=== PATIENT | female | born 1945 | race Caucasian/White ===

== ENCOUNTER 2016-11-29 08:26 | Inpatient (IN) ==
[2016-11-29] MEDS ORDERED: Famotidine 20 MG/2 ML VIAL IVP ONE (09:06)
[2016-11-29] MEDS ORDERED: cloNIDine HCl 0.1 MG TABLET PO ONE (09:07)
--- NOTE | 2016-11-29 09:11 | Anesthesia Evaluation PreOp ---
Date of Encounter: 11/29/16 Time of Encounter: 09:10 - Past History Planned Operation: Endoscopy Cardiac History: HTN Pulmonary History: Denies Any Significant HX MEDICAL RESEARCH TECH History: Denies Any Significant HX Other Medical History: Diabetes Type II, GERD, Other (Morbid Obesity) Anesthesia History: No Prior Anesthetic Complications : No Alcohol Use: none Drug use: none Medications and Allergies Alendronate Sodium [Fosamax] 70 mg PO QWEEK 11/15/15 [History] Aspirin [Adult Low Dose Aspirin EC] 81 mg PO DAILY 11/15/15 [History] Cholecalciferol (Vitamin D3) [Vitamin D3] 1,000 unit PO DAILY 11/15/15 [History] CloNIDine HCl [Clonidine HCl] 0.3 mg PO BID 11/15/15 [History] Furosemide [Lasix] 40 mg PO DAILY 11/15/15 [History] HydrALAZINE 25 mg PO TID 11/15/15 [History] Insulin ASPART [Novolog Flexpen] 15 unit SQ TIDWM 11/15/15 [History] Insulin Glargine,Hum.rec.anlog [Lantus Solostar] 65 unit SQ HS 11/15/15 [History ] Losartan Potassium [Cozaar] 100 mg PO DAILY 11/15/15 [History] Metformin [Glucophage] 1,000 mg PO BIDWM 11/15/15 [History] Metoprolol Tartrate [Lopressor] 50 mg PO BID 11/15/15 [History] Nystatin POWDER [Nystop] 1 appl TP BID PRN 11/15/15 [History] Oxybutynin Chloride [Ditropan Xl] 10 mg PO QPM 11/15/15 [History] Pravastatin Sodium [Pravachol] 80 mg PO DAILY 11/15/15 [History] Solifenacin Succinate [Vesicare] 10 mg PO QPM 11/15/15 [History] Alprazolam [Xanax 0.5 MG Tablet] 0.5 mg PO Q8HR PRN #30 tablet 11/19/15 [Rx] Albuterol Sulfate [Albuterol Inhaler] 2 puff IH Q4HR PRN 11/27/15 [History] Fluticasone/Salmeterol [Advair 100-50 Diskus] 1 puff IH BID PRN 11/27/15 [ History] Oxycodone HCl/Acetaminophen [Percocet 5-325 mg Tablet] 1 each PO Q6HR #30 tablet 12/03/15 [Rx] Ondansetron HCl [Zofran] 4 mg PO 2-3XD PRN #14 tablet 12/26/15 [Rx] Ibuprofen [Motrin] 800 mg PO Q8HR PRN 03/28/16 [History] Oxycodone HCl/Acetaminophen [Percocet 5-325 mg Tablet] 1 each PO Q6HR PRN [History] HYDROcodone/Acet 5/325 mg [Roby 5-325 mg] 1 tab PO Q6HR PRN #10 tablet [Rx] Ondansetron [Zofran] 8 mg PO Q8HR PRN #10 tablet 06/05/16 [Rx] Ferrous Sulfate 325 mg PO DAILY #90 tablet 10/05/16 [Rx] Allergies Sulfa (Sulfonamide Antibiotics) Allergy (Verified 03/30/16 14:46) Swelling of Lip/Tongue/Throat - Meds/Allergy Pre-op Review Medications Reviewed: Yes Allergies Reviewed: Yes Beta Blockers on Current Med List: Yes Anesthesia Results - Labs Laboratory Tests 02/08/16 11/17/16 11/17/16 14:01 14:10 14:10 Hgb 11.3 L Hct 37.6 Plt Count 334 Sodium 138 Potassium 4.0 BUN 24 H POC Creatinine 0.90 Anesthesia Exam O2 Sat Height 1.5 m Height 1.5 m Weight 91.626 kg Weight 91.626 kg O2 Sat by Pulse Oximetry 93 Vital Signs Temp Pulse Resp BP Pulse Ox 98.8 F 58 18 223/87 93 11/29/16 09:01 11/29/16 09:01 11/29/16 09:01 11/29/16 09:01 11/29/16 09:01 Height: 4'11 Weight: 202 lbs NPO (# of Hours): MN Pain Scale: 0 - HEENT Pupil (Motor): Pupils equal, EOMI Mallampati: III Oral Opening: Less than or equal to 3 - MEDICAL RESEARCH TECH LOC: Oriented MEDICAL RESEARCH TECH Motor: Normal RUE, Normal LUE, Normal RLE, Normal LLE, Normal Face MEDICAL RESEARCH TECH Sensory: Normal: RUE, LUE, RLE, LLE, Face - Cardiac Rhythm: Regular Murmur: None JVD: No Carotid Bruit: No - Pulmonary Breath Sounds: bilateral Clear Respiratory Effort: Symmetrical Anesthesia Assess/Plan ASA Score: 3 (MO HTN) Modified [place] Scale for Level of Consciousness: Cooperative, oriented, and tranquil Anesthetic Plan: MAC Monitoring Plan: Standard Monitors Recovery Plan: Other (Discussed MAC, agrees to proceed)
[2016-11-29] MEDS ORDERED: 0.9 % Sodium Chloride 1,000 ML IVC SCH (09:15)
[2016-11-29] MEDS ORDERED: CeFAZolin Pre 2,000 MG/100 ML 2,000 MG/100 ML BAG IVPB ONE (09:19)
[2016-11-29] MEDS ORDERED: Lidocaine -MPF 1% 2 ML VIAL ID ONE (09:19)
--- NOTE | 2016-11-29 09:19 | History & Physical Report ---
Date of Encounter: 11/29/16 Time of Encounter: 09:17 24 Hour HP Update - Instructions Instructions: If the History and Physical is less than 30 days old and was completed prior to A.M. admission and or procedure and has NOT been updated on calendar day of procedure please complete this update prior to performing procedure. - Update Patient reports changes in Medical Condition: No Changes in examination, assessment, or condition: No Changes in Medication: No Preop tests/diagnostics Reviewed: Yes Surgery Remains Indicated: Yes Consent for Planned Operative Procedure(s) Verified: Yes Additions to current History and Physical: all questions answered. films reviewed today - Pre-Operative Checklist Preoperative Checklist Indicated: Yes Prophylactic Antibiotic Ordered: Yes Home Medications Include Beta Laura: Yes Beta Laura Taken Today (Day of Surgery): Yes Beta Laura Taken Yesterday (Day Prior to Surgery): Yes Is VTE Prophylaxis Indicated?: Yes
[2016-11-29] MEDS ORDERED: Albuterol 2.5 MG/3 ML NEBULIZER IH ONE (09:21)
[2016-11-29] MEDS ORDERED: Ringers Solution, Lactated 1,000 ML IVC SCH (09:30)
--- NOTE | 2016-11-29 09:37 | Anesthesia Evaluation PreOp ---
Date of Encounter: 11/29/16 Time of Encounter: 09:35 - Past History Planned Operation: Left Partial Nephrectomy Cardiac History: AK, HTN, Hyperlipidemia, Cardiac Surgery (2003), Cardiac Stent (2003) Pulmonary History: KATINA Dx BUSHWALKING GUIDE History: Denies Any Significant HX Other Medical History: Diabetes Type II, Other (Morbid Obesity) Anesthesia History: No Prior Anesthetic Complications : No Alcohol Use: none Drug use: none Medications and Allergies Alendronate Sodium [Fosamax] 70 mg PO QWEEK 11/15/15 [History] Aspirin [Adult Low Dose Aspirin EC] 81 mg PO DAILY 11/15/15 [History] Cholecalciferol (Vitamin D3) [Vitamin D3] 1,000 unit PO DAILY 11/15/15 [History] CloNIDine HCl [Clonidine HCl] 0.3 mg PO BID 11/15/15 [History] Furosemide [Lasix] 40 mg PO Q48H 11/15/15 [History] Insulin ASPART [Novolog Flexpen] 15 unit SQ TIDWM 11/15/15 [History] Insulin Glargine,Hum.rec.anlog [Lantus Solostar] 65 unit SQ HS 11/15/15 [History ] Losartan Potassium [Cozaar] 100 mg PO DAILY 11/15/15 [History] Metformin [Glucophage] 1,000 mg PO BIDWM 11/15/15 [History] Metoprolol Tartrate [Lopressor] 50 mg PO BID 11/15/15 [History] Pravastatin Sodium [Pravachol] 80 mg PO HS 11/15/15 [History] Solifenacin Succinate [Vesicare] 10 mg PO 1500 11/15/15 [History] Albuterol Sulfate [Albuterol Inhaler] 2 puff IH Q4HR PRN 11/27/15 [History] Ferrous Sulfate 325 mg PO 1500 11/29/16 [History] Hydralazine HCl 100 mg PO TID 11/29/16 [History] [place]-3/Dha/Epa/Fish Oil [Fish Oil 1,000 mg Softgel] 1 each PO 1500 11/29/16 [ History] Allergies Sulfa (Sulfonamide Antibiotics) Allergy (Verified 11/29/16 09:22) Swelling of Lip/Tongue/Throat - Meds/Allergy Pre-op Review Medications Reviewed: Yes Allergies Reviewed: Yes Beta Blockers on Current Med List: Yes (Took Metoprolol today 0830) Anesthesia Results - Labs Laboratory Tests 02/08/16 11/17/16 11/17/16 14:01 14:10 14:10 Hgb 11.3 L Hct 37.6 Plt Count 334 Sodium 138 Potassium 4.0 BUN 24 H POC Creatinine 0.90 - Imaging EKG: pending Anesthesia Exam O2 Sat Height 1.5 m Height 1.5 m Weight 91.626 kg Weight 91.626 kg O2 Sat by Pulse Oximetry 93 Vital Signs Temp Pulse Resp BP Pulse Ox 98.8 F 58 18 223/87 93 11/29/16 09:01 11/29/16 09:01 11/29/16 09:01 11/29/16 09:01 11/29/16 09:01 Height: 4'11 Weight: 202 lbs NPO (# of Hours): MN Pain Scale: 0 - HEENT Pupil (Motor): Pupils equal, EOMI Mallampati: III Teeth: Normal Oral Opening: Less than or equal to 3 - BUSHWALKING GUIDE LOC: Oriented BUSHWALKING GUIDE Motor: Normal RUE, Normal LUE, Normal RLE, Normal LLE, Normal Face BUSHWALKING GUIDE Sensory: Normal: RUE, LUE, RLE, LLE, Face - Cardiac Rhythm: Irregular Murmur: None JVD: No Carotid Bruit: No - Pulmonary Breath Sounds: bilateral Clear Respiratory Effort: Symmetrical Anesthesia Assess/Plan ASA Score: 3 (CAD HTN DM) Modified Emmett Scale for Level of Consciousness: Cooperative, oriented, and tranquil Anesthetic Plan: General Monitoring Plan: Standard Monitors Recovery Plan: PACU (Discussed GA, agrees to proceed)
[2016-11-29] MEDS ORDERED: Heparin 1,000 UNITS/500 mL NS 500 ML ONE (09:46)
[2016-11-29] MEDS ORDERED: *HR* FentaNYL (PF) 100 MCG/2 ML VIAL ONE (09:49)
[2016-11-29] MEDS ORDERED: *HR* Propofol 200 MG/20 ML VIAL IVP ONE (09:50)
[2016-11-29] MEDS ORDERED: Lidocaine -MPF 2% 2 ML VIAL ONE ×2 (09:54→10:02)
[2016-11-29] MEDS ORDERED: Tetracaine/PF 20 MG/2 ML AMPUL SPINA ONE (10:25)
[2016-11-29] MEDS ORDERED: Bupivacaine/EPI 1:200k 0.25%PF 10 ML VIAL INFILT ONE (10:30)
[2016-11-29] MEDS ORDERED: *HR* Midazolam HCl 2 MG/2 ML VIAL ONE (10:33)
[2016-11-29] MEDS ORDERED: Ketamine *HR* 500 MG/10 ML MDV ONE (11:24)
[2016-11-29] MEDS ORDERED: *HR* Magnesium Sulfate 1 GM/2 ML VIAL ONE (11:29)
[2016-11-29] MEDS ORDERED: NiCARdipine 2.5 MG/10 ML Syringe IVPB ONE (11:41)
[2016-11-29] MEDS ORDERED: Dexamethasone 4 MG/ML VIAL ONE (11:54)
[2016-11-29] MEDS ORDERED: *HR* Rocuronium Bromide 50 MG/5 ML VIAL ONE (12:04)
[2016-11-29] MEDS ORDERED: *HR* HYDROmorphone (PF) 1 MG/ML SYRINGE IVP PRN ×2 (12:22→16:15)
[2016-11-29] MEDS ORDERED: *HR* Promethazine 25 MG/ML VIAL IVP PRN (12:22)
--- NOTE | 2016-11-29 12:26 | Anesthesia Procedures ---
Date of Encounter: 11/29/16 Time of Encounter: 10:50 Procedures: Anesthesia - Arterial Line Consent obtained: written consent Time out performed: Yes Sedation: Versed (mg): 2 Sedation: Fentanyl (mcg): 100 Supplemental Oxygen via Nasal Cannula (L/min): 10 (facemask) Local Anesthetic: Lidocaine 1% Amount of Anesthetic used (mls): 1 Size (Gauge): 20 Length (inches): 1 3/4 Technique Used: sterile prep, guide wire technique, direct puncture technique Post-Procedure: line taped into place, dry sterile dressing placed Patient tolerated procedure: well, no complications Complications: none Site: Radial L Vitals: see anesthetic record
[2016-11-29] MEDS ORDERED: Ondansetron 4 MG/2 ML VIAL ONE (13:22)
[2016-11-29] MEDS ORDERED: Acetaminophen IV 1,000 MG/100 ML INFUS..BTL ONE (13:22)
[2016-11-29] MEDS ORDERED: Neostigmine Methylsulfate 3 MG/3 ML SYRINGE ONE (13:24)
[2016-11-29] MEDS ORDERED: *HR* HYDROmorphone 2 MG/ML SYRINGE ONE (13:31)
--- NOTE | 2016-11-29 13:54 | Operative Note ---
Date of procedure: 11/29/16 Pre-op diagnosis: left renal mass Post-op diagnosis: same Procedure: left hand assist laparoscopic nephrectomy Anesthesia: GETA Surgeon: Ori Posada Estimated blood loss (cc): 100 Specimen: left kidney Condition: stable Disposition: PACU Procedure in Detail: Patient was taken back to the operating room and position supine on the operating table. Anesthesia was applied without complication. Membreno catheter was placed with return of clear urine. IVs and arterial line placed. Patient was moved into a modified 45 left flank position. Patient was secured with tape and the safety belt. She was prepped and draped sterile fashion. Timeout was performed to confirm the proper patient and procedure. Films were available for review which confirmed a 4+ centimeter left renal mass. It was also noted that she had 2 renal arteries. I began the procedure by making a 7 cm incision to the left lateral aspect of her umbilicus in a vertical orientation. There was an umbilical hernia in this location and I carefully dissected down until I entered the peritoneum. I used a Godwin retractor to examine the abdomen prior to placing my hand port. There were a moderate amount of adhesions from previous surgery. These were fairly easy to reflect off of the abdominal wall using blunt dissection and Metzenbaum scissors. At that point I placed the GelPort and provided pneumoperitoneum with a 12 mm port through the GelPort. I eventually placed 2 additional 12 mm ports one along the midline superior to the GelPort and the other in the left lower quadrant. These were placed down on to the surgeon's hand which protecting the intra-abdominal contents. I began the laparoscopic portion of procedure by using the harmonic scalpel to reflect the left colon along the white line of Toldt from the splenic flexure down to the sigmoid colon. There were no obvious complications during the reflection of the colon. This exposed the retroperitoneum and I did identify the left kidney. Using the Harmonic I was able to free up some of the attachments beneath the spleen to further allow the colon to fall medially. I had airplaned the table to create a more lateral position to help with this reflection and exposure of the kidney. Working near the tail of Gerota's fascia I identified a sizable gonadal vein. This was seen preoperatively on the MRI. I was able to dissect the gonadal vein allowing room for the endovascular stapler to transect the vessel. I then carried my dissection superiorly along the gonadal vein and I encountered the renal vein. Inferior and posterior to the renal vein identified the lower pole renal artery. Using a combination of blunt dissection, suction, the Harmonic I was able to free up enough space to staple the renal artery using the endovascular stapler. I then began to dissect around the renal vein and identified the second renal artery posterior to the vein. During this maneuver I had some bleeding from the gonadal vein which required a large staple to control. The staple was placed at the junction of the gonadal vein and renal vein. I was eventually able to place the endovascular stapler around both the renal vein and artery on the renal side of the gonadal vein. The hilum was transected at this point. I used 3 additional staple loads to aid in dissection along the adrenal gland and superior aspects of the kidney. Remaining attachments of the kidney were dissected using the harmonic until the kidney was completely free. The ureter was transected with the Harmonic scalpel . I removed the hand port and placed the large Endo Catch bag through the abdominal incision. I was able to maneuver the specimen into the bag without difficulty. I was able to extract the bag and kidney without increasing the incision. I replaced the GelPort and pneumoperitoneum. I examined the hilum carefully and there was no significant bleeding and all bowel appeared intact. The lap pad that was placed within the abdomen was removed. I closed the hand port incision using #1 loop PDS. I simultaneously closed the defect in the umbilical hernia. Safia's tissue was closed with 0 Vicryl and the skin with 4- 0 Monocryl. Steri-Strips and an island dressing were placed. The 12 mm ports were closed with 2-0 Vicryl and Steri-Strips.
--- NOTE | 2016-11-29 14:04 | Anesthesia Procedures ---
Date of Encounter: 11/29/16 Time of Encounter: 14:01 Procedures: Anesthesia - Nerve Block Procedure Date: 11/29/16 Time: 14:02 Allergies/Adv Reactions: sulfa antibiotics Pre-op Diagnosis: L renal mass Surgical Procedure: Laparoscopic hand assisted L radical nephrectomy Checklist: Correct Patient Identifier, Correct procedure, History checked Correct side: Left Blood Thinner: No Monitor Applied: EKG, BP, Pulse Oximetry Supplemental Oxygen via Nasal Cannula (L/min): 2 (via ETT) Indication: Post Op Analgesia Pre-op Neuro Deficits: No Block Type: Other (quadratus lumborum block) Catheter placed: No Sterile Technique: Yes Ultrasound used: Yes Anatomy identified: Yes Visual spread of Local: Yes Neuro Stimulation: No Blood on Needle Aspiration: No Smooth Injection of Local: Yes Prep: Chlorhexadine Needle: 21 x 100 mm Stimuplex (echogenic) Local: Tetracaine (2mL of 1%), Other (30mL of 0.25% bupivicaine) Number of Attempts: 1 Complications: None/effective block Vitals: see anesthesia record
[2016-11-29] MEDS ORDERED: Bupivacaine/Clonidine Syringe 1 EACH SYRINGE ONE (14:28)
--- NOTE | 2016-11-29 15:15 | Internal Medicine Consult Note ---
<Lulu Quinteroaju T - Last Filed: 11/29/16 18:22> Date of Encounter: 11/29/16 Internal Medicine - CN: HPI - Data of Consult Requesting Physician: Ori Posada - Consult Narrative History of present illness: Ms. Hitchcock is a 71 year old female Internal Medicine - CN: Meds Alendronate Sodium [Fosamax] 70 mg PO QWEEK 11/15/15 [History] Aspirin [Adult Low Dose Aspirin EC] 81 mg PO DAILY 11/15/15 [History] Cholecalciferol (Vitamin D3) [Vitamin D3] 1,000 unit PO DAILY 11/15/15 [History] CloNIDine HCl [Clonidine HCl] 0.3 mg PO BID 11/15/15 [History] Furosemide [Lasix] 40 mg PO Q48H 11/15/15 [History] Insulin ASPART [Novolog Flexpen] 15 unit SQ TIDWM 11/15/15 [History] Insulin Glargine,Hum.rec.anlog [Lantus Solostar] 65 unit SQ HS 11/15/15 [History ] Losartan Potassium [Cozaar] 100 mg PO DAILY 11/15/15 [History] Metformin [Glucophage] 1,000 mg PO BIDWM 11/15/15 [History] Metoprolol Tartrate [Lopressor] 50 mg PO BID 11/15/15 [History] Pravastatin Sodium [Pravachol] 80 mg PO HS 11/15/15 [History] Solifenacin Succinate [Vesicare] 10 mg PO 1500 11/15/15 [History] Albuterol Sulfate [Albuterol Inhaler] 2 puff IH Q4HR PRN 11/27/15 [History] Ferrous Sulfate 325 mg PO 1500 11/29/16 [History] Hydralazine HCl 100 mg PO TID 11/29/16 [History] [place]-3/Dha/Epa/Fish Oil [Fish Oil 1,000 mg Softgel] 1 each PO 1500 11/29/16 [ History] Allergies Sulfa (Sulfonamide Antibiotics) Allergy (Verified 11/29/16 09:22) Swelling of Lip/Tongue/Throat Internal Medicine - CN: Exam - Constitutional Vitals: Temp Pulse Resp BP Pulse Ox 97.2 F L 65 16 163/80 97 11/29/16 17:46 11/29/16 17:46 11/29/16 17:46 11/29/16 17:46 11/29/16 17:46 Internal Medicine - CN: Reslt - Labs CBC & Chem 7: 11/29/16 16:20 Labs: BMP 11/29/16 16:20 Sodium 135 L Potassium 4.8 H Chloride 102 Carbon Dioxide 20 BUN 23 H Creatinine 1.30 H Glucose 309 H Calcium 9.1 Consult Discharge Plan - Plan Referrals: Ping Rich DO [Primary Care Provider] - - Attending Attestation I have independently interviewed and examined this patient. I agree with the resident/practitioner with extensions as stated below. The plan of care has been discussed with the patient, resident and rest of the team 71 Y/O F, medicine is consulted by ANJALI for management of her multiple medical conditions. She has an extensive PMH including HTN, chronically uncontrolled ( as per family members at the bedside), KATINA, Uncontrolled DM, CAD s/p CABG, CHFpEF, Stage I Colon CA s/p bowel resection 1 year ago, Renal cell CA s/p nephrectomy today 11/29/16 Seen at bedside post-op with family, easily arousable , not in distress, BP is better now. Physical exam VSS, chest wall scar, Hs S1, S2, Systolic murmurs, metallic click, CTAB, no added sounds. Abdomen is soft, wound dressings clean, no pedal edema No current labs to review. A1C >9 10/2016 Assessment/Plan: HTN Urgency post-op, controlled now, after nerve block, resume home meds, Hold Cozar till chemistry is back, FS ACHS, Resume basal insulin at half dose and continue low dose sliding scale insulin, resume other home meds, rest of details as in INORGANIC CHEMISTRY PROFESSOR Isaac documentation <Itzel Gray - Last Filed: 11/29/16 18:49> Date of Encounter: 11/29/16 Time of Encounter: 15:14 - Assessment and Plan (1) Hypertensive urgency Current Visit: Yes Status: Acute Assessment and plan: 1 has past history of noncompliant hypertension. Patient is on multiple medications for blood pressure including Lopressor Cozaar hydralazine and clonidine. Patient underwent left nephrectomy today. Prior to procedure patient's blood pressure was systolic over 200. She was given by mouth clonidine. However postoperatively patient's blood pressure continued to be elevated 200 systolic. She was given hydralazine with little response. Patient was also given nerve block which did improve patient's blood pressure. Once patient is taking oral medications we will resume home medications. we will hold losartan dt elevation in creatinine and potassium We will give patient hydralazine as needed for systolic greater than 180 goal is to maintain systolic around 160 2 we will check lab work 3 low sodium diet once patient is eating 4 monitor weight (2) Status post nephrectomy Current Visit: Yes Status: Acute Assessment and plan: 1 patient has history of renal cell carcinoma underwent left nephrectomy today- managed per Dr. Posada (3) KATINA (obstructive sleep apnea) Current Visit: Yes Status: Acute Assessment and plan: 1 she has history obstructive sleep apnea she does not use CPAP at home patient on oxygen at night will continue (4) Coronary artery disease Current Visit: No Status: Chronic Assessment and plan: 1 recent has history of coronary disease she did have a CABG 04/10. We will continue with beta amos ARB statin Qualifiers: Coronary Disease-Associated Artery/Lesion type: bypass graft Elim Ira vs. transplanted heart: quileute heart Associated angina: without angina Qualified Code(s): I25.810 - Atherosclerosis of coronary artery bypass graft(s) without angina pectoris (5) Diabetes mellitus Current Visit: No Status: Chronic Assessment and plan: 1 uncontrolled diabetes patient's last A1c is 9.2. We will continue with Accu- Cheks before meals and at bedtime as well as sliding scale and basal insulin. We will hold metformin for now. Goal is to maintain postprandial less than 180 2 diabetic diet Qualifiers: Diabetes mellitus type: type 2 Diabetes mellitus complication status: with hyperglycemia Diabetes mellitus exterminator helper insulin use: with exterminator helper use Qualified Code(s): E11.65 - Type 2 diabetes mellitus with hyperglycemia; Z79.4 - intermediate accountant (current) use of insulin (6) Malignant tumor of ascending colon Current Visit: No Status: Chronic Assessment and plan: 1 patient diagnosed stage I colon cancer. She is being followed by oncology with outpatient follow-up as outpatient and consult as needed (7) Renal mass, left Current Visit: No Status: Chronic Assessment and plan: 1 patient underwent right nephrectomy today she is being managed by Dr. Posada. We will have patient follow-up with oncology and consult as needed (8) CKD (chronic kidney disease) stage 2, GFR 60-89 ml/min Current Visit: Yes Status: Chronic Assessment and plan: 1 patient's creatinine presently 1.11 GFR is 48. We will continue to monitor 2 monitor intake and output daily weights 3 avoid nephrotoxins (9) DVT prophylaxis Current Visit: Yes Status: Acute Assessment and plan: 1 [facility] [place] [place] [facility] - CN: HPI - Data of Consult Patient: new to practice Consult date: 11/29/16 Requesting Physician: Ori Posada - Consult Narrative Reason for consult: managment of hypertension History of present illness: Ms. Hitchcock is a 71 year old female past medical history of CHF CAD history of CABG 04/10 hypertension ID KATINA renal cell carcinoma stage I colon cancer. Formation obtained from medical records as well as stap since patient postoperative continues to be sedated. She was diagnosed in October with renal cell carcinoma left upper pole mass 3.5 x 3.95x5. She presented today to undergo left nephrectomy due to carcinoma. Upon presentation patient's blood pressure was 200 systolic. She was given clonidine by mouth. She underwent surgical procedure without any complications however postoperatively patient continued to have elevated blood pressure was systolic 200s. She was given hydralazine IV patient with little results. She was given a nerve block which did lower her systolic down to 180s. Patient does have a history of uncontrolled hypertension. Her baseline is around 170-180. Hospitalist services have been consulted for management of hypertension. Presently patient is is in PACU she is groggy however arouses to verbal stimuli. She denies any pain or discomfort at this time. Her blood pressure is 200 systolic. She is maintaining her airway at this time. I reviewed this case with Dr. Quintero who agrees with plan. Past Med Surg Social Fam HX - Past Medical History Medical history: arthritis, asthma, cancer, CHF, coronary artery disease, diabetes, hyperlipidemia, hypertension, myocardial infarction Psychiatric history: anxiety, depression - Past Surgical History Surgical History: angioplasty/stent, cholecystectomy, coronary bypass (CABG) - Social History Smoking Status: Never smoker Smokeless Tobacco Status: No Alcohol use: none Drug use: none - Family History Mother Family Member Ethnicity: Non- Living Status: Hx Family Cardiac Disorders: No Hx Family Respiratory Disorders: No Hx Family Cancer: Yes (rectal Ca) Hx Family GI Disorders: No Hx Family Endocrine Disorder: No Hx Family Neuromuscular Disorders: No Hx Family Neurologic Disorders: No Hx Family HEENT Disorders: No Hx Family Autoimmune Disorders: No ROS unobtainable: other (Sedation) Internal Medicine - CN: Exam - Constitutional Vitals: Temp Pulse Resp BP Pulse Ox 97.9 F 61 10 204/80 97 11/29/16 14:52 11/29/16 15:12 11/29/16 15:12 11/29/16 15:12 11/29/16 15:12 General appearance IM: Present: A&O X 1 Exam: Patient is groggy - Head Head exam: Present: atraumatic - Eye Eye exam: Present: PERRL - Respiratory Respiratory exam: Present: CTAB - Cardiovascular Cardiovascular exam IM: Present: systolic murmur - Expanded Cardiovascular Exam Type of murmur: Present: systolic Intensity: 2/6 - Additional comments: Has mid abdominal incision with dressing intact no redness swelling or drainage noted - Extremities Exam Extremities exam IM: Present: warm, radial pulses palpable and symetrical - Neurological Exam Additional comments: Patient is sedated but arouses to name and follows some commands - Skin Skin exam IM: Present: dry Internal Medicine - CN: Reslt - Labs CBC & Chem 7: 11/29/16 16:20
--- NOTE | 2016-11-29 15:48 | Anesthesia Evaluation Post Op ---
Date of Encounter: 11/29/16 Time of Encounter: 15:45 - Vital Signs Vital Signs: Vital Signs/O2 Sat/Glucose, Most Current Temp Pulse Resp BP Pulse Ox 11/29/16 15:32 65 12 198/73 94 11/29/16 15:22 97.4 F L 58 13 197/86 95 11/29/16 15:12 61 10 204/80 97 11/29/16 15:02 52 12 224/97 96 11/29/16 14:52 97.9 F 56 11 188/80 98 11/29/16 14:42 57 12 184/84 97 11/29/16 14:32 57 12 181/76 95 11/29/16 14:22 98.5 F 55 10 174/75 93 - Lungs Lungs: Clear Ascult./Percussion - Airway Airway: Non-obstructed - Cardiovascular Regular Rate - Mental Status Mental Status: Alert & Oriented, Answers Appropriately - Pain Pain Scale: 0 - Nausea Vomiting Nausea Vomiting: Not Present - Hydration Hydration: Ice chips - Discharge PostOp Status: Transfer Patient to floor
[2016-11-29] MEDS ORDERED: *HR* Dextrose 50 % in Water (Syg) 50 ML SYRINGE IVP PRN (16:15)
[2016-11-29] MEDS ORDERED: *HR* Morphine 2 MG/ML SYRINGE IVP PRN (16:15)
[2016-11-29] MEDS ORDERED: Naloxone 0.4 MG/ML INJ IVP PRN (16:15)
[2016-11-29] MEDS ORDERED: D5% in Water 1,000 ML IVC PRN (16:15)
[2016-11-29] MEDS ORDERED: *HR* Promethazine 25 MG/ML VIAL IV PRN (16:15)
[2016-11-29] MEDS ORDERED: Dextrose Gel 15 GM PO PRN ×2 (16:15)
[2016-11-29] MEDS ORDERED: Ondansetron 4 MG/2 ML VIAL IVP PRN (16:15)
[2016-11-29 16:58] LABS: Calcium 9.1 mg/dL (8.6-10.8); Potassium 4.8 mEq/L (3.5-4.5)
[2016-11-29] MEDS: 0.9 % Sodium Chloride 1,000 ML IVC SCH (17:32)
[2016-11-29] MEDS: Insulin LISPRO 300 UNITS/3 ML VIAL SQ SCH ×2 (17:33→23:46)
[2016-11-29] MEDS: hydrALAZINE 25 MG TABLET PO SCH ×2 (17:33→21:05)
[2016-11-29] MEDS: ceFAZolin 2,000 MG in D5% in Water 100 ML IVPB SCH ×2 (18:49→23:39)
[2016-11-29] MEDS: cloNIDine HCl 0.1 MG TABLET PO SCH (20:59)
[2016-11-29] MEDS: Insulin DETEMIR 100 UNIT/ML X5UNITS SQ SCH (21:00)
[2016-11-30] MEDS: 0.9 % Sodium Chloride 1,000 ML IVC SCH ×3 (04:13→20:43)
[2016-11-30 04:20] LABS: Basophils % 0.2 %; Hematocrit 34.2 % (35.3-44.9); Hemoglobin 10.8 g/dL (11.5-15.4); Immature Granulocytes % 0.7 % (0-4); Lymphocytes # 0.8 K/mcL (0.6-4.6); Lymphocytes % 3.9 %; Mean Corpuscular HGB Conc 31.6 g/dL (31.6-35.5); Mean Corpuscular Volume 79.2 fL (83.0-100.0); Mean Platelet Volume 11.3 fL (9.4-12.4); Monocytes # 2.4 K/mcL (0.0-1.3); Monocytes % 11.4 %; Neutrophils # 17.6 K/mcL (1.6-8.9); Platelet Count 289 K/mcL (140-400); Red Blood Count 4.32 M/mcL (3.82-4.97); Red Cell Distribution Width 15.9 % (11.5-14.5); Segmented Neutrophils % 83.8 %
[2016-11-30 04:38] LABS: Calcium 8.5 mg/dL (8.6-10.8); Potassium 4.8 mEq/L (3.5-4.5)
[2016-11-30] MEDS: Insulin LISPRO 300 UNITS/3 ML VIAL SQ SCH ×3 (05:30→18:07)
--- NOTE | 2016-11-30 07:12 | Urology Progress Note ---
Date of Encounter: 11/30/16 Time of Encounter: 07:03 - Assessment and Plan (1) Acute renal insufficiency due to procedure Current Visit: Yes Status: Acute Assessment and plan: expected rise in Cr. she had some chronic renal insufficiency preoperatively ( GFR 58). will watch closely. increase IVF bc HTN is controlled. (2) Status post nephrectomy Current Visit: Yes Status: Acute Assessment and plan: post op she looks great. smiling and states she feels good. need to continue to get out of bed. Progress Note Subjective: feels better Narrative: minimal pain. no nausea. has been up out of bed to chair Objective Initial Vital Signs Temp Pulse Resp BP Pulse Ox 98.8 F 58 18 223/87 93 11/29/16 09:01 11/29/16 09:01 11/29/16 09:01 11/29/16 09:01 11/29/16 09:01 - General physical appearance Present: no distress, no pain - Abdomen Present: soft. Absent: distended - Genitourinary Urine Appearance: Present: Clear - Additional Exam dressings removed. incisions intact. - Labs 11/30/16 04:00 11/30/16 04:00 Diabetes panel 11/29/16 11/30/16 Range/Units 16:20 04:00 Sodium 135 L 132 L (136-145) mEq/L Potassium 4.8 H 4.8 H (3.5-4.5) mEq/L Chloride 102 101 (98-109) mEq/L Carbon Dioxide 20 23 (19-29) mEq/L BUN 23 H 27 H (7-20) mg/dL Creatinine 1.30 H 1.78 H (0.57-1.11) mg/dL Glucose 309 H 262 H (70-99) mg/dL Calcium 9.1 8.5 L (8.6-10.8) mg/dL Calcium panel 11/29/16 11/30/16 Range/Units 16:20 04:00 Calcium 9.1 8.5 L (8.6-10.8) mg/dL Pituitary panel 11/29/16 11/30/16 Range/Units 16:20 04:00 Sodium 135 L 132 L (136-145) mEq/L Potassium 4.8 H 4.8 H (3.5-4.5) mEq/L Chloride 102 101 (98-109) mEq/L Carbon Dioxide 20 23 (19-29) mEq/L BUN 23 H 27 H (7-20) mg/dL Creatinine 1.30 H 1.78 H (0.57-1.11) mg/dL Glucose 309 H 262 H (70-99) mg/dL Calcium 9.1 8.5 L (8.6-10.8) mg/dL Adrenal panel 11/29/16 11/30/16 Range/Units 16:20 04:00 Sodium 135 L 132 L (136-145) mEq/L Potassium 4.8 H 4.8 H (3.5-4.5) mEq/L Chloride 102 101 (98-109) mEq/L Carbon Dioxide 20 23 (19-29) mEq/L BUN 23 H 27 H (7-20) mg/dL Creatinine 1.30 H 1.78 H (0.57-1.11) mg/dL Glucose 309 H 262 H (70-99) mg/dL Calcium 9.1 8.5 L (8.6-10.8) mg/dL - VTE Documentation of Mechanical Device: Intermittent pneumatic compression device Consult Discharge Plan - Plan Referrals: Ping Rich DO [Primary Care Provider] -
[2016-11-30] MEDS: cloNIDine HCl 0.1 MG TABLET PO SCH ×2 (09:07→20:44)
[2016-11-30] MEDS: hydrALAZINE 25 MG TABLET PO SCH ×3 (09:08→20:44)
[2016-11-30] MEDS: ceFAZolin 2,000 MG in D5% in Water 100 ML IVPB SCH (09:39)
[2016-11-30] MEDS ORDERED: Ondansetron 4 MG/2 ML VIAL IVP PRN (15:22)
--- NOTE | 2016-11-30 17:59 | Electrocardiograph Report ---
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
[2016-11-30] MEDS: *HR* Heparin 5,000 UNIT/ML VIAL SQ SCH (18:07)
--- NOTE | 2016-11-30 18:44 | Internal Med Progress Note ---
Date of Encounter: 11/30/16 Time of Encounter: 11:00 - Assessment and plan (1) Uncontrolled type 2 diabetes mellitus with insulin therapy Current Visit: Yes Status: Acute Assessment and plan: We will manage her diabetes with insulin Levemir and Humalog pre-meal and sliding scale. (2) Coronary artery disease Current Visit: No Status: Chronic Assessment and plan: Continue with aspirin and metoprolol. Qualifiers: Coronary Disease-Associated Artery/Lesion type: bypass graft [place] vs. transplanted heart: [place] heart Associated angina: without angina Qualified Code(s): I25.810 - Atherosclerosis of coronary artery bypass graft(s) without angina pectoris (3) KATINA (obstructive sleep apnea) Current Visit: Yes Status: Acute Assessment and plan: noncompliant w/ CPAP (4) Hypertensive urgency Current Visit: Yes Status: Acute Assessment and plan: Continue oral hydralazine , losartan, metoprolol and clonidine. (5) CKD (chronic kidney disease) stage 2, GFR 60-89 ml/min Current Visit: Yes Status: Chronic (6) DVT prophylaxis Current Visit: Yes Status: Acute - Subjective Interval history: Patient status post left nephrectomy. Currently complains of moderate dull abdominal pain, improved with IV pain medication. - Constitutional Vitals: Temp Pulse Resp BP Pulse Ox 98.2 F 55 18 153/56 98 11/30/16 15:44 11/30/16 15:44 11/30/16 15:44 11/30/16 15:44 11/30/16 15:44 General appearance: Present: A&O X 1 - Respiratory Respiratory exam: Present: CTAB. Absent: accessory muscle use, rales, rhonchi, wheezes - Cardiovascular Cardiovascular exam: Present: RRR, +S1, +S2. Absent: diastolic murmur, gallop, rubs, systolic murmur - GI/Abdominal GI/Abdominal exam: Present: normal bowel sounds, soft, no peritoneal signs. Absent: distended, tenderness - Skin Skin exam: Present: dry, intact Internal Medicine: Result - Labs CBC & Chem 7: 11/30/16 04:00 11/30/16 04:00 Labs: Short CBC 11/30/16 Range/Units 04:00 WBC 21.0 H (4.3-11.1) K/mcL Hgb 10.8 L (11.5-15.4) g/dL Hct 34.2 L (35.3-44.9) % Plt Count 289 (140-400) K/mcL Neutrophils # 17.6 H (1.6-8.9) K/mcL BMP 11/30/16 04:00 Sodium 132 L Potassium 4.8 H Chloride 101 Carbon Dioxide 23 BUN 27 H Creatinine 1.78 H Glucose 262 H Calcium 8.5 L - VTE Documentation of Mechanical Device: Intermittent pneumatic compression device Consult Discharge Plan - Plan Referrals: Ping Rich DO [Primary Care Provider] -
[2016-11-30] MEDS: Insulin DETEMIR 100 UNIT/ML X5UNITS SQ SCH (20:45)
[2016-12-01] MEDS: 0.9 % Sodium Chloride 1,000 ML IVC SCH (03:50)
[2016-12-01] MEDS: *HR* Heparin 5,000 UNIT/ML VIAL SQ SCH ×2 (06:01→17:11)
[2016-12-01] MEDS ORDERED: *HR* HYDROcodone/Acet 5/325 mg TABLET PO PRN (07:06)
[2016-12-01] MEDS ORDERED: *HR* Morphine 2 MG/ML SYRINGE IVP PRN (07:08)
--- NOTE | 2016-12-01 07:11 | Urology Progress Note ---
Date of Encounter: 12/01/16 Time of Encounter: 07:08 - Assessment and Plan (1) Acute renal insufficiency due to procedure Current Visit: Yes Status: Acute Assessment and plan: check labs (2) Status post nephrectomy Current Visit: Yes Status: Acute Assessment and plan: advance diet. pt needs to spend significant time out of bed today. change to PO pain meds. decrease IVF. getting closer to discharge. probably tomorrow depending on labs. Progress Note Subjective: feels better Narrative: states she is urinating well. able to transfer self. no nausea. Objective Initial Vital Signs Temp Pulse Resp BP Pulse Ox 98.8 F 58 18 223/87 93 11/29/16 09:01 11/29/16 09:01 11/29/16 09:01 11/29/16 09:01 11/29/16 09:01 - General physical appearance Present: well developed, no distress - Psychiatric Present: oriented to time, oriented to person, oriented to place - Additional Exam abd benign. not distended. incisions closed and dry - Labs 11/30/16 04:00 11/30/16 04:00 - VTE Documentation of Mechanical Device: Intermittent pneumatic compression device Consult Discharge Plan - Plan Referrals: Ping Rich DO [Primary Care Provider] -
[2016-12-01] MEDS ORDERED: 0.9 % Sodium Chloride 1,000 ML IVC SCH (07:15)
[2016-12-01] MEDS: Insulin LISPRO 300 UNITS/3 ML VIAL SQ SCH ×4 (07:50→20:56)
[2016-12-01] MEDS: hydrALAZINE 25 MG TABLET PO SCH ×3 (07:58→19:42)
[2016-12-01] MEDS: cloNIDine HCl 0.1 MG TABLET PO SCH ×3 (07:58→19:43)
[2016-12-01 08:40] LABS: Hematocrit 36.4 % (35.3-44.9); Hemoglobin 10.8 g/dL (11.5-15.4); Mean Corpuscular HGB Conc 29.7 g/dL (31.6-35.5); Mean Corpuscular Hemoglobin 23.8 pg (28.0-33.3); Mean Corpuscular Volume 80.4 fL (83.0-100.0); Mean Platelet Volume 11.2 fL (9.4-12.4); Platelet Count 286 K/mcL (140-400); Red Blood Count 4.53 M/mcL (3.82-4.97); Red Cell Distribution Width 16.2 % (11.5-14.5)
[2016-12-01] MEDS ORDERED: Furosemide 20 MG TABLET PO SCH (10:00)
[2016-12-01 10:45] LABS: Calcium 8.6 mg/dL (8.6-10.8); Potassium 4.1 mEq/L (3.5-4.5)
[2016-12-01] MEDS ORDERED: cloNIDine HCl 0.1 MG TABLET PO ONE (16:52)
--- NOTE | 2016-12-01 17:42 | Internal Med Progress Note ---
Date of Encounter: 12/01/16 Time of Encounter: 17:38 - Assessment and plan (1) Uncontrolled type 2 diabetes mellitus with insulin therapy Current Visit: Yes Status: Acute Assessment and plan: We will manage her diabetes with insulin Levemir and Humalog pre-meal and sliding scale. Blood glucose 4 times daily but a controlled today. (2) Coronary artery disease Current Visit: No Status: Chronic Assessment and plan: Continue with aspirin and metoprolol. Qualifiers: Coronary Disease-Associated Artery/Lesion type: bypass graft [place] vs. transplanted heart: [place] heart Associated angina: without angina Qualified Code(s): I25.810 - Atherosclerosis of coronary artery bypass graft(s) without angina pectoris (3) KATINA (obstructive sleep apnea) Current Visit: Yes Status: Acute Assessment and plan: noncompliant w/ CPAP (4) Hypertensive urgency Current Visit: Yes Status: Acute Assessment and plan: Continue oral hydralazine , losartan, metoprolol. Increase clonidine to 0.2 mg oral 3 times a day. Consult nephrology for CKD and uncontrolled hypertension. (5) CKD (chronic kidney disease) stage 2, GFR 60-89 ml/min Current Visit: Yes Status: Chronic Assessment and plan: Now status post nephrectomy. Will consult nephrology. Avoid nephrotoxins. Monitor GFR daily. (6) DVT prophylaxis Current Visit: Yes Status: Acute - Subjective Interval history: Patient status post left nephrectomy. Currently complains of mild dull abdominal pain, improved with IV pain medication. - Constitutional Vitals: Temp Pulse Resp BP Pulse Ox 98.2 F 76 16 214/72 96 12/01/16 15:48 12/01/16 15:48 12/01/16 15:48 12/01/16 16:39 12/01/16 15:48 General appearance: Present: A&O X 1 - Eye Eye exam: Present: PERRL, conjuntiva pink, sclera anicteric Pupils: Present: PERRL - Respiratory Respiratory exam: Present: CTAB. Absent: accessory muscle use, rales, rhonchi, wheezes - Cardiovascular Cardiovascular exam: Present: RRR, +S1, +S2. Absent: diastolic murmur, gallop, rubs, systolic murmur - GI/Abdominal GI/Abdominal exam: Present: normal bowel sounds, soft, no peritoneal signs. Absent: distended, tenderness - Neurological Exam Neurological exam: Present: CN II-XII intact, oriented X3, no focal deficits. Absent: pronater drift, facial droop, speech deficit Internal Medicine: Result - Labs CBC & Chem 7: 12/01/16 08:02 12/01/16 08:02 Labs: Short CBC 12/01/16 Range/Units 08:02 WBC 18.2 H (4.3-11.1) K/mcL Hgb 10.8 L (11.5-15.4) g/dL Hct 36.4 (35.3-44.9) % Plt Count 286 (140-400) K/mcL BMP 12/01/16 08:02 Sodium 137 Potassium 4.1 Chloride 107 Carbon Dioxide 19 BUN 21 H Creatinine 1.38 H Glucose 75 Calcium 8.6 - VTE Documentation of Mechanical Device: Intermittent pneumatic compression device Consult Discharge Plan - Plan Referrals: Ping Rich DO [Primary Care Provider] -
[2016-12-01] MEDS: Insulin DETEMIR 100 UNIT/ML X5UNITS SQ SCH (20:55)
[2016-12-02 04:46] LABS: Hematocrit 34.8 % (35.3-44.9); Hemoglobin 10.4 g/dL (11.5-15.4); Mean Corpuscular HGB Conc 29.9 g/dL (31.6-35.5); Mean Corpuscular Volume 80.2 fL (83.0-100.0); Mean Platelet Volume 11.2 fL (9.4-12.4); Platelet Count 237 K/mcL (140-400); Red Blood Count 4.34 M/mcL (3.82-4.97); Red Cell Distribution Width 16.1 % (11.5-14.5); Segmented Neutrophils % 77.9 %
[2016-12-02 04:47] LABS: Basophils % 0.3 %; Eosinophils # 0.3 K/mcL (0.0-0.6); Eosinophils % 2.1 %; Immature Granulocytes % 0.5 % (0-4); Lymphocytes # 0.8 K/mcL (0.6-4.6); Lymphocytes % 6.6 %; Monocytes # 1.5 K/mcL (0.0-1.3); Monocytes % 12.6 %; Neutrophils # 9.1 K/mcL (1.6-8.9)
[2016-12-02 05:01] LABS: Calcium 8.6 mg/dL (8.6-10.8); Magnesium 1.6 mg/dL (1.6-2.6)
[2016-12-02] MEDS: *HR* Heparin 5,000 UNIT/ML VIAL SQ SCH (06:07)
[2016-12-02 07:01] VITALS: BP 189/71
--- NOTE | 2016-12-02 07:26 | Discharge Summary ---
Date of Encounter: 12/02/16 Time of Encounter: 07:24 - Discharge Diagnosis (1) Acute renal insufficiency due to procedure Priority: Primary Status: Resolved (2) Status post nephrectomy Priority: Primary Status: Acute Comments: resolved. - Discharge Medications Prescriptions: HYDROcodone/Acet 5/325 mg [[place] 5-325 mg] 1 tab PO Q4HR PRN #30 tablet PRN Reason: Moderate Pain Home Medications: Alendronate Sodium [Fosamax] 70 mg PO QWEEK 11/15/15 [History] Aspirin [Adult Low Dose Aspirin EC] 81 mg PO DAILY 11/15/15 [History] Cholecalciferol (Vitamin D3) [Vitamin D3] 1,000 unit PO DAILY 11/15/15 [History] CloNIDine HCl [Clonidine HCl] 0.3 mg PO BID 11/15/15 [History] Furosemide [Lasix] 40 mg PO Q48H 11/15/15 [History] Insulin ASPART [Novolog Flexpen] 15 unit SQ TIDWM 11/15/15 [History] Insulin Glargine,Hum.rec.anlog [Lantus Solostar] 65 unit SQ HS 11/15/15 [History ] Losartan Potassium [Cozaar] 100 mg PO DAILY 11/15/15 [History] Metformin [Glucophage] 1,000 mg PO BIDWM 11/15/15 [History] Metoprolol Tartrate [Lopressor] 50 mg PO BID 11/15/15 [History] Pravastatin Sodium [Pravachol] 80 mg PO HS 11/15/15 [History] Albuterol Sulfate [Albuterol Inhaler] 2 puff IH Q4HR PRN 11/27/15 [History] Ferrous Sulfate 325 mg PO 1500 11/29/16 [History] Hydralazine HCl 100 mg PO TID 11/29/16 [History] [place]-3/Dha/Epa/Fish Oil [Fish Oil 1,000 mg Softgel] 1 each PO 1500 11/29/16 [ History] HYDROcodone/Acet 5/325 mg [[place] 5-325 mg] 1 tab PO Q4HR PRN #30 tablet [Rx] Allergies/Adverse Reactions: Allergies Sulfa (Sulfonamide Antibiotics) Allergy (Verified 11/29/16 09:22) Swelling of Lip/Tongue/Throat Labs on day of discharge: Labs from last 24 hours 12/02/16 12/02/16 12/02/16 07:13 04:07 04:07 WBC 11.7 H RBC 4.34 Hgb 10.4 L Hct 34.8 L MCV 80.2 L MCH 24.0 L MCHC 29.9 L RDW 16.1 H Plt Count 237 MPV 11.2 Immature Gran % 0.5 Seg Neutrophils % 77.9 Lymphocytes % 6.6 Monocytes % 12.6 Eosinophils % 2.1 Basophils % 0.3 Neutrophils # 9.1 H Lymphocytes # 0.8 Monocytes # 1.5 H Eosinophils # 0.3 Basophils # 0.0 Sodium 138 Potassium 4.0 Chloride 108 Carbon Dioxide 20 BUN 24 H Creatinine 1.37 H Est GFR ( Amer) 46 L Est GFR (Non-Af Amer) 38 L BUN/Creatinine Ratio 18 Glucose 167 H POC Glucose 140 H Calculated Osmolality 294 Calcium 8.6 Magnesium 1.6 12/01/16 12/01/16 12/01/16 20:33 16:35 11:42 WBC RBC Hgb Hct MCV MCH MCHC RDW Plt Count MPV Immature Gran % Seg Neutrophils % Lymphocytes % Monocytes % Eosinophils % Basophils % Neutrophils # Lymphocytes # Monocytes # Eosinophils # Basophils # Sodium Potassium Chloride Carbon Dioxide BUN Creatinine Est GFR ( Amer) Est GFR (Non-Af Amer) BUN/Creatinine Ratio Glucose POC Glucose 170 H 140 H 107 H Calculated Osmolality Calcium Magnesium 12/01/16 12/01/16 12/01/16 08:02 08:02 07:38 WBC 18.2 H RBC 4.53 Hgb 10.8 L Hct 36.4 MCV 80.4 L MCH 23.8 L MCHC 29.7 L RDW 16.2 H Plt Count 286 MPV 11.2 Immature Gran % Seg Neutrophils % Lymphocytes % Monocytes % Eosinophils % Basophils % Neutrophils # Lymphocytes # Monocytes # Eosinophils # Basophils # Sodium 137 Potassium 4.1 Chloride 107 Carbon Dioxide 19 BUN 21 H Creatinine 1.38 H Est GFR ( Amer) 45 L Est GFR (Non-Af Amer) 37 L BUN/Creatinine Ratio 15 Glucose 75 POC Glucose 91 H Calculated Osmolality 286 Calcium 8.6 Magnesium Date of admission: 11/29/16 15:59 Primary care physician: Yumiko Villalobos Consults: 11/29/16 16:15 Consult to Hospitalist [CONS] Routine Consulting Provider: Hospitalist [place] Reason for Consult: assist with HTN Call Completed: Yes Discharging clinician: Ori Posada Anticipated date of discharge: 12/02/16 - Patient Status Disposition: Home, Self-Care Condition: Good Functional capacity at discharge: independent ambulation Overall status at discharge: patient is progressing back to baseline - Discharge Instructions Follow Up With: Ping Rich DO [Primary Care Provider] - Ori Posada MD [Partnered Physician] - (2 weeks.) Additional Instructions: OK to shower. no baths. STAY HYDRATED! no heavy lifting or activity 4 weeks. - Diet and Activity Activity: increase activity as tolerated Diet: diabetic diet - Hospital Course Hospital course: Ms. Hitchcock is a 71 year old female POD#3 lap nephrectomy. Cr settled at 1.3. good UO. pain controlled. able to get out of bed unassisted. +flatus. states feeling good - Time Spent with Patient Total time spent providing and/or coordinating discharge services: Exam Initial Vital Signs Temp Pulse Resp BP Pulse Ox 98.8 F 58 18 223/87 93 11/29/16 09:01 11/29/16 09:01 11/29/16 09:01 11/29/16 09:01 11/29/16 09:01 - General physical appearance Present: well developed, no distress - Abdomen Abdomen: Present: soft - VTE Documentation of Mechanical Device: Intermittent pneumatic compression device
[2016-12-02] MEDS: Insulin LISPRO 300 UNITS/3 ML VIAL SQ SCH (07:43)
[2016-12-02] MEDS: cloNIDine HCl 0.1 MG TABLET PO SCH (08:55)
[2016-12-02] MEDS: hydrALAZINE 25 MG TABLET PO SCH (08:55)
== END 2016-12-02 10:10 | disposition home or self-care (01) | DRG 657 ==
LOC: SAMDAY 08:26 → 3ANU 15:59
PROVIDERS: ADMIT Urology; ATTEND Urology

== ENCOUNTER 2017-03-04 06:07 | Inpatient (IN) ==
[2017-03-04] MEDS ORDERED: *HR* Morphine 2 MG/ML SYRINGE IVP PRN (08:34)
[2017-03-04] MEDS ORDERED: Ondansetron 4 MG/2 ML VIAL IVP PRN (08:34)
[2017-03-04] MEDS ORDERED: Naloxone 0.4 MG/ML INJ IVP PRN (08:34)
[2017-03-04] MEDS ORDERED: D5% in Water 1,000 ML IVC PRN (08:45)
[2017-03-04] MEDS ORDERED: Furosemide 40 MG TABLET PO SCH (08:45)
[2017-03-04] MEDS ORDERED: *HR* Dextrose 50 % in Water (Syg) 50 ML SYRINGE IVP PRN (08:45)
[2017-03-04] MEDS ORDERED: Dextrose Gel 15 GM PO PRN ×2 (08:45)
[2017-03-04 09:06] LABS: Basophils # 0.1 K/mcL (0.0-0.2); Basophils % 0.5 %; Eosinophils # 0.1 K/mcL (0.0-0.6); Eosinophils % 1.1 %; Hematocrit 38.6 % (35.3-44.9); Hemoglobin 12.4 g/dL (11.5-15.4); Immature Granulocytes % 0.4 % (0-4); Lymphocytes # 1.1 K/mcL (0.6-4.6); Lymphocytes % 10.2 %; Mean Corpuscular HGB Conc 32.1 g/dL (31.6-35.5); Mean Corpuscular Hemoglobin 26.7 pg (28.0-33.3); Mean Corpuscular Volume 83.2 fL (83.0-100.0); Mean Platelet Volume 11.1 fL (9.4-12.4); Monocytes # 0.8 K/mcL (0.0-1.3); Monocytes % 7.9 %; Neutrophils # 8.4 K/mcL (1.6-8.9); Platelet Count 249 K/mcL (140-400); Red Blood Count 4.64 M/mcL (3.82-4.97); Red Cell Distribution Width 15.4 % (11.5-14.5); Segmented Neutrophils % 79.9 %
[2017-03-04] MEDS: Aspirin Enteric Coated 81 MG Tablet PO SCH (09:16)
[2017-03-04] MEDS: hydrALAZINE 25 MG TABLET PO SCH ×3 (09:16→20:44)
[2017-03-04] MEDS: cloNIDine HCl 0.1 MG TABLET PO SCH ×3 (09:17→20:44)
[2017-03-04] MEDS: Cholecalciferol (D-3) 1,000 UNIT TABLET PO SCH (09:17)
[2017-03-04 09:18] LABS: INR 1.1; Prothrombin Time 11.9 Seconds (9.4-12.1)
[2017-03-04 09:23] LABS: Chol/HDL Ratio 2.9 (0-4.9)
[2017-03-04] MEDS ORDERED: Magnesium Sulfate 2 GM in D5% in Water 100 ML IVPB ONE (09:23)
--- NOTE | 2017-03-04 09:23 | Internal Med History&Physical ---
Date of Encounter: 03/04/17 Time of Encounter: 08:30 Assessment and Plan (1) Hypertensive urgency Current visit: No Status: Acute Hypertensive urgency - slowly improving - currently asymptomatic Wean off nitroglycerin Continue all home medications EKG pending Troponin - 0.06, trend Echocardiogram pending Chest x-ray pending Cardiac telemetry Labs in a.m. (2) CHF (congestive heart failure) Current visit: Yes Status: Chronic Mild exacerbation of chronic CHF, unspecified Continue Lasix Strict I's and O's, fluid restriction, daily weight Continue Losartan and Metoprolol EKG pending Chest x-ray pending BN peptide - 1114 Echocardiogram pending Qualifiers: Congestive heart failure type: unspecified congestive heart failure type Qualified Code(s): I50.9 - Heart failure, unspecified (3) Acute kidney injury superimposed on chronic kidney disease Current visit: Yes Status: Acute Acute kidney injury on CKD stage II - likely due to uncontrolled hypertension and mild CHF Stop Lasix if creatinine worsens Labs in a.m. monitor BUN/creatinine closely (4) Diabetes mellitus Current visit: No Status: Chronic Diabetes mellitus type 2, insulin-dependent, hyperglycemia Glucose checks, continue Levemir and insulin sliding scale Qualifiers: Diabetes mellitus type: type 2 Diabetes mellitus complication status: with hyperglycemia Diabetes mellitus extermination inspector insulin use: with extermination inspector use Qualified Code(s): E11.65 - Type 2 diabetes mellitus with hyperglycemia; Z79.4 - director long term care (current) use of insulin (5) Coronary artery disease Current visit: No Status: Chronic Coronary artery disease status post CABG and stents, stable Continue aspirin and statin Qualifiers: Coronary Disease-Associated Artery/Lesion type: bypass graft [place] vs. transplanted heart: [place] heart Associated angina: without angina Qualified Code(s): I25.810 - Atherosclerosis of coronary artery bypass graft(s) without angina pectoris (6) Hyperlipidemia Current visit: No Status: Chronic Continue statin Qualifiers: Hyperlipidemia type: unspecified Qualified Code(s): E78.5 - Hyperlipidemia , unspecified (7) Asthma Current visit: Yes Status: Acute Stable, not in exacerbation, chronic hypoxia - oxygen use 2 L nasal cannula at night and as needed Continue O2 via nasal cannula, DuoNeb's breathing treatment Qualifiers: Asthma severity: mild intermittent Asthma complication type: uncomplicated Qualified Code(s): J45.20 - Mild intermittent asthma, uncomplicated (8) KATINA (obstructive sleep apnea) Current visit: No Status: Acute Chronic hypoxia, Continue CPAP (9) Obesity (BMI 30-39.9) Current visit: No Status: Chronic Encourage weight loss (10) Multiple malignancies Current visit: Yes Status: Chronic Recent history of right knee soft tissue sarcoma - further evaluation scheduled at [facility] in 1 week (2017) History of colon cancer - status post colectomy with anastomosis (2016) History of renal cell carcinoma - status post left nephrectomy (2016) History of benign left thyroid nodule (11) DVT prophylaxis Current visit: No Status: Acute Continue heparin subcutaneous Internal Medicine - H&P: HPI Chief complaint: Dizziness, uncontrolled hypertension Admitted From: Hospital to Hospital Transfer History of present illness: Ms. Hitchcock is a 71 year old female with past medical history of arthritis, asthma, h/o colon cancer, h/o renal cell carcinoma status post left nephrectomy , CHF, coronary artery disease status post CABG, diabetes, hyperlipidemia, hypertension and anxiety and depression. She presents as a transfer from [facility]. Patient has been transferred in view of hypertensive urgency. On examination patient is awake and alert. Not in any distress. She is able to provide HISTORY. Daughter is at bedside and also provides history. Patient states she woke up early this morning to use bathroom and she felt dizzy and lightheaded. She checked her blood pressure and it was elevated. She decided to go to the ED. Symptoms resolved soon afterward. Initial evaluation at [facility] revealed accelerated hypertension and patient was started on IV nitroglycerin. Troponin was SLIGHTLY elevated. Patient was then transferred here. At present patient states she feels better. Denies chest pain, denies shortness of breath, denies palpitations. Denies headache or dizziness. No abdominal pain or vomiting or diarrhea. No aggravating or alleviating factors. Patient states her blood pressure usually runs high and she follows up regularly with her field cashier. Patient had a recent excision of a soft tissue sarcoma and the daughter mentions that patient is scheduled to follow-up at [facility] for further evaluation. Patient has no other acute complaints. No other associated symptoms. Patient is being admitted for hypertensive urgency. We will continue all her by mouth medications and wean her off the IV medications at this time. Patient and daughter have been explained about her condition and plan of care. Understood and agreed. No unanswered questions. CODE STATUS full code. Past Med Surg Social Fam HX - Past Medical History Medical history: diabetes, myocardial infarction, hyperlipidemia, arthritis, hypertension, asthma, coronary artery disease, cancer, CHF Psychiatric history: anxiety, depression - Past Surgical History Surgical History: angioplasty/stent, cholecystectomy, colectomy (For colon cancer), coronary bypass (CABG), other (Left nephrectomy for renal cell carcinoma, soft tissue sarcoma excision recently) - Social History Smoking Status: Never smoker Smokeless Tobacco Status: No Alcohol use: none Drug use: none - Family History Mother Name: trudi Family Member Ethnicity: Non- Living Status: Age at : 86 Cause of : cancer Hx Family Cardiac Disorders: No Hx Family Respiratory Disorders: No Hx Family Cancer: Yes (rectal Ca) Hx Family GI Disorders: No Hx Family Endocrine Disorder: No Hx Family Neuromuscular Disorders: No Hx Family Neurologic Disorders: No Hx Family HEENT Disorders: No Hx Family Autoimmune Disorders: No Internal Medicine - H&P: Meds Aspirin [Adult Low Dose Aspirin EC] 81 mg PO DAILY 11/15/15 [History] Cholecalciferol (Vitamin D3) [Vitamin D3] 1,000 unit PO DAILY 11/15/15 [History] Furosemide [Lasix] 40 mg PO Q48H 11/15/15 [History] Insulin ASPART [Novolog Flexpen] 15 unit SQ TIDWM 11/15/15 [History] Insulin Glargine,Hum.rec.anlog [Lantus Solostar] 65 unit SQ HS 11/15/15 [History ] Losartan Potassium [Cozaar] 100 mg PO DAILY 11/15/15 [History] Metoprolol Tartrate [Lopressor] 50 mg PO BID 11/15/15 [History] Pravastatin Sodium [Pravachol] 80 mg PO HS 11/15/15 [History] Ferrous Sulfate 325 mg PO 1500 11/29/16 [History] Hydralazine HCl 100 mg PO TID 11/29/16 [History] [place]-3/Dha/Epa/Fish Oil [Fish Oil 1,000 mg Softgel] 1 each PO 1500 11/29/16 [ History] HYDROcodone/Acet 5/325 mg [[place] 5-325 mg] 1 tab PO Q4H PRN #20 tablet 01/18/17 [Rx] cloNIDine HCl [Clonidine HCl] 0.2 mg PO TID 02/03/17 [History] Allergies Sulfa (Sulfonamide Antibiotics) Allergy (Verified 02/03/17 17:25) Swelling of Lip/Tongue/Throat All Systems PM: A 10-system review of systems was performed and is negative for pertinent findings except as documented above in the HPI. - Constitutional Constitutional: fatigue, weakness, no fever(s) - EENT Eyes: no blurry vision - Cardiovascular Cardiovascular ROS IM: no chest pain, no diaphoresis, no dyspnea, no dyspnea on exertion, no lightheadedness, no orthopnea, no syncope - Respiratory Respiratory: no cough, no dyspnea, no hemoptysis, no dyspnea on exertion, no chest congestion - Gastrointestinal Gastrointestinal: no abdominal pain, no bloating, no cramping, no diarrhea, no loose stools, no melena, no vomiting - Genitourinary Genitourinary: no dysuria - Neurological Neurological ROS: no abnormal gait, no abnormal speech, no dizziness, no numbness, no tingling - Constitutional Vitals: Temp Pulse Resp BP Pulse Ox 98.5 F 64 18 176/67 92 03/04/17 07:45 03/04/17 07:45 03/04/17 07:45 03/04/17 07:45 03/04/17 07:45 General appearance: Present: A&O X 3, pleasant, no acute distress, obese, answers questions appropriately - Head Head exam: Present: atraumatic - Eye Eye exam: Present: EOMI - Neck Neck exam general surgery: Present: supple - Respiratory Respiratory exam: Present: CTAB. Absent: rales, rhonchi, wheezes - Cardiovascular Cardiovascular exam: Present: RRR, +S1, +S2 - GI/Abdominal GI/Abdominal exam: Present: soft, no peritoneal signs. Absent: distended, firm , guarding, rebound, rigid, tenderness - Extremities Exam Extremities exam: Present: pedal edema (Bilateral pitting 3+ ). Absent: cyanotic, tenderness - Neurological Exam Neurological exam: Present: alert, oriented X3, no focal deficits Internal Med - H&P Results - Labs CBC & Chem 7: 03/04/17 08:52 03/04/17 08:52 Labs: Short CBC 03/04/17 Range/Units 08:52 WBC 10.5 (4.3-11.1) K/mcL Hgb 12.4 (11.5-15.4) g/dL Hct 38.6 (35.3-44.9) % Plt Count 249 (140-400) K/mcL Neutrophils # 8.4 (1.6-8.9) K/mcL
[2017-03-04 09:24] LABS: Albumin 3.1 g/dL (3.5-5.0); Albumin/Globulin Ratio 0.8 (1.1-2.2); Bilirubin,Total 0.6 mg/dL (0.2-1.2); Calcium 9.4 mg/dL (8.6-10.8); Globulin 3.7 g/dL (2.4-3.5); Potassium 3.8 mEq/L (3.5-4.5); Total Protein 6.8 g/dL (6.0-8.3)
[2017-03-04] MEDS ORDERED: Furosemide 40 MG/4 ML VIAL IVP SCH (10:15)
[2017-03-04] MEDS: Insulin LISPRO 300 UNITS/3 ML VIAL SQ SCH ×2 (12:31→17:00)
[2017-03-04] MEDS: Ipratropium/Albuterol Neb 3 ML IH SCH ×2 (15:27→21:55)
[2017-03-04] MEDS: *HR* Heparin 5,000 UNIT/ML VIAL SQ SCH (17:01)
[2017-03-04] MEDS: Famotidine 20 MG/2 ML VIAL IVP SCH (17:03)
[2017-03-04] MEDS ORDERED: Insulin DETEMIR 100 UNIT/ML X5UNITS SQ SCH (21:00)
[2017-03-05 03:09] LABS: Basophils % 0.4 %; Eosinophils # 0.2 K/mcL (0.0-0.6); Eosinophils % 1.4 %; Hematocrit 35.5 % (35.3-44.9); Hemoglobin 11.2 g/dL (11.5-15.4); Immature Granulocytes % 0.7 % (0-4); Immature Platelets 5.3 % (1.1-6.1); Lymphocytes # 1.4 K/mcL (0.6-4.6); Lymphocytes % 13.6 %; Mean Corpuscular HGB Conc 31.5 g/dL (31.6-35.5); Mean Corpuscular Volume 85.5 fL (83.0-100.0); Mean Platelet Volume 11.7 fL (9.4-12.4); Monocytes # 1.1 K/mcL (0.0-1.3); Monocytes % 10.6 %; Neutrophils # 7.6 K/mcL (1.6-8.9); Platelet Count 226 K/mcL (140-400); Red Blood Count 4.15 M/mcL (3.82-4.97); Red Cell Distribution Width 15.4 % (11.5-14.5); Segmented Neutrophils % 73.3 %
[2017-03-05 03:31] LABS: Albumin 2.7 g/dL (3.5-5.0); Albumin/Globulin Ratio 0.8 (1.1-2.2); Bilirubin,Total 0.3 mg/dL (0.2-1.2); Globulin 3.4 g/dL (2.4-3.5); Potassium 3.8 mEq/L (3.5-4.5); Total Protein 6.1 g/dL (6.0-8.3)
[2017-03-05] MEDS: Ipratropium/Albuterol Neb 3 ML IH SCH ×2 (04:01→09:49)
[2017-03-05] MEDS: *HR* Heparin 5,000 UNIT/ML VIAL SQ SCH (05:25)
[2017-03-05] MEDS: Famotidine 20 MG/2 ML VIAL IVP SCH (05:26)
[2017-03-05] MEDS: cloNIDine HCl 0.1 MG TABLET PO SCH (09:02)
[2017-03-05] MEDS: Insulin LISPRO 300 UNITS/3 ML VIAL SQ SCH ×2 (09:02→12:35)
[2017-03-05] MEDS: Aspirin Enteric Coated 81 MG Tablet PO SCH (09:02)
[2017-03-05] MEDS: hydrALAZINE 25 MG TABLET PO SCH ×2 (09:03→14:57)
[2017-03-05] MEDS: Cholecalciferol (D-3) 1,000 UNIT TABLET PO SCH (09:03)
[2017-03-05 11:34] VITALS: BP 155/54
--- NOTE | 2017-03-05 12:29 | Discharge Summary ---
Date of Encounter: 03/05/17 Time of Encounter: 12:00 - Discharge Diagnosis (1) Hypertensive urgency Priority: Primary Status: Acute (2) CKD (chronic kidney disease) stage 3, GFR 30-59 ml/min Priority: Secondary Status: Chronic (3) CHF (congestive heart failure) Priority: Secondary Status: Chronic Qualifiers: Congestive heart failure type: diastolic Congestive heart failure chronicity: acute on chronic Qualified Code(s): I50.33 - Acute on chronic diastolic (congestive) heart failure (4) Asthma Priority: Secondary Status: Acute Qualifiers: Asthma severity: mild intermittent Asthma complication type: uncomplicated Qualified Code(s): J45.20 - Mild intermittent asthma, uncomplicated (5) Diabetes mellitus Priority: Secondary Status: Chronic Qualifiers: Diabetes mellitus type: type 2 Diabetes mellitus complication status: with hyperglycemia Diabetes mellitus superintendent container terminal insulin use: with superintendent container terminal use Qualified Code(s): E11.65 - Type 2 diabetes mellitus with hyperglycemia; Z79.4 - halfway (current) use of insulin (6) Hyperlipidemia Priority: Secondary Status: Chronic Qualifiers: Hyperlipidemia type: mixed hyperlipidemia Qualified Code(s): E78.2 - Mixed hyperlipidemia (7) Multiple malignancies Priority: Secondary Status: Chronic (8) Obesity (BMI 30-39.9) Priority: Secondary Status: Chronic (9) KATINA (obstructive sleep apnea) Priority: Secondary Status: Acute - Discharge Medications Prescriptions: cloNIDine HCl [Clonidine HCl] 0.3 mg PO TID #90 tab Furosemide [Lasix] 20 mg PO DAILY #30 tablet Home Medications: Aspirin [Adult Low Dose Aspirin EC] 81 mg PO DAILY 11/15/15 [History] Cholecalciferol (Vitamin D3) [Vitamin D3] 1,000 unit PO DAILY 11/15/15 [History] Insulin ASPART [Novolog Flexpen] 15 unit SQ TIDWM 11/15/15 [History] Insulin Glargine,Hum.rec.anlog [Lantus Solostar] 65 unit SQ HS 11/15/15 [History ] Losartan Potassium [Cozaar] 100 mg PO DAILY 11/15/15 [History] Metoprolol Tartrate [Lopressor] 50 mg PO BID 11/15/15 [History] Pravastatin Sodium [Pravachol] 80 mg PO HS 11/15/15 [History] Ferrous Sulfate 325 mg PO DAILY 11/29/16 [History] Hydralazine HCl 100 mg PO TID 11/29/16 [History] [place]-3/Dha/Epa/Fish Oil [Fish Oil 1,000 mg Softgel] 1 cap PO DAILY 11/29/16 [ History] HYDROcodone/Acet 5/325 mg [[place] 5-325 mg] 1 tab PO Q4H PRN #20 tablet 01/18/17 [Rx] Furosemide [Lasix] 20 mg PO DAILY #30 tablet 03/05/17 [Rx] cloNIDine HCl [Clonidine HCl] 0.3 mg PO TID #90 tab 03/05/17 [Rx] Allergies/Adverse Reactions: Allergies Sulfa (Sulfonamide Antibiotics) Allergy (Verified 02/03/17 17:25) Swelling of Lip/Tongue/Throat Procedures/tests Complete & Pending: Procedures Performed prior 72 hours Category Date Time Status ECG 12 lead ECG [ECG] Stat Y 03/04/17 08:34 Ordered EV echocardiogram Routine Y 03/04/17 08:39 Completed Date of admission: 03/04/17 08:34 Primary care physician: Geremias Ryan DO Consults: 03/04/17 08:37 Consult to Physical Therapy [CONS] Routine Comment: Evaluate, develop and implement POC Reason for Consult: pt eval Consult to Director Of User Experience [CONS] Routine Reason for SW Consult: d/c planning 03/05/17 09:47 Consult to Nephrology [CONS] Routine Consulting Provider: Kidney Es/JADA/JUVENCIO/SKYE Reason for Consult: ROBERT on CKD Call Completed: Yes Discharging clinician: Domingo Altman Anticipated date of discharge: 03/05/17 - Patient Status Disposition: Home, Self-Care Condition: Good Functional capacity at discharge: independent ambulation Overall status at discharge: patient is progressing back to baseline - Discharge Instructions Instructions: Clonidine (By mouth), Furosemide (By mouth), Heart Failure (DC), Acute Kidney Injury (DC), Acute Kidney Injury (GEN), Diabetes Mellitus Type 2 in Adults (DC), Chronic Hypertension (DC), Anemia (GEN) Follow Up With: Geremias Ryan DO [Primary Care Provider] - (in 1-2 weeks) Additional Instructions: With Dr. Brown in 1-2 weeks - Diet and Activity Activity: resume usual activities as tolerated Diet: diabetic diet, low fat, low cholesterol, low salt diet, other (fluid restriction to 1.5 L /24 hrs) Hospital course: Ms. Hitchcock is a 71 year old female patient with a history of essential hypertension, coronary artery disease, chronic kidney disease, renal cancer status post left nephrectomy, colectomy for colon cancer who presented to the ER with complaints of dizziness and lightheadedness and was found to be having severely elevated blood pressure. Patient is on metoprolol and clonidine at home for her hypertension in addition to losartan. Patient was hospitalized and her blood pressure was monitored closely. She was also having some pedal edema and was diagnosed with possible congestive heart failure. She was treated with Lasix. A 2-D echocardiogram showed some diastolic dysfunction. Her blood pressure has improved since then and she is feeling much better. Her renal function did worsen today and nephrology was consulted. Patient appears to be having chronic kidney disease stage III and with her history of left nephrectomy, her rising creatinine is expected with the use of Lasix. However nephrology does recommend to continue using Lasix at a lower dose of 20 mg per daily. Patient was on 40 mg every 48 hours at home. Currently her blood pressure is much better controlled and patient is stable to be discharged. Nephrology also recommends increasing her Cardizem dosage to 0.3 mg 3 times daily. Patient will be discharged on this new antihypertensive regimen. 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 - Time Spent with Patient Total time spent providing and/or coordinating discharge services: Less than 30 minutes (25 min) - Constitutional Vitals: Temp Pulse Resp BP Pulse Ox 98.1 F 58 18 155/54 97 03/05/17 11:29 03/05/17 11:29 03/05/17 11:29 03/05/17 11:29 03/05/17 11:29 General appearance: Present: A&O X 3, pleasant, no acute distress, obese, answers questions appropriately - Respiratory Respiratory exam: Present: CTAB. Absent: accessory muscle use, rales, rhonchi, wheezes - Cardiovascular Cardiovascular exam: Present: RRR, +S1, +S2. Absent: diastolic murmur, gallop, rubs, systolic murmur - GI/Abdominal GI/Abdominal exam: Present: normal bowel sounds, soft, no peritoneal signs. Absent: distended, tenderness - Extremities Exam Extremities exam: Present: pedal edema, warm, radial pulses palpable and symetrical. Absent: calf tenderness, cyanotic
--- NOTE | 2017-03-05 12:33 | Nephrology Consult Note ---
Date of Encounter: 03/05/17 Time of Encounter: 10:35 Assessment and Plan (1) Acute kidney injury superimposed on chronic kidney disease Status: Acute Non-oliguric ROBERT on CKD stage III likely from the diuretics (this this was to be expected since she was so edematous). The BPs improving so nicely may have played hemodynamic roll in the ROBERT as well. HTN/Volume status: definitely these to issues are intertwined. She should remain on a low dose lasix to help improve her volume status, which will better control her BPs. It will be expected to see an increase in the azotemia (i.e. an slightly higher SCr and lower eGFR), but if her BPs are better controlled the benefits should out weight the risks. I recommend she have a BMP checked in about 1 week after discharge to ensure that her SCr does not worsen too much and to monitor the serum K+ and serum CO2 levels. I spent >50% of my time with her (about 35 min) counseling her about swelling, BP control, reduced sodium diet, fluid restriction of about 2L per day or less and how to focus on a renal protective strategy. I've asked my clinic team to help contact her to arrange a sooner follow up appt in my nephrology clinic. Thank you for consulting the [facility] group. Discussed with the hospitalist. (2) Hypertensive urgency Status: Acute Increased Clonidine to 0.3mg po tid. Monitor HR. Added lasix 20mg po daily. Will need new scripts at discharge. Discussed with the hospitalist. (3) Edema Status: Acute See above Qualifiers: Edema type: generalized Qualified Code(s): R60.1 - Generalized edema (4) Acute blood loss anemia Status: Acute Hx of anemia. Goal Hgb is 10-11 in the setting of CKD. Will monitor. (5) Status post nephrectomy Status: Chronic Contributing to her CKD plus hx of DM, HTN, obesity, edema. (6) CKD (chronic kidney disease) stage 3, GFR 30-59 ml/min Status: Chronic She may drop to stage IV CKD on diuretics: see above. History of Present Illness - Reason for Consult Consult date: 03/05/17 Acute Kidney Injury, accelerated hypertension Requesting physician: Domingo Altman - Chief Complaint HTN, ROBERT on CKD - History of Present Illness Katie Escudero is a very pleasant 71 y/o obese WF with a pmh of T2DM, HTN, RCC s/p left nephrectomy a few months ago and development of CKD (she was just recently referred to me last month for establishment) who presented with shortness of breath, elevated BPs. Nephrology was consulted because she was also found to have an ROBERT s/p IV lasix overnight. She reported that over the last 1-2 weeks, she has noticed more and more swelling of her feet/ankles. Her BPs have been rising as well. She denied use of OTC NSAIDs, but affirmed that she has occasionally been eating fast food. She received lasix last night and her BPs actually responded and easily lowered. She reported that she never misses any dosing ov Clonidine. She did not affirm N/V/D or dysuria. The hospitalist and the patient were hoping/expecting to discharge today, and asked that I help schedule a close follow up appt with the pt. Past Med Surg Social Fam HX - Past Medical History Medical history: diabetes, myocardial infarction, hyperlipidemia, arthritis, hypertension, asthma, coronary artery disease, cancer, CHF Psychiatric history: anxiety, depression - Past Surgical History Surgical History: angioplasty/stent, cholecystectomy, colectomy (For colon cancer), coronary bypass (CABG), other (Left nephrectomy for renal cell carcinoma, soft tissue sarcoma excision recently) - Social History Smoking Status: Never smoker Smokeless Tobacco Status: No Alcohol use: none Drug use: none - Family History Mother Name: trudi Family Member Ethnicity: Non- Living Status: Age at : 86 Cause of : cancer Hx Family Cardiac Disorders: No Hx Family Respiratory Disorders: No Hx Family Cancer: Yes (rectal Ca) Hx Family GI Disorders: No Hx Family Endocrine Disorder: No Hx Family Neuromuscular Disorders: No Hx Family Neurologic Disorders: No Hx Family HEENT Disorders: No Hx Family Autoimmune Disorders: No Medications and Allergies Aspirin [Adult Low Dose Aspirin EC] 81 mg PO DAILY 11/15/15 [History] Cholecalciferol (Vitamin D3) [Vitamin D3] 1,000 unit PO DAILY 11/15/15 [History] Insulin ASPART [Novolog Flexpen] 15 unit SQ TIDWM 11/15/15 [History] Insulin Glargine,Hum.rec.anlog [Lantus Solostar] 65 unit SQ HS 11/15/15 [History ] Losartan Potassium [Cozaar] 100 mg PO DAILY 11/15/15 [History] Metoprolol Tartrate [Lopressor] 50 mg PO BID 11/15/15 [History] Pravastatin Sodium [Pravachol] 80 mg PO HS 11/15/15 [History] Ferrous Sulfate 325 mg PO DAILY 11/29/16 [History] Hydralazine HCl 100 mg PO TID 11/29/16 [History] [place]-3/Dha/Epa/Fish Oil [Fish Oil 1,000 mg Softgel] 1 cap PO DAILY 11/29/16 [ History] HYDROcodone/Acet 5/325 mg [[place] 5-325 mg] 1 tab PO Q4H PRN #20 tablet 01/18/17 [Rx] Furosemide [Lasix] 20 mg PO DAILY #30 tablet 03/05/17 [Rx] cloNIDine HCl [Clonidine HCl] 0.3 mg PO TID #90 tab 03/05/17 [Rx] Allergies Sulfa (Sulfonamide Antibiotics) Allergy (Verified 02/03/17 17:25) Swelling of Lip/Tongue/Throat Review of Systems All Systems: reviewed and no additional remarkable complaints except as stated Exam - Vital Signs Vital signs: Initial Vital Signs Temp Pulse Resp BP Pulse Ox 98.5 F 64 18 176/67 92 03/04/17 07:45 03/04/17 07:45 03/04/17 07:45 03/04/17 07:45 03/04/17 07:45 Vital Signs - Last 8 Hours Temp Pulse Resp BP Pulse Ox 03/05/17 11:29 98.1 F 58 18 155/54 97 03/05/17 09:49 18 98 03/05/17 07:23 98.3 F 110 18 149/68 97 Intake and Output 03/04/17 03/05/17 03/05/17 23:59 07:59 15:59 Intake Total 0 / 0 480 / 480 Output Total 700 / 700 Balance -700 / -700 480 / 480 Intake: Oral 0 / 0 480 / 480 Output: Urine 700 / 700 Other: Meal Breakfast Percent of Meal Consumed 100% # Voids 1 # Bowel Movements 1 Blood Glucose* 290 130 307 - General Appearance General appearance: well-developed, well-nourished, appears started age, obese EENT: ATNC, PERRL, mucous membranes moist Neck: supple Respiratory: clear Cardiology: edema (1-2+ pretibial pitting edema bilaterally ), regular rate, regular rhythm, normal S1, normal S2 Gastrointestinal: normoactive bowel sounds, no tenderness Integumentary: no rash, warm and dry Neurologic: no focal deficit, no asterixis, alert and oriented x3 Musculoskeletal: no deformities, no erythema, no cyanosis Psychiatric: mood/affect appropriate, cooperative Results - Lab Results 03/05/17 02:50 03/05/17 02:50 Most recent lab results Calcium 9.0 mg/dL (8.6-10.8) 03/05/17 02:50 Magnesium 1.5 mg/dL (1.6-2.6) L 03/04/17 08:52 I reviewed the above auto-generated data cast including outside/clinic progress notes, hospital notes, labs, meds, vitals and imaging. Consult Discharge Plan - Plan Instructions: Clonidine (By mouth), Furosemide (By mouth), Heart Failure (DC), Asthma (DC), Acute Kidney Injury (DC), Acute Kidney Injury (GEN), Cellulitis (DC ), Diabetes Mellitus Type 2 in Adults (DC), Chronic Hypertension (DC), Anemia ( GEN) Additional Instructions: With Dr. Brown in 1-2 weeks Referrals: Geremias Ryan DO [Primary Care Provider] - (in 1-2 weeks) Prescriptions: cloNIDine HCl [Clonidine HCl] 0.3 mg PO TID #90 tab Furosemide [Lasix] 20 mg PO DAILY #30 tablet
[2017-03-05] MEDS ORDERED: cloNIDine HCl 0.1 MG TABLET PO SCH (13:12)
[2017-03-05] MEDS ORDERED: Furosemide 20 MG TABLET PO PRN (13:12)
--- NOTE | 2017-03-06 10:43 | Electrocardiograph Report ---
[place] [id number] Test Date: 2017-03-04 Pat Name: Katie Hitchcock Department: 111 Room: 2NE31 Gender: F Anesthesia Technician: SUN : 1945 Requested By: Juan Jose Wilhelm Order Number: [id number] Reading MD: Josh Malik MD Measurements Intervals [place] Rate: 49 P: 64 [place]: 214 QRS: 1 QRSD: 120 T: 224 QT: 499 QTc: 470 Interpretive Statements SINUS BRADYCARDIA WITH FIRST DEGREE AV BLOCK RIGHT BUNDLE BRANCH BLOCK LEFT VENTRICULAR HYPERTROPHY AND ST-T CHANGE Electronically Signed On 03-06-2017 10:42:22 EDT by Josh Malik MD
== END 2017-03-05 15:58 | disposition home or self-care (01) | DRG 304 ==
LOC: 2NENU
PROVIDERS: ADMIT Internal Medicine Endocrinology, Diabetes & Metabolism; ATTEND Internal Medicine

== ENCOUNTER 2017-08-08 14:44 | Inpatient (IN) ==
--- NOTE | 2017-08-08 15:03 | Emergency Department Note ---
Disposition Clinical Impression: Pleural effusion on left, Elevated troponin I level, Acute exacerbation of chronic obstructive pulmonary disease (COPD) CAP (community acquired pneumonia) Qualifiers: Laterality: left Lung location: unspecified part of lung Qualified Code(s): J18.9 - Pneumonia, unspecified organism Disposition: Admitted As Inpatient Condition: Fair SOB HPI - General Chief Complaint: ED Shortness of Breath/Dyspnea Stated Complaint: simone/sob Time Seen by Provider: 08/08/17 14:51 Source: patient Mode of arrival: EMS Limitations: no limitations Nursing Notes Reviewed: Yes Vital Signs Reviewed: Yes - History of Present Illness 71-year-old female presents by EMS for shortness of breath, history of colorectal cancer, nephrectomy, renal cancer, shortness of breath normally on oxygen 2 L, requiring more in route, has had cough and wheezes as well. Patient states that she has had worsening productive cough for the last few days. She is previously been seen by oncology yesterday outpatient and has not been admitted for a few months. Eyes hemoptysis, she has intermittent chest pain with deep inspiration 4 out of 10 for several days Pt Subjective Complaint: shortness of breath Onset (ago): day(s) Severity: moderate Consistency/Duration: intermittent Improves with: oxygen Worsens with: nothing Known history of: COPD, congestive heart failure Associated symptoms: Reports: chest pain, fever, cough, wheezing, sputum production. Denies: pain with inspiration - Related Data Home Medications Medication Instructions Recorded Confirmed Aspirin [Adult Low Dose Aspirin EC] 81 mg PO DAILY 11/15/15 08/08/17 Insulin ASPART [Novolog Flexpen] 15 unit SQ TIDWM 11/15/15 08/08/17 Insulin Glargine,Hum.rec.anlog 50 unit SQ HS 11/15/15 08/08/17 [Lantus Solostar] Metoprolol Tartrate [Lopressor] 50 mg PO BID 11/15/15 08/08/17 Ferrous Sulfate 325 mg PO DAILY 11/29/16 08/08/17 Hydralazine HCl 100 mg PO TID 11/29/16 08/08/17 Otto-3/Dha/Epa/Fish Oil [Fish Oil 1 cap PO DAILY 11/29/16 08/08/17 1,000 mg Softgel] ALPRAZolam [Xanax 0.5 MG Tablet] 0.5 mg PO BID PRN 08/08/17 08/08/17 Apixaban [Eliquis] 2.5 mg PO BID 08/08/17 08/08/17 Carvedilol 12.5 mg PO BID 08/08/17 08/08/17 Pravastatin Sodium [Pravachol] 80 mg PO QPM 08/08/17 08/08/17 Previous Rx's Medication Instructions Recorded cloNIDine HCl [Clonidine HCl] 0.3 mg PO TID #90 tab 03/05/17 Albuterol Sulfate [Proair Hfa] 1 puff IH Q4H PRN #1 inh 05/11/17 Furosemide [Lasix] 40 mg PO DAILY #7 tablet 08/07/17 Potassium Bicarbonate/Cit AC 25 meq PO DAILY #7 tablet.eff 08/07/17 [Potassium 25 Meq Tablet Eff] Allergies Allergy/AdvReac Type Severity Reaction Status Date / Time Sulfa (Sulfonamide Allergy Swelling Verified 08/08/17 14:45 Antibiotics) of Lip/Tongue/Throat All systems ED: reviewed and negative except as stated. Review of Systems: As Per HPI Constitutional: Reports: fever, chills Eyes: Denies: eye pain ENT ED: Denies: ear pain Cardiovascular: Reports: chest pain, palpitations Respiratory: Reports: as per HPI, dyspnea, wheezes. Denies: cough Gastrointestinal: Denies: abdominal pain, nausea, vomiting Genitourinary: Denies: urgency Musculoskeletal: Denies: back pain Integumentary: Denies: rash Past Medical History - Past Medical History Attestation: Yes The following information was validated with the patient. 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 - Social History Smoking Status: Never smoker Smokeless Tobacco Status: No Alcohol use: Reports: none Drug use: Reports: none Physical Exam Constitutional: tachycardic irregular rhythm hypoxic on 3 L sob mild resp distress Eyes: PERRLA, sclera anicteric ENT & Mouth: MMM Neck: normal inspection, neck is supple Resp:coarse inspiratory and expiratory wheezes rhonchi at the bases CV: irRegularly irregular, no m/g/r GI: normal inspection, soft, no guarding or rigidity Neuro: A&O3, CNII-XII grossly intact, VELAZQUEZ Skin: on limited exam, skin intact with no rashes or lesions - General Limitations: no limitations General appearance: alert Course Course Narrative: 71yo female with shortness of breath, bilateral wheezes, appears in moderate distress placed on 3 L, chest pain workup ordered and addition, she is a high risk given active cancer and shortness of breath for pulmonary embolus, and IUs per Citra's criteria and therefore we will get a VQ scan as she has post nephrectomy - Reevaluation(s) Reevaluation #1: Chest pain workup remarkable for troponin of 0.07, atrial fibrillation 110, I did discuss that the VQ scan results are not back but would like to admit the patient, she is already anticoagulated on Eliquis, the hospitalist Dr. Altman will follow up on the VQ scan results patient is given aspirin, improved somewhat after DuoNeb some breathing treatments, plan is for admission for pneumonia, COPD exacerbation elevated troponin Vital Signs Temperature 98 F 08/08/17 14:45 Pulse Rate 88 08/08/17 14:45 Respiratory Rate 26 08/08/17 14:45 Blood Pressure 183/91 08/08/17 14:45 O2 Sat by Pulse Oximetry 80 08/08/17 14:45 Temperature 98 F 08/08/17 14:45 Pulse Rate 88 08/08/17 14:45 Respiratory Rate 20 08/08/17 15:31 Blood Pressure 183/91 08/08/17 14:45 O2 Sat by Pulse Oximetry 100 08/08/17 15:31 Oxygen Delivery Oxygen Delivery Nasal Cannula Shortness of Breath/Dyspnea - Differential Diagnosis Likely: acute exacerbation of chronic obstructive airways disease, congestive heart failure, pneumonia - Medical Records Medical records reviewed: Yes I reviewed the patient's medical records. - Lab Data Lab results reviewed: Yes I reviewed the patient's lab results. Result diagrams: 08/08/17 15:45 08/08/17 15:45 Lab Results 08/08/17 08/08/17 08/08/17 Range/Units 15:45 15:45 15:45 WBC 13.5 H (4.3-11.1) K/mcL RBC 4.18 (3.82-4.97) M/mcL Hgb 10.8 L (11.5-15.4) g/dL Hct 34.8 L (35.3-44.9) % MCV 83.3 (83.0-100.0) fL MCH 25.8 L (28.0-33.3) pg MCHC 31.0 L (31.6-35.5) g/dL RDW 17.2 H (11.5-14.5) % Plt Count 279 (140-400) K/mcL MPV 11.0 (9.4-12.4) fL Immature Gran % 0.7 (0-4) % Seg Neutrophils % 82.0 % Lymphocytes % 5.2 % Monocytes % 11.4 % Eosinophils % 0.3 % Basophils % 0.4 % Neutrophils # 11.0 H (1.6-8.9) K/mcL Lymphocytes # 0.7 (0.6-4.6) K/mcL Monocytes # 1.5 H (0.0-1.3) K/mcL Eosinophils # 0.0 (0.0-0.6) K/mcL Basophils # 0.1 (0.0-0.2) K/mcL Sodium 129 L (136-145) mEq/L Potassium 4.9 H (3.5-4.5) mEq/L Chloride 99 (98-109) mEq/L Carbon Dioxide 19 (19-29) mEq/L BUN 33 H (7-20) mg/dL Creatinine 1.53 H (0.57-1.11) mg/dL Est GFR ( Amer) 40 L (> 60) Est GFR (Non-Af Amer) 33 L (> 60) BUN/Creatinine Ratio 22 (6-26) Glucose 292 H (70-99) mg/dL Calculated Osmolality 286 (280-300) Lactic Acid 1.2 (0.5-2.2) mmol/L Calcium 8.6 (8.6-10.8) mg/dL Troponin I (0-0.03) ng/mL B-Natriuretic Peptide (0-100) pg/mL 08/08/17 08/08/17 Range/Units 15:45 15:45 WBC (4.3-11.1) K/mcL RBC (3.82-4.97) M/mcL Hgb (11.5-15.4) g/dL Hct (35.3-44.9) % MCV (83.0-100.0) fL MCH (28.0-33.3) pg MCHC (31.6-35.5) g/dL RDW (11.5-14.5) % Plt Count (140-400) K/mcL MPV (9.4-12.4) fL Immature Gran % (0-4) % Seg Neutrophils % % Lymphocytes % % Monocytes % % Eosinophils % % Basophils % % Neutrophils # (1.6-8.9) K/mcL Lymphocytes # (0.6-4.6) K/mcL Monocytes # (0.0-1.3) K/mcL Eosinophils # (0.0-0.6) K/mcL Basophils # (0.0-0.2) K/mcL Sodium (136-145) mEq/L Potassium (3.5-4.5) mEq/L Chloride (98-109) mEq/L Carbon Dioxide (19-29) mEq/L BUN (7-20) mg/dL Creatinine (0.57-1.11) mg/dL Est GFR ( Amer) (> 60) Est GFR (Non-Af Amer) (> 60) BUN/Creatinine Ratio (6-26) Glucose (70-99) mg/dL Calculated Osmolality (280-300) Lactic Acid (0.5-2.2) mmol/L Calcium (8.6-10.8) mg/dL Troponin I 0.07 H* (0-0.03) ng/mL B-Natriuretic Peptide 853 H (0-100) pg/mL - Radiology Data Radiology results reviewed: Yes I reviewed the patient's radiology results. Chest X-Ray 08/08/17 14:54 IMPRESSION: 1. Small right pleural effusion with hazy opacity within the right lung base, with differential considerations including atelectasis, pneumonia, asymmetric edema, or aspiration. 2. Stable cardiomegaly. D/ / 08/08/2017 16:09:15 Silvestre Lara MD / lizz Interpreting Provider: Silvestre T. Danneman, MD - EKG Data EKG attestation: Yes I reviewed and interpreted this EKG. Rhythm: Reports: A.Luis Alberto (1 12 bpm QRS [address] segment changes with depressions in V5 V6 lateral precordial leads and lead 2. Not much change from previous EKG February 2017) Interpretation: Reports: nonspecific ST-T wave changes - Core Measures AMI Core Measures Followed: Yes Attestation Statement - Attestation Attestation: I, Milton Victor, examined this patient and my medical decision-making was reviewed with the VEST MAKER/PA/Advanced Practice Nurse/Resident Physician. I agree with the documented findings, disposition and treatment plan as described except to the extent set forth below. 71-year-old female presents emergency Department with increasing shortness of breath. Patient states her symptoms have been worsening over the past few days. Patient denies chest pain although she has significant dyspnea with exertion. Patient denies diaphoresis, palpitations. Patient denies a history of COPD or asthma however she does have multiple episodes of acute bronchitis in the past. Patient recently diagnosed with atrial fibrillation and is currently taking Eliquis. Denies missing any doses of her medications. Patient has a history of renal cell carcinoma and has history of nephrectomy. We will obtain a VQ scan for evaluation of possible PE. Patient will otherwise be treated for community acquired pneumonia as patient has leukocytosis and possible pneumonia on chest x-ray. Patient comfortable with the plan for admission to the hospital. Patient does have elevated troponin at 0.07. Patient given aspirin but will not be started on heparin as this is likely secondary to ischemic demand.
[2017-08-08] MEDS ORDERED: Ipratropium/Albuterol Neb 3 ML IH ONE (15:06)
[2017-08-08] MEDS ORDERED: Albuterol 2.5 MG/3 ML NEBULIZER IH ONE (15:06)
[2017-08-08] MEDS ORDERED: methylPREDNISolone 125 MG/2 ML VIAL IVP ONE (15:07)
[2017-08-08 15:59] LABS: Basophils # 0.1 K/mcL (0.0-0.2); Basophils % 0.4 %; Eosinophils % 0.3 %; Hematocrit 34.8 % (35.3-44.9); Hemoglobin 10.8 g/dL (11.5-15.4); Immature Granulocytes % 0.7 % (0-4); Lymphocytes # 0.7 K/mcL (0.6-4.6); Lymphocytes % 5.2 %; Mean Corpuscular Hemoglobin 25.8 pg (28.0-33.3); Mean Corpuscular Volume 83.3 fL (83.0-100.0); Monocytes # 1.5 K/mcL (0.0-1.3); Monocytes % 11.4 %; Platelet Count 279 K/mcL (140-400); Red Blood Count 4.18 M/mcL (3.82-4.97); Red Cell Distribution Width 17.2 % (11.5-14.5)
[2017-08-08 16:14] LABS: Calcium 8.6 mg/dL (8.6-10.8); Potassium 4.9 mEq/L (3.5-4.5)
[2017-08-08] MEDS ORDERED: Aspirin 81 MG TAB.CHEW PO ONE (16:30)
[2017-08-08] MEDS ORDERED: Levofloxacin 750 MG/150 ML 750 MG/150 ML BAG IVPB ONE (17:19)
[2017-08-08] MEDS ORDERED: Naloxone 0.4 MG/ML INJ IVP PRN (20:02)
[2017-08-08] MEDS ORDERED: Ondansetron 4 MG/2 ML VIAL IVP PRN (20:02)
[2017-08-08] MEDS ORDERED: Acetaminophen 325 MG TABLET PO PRN (20:02)
[2017-08-08] MEDS ORDERED: Dextrose Gel 15 GM PO PRN ×2 (20:27)
[2017-08-08] MEDS ORDERED: D5% in Water 1,000 ML IVC PRN (20:27)
[2017-08-08] MEDS ORDERED: *HR* Dextrose 50 % in Water (Syg) 50 ML SYRINGE IVP PRN (20:27)
--- NOTE | 2017-08-08 20:35 | Internal Med History&Physical ---
<ZanaakashdoloresShar aleman - Last Filed: 08/08/17 21:48> Date of Encounter: 08/08/17 Time of Encounter: 19:30 Assessment and Plan (1) Acute exacerbation of CHF (congestive heart failure) Current visit: Yes Status: Acute Acute exacerbation of CHF. Current BNP is 853 on admission. Pt. reports SOB/ dyspnea for the past three days as well as increased abdominal girth and lower extremity edema. 1.5L daily fluid restriction. Lasix 40 mg IVP BID. Continuous cardiac telemetry. Supplemental O2 w/titration and SpO2 monitoring. DuoNebs Q6 scheduled. Tessalon 100 mg TID for cough. Solumedrol 40 mg IVP Q6 PRN. Monitor I &O and daily weight. Echocardiogram ordered. Pt. discussed w/Dr. Springer who agrees w/plan of care. Pt. is high risk for respiratory failure and cardiac event based on current sx, current infection, hx of CHF and COPD, and risk factors. Inpatient. Qualifiers: Congestive heart failure type: diastolic Qualified Code(s): I50.33 - Acute on chronic diastolic (congestive) heart failure (2) Acute and chronic respiratory failure with hypoxia Current visit: Yes Status: Acute Due to diastolic heart dysfunction. Pt. has hx of chronic COPD and CHF. Current acute exacerbation of CHF w/SOB and dyspnea. Pt. uses home O2 @ 2L daily and CPAP HS for sleep apnea. ABG ordered. Supplemental O2w/titration and SpO2 monitoring. DuoNebs Q6 scheduled. Tessalon 100 mg TID for cough. Continue pts. inhalers. Reports weakness d/t SOB/dyspnea. Falls/safety precautions. Monitor pt. and f/u labs. (3) Sepsis Current visit: Yes Status: Acute Pt. meets sepsis criteria based on current WBC of 13.5, HR of 93, and current infection from pneumonia. Pt. has acute on chronic hypoxia r/t current acute exacerbation of CHF complicated further by pneumonia. Lactic acid ordered stat. Blood cultures x2. Sputum culture. D/t pt. currently in CHF exacerbation, will hold IV fluids d/t current fluid overload requiring IVP lasix. IVPB levaquin 500 mg daily dt current renal function and IVPB cefepime 1,000 mg Q12 for infection coverage. Will repeat lactic acid if warranted. Monitor f/u labs. Will adjust abx coverage based on culture results. Qualifiers: Sepsis type: sepsis due to unspecified organism Qualified Code(s): A41.9 - Sepsis, unspecified organism (4) CAP (community acquired pneumonia) Current visit: Yes Status: Acute Acute SOB/dyspnea due to pneumonia complicated by acute exacerbation of CHF. 1- View CXR today shows small right pleural effusion with hazy opacities in the right lung base with differential considerations including atelectasis, pneumonia, asymmetric edema, or aspiration. Blood cultures x2. Sputum culture. Supplemental O2 and SpO2 monitoring. IVPB levaquin 500 mg daily and cefepime 1, 000 mg Q12 for infection coverage. Will adjust abx based on culture results. DuoNebs Q6 scheduled. Tessalon 100 mg TID for cough. Qualifiers: Laterality: left Lung location: unspecified part of lung Qualified Code(s ): J18.9 - Pneumonia, unspecified organism (5) Elevated troponin I level Current visit: Yes Status: Acute Acutely elevated troponin of 0.07 on admission most likely d/t demand ischemia from CHF exacerbation and atrial fibrillation. Will trend x2. Continuous cardiac telemetry. Aspirin. Continue pts. HTN and HLD medications and Eliquis. (6) Weakness Current visit: Yes Status: Acute Acute weakness d/t current CHF exacerbation, fluid overload, and pneumonia. Falls/safety precautions. PT/OT consults ordered to assess pt. for ambulation strength and stability. (7) HLD (hyperlipidemia) Current visit: Yes Status: Chronic Hx of chronic HLD. Lipid panel in a.m. labs. Continue pts. Pravastatin. Qualifiers: Hyperlipidemia type: pure hypercholesterolemia Qualified Code(s): E78.00 - Pure hypercholesterolemia, unspecified; E78.0 - Pure hypercholesterolemia (8) HTN (hypertension) Current visit: Yes Status: Chronic Hx of chronic HTN. Monitor pt. and VS. Continue patient's carvedilol, clonidine , hydralazine, and Lopressor. Add hydralazine 10 mg IVP PRN. Qualifiers: Hypertension type: essential hypertension Qualified Code(s): I10 - Essential (primary) hypertension (9) Anxiety and depression Current visit: Yes Status: Chronic Hx of chronic anxiety and depression. Continue pts. Xanax. (10) Anemia Current visit: Yes Status: Chronic Hx of chronic anemia. Current Hgb is 10.8 and Hct is 34.8 on admission which at or near pts. baseline. Monitor H/H in f/u labs and fecal hemoccult ordered. Qualifiers: Anemia type: iron deficiency Iron deficiency anemia type: chronic blood loss Qualified Code(s): D50.0 - Iron deficiency anemia secondary to blood loss (chronic) (11) KATINA (obstructive sleep apnea) Current visit: Yes Status: Chronic Hx of chronic sleep apnea on CPAP. CPAP ordered HS. Supplemental O2 w/titration and SpO2 monitoring. (12) Uncontrolled type 2 diabetes mellitus with insulin therapy Current visit: Yes Status: Chronic Hx of uncontrolled diabetes on insulin. Will continue pts HS and TIDWM insulin. BG checks ACHS. A1c in a.m. labs. ADA diet. (13) CKD (chronic kidney disease) stage 3, GFR 30-59 ml/min Current visit: Yes Status: Chronic Hx of chronic CKD w/current GFR of 33 and creatinine of 1.53. Will use IV fluids judiciously if warranted and avoid nephrotoxins. Monitor I&O and daily weight. (14) Coronary artery disease Current visit: Yes Status: Chronic Hx of chronic CAD w/previous MT in February 2017, angioplasty/stent placement x2, and triple bypass. Pt. also has hx of chronic atrial fibrillation. Continuous cardiac telemetry. Continue patient's aspirin therapy, carvedilol, Eliquis, clonidine, hydralazine, Lopressor, and pravastatin. Qualifiers: Coronary Disease-Associated Artery/Lesion type: bypass graft [place] vs. transplanted heart: [place] heart Associated angina: without angina Qualified Code(s): I25.810 - Atherosclerosis of coronary artery bypass graft(s) without angina pectoris (15) DVT prophylaxis Current visit: Yes Status: Acute Continue pts. Eliquis for DVT prophylaxis. Monitor pt. for signs of bleeding. Internal Medicine - H&P: HPI Chief complaint: SOB/Dyspnea Admitted From: Emergency Dept Plans for Post Hospital Care: Home History of present illness: Ms. Hitchcock is a 71 year old female with medical hx of arthritis, asthma, atrial fibrillation diagnosed 3 weeks ago; cancer of multiple sites including knee, colon, and renal; CHF, COPD, CAD, diabetes controlled with insulin, HLD, HTN, and previous myocardial infarction in February 2017 presents from the ED with chief complaint of shortness of breath and dyspnea for the past 3 days which is worsened over the past 24 hours. Patient reports severe shortness of breath, increased abdominal girth, increasing edema of the lower extremities, weakness, headache, and worsening productive cough. Patient also reports intermittent chest pain with deep inspiration. Patient denies fever, chills, nausea, vomiting, changes in vision, unusual bleeding, numbness, tingling, pre-syncope, or syncope. Past Med Surg Social Fam HX - Past Medical History Source: patient, old records reviewed, obtained from family Medical history: arthritis, asthma, atrial fibrillation (Dx three weeks ago. Pt. followed by Dr. Ramirez), cancer, CHF, COPD, coronary artery disease, diabetes (Insulin controlled), hyperlipidemia, hypertension, myocardial infarction Psychiatric history: anxiety, depression - Past Surgical History Surgical History: angioplasty/stent (x2), cholecystectomy, colectomy (For colon cancer), coronary bypass (CABG) (Triple), other (Left nephrectomy for renal cell carcinoma, soft tissue sarcoma excision recently) - Social History Smoking Status: Never smoker Smokeless Tobacco Status: No Alcohol use: none Drug use: none Current living situation: Home Activity Level: Uses cane/walker Recent Out of Country Travel Within the Last 8 Weeks: No Exposure or Possible Exposure to Illness During Travel: No - Family History Mother Race: Family Member Ethnicity: Non- Living Status: Age at : 86 Cause of : Colon cancer Hx Family Cancer: Yes (Colon) Father Race: Family Member Ethnicity: Non- Living Status: Age at : 65 Cause of : CHF Hx Family Cardiac Disorders: Yes (CHF, CAD, [place]) Brother Race: Family Member Ethnicity: Non- Living Status: Age at : 69 Cause of : Throat cancer Hx Family Cancer: Yes (Throat) Sister Race: Family Member Ethnicity: Non- Living Status: Age at : 62 Cause of : Emphysema Hx Family Respiratory Disorders: Yes (Emphysema) Hx Family Cancer: Yes (Breast) Internal Medicine - H&P: Meds Aspirin [Adult Low Dose Aspirin EC] 81 mg PO DAILY 11/15/15 [History] Insulin ASPART [Novolog Flexpen] 15 unit SQ TIDWM 11/15/15 [History] Insulin Glargine,Hum.rec.anlog [Lantus Solostar] 50 unit SQ HS 11/15/15 [History ] Metoprolol Tartrate [Lopressor] 50 mg PO BID 11/15/15 [History] Ferrous Sulfate 325 mg PO DAILY 11/29/16 [History] Hydralazine HCl 100 mg PO TID 11/29/16 [History] [place]-3/Dha/Epa/Fish Oil [Fish Oil 1,000 mg Softgel] 1 cap PO DAILY 11/29/16 [ History] cloNIDine HCl [Clonidine HCl] 0.3 mg PO TID #90 tab 03/05/17 [Rx] Albuterol Sulfate [Proair Hfa] 1 puff IH Q4H PRN #1 inh 05/11/17 [Rx] Furosemide [Lasix] 40 mg PO DAILY #7 tablet 08/07/17 [Rx] Potassium Bicarbonate/Cit AC [Potassium 25 Meq Tablet Eff] 25 meq PO DAILY #7 tablet.eff 08/07/17 [Rx] ALPRAZolam [Xanax 0.5 MG Tablet] 0.5 mg PO BID PRN 08/08/17 [History] Apixaban [Eliquis] 2.5 mg PO BID 08/08/17 [History] Carvedilol 12.5 mg PO BID 08/08/17 [History] Pravastatin Sodium [Pravachol] 80 mg PO QPM 08/08/17 [History] 3 Allergy/AdvReac Type Severity Reaction Status Date / Time Sulfa (Sulfonamide Allergy Swelling Verified 08/08/17 14:45 Antibiotics) of Lip/Tongue/Throat All Systems PM: A 10-system review of systems was performed and is negative for pertinent findings except as documented above in the HPI. - Constitutional Constitutional: no chills, no fever(s), no night sweats - EENT Eyes: no change in vision, no discharge, no pain, no photophobia Ears: no ear discharge, no ear pain, no tinnitus Nose, mouth and throat: no dysphagia, no nasal discharge, no neck pain, no sore throat - Breasts Breasts: as per HPI - Cardiovascular Cardiovascular ROS IM: as per HPI, chest pain (with inspiration), dyspnea, dyspnea on exertion, edema (Bilateral 1+ pitting in LEs), irregular heart rhythm (Atrial fibrillation), orthopnea - Respiratory Respiratory: as per HPI, cough, dyspnea, dyspnea on exertion, wheezing, pain on inspiration, chest congestion, pain with cough - Gastrointestinal Gastrointestinal: no abdominal pain, no diarrhea, no hematemesis, no hematochezia, no melena, no nausea, no vomiting - Genitourinary Genitourinary: no change in urinary stream, no dysuria, no flank pain, no hematuria Menstruation: as per HPI - Musculoskeletal Musculoskeletal ROS IM: no numbness, no tingling - Integumentary Integumentary IM: as per HPI, erythema (Right knee r/t recent fall) - Neurological Neurological ROS: no confusion, no convulsions, no focal weakness, no numbness, no tingling, no tremor(s) - Psychiatric Psychiatric: as per HPI, anxiety, depression - Endocrine Endocrine IM: as per HPI - Hematologic/Lymphatic Hematologic/Lymphatic: no easy bruising - Allergic/Immunologic Allergic/Immunologic: as per HPI - Constitutional Vitals: Temp Pulse Resp BP Pulse Ox 97.8 F 93 16 196/96 95 08/08/17 20:24 08/08/17 20:24 08/08/17 20:24 08/08/17 20:24 08/08/17 20:24 General appearance: Present: cooperative, A&O X 3, morbidly obese, pleasant, severe distress (Respiratory w/audible wheezes), answers questions appropriately - Head Head exam: Present: atraumatic, normal inspection, normocephalic - Eye Eye exam: Present: PERRL, conjuntiva pink, sclera anicteric Pupils: Present: PERRL - ENT ENT exam: Present: normal exam, normal external ear exam - Neck Neck exam general surgery: Present: normal inspection, supple, trachea midline. Absent: lymphadenopathy - Respiratory Respiratory exam: Present: accessory muscle use, respiratory distress, wheezes. Absent: rales, rhonchi - Cardiovascular Cardiovascular exam: Present: irregular rhythm (Atrial fibrillation) - GI/Abdominal GI/Abdominal exam: Present: normal bowel sounds, soft, no peritoneal signs. Absent: distended, tenderness - Rectal Rectal exam: Present: deferred - Additional comments: exam deferred. - Extremities Exam Extremities exam: Present: pedal edema (1+ pitting bilaterally), warm, radial pulses palpable and symmetrical. Absent: calf tenderness, cyanotic - Back Exam Back exam: Present: normal inspection - Neurological Exam Neurological exam: Present: CN II-XII intact, oriented X3, no focal deficits. Absent: pronater drift, facial droop, speech deficit - Psychiatric Psychiatric exam: Present: normal affect, normal mood - Skin Skin exam: Present: erythema (Right knee and lower pak/calf) Internal Med - H&P Results - Labs CBC & Chem 7: 08/08/17 15:45 08/08/17 15:45 - EKG Data Prior EKG available for review: yes EKG comments: 08/08/17 20:51 EKG dated 03/24/17 shows sinus bradycardia with first-degree AV block, possible right ventricular conduction delay, left ventricular hypertrophy and STT changes , and possible anterior myocardial infarction of indeterminate age. EKG dated 08/08/17 shows atrial fibrillation with rapid ventricular response, possible right ventricular conduction delay, nonspecific ST and T-wave abnormality. - Diagnostic Studies Chest x-ray Additional comments: Impressions Chest X-Ray 08/08/17 14:54 IMPRESSION: 1. Small right pleural effusion with hazy opacity within the right lung base, with differential considerations including atelectasis, pneumonia, asymmetric edema, or aspiration. 2. Stable cardiomegaly. D/ / 08/08/2017 16:09:15 Silvestre Lara MD / lizz Interpreting Provider: Silvestre Lara MD Other Images Additional comments: Impressions Pulmonary Perfusion Imaging 08/08/17 15:27 IMPRESSION: Indeterminate probability of pulmonary emboli, with multiple moderate-size subsegmental perfusion defects but even greater and extensive abnormal ventilation defects with retention. Suspect predominance of airway disease. Recommend chest CT PA if feasible. D/ / Reggie Green MD / Reggie Green MD Interpreting Provider: Reggie Green MD <Wil Springer - Last Filed: 08/09/17 04:35> Date of Encounter: 08/09/17 Internal Medicine - H&P: HPI History of present illness: Ms. Hitchcock is a 71 year old female All Systems PM: A 10-system review of systems was performed and is negative for pertinent findings except as documented above in the HPI. - Constitutional Vitals: Temp Pulse Resp BP Pulse Ox 97.6 F 83 20 176/81 92 08/09/17 04:02 08/09/17 04:02 08/09/17 04:06 08/09/17 04:02 08/09/17 04:06 Internal Med - H&P Results - Labs CBC & Chem 7: 08/08/17 15:45 08/08/17 15:45 Labs: Cardiac Enzymes 08/08/17 Range/Units 21:20 Troponin I 0.12 H* (0-0.03) ng/mL - Attending Attestation I have personally performed a face to face evaluation on this patient. I have reviewed and agree with the care plan by TALENT AGENT Shar Vasques. History and Exam by me shows: Ms. Hitchcock is a 71 year old female with medical hx of Chronic atrial fibrillation on eliquis for anticoag, diastolic CHF, COPD, CAD, diabetes controlled with insulin, HLD, HTN, and previous myocardial infarction in February 2017 presents from the ED with chief complaint of shortness of breath and dyspnea for the past 3 days which is worsened over the past 24 hours. Patient reports severe shortness of breath, increased abdominal girth, increasing edema of the lower extremities. Pt was give IV lasix and breathing treatments, now she feels little better. Denied any CP. Gen: A, A, O x 3 Chest: Diminished BS, crackles / rales b/l basal regions. Mild wheezing Heart : S1 S2+ irregular rate and rhythm Ext: 1-2+ pitting edema a/p 1. Acute diastolic CHF exacerbation IV Lasix + 2 D Echo in AM resumed home med Metoprolol 2. Acute A fib with RVR - due to resp distress No need of Cardizem gtt now will adjust Metoprolol dose 3. Acute hypoxic resp distress 4. Pneumonia 5. Acute COPD exacerbation empirical abx, Duoneb + Steroids
[2017-08-08] MEDS ORDERED: GuaiFENesin/Dextromethorphan TABLET PO SCH (21:15)
[2017-08-08] MEDS ORDERED: Benzonatate 100 MG CAPSULE PO PRN (21:25)
[2017-08-08] MEDS ORDERED: Azithromycin 500 MG in D5% in Water 250 ML IVPB SCH (22:00)
[2017-08-08] MEDS: Ipratropium/Albuterol Neb 3 ML IH SCH (22:20)
[2017-08-08] MEDS: Furosemide 40 MG/4 ML VIAL IVP SCH (23:07)
[2017-08-08] MEDS: hydrALAZINE 25 MG TABLET PO SCH (23:07)
[2017-08-08] MEDS: cloNIDine HCl 0.1 MG TABLET PO SCH (23:07)
[2017-08-08] MEDS: MethylPREDNISolone 40 MG/ML VIAL IVP SCH (23:07)
[2017-08-08] MEDS: *HR* HYDROcodone/Acet 5/325 mg TABLET PO PRN (23:08)
[2017-08-08] MEDS: Insulin DETEMIR 100 UNIT/ML X5UNITS SQ SCH (23:08)
[2017-08-08] MEDS: APIXABAN 2.5 MG TABLET PO SCH (23:10)
[2017-08-09] MEDS: MethylPREDNISolone 40 MG/ML VIAL IVP SCH ×4 (00:01→20:14)
[2017-08-09] MEDS: Ipratropium/Albuterol Neb 3 ML IH SCH ×4 (04:05→21:49)
[2017-08-09 05:18] LABS: Basophils % 0.3 %; Hematocrit 34.5 % (35.3-44.9); Hemoglobin 10.8 g/dL (11.5-15.4); Immature Granulocytes % 0.5 % (0-4); Lymphocytes # 0.4 K/mcL (0.6-4.6); Lymphocytes % 5.4 %; Mean Corpuscular HGB Conc 31.3 g/dL (31.6-35.5); Mean Corpuscular Hemoglobin 26.4 pg (28.0-33.3); Mean Corpuscular Volume 84.4 fL (83.0-100.0); Mean Platelet Volume 11.9 fL (9.4-12.4); Monocytes # 0.2 K/mcL (0.0-1.3); Monocytes % 1.9 %; Neutrophils # 7.2 K/mcL (1.6-8.9); Platelet Count 252 K/mcL (140-400); Red Blood Count 4.09 M/mcL (3.82-4.97); Red Cell Distribution Width 17.5 % (11.5-14.5); Segmented Neutrophils % 91.9 %
[2017-08-09 05:22] LABS: INR 1.8; Prothrombin Time 19.5 Seconds (9.4-12.1)
[2017-08-09 05:25] LABS: Activated Partial Thrombo Time 29.6 Seconds (26.0-36.0)
[2017-08-09 05:32] LABS: Hemoglobin A1C 8.2 %
[2017-08-09 05:39] LABS: Albumin 2.6 g/dL (3.5-5.0); Albumin/Globulin Ratio 0.6 (1.1-2.2); Bilirubin,Total 0.5 mg/dL (0.2-1.2); Calcium 8.6 mg/dL (8.6-10.8); Chol/HDL Ratio 3.8 (0-4.9); Globulin 4.7 g/dL (2.4-3.5); Magnesium 1.9 mg/dL (1.6-2.6); Total Protein 7.3 g/dL (6.0-8.3)
[2017-08-09] MEDS ORDERED: Cefepime HCl 1,000 MG in Water for inj. (sterile) 10 ML IVP SCH (06:00)
[2017-08-09 07:00] LABS: ABG Base Excess -1 mEq/L (-2 to 3); ABG HCO3 25 mEq/L (21-27); ABG Oxygen Saturation 96 % (95-98); ABG PCO2 43 mmHg (35-45); ABG PH 7.37 pH Units (7.32-7.45); ABG PO2 83 mmHg (85-104); ABG TCO2 26 mEq/L (20-26)
[2017-08-09] MEDS ORDERED: D5% in Water 1,000 ML IVC PRN (07:48)
[2017-08-09] MEDS ORDERED: *HR* Dextrose 50 % in Water (Syg) 50 ML SYRINGE IVP PRN (07:48)
[2017-08-09] MEDS ORDERED: Dextrose Gel 15 GM PO PRN ×2 (07:48)
[2017-08-09] MEDS: Furosemide 40 MG/4 ML VIAL IVP SCH ×2 (08:45→17:09)
[2017-08-09] MEDS: cloNIDine HCl 0.1 MG TABLET PO SCH ×3 (08:45→20:15)
[2017-08-09] MEDS: hydrALAZINE 25 MG TABLET PO SCH ×3 (08:46→20:14)
[2017-08-09] MEDS: Aspirin Enteric Coated 81 MG Tablet PO SCH (08:46)
[2017-08-09] MEDS: Insulin LISPRO 300 UNITS/3 ML VIAL SQ SCH ×7 (08:47→20:15)
[2017-08-09] MEDS ORDERED: Levofloxacin 500 MG/100 ML 500 MG/100 ML BAG IVPB SCH (09:00)
[2017-08-09] MEDS ORDERED: (Omega-3/Dha/Epa/Fish Oil [Fish Oil 1,000 Mg Softgel] PO SCH (09:00)
[2017-08-09] MEDS ORDERED: Levofloxacin 750 MG/150 ML 750 MG/150 ML BAG IVPB SCH (09:00)
[2017-08-09] MEDS: APIXABAN 2.5 MG TABLET PO SCH ×2 (09:02→20:14)
--- NOTE | 2017-08-09 11:06 | Cardiology Consult Note ---
Date of Encounter: 08/09/17 Time of Encounter: 11:30 Assessment and Plan (1) Atrial fibrillation Current Visit: Yes Status: Acute Recent Afib with RVR in setting of hypoxic respiratory failure + CHF Patient becomes symptomatic in periods of RVR, however she feels fine otherwise Periods of worsened RVR are likely secondary to pulmonary status On current medications, the patient is well rate controlled on current regimen Echo shows severe Pulmonary HTN with mod-severe TR Recommendations: Continue rate control, continue eliquis Treat pulmonary status, consider Pulm consult Qualifiers: Atrial fibrillation type: paroxysmal Qualified Code(s): I48.0 - Paroxysmal atrial fibrillation (2) CHF (congestive heart failure) Current Visit: No Status: Chronic CHFpEF, currently fluid overloaded TTE shows LVEF 50-55%, Mild LVH with LV Diastolic dysfunction, severe pulmonary HTN with RSVP 83 CXR shows Small right pleural effusion with hazy opacity within the right lung base, with differential considerations including atelectasis, pneumonia, asymmetric edema, or aspiration. Patient has Trop 0.07->0.12->0.08 likely secondary to demand ischemia, BNP 853 Recommendations Fluid restrict to 1500ml qd, cardiac diet Strict I/Os, daily weights Continue gentle/cautious diuresis as tolerated by kidney function Qualifiers: Congestive heart failure type: diastolic Congestive heart failure chronicity: acute on chronic Qualified Code(s): I50.33 - Acute on chronic diastolic (congestive) heart failure Discussion w patient/family: The assessment and plan as outlined above was discussed with the patient and/or family members who expressed understanding and agreement. All questions were answered. Thank you for involving us in the care of your patient. Please call with any questions. History of Present Illness Consult date: 08/09/17 Requesting physician: Laura English Consult reason: Recent AFib Chief complaint: SOB with Rapid Heart Rate History of present illness: Ms. Hitchcock is a 71 year old female with complicated medical history including chf, copd, multiple MIs s/p CABG + Stents, asthma, IDDM2, cancer, and relatively new atrial fibrillation. She presented to the ED with SOB with rapid heart rate of 3 days duration that seems to be worsening over the past 1 day. She says that in addition to this shortness of breath she has had worsening edema in her lower extremeties and increased abdominal girth. Further, she has experienced a productive cough that is also worsened. She was diagnosed with Atrial fibrillation about one month ago, at which time she had similar feelings. Since that time, she has been anticoagulated with Eliquus and rate controlled with coreg and lopressor. She states that these feelings are intermittent and seem to worsen at times when her heart rate becomes elevated. Additionally, she gets palpitations at that time and feels a palpable thrill on her chest. When her heart rate returns to normal, she no longer feels ill. In the ED, patient was found to have Afib with RVR, trops 0.07 -> 0.12 -> 0.08, BNP 853. CXR showed small pleural effusion with hazy opacity possibly representing edema or pneumonia. VQ was indeterminate. New TTE showed 50-55% LVEF with severe pulmonary htn. Past Med Surg Social Fam HX - Past Medical History Medical history: arthritis, asthma, atrial fibrillation (Dx three weeks ago. Pt. followed by Dr. Ramirez), cancer, CHF, COPD, coronary artery disease, diabetes (Insulin controlled), hyperlipidemia, hypertension, myocardial infarction Psychiatric history: anxiety, depression - Past Surgical History Surgical History: angioplasty/stent (x2), cholecystectomy, colectomy (For colon cancer), coronary bypass (CABG) (Triple), other (Left nephrectomy for renal cell carcinoma, soft tissue sarcoma excision recently) - Social History Smoking Status: Never smoker Smokeless Tobacco Status: No Alcohol use: none Drug use: none - Family History Father Race: Family Member Ethnicity: Non- Living Status: Age at : 65 Cause of : CHF Hx Family Cardiac Disorders: Yes (CHF, CAD, [place]) Brother Race: Family Member Ethnicity: Non- Living Status: Age at : 69 Cause of : Throat cancer Hx Family Cancer: Yes (Throat) Sister Race: Family Member Ethnicity: Non- Living Status: Age at : 62 Cause of : Emphysema Hx Family Respiratory Disorders: Yes (Emphysema) Hx Family Cancer: Yes (Breast) Mother Race: Family Member Ethnicity: Non- Living Status: Age at : 86 Cause of : Colon cancer Hx Family Cardiac Disorders: No Hx Family Respiratory Disorders: No Hx Family Cancer: Yes (Colon) Hx Family GI Disorders: No Hx Family Endocrine Disorder: No Hx Family Neuromuscular Disorders: No Hx Family Neurologic Disorders: No Hx Family HEENT Disorders: No Hx Family Autoimmune Disorders: No Medications and Allergies Aspirin [Adult Low Dose Aspirin EC] 81 mg PO DAILY 11/15/15 [History] Insulin ASPART [Novolog Flexpen] 15 unit SQ TIDWM 11/15/15 [History] Insulin Glargine,Hum.rec.anlog [Lantus Solostar] 50 unit SQ HS 11/15/15 [History ] Metoprolol Tartrate [Lopressor] 50 mg PO BID 11/15/15 [History] Ferrous Sulfate 325 mg PO DAILY 11/29/16 [History] Hydralazine HCl 100 mg PO TID 11/29/16 [History] [place]-3/Dha/Epa/Fish Oil [Fish Oil 1,000 mg Softgel] 1 cap PO DAILY 11/29/16 [ History] cloNIDine HCl [Clonidine HCl] 0.3 mg PO TID #90 tab 03/05/17 [Rx] Albuterol Sulfate [Proair Hfa] 1 puff IH Q4H PRN #1 inh 05/11/17 [Rx] Furosemide [Lasix] 40 mg PO DAILY #7 tablet 08/07/17 [Rx] Potassium Bicarbonate/Cit AC [Potassium 25 Meq Tablet Eff] 25 meq PO DAILY #7 tablet.eff 08/07/17 [Rx] ALPRAZolam [Xanax 0.5 MG Tablet] 0.5 mg PO BID PRN 08/08/17 [History] Apixaban [Eliquis] 2.5 mg PO BID 08/08/17 [History] Carvedilol 12.5 mg PO BID 08/08/17 [History] Pravastatin Sodium [Pravachol] 80 mg PO QPM 08/08/17 [History] 3 Allergy/AdvReac Type Severity Reaction Status Date / Time Sulfa (Sulfonamide Allergy Swelling Verified 08/08/17 14:45 Antibiotics) of Lip/Tongue/Throat All Systems Review: A 10-system review of systems was performed and is negative for pertinent findings except as documented above in the HPI. Physical Examination Vital Signs, Last 4 Hours Temp Pulse Resp BP Pulse Ox 08/09/17 08:00 97.6 F 73 18 154/76 97 General: Conversant, No Apparent Distress HEENT: Atraumatic, Normocephaly, Mucus Membranes Moist Neck: No JVD, Normal carotid pulses Cardiac: Normal S1 and S2, No Murmur, Other (Irregularly irregular) Lungs: Normal Breath Sounds, Other (Wheezes and gurgling heard audibly in room without stethoscope) Neuro: Alert and responsive, No focal deficits noted Abdomen: Soft, Non-Tender Skin: No rashes noted on visualized skin Musculoskeletal: No Chest Wall Tenderness Extremities: No Clubbing, No Cyanosis, Normal Pulses, Other (2+ LE Edema b/l. Post surgical scaring present pretibial r. leg) Results 08/09/17 03:55 08/09/17 03:55 Lab Results 08/08/17 08/09/17 08/09/17 21:20 03:55 03:55 WBC 7.8 Hgb 10.8 L Hct 34.5 L Plt Count 252 INR 1.8 APTT 29.6 Sodium Potassium Chloride Carbon Dioxide BUN Creatinine Glucose Calcium Magnesium Total Bilirubin AST ALT Alkaline Phosphatase Troponin I 0.12 H* 08/09/17 08/09/17 03:55 03:55 WBC Hgb Hct Plt Count INR APTT Sodium 132 L Potassium 5.0 H Chloride 100 Carbon Dioxide 21 BUN 35 H Creatinine 1.72 H Glucose 321 H Calcium 8.6 Magnesium 1.9 Total Bilirubin 0.5 AST 15 ALT 15 Alkaline Phosphatase 113 Troponin I 0.08 H* - Imaging and Cardiology Chest Xray: report reviewed Echo: report reviewed - EKG Interpretation EKG results cardiology: personally reviewed (AFib RVR) Consult Discharge Plan - Plan Referrals: Geremias Ryan DO [Primary Care Provider] -
[2017-08-09] MEDS: ALPRAZolam 0.5 MG TABLET PO PRN (14:56)
[2017-08-09] MEDS: *HR* HYDROcodone/Acet 5/325 mg TABLET PO PRN (14:56)
[2017-08-09] MEDS ORDERED: Ipratropium/Albuterol Neb 3 ML IH PRN (15:22)
--- NOTE | 2017-08-09 15:27 | Internal Med Progress Note ---
Date of Encounter: 08/09/17 Time of Encounter: 13:15 - Assessment and plan (1) Acute and chronic respiratory failure with hypoxia Current Visit: Yes Status: Acute Assessment and plan: Multifactorial in the setting of acute exacerbation of COPD with PNA and mild CHF decompensation continue systemic steroids, bronchodilator support IV abx f/u blood cultures continue IV diuresis monitor I/Os, fluid restriction diet, daily weights cardiology on board and consultation appreciated closely monitor O2 sat, goal O2 sat: 88-92% will continue to closely monitor bipap support as needed (2) Acute exacerbation of CHF (congestive heart failure) Current Visit: Yes Status: Acute Assessment and plan: as listed above Qualifiers: Congestive heart failure type: diastolic Qualified Code(s): I50.33 - Acute on chronic diastolic (congestive) heart failure (3) Acute exacerbation of chronic obstructive pulmonary disease (COPD) Current Visit: Yes Status: Acute Assessment and plan: as listed above (4) CAP (community acquired pneumonia) Current Visit: Yes Status: Acute Assessment and plan: IV abx f/u blood culture reports Qualifiers: Laterality: left Lung location: unspecified part of lung Qualified Code(s ): J18.9 - Pneumonia, unspecified organism (5) Anemia Current Visit: Yes Status: Chronic Assessment and plan: history of iron deficiency anemia H&H low but acceptable continue home dose of ferrous sulfate will continue to closely monitor Qualifiers: Anemia type: iron deficiency Iron deficiency anemia type: chronic blood loss Qualified Code(s): D50.0 - Iron deficiency anemia secondary to blood loss (chronic) (6) Anxiety and depression Current Visit: Yes Status: Chronic Assessment and plan: continue home meds (7) CKD (chronic kidney disease) stage 3, GFR 30-59 ml/min Current Visit: Yes Status: Chronic Assessment and plan: Creatinine mildly worsened from previous day however still at baseline will continue IV diuresis and closely monitor renal function (8) DVT prophylaxis Current Visit: No Status: Acute Assessment and plan: anticoagulated with Eliquis (9) HTN (hypertension) Current Visit: Yes Status: Chronic Assessment and plan: Uncontrolled BP continue home dose of Clonidine, Hydralazine, Metoprolol added Hydralazine 10mg IV q6h Prn SBP>160 continue to closely monitor Qualifiers: Hypertension type: essential hypertension Qualified Code(s): I10 - Essential (primary) hypertension (10) Sepsis Current Visit: Yes Status: Resolved Assessment and plan: likely secondary to underlying PNA Qualifiers: Sepsis type: sepsis due to unspecified organism Qualified Code(s): A41.9 - Sepsis, unspecified organism (11) Uncontrolled type 2 diabetes mellitus with insulin therapy Current Visit: Yes Status: Chronic Assessment and plan: continue basal and premeal insulin coverage added high dose sliding scale insulin algorithm monitor fingerstick and blood glucose will adjust insulin therapy as per her insulin requirements ADA diet (12) Morbid obesity with BMI of 40.0-44.9, adult Current Visit: Yes Status: Chronic (13) Atrial fibrillation Current Visit: Yes Status: Chronic Assessment and plan: Rate controlled with Metoprolol Anticoagulated with Eliquis Qualifiers: Atrial fibrillation type: paroxysmal Qualified Code(s): I48.0 - Paroxysmal atrial fibrillation - Subjective Interval history: Patient seen and examined with daughter present at bedside. Pt reported of having underlying anxiety and requesting her home dose of Xanax. She reports of improvement in her respiratory status. Currently saturating well on 4L NC however her baseline is 2L NC at home. Noted to have b/l expiratory wheezing, therefore will continue systemic steroids and bronchodilator support. bipap as needed - Constitutional Vitals: Temp Pulse Resp BP Pulse Ox 97.6 F 73 18 154/76 99 08/09/17 08:00 08/09/17 08:00 08/09/17 10:39 08/09/17 08:00 08/09/17 10:39 General appearance: Present: cooperative, A&O X 3, morbidly obese, pleasant, no acute distress, answers questions appropriately - Head Head exam: Present: atraumatic, normocephalic - Eye Eye exam: Present: conjuntiva pink, sclera anicteric - Respiratory Respiratory exam: Present: wheezes (b/l expiratory wheezing, coarse breath sounds). Absent: respiratory distress - Cardiovascular Cardiovascular exam: Present: irregular rhythm, +S1, +S2. Absent: diastolic murmur, systolic murmur - GI/Abdominal GI/Abdominal exam: Present: normal bowel sounds, soft, no peritoneal signs. Absent: distended, tenderness - Extremities Exam Extremities exam: Present: pedal edema (b/l LE pitting edema), warm, radial pulses palpable and symmetrical. Absent: calf tenderness - Neurological Exam Neurological exam: Present: alert, oriented X3 - Psychiatric Psychiatric exam: Present: normal affect, normal mood Internal Medicine: Result - Labs CBC & Chem 7: 08/09/17 03:55 08/09/17 03:55 Labs: Short CBC 08/09/17 Range/Units 03:55 WBC 7.8 (4.3-11.1) K/mcL Hgb 10.8 L (11.5-15.4) g/dL Hct 34.5 L (35.3-44.9) % Plt Count 252 (140-400) K/mcL Neutrophils # 7.2 (1.6-8.9) K/mcL BMP 08/09/17 03:55 Sodium 132 L Potassium 5.0 H Chloride 100 Carbon Dioxide 21 BUN 35 H Creatinine 1.72 H Glucose 321 H Calcium 8.6 Cardiac Enzymes 08/08/17 08/09/17 Range/Units 21:20 03:55 Troponin I 0.12 H* 0.08 H* (0-0.03) ng/mL Liver Function 08/09/17 Range/Units 03:55 Total Bilirubin 0.5 (0.2-1.2) mg/dL AST 15 (5-34) Units/L ALT 15 (0-55) Units/L Alkaline Phosphatase 113 (38-126) Units/L Albumin 2.6 L (3.5-5.0) g/dL - ABG Interpretation ABG results: ABG ABG pH 7.37 pH Units (7.32-7.45) 08/09/17 06:57 ABG pCO2 43 mmHg (35-45) 08/09/17 06:57 ABG pO2 83 mmHg (85-104) L 08/09/17 06:57 ABG O2 Saturation 96 % (95-98) 08/09/17 06:57 PT/INR, D-dimer PT 19.5 Seconds (9.4-12.1) H 08/09/17 03:55 - Impressions Impressions Echocardiogram 08/09/17 21:26 Impressions: LVEF 50-55%. Mild to moderate concentric left ventricular hypertrophy. Moderate left ventricular diastolic dysfunction with elevated filling pressures. Severely dilated left atrium. Mildly dilated RV with moderate reduction in function. Mild-moderate mitral regurgitation. Moderate-severe tricuspid regurgitation. Mild pulmonic regurgitation. Severe pulmonary hypertension. Left Ventricular Wall Motion: Rest Echo Findings All wall segments showed normal motion. Findings: Study Quality * Technically adequate exam. ECG Findings * Atrial flutter. Left Ventricle * Mild to moderate concentric left ventricular hypertrophy. * Normal LV size. * Moderate left ventricular diastolic dysfunction with elevated filling pressures by E/e'. * LVEF 50-55%. Left Atrium * Severely dilated left atrium. Right Atrium * Normal right atrial size. Aortic Valve * No aortic regurgitation. * Trileaflet aortic valve. * No aortic stenosis. Mitral Valve * Normal mitral valve structure. * No mitral stenosis. * Mild-moderate mitral regurgitation. Tricuspid Valve * Normal tricuspid valve structure. * Moderate-severe tricuspid regurgitation. * Estimated RA pressure is 8 mmHg. * Estimated RVSP is 83 mmHg. * Severe pulmonary hypertension. Pulmonic Valve * Pulmonic valve is not well visualized. * No pulmonic stenosis. * Mild pulmonic regurgitation. Pulmonary Artery * Pulmonary artery not well visualized. Aorta * Normally sized aortic root. * Ascending aorta is not well visualized. Pericardium * There is no pericardial effusion present. Right Ventricle * Mildly dilated RV with moderate reduction in function. Interatrial Septum * No evidence of PFO by color Doppler. IVC * The IVC is not dilated. * < 50% respiratory change. Consult Discharge Plan - Plan Referrals: Geremias Ryan DO [Primary Care Provider] -
[2017-08-09] MEDS ORDERED: MethylPREDNISolone 40 MG/ML VIAL IVP SCH (16:00)
--- NOTE | 2017-08-09 16:01 | Electrocardiograph Report ---
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
[2017-08-09] MEDS: Cefepime HCl 2,000 MG in Water for inj. (sterile) 20 ML IVP SCH (17:08)
[2017-08-09] MEDS: Insulin DETEMIR 100 UNIT/ML X5UNITS SQ SCH (20:15)
[2017-08-09] MEDS ORDERED: Insulin LISPRO 300 UNITS/3 ML VIAL SQ SCH (21:00)
[2017-08-10] MEDS: Ipratropium/Albuterol Neb 3 ML IH SCH ×4 (04:38→22:12)
[2017-08-10] MEDS: MethylPREDNISolone 40 MG/ML VIAL IVP SCH ×3 (04:59→21:20)
[2017-08-10 06:06] LABS: Albumin 2.8 g/dL (3.5-5.0); Albumin/Globulin Ratio 0.6 (1.1-2.2); Bilirubin,Total 0.5 mg/dL (0.2-1.2); Calcium 8.9 mg/dL (8.6-10.8); Globulin 4.7 g/dL (2.4-3.5); Magnesium 2.1 mg/dL (1.6-2.6); Phosphorous 4.7 mg/dL (2.3-4.7); Total Protein 7.5 g/dL (6.0-8.3)
[2017-08-10 06:07] LABS: Potassium 4.1 mEq/L (3.5-4.5)
[2017-08-10 06:10] LABS: Basophils % 0.2 %; Hematocrit 34.9 % (35.3-44.9); Hemoglobin 10.9 g/dL (11.5-15.4); Immature Granulocytes % 0.5 % (0-4); Lymphocytes # 0.8 K/mcL (0.6-4.6); Lymphocytes % 4.5 %; Mean Corpuscular HGB Conc 31.2 g/dL (31.6-35.5); Mean Corpuscular Hemoglobin 26.5 pg (28.0-33.3); Mean Corpuscular Volume 84.9 fL (83.0-100.0); Mean Platelet Volume 11.5 fL (9.4-12.4); Monocytes # 1.4 K/mcL (0.0-1.3); Monocytes % 8.2 %; Neutrophils # 14.7 K/mcL (1.6-8.9); Platelet Count 301 K/mcL (140-400); Red Blood Count 4.11 M/mcL (3.82-4.97); Red Cell Distribution Width 17.6 % (11.5-14.5); Segmented Neutrophils % 86.6 %
[2017-08-10] MEDS: Insulin LISPRO 300 UNITS/3 ML VIAL SQ SCH ×7 (08:01→21:23)
[2017-08-10] MEDS: APIXABAN 2.5 MG TABLET PO SCH ×2 (08:10→21:20)
[2017-08-10] MEDS: Aspirin Enteric Coated 81 MG Tablet PO SCH (08:11)
[2017-08-10] MEDS: hydrALAZINE 25 MG TABLET PO SCH ×3 (08:11→21:20)
[2017-08-10] MEDS: cloNIDine HCl 0.1 MG TABLET PO SCH ×3 (08:11→21:20)
[2017-08-10] MEDS: Furosemide 40 MG/4 ML VIAL IVP SCH ×2 (08:12→16:36)
[2017-08-10] MEDS: *HR* HYDROcodone/Acet 5/325 mg TABLET PO PRN (08:15)
--- NOTE | 2017-08-10 08:21 | Cardiology Progress Note ---
Date of Encounter: 08/10/17 Time of Encounter: 11:00 Assessment and Plan (1) Atrial fibrillation Current Visit: Yes Status: Chronic Recent Afib with RVR in setting of hypoxic respiratory failure + CHF Patient becomes symptomatic in periods of RVR, however she feels fine otherwise Periods of worsened RVR are likely secondary to pulmonary status On current medications, the patient is well rate controlled on current regimen Echo shows severe Pulmonary HTN with mod-severe TR HR has remained under 80bpm for most part, BP elevated Recommendations: Continue rate control, continue eliquis BP may require further treatment, however we are not prepared to make a change immediately Treat pulmonary status Qualifiers: Atrial fibrillation type: paroxysmal Qualified Code(s): I48.0 - Paroxysmal atrial fibrillation (2) CHF (congestive heart failure) Current Visit: No Status: Chronic CHFpEF, currently fluid overloaded but mildly improved TTE shows LVEF 50-55%, Mild LVH with LV Diastolic dysfunction, severe pulmonary HTN with RSVP 83 CXR shows Small right pleural effusion with hazy opacity within the right lung base, with differential considerations including atelectasis, pneumonia, asymmetric edema, or aspiration. Patient has Trop 0.07->0.12->0.08 likely secondary to demand ischemia, BNP 853 Recommendations Fluid restrict to 1500ml qd, cardiac diet Strict I/Os, daily weights Continue gentle/cautious diuresis as tolerated by kidney function Qualifiers: Congestive heart failure type: diastolic Congestive heart failure chronicity: acute on chronic Qualified Code(s): I50.33 - Acute on chronic diastolic (congestive) heart failure Discussion w patient/family: The assessment and plan as outlined above was discussed with the patient and/or family members who expressed understanding and agreement. All questions were answered. Thank you for involving us in the care of your patient. Please call with any questions. Subjective Principal diagnosis: Afib RVR Interval history: HR Improved overnight, some hypertension. Mild improvement in volume status. Lung sounds remain coarse Objective Vital Signs, Last 4 Hours Temp Pulse Resp BP Pulse Ox 08/10/17 07:00 97.7 F 78 18 187/103 97 08/10/17 04:42 97.3 F L 73 20 200/86 99 08/10/17 04:39 20 97 Other: General: Conversant, No Apparent Distress HEENT: Atraumatic, Normocephaly, Mucus Membranes Moist Neck: No JVD, Normal carotid pulses Cardiac: Normal S1 and S2, No Murmur, Other (Irregularly irregular) Lungs: Normal Breath Sounds, Other (Wheezes and gurgling heard audibly in room without stethoscope, coarse but improved from previous) Neuro: Alert and responsive, No focal deficits noted Abdomen: Soft, Non-Tender Skin: No rashes noted on visualized skin Musculoskeletal: No Chest Wall Tenderness Extremities: No Clubbing, No Cyanosis, Normal Pulses, Other (2+ LE Edema b/l. Post surgical scaring present pretibial r. leg) Results 08/10/17 05:42 08/10/17 05:42 Lab Results 08/10/17 08/10/17 05:42 05:42 WBC 17.0 H D Hgb 10.9 L Hct 34.9 L Plt Count 301 Sodium 138 Potassium 4.1 Chloride 99 Carbon Dioxide 29 BUN 49 H D Creatinine 1.69 H Glucose 90 Calcium 8.9 Magnesium 2.1 Total Bilirubin 0.5 AST 19 ALT 17 Alkaline Phosphatase 106 Consult Discharge Plan - Plan Additional Instructions: pcp requested Referrals: Geremias Ryan DO [Primary Care Provider] - 08/17/17 1:00 pm
[2017-08-10] MEDS: Insulin DETEMIR 100 UNIT/ML X5UNITS SQ SCH ×2 (12:05→21:20)
--- NOTE | 2017-08-10 12:49 | Internal Med Progress Note ---
Date of Encounter: 08/10/17 Time of Encounter: 12:38 - Assessment and plan (1) Acute and chronic respiratory failure with hypoxia Current Visit: Yes Status: Acute Assessment and plan: Multifactorial in the setting of acute exacerbation of COPD with PNA and mild CHF decompensation continue systemic steroids(decreased to Solumedrol 40mg IV q12h), bronchodilator support IV abx f/u blood cultures continue IV diuresis monitor I/Os, fluid restriction diet, daily weights cardiology on board and consultation appreciated closely monitor O2 sat, goal O2 sat: 88-92% will continue to closely monitor bipap support as needed (2) Acute exacerbation of CHF (congestive heart failure) Current Visit: Yes Status: Acute Assessment and plan: as listed above Qualifiers: Congestive heart failure type: diastolic Qualified Code(s): I50.33 - Acute on chronic diastolic (congestive) heart failure (3) Acute exacerbation of chronic obstructive pulmonary disease (COPD) Current Visit: Yes Status: Acute Assessment and plan: as listed above (4) CAP (community acquired pneumonia) Current Visit: Yes Status: Acute Assessment and plan: IV abx Prelim blood and sputum culture reports No growth Qualifiers: Laterality: left Lung location: unspecified part of lung Qualified Code(s ): J18.9 - Pneumonia, unspecified organism (5) Anemia Current Visit: Yes Status: Chronic Assessment and plan: history of iron deficiency anemia H&H low but acceptable continue home dose of ferrous sulfate will continue to closely monitor Qualifiers: Anemia type: iron deficiency Iron deficiency anemia type: chronic blood loss Qualified Code(s): D50.0 - Iron deficiency anemia secondary to blood loss (chronic) (6) Anxiety and depression Current Visit: Yes Status: Chronic Assessment and plan: continue home meds (7) CKD (chronic kidney disease) stage 3, GFR 30-59 ml/min Current Visit: Yes Status: Chronic Assessment and plan: Creatinine improved from previous day and is at baseline will continue IV diuresis and closely monitor renal function (8) DVT prophylaxis Current Visit: No Status: Acute Assessment and plan: anticoagulated with Eliquis (9) HTN (hypertension) Current Visit: Yes Status: Chronic Assessment and plan: BP better controlled continue home dose of Clonidine, Hydralazine, Metoprolol continue Hydralazine 10mg IV q6h Prn SBP>160 continue to closely monitor Qualifiers: Hypertension type: essential hypertension Qualified Code(s): I10 - Essential (primary) hypertension (10) Sepsis Current Visit: Yes Status: Resolved Assessment and plan: likely secondary to underlying PNA Qualifiers: Sepsis type: sepsis due to unspecified organism Qualified Code(s): A41.9 - Sepsis, unspecified organism (11) Uncontrolled type 2 diabetes mellitus with insulin therapy Current Visit: Yes Status: Chronic Assessment and plan: continue basal and premeal insulin coverage high dose sliding scale insulin algorithm increased Levemir dose to 18units sQ qm and continue 50units SQ qhs based on her 24 hour insulin requirements monitor fingerstick and blood glucose will adjust insulin therapy as per her insulin requirements ADA diet (12) Morbid obesity with BMI of 40.0-44.9, adult Current Visit: Yes Status: Chronic (13) Atrial fibrillation Current Visit: Yes Status: Chronic Assessment and plan: Rate controlled with Metoprolol Anticoagulated with Eliquis Qualifiers: Atrial fibrillation type: paroxysmal Qualified Code(s): I48.0 - Paroxysmal atrial fibrillation - Subjective Interval history: Patient seen and examined at bedside. Sitting in chair eating lunch and saturating well on 2L NC. Reports of feeling better compared to previous day. Wound care consulted for knee wound - Constitutional Vitals: Temp Pulse Resp BP Pulse Ox 98.6 F 95 18 148/51 95 08/10/17 11:55 08/10/17 11:55 08/10/17 11:55 08/10/17 11:55 08/10/17 11:55 General appearance: Present: cooperative, A&O X 3, morbidly obese, pleasant, no acute distress, answers questions appropriately - Head Head exam: Present: atraumatic, normocephalic - Eye Eye exam: Present: conjuntiva pink, sclera anicteric - Respiratory Respiratory exam: Present: decreased breath sounds (equal air entry bilaterally , decreased inspiratory effort, no wheezing). Absent: respiratory distress - Cardiovascular Cardiovascular exam: Present: RRR, +S1, +S2. Absent: diastolic murmur, gallop, rubs, systolic murmur - GI/Abdominal GI/Abdominal exam: Present: normal bowel sounds, soft, no peritoneal signs. Absent: distended, tenderness - Extremities Exam Extremities exam: Present: pedal edema, warm, radial pulses palpable and symmetrical. Absent: calf tenderness - Neurological Exam Neurological exam: Present: alert, oriented X3 - Psychiatric Psychiatric exam: Present: normal affect, normal mood Internal Medicine: Result - Labs CBC & Chem 7: 08/10/17 05:42 08/10/17 05:42 Labs: Short CBC 08/10/17 Range/Units 05:42 WBC 17.0 H D (4.3-11.1) K/mcL Hgb 10.9 L (11.5-15.4) g/dL Hct 34.9 L (35.3-44.9) % Plt Count 301 (140-400) K/mcL Neutrophils # 14.7 H (1.6-8.9) K/mcL BMP 08/10/17 05:42 Sodium 138 Potassium 4.1 Chloride 99 Carbon Dioxide 29 BUN 49 H D Creatinine 1.69 H Glucose 90 Calcium 8.9 Liver Function 08/10/17 Range/Units 05:42 Total Bilirubin 0.5 (0.2-1.2) mg/dL AST 19 (5-34) Units/L ALT 17 (0-55) Units/L Alkaline Phosphatase 106 (38-126) Units/L Albumin 2.8 L (3.5-5.0) g/dL - ABG Interpretation ABG results: ABG ABG pH 7.37 pH Units (7.32-7.45) 08/09/17 06:57 ABG pCO2 43 mmHg (35-45) 08/09/17 06:57 ABG pO2 83 mmHg (85-104) L 08/09/17 06:57 ABG O2 Saturation 96 % (95-98) 08/09/17 06:57 PT/INR, D-dimer PT 19.5 Seconds (9.4-12.1) H 08/09/17 03:55 Consult Discharge Plan - Plan Additional Instructions: pcp requested Referrals: Geremias Ryan DO [Primary Care Provider] - 08/17/17 1:00 pm
[2017-08-10] MEDS: Cefepime HCl 2,000 MG in Water for inj. (sterile) 20 ML IVP SCH (17:50)
[2017-08-10] MEDS: ALPRAZolam 0.5 MG TABLET PO PRN (18:50)
[2017-08-11] MEDS: Ipratropium/Albuterol Neb 3 ML IH SCH ×4 (03:54→21:31)
[2017-08-11 06:58] LABS: Basophils % 0.1 %; Hematocrit 34.5 % (35.3-44.9); Hemoglobin 10.7 g/dL (11.5-15.4); Immature Granulocytes % 0.3 % (0-4); Lymphocytes # 0.5 K/mcL (0.6-4.6); Mean Corpuscular Hemoglobin 26.2 pg (28.0-33.3); Mean Corpuscular Volume 84.6 fL (83.0-100.0); Mean Platelet Volume 11.3 fL (9.4-12.4); Monocytes # 0.7 K/mcL (0.0-1.3); Monocytes % 5.7 %; Neutrophils # 10.7 K/mcL (1.6-8.9); Platelet Count 322 K/mcL (140-400); Red Blood Count 4.08 M/mcL (3.82-4.97); Red Cell Distribution Width 17.5 % (11.5-14.5); Segmented Neutrophils % 89.9 %
[2017-08-11 07:21] LABS: Magnesium 1.8 mg/dL (1.6-2.6); Phosphorous 4.6 mg/dL (2.3-4.7)
[2017-08-11 07:24] LABS: Albumin 2.7 g/dL (3.5-5.0); Albumin/Globulin Ratio 0.6 (1.1-2.2); Bilirubin,Total 0.6 mg/dL (0.2-1.2); Calcium 8.7 mg/dL (8.6-10.8); Globulin 4.6 g/dL (2.4-3.5); Potassium 3.7 mEq/L (3.5-4.5); Total Protein 7.3 g/dL (6.0-8.3)
[2017-08-11] MEDS: Insulin LISPRO 300 UNITS/3 ML VIAL SQ SCH ×7 (08:16→21:14)
[2017-08-11] MEDS: Insulin DETEMIR 100 UNIT/ML X5UNITS SQ SCH ×2 (08:48→21:13)
[2017-08-11] MEDS: ALPRAZolam 0.5 MG TABLET PO PRN ×2 (08:48→21:13)
[2017-08-11] MEDS: Aspirin Enteric Coated 81 MG Tablet PO SCH (08:48)
[2017-08-11] MEDS: MethylPREDNISolone 40 MG/ML VIAL IVP SCH (08:48)
[2017-08-11] MEDS: Sennosides/Docusate Sodium TABLET PO PRN ×2 (08:49→21:29)
[2017-08-11] MEDS: *HR* HYDROcodone/Acet 5/325 mg TABLET PO PRN ×2 (08:49→16:39)
[2017-08-11] MEDS: hydrALAZINE 25 MG TABLET PO SCH ×3 (08:49→21:13)
[2017-08-11] MEDS: APIXABAN 2.5 MG TABLET PO SCH ×2 (08:49→21:13)
[2017-08-11] MEDS: cloNIDine HCl 0.1 MG TABLET PO SCH ×3 (08:49→21:13)
[2017-08-11] MEDS ORDERED: Levofloxacin 750 MG/150 ML 750 MG/150 ML BAG IVPB SCH (09:00)
--- NOTE | 2017-08-11 13:07 | Podiatry Consult Note ---
Date of Encounter: 08/11/17 Time of Encounter: 12:30 Assessment and Plan (1) [place] Current visit: Yes Status: Acute Fluid filled lesion of right tibial region- hematoma vs abscess Palpable fluctuant mass to right tibial region Patient complains of severe pain however there is minimal warmth or erythema suggesting infectious process Spoke with patient about options, would like to have drained if possible to try to relieve some of the pain Sessions will plan for formal I&D of lesion tonight or in the morning depending on last time patient consumed food or drink today Patient verbalizes understanding and is agreeable to plan History of Present Illness HPI: Ms. Hitchcock is a 71 year old female who was admitted to [facility] for shortness of breath. Podiatry has been consulted regarding a suspected hematoma of the right tibial region. Patient reports she fell 1-2 weeks ago however there is a report for US on the computer on 07/28 reporting fall was 3 weeks prior to testing- patient states she hit her pak on the side of the bed. States the skin remained intact but swelling and pain occurred to the leg. Patient denies any drainage. Rates pain as her only pain to her whole body and reports it as 8/10. There is noted redness surrounding area of concern however patient states this has been red since a blister formed after her knee surgery (patient reports was a couple years ago) and it never returned to normal. Patient states that it is not related to the area of pain. Patient had an us completed on 07/28 which reported FINDINGS: Limited ultrasound evaluation of the area of clinical concern in the right lower extremity was performed. There is a complex fluid collection measuring 4.0 x 3.3 x 1.4 cm at the area of clinical concern. No significant internal flow on Doppler evaluation. The findings are consistent with the clinical history of fall and hematoma. Past Med Surg Social Fam HX - Past Medical History Medical history: arthritis, asthma, atrial fibrillation (Dx three weeks ago. Pt. followed by Dr. Ramirez), cancer, CHF, COPD, coronary artery disease, diabetes (Insulin controlled), hyperlipidemia, hypertension, myocardial infarction Psychiatric history: anxiety, depression - Past Surgical History Surgical History: angioplasty/stent (x2), cholecystectomy, colectomy (For colon cancer), coronary bypass (CABG) (Triple), other (Left nephrectomy for renal cell carcinoma, soft tissue sarcoma excision recently) - Social History Smoking Status: Never smoker Smokeless Tobacco Status: No Alcohol use: none Drug use: none - Family History Father Race: Family Member Ethnicity: Non- Living Status: Age at : 65 Cause of : CHF Hx Family Cardiac Disorders: Yes (CHF, CAD, DC) Brother Race: Family Member Ethnicity: Non- Living Status: Age at : 69 Cause of : Throat cancer Hx Family Cancer: Yes (Throat) Sister Race: Family Member Ethnicity: Non- Living Status: Age at : 62 Cause of : Emphysema Hx Family Respiratory Disorders: Yes (Emphysema) Hx Family Cancer: Yes (Breast) Mother Race: Family Member Ethnicity: Non- Living Status: Age at : 86 Cause of : Colon cancer Hx Family Cardiac Disorders: No Hx Family Respiratory Disorders: No Hx Family Cancer: Yes (Colon) Hx Family GI Disorders: No Hx Family Endocrine Disorder: No Hx Family Neuromuscular Disorders: No Hx Family Neurologic Disorders: No Hx Family HEENT Disorders: No Hx Family Autoimmune Disorders: No Medications and Allergies Aspirin [Adult Low Dose Aspirin EC] 81 mg PO DAILY 11/15/15 [History] Insulin ASPART [Novolog Flexpen] 15 unit SQ TIDWM 11/15/15 [History] Insulin Glargine,Hum.rec.anlog [Lantus Solostar] 50 unit SQ HS 11/15/15 [History ] Metoprolol Tartrate [Lopressor] 50 mg PO BID 11/15/15 [History] Ferrous Sulfate 325 mg PO DAILY 11/29/16 [History] Hydralazine HCl 100 mg PO TID 11/29/16 [History] [place]-3/Dha/Epa/Fish Oil [Fish Oil 1,000 mg Softgel] 1 cap PO DAILY 11/29/16 [ History] cloNIDine HCl [Clonidine HCl] 0.3 mg PO TID #90 tab 03/05/17 [Rx] Albuterol Sulfate [Proair Hfa] 1 puff IH Q4H PRN #1 inh 05/11/17 [Rx] Furosemide [Lasix] 40 mg PO DAILY #7 tablet 08/07/17 [Rx] Potassium Bicarbonate/Cit AC [Potassium 25 Meq Tablet Eff] 25 meq PO DAILY #7 tablet.eff 08/07/17 [Rx] ALPRAZolam [Xanax 0.5 MG Tablet] 0.5 mg PO BID PRN 08/08/17 [History] Apixaban [Eliquis] 2.5 mg PO BID 08/08/17 [History] Carvedilol 12.5 mg PO BID 08/08/17 [History] Pravastatin Sodium [Pravachol] 80 mg PO QPM 08/08/17 [History] 3 Allergy/AdvReac Type Severity Reaction Status Date / Time Sulfa (Sulfonamide Allergy Swelling Verified 08/08/17 14:45 Antibiotics) of Lip/Tongue/Throat All Systems Reviewed: A 10-system review of systems was performed and is negative for pertinent findings except as documented above in the HPI. Physical Exam - Constitutional Vitals: Temp Pulse Resp BP Pulse Ox 97.9 F 72 16 157/74 98 08/11/17 11:23 08/11/17 11:23 08/11/17 11:23 08/11/17 11:23 08/11/17 11:23 Exam: General Examination: CONSTITUTIONAL: Alert, oriented, in no acute distress, non-toxic. EXTREMITIES: CFT 3 seconds all toes. Edema +2 and pedal pulses palpable DP/PT SKIN: Dry, shiny skin, intact, thin, see below for further exam findings NEUROLOGIC: Intact sensation to light touch Area of concern is located mid right tibial region- There is a bullae type lesion noted, fluctuance noted with palpation. Area measuring [id number]. There is no warmth to area. Tenderness noted Fluid under skin appears to be dark in color. There is erythema surrounding wound however patient states this has been constant since her knee surgery. There is pitting edema to area however patient has pitting edema to BLE. Lesion is most consistent with a hematoma given clinical picture and history however abscess cannot be ruled out. Results - Labs Result Diagrams: 08/11/17 02:47 08/11/17 06:55 Labs: Abnormal lab results WBC 11.9 K/mcL (4.3-11.1) H 08/11/17 02:47 Hgb 10.7 g/dL (11.5-15.4) L 08/11/17 02:47 Hct 34.5 % (35.3-44.9) L 08/11/17 02:47 MCH 26.2 pg (28.0-33.3) L 08/11/17 02:47 MCHC 31.0 g/dL (31.6-35.5) L 08/11/17 02:47 RDW 17.5 % (11.5-14.5) H 08/11/17 02:47 Neutrophils # 10.7 K/mcL (1.6-8.9) H 08/11/17 02:47 Lymphocytes # 0.5 K/mcL (0.6-4.6) L 08/11/17 02:47 PT 19.5 Seconds (9.4-12.1) H 08/09/17 03:55 ABG pO2 83 mmHg (85-104) L 08/09/17 06:57 Chloride 97 mEq/L (98-109) L 08/11/17 06:55 Carbon Dioxide 31 mEq/L (19-29) H 08/11/17 06:55 BUN 57 mg/dL (7-20) H 08/11/17 06:55 Creatinine 1.67 mg/dL (0.57-1.11) H 08/11/17 06:55 Est GFR ( Amer) 36 (> 60) L 08/11/17 06:55 Est GFR (Non-Af Amer) 30 (> 60) L 08/11/17 06:55 BUN/Creatinine Ratio 34 (6-26) H 08/11/17 06:55 Glucose 123 mg/dL (70-99) H 08/11/17 06:55 POC Glucose 242 (58-89) H 08/10/17 18:55 Hemoglobin A1c 8.2 % (-5.6) H 08/09/17 03:55 Calculated Osmolality 307 (280-300) H 08/11/17 06:55 Troponin I 0.08 ng/mL (0-0.03) H* 08/09/17 03:55 B-Natriuretic Peptide 853 pg/mL (0-100) H 08/08/17 15:45 Albumin 2.7 g/dL (3.5-5.0) L 08/11/17 06:55 Globulin 4.6 g/dL (2.4-3.5) H 08/11/17 06:55 Albumin/Globulin Ratio 0.6 (1.1-2.2) L 08/11/17 06:55 HDL Cholesterol 29 mg/dL (40-59) L 08/09/17 03:55 H & H 08/11/17 Range/Units 02:47 Hgb 10.7 L (11.5-15.4) g/dL Hct 34.5 L (35.3-44.9) % All other labs normal. Consult Discharge Plan - Plan Additional Instructions: pcp requested Referrals: Geremias Ryan DO [Primary Care Provider] - 08/17/17 1:00 pm Milton Ashton MD [Partnered Physician] - 09/01/17 1:15 pm
--- NOTE | 2017-08-11 16:34 | Internal Med Progress Note ---
Date of Encounter: 08/11/17 Time of Encounter: 10:35 - Assessment and plan (1) Pneumonia Current Visit: Yes Status: Acute Assessment and plan: Blood cultures have been negative. We will de-escalate antibiotics. Continue Levaquin. Qualifiers: Pneumonia type: due to unspecified organism Laterality: right Lung location: lower lobe of lung Qualified Code(s): J18.1 - Lobar pneumonia, unspecified organism (2) Acute and chronic respiratory failure with hypoxia Current Visit: Yes Status: Acute Assessment and plan: On O2 supplementation with 3 L nasal cannula. Patient is on home oxygen at 2 L/ m. Will wean FiO2 as tolerated (3) Acute exacerbation of CHF (congestive heart failure) Current Visit: Yes Status: Acute Assessment and plan: We will transition to oral Lasix as patient is becoming uremic. Her creatinine remains stable. Qualifiers: Congestive heart failure type: diastolic Qualified Code(s): I50.33 - Acute on chronic diastolic (congestive) heart failure (4) Acute exacerbation of chronic obstructive pulmonary disease (COPD) Current Visit: Yes Status: Acute Assessment and plan: Taper steroids. Continue bronchodilators. Clinically getting better. (5) [place] Current Visit: Yes Status: Acute Assessment and plan: Right lower extremity. We will consult podiatry and follow their recommendations. (6) CAP (community acquired pneumonia) Current Visit: Yes Status: Acute Qualifiers: Laterality: left Lung location: unspecified part of lung Qualified Code(s ): J18.9 - Pneumonia, unspecified organism (7) CKD (chronic kidney disease) stage 3, GFR 30-59 ml/min Current Visit: Yes Status: Chronic Assessment and plan: Creatinine is at baseline. Transition to oral Lasix. (8) Coronary artery disease Current Visit: Yes Status: Chronic Assessment and plan: continue aspirin, Lipitor and beta amos Qualifiers: Coronary Disease-Associated Artery/Lesion type: bypass graft [place] vs. transplanted heart: [place] heart Associated angina: without angina Qualified Code(s): I25.810 - Atherosclerosis of coronary artery bypass graft(s) without angina pectoris (9) Diabetes mellitus Current Visit: Yes Status: Chronic Assessment and plan: Blood sugars remain elevated but patient having lower blood sugars in the morning. We will decrease evening dose of Levemir. Also we will be decreasing steroid dose so we will continue current nutritional plus sliding scale for today. We will make adjustments tomorrow depending on her blood sugars. 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 Qualifiers: Sepsis type: sepsis due to unspecified organism Qualified Code(s): A41.9 - Sepsis, unspecified organism (11) HTN (hypertension) Current Visit: Yes Status: Chronic Assessment and plan: Remains uncontrolled. Continue clonidine, metoprolol and hydralazine. We will increase metoprolol dosage if patient able to tolerate Qualifiers: Hypertension type: essential hypertension Qualified Code(s): I10 - Essential (primary) hypertension (12) Anxiety and depression Current Visit: Yes Status: Chronic Assessment and plan: Continue Xanax (13) Atrial fibrillation Current Visit: Yes Status: Chronic Assessment and plan: Rate controlled. On anticoagulation with Eliquis. Qualifiers: Atrial fibrillation type: paroxysmal Qualified Code(s): I48.0 - Paroxysmal atrial fibrillation - Subjective Interval history: Patient feels better today. She does complain of pain in her right lower extremity just above her ankle where she has a small mass that she developed after her fall. Her shortness of breath is improving. Denies any chest pain. No palpitations. - Constitutional Vitals: Temp Pulse Resp BP Pulse Ox 98.1 F 77 16 175/70 98 08/11/17 16:11 08/11/17 16:11 08/11/17 16:11 08/11/17 16:11 08/11/17 16:11 General appearance: Present: cooperative, A&O X 3, morbidly obese, pleasant, no acute distress, answers questions appropriately - Neck Neck exam general surgery: Present: supple, trachea midline. Absent: lymphadenopathy - Respiratory Respiratory exam: Present: prolonged expiratory phase, wheezes. Absent: accessory muscle use, rales, rhonchi - Cardiovascular Cardiovascular exam: Present: irregular rhythm, +S1, +S2. Absent: diastolic murmur, gallop, rubs, systolic murmur - GI/Abdominal GI/Abdominal exam: Present: normal bowel sounds, soft, no peritoneal signs. Absent: distended, tenderness - Extremities Exam Extremities exam: Present: pedal edema, warm, radial pulses palpable and symmetrical. Absent: calf tenderness, cyanotic Additional comments: Fluctuant mass noted on the right anterior tibial surface between the mid and lower thirds of the leg. Measures about 5 cm in diameter. Tender to palpation there is surrounding erythema. Patient does have pitting pedal edema bilaterally - Neurological Exam Neurological exam: Present: CN II-XII intact, oriented X3, no focal deficits. Absent: facial droop, speech deficit - Skin Skin exam: Present: dry, intact Internal Medicine: Result - Labs CBC & Chem 7: 08/11/17 02:47 08/11/17 06:55 Labs: Short CBC 08/11/17 Range/Units 02:47 WBC 11.9 H (4.3-11.1) K/mcL Hgb 10.7 L (11.5-15.4) g/dL Hct 34.5 L (35.3-44.9) % Plt Count 322 (140-400) K/mcL Neutrophils # 10.7 H (1.6-8.9) K/mcL BMP 08/11/17 06:55 Sodium 140 Potassium 3.7 Chloride 97 L Carbon Dioxide 31 H BUN 57 H Creatinine 1.67 H Glucose 123 H Calcium 8.7 Liver Function 08/11/17 Range/Units 06:55 Total Bilirubin 0.6 (0.2-1.2) mg/dL AST 20 (5-34) Units/L ALT 16 (0-55) Units/L Alkaline Phosphatase 103 (38-126) Units/L Albumin 2.7 L (3.5-5.0) g/dL - ABG Interpretation ABG results: ABG ABG pH 7.37 pH Units (7.32-7.45) 08/09/17 06:57 ABG pCO2 43 mmHg (35-45) 08/09/17 06:57 ABG pO2 83 mmHg (85-104) L 08/09/17 06:57 ABG O2 Saturation 96 % (95-98) 08/09/17 06:57 PT/INR, D-dimer PT 19.5 Seconds (9.4-12.1) H 08/09/17 03:55 Consult Discharge Plan - Plan Additional Instructions: pcp requested Referrals: Geremias Ryan DO [Primary Care Provider] - 08/17/17 1:00 pm Milton Ashton MD [Partnered Physician] - 09/01/17 1:15 pm
[2017-08-12] MEDS: Ipratropium/Albuterol Neb 3 ML IH SCH ×4 (03:48→21:25)
[2017-08-12] MEDS: Insulin LISPRO 300 UNITS/3 ML VIAL SQ SCH ×7 (07:54→22:01)
[2017-08-12] MEDS: predniSONE 20 MG TABLET PO SCH (07:55)
[2017-08-12] MEDS: cloNIDine HCl 0.1 MG TABLET PO SCH ×3 (07:55→21:57)
[2017-08-12] MEDS: *HR* HYDROcodone/Acet 5/325 mg TABLET PO PRN ×2 (07:56→21:57)
[2017-08-12] MEDS: hydrALAZINE 25 MG TABLET PO SCH ×3 (07:58→21:56)
[2017-08-12 07:59] LABS: Calcium 8.9 mg/dL (8.6-10.8); Potassium 3.7 mEq/L (3.5-4.5)
[2017-08-12] MEDS: Insulin DETEMIR 100 UNIT/ML X5UNITS SQ SCH ×2 (07:59→21:57)
[2017-08-12 08:02] LABS: Basophils % 0.1 %; Eosinophils % 0.1 %; Hematocrit 36.8 % (35.3-44.9); Immature Granulocytes % 0.5 % (0-4); Lymphocytes # 1.2 K/mcL (0.6-4.6); Lymphocytes % 8.5 %; Mean Corpuscular HGB Conc 29.9 g/dL (31.6-35.5); Mean Corpuscular Hemoglobin 25.6 pg (28.0-33.3); Mean Corpuscular Volume 85.8 fL (83.0-100.0); Monocytes # 1.9 K/mcL (0.0-1.3); Monocytes % 13.2 %; Neutrophils # 11.2 K/mcL (1.6-8.9); Platelet Count 281 K/mcL (140-400); Red Blood Count 4.29 M/mcL (3.82-4.97); Red Cell Distribution Width 17.2 % (11.5-14.5); Segmented Neutrophils % 77.6 %
[2017-08-12] MEDS ORDERED: Furosemide 40 MG TABLET PO SCH (09:00)
[2017-08-12] MEDS: ALPRAZolam 0.5 MG TABLET PO PRN (15:11)
[2017-08-12] MEDS ORDERED: Ringers Solution, Lactated 1,000 ML ONE (15:46)
[2017-08-12] MEDS ORDERED: Albuterol 2.5 MG/3 ML NEBULIZER ONE (15:46)
--- NOTE | 2017-08-12 16:27 | Internal Med Progress Note ---
Date of Encounter: 08/12/17 Time of Encounter: 12:10 - Assessment and plan (1) Pneumonia Current Visit: Yes Status: Acute Assessment and plan: Sputum culture positive for staph aureus sensitive concerning for MRSA. Placed patient on Zyvox. Clinically, she is doing better overall. On 2 L nasal cannula O2 supplementation. Qualifiers: Pneumonia type: due to methicillin-resistant Staphylococcus aureus (MRSA) Laterality: right Lung location: lower lobe of lung Qualified Code(s): J15.212 - Pneumonia due to Methicillin resistant Staphylococcus aureus (2) Acute and chronic respiratory failure with hypoxia Current Visit: Yes Status: Acute Assessment and plan: Improving. Back on 2 L O2 supplementation (3) Acute exacerbation of CHF (congestive heart failure) Current Visit: Yes Status: Acute Assessment and plan: Improving. On Lasix 40 mg by mouth daily. Renal function appears to be stabilizing. We will continue to monitor renal function closely. Qualifiers: Congestive heart failure type: diastolic Qualified Code(s): I50.33 - Acute on chronic diastolic (congestive) heart failure (4) Acute exacerbation of chronic obstructive pulmonary disease (COPD) Current Visit: Yes Status: Acute Assessment and plan: On bronchodilators and steroids. Improving overall. (5) [place] Current Visit: Yes Status: Acute Assessment and plan: Podiatry has evaluated patient. Recommend incision and drainage. This will be done later today. (6) CAP (community acquired pneumonia) Current Visit: Yes Status: Acute Qualifiers: Laterality: left Lung location: unspecified part of lung Qualified Code(s ): J18.9 - Pneumonia, unspecified organism (7) CKD (chronic kidney disease) stage 3, GFR 30-59 ml/min Current Visit: Yes Status: Chronic Assessment and plan: Creatinine 1.7 to today. Due to Lasix use. Will monitor kidney function closely. (8) Coronary artery disease Current Visit: Yes Status: Chronic Assessment and plan: Continue aspirin, statin, beta amos Qualifiers: Coronary Disease-Associated Artery/Lesion type: bypass graft [place] vs. transplanted heart: [place] heart Associated angina: without angina Qualified Code(s): I25.810 - Atherosclerosis of coronary artery bypass graft(s) without angina pectoris (9) Diabetes mellitus Current Visit: Yes Status: Chronic Assessment and plan: Blood sugars were elevated yesterday evening but has since improved. Will continue current sliding scale. We will make adjustments accordingly. 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 Continue current management with clonidine, hydralazine and metoprolol. Qualifiers: Hypertension type: essential hypertension Qualified Code(s): I10 - Essential (primary) hypertension (12) Anxiety and depression Current Visit: Yes Status: Chronic Assessment and plan: Continue Xanax (13) Atrial fibrillation Current Visit: Yes Status: Chronic Assessment and plan: Sinus rhythm at this time. On anticoagulation with Eliquis Qualifiers: Atrial fibrillation type: paroxysmal Qualified Code(s): I48.0 - Paroxysmal atrial fibrillation - Subjective Interval history: Patient is sitting up in chair. Feeling better overall but continues to have pain and tenderness at site of swelling in the right leg. Did not undergo surgery yesterday evening. Is scheduled for surgery later today. - Constitutional Vitals: Temp Pulse Resp BP Pulse Ox 98.0 F 79 18 163/75 98 08/12/17 11:43 08/12/17 11:43 08/12/17 11:43 08/12/17 11:43 08/12/17 11:43 General appearance: Present: cooperative, A&O X 3, morbidly obese, pleasant, no acute distress, answers questions appropriately - Respiratory Respiratory exam: Present: prolonged expiratory phase, wheezes (Minimal end expiratory wheezing bilaterally). Absent: accessory muscle use, rales, rhonchi - Cardiovascular Cardiovascular exam: Present: RRR, +S1, +S2. Absent: diastolic murmur, gallop, rubs, systolic murmur - GI/Abdominal GI/Abdominal exam: Present: normal bowel sounds, soft, no peritoneal signs. Absent: distended, tenderness - Extremities Exam Extremities exam: Present: warm, radial pulses palpable and symmetrical. Absent : calf tenderness, cyanotic, pedal edema Additional comments: Swelling over the right anterior tibial surface in the lower third of the leg just above the ankle. Tender to palpation. Does appear to have decreased in size compared to yesterday. - Neurological Exam Neurological exam: Present: alert, oriented X3, no focal deficits. Absent: facial droop, speech deficit - Skin Skin exam: Present: dry, intact Internal Medicine: Result - Labs CBC & Chem 7: 08/12/17 07:27 08/12/17 07:27 Labs: Short CBC 08/12/17 Range/Units 07:27 WBC 14.4 H (4.3-11.1) K/mcL Hgb 11.0 L (11.5-15.4) g/dL Hct 36.8 (35.3-44.9) % Plt Count 281 (140-400) K/mcL Neutrophils # 11.2 H (1.6-8.9) K/mcL BMP 08/12/17 07:27 Sodium 140 Potassium 3.7 Chloride 99 Carbon Dioxide 31 H BUN 60 H Creatinine 1.72 H Glucose 146 H Calcium 8.9 - ABG Interpretation ABG results: ABG ABG pH 7.37 pH Units (7.32-7.45) 08/09/17 06:57 ABG pCO2 43 mmHg (35-45) 08/09/17 06:57 ABG pO2 83 mmHg (85-104) L 08/09/17 06:57 ABG O2 Saturation 96 % (95-98) 08/09/17 06:57 PT/INR, D-dimer PT 19.5 Seconds (9.4-12.1) H 08/09/17 03:55 Consult Discharge Plan - Plan Additional Instructions: pcp requested Referrals: Geremias Ryan DO [Primary Care Provider] - 08/17/17 1:00 pm Milton Ashton MD [Partnered Physician] - 09/01/17 1:15 pm
[2017-08-12] MEDS: APIXABAN 2.5 MG TABLET PO SCH ×2 (18:01→21:57)
[2017-08-12] MEDS: Linezolid 600 MG TABLET PO SCH ×2 (18:01→21:56)
[2017-08-12] MEDS: Aspirin Enteric Coated 81 MG Tablet PO SCH (18:01)
--- NOTE | 2017-08-12 18:40 | Anesthesia Evaluation PreOp ---
Date of Encounter: 08/12/17 Time of Encounter: 18:38 - Past History Planned Operation: I and D R leg Cardiac History: NE, CHF (acute exacerbation, EV/EV echocardiogram Impressions: LVEF 50-55%. Mild to moderate concentric left ventricular hypertrophy. Moderate left ventricular diastolic dysfunction with elevated filling pressures. Severely dilated left atrium. Mildly dilated RV with moderate reduction in function. Mild-moderate mitral regurgitation. Moderate-severe tricuspid regurgitation. Mild pulmonic regurgitation. 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 (anxiety, depression) Other Medical History: Renal (CKD stage III), Diabetes Type II, Other (sepsis) Anesthesia History: No Prior Anesthetic Complications, Past Anesthesia Alcohol Use: none Drug use: none Medications and Allergies Aspirin [Adult Low Dose Aspirin EC] 81 mg PO DAILY 11/15/15 [History] Insulin ASPART [Novolog Flexpen] 15 unit SQ TIDWM 11/15/15 [History] Insulin Glargine,Hum.rec.anlog [Lantus Solostar] 50 unit SQ HS 11/15/15 [History ] Metoprolol Tartrate [Lopressor] 50 mg PO BID 11/15/15 [History] Ferrous Sulfate 325 mg PO DAILY 11/29/16 [History] Hydralazine HCl 100 mg PO TID 11/29/16 [History] [place]-3/Dha/Epa/Fish Oil [Fish Oil 1,000 mg Softgel] 1 cap PO DAILY 11/29/16 [ History] cloNIDine HCl [Clonidine HCl] 0.3 mg PO TID #90 tab 03/05/17 [Rx] Albuterol Sulfate [Proair Hfa] 1 puff IH Q4H PRN #1 inh 05/11/17 [Rx] Furosemide [Lasix] 40 mg PO DAILY #7 tablet 08/07/17 [Rx] Potassium Bicarbonate/Cit AC [Potassium 25 Meq Tablet Eff] 25 meq PO DAILY #7 tablet.eff 08/07/17 [Rx] ALPRAZolam [Xanax 0.5 MG Tablet] 0.5 mg PO BID PRN 08/08/17 [History] Apixaban [Eliquis] 2.5 mg PO BID 08/08/17 [History] Carvedilol 12.5 mg PO BID 08/08/17 [History] Pravastatin Sodium [Pravachol] 80 mg PO QPM 08/08/17 [History] 3 Allergy/AdvReac Type Severity Reaction Status Date / Time Sulfa (Sulfonamide Allergy Swelling Verified 08/08/17 14:45 Antibiotics) of Lip/Tongue/Throat - Meds/Allergy Pre-op Review Medications Reviewed: Yes Allergies Reviewed: Yes Beta Blockers on Current Med List: Yes If Beta Blockers taken, Date/Time (Last Dose taken): 716am today Anesthesia Results - Labs 08/12/17 07:27 08/12/17 07:27 - Imaging EKG: image reviewed (Afib) Anesthesia Exam Vital Signs/O2 Sat, Most Current Temp Pulse Resp BP Pulse Ox 98.0 F 79 18 163/75 98 08/12/17 11:43 08/12/17 11:43 08/12/17 11:43 08/12/17 11:43 08/12/17 11:43 Height: 1.52m Weight: 91kg - HEENT Pupil (Motor): Pupils equal, EOMI - CABLE SPLICER ASSISTANT LOC: Oriented CABLE SPLICER ASSISTANT Motor: Normal RUE, Normal LUE, Normal RLE, Normal LLE, Normal Face CABLE SPLICER ASSISTANT Sensory: Normal: RUE, LUE, RLE, LLE, Face - Cardiac Rhythm: Irregular - Pulmonary Breath Sounds: bilateral Rhonchi Respiratory Effort: Symmetrical Anesthesia Assess/Plan ASA Score: 4 Modified [place] Scale for Level of Consciousness: Cooperative, oriented, and tranquil Anesthetic Plan: General (r/b/a discussed, including post op respiratory failure , intubation and ICU stay) Monitoring Plan: Standard Monitors Recovery Plan: PACU
[2017-08-12] MEDS ORDERED: Lidocaine TOPICAL Soln 50 ML BOTTLE ONE (19:21)
[2017-08-12] MEDS ORDERED: Lidocaine Jelly 6ml 1 APPL/6 ML JEL.PF.APP ONE (19:21)
[2017-08-12] MEDS ORDERED: Bupivacaine/Clonidine Syringe 1 EACH SYRINGE ONE (19:22)
[2017-08-12] MEDS ORDERED: *HR* Propofol 200 MG/20 ML VIAL IVP ONE (19:26)
[2017-08-12] MEDS ORDERED: *HR* FentaNYL (PF) 100 MCG/2 ML VIAL ONE (19:26)
[2017-08-12] MEDS ORDERED: Lidocaine -MPF 2% 2 ML VIAL ONE (19:26)
--- NOTE | 2017-08-12 19:32 | Podiatry Progress Note ---
Date of Encounter: 08/12/17 Time of Encounter: 12:30 - Assessment and Plan (1) Hematoma Current Visit: Yes Status: Acute Patient was instructed that due to her pain the site may be getting infected. Patient relates that she would like it removed and we instructed her that this is possible and would be beneficial in the event that the site has purulence. The procedure was discussed at length with the patient and her family. The risks were reviewed in depth. Subjective Principal diagnosis: infection vs hematoma Interval history: Right leg pain and hematoma. Patient relates that it has been getting worse over the last few days. Objective - Vital Signs Vital Signs: Vital Signs Temp Pulse Resp BP Pulse Ox 08/12/17 11:43 98.0 F 79 18 163/75 98 08/12/17 10:46 16 95 08/12/17 08:10 100 08/12/17 07:37 98.0 F 63 17 142/75 100 08/12/17 05:00 98 F 59 18 139/70 99 08/11/17 21:32 18 96 Intake and Output 08/12/17 08/12/17 08/12/17 07:59 15:59 23:59 Intake Total 0 / 0 0 / 0 Output Total 0 / 0 100 / 100 Balance 0 / 0 -100 / -100 Intake: Oral 0 / 0 0 / 0 Output: Urine 0 / 0 100 / 100 Other: # Voids 1 # Urine Diapers 1 Weight 91.3 kg 91.7 kg Blood Glucose* 137 Patient Weight 08/12/17 23:59 Weight 91.7 kg - Exam Exam: Right leg hematoma vs abscess noted, pain with palpation, neurovascular status intact. Pain with palpation to the site, no open lesions on the leg. - Lab Result Diagrams: 08/12/17 07:27 08/12/17 07:27 Labs: Abnormal lab results WBC 14.4 K/mcL (4.3-11.1) H 08/12/17 07:27 Hgb 11.0 g/dL (11.5-15.4) L 08/12/17 07:27 MCH 25.6 pg (28.0-33.3) L 08/12/17 07:27 MCHC 29.9 g/dL (31.6-35.5) L 08/12/17 07:27 RDW 17.2 % (11.5-14.5) H 08/12/17 07:27 Neutrophils # 11.2 K/mcL (1.6-8.9) H 08/12/17 07:27 Monocytes # 1.9 K/mcL (0.0-1.3) H 08/12/17 07:27 PT 19.5 Seconds (9.4-12.1) H 08/09/17 03:55 ABG pO2 83 mmHg (85-104) L 08/09/17 06:57 Carbon Dioxide 31 mEq/L (19-29) H 08/12/17 07:27 BUN 60 mg/dL (7-20) H 08/12/17 07:27 Creatinine 1.72 mg/dL (0.57-1.11) H 08/12/17 07:27 Est GFR ( Amer) 35 (> 60) L 08/12/17 07:27 Est GFR (Non-Af Amer) 29 (> 60) L 08/12/17 07:27 BUN/Creatinine Ratio 35 (6-26) H 08/12/17 07:27 Glucose 146 mg/dL (70-99) H 08/12/17 07:27 POC Glucose 106 (58-89) H 08/12/17 11:48 Hemoglobin A1c 8.2 % (-5.6) H 08/09/17 03:55 Calculated Osmolality 310 (280-300) H 08/12/17 07:27 Troponin I 0.08 ng/mL (0-0.03) H* 08/09/17 03:55 B-Natriuretic Peptide 853 pg/mL (0-100) H 08/08/17 15:45 Albumin 2.7 g/dL (3.5-5.0) L 08/11/17 06:55 Globulin 4.6 g/dL (2.4-3.5) H 08/11/17 06:55 Albumin/Globulin Ratio 0.6 (1.1-2.2) L 08/11/17 06:55 HDL Cholesterol 29 mg/dL (40-59) L 08/09/17 03:55 Microbiology, Last 48 Hours 08/10/17 08:15 Sputum Culture - Preliminary Sputum Staphylococcus aureus Consult Discharge Plan - Plan Additional Instructions: pcp requested Referrals: Geremias Ryan DO [Primary Care Provider] - 08/17/17 1:00 pm Milton Ashton MD [Partnered Physician] - 09/01/17 1:15 pm
--- NOTE | 2017-08-12 20:20 | Anesthesia Evaluation Post Op ---
Date of Encounter: 08/12/17 Time of Encounter: 20:25 - Vital Signs Vital Signs: Vital Signs/O2 Sat/Glucose, Most Current Temp Pulse Resp BP Pulse Ox 08/12/17 20:07 97.7 F 77 16 164/83 94 - Lungs Lungs: Clear Ascult./Percussion - Airway Airway: Non-obstructed - Cardiovascular Regular Rate - Mental Status Mental Status: Alert & Oriented, Answers Appropriately - Pain Pain Scale: 0 - Nausea Vomiting Nausea Vomiting: Not Present - Hydration Hydration: Ice chips - Discharge PostOp Status: Transfer Patient to floor
--- NOTE | 2017-08-12 22:28 | Operative Note ---
Date of procedure: 08/12/17 Pre-op diagnosis: Right leg hematoma Post-op diagnosis: same Procedure: Evacuation of right leg hematoma Complications: None Anesthesia: TL Surgeon: Danyel Mccarty Estimated blood loss (cc): 10 Specimen: Cultures obtained Condition: stable Disposition: PACU Procedure in Detail: The patient was administered IV antibiotics preoperatively. The patient was transported to the operative room and kept on the hospital bed. Following very minimal anesthesia the extremity was scrubbed prepped and draped in the usual aseptic fashion. A timeout was performed. The site was localized with 1% plain lidocaine. An incision was made on the anterior distal right leg and deepened through subcutaneous tissue with care taken to identify and retract all vital neurovascular structures. A 2 cm long incision was made over the hematoma site. Approximately 30 mL of hematoma was expressed. The site was cultured but appeared to be significantly clean. The incision site was irrigated with copious amounts of normal saline and closed in a layered fashion. A dry sterile dressing was applied. The patient tolerated the procedure and anesthesia well and was transported to the recovery room with vital signs stable and vascular status intact to both feet. The patient will be readmitted to the floor per anesthesia. The patient will keep the dressings intact until I see her tomorrow. The patient will minimize weightbearing.
[2017-08-13] MEDS: *HR* HYDROcodone/Acet 5/325 mg TABLET PO PRN ×3 (02:12→15:25)
[2017-08-13] MEDS: Ipratropium/Albuterol Neb 3 ML IH SCH ×4 (03:53→21:27)
[2017-08-13 04:58] LABS: Hematocrit 35.1 % (35.3-44.9); Hemoglobin 10.7 g/dL (11.5-15.4); Mean Corpuscular HGB Conc 30.5 g/dL (31.6-35.5); Mean Corpuscular Hemoglobin 26.2 pg (28.0-33.3); Mean Platelet Volume 11.4 fL (9.4-12.4); Platelet Count 273 K/mcL (140-400); Red Blood Count 4.08 M/mcL (3.82-4.97); Segmented Neutrophils % 73.6 %
[2017-08-13 04:59] LABS: Basophils % 0.1 %; Eosinophils % 0.1 %; Immature Granulocytes % 0.5 % (0-4); Lymphocytes # 1.3 K/mcL (0.6-4.6); Lymphocytes % 11.2 %; Monocytes # 1.7 K/mcL (0.0-1.3); Monocytes % 14.5 %; Neutrophils # 8.7 K/mcL (1.6-8.9)
[2017-08-13 05:04] LABS: Calcium 8.8 mg/dL (8.6-10.8)
[2017-08-13] MEDS ORDERED: levoFLOXacin 750 MG TABLET PO SCH (09:00)
[2017-08-13] MEDS: hydrALAZINE 25 MG TABLET PO SCH ×3 (09:02→22:09)
[2017-08-13] MEDS: Sennosides/Docusate Sodium TABLET PO PRN (09:02)
[2017-08-13] MEDS: cloNIDine HCl 0.1 MG TABLET PO SCH ×3 (09:02→22:10)
[2017-08-13] MEDS: Aspirin Enteric Coated 81 MG Tablet PO SCH (09:03)
[2017-08-13] MEDS: APIXABAN 2.5 MG TABLET PO SCH ×2 (09:03→22:09)
[2017-08-13] MEDS: predniSONE 20 MG TABLET PO SCH (09:03)
[2017-08-13] MEDS: Linezolid 600 MG TABLET PO SCH ×2 (09:03→22:10)
[2017-08-13] MEDS: Insulin LISPRO 300 UNITS/3 ML VIAL SQ SCH ×7 (09:04→21:00)
[2017-08-13] MEDS: Insulin DETEMIR 100 UNIT/ML X5UNITS SQ SCH ×2 (09:04→22:10)
--- NOTE | 2017-08-13 12:01 | Internal Med Progress Note ---
Date of Encounter: 08/13/17 Time of Encounter: 11:10 - Assessment and plan (1) Pneumonia Current Visit: Yes Status: Acute Assessment and plan: Continue Zyvox. WBC count is improving. Sputum culture positive for MRSA. Qualifiers: Pneumonia type: due to methicillin-resistant Staphylococcus aureus (MRSA) Laterality: right Lung location: lower lobe of lung Qualified Code(s): J15.212 - Pneumonia due to Methicillin resistant Staphylococcus aureus (2) Acute and chronic respiratory failure with hypoxia Current Visit: Yes Status: Acute Assessment and plan: Patient currently on 3 L nasal cannula. Due to underlying pneumonia, COPD and CHF. (3) Acute exacerbation of CHF (congestive heart failure) Current Visit: Yes Status: Acute Assessment and plan: Pedal edema is improving bilaterally. Renal function worsened today. We will hold Lasix at this time Qualifiers: Congestive heart failure type: diastolic Qualified Code(s): I50.33 - Acute on chronic diastolic (congestive) heart failure (4) Acute exacerbation of chronic obstructive pulmonary disease (COPD) Current Visit: Yes Status: Acute Assessment and plan: Improving. Wheezing much improved today. Continue prednisone. Continue bronchodilators. (5) CAP (community acquired pneumonia) Current Visit: Yes Status: Acute Qualifiers: Laterality: left Lung location: unspecified part of lung Qualified Code(s ): J18.9 - Pneumonia, unspecified organism (6) CKD (chronic kidney disease) stage 3, GFR 30-59 ml/min Current Visit: Yes Status: Chronic Assessment and plan: With acute worsening of renal function. Creatinine 1.77. BUN 61. Likely due to Lasix use. Will hold Lasix for now. (7) Coronary artery disease Current Visit: Yes Status: Chronic Qualifiers: Coronary Disease-Associated Artery/Lesion type: bypass graft [place] vs. transplanted heart: [place] heart Associated angina: without angina Qualified Code(s): I25.810 - Atherosclerosis of coronary artery bypass graft(s) without angina pectoris (8) Diabetes mellitus Current Visit: Yes Status: Chronic Assessment and plan: Currently well controlled. Will continue to monitor blood sugars and adjust insulin regimen accordingly Qualifiers: Diabetes mellitus type: type 2 Diabetes mellitus complication status: with hyperglycemia Diabetes mellitus continuous churn buttermaker insulin use: with detention use Qualified Code(s): E11.65 - Type 2 diabetes mellitus with hyperglycemia; Z79.4 - continuous churn buttermaker (current) use of insulin (9) Sepsis Current Visit: Yes Status: Resolved Qualifiers: Sepsis type: sepsis due to unspecified organism Qualified Code(s): A41.9 - Sepsis, unspecified organism (10) HTN (hypertension) Current Visit: Yes Status: Chronic Assessment and plan: Blood pressure elevated this morning. Will increase metoprolol dosage. Monitor blood pressure closely Qualifiers: Hypertension type: essential hypertension Qualified Code(s): I10 - Essential (primary) hypertension (11) Anxiety and depression Current Visit: Yes Status: Chronic Assessment and plan: Continue Xanax as needed (12) Atrial fibrillation Current Visit: Yes Status: Chronic Assessment and plan: Rate controlled. On anticoagulation with Eliquis Qualifiers: Atrial fibrillation type: paroxysmal Qualified Code(s): I48.0 - Paroxysmal atrial fibrillation - Subjective Interval history: Patient is sitting up in bed. Reports pain and anxiety related to her right leg wound. She underwent surgery yesterday with evacuation of right leg hematoma yesterday evening. Tolerated procedure well. - Constitutional Vitals: Temp Pulse Resp BP Pulse Ox 98.1 F 76 15 175/83 98 08/13/17 11:37 08/13/17 11:37 08/13/17 11:37 08/13/17 11:37 08/13/17 11:37 General appearance: Present: cooperative, A&O X 3, morbidly obese, pleasant, no acute distress, answers questions appropriately - Neck Neck exam general surgery: Present: supple, trachea midline. Absent: lymphadenopathy - Respiratory Respiratory exam: Present: prolonged expiratory phase, wheezes (Mild end- expiratory). Absent: accessory muscle use, rales, rhonchi - Cardiovascular Cardiovascular exam: Present: RRR, +S1, +S2. Absent: diastolic murmur, gallop, rubs, systolic murmur - GI/Abdominal GI/Abdominal exam: Present: normal bowel sounds, soft, no peritoneal signs. Absent: distended, tenderness - Extremities Exam Extremities exam: Present: pedal edema, warm, radial pulses palpable and symmetrical. Absent: calf tenderness, cyanotic Additional comments: Right lower extremity bandaged. - Neurological Exam Neurological exam: Present: CN II-XII intact, oriented X3, no focal deficits. Absent: facial droop, speech deficit - Skin Skin exam: Present: dry Internal Medicine: Result - Labs CBC & Chem 7: 08/13/17 04:17 08/13/17 04:17 Labs: Short CBC 08/13/17 Range/Units 04:17 WBC 11.8 H (4.3-11.1) K/mcL Hgb 10.7 L (11.5-15.4) g/dL Hct 35.1 L (35.3-44.9) % Plt Count 273 (140-400) K/mcL Neutrophils # 8.7 (1.6-8.9) K/mcL BMP 08/13/17 04:17 Sodium 140 Potassium 4.0 Chloride 100 Carbon Dioxide 31 H BUN 61 H Creatinine 1.77 H Glucose 227 H Calcium 8.8 - ABG Interpretation ABG results: ABG ABG pH 7.37 pH Units (7.32-7.45) 08/09/17 06:57 ABG pCO2 43 mmHg (35-45) 08/09/17 06:57 ABG pO2 83 mmHg (85-104) L 08/09/17 06:57 ABG O2 Saturation 96 % (95-98) 08/09/17 06:57 PT/INR, D-dimer PT 19.5 Seconds (9.4-12.1) H 08/09/17 03:55 Consult Discharge Plan - Plan Additional Instructions: pcp requested Referrals: Geremias Ryan DO [Primary Care Provider] - 08/17/17 1:00 pm Milton Ashton MD [Partnered Physician] - 09/01/17 1:15 pm
[2017-08-13] MEDS ORDERED: Insulin DETEMIR 100 UNIT/ML X5UNITS SQ SCH (12:15)
[2017-08-13] MEDS: ALPRAZolam 0.5 MG TABLET PO PRN (12:43)
[2017-08-13] MEDS ORDERED: ALPRAZolam 1 MG TABLET PO ONE (18:38)
[2017-08-13] MEDS ORDERED: *HR* Morphine 2 MG/ML SYRINGE IVP PRN (18:39)
[2017-08-14] MEDS: Ipratropium/Albuterol Neb 3 ML IH SCH ×4 (03:37→22:57)
[2017-08-14 05:49] LABS: Basophils % 0.1 %; Eosinophils % 0.1 %; Hematocrit 35.3 % (35.3-44.9); Hemoglobin 10.6 g/dL (11.5-15.4); Immature Granulocytes % 0.5 % (0-4); Lymphocytes # 1.2 K/mcL (0.6-4.6); Mean Corpuscular Hemoglobin 26.1 pg (28.0-33.3); Mean Corpuscular Volume 86.9 fL (83.0-100.0); Mean Platelet Volume 11.5 fL (9.4-12.4); Monocytes # 1.2 K/mcL (0.0-1.3); Monocytes % 13.2 %; Neutrophils # 6.4 K/mcL (1.6-8.9); Platelet Count 224 K/mcL (140-400); Red Blood Count 4.06 M/mcL (3.82-4.97); Red Cell Distribution Width 16.6 % (11.5-14.5); Segmented Neutrophils % 72.1 %
[2017-08-14 06:06] LABS: Calcium 9.1 mg/dL (8.6-10.8); Potassium 4.4 mEq/L (3.5-4.5)
[2017-08-14] MEDS: hydrALAZINE 25 MG TABLET PO SCH ×3 (06:27→22:16)
[2017-08-14] MEDS: cloNIDine HCl 0.1 MG TABLET PO SCH ×3 (06:28→22:16)
[2017-08-14] MEDS ORDERED: *HR* Morphine 2 MG/ML SYRINGE IVP PRN (07:31)
[2017-08-14] MEDS: Aspirin Enteric Coated 81 MG Tablet PO SCH (08:07)
[2017-08-14] MEDS: APIXABAN 2.5 MG TABLET PO SCH ×2 (08:07→22:16)
[2017-08-14] MEDS: Linezolid 600 MG TABLET PO SCH ×2 (08:07→22:16)
[2017-08-14] MEDS: Insulin LISPRO 300 UNITS/3 ML VIAL SQ SCH ×7 (08:08→22:18)
[2017-08-14] MEDS: predniSONE 20 MG TABLET PO SCH (08:08)
--- NOTE | 2017-08-14 08:39 | Podiatry Progress Note ---
Date of Encounter: 08/13/17 Time of Encounter: 08:35 - Assessment and Plan (1) Hematoma Current Visit: Yes Status: Acute Patient would benefit from continued pressure on the site with Clifford wraps, just not as tight as before. Patient will benefit from a dry dressing over the site. Patient will need follow-up 1 week after discharge. Subjective Principal diagnosis: infection vs hematoma Interval history: Patient relates that her foot was painful earlier today but states that after loosening up the Clifford wrap the pain decreased significantly. Objective - Vital Signs Vital Signs: Vital Signs Temp Pulse Resp BP Pulse Ox 08/14/17 07:05 97.9 F 76 16 177/90 100 08/14/17 06:00 97.6 F 64 18 178/82 100 08/14/17 03:37 19 100 08/13/17 21:27 18 100 08/13/17 19:00 98.2 F 71 18 168/85 98 08/13/17 16:41 66 20 169/65 99 08/13/17 16:09 98.1 F 65 20 171/76 99 08/13/17 15:28 66 20 192/87 93 08/13/17 15:00 77 93 192/87 93 08/13/17 11:37 98.1 F 76 15 175/83 98 08/13/17 10:10 20 99 08/13/17 09:36 93 08/13/17 09:13 134 20 160/104 93 Intake and Output 08/13/17 08/14/17 08/14/17 23:59 07:59 15:59 Intake Total 120 / 120 Balance 120 / 120 Intake: Oral 120 / 120 Other: # Urine Diapers 1 2 Weight 88.4 kg Blood Glucose* 198 197 Patient Weight 08/14/17 23:59 Weight 88.4 kg - Exam Exam: Tendon mild pain with palpation to the surgical incision side with no apparent recurrence of the hematoma. No erythema or other signs of infection. Pedal pulses palpable. Cap refill time intact to the digits. - Lab Result Diagrams: 08/14/17 04:53 08/14/17 04:53 Labs: Abnormal lab results Hgb 10.6 g/dL (11.5-15.4) L 08/14/17 04:53 MCH 26.1 pg (28.0-33.3) L 08/14/17 04:53 MCHC 30.0 g/dL (31.6-35.5) L 08/14/17 04:53 RDW 16.6 % (11.5-14.5) H 08/14/17 04:53 PT 19.5 Seconds (9.4-12.1) H 08/09/17 03:55 ABG pO2 83 mmHg (85-104) L 08/09/17 06:57 BUN 53 mg/dL (7-20) H 08/14/17 04:53 Creatinine 1.58 mg/dL (0.57-1.11) H 08/14/17 04:53 Est GFR ( Amer) 39 (> 60) L 08/14/17 04:53 Est GFR (Non-Af Amer) 32 (> 60) L 08/14/17 04:53 BUN/Creatinine Ratio 34 (6-26) H 08/14/17 04:53 Glucose 214 mg/dL (70-99) H 08/14/17 04:53 POC Glucose 216 (58-89) H 08/13/17 16:07 Hemoglobin A1c 8.2 % (-5.6) H 08/09/17 03:55 Calculated Osmolality 309 (280-300) H 08/14/17 04:53 Troponin I 0.08 ng/mL (0-0.03) H* 08/09/17 03:55 B-Natriuretic Peptide 853 pg/mL (0-100) H 08/08/17 15:45 Albumin 2.7 g/dL (3.5-5.0) L 08/11/17 06:55 Globulin 4.6 g/dL (2.4-3.5) H 08/11/17 06:55 Albumin/Globulin Ratio 0.6 (1.1-2.2) L 08/11/17 06:55 HDL Cholesterol 29 mg/dL (40-59) L 08/09/17 03:55 Microbiology, Last 48 Hours 08/08/17 21:20 Blood Culture - Final Peripheral Venipuncture No growth. 08/08/17 21:20 Blood Culture - Final Peripheral Venipuncture No growth. 08/12/17 19:53 Wound Culture - Preliminary Right Leg No growth. 08/10/17 08:15 Sputum Culture - Final Sputum Methicillin Resistant S.aureus Consult Discharge Plan - Plan Additional Instructions: pcp requested Dry dressing over the hematoma site on the left leg. Follow-up one week after discharge with Danyel sessions in clinic for the left leg hematoma. Referrals: Geremias Ryan DO [Primary Care Provider] - 08/17/17 1:00 pm Milton Ashton MD [Partnered Physician] - 09/01/17 1:15 pm
--- NOTE | 2017-08-14 11:39 | Internal Med Progress Note ---
Date of Encounter: 08/14/17 Time of Encounter: 10:20 - Assessment and plan (1) Pneumonia Current Visit: Yes Status: Acute Assessment and plan: Continue Zyvox. Day 3 of therapy. We will need 7 more days of antibiotic therapy to complete 10 day treatment course. Moderate risk for complications. Will repeat chest x-ray in a.m. Stop Levaquin Qualifiers: Pneumonia type: due to methicillin-resistant Staphylococcus aureus (MRSA) Laterality: right Lung location: lower lobe of lung Qualified Code(s): J15.212 - Pneumonia due to Methicillin resistant Staphylococcus aureus (2) Acute and chronic respiratory failure with hypoxia Current Visit: Yes Status: Acute Assessment and plan: Presently on 2 L nasal cannula which is her baseline. (3) HTN (hypertension) Current Visit: Yes Status: Chronic Assessment and plan: Patient continues to have accelerated hypertension. Did not respond well to increase of Lopressor yesterday with some episodes of bradycardia. Lopressor has been decreased back to her home dosage. CLONIDINE 0.3 MG 3 TIMES A DAY, HYDRALAZINE 100 MG 3 TIMES A DAY AND LOPRESSOR 50 MG BY MOUTH TWICE A DAY. Limited in medications that can be added to this regimen. We will consider adding amlodipine or changing beta amos to carvedilol. Continue IV hydralazine as needed intravenously to keep systolic blood pressure less than 160. Unable to add ADONAY inhibitor or ARB due to acute kidney injury that the patient developed. However her renal function continues to improve to her baseline and she may be started on these medications. Qualifiers: Hypertension type: essential hypertension Qualified Code(s): I10 - Essential (primary) hypertension (4) Acute exacerbation of CHF (congestive heart failure) Current Visit: Yes Status: Acute Assessment and plan: Heart failure improving overall with decreasing pedal edema. Lasix has been on hold since yesterday due to worsening renal function. Renal function improving today with creatinine of 1.58. May resume Lasix tomorrow if renal function continues to improve. Continue fluid restriction. Qualifiers: Congestive heart failure type: diastolic Qualified Code(s): I50.33 - Acute on chronic diastolic (congestive) heart failure (5) Acute exacerbation of chronic obstructive pulmonary disease (COPD) Current Visit: Yes Status: Acute Assessment and plan: Improving. Continue bronchodilators and continue to taper steroids. (6) CAP (community acquired pneumonia) Current Visit: Yes Status: Acute Qualifiers: Laterality: left Lung location: unspecified part of lung Qualified Code(s ): J18.9 - Pneumonia, unspecified organism (7) CKD (chronic kidney disease) stage 3, GFR 30-59 ml/min Current Visit: Yes Status: Chronic Assessment and plan: Renal function returning to baseline. Continue to follow. (8) Coronary artery disease Current Visit: Yes Status: Chronic Assessment and plan: No chest pain. Continue aspirin, statin and beta amos. Qualifiers: Coronary Disease-Associated Artery/Lesion type: bypass graft [place] vs. transplanted heart: [place] heart Associated angina: without angina Qualified Code(s): I25.810 - Atherosclerosis of coronary artery bypass graft(s) without angina pectoris (9) Diabetes mellitus Current Visit: Yes Status: Chronic Assessment and plan: Blood sugars are elevated again today. We will increase evening dose of Levemir. Continue to monitor blood sugars closely. Qualifiers: Diabetes mellitus type: type 2 Diabetes mellitus complication status: with hyperglycemia Diabetes mellitus fci insulin use: with director long term care use Qualified Code(s): E11.65 - Type 2 diabetes mellitus with hyperglycemia; Z79.4 - termite control technician (current) use of insulin (10) Sepsis Current Visit: Yes Status: Resolved Assessment and plan: Due to MRSA pneumonia. Sepsis is resolved. Qualifiers: Sepsis type: sepsis due to unspecified organism Qualified Code(s): A41.9 - Sepsis, unspecified organism (11) Anxiety and depression Current Visit: Yes Status: Chronic Assessment and plan: On Xanax as needed. (12) Atrial fibrillation Current Visit: Yes Status: Chronic Assessment and plan: Irregular rhythm but rate controlled. On anticoagulation with Eliquis. Qualifiers: Atrial fibrillation type: paroxysmal Qualified Code(s): I48.0 - Paroxysmal atrial fibrillation (13) Traumatic hematoma of right lower leg Current Visit: Yes Status: Acute Assessment and plan: Status post evacuation done on 08/12/17. Patient is doing well. Qualifiers: Encounter type: subsequent encounter Qualified Code(s): S80.11XD - Contusion of right lower leg, subsequent encounter - Subjective Interval history: 71-year-old female patient admitted here with acute on chronic respiratory failure with hypoxia due to CHF exacerbation and MRSA pneumonia also diagnosed with hematoma involving the right lower extremity after traumatic injury that has now been evacuated. Continues to have Uncontrolled hypertension. This morning she is feeling much better overall. Pain in her right lower extremity is much improved. Her breathing is also improved. She denies any dizziness and is not anxious today. Denies any dizziness or headache or chest pain. - Constitutional Vitals: Temp Pulse Resp BP Pulse Ox 98.5 F 73 16 192/82 98 08/14/17 11:32 08/14/17 11:32 08/14/17 11:32 08/14/17 11:32 08/14/17 11:32 General appearance: Present: cooperative, A&O X 3, morbidly obese, pleasant, no acute distress, answers questions appropriately - Neck Neck exam general surgery: Present: supple, trachea midline. Absent: lymphadenopathy - Respiratory Respiratory exam: Present: decreased breath sounds (At both bases). Absent: accessory muscle use, rales, rhonchi, wheezes - Cardiovascular Cardiovascular exam: Present: +S1, +S2. Absent: diastolic murmur, gallop, rubs , systolic murmur - GI/Abdominal GI/Abdominal exam: Present: normal bowel sounds, soft, no peritoneal signs. Absent: distended, tenderness - Extremities Exam Extremities exam: Present: pedal edema (Significantly improved especially on the right), warm, radial pulses palpable and symmetrical. Absent: calf tenderness, cyanotic Additional comments: Right lower extremity bandaged. Nontender to palpation - Neurological Exam Neurological exam: Present: CN II-XII intact, oriented X3, no focal deficits. Absent: facial droop, speech deficit Internal Medicine: Result - Labs CBC & Chem 7: 08/14/17 04:53 08/14/17 04:53 Labs: Short CBC 08/14/17 Range/Units 04:53 WBC 8.9 (4.3-11.1) K/mcL Hgb 10.6 L (11.5-15.4) g/dL Hct 35.3 (35.3-44.9) % Plt Count 224 (140-400) K/mcL Neutrophils # 6.4 (1.6-8.9) K/mcL BMP 08/14/17 04:53 Sodium 139 Potassium 4.4 Chloride 103 Carbon Dioxide 26 BUN 53 H Creatinine 1.58 H Glucose 214 H Calcium 9.1 - ABG Interpretation ABG results: ABG ABG pH 7.37 pH Units (7.32-7.45) 08/09/17 06:57 ABG pCO2 43 mmHg (35-45) 08/09/17 06:57 ABG pO2 83 mmHg (85-104) L 08/09/17 06:57 ABG O2 Saturation 96 % (95-98) 08/09/17 06:57 PT/INR, D-dimer PT 19.5 Seconds (9.4-12.1) H 08/09/17 03:55 Consult Discharge Plan - Plan Additional Instructions: pcp requested Dry dressing over the hematoma site on the left leg. Follow-up one week after discharge with Danyel sessions in clinic for the left leg hematoma. Referrals: Geremias Ryan DO [Primary Care Provider] - 08/17/17 1:00 pm Milton Ashton MD [Partnered Physician] - 09/01/17 1:15 pm
[2017-08-14] MEDS: Insulin DETEMIR 100 UNIT/ML X5UNITS SQ SCH ×2 (12:06→23:45)
--- NOTE | 2017-08-14 12:42 | Podiatry Progress Note ---
Date of Encounter: 08/14/17 Time of Encounter: 11:00 - Assessment and Plan (1) Traumatic hematoma of right lower leg Current Visit: Yes Status: Acute S/p evacuation of right hematoma by Dr. Mccarty on 08/12/17. Incision line healing uneventfully, no fluctuance, no active drainage. WBC: 8.9 Plan: Continue dressing changes as ordered. Patient will need to f/u with Dr. Mccarty in Podiatry clinic 1 week after discharge from the hospital. Qualifiers: Encounter type: subsequent encounter Qualified Code(s): S80.11XD - Contusion of right lower leg, subsequent encounter (2) Uncontrolled type 2 diabetes mellitus with insulin therapy Current Visit: Yes Status: Chronic Subjective Principal diagnosis: infection vs hematoma Interval history: Patient is s/p evacuation of right leg hematoma by Dr. Mccarty on 08/12/17. Patient is sitting up in bed with roberto wrap dressing dry and intact. Patient denies any pain, fever, chills. Objective - Vital Signs Vital Signs: Vital Signs Temp Pulse Resp BP Pulse Ox 08/14/17 11:32 98.5 F 73 16 192/82 98 08/14/17 10:15 18 99 08/14/17 07:05 97.9 F 76 16 177/90 100 08/14/17 06:00 97.6 F 64 18 178/82 100 08/14/17 03:37 19 100 08/13/17 21:27 18 100 08/13/17 19:00 98.2 F 71 18 168/85 98 08/13/17 16:41 66 20 169/65 99 08/13/17 16:09 98.1 F 65 20 171/76 99 08/13/17 15:28 66 20 192/87 93 08/13/17 15:00 77 93 192/87 93 Intake and Output 08/13/17 08/14/17 08/14/17 23:59 07:59 15:59 Intake Total 120 / 120 360 / 360 Balance 120 / 120 360 / 360 Intake: Oral 120 / 120 360 / 360 Other: Meal Breakfast Percent of Meal Consumed 100% # Urine Diapers 1 2 Weight 88.4 kg Blood Glucose* 198 197 167 Patient Weight 08/14/17 23:59 Weight 88.4 kg - Exam Exam: General appearance: alert awake oriented X 3. Calm and pleasant, no acute distress.. Vascular: Right: Pedal pulses +2/4 DP/PT , No evidence of cyanosis, pallor or rubor, Edema graded at 1+/4, Skin Tempature warm, No calf pain with manual compression. capillary refill time is immediate to digits. Neurologic: Sensation intact with light touch to foot. . Postop Exam: S/P Sutures intact to incision line, no signs of dehiscence. Light periwound erythema, no fluctuance, no open area, no drainage, no odor, no streaking. Minimal edema. - Lab Result Diagrams: 08/14/17 04:53 08/14/17 04:53 Labs: Abnormal lab results Hgb 10.6 g/dL (11.5-15.4) L 08/14/17 04:53 MCH 26.1 pg (28.0-33.3) L 08/14/17 04:53 MCHC 30.0 g/dL (31.6-35.5) L 08/14/17 04:53 RDW 16.6 % (11.5-14.5) H 08/14/17 04:53 PT 19.5 Seconds (9.4-12.1) H 08/09/17 03:55 ABG pO2 83 mmHg (85-104) L 08/09/17 06:57 BUN 53 mg/dL (7-20) H 08/14/17 04:53 Creatinine 1.58 mg/dL (0.57-1.11) H 08/14/17 04:53 Est GFR ( Amer) 39 (> 60) L 08/14/17 04:53 Est GFR (Non-Af Amer) 32 (> 60) L 08/14/17 04:53 BUN/Creatinine Ratio 34 (6-26) H 08/14/17 04:53 Glucose 214 mg/dL (70-99) H 08/14/17 04:53 POC Glucose 198 (58-89) H 08/13/17 20:51 Hemoglobin A1c 8.2 % (-5.6) H 08/09/17 03:55 Calculated Osmolality 309 (280-300) H 08/14/17 04:53 Troponin I 0.08 ng/mL (0-0.03) H* 08/09/17 03:55 B-Natriuretic Peptide 853 pg/mL (0-100) H 08/08/17 15:45 Albumin 2.7 g/dL (3.5-5.0) L 08/11/17 06:55 Globulin 4.6 g/dL (2.4-3.5) H 08/11/17 06:55 Albumin/Globulin Ratio 0.6 (1.1-2.2) L 08/11/17 06:55 HDL Cholesterol 29 mg/dL (40-59) L 08/09/17 03:55 Microbiology, Last 48 Hours 08/08/17 21:20 Blood Culture - Final Peripheral Venipuncture No growth. 08/08/17 21:20 Blood Culture - Final Peripheral Venipuncture No growth. 08/12/17 19:53 Wound Culture - Preliminary Right Leg No growth. 08/10/17 08:15 Sputum Culture - Final Sputum Methicillin Resistant S.aureus Consult Discharge Plan - Plan Additional Instructions: pcp requested Dry dressing over the hematoma site on the left leg. Follow-up one week after discharge with [facility] sessions in clinic for the left leg hematoma. Referrals: Geremias Ryan DO [Primary Care Provider] - 08/17/17 1:00 pm Milton Ashton MD [Partnered Physician] - 09/01/17 1:15 pm
[2017-08-15] MEDS: Ipratropium/Albuterol Neb 3 ML IH SCH ×4 (03:46→22:15)
[2017-08-15 04:19] LABS: Eosinophils % 0.2 %; Hematocrit 36.2 % (35.3-44.9); Hemoglobin 10.7 g/dL (11.5-15.4); Immature Granulocytes % 0.4 % (0-4); Lymphocytes # 1.4 K/mcL (0.6-4.6); Lymphocytes % 13.2 %; Mean Corpuscular HGB Conc 29.6 g/dL (31.6-35.5); Mean Corpuscular Hemoglobin 25.5 pg (28.0-33.3); Mean Corpuscular Volume 86.2 fL (83.0-100.0); Mean Platelet Volume 11.4 fL (9.4-12.4); Monocytes # 1.1 K/mcL (0.0-1.3); Monocytes % 10.9 %; Neutrophils # 7.7 K/mcL (1.6-8.9); Platelet Count 238 K/mcL (140-400); Red Cell Distribution Width 16.2 % (11.5-14.5); Segmented Neutrophils % 75.3 %
[2017-08-15 04:28] LABS: Calcium 9.3 mg/dL (8.6-10.8); Potassium 3.9 mEq/L (3.5-4.5)
[2017-08-15] MEDS: Insulin LISPRO 300 UNITS/3 ML VIAL SQ SCH ×7 (07:43→20:57)
[2017-08-15] MEDS: predniSONE 20 MG TABLET PO SCH (07:50)
[2017-08-15] MEDS: Aspirin Enteric Coated 81 MG Tablet PO SCH (07:51)
[2017-08-15] MEDS: hydrALAZINE 25 MG TABLET PO SCH ×3 (07:51→20:55)
[2017-08-15] MEDS: Linezolid 600 MG TABLET PO SCH ×2 (07:51→20:56)
[2017-08-15] MEDS: cloNIDine HCl 0.1 MG TABLET PO SCH ×3 (07:51→20:56)
[2017-08-15] MEDS: APIXABAN 2.5 MG TABLET PO SCH ×2 (07:51→20:56)
[2017-08-15] MEDS: Insulin DETEMIR 100 UNIT/ML X5UNITS SQ SCH ×2 (11:31→20:56)
[2017-08-15] MEDS: Furosemide 40 MG TABLET PO SCH (16:38)
[2017-08-15] MEDS: ALPRAZolam 0.5 MG TABLET PO PRN (17:09)
--- NOTE | 2017-08-15 18:32 | Internal Med Progress Note ---
Date of Encounter: 08/15/17 Time of Encounter: 10:00 - Assessment and plan (1) Acute exacerbation of chronic obstructive pulmonary disease (COPD) Current Visit: Yes Status: Acute Assessment and plan: Improving. Continue bronchodilators and continue to taper steroids. (2) CAP (community acquired pneumonia) Current Visit: Yes Status: Acute Assessment and plan: IV abx Prelim blood and sputum culture reports No growth Qualifiers: Laterality: left Lung location: unspecified part of lung Qualified Code(s ): J18.9 - Pneumonia, unspecified organism (3) Acute exacerbation of CHF (congestive heart failure) Current Visit: Yes Status: Acute Assessment and plan: Heart failure improving overall with decreasing pedal edema. Continue to hold Lasix due to worsening renal function. Continue fluid restriction. Qualifiers: Congestive heart failure type: diastolic Qualified Code(s): I50.33 - Acute on chronic diastolic (congestive) heart failure (4) CKD (chronic kidney disease) stage 3, GFR 30-59 ml/min Current Visit: Yes Status: Chronic Assessment and plan: Renal function returning to baseline. Continue to follow. (5) HTN (hypertension) Current Visit: Yes Status: Chronic Qualifiers: Hypertension type: essential hypertension Qualified Code(s): I10 - Essential (primary) hypertension (6) Acute and chronic respiratory failure with hypoxia Current Visit: Yes Status: Acute Assessment and plan: Presently on 2 L nasal cannula which is her baseline. (7) DVT prophylaxis Current Visit: No Status: Acute Assessment and plan: anticoagulated with Eliquis - Subjective Interval history: Patient continues to have expiratory wheezes on exam due to COPD exacerbation and MRSA pneumonia. - Constitutional Vitals: Temp Pulse Resp BP Pulse Ox 98.2 F 69 16 204/87 96 08/15/17 15:08 08/15/17 15:08 08/15/17 15:10 08/15/17 15:08 08/15/17 15:10 General appearance: Present: cooperative, A&O X 3, morbidly obese, pleasant, no acute distress, answers questions appropriately - Respiratory Respiratory exam: Present: wheezes (Expiratory wheezes bilaterally. ) Internal Medicine: Result - Labs CBC & Chem 7: 08/15/17 03:44 08/15/17 03:44 Labs: Short CBC 08/15/17 Range/Units 03:44 WBC 10.2 (4.3-11.1) K/mcL Hgb 10.7 L (11.5-15.4) g/dL Hct 36.2 (35.3-44.9) % Plt Count 238 (140-400) K/mcL Neutrophils # 7.7 (1.6-8.9) K/mcL BMP 08/15/17 03:44 Sodium 139 Potassium 3.9 Chloride 101 Carbon Dioxide 30 H BUN 54 H Creatinine 1.54 H Glucose 138 H Calcium 9.3 - ABG Interpretation ABG results: ABG ABG pH 7.37 pH Units (7.32-7.45) 08/09/17 06:57 ABG pCO2 43 mmHg (35-45) 08/09/17 06:57 ABG pO2 83 mmHg (85-104) L 08/09/17 06:57 ABG O2 Saturation 96 % (95-98) 08/09/17 06:57 PT/INR, D-dimer PT 19.5 Seconds (9.4-12.1) H 08/09/17 03:55 - Impressions Impressions Chest X-Ray 08/15/17 07:00 IMPRESSION: 1. Mild interstitial edema. 2. Cardiomegaly. D/ / 08/15/2017 07:35:07 Kathi Guerrero MD / john Interpreting Provider: Kathi Guerrero MD Consult Discharge Plan - Plan Additional Instructions: pcp requested Dry dressing over the hematoma site on the left leg. Follow-up one week after discharge with [facility] sessions in clinic for the left leg hematoma. Referrals: Geremias Ryan DO [Primary Care Provider] - 08/17/17 1:00 pm Milton Ashton MD [Partnered Physician] - 09/01/17 1:15 pm
[2017-08-16] MEDS: Ipratropium/Albuterol Neb 3 ML IH SCH ×4 (04:36→22:58)
[2017-08-16] MEDS: Insulin LISPRO 300 UNITS/3 ML VIAL SQ SCH ×7 (07:39→20:36)
[2017-08-16] MEDS: cloNIDine HCl 0.1 MG TABLET PO SCH ×3 (07:55→20:19)
[2017-08-16] MEDS: Furosemide 40 MG TABLET PO SCH (07:56)
[2017-08-16] MEDS: APIXABAN 2.5 MG TABLET PO SCH ×2 (07:56→20:20)
[2017-08-16] MEDS: hydrALAZINE 25 MG TABLET PO SCH ×3 (07:56→20:19)
[2017-08-16] MEDS: predniSONE 20 MG TABLET PO SCH (07:56)
[2017-08-16] MEDS: Linezolid 600 MG TABLET PO SCH ×2 (07:56→20:19)
[2017-08-16] MEDS: Aspirin Enteric Coated 81 MG Tablet PO SCH (07:56)
[2017-08-16] MEDS: Insulin DETEMIR 100 UNIT/ML X5UNITS SQ SCH ×2 (09:21→20:19)
[2017-08-16 09:28] LABS: Basophils % 0.1 %; Eosinophils # 0.1 K/mcL (0.0-0.6); Hematocrit 34.8 % (35.3-44.9); Hemoglobin 10.6 g/dL (11.5-15.4); Immature Granulocytes % 0.4 % (0-4); Immature Platelets 7.1 % (1.1-6.1); Mean Corpuscular HGB Conc 30.5 g/dL (31.6-35.5); Mean Corpuscular Volume 85.3 fL (83.0-100.0); Mean Platelet Volume 10.9 fL (9.4-12.4); Monocytes # 1.2 K/mcL (0.0-1.3); Monocytes % 9.3 %; Neutrophils # 10.2 K/mcL (1.6-8.9); Platelet Count 207 K/mcL (140-400); Red Blood Count 4.08 M/mcL (3.82-4.97); Red Cell Distribution Width 16.2 % (11.5-14.5); Segmented Neutrophils % 81.2 %
[2017-08-16 09:40] LABS: Calcium 8.5 mg/dL (8.6-10.3); Potassium 3.3 mEq/L (3.5-5.1)
--- NOTE | 2017-08-16 12:38 | Podiatry Progress Note ---
Date of Encounter: 08/16/17 Time of Encounter: 12:00 - Assessment and Plan (1) Saeeda Current Visit: Yes Status: Acute s/p evacuation of hematoma of right tibial region Plan: Dressing removed and incision line inspected at bedside. appears is to be healing without issue or competitions. There is no evidence of return of abscess. Edema is markedly improved since previous exam Patient instructed to keep area clean and dry. We will leave sutures and at this time. Patient states it is easier for her to follow with her primary care provider due to location. We will allow her to see primary care provider Dr. Pelletier to remove sutures to right tibial region. Patient instructed the sutures will need to be removed in 2 weeks. Verbalized understanding. She is to keep surgical incision covered with dry dressing. Patient has benefited from application of compression from Clifford wrap. She may continue the use of the Clifford bandage after discharge She to call with any signs or symptoms of infection, shortness of breath, chest pain, calf pain, return of symptoms, or questions or concerns Wound cultures of surgical area returned and finalized. No growth. reported to patient Subjective Principal diagnosis: infection vs hematoma Interval history: s/p evacuation of hematoma of right pak per on 08/12. Patient resting comfortably on arrival with dressing intact. States there is slight stinging pain occasionally but otherwise has no complaints or pain. Patient denies any fevers or chills. Denies any sob or chest pain. States she may go home today or tomorrow Objective - Vital Signs Vital Signs: Vital Signs Temp Pulse Resp BP Pulse Ox 08/16/17 09:59 16 176/84 98 08/16/17 06:57 97.9 F 90 15 176/84 97 08/16/17 04:42 97.9 F 77 20 184/92 100 08/16/17 04:36 16 99 08/15/17 22:15 16 99 08/15/17 19:09 98.6 F 93 19 155/65 98 08/15/17 15:10 16 96 08/15/17 15:08 98.2 F 69 16 204/87 98 Intake and Output 08/15/17 08/16/17 08/16/17 23:59 07:59 15:59 Intake Total 200 / 200 480 / 480 Output Total 0 / 0 Balance 200 / 200 480 / 480 Intake: Oral 200 / 200 480 / 480 Output: Urine 0 / 0 Other: Meal Breakfast Percent of Meal Consumed 100% # Voids 1 # Urine Diapers 1 Blood Glucose* 285 103 254 - Exam Exam: Podiatry General Exam: General appearance: alert awake oriented X 3. Calm and pleasant, no acute distress.. Vascular: Pedal pulses +2/4 DP/PT , No evidence of cyanosis, pallor or rubor, Edema graded at 1+/4 much improved from previous assessment, Skin Temperature warm, No calf pain with manual compression. capillary refill time is immediate to digits. Neurologic: Sensation intact with moderate touch Postop Exam: S/P Sutures intact to incision line, 2 total, no signs of dehiscence. No open area, no drainage, no odor, no erythema, no streaking. Minimal edema. No appearance of return of abscess formation. No fluctuance. - Lab Result Diagrams: 08/16/17 09:19 08/16/17 09:19 Labs: Abnormal lab results WBC 12.5 K/mcL (4.3-11.1) H 08/16/17 09:19 Hgb 10.6 g/dL (11.5-15.4) L 08/16/17 09:19 Hct 34.8 % (35.3-44.9) L 08/16/17 09:19 MCH 26.0 pg (28.0-33.3) L 08/16/17 09:19 MCHC 30.5 g/dL (31.6-35.5) L 08/16/17 09:19 RDW 16.2 % (11.5-14.5) H 08/16/17 09:19 Neutrophils # 10.2 K/mcL (1.6-8.9) H 08/16/17 09:19 Immature Plt Fraction 7.1 % (1.1-6.1) H 08/16/17 09:19 PT 19.5 Seconds (9.4-12.1) H 08/09/17 03:55 ABG pO2 83 mmHg (85-104) L 08/09/17 06:57 Potassium 3.3 mEq/L (3.5-5.1) L 08/16/17 09:19 Carbon Dioxide 31 mEq/L (23-29) H 08/16/17 09:19 BUN 48 mg/dL (8-23) H 08/16/17 09:19 Creatinine 1.37 mg/dL (0.60-1.20) H 08/16/17 09:19 Est GFR ( Amer) 46 (> 60) L 08/16/17 09:19 Est GFR (Non-Af Amer) 38 (> 60) L 08/16/17 09:19 BUN/Creatinine Ratio 35 (6-26) H 08/16/17 09:19 Glucose 216 mg/dL (70-105) H 08/16/17 09:19 POC Glucose 285 (58-89) H 08/15/17 20:23 Hemoglobin A1c 8.2 % (-5.6) H 08/09/17 03:55 Calculated Osmolality 301 (280-300) H 08/16/17 09:19 Calcium 8.5 mg/dL (8.6-10.3) L 08/16/17 09:19 Troponin I 0.08 ng/mL (0-0.03) H* 08/09/17 03:55 B-Natriuretic Peptide 853 pg/mL (0-100) H 08/08/17 15:45 Albumin 2.7 g/dL (3.5-5.0) L 08/11/17 06:55 Globulin 4.6 g/dL (2.4-3.5) H 08/11/17 06:55 Albumin/Globulin Ratio 0.6 (1.1-2.2) L 08/11/17 06:55 HDL Cholesterol 29 mg/dL (40-59) L 08/09/17 03:55 Microbiology, Last 48 Hours 08/12/17 19:53 Anaerobic Culture - Preliminary Right Leg At this time, no anaerobic growth is present. The culture will be finalized after 5 days of incubation. 08/12/17 19:53 Wound Culture - Final Right Leg No growth. 08/08/17 21:20 Blood Culture - Final Peripheral Venipuncture No growth. 08/08/17 21:20 Blood Culture - Final Peripheral Venipuncture No growth. Consult Discharge Plan - Plan Additional Instructions: pcp requested Dry dressing over the hematoma site on the left leg. Follow-up one week after discharge with [facility] sessions in clinic for the left leg hematoma. Referrals: Geremias Ryan DO [Primary Care Provider] - 08/17/17 1:00 pm Milton Ashton MD [Partnered Physician] - 09/01/17 1:15 pm
[2017-08-16] MEDS ORDERED: Furosemide 20 MG/2 ML VIAL IVP ONE (15:47)
--- NOTE | 2017-08-16 17:54 | Internal Med Progress Note ---
Date of Encounter: 08/16/17 Time of Encounter: 11:00 - Assessment and plan (1) Acute exacerbation of chronic obstructive pulmonary disease (COPD) Current Visit: Yes Status: Acute Assessment and plan: -Improving but patient still with bilateral expiratory wheezes. -Continue bronchodilators and continue to taper steroids. (2) CAP (community acquired pneumonia) Current Visit: Yes Status: Acute Assessment and plan: -Will continue a 10 day course of Zyvox for MRSA and pneumonia per pulmonology recommendations. Qualifiers: Laterality: left Lung location: unspecified part of lung Qualified Code(s ): J18.9 - Pneumonia, unspecified organism (3) Acute exacerbation of CHF (congestive heart failure) Current Visit: Yes Status: Acute Assessment and plan: -Heart failure improving overall with decreasing pedal edema. -Will continue patient's oral Lasix with fluid restriction. Qualifiers: Congestive heart failure type: diastolic Qualified Code(s): I50.33 - Acute on chronic diastolic (congestive) heart failure (4) CKD (chronic kidney disease) stage 3, GFR 30-59 ml/min Current Visit: Yes Status: Chronic Assessment and plan: -Stable; continue to monitor (5) HTN (hypertension) Current Visit: Yes Status: Chronic Assessment and plan: Patient continues to have accelerated hypertension. Will continue CLONIDINE 0.3 MG 3 TIMES A DAY, HYDRALAZINE 100 MG 3 TIMES A DAY AND CARVEDILOL 25 mg BID Unable to add ADONAY inhibitor or ARB due to acute kidney injury that the patient developed; if renal function continues to improve to her baseline and she may be started on these medications. Continue IV hydralazine as needed intravenously to keep systolic blood pressure less than 160. Qualifiers: Hypertension type: essential hypertension Qualified Code(s): I10 - Essential (primary) hypertension (6) Acute and chronic respiratory failure with hypoxia Current Visit: Yes Status: Acute Assessment and plan: Presently on 2 L nasal cannula which is her baseline. (7) DVT prophylaxis Current Visit: No Status: Acute Assessment and plan: anticoagulated with Eliquis - Subjective Interval history: Patient continues to have expiratory wheezes on exam due to COPD exacerbation and MRSA pneumonia. In addition, since blood pressures continues to be elevated and this afternoon patient developed atrial fibrillation with RVR She was given a bolus of Cardizem resulting in rate control and patient is now normotensive. - Constitutional Vitals: Temp Pulse Resp BP Pulse Ox 97.9 F 90 16 176/84 98 08/16/17 06:57 08/16/17 06:57 08/16/17 09:59 08/16/17 09:59 08/16/17 09:59 General appearance: Present: cooperative, A&O X 3, morbidly obese, pleasant, no acute distress, answers questions appropriately - Respiratory Respiratory exam: Present: wheezes (Bilateral expiratory wheezes) - Cardiovascular Cardiovascular exam: Present: tachycardia Internal Medicine: Result - Labs CBC & Chem 7: 08/16/17 09:19 08/16/17 09:19 Labs: Short CBC 08/16/17 Range/Units 09:19 WBC 12.5 H (4.3-11.1) K/mcL Hgb 10.6 L (11.5-15.4) g/dL Hct 34.8 L (35.3-44.9) % Plt Count 207 (140-400) K/mcL Neutrophils # 10.2 H (1.6-8.9) K/mcL BMP 08/16/17 09:19 Sodium 136 Potassium 3.3 L Chloride 99 Carbon Dioxide 31 H BUN 48 H Creatinine 1.37 H Glucose 216 H Calcium 8.5 L - ABG Interpretation ABG results: ABG ABG pH 7.37 pH Units (7.32-7.45) 08/09/17 06:57 ABG pCO2 43 mmHg (35-45) 08/09/17 06:57 ABG pO2 83 mmHg (85-104) L 08/09/17 06:57 ABG O2 Saturation 96 % (95-98) 08/09/17 06:57 PT/INR, D-dimer PT 19.5 Seconds (9.4-12.1) H 08/09/17 03:55 Consult Discharge Plan - Plan Additional Instructions: pcp requested Dry dressing over the hematoma site on the left leg. Follow-up one week after discharge with [facility] sessions in clinic for the left leg hematoma. Referrals: Geremias Ryan DO [Primary Care Provider] - 08/17/17 1:00 pm Milton Ashton MD [Partnered Physician] - 09/01/17 1:15 pm
[2017-08-17] MEDS: Ipratropium/Albuterol Neb 3 ML IH SCH ×4 (04:23→22:56)
[2017-08-17] MEDS: Insulin LISPRO 300 UNITS/3 ML VIAL SQ SCH ×6 (08:50→17:40)
[2017-08-17 08:52] LABS: Basophils % 0.1 %; Eosinophils # 0.2 K/mcL (0.0-0.6); Eosinophils % 1.1 %; Hematocrit 38.8 % (35.3-44.9); Immature Granulocytes % 0.7 % (0-4); Lymphocytes % 10.1 %; Mean Corpuscular HGB Conc 30.9 g/dL (31.6-35.5); Mean Platelet Volume 11.4 fL (9.4-12.4); Monocytes # 2.1 K/mcL (0.0-1.3); Neutrophils # 14.9 K/mcL (1.6-8.9); Platelet Count 329 K/mcL (140-400); Red Blood Count 4.62 M/mcL (3.82-4.97)
[2017-08-17] MEDS: cloNIDine HCl 0.1 MG TABLET PO SCH ×3 (09:08→21:41)
[2017-08-17] MEDS: APIXABAN 2.5 MG TABLET PO SCH ×2 (09:08→21:41)
[2017-08-17] MEDS: Aspirin Enteric Coated 81 MG Tablet PO SCH (09:08)
[2017-08-17] MEDS: hydrALAZINE 25 MG TABLET PO SCH ×3 (09:09→21:40)
[2017-08-17] MEDS: Furosemide 40 MG TABLET PO SCH (09:09)
[2017-08-17] MEDS: predniSONE 20 MG TABLET PO SCH (09:09)
[2017-08-17] MEDS: Linezolid 600 MG TABLET PO SCH ×2 (09:10→21:41)
[2017-08-17 09:15] LABS: Calcium 9.1 mg/dL (8.6-10.3); Potassium 3.6 mEq/L (3.5-5.1)
[2017-08-17] MEDS: Insulin DETEMIR 100 UNIT/ML X5UNITS SQ SCH (09:50)
--- NOTE | 2017-08-17 12:11 | Cardiology Progress Note ---
Date of Encounter: 08/17/17 Time of Encounter: 12:09 Assessment and Plan (1) Atrial fibrillation and flutter Current Visit: Yes Status: Acute Previously in A-Fib, now appears to be in A-Flutter. In setting of COPD exacerbation and MRSA PNA, improved diastolic CHF. IV cardizem bolus given the last 2 days with rate control achieved after. Will start Cardizem CD 120mg daily. Continue Coreg 25mg BID. Echo 08/09/17 LVEF 50-55%. Mild to moderate concentric left ventricular hypertrophy. Moderate left ventricular diastolic dysfunction with elevated filling pressures. Severely dilated left atrium. Mildly dilated RV with moderate reduction in function. Mild-moderate mitral regurgitation. Moderate-severe tricuspid regurgitation. Mild pulmonic regurgitation. Severe pulmonary hypertension. Anticoagulated on Eliquis--reduced dose for renal adjustment. Continue rate control strategy and anticoagulation. (2) CHF (congestive heart failure) Current Visit: No Status: Chronic CHFpEF with improvement in volume status--near euvolemic. TTE shows LVEF 50-55%, Mild LVH with LV Diastolic dysfunction, severe pulmonary HTN with RSVP 83 Continue PO maintenance diuresis. Recommend strict I/Os, Na and fluid restriction, daily weights. Qualifiers: Congestive heart failure type: diastolic Congestive heart failure chronicity: acute on chronic Qualified Code(s): I50.33 - Acute on chronic diastolic (congestive) heart failure Discussion w patient/family: The assessment and plan as outlined above was discussed with the patient and/or family members who expressed understanding and agreement. All questions were answered. Thank you for involving us in the care of your patient. Please call with any questions. I will discuss all the above with Dr. Cee and make changes as necessary. Subjective Principal diagnosis: infection vs hematoma Interval history: Cardiology reconsulted due to episodes of PAF with RVR. Pt reports palpitations when in RVR. She denies chest pain, reports dyspnea is improving. Objective Vital Signs, Last 4 Hours Pulse Resp BP Pulse Ox 08/17/17 11:48 70 136/59 08/17/17 11:25 18 96 08/17/17 11:00 71 16 107/46 100 Vital Signs Temp Pulse Resp BP Pulse Ox 08/17/17 11:48 70 136/59 08/17/17 11:25 18 96 08/17/17 11:00 71 16 107/46 100 08/17/17 07:13 65 18 97 08/17/17 06:26 160/94 08/17/17 05:30 74 18 98 08/17/17 04:23 18 97 08/16/17 23:53 98 15 146/54 97 08/16/17 22:58 16 96 08/16/17 21:00 98.8 F 88 16 145/62 98 08/16/17 20:16 70 145/62 95 08/16/17 16:30 76 123/58 Intake and Output 08/16/17 08/17/17 08/17/17 23:59 07:59 15:59 Intake Total 360 / 360 Balance 360 / 360 Intake: Oral 360 / 360 Other: Meal Breakfast Percent of Meal Consumed 100% Stool Size Large Stool Consistency soft Stool Color Brown # Voids 1 # Urine Diapers 1 1 Blood Glucose* [phone] General: Conversant, No Apparent Distress HEENT: Atraumatic, Normocephaly, Mucus Membranes Moist Neck: No JVD, Normal carotid pulses Cardiac: Other (irregular) Lungs: Other (rhonchi) Neuro: Alert and responsive, No focal deficits noted Abdomen: Soft, Non-Tender Skin: No rashes noted on visualized skin Musculoskeletal: No Chest Wall Tenderness Extremities: Other (trace BLE) Results 08/17/17 08:41 08/17/17 08:41 Lab Results 08/17/17 08/17/17 08:41 08:41 WBC 19.3 H D Hgb 12.0 Hct 38.8 Plt Count 329 D Sodium 137 Potassium 3.6 Chloride 99 Carbon Dioxide 31 H BUN 53 H Creatinine 1.47 H Glucose 66 L Calcium 9.1 Short CBC 08/17/17 Range/Units 08:41 WBC 19.3 H D (4.3-11.1) K/mcL Hgb 12.0 (11.5-15.4) g/dL Hct 38.8 (35.3-44.9) % Plt Count 329 D (140-400) K/mcL Neutrophils # 14.9 H (1.6-8.9) K/mcL BMP 08/17/17 Range/Units 08:41 Sodium 137 (136-145) mEq/L Potassium 3.6 (3.5-5.1) mEq/L Chloride 99 (98-107) mEq/L Carbon Dioxide 31 H (23-29) mEq/L BUN 53 H (8-23) mg/dL Creatinine 1.47 H (0.60-1.20) mg/dL Glucose 66 L (70-105) mg/dL Calcium 9.1 (8.6-10.3) mg/dL Active Medications Acetaminophen (Tylenol) 650 mg PO Q6HR PRN PRN Reason: Mild Pain (1-3) Stop: 02/07/18 20:03 Hydrocodone Bitart/Acetaminophen ([place] 5-325 Mg) 1 tab PO Q4HR PRN PRN Reason: Moderate Pain (4-6) Stop: 02/07/18 20:03 Last Admin: 08/13/17 15:25 Dose: 1 tab Albuterol/Ipratropium (Duoneb) 3 ml IH [id number] MELO Stop: 02/07/18 22:01 Last Admin: 08/17/17 11:23 Dose: 3 ml Albuterol/Ipratropium (Duoneb) 3 ml IH [id number] PRN PRN Reason: Shortness Of Breath/Wheezing Stop: 02/08/18 15:23 Alprazolam (Xanax) 0.5 mg PO BID PRN; Protocol PRN Reason: Anxiety Stop: 02/07/18 20:15 Last Admin: 08/15/17 17:09 Dose: 0.5 mg Apixaban (Eliquis) 2.5 mg PO BID [facility] Stop: 02/07/18 21:01 Last Admin: 08/17/17 09:08 Dose: 2.5 mg Aspirin (Aspirin Ec) 81 mg PO DAILY [facility] Stop: 02/08/18 09:01 Last Admin: 08/17/17 09:08 Dose: 81 mg Atorvastatin Calcium (Lipitor) 20 mg PO QPM [facility] Stop: 02/08/18 18:01 Last Admin: 08/16/17 17:14 Dose: 20 mg Benzonatate (Tessalon) 100 mg PO TID PRN PRN Reason: Cough Stop: 02/07/18 21:26 Last Admin: 08/13/17 12:43 Dose: 100 mg Carvedilol (Coreg) 25 mg PO BIDWM MELO PRN Reason: Protocol Stop: 02/15/18 17:01 Last Admin: 08/17/17 09:08 Dose: 25 mg Clonidine HCl (Clonidine Hcl) 0.3 mg PO TID [facility] Stop: 02/07/18 21:01 Last Admin: 08/17/17 09:08 Dose: 0.3 mg Dextrose/Water (Dextrose 50% (Syg)) 25 ml IVP AD PRN PRN Reason: Hypoglycemia Stop: 02/07/18 20:28 Diltiazem HCl (Cardizem Cd) 120 mg PO DAILY [facility] Stop: 02/16/18 12:16 Ferrous Sulfate (Ferrous Sulfate) 325 mg PO DAILY [facility] Stop: 02/08/18 09:01 Last Admin: 08/17/17 09:08 Dose: 325 mg Furosemide (Lasix) 40 mg PO DAILY [facility] Stop: 02/14/18 15:01 Last Admin: 08/17/17 09:09 Dose: 40 mg Glucagon (Glucagen) 1 mg IM ONCE PRN PRN Reason: Hypoglycemia Stop: 02/07/18 20:28 Glucose (Gluctose) 15 gm PO ONCE PRN PRN Reason: Hypoglycemia Stop: 02/07/18 20:28 Glucose (Gluctose) 30 gm PO ONCE PRN PRN Reason: Hypoglycemia Stop: 02/07/18 20:28 Hydralazine HCl (Hydralazine) 100 mg PO TID [facility] Stop: 02/07/18 21:01 Last Admin: 08/17/17 09:09 Dose: 100 mg Hydralazine HCl (Hydralazine) 20 mg IVP Q6HR PRN PRN Reason: SBP>160 Stop: 02/07/18 21:24 Last Admin: 08/16/17 05:41 Dose: 20 mg Dextrose (Dextrose 5%) 1,000 mls @ 100 mls/hr IVC .Q10H PRN PRN Reason: HYPOGLYCEMIA Stop: 02/08/18 07:49 Insulin Detemir (Levemir) 15 unit SQ DAILY [facility] Stop: 02/13/18 09:01 Last Admin: 08/17/17 09:50 Dose: 15 unit Insulin Detemir (Levemir) 45 unit SQ HS [facility] Stop: 02/13/18 21:01 Last Admin: 08/16/17 20:19 Dose: 45 unit Insulin Human Lispro (Humalog) 0 units SQ HS [facility] PRN Reason: Protocol Stop: 02/08/18 21:01 Last Admin: 08/16/17 20:36 Dose: 7 units Insulin Human Lispro (Humalog) 0 units SQ TIDAC MELO PRN Reason: Protocol Stop: 02/08/18 08:01 Last Admin: 08/17/17 11:57 Dose: 12 units Insulin Human Lispro (Humalog) 10 units SQ TIDWM [facility] Stop: 02/12/18 12:16 Last Admin: 08/17/17 11:58 Dose: Not Given Linezolid (Zyvox) 600 mg PO BID [facility] Stop: 02/11/18 09:01 Last Admin: 08/17/17 09:10 Dose: 600 mg Morphine Sulfate (Morphine Sulfate) 2 mg IVP Q4HR PRN PRN Reason: Severe Pain Stop: 02/12/18 18:40 Naloxone HCl (Narcan) 0.4 mg IVP Q2MIN PRN PRN Reason: Opioid Reversal Stop: 02/07/18 20:03 Ondansetron HCl (Zofran) 4 mg IVP Q8HR PRN PRN Reason: Nausea And Vomiting Stop: 02/07/18 20:03 Prednisone (Prednisone) 30 mg PO DAILY [facility] Stop: 02/13/18 18:06 Last Admin: 08/17/17 09:09 Dose: 30 mg Senna/Docusate Sodium (Senna Plus) 2 each PO BID PRN; Protocol PRN Reason: Constipation Stop: 02/09/18 12:45 Last Admin: 08/13/17 09:02 Dose: 2 each - Imaging and Cardiology Echo: report reviewed - EKG Interpretation EKG results cardiology: other (12 hr tele AVG HR 81 A-Fib/Flutter) Consult Discharge Plan - Plan Additional Instructions: pcp requested Dry dressing over the hematoma site on the left leg. Follow-up one week after discharge with Danyel sessions in clinic for the left leg hematoma. Referrals: Geremias Ryan DO [Primary Care Provider] - 08/24/17 1:00 pm Milton Ashton MD [Partnered Physician] - 09/01/17 1:15 pm
[2017-08-17] MEDS ORDERED: Insulin LISPRO 300 UNITS/3 ML VIAL SQ SCH (14:46)
[2017-08-17] MEDS: Diltiazem CD (24hr) 120 MG CAPSULE PO SCH (15:40)
--- NOTE | 2017-08-17 16:37 | Electrocardiograph Report ---
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
--- NOTE | 2017-08-17 17:55 | Internal Med Progress Note ---
Date of Encounter: 08/17/17 Time of Encounter: 11:00 - Assessment and plan (1) Atrial fibrillation and flutter Current Visit: Yes Status: Acute Assessment and plan: -Patient has been in atrial fibrillation with RVR on 2 separate occasions and both times was controlled with Cardizem bolus. -Cardiology consulted with recommendations to start daily oral Cardizem. -Will continue to monitor on telemetry (2) Acute exacerbation of chronic obstructive pulmonary disease (COPD) Current Visit: Yes Status: Acute Assessment and plan: -Patient without auscultated wheezes this morning -Continue bronchodilators and continue to taper steroids. (3) CAP (community acquired pneumonia) Current Visit: Yes Status: Acute Assessment and plan: -Will continue a 10 day course of Zyvox for MRSA and pneumonia per pulmonology recommendations. Qualifiers: Laterality: left Lung location: unspecified part of lung Qualified Code(s ): J18.9 - Pneumonia, unspecified organism (4) Acute exacerbation of CHF (congestive heart failure) Current Visit: Yes Status: Acute Assessment and plan: -Heart failure improving overall with decreasing pedal edema. -Will continue patient's oral Lasix with fluid restriction. Qualifiers: Congestive heart failure type: diastolic Qualified Code(s): I50.33 - Acute on chronic diastolic (congestive) heart failure (5) CKD (chronic kidney disease) stage 3, GFR 30-59 ml/min Current Visit: Yes Status: Chronic Assessment and plan: -Stable; continue to monitor (6) HTN (hypertension) Current Visit: Yes Status: Chronic Assessment and plan: Patient continues to have accelerated hypertension. Will continue CLONIDINE 0.3 MG 3 TIMES A DAY, HYDRALAZINE 100 MG 3 TIMES A DAY AND CARVEDILOL 25 mg BID Unable to add ADONAY inhibitor or ARB due to acute kidney injury that the patient developed; if renal function continues to improve to her baseline and she may be started on these medications. Continue IV hydralazine as needed intravenously to keep systolic blood pressure less than 160. Qualifiers: Hypertension type: essential hypertension Qualified Code(s): I10 - Essential (primary) hypertension (7) Acute and chronic respiratory failure with hypoxia Current Visit: Yes Status: Acute Assessment and plan: Presently on 2 L nasal cannula which is her baseline. (8) DVT prophylaxis Current Visit: No Status: Acute Assessment and plan: anticoagulated with Eliquis - Subjective Interval history: Patient again developed atrial fibrillation with RVR's morning and was given a bolus of Cardizem resulting in rate control and patient is now normotensive. - Constitutional Vitals: Temp Pulse Resp BP Pulse Ox 97.6 F 80 16 163/71 96 08/17/17 15:51 08/17/17 15:43 08/17/17 15:43 08/17/17 15:43 08/17/17 15:43 General appearance: Present: cooperative, A&O X 3, morbidly obese, pleasant, no acute distress, answers questions appropriately - Respiratory Respiratory exam: Present: CTAB. Absent: accessory muscle use, rales, rhonchi, wheezes - Cardiovascular Cardiovascular exam: Present: RRR, +S1, +S2. Absent: diastolic murmur, gallop, rubs, systolic murmur Internal Medicine: Result - Labs CBC & Chem 7: 08/17/17 08:41 08/17/17 08:41 Labs: Short CBC 08/17/17 Range/Units 08:41 WBC 19.3 H D (4.3-11.1) K/mcL Hgb 12.0 (11.5-15.4) g/dL Hct 38.8 (35.3-44.9) % Plt Count 329 D (140-400) K/mcL Neutrophils # 14.9 H (1.6-8.9) K/mcL BMP 08/17/17 08:41 Sodium 137 Potassium 3.6 Chloride 99 Carbon Dioxide 31 H BUN 53 H Creatinine 1.47 H Glucose 66 L Calcium 9.1 - ABG Interpretation ABG results: ABG ABG pH 7.37 pH Units (7.32-7.45) 08/09/17 06:57 ABG pCO2 43 mmHg (35-45) 08/09/17 06:57 ABG pO2 83 mmHg (85-104) L 08/09/17 06:57 ABG O2 Saturation 96 % (95-98) 08/09/17 06:57 PT/INR, D-dimer PT 19.5 Seconds (9.4-12.1) H 08/09/17 03:55 Consult Discharge Plan - Plan Additional Instructions: pcp requested Dry dressing over the hematoma site on the left leg. Follow-up one week after discharge with Danyel sessions in clinic for the left leg hematoma. Referrals: Geremias Ryan DO [Primary Care Provider] - 08/24/17 1:00 pm Milton Ashton MD [Partnered Physician] - 09/01/17 1:15 pm
--- NOTE | 2017-08-17 18:37 | Electrocardiograph Report ---
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
[2017-08-17] MEDS: ALPRAZolam 0.5 MG TABLET PO PRN (18:43)
[2017-08-17] MEDS ORDERED: Insulin DETEMIR 100 UNIT/ML X5UNITS SQ SCH (21:00)
[2017-08-18] MEDS: Ipratropium/Albuterol Neb 3 ML IH SCH ×3 (03:42→15:47)
[2017-08-18] MEDS: Insulin LISPRO 300 UNITS/3 ML VIAL SQ SCH ×6 (08:25→17:36)
[2017-08-18] MEDS: Aspirin Enteric Coated 81 MG Tablet PO SCH (08:30)
[2017-08-18] MEDS: APIXABAN 2.5 MG TABLET PO SCH (08:30)
[2017-08-18] MEDS: Furosemide 40 MG TABLET PO SCH (08:31)
[2017-08-18] MEDS: Linezolid 600 MG TABLET PO SCH (08:31)
[2017-08-18] MEDS: cloNIDine HCl 0.1 MG TABLET PO SCH ×2 (08:32→15:53)
[2017-08-18] MEDS: predniSONE 20 MG TABLET PO SCH (08:33)
[2017-08-18] MEDS: Diltiazem CD (24hr) 120 MG CAPSULE PO SCH (08:39)
[2017-08-18] MEDS: hydrALAZINE 25 MG TABLET PO SCH ×2 (08:39→15:52)
[2017-08-18 08:57] LABS: Basophils % 0.1 %; Eosinophils % 0.8 %; Hematocrit 36.7 % (35.3-44.9); Hemoglobin 11.6 g/dL (11.5-15.4); Immature Granulocytes % 0.6 % (0-4); Mean Corpuscular HGB Conc 31.6 g/dL (31.6-35.5); Mean Corpuscular Hemoglobin 26.4 pg (28.0-33.3); Mean Corpuscular Volume 83.4 fL (83.0-100.0); Mean Platelet Volume 11.3 fL (9.4-12.4); Monocytes % 10.8 %; Platelet Count 232 K/mcL (140-400); Segmented Neutrophils % 72.7 %
[2017-08-18 08:58] LABS: Eosinophils # 0.1 K/mcL (0.0-0.6); Monocytes # 1.4 K/mcL (0.0-1.3); Neutrophils # 9.5 K/mcL (1.6-8.9)
[2017-08-18 09:15] LABS: Calcium 9.1 mg/dL (8.6-10.3); Potassium 3.5 mEq/L (3.5-5.1)
--- NOTE | 2017-08-18 11:20 | Event Note ---
Date of Encounter: 08/18/17 Time of Encounter: 11:19 - Cardiology Event Note Pt is in rate controlled A-Flutter, better controlled with addition of PO Cardizem. Continue Cardizem CD 120mg daily and Coreg 25mg BID. 24 hr tele AVG HR 74. Cardiology signing off. Reconsult PRN. Will coordinate outpt follow-up.
--- NOTE | 2017-08-18 15:25 | Discharge Summary ---
Date of Encounter: 08/18/17 Time of Encounter: 11:00 - Discharge Diagnosis (1) Atrial fibrillation and flutter Priority: Primary Status: Acute (2) Acute exacerbation of chronic obstructive pulmonary disease (COPD) Priority: Primary Status: Acute (3) CAP (community acquired pneumonia) Priority: Primary Status: Acute Qualifiers: Laterality: left Lung location: unspecified part of lung Qualified Code(s ): J18.9 - Pneumonia, unspecified organism (4) Acute exacerbation of CHF (congestive heart failure) Priority: Primary Status: Acute Qualifiers: Congestive heart failure type: diastolic Qualified Code(s): I50.33 - Acute on chronic diastolic (congestive) heart failure (5) CKD (chronic kidney disease) stage 3, GFR 30-59 ml/min Priority: Secondary Status: Chronic (6) HTN (hypertension) Priority: Secondary Status: Chronic Qualifiers: Hypertension type: essential hypertension Qualified Code(s): I10 - Essential (primary) hypertension (7) Acute and chronic respiratory failure with hypoxia Priority: Primary Status: Acute - Discharge Medications Prescriptions: Carvedilol [Coreg] 25 mg PO BIDWM #60 tablet Diltiazem CD (24hr) [Cardizem CD] 120 mg PO DAILY #30 cap.er.24h Linezolid [Zyvox] 600 mg PO BID 14 Days #28 tablet predniSONE [PredniSONE] 20 mg PO DAILY 5 Days #5 tablet Home Medications: Aspirin [Adult Low Dose Aspirin EC] 81 mg PO DAILY 11/15/15 [History] Insulin ASPART [Novolog Flexpen] 15 unit SQ TIDWM 11/15/15 [History] Insulin Glargine,Hum.rec.anlog [Lantus Solostar] 50 unit SQ HS 11/15/15 [History ] Metoprolol Tartrate [Lopressor] 50 mg PO BID 11/15/15 [History] Ferrous Sulfate 325 mg PO DAILY 11/29/16 [History] Hydralazine HCl 100 mg PO TID 11/29/16 [History] [place]-3/Dha/Epa/Fish Oil [Fish Oil 1,000 mg Softgel] 1 cap PO DAILY 11/29/16 [ History] cloNIDine HCl [Clonidine HCl] 0.3 mg PO TID #90 tab 03/05/17 [Rx] Albuterol Sulfate [Proair Hfa] 1 puff IH Q4H PRN #1 inh 05/11/17 [Rx] Furosemide [Lasix] 40 mg PO DAILY #7 tablet 08/07/17 [Rx] Potassium Bicarbonate/Cit AC [Potassium 25 Meq Tablet Eff] 25 meq PO DAILY #7 tablet.eff 08/07/17 [Rx] ALPRAZolam [Xanax 0.5 MG Tablet] 0.5 mg PO BID PRN 08/08/17 [History] Apixaban [Eliquis] 2.5 mg PO BID 08/08/17 [History] Carvedilol 12.5 mg PO BID 08/08/17 [History] Pravastatin Sodium [Pravachol] 80 mg PO QPM 08/08/17 [History] Carvedilol [Coreg] 25 mg PO BIDWM #60 tablet 08/18/17 [Rx] Diltiazem CD (24hr) [Cardizem CD] 120 mg PO DAILY #30 cap.er.24h 08/18/17 [Rx] Linezolid [Zyvox] 600 mg PO BID 14 Days #28 tablet 08/18/17 [Rx] predniSONE [PredniSONE] 20 mg PO DAILY 5 Days #5 tablet 08/18/17 [Rx] Allergies/Adverse Reactions: 3 Allergy/AdvReac Type Severity Reaction Status Date / Time Sulfa (Sulfonamide Allergy Swelling Verified 08/08/17 14:45 Antibiotics) of Lip/Tongue/Throat Procedures/tests Complete & Pending: Procedures Performed prior 72 hours Category Date Time Status ECG 12 lead ECG [ECG] Routine Y 08/17/17 09:32 Completed EKG [ECG 12 lead ECG] [ECG] Stat Y 08/16/17 15:44 Completed Date of admission: 08/08/17 20:02 Primary care physician: Geremias Ryan DO Consults: 08/08/17 20:23 Consult to Wound Care [CONS] Routine Reason for Consult: Patient has wound to right knee and just had wound vac performed in [place]. Also has two places on RLE which need addressed with recommnendations for daily wound care regimen. Call Completed: No 08/09/17 10:34 Consult to Cardiology [CONS] Routine Comment: Consulting Provider: Cardiology Es Reason for Consult: Recent AFIB diagnois in the last 30 days. Time Notified: 10:35 Call Completed: Yes 08/09/17 14:26 Consult to Pulmonology [CONS] Routine Consulting Provider: [facility] Reason for Consult: acute respiratory distress Call Completed: Yes 08/11/17 10:04 Consult to Podiatry [CONS] Routine Consulting Provider: [facility] Reason for Consult: Right lower leg cyst/ hematoma Time Notified: 10:05 Call Completed: Yes 08/14/17 13:18 Consult to Physical Therapy [CONS] Routine Comment: Evaluate, develop and implement POC Reason for Consult: need to re evaluate after right lower extremity hematoma evacuation, poss rehab 08/14/17 13:19 Consult to Occupational Therapy [CONS] Routine Comment: Evaluate, develop and implement POC Reason for Consult: re-evaluate after right lower extremity hematoma evacuation, possible rehab - Patient Status Disposition: Home Health Service Condition: Fair - Discharge Instructions Follow Up With: Benji Diana MD [Non-Partnered Physician] - 08/29/17 9:00 am Geremias Ryan DO [Primary Care Provider] - 08/24/17 1:00 pm Milton Ashton MD [Partnered Physician] - 09/01/17 1:15 pm Additional Instructions: pcp requested Dry dressing over the hematoma site on the left leg. Follow-up one week after discharge with Danyel sessions in clinic for the left leg hematoma. Hospital course: Patient is a 71-year-old female with past medical history significant for arthritis, asthma, atrial fibrillation (diagnosed 3 weeks ago) cancer of multiple sites (knee, colon, and renal), CHF, COPD, CAD, diabetes controlled with insulin, HLD, HTN, and previous myocardial infarction in February 2017 who presented to the ER on 08/08/17 with shortness of breath. Patient reported a 3 day history of shortness of breath prior to admission in addition to increased abdominal girth and bilateral lower extremity edema so decided to come to the ER for evaluation. In the ER, patient was found to be septic secondary to pneumonia identified on imaging. Patient was admitted to the medical surgical floor for further management and evaluation. During patients hospital stay, blood cultures were positive for MRSA and patient was treated with Zyvox for sepsis secondary to pneumonia due to MRSA. In addition, patient was also treated for acute on chronic diastolic heart failure with IV diuresis. Patient also developed paroxysmal atrial fibrillation with RVR and was treated with IV Cardizem. Cardiology was consulted with recommendations to continue oral Cardizem as outpatient. Patient will be discharged with home health to continue a 14 day course of Zyvox for MRSA pneumonia. She will also start oral Cardizem for rate control of atrial fibrillation. She will follow-up with primary care provider as an outpatient. - Time Spent with Patient Total time spent providing and/or coordinating discharge services: Less than 30 minutes - Constitutional Vitals: Temp Pulse Resp BP Pulse Ox 98.2 F 71 17 145/74 96 08/18/17 11:00 08/18/17 11:00 08/18/17 11:00 08/18/17 11:00 08/18/17 11:00 General appearance: Present: cooperative, A&O X 3, morbidly obese, pleasant, no acute distress, answers questions appropriately - Respiratory Respiratory exam: Present: wheezes - Cardiovascular Cardiovascular exam: Present: RRR, +S1, +S2. Absent: diastolic murmur, gallop, rubs, systolic murmur
--- NOTE | 2017-08-18 15:27 | Physician Discharge Referral ---
Home Health/Hosp Referral Info Transfer to: Home Health - Diagnosis (1) Atrial fibrillation and flutter Priority: Primary Status: Acute (2) Acute exacerbation of chronic obstructive pulmonary disease (COPD) Priority: Primary Status: Acute (3) CAP (community acquired pneumonia) Priority: Primary Status: Acute (4) Acute exacerbation of CHF (congestive heart failure) Priority: Primary Status: Acute (5) CKD (chronic kidney disease) stage 3, GFR 30-59 ml/min Priority: Secondary Status: Chronic (6) HTN (hypertension) Priority: Secondary Status: Chronic (7) Acute and chronic respiratory failure with hypoxia Priority: Secondary Status: Acute - Respiratory Orders Oxygen / L per min Smoking Cessation: Smoking cessation has been advised. For more information, call the [place] Tobacco Quit Line at 9-169-IDLG-NOW. - Services Needed Following services are medically necessary services: Nursing - Transfer Medications Prescriptions: Carvedilol [Coreg] 25 mg PO BIDWM #60 tablet Diltiazem CD (24hr) [Cardizem CD] 120 mg PO DAILY #30 cap.er.24h Linezolid [Zyvox] 600 mg PO BID 14 Days #28 tablet predniSONE [PredniSONE] 20 mg PO DAILY 5 Days #5 tablet Home Medications: Aspirin [Adult Low Dose Aspirin EC] 81 mg PO DAILY 11/15/15 [History] Insulin ASPART [Novolog Flexpen] 15 unit SQ TIDWM 11/15/15 [History] Insulin Glargine,Hum.rec.anlog [Lantus Solostar] 50 unit SQ HS 11/15/15 [History ] Metoprolol Tartrate [Lopressor] 50 mg PO BID 11/15/15 [History] Ferrous Sulfate 325 mg PO DAILY 11/29/16 [History] Hydralazine HCl 100 mg PO TID 11/29/16 [History] [place]-3/Dha/Epa/Fish Oil [Fish Oil 1,000 mg Softgel] 1 cap PO DAILY 11/29/16 [ History] cloNIDine HCl [Clonidine HCl] 0.3 mg PO TID #90 tab 03/05/17 [Rx] Albuterol Sulfate [Proair Hfa] 1 puff IH Q4H PRN #1 inh 05/11/17 [Rx] Furosemide [Lasix] 40 mg PO DAILY #7 tablet 08/07/17 [Rx] Potassium Bicarbonate/Cit AC [Potassium 25 Meq Tablet Eff] 25 meq PO DAILY #7 tablet.eff 08/07/17 [Rx] ALPRAZolam [Xanax 0.5 MG Tablet] 0.5 mg PO BID PRN 08/08/17 [History] Apixaban [Eliquis] 2.5 mg PO BID 08/08/17 [History] Carvedilol 12.5 mg PO BID 08/08/17 [History] Pravastatin Sodium [Pravachol] 80 mg PO QPM 08/08/17 [History] Carvedilol [Coreg] 25 mg PO BIDWM #60 tablet 08/18/17 [Rx] Diltiazem CD (24hr) [Cardizem CD] 120 mg PO DAILY #30 cap.er.24h 08/18/17 [Rx] Linezolid [Zyvox] 600 mg PO BID 14 Days #28 tablet 08/18/17 [Rx] predniSONE [PredniSONE] 20 mg PO DAILY 5 Days #5 tablet 08/18/17 [Rx] Allergies/Adverse Reactions: 3 Allergy/AdvReac Type Severity Reaction Status Date / Time Sulfa (Sulfonamide Allergy Swelling Verified 08/08/17 14:45 Antibiotics) of Lip/Tongue/Throat Certification: Further, I certify that my clinical findings support that this patient is homebound (i.e. absences from home require considerable and taxing effort and are for medical reasons or caodaism services or infrequently or short duration when for other reasons) because: Homebound Reason: Leaving home requires considerable and taxing effort due to condition Attestation: My signature below is to certify that this patient is under my care and that I, or nurse practitioner, or a physician's elementary assistant principal working with me, has a face-to -face encounter with this patient.
[2017-08-18 15:51] VITALS: BP 161/80
[2017-08-18] MEDS ORDERED: Insulin DETEMIR 100 UNIT/ML X5UNITS SQ SCH (21:00)
== END 2017-08-18 17:52 | disposition home health service (06) | DRG 871 ==
LOC: 2NENU 14:44 → EMEROO 14:44 → 2NENU 17:42 → SUATTDRO 20:02
PROVIDERS: ADMIT Nurse Practitioner Family; ATTEND Hospitalist

== ENCOUNTER 2017-09-22 19:52 | Inpatient (IN) ==
[2017-09-22] MEDS ORDERED: Clindamycin 600 MG/50 ML 600 MG/50 ML IV.SOLN IVPB ONE (21:23)
--- NOTE | 2017-09-22 21:24 | Emergency Department Note ---
Disposition Clinical Impression: Cellulitis of left hand, Pain in left hand Dog bite Qualifiers: Encounter type: subsequent encounter Qualified Code(s): W54.0XXD - Bitten by dog, subsequent encounter Disposition: Admitted As Inpatient Condition: Good Referrals: Geremias Ryan DO [Primary Care Provider] - Forms: ED Satisfaction Letter Time of Disposition: 23:54 Animal Bite HPI - General Chief Complaint: ED Animal Bite Stated Complaint: Dog bite L hand Time Seen by Provider: 09/22/17 21:00 Source: patient Mode of arrival: wheelchair Limitations: no limitations Nursing Notes Reviewed: Yes Vital Signs Reviewed: Yes - History of Present Illness HPI Narrative: Patient is a 71-year-old female who recently suffered a dog bite injury to the left hand approximately 7-8 days ago. She was seen at that time, was placed on Augmentin and had her tetanus updated. She presents today due to worsening left hand pain, swelling, redness despite being on antibiotics. She also has pain with flexion and extension of all digits of the left hand. She states that the dog that bit her was a family member's yoni, the dog is being quarantined and per patient had up to date rabies vaccines. She denies any other injuries, chest pain, shortness breath, nausea, vomiting, fevers, diarrhea , abdominal pain. She is on Eliquis for a fib. - Related Data Home Medications Medication Instructions Recorded Confirmed Aspirin [Adult Low Dose Aspirin EC] 81 mg PO DAILY 11/15/15 09/22/17 Insulin ASPART [Novolog Flexpen] 15 unit SQ TIDWM MDD + SS 11/15/15 09/22/17 Insulin Glargine,Hum.rec.anlog 50 unit SQ HS 11/15/15 09/22/17 [Lantus Solostar] Ferrous Sulfate 325 mg PO DAILY 11/29/16 09/22/17 Hydralazine HCl 100 mg PO TID 11/29/16 09/22/17 [place]-3/Dha/Epa/Fish Oil [Fish Oil 1 cap PO DAILY 11/29/16 09/22/17 1,000 mg Softgel] ALPRAZolam [Xanax 0.5 MG Tablet] 0.5 mg PO BID PRN 08/08/17 09/22/17 Apixaban [Eliquis] 2.5 mg PO BID 08/08/17 09/22/17 Pravastatin Sodium [Pravachol] 80 mg PO QPM 08/08/17 09/22/17 Amoxicillin/Clavulanate [Augmentin] 875 mg PO BID 09/22/17 09/22/17 HYDROcodone/Acet 5/325 mg [[place] 1 tab PO Q8H PRN 09/22/17 09/22/17 5-325 mg] Oxygen 2 l NS AD 09/22/17 09/22/17 Previous Rx's Medication Instructions Recorded cloNIDine HCl [Clonidine HCl] 0.3 mg PO TID #90 tab 03/05/17 Albuterol Sulfate [Proair Hfa] 1 puff IH Q4H PRN #1 inh 05/11/17 Furosemide [Lasix] 40 mg PO DAILY #7 tablet 08/07/17 Potassium Bicarbonate/Cit AC 25 meq PO DAILY #7 tablet.eff 08/07/17 [Potassium 25 Meq Tablet Eff] Carvedilol [Coreg] 25 mg PO BIDWM #60 tablet 08/18/17 Diltiazem CD (24hr) [Cardizem CD] 120 mg PO DAILY #30 cap.er.24h 08/18/17 Spironolactone [Aldactone] 50 mg PO DAILY #10 tablet 09/13/17 Allergies Allergy/AdvReac Type Severity Reaction Status Date / Time Sulfa (Sulfonamide Allergy Swelling Verified 09/13/17 14:09 Antibiotics) of Lip/Tongue/Throat All systems ED: reviewed and negative except as stated. Constitutional: Denies: fever Cardiovascular: Denies: chest pain, palpitations Respiratory: Denies: cough, dyspnea, wheezes, hemoptysis Gastrointestinal: Denies: abdominal pain, nausea, vomiting, diarrhea Musculoskeletal: Reports: arthralgia Neurological: Denies: headache, weakness, numbness, paresthesias Past Medical History - Past Medical History Attestation: Yes The following information was validated with the patient. Source: patient Medical history: Reports: arthritis, asthma, atrial fibrillation, cancer, CHF, COPD, coronary artery disease, diabetes, hyperlipidemia, hypertension, myocardial infarction Surgical history: Reports: angioplasty/stent (x2), cholecystectomy, colectomy ( For colon cancer), coronary bypass (CABG) (Triple), other (Left nephrectomy for renal cell carcinoma, soft tissue sarcoma excision recently) Psychiatric history: Reports: anxiety, depression FOUNDER AND PRESIDENT history: Reports: no FOUNDER AND PRESIDENT history - Social History Smoking Status: Never smoker Smokeless Tobacco Status: No Alcohol use: Reports: none Drug use: Reports: none Physical Exam - General Limitations: no limitations General appearance: alert, in no apparent distress - Head Head exam: atraumatic, normocephalic, normal inspection - Eye Eye exam: Present: normal appearance, PERRL, EOMI - ENT ENT exam: normal exam, normal oropharynx, mucous membranes moist - Neck Neck exam: Present: normal inspection, full ROM, trachea midline - Chest Chest inspection: Present: normal inspection, symmetric chest wall rise - Respiratory Respiratory exam: Present: normal lung sounds bilaterally - Cardiovascular Cardiovascular exam: Present: regular rate, normal rhythm, normal heart sounds - Abdominal Exam Abdominal exam: Present: soft, Non-Tender. Absent: tenderness, distention, guarding, rebound, rigidity - Extremities Exam Extremities exam: Present: other (Edema of the dorsal aspect of the hand with puncture wound, associated surrounding erythema and bruising, possible subcutaneous hematoma. Bruising of Palm and distal tips of all fingers. Cap refill less than 3 seconds on all digits of the left hand. She is able to flex and extend all digits of the left hand but has pain with extension of all digits. Sensation to light touch intact of the entire left hand.) - Neurological Exam Neurological exam: Present: alert, oriented X3 - Psychiatric Psychiatric exam: Present: normal affect, normal mood - Skin Skin exam: Present: warm, dry, intact, normal color Course Course Narrative: Patient was hypetensive, otherwise, the rest of vitals are within normal limits on my exam. Physical exam shows: Edema of the dorsal aspect of the hand with puncture wound, associated surrounding erythema and bruising, possible subcutaneous hematoma. Bruising of Palm and distal tips of all fingers. Cap refill less than 3 seconds on all digits of the left hand. She is able to flex and extend all digits of the left hand but has pain with extension of all digits. Sensation to light touch intact of the entire left hand. X-ray the hand was obtained which showed: Large amount of medial and dorsal soft tissue swelling. There is ill definition/periosteal reaction involving the medial cortex of the base of the 5th metacarpal. Correlation for healing fracture or osteoma is recommended. MRI would be helpful to further evaluate. Patient was started on IV clindamycin and given pain medication. We will admit the patient for failed outpatient treatment of dog bite of left hand. Patient will need consultation and assessment by hand surgery once she is admitted. Vital Signs Temperature 98.3 F 09/22/17 20:09 Pulse Rate 66 09/22/17 20:09 Respiratory Rate 22 09/22/17 20:09 Blood Pressure 205/95 09/22/17 20:09 O2 Sat by Pulse Oximetry 94 09/22/17 20:09 Temperature 98.3 F 09/22/17 20:09 Pulse Rate 61 09/22/17 23:37 Respiratory Rate 20 09/22/17 23:37 Blood Pressure 164/76 09/22/17 23:37 O2 Sat by Pulse Oximetry 96 09/22/17 23:37 Oxygen Delivery Oxygen Delivery Room Air Animal Bite - MDM Narrative Medical decision making narrative: Patient was hypetensive, otherwise, the rest of vitals are within normal limits on my exam. Physical exam shows: Edema of the dorsal aspect of the hand with puncture wound, associated surrounding erythema and bruising, possible subcutaneous hematoma. Bruising of Palm and distal tips of all fingers. Cap refill less than 3 seconds on all digits of the left hand. She is able to flex and extend all digits of the left hand but has pain with extension of all digits. Sensation to light touch intact of the entire left hand. X-ray the hand was obtained which showed: Large amount of medial and dorsal soft tissue swelling. There is ill definition/periosteal reaction involving the medial cortex of the base of the 5th metacarpal. Correlation for healing fracture or osteoma is recommended. MRI would be helpful to further evaluate. Patient was started on IV clindamycin and given pain medication. We will admit the patient for failed outpatient treatment of dog bite of left hand. Patient will need consultation and assessment by hand surgery once she is admitted. - Lab Data Lab results reviewed: Yes I reviewed the patient's lab results. Result diagrams: 09/22/17 21:45 09/22/17 22:38 Lab Results 09/22/17 09/22/17 09/22/17 Range/Units 21:45 21:45 22:38 WBC 10.4 (4.3-11.1) K/mcL RBC 3.60 L (3.82-4.97) M/mcL Hgb 9.9 L (11.5-15.4) g/dL Hct 31.6 L (35.3-44.9) % MCV 87.8 (83.0-100.0) fL MCH 27.5 L (28.0-33.3) pg MCHC 31.3 L (31.6-35.5) g/dL RDW 19.7 H (11.5-14.5) % Plt Count 299 (140-400) K/mcL MPV 11.6 (9.4-12.4) fL Immature Gran % 1.0 (0-4) % Seg Neutrophils % 79.1 % Lymphocytes % 7.9 % Monocytes % 11.0 % Eosinophils % 0.5 % Basophils % 0.5 % Neutrophils # 8.3 (1.6-8.9) K/mcL Lymphocytes # 0.8 (0.6-4.6) K/mcL Monocytes # 1.2 (0.0-1.3) K/mcL Eosinophils # 0.1 (0.0-0.6) K/mcL Basophils # 0.1 (0.0-0.2) K/mcL PT 16.3 H (9.4-12.1) Seconds INR 1.5 APTT 31.6 (26.0-36.0) Seconds Sodium TNP Potassium TNP Chloride TNP Carbon Dioxide TNP BUN TNP Creatinine TNP Est GFR ( Amer) NUT BLANKER OPERATOR Est GFR (Non-Af Amer) TNP BUN/Creatinine Ratio NUT BLANKER OPERATOR Glucose TNP Calculated Osmolality NUT BLANKER OPERATOR Calcium TNP 09/22/17 Range/Units 22:38 WBC (4.3-11.1) K/mcL RBC (3.82-4.97) M/mcL Hgb (11.5-15.4) g/dL Hct (35.3-44.9) % MCV (83.0-100.0) fL MCH (28.0-33.3) pg MCHC (31.6-35.5) g/dL RDW (11.5-14.5) % Plt Count (140-400) K/mcL MPV (9.4-12.4) fL Immature Gran % (0-4) % Seg Neutrophils % % Lymphocytes % % Monocytes % % Eosinophils % % Basophils % % Neutrophils # (1.6-8.9) K/mcL Lymphocytes # (0.6-4.6) K/mcL Monocytes # (0.0-1.3) K/mcL Eosinophils # (0.0-0.6) K/mcL Basophils # (0.0-0.2) K/mcL PT (9.4-12.1) Seconds INR APTT (26.0-36.0) Seconds Sodium 131 L Potassium 5.0 Chloride 95 L Carbon Dioxide 30 H BUN 21 Creatinine 1.61 H Est GFR ( Amer) 38 L Est GFR (Non-Af Amer) 31 L BUN/Creatinine Ratio 13 Glucose 327 H Calculated Osmolality 288 Calcium 8.9 - Radiology Data Radiology results reviewed: Yes I reviewed the patient's radiology results. S.B.A.R. - S.B.A.R. Situation: Demographics, MOA Background: Presenting Complaint, Relevant PMH, Meds, & Allergies Assessment: Vital Signs, Course and respsone to treatment, Exam Concerns, Patient/Family Expectation, Pertinant Lab Results, Outstanding Labs Recommendation: Barrier(s) to disposition, Recommendation based on pending studies, treatments, or consults S.B.A.R. Report Given to: Dr. Altman
--- NOTE | 2017-09-22 21:24 | Emergency Department Note ---
START Narrative - START START: I examined this patient and my medical decision-making was reviewed with the Resident Physician, Clyde Ardon. I agree with the documented findings, disposition and treatment plan as described except to the extent set forth below. I have personally performed a face to face evaluation on this patient. I have reviewed and agree with the care plan. Briefly: 71-year-old exgem-seoa-yflmqsky female presents wheelchair, by family members for dog bite dorsum of left hand. Patient is right-hand- dominant tetanus is up-to-date was bitten by her daughters February on Monday was seen in outside facility started on Augmentin. Despite the antibiotics that she has been taking as directed she has increased pain swelling warmth and redness on the dorsum of her left hand. Denies fevers chills weakness or numbness. She has no signs of acute neurovascular compromise shows some swelling and erythema and warmth to the area and including some ecchymosis and what looks that hematoma. Patient had screening labs. Get IV clindamycin plain film of the hand checked for gas and/or osteal. Patient will be admitted for infected dog bite failed outpatient therapy. Admission disposition pending
[2017-09-22 22:00] LABS: Basophils # 0.1 K/mcL (0.0-0.2); Basophils % 0.5 %; Eosinophils # 0.1 K/mcL (0.0-0.6); Eosinophils % 0.5 %; Hematocrit 31.6 % (35.3-44.9); Hemoglobin 9.9 g/dL (11.5-15.4); Lymphocytes # 0.8 K/mcL (0.6-4.6); Lymphocytes % 7.9 %; Mean Corpuscular HGB Conc 31.3 g/dL (31.6-35.5); Mean Corpuscular Hemoglobin 27.5 pg (28.0-33.3); Mean Corpuscular Volume 87.8 fL (83.0-100.0); Mean Platelet Volume 11.6 fL (9.4-12.4); Monocytes # 1.2 K/mcL (0.0-1.3); Neutrophils # 8.3 K/mcL (1.6-8.9); Platelet Count 299 K/mcL (140-400); Red Cell Distribution Width 19.7 % (11.5-14.5); Segmented Neutrophils % 79.1 %
[2017-09-22 22:08] LABS: INR 1.5; Prothrombin Time 16.3 Seconds (9.4-12.1)
[2017-09-22 22:11] LABS: Activated Partial Thrombo Time 31.6 Seconds (26.0-36.0)
[2017-09-22 23:11] LABS: Calcium 8.9 mg/dL (8.6-10.3)
[2017-09-22] MEDS ORDERED: ALPRAZolam 0.5 MG TABLET PO PRN (23:19)
[2017-09-22] MEDS ORDERED: *HR* OxyCODONE Immed Rel 5 MG TABLET PO PRN (23:22)
[2017-09-22] MEDS ORDERED: Naloxone 0.4 MG/ML INJ IVP PRN (23:22)
--- NOTE | 2017-09-22 23:32 | Internal Med History&Physical ---
Date of Encounter: 09/22/17 Time of Encounter: 23:28 Assessment and Plan (1) Dog bite of extremity Current visit: Yes Status: Acute with overlying cellulitis, need to r/o developing abscess consult surgery to eval in the morning hold eliquis for aFib IV zosyn (2) Diabetes 1.5, managed as type 1 Current visit: Yes Status: Acute Insulin long acting, FD and ISS (3) Atrial fibrillation and flutter Current visit: No Status: Acute continue rate control agents hold eliquis pending surgical eval check EKG in a.m (4) CHF (congestive heart failure) Current visit: No Status: Chronic compensation. continue lasix hold IVF for now Qualifiers: Congestive heart failure type: diastolic Congestive heart failure chronicity: acute on chronic Qualified Code(s): I50.33 - Acute on chronic diastolic (congestive) heart failure (5) CKD (chronic kidney disease) stage 3, GFR 30-59 ml/min Current visit: No Status: Chronic trend for now (6) HTN (hypertension) Current visit: No Status: Chronic continue med Qualifiers: Hypertension type: essential hypertension Qualified Code(s): I10 - Essential (primary) hypertension (7) Coronary artery disease Current visit: No Status: Chronic CAD s/p cabg. Recent LA last year s/p [facility] but w/o need for stenting per report Qualifiers: Coronary Disease-Associated Artery/Lesion type: bypass graft [place] vs. transplanted heart: [place] heart Associated angina: without angina Qualified Code(s): I25.810 - Atherosclerosis of coronary artery bypass graft(s) without angina pectoris Internal Medicine - H&P: HPI Chief complaint: swelling of left hand from dog bite History of present illness: Ms. Hitchcock is a 71 year old female who presents with worsening swelling of left hand from dog bite. She was bitten by a [place] dog on monday and went to [facility] and was sent home on augmentin which she has been taking since with no improvement. Symptoms worsen with increasing pain and swelling. Failed home augmentin regimen. Associated with increasing swelling but sensation remains intact. She has co-morbid CAD s/p LA and CABG 2013, AFib on eliquis, cardizem, IDDM, HTN , HLD. She uses 2 L at baseline. 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 There is ill definition/periosteal reaction involving the medial cortex of the base of the 5th metacarpal. Correlation for healing fracture or osteoma is recommended. MRI would be helpful to further evaluate. Past Med Surg Social Fam HX - Past Medical History Medical history: arthritis, asthma, atrial fibrillation, cancer, CHF, COPD, coronary artery disease, diabetes, hyperlipidemia, hypertension, myocardial infarction Psychiatric history: anxiety, depression - Past Surgical History Surgical History: angioplasty/stent (x2), cholecystectomy, colectomy (For colon cancer), coronary bypass (CABG) (Triple), other (Left nephrectomy for renal cell carcinoma, soft tissue sarcoma excision recently) - Social History Smoking Status: Never smoker Smokeless Tobacco Status: No Alcohol use: none Drug use: none - Family History Father Family Member Ethnicity: Non- Living Status: Hx Family Cardiac Disorders: Yes (CHF, CAD, LA) Brother Family Member Ethnicity: Non- Living Status: Hx Family Cancer: Yes (Throat) Sister Family Member Ethnicity: Non- Living Status: Hx Family Respiratory Disorders: Yes (Emphysema) Hx Family Cancer: Yes (Breast) Mother Family Member Ethnicity: Non- Living Status: Hx Family Cardiac Disorders: No Hx Family Respiratory Disorders: No Hx Family Cancer: Yes (Colon) Hx Family GI Disorders: No Hx Family Endocrine Disorder: No Hx Family Neuromuscular Disorders: No Hx Family Neurologic Disorders: No Hx Family HEENT Disorders: No Hx Family Autoimmune Disorders: No Internal Medicine - H&P: Meds Aspirin [Adult Low Dose Aspirin EC] 81 mg PO DAILY 11/15/15 [History] Insulin ASPART [Novolog Flexpen] 15 unit SQ TIDWM MDD + SS 11/15/15 [History] Insulin Glargine,Hum.rec.anlog [Lantus Solostar] 50 unit SQ HS 11/15/15 [History ] Ferrous Sulfate 325 mg PO DAILY 11/29/16 [History] Hydralazine HCl 100 mg PO TID 11/29/16 [History] [place]-3/Dha/Epa/Fish Oil [Fish Oil 1,000 mg Softgel] 1 cap PO DAILY 11/29/16 [ History] cloNIDine HCl [Clonidine HCl] 0.3 mg PO TID #90 tab 03/05/17 [Rx] Albuterol Sulfate [Proair Hfa] 1 puff IH Q4H PRN #1 inh 05/11/17 [Rx] Furosemide [Lasix] 40 mg PO DAILY #7 tablet 08/07/17 [Rx] Potassium Bicarbonate/Cit AC [Potassium 25 Meq Tablet Eff] 25 meq PO DAILY #7 tablet.eff 08/07/17 [Rx] ALPRAZolam [Xanax 0.5 MG Tablet] 0.5 mg PO BID PRN 08/08/17 [History] Apixaban [Eliquis] 2.5 mg PO BID 08/08/17 [History] Pravastatin Sodium [Pravachol] 80 mg PO QPM 08/08/17 [History] Carvedilol [Coreg] 25 mg PO BIDWM #60 tablet 08/18/17 [Rx] Diltiazem CD (24hr) [Cardizem CD] 120 mg PO DAILY #30 cap.er.24h 08/18/17 [Rx] Spironolactone [Aldactone] 50 mg PO DAILY #10 tablet 09/13/17 [Rx] Amoxicillin/Clavulanate [Augmentin] 875 mg PO BID 09/22/17 [History] HYDROcodone/Acet 5/325 mg [[place] 5-325 mg] 1 tab PO Q8H PRN 09/22/17 [History] Oxygen 2 l NS AD 09/22/17 [History] 3 Allergy/AdvReac Type Severity Reaction Status Date / Time Sulfa (Sulfonamide Allergy Swelling Verified 09/13/17 14:09 Antibiotics) of Lip/Tongue/Throat All Systems PM: A 10-system review of systems was performed and is negative for pertinent findings except as documented above in the HPI. Review of systems: ROS 14 point review of systems reviewed as best as possible given presentation. Pertinent positive or negative as per HPI or otherwise reviewed as negative - Constitutional Vitals: Temp Pulse Resp BP Pulse Ox 98.3 F 66 22 205/95 94 09/22/17 20:09 09/22/17 20:09 09/22/17 20:09 09/22/17 20:09 09/22/17 20:09 Exam: General - AAO x 3 Psych - Appropriate affect/speech. No agitation Eyes - DEMETRIUS. Eye lids intact. No scleral icterus Neuro - No gross peripheral or central neuro deficits on inspection Heart - Sinus. RRR. S1 and S2 present. No added HS/murmurs appreciated. No elevated JVD appreciated. Lung - Adequate air entry b/l, No crackles/wheezes appreciated GI - Soft, non-tender. No hepatosplenomegaly/ascites. BS+ - No CVA/suprapubic tenderness or palpable bladder distension Skin - swelling of left hand with ecchymosis, warmth and TTP. Area of flutuance noted Internal Med - H&P Results - Labs CBC & Chem 7: 09/22/17 21:45 09/22/17 22:38 Labs: Short CBC 09/22/17 Range/Units 21:45 WBC 10.4 (4.3-11.1) K/mcL Hgb 9.9 L (11.5-15.4) g/dL Hct 31.6 L (35.3-44.9) % Plt Count 299 (140-400) K/mcL Neutrophils # 8.3 (1.6-8.9) K/mcL BMP 09/22/17 09/22/17 22:38 22:38 Sodium TNP 131 L Potassium TNP 5.0 Chloride TNP 95 L Carbon Dioxide TNP 30 H BUN TNP 21 Creatinine TNP 1.61 H Glucose TNP 327 H Calcium TNP 8.9
[2017-09-22] MEDS ORDERED: *HR* FentaNYL (PF) 100 MCG/2 ML VIAL IVP ONE (23:40)
[2017-09-22] MEDS ORDERED: Piperacillin/Tazobactam 2.25 GM in D5% in Water (Mini-Bag+) 100 ML IVPB SCH (23:45)
[2017-09-23] MEDS: Piperacillin/Tazobactam 3.375 GM/200 ML BAG IVPB SCH ×3 (01:47→17:48)
[2017-09-23 04:02] LABS: Basophils # 0.1 K/mcL (0.0-0.2); Basophils % 0.7 %; Eosinophils # 0.1 K/mcL (0.0-0.6); Hematocrit 29.5 % (35.3-44.9); Hemoglobin 8.9 g/dL (11.5-15.4); Immature Granulocytes % 0.6 % (0-4); Mean Corpuscular HGB Conc 30.2 g/dL (31.6-35.5); Mean Corpuscular Hemoglobin 26.8 pg (28.0-33.3); Mean Corpuscular Volume 88.9 fL (83.0-100.0); Mean Platelet Volume 11.5 fL (9.4-12.4); Monocytes # 1.3 K/mcL (0.0-1.3); Monocytes % 14.7 %; Neutrophils # 6.4 K/mcL (1.6-8.9); Platelet Count 275 K/mcL (140-400); Red Blood Count 3.32 M/mcL (3.82-4.97); Red Cell Distribution Width 19.8 % (11.5-14.5)
[2017-09-23 04:07] LABS: INR 1.6; Prothrombin Time 17.1 Seconds (9.4-12.1)
[2017-09-23 04:10] LABS: Activated Partial Thrombo Time 31.9 Seconds (26.0-36.0)
[2017-09-23 05:00] LABS: Calcium 7.7 mg/dL (8.6-10.3); Magnesium 1.5 mg/dL (1.6-2.6); Potassium 4.3 mEq/L (3.5-5.1)
[2017-09-23] MEDS: hydrALAZINE 25 MG TABLET PO SCH ×3 (08:53→21:23)
[2017-09-23] MEDS: cloNIDine HCl 0.1 MG TABLET PO SCH ×3 (08:54→21:23)
[2017-09-23] MEDS: Insulin LISPRO 300 UNITS/3 ML VIAL SQ SCH ×3 (08:54→17:50)
[2017-09-23] MEDS: Diltiazem CD (24hr) 120 MG CAPSULE PO SCH (08:54)
[2017-09-23] MEDS: Aspirin Enteric Coated 81 MG Tablet PO SCH (08:54)
[2017-09-23] MEDS ORDERED: Furosemide 40 MG TABLET PO SCH (09:00)
--- NOTE | 2017-09-23 09:20 | Internal Med Progress Note ---
Date of Encounter: 09/23/17 Time of Encounter: 09:00 - Assessment and plan (1) Cellulitis of left hand Current Visit: Yes Status: Acute Assessment and plan: Dog bite cellulitis. Due to IV Zosyn. Awaiting surgical evaluation and potential I&D. (2) Diabetes 1.5, managed as type 1 Current Visit: Yes Status: Acute Assessment and plan: Into new basal bolus insulin, monitor (3) Dog bite Current Visit: Yes Status: Acute Assessment and plan: See above Qualifiers: Encounter type: subsequent encounter Qualified Code(s): W54.0XXD - Bitten by dog, subsequent encounter (4) Atrial fibrillation and flutter Current Visit: No Status: Acute Assessment and plan: Rate controlled, Eliquis held pending possible surgical intervention (5) CHF (congestive heart failure) Current Visit: No Status: Chronic Assessment and plan: Most recent EF of 50-55%. I am sure the date of this echo. We will need to review. She has diastolic dysfunction, chronic. No evidence of acute exacerbation. Qualifiers: Congestive heart failure type: diastolic Congestive heart failure chronicity: acute on chronic Qualified Code(s): I50.33 - Acute on chronic diastolic (congestive) heart failure (6) CKD (chronic kidney disease) stage 2, GFR 60-89 ml/min Current Visit: No Status: Chronic Assessment and plan: Stable, monitor, avoid nephrotoxins as best able. (7) HTN (hypertension) Current Visit: No Status: Chronic Assessment and plan: Elevated today. She is on multiple medications. If remains elevated will need uptight her blood pressure medications. Suspect pain is contributing to her blood pressure elevation Qualifiers: Hypertension type: essential hypertension Qualified Code(s): I10 - Essential (primary) hypertension (8) Hyperlipidemia Current Visit: No Status: Chronic Qualifiers: Hyperlipidemia type: mixed hyperlipidemia Qualified Code(s): E78.2 - Mixed hyperlipidemia (9) KATINA (obstructive sleep apnea) Current Visit: No Status: Chronic - Time Spent With Patient 25 - 35 minutes - Subjective Interval history: Chief complaint: swelling of left hand from dog bite History of present illness: Ms. Hitchcock is a 71 year old female who presents with worsening swelling of left hand from dog bite. She was bitten by a [place] dog on monday and went to [facility] and was sent home on augmentin which she has been taking since 21-Michael with no improvement. Symptoms worsen with increasing pain and swelling. Failed home augmentin regimen. Associated with increasing swelling but sensation remains intact. She has co-morbid CAD s/p NC and CABG 2013, AFib on eliquis, cardizem, IDDM, HTN , HLD. She uses 2 L at baseline. 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 There is ill definition/periosteal reaction involving the medial cortex of the base of the 5th metacarpal. Correlation 09/23: She would no new complaints. She does have pain and swelling in her left hand but is not worse from admission. She denies any fevers or chills. No chest pain or shortness of breath. No nausea, vomiting, diarrhea. She is awaiting surgical evaluation. - Constitutional Vitals: Temp Pulse Resp BP Pulse Ox 97.7 F 58 16 205/75 97 09/23/17 08:12 09/23/17 08:12 09/23/17 08:12 09/23/17 08:12 09/23/17 08:12 General appearance: Present: A&O X 3, no acute distress - Head Head exam: Present: atraumatic, normocephalic - Neck Neck exam general surgery: Present: supple, trachea midline. Absent: lymphadenopathy - Respiratory Respiratory exam: Present: CTAB. Absent: accessory muscle use, rales, rhonchi, wheezes - Cardiovascular Cardiovascular exam: Present: RRR, +S1, +S2. Absent: diastolic murmur, gallop, rubs, systolic murmur - Extremities Exam Extremities exam: Present: warm, radial pulses palpable and symmetrical. Absent : calf tenderness (Left hand is diffusely edematous. She has a raised fluctuant area in the dorsum of her hand encompassing almost the entire dorsum of her hand with a dime-sized scab overlying without any obvious drainage. She also has swelling of her entire hand with reduced range of motion due to pain, also she has ecchymoses on the palmar aspect of her hand), cyanotic, pedal edema Additional comments: Patient has a swollen left hand with raised fluctuant area on the dorsum of her hand encompassing almost the entire dorsum of the hand with a dime-sized scab overlying without any obvious drainage. She also has ecchymoses on the palmar aspect of her hand. Range of motion of her hand is restricted due to pain and swelling. She also has a silver dollar size scab over her right patella with minimal surrounding erythema which she states is residual from her cancer of her knee which was excised one year ago. No evidence of acute infection - Neurological Exam Neurological exam: Present: CN II-XII intact, oriented X3, no focal deficits. Absent: pronater drift, facial droop, speech deficit - Skin Skin exam: Present: dry, intact Additional comments: See extremity exam Internal Medicine: Result - Labs CBC & Chem 7: 09/23/17 03:37 09/23/17 03:37 Labs: Short CBC 09/23/17 Range/Units 03:37 WBC 8.9 (4.3-11.1) K/mcL Hgb 8.9 L (11.5-15.4) g/dL Hct 29.5 L (35.3-44.9) % Plt Count 275 (140-400) K/mcL Neutrophils # 6.4 (1.6-8.9) K/mcL BMP 09/23/17 03:37 Sodium 135 L Potassium 4.3 Chloride 100 Carbon Dioxide 29 BUN 18 Creatinine 1.41 H Glucose 326 H Calcium 7.7 L - ABG Interpretation ABG results: PT/INR, D-dimer PT 17.1 Seconds (9.4-12.1) H 09/23/17 03:37 Consult Discharge Plan - Plan Referrals: Geremias Ryan DO [Primary Care Provider] -
--- NOTE | 2017-09-23 09:58 | Electrocardiograph Report ---
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
[2017-09-23] MEDS ORDERED: Lidocaine/EPI 1:100k 1% 50 ML VIAL INFILT ONE (11:49)
--- NOTE | 2017-09-23 14:46 | Orthopedic Consult Note ---
Date of Encounter: 09/23/17 Time of Encounter: 14:44 Assessment and Plan (1) Dog bite Current Visit: Yes Status: Acute The patient does have a dog bite to the left hand was concern for overlying cellulitis and dorsal hand abscess. My recommendation was for incision, drainage, irrigation, debridement which can be done at the bedside. The risks discussed included but were not limited to stiffness, bleeding, infection, blood clots, damage to neurovascular structures, tendons, ligaments, and bone. Also discussed was the risk of continued symptoms and possible need for further procedures. We will do this under a local anesthetic. After informed consent was obtained and a timeout to identify the correct patient, correct procedure, the correct side I did anesthetize the left dorsal hand with 10 mL of 1% lidocaine with epinephrine after setting up the sterile field. I made a 2 cm longitudinal incision over the hand dorsum and spread the dorsal tissue in the hand and did decompress moderate amount of hematoma. I did culture the area. There was no gross purulence. After copious irrigation I did pack the wound open with quarter-inch iodoform packing. I did place a dressing over the wound. Continue antibiotics per the hospitalist. I will be by in the morning to change the dressing and for further evaluation. Qualifiers: Qualified Code(s): W54.0XXA - Bitten by dog, initial encounter History of Present Illness HPI: Ms. Hitchcock is a 71 year old female who is admitted for a dog bite to the left hand. She was bitten by a chihuahua that has shots up-to-date. She was initially seen at an outside facility and placed on an oral antibiotic though was referred here by her primary care doc due to concern for cellulitis. She is currently admitted to the hospitalist and orthopedics was consulted due to concern for dorsal hand infection. On my evaluation the patient complains of isolated pain to the left hand dorsum. No new injuries otherwise. Pain is sharp and achy. No associated numbness, tingling, or other signs or symptoms. It is worse with use and movement and better with rest and elevation. She denies any feelings of illness. She denies other injuries. Past Med Surg Social Fam HX - Past Medical History Medical history: arthritis, asthma, atrial fibrillation, cancer, CHF, COPD, coronary artery disease, diabetes, hyperlipidemia, hypertension, myocardial infarction Psychiatric history: anxiety, depression - Past Surgical History Surgical History: angioplasty/stent, cholecystectomy, colectomy, coronary bypass (CABG), other - Social History Smoking Status: Never smoker Smokeless Tobacco Status: No Alcohol use: none Drug use: none - Family History Father Family Member Ethnicity: Non- Living Status: Hx Family Cardiac Disorders: Yes (CHF, CAD, [place]) Brother Family Member Ethnicity: Non- Living Status: Hx Family Cancer: Yes (Throat) Sister Family Member Ethnicity: Non- Living Status: Hx Family Respiratory Disorders: Yes (Emphysema) Hx Family Cancer: Yes (Breast) Mother Family Member Ethnicity: Non- Living Status: Hx Family Cardiac Disorders: No Hx Family Respiratory Disorders: No Hx Family Cancer: Yes (Colon) Hx Family GI Disorders: No Hx Family Endocrine Disorder: No Hx Family Neuromuscular Disorders: No Hx Family Neurologic Disorders: No Hx Family HEENT Disorders: No Hx Family Autoimmune Disorders: No Medications and Allergies Aspirin [Adult Low Dose Aspirin EC] 81 mg PO DAILY 11/15/15 [History] Insulin ASPART [Novolog Flexpen] 15 unit SQ TIDWM MDD + SS 11/15/15 [History] Insulin Glargine,Hum.rec.anlog [Lantus Solostar] 50 unit SQ HS 11/15/15 [History ] Ferrous Sulfate 325 mg PO DAILY 11/29/16 [History] Hydralazine HCl 100 mg PO TID 11/29/16 [History] [place]-3/Dha/Epa/Fish Oil [Fish Oil 1,000 mg Softgel] 1 cap PO DAILY 11/29/16 [ History] cloNIDine HCl [Clonidine HCl] 0.3 mg PO TID #90 tab 03/05/17 [Rx] Albuterol Sulfate [Proair Hfa] 1 puff IH Q4H PRN #1 inh 05/11/17 [Rx] Furosemide [Lasix] 40 mg PO DAILY #7 tablet 08/07/17 [Rx] Potassium Bicarbonate/Cit AC [Potassium 25 Meq Tablet Eff] 25 meq PO DAILY #7 tablet.eff 08/07/17 [Rx] ALPRAZolam [Xanax 0.5 MG Tablet] 0.5 mg PO BID PRN 08/08/17 [History] Apixaban [Eliquis] 2.5 mg PO BID 08/08/17 [History] Pravastatin Sodium [Pravachol] 80 mg PO QPM 08/08/17 [History] Carvedilol [Coreg] 25 mg PO BIDWM #60 tablet 08/18/17 [Rx] Diltiazem CD (24hr) [Cardizem CD] 120 mg PO DAILY #30 cap.er.24h 08/18/17 [Rx] Spironolactone [Aldactone] 50 mg PO DAILY #10 tablet 09/13/17 [Rx] Amoxicillin/Clavulanate [Augmentin] 875 mg PO BID 09/22/17 [History] HYDROcodone/Acet 5/325 mg [Kirkman 5-325 mg] 1 tab PO Q8H PRN 09/22/17 [History] Oxygen 2 l NS AD 09/22/17 [History] 3 Allergy/AdvReac Type Severity Reaction Status Date / Time Sulfa (Sulfonamide Allergy Swelling Verified 09/13/17 14:09 Antibiotics) of Lip/Tongue/Throat All Systems Reviewed: A 10-system review of systems was performed and is negative for pertinent findings except as documented above in the HPI. Physical Exam - Constitutional Vitals: Temp Pulse Resp BP Pulse Ox 98.1 F 86 16 150/76 97 09/23/17 10:20 09/23/17 14:23 09/23/17 10:20 09/23/17 14:23 09/23/17 10:20 CONSTITUTIONAL -Vitals reviewed -The patient is well developed, well nourished, well groomed PSYCHIATRIC -Fully alert and oriented -Pleasant mood LEFT UPPER EXTREMITY The skin and soft tissue envelope are intact with the exception of 2 puncture bites on the hand dorsum, one along the proximal ulnar aspect and one about the distal radial aspect. There are scabbed over without any drainage. Her is moderate swelling with significant dorsal ecchymosis about the hand with mild overlying cellulitis and some slight fluctuance. She can grossly flex and extend the digits with limitation due to pain and swelling. Ecchymosis volarly without significant tenderness. Full motion of the wrist.The fingertips are all grossly sensate and well-perfused, and the radial artery pulse is 2+. Diagnostic Imaging: I did personally review and interpret x-rays of the left hand which show no fractures or dislocations or retained foreign bodies or bony resorption. Results - Labs Result Diagrams: 09/23/17 03:37 09/23/17 03:37 Labs: Abnormal lab results RBC 3.32 M/mcL (3.82-4.97) L 09/23/17 03:37 Hgb 8.9 g/dL (11.5-15.4) L 09/23/17 03:37 Hct 29.5 % (35.3-44.9) L 09/23/17 03:37 MCH 26.8 pg (28.0-33.3) L 09/23/17 03:37 MCHC 30.2 g/dL (31.6-35.5) L 09/23/17 03:37 RDW 19.8 % (11.5-14.5) H 09/23/17 03:37 PT 17.1 Seconds (9.4-12.1) H 09/23/17 03:37 Sodium 135 mEq/L (136-145) L 09/23/17 03:37 Creatinine 1.41 mg/dL (0.60-1.20) H 09/23/17 03:37 Est GFR ( Amer) 44 (> 60) L 09/23/17 03:37 Est GFR (Non-Af Amer) 37 (> 60) L 09/23/17 03:37 Glucose 326 mg/dL (70-105) H 09/23/17 03:37 POC Glucose 313 (58-89) H 09/23/17 08:06 Calcium 7.7 mg/dL (8.6-10.3) L 09/23/17 03:37 Magnesium 1.5 mg/dL (1.6-2.6) L 09/23/17 03:37 H & H 09/23/17 Range/Units 03:37 Hgb 8.9 L (11.5-15.4) g/dL Hct 29.5 L (35.3-44.9) % All other labs normal. Consult Discharge Plan - Plan Referrals: Geremias Ryan DO [Primary Care Provider] -
[2017-09-23] MEDS ORDERED: Insulin DETEMIR 100 UNIT/ML X5UNITS SQ SCH (21:00)
[2017-09-23] MEDS: *HR* HYDROcodone/Acet 5/325 mg TABLET PO PRN (21:24)
[2017-09-24] MEDS: Piperacillin/Tazobactam 3.375 GM/200 ML BAG IVPB SCH ×2 (00:36→09:16)
[2017-09-24 07:45] LABS: Magnesium 1.8 mg/dL (1.6-2.6); Potassium 4.3 mEq/L (3.5-5.1)
[2017-09-24 07:52] LABS: Basophils # 0.1 K/mcL (0.0-0.2); Basophils % 0.8 %; Eosinophils # 0.1 K/mcL (0.0-0.6); Eosinophils % 1.4 %; Hemoglobin 10.1 g/dL (11.5-15.4); Lymphocytes # 0.9 K/mcL (0.6-4.6); Lymphocytes % 8.3 %; Mean Corpuscular HGB Conc 30.6 g/dL (31.6-35.5); Mean Corpuscular Hemoglobin 27.4 pg (28.0-33.3); Mean Corpuscular Volume 89.4 fL (83.0-100.0); Mean Platelet Volume 11.7 fL (9.4-12.4); Monocytes # 1.5 K/mcL (0.0-1.3); Monocytes % 14.1 %; Neutrophils # 7.7 K/mcL (1.6-8.9); Platelet Count 289 K/mcL (140-400); Red Blood Count 3.69 M/mcL (3.82-4.97); Red Cell Distribution Width 19.5 % (11.5-14.5); Segmented Neutrophils % 74.4 %
[2017-09-24] MEDS: Aspirin Enteric Coated 81 MG Tablet PO SCH (09:17)
[2017-09-24] MEDS: hydrALAZINE 25 MG TABLET PO SCH ×2 (09:17→15:29)
[2017-09-24] MEDS: cloNIDine HCl 0.1 MG TABLET PO SCH ×2 (09:17→15:29)
[2017-09-24] MEDS: Diltiazem CD (24hr) 120 MG CAPSULE PO SCH (09:17)
[2017-09-24] MEDS: Insulin LISPRO 300 UNITS/3 ML VIAL SQ SCH ×2 (09:17→12:05)
--- NOTE | 2017-09-24 12:21 | Internal Med Progress Note ---
Date of Encounter: 09/24/17 Time of Encounter: 09:00 - Assessment and plan (1) Cellulitis of left hand Current Visit: Yes Status: Acute (2) Diabetes 1.5, managed as type 1 Current Visit: Yes Status: Acute (3) Dog bite Current Visit: Yes Status: Acute Qualifiers: Encounter type: subsequent encounter Qualified Code(s): W54.0XXD - Bitten by dog, subsequent encounter (4) Atrial fibrillation and flutter Current Visit: No Status: Acute (5) CHF (congestive heart failure) Current Visit: No Status: Chronic Qualifiers: Congestive heart failure type: diastolic Congestive heart failure chronicity: acute on chronic Qualified Code(s): I50.33 - Acute on chronic diastolic (congestive) heart failure (6) CKD (chronic kidney disease) stage 2, GFR 60-89 ml/min Current Visit: No Status: Chronic (7) HTN (hypertension) Current Visit: No Status: Chronic Qualifiers: Hypertension type: essential hypertension Qualified Code(s): I10 - Essential (primary) hypertension (8) Hyperlipidemia Current Visit: No Status: Chronic Qualifiers: Hyperlipidemia type: mixed hyperlipidemia Qualified Code(s): E78.2 - Mixed hyperlipidemia (9) KATINA (obstructive sleep apnea) Current Visit: No Status: Chronic - Subjective Interval history: Chief complaint: swelling of left hand from dog bite History of present illness: Ms. Hitchcock is a 71 year old female who presents with worsening swelling of left hand from dog bite. She was bitten by a Surendra dog on monday and went to [facility] and was sent home on augmentin which she has been taking since with no improvement. Symptoms worsen with increasing pain and swelling. Failed home augmentin regimen. Associated with increasing swelling but sensation remains intact. She has co-morbid CAD s/p [place] and CABG 2013, AFib on eliquis, cardizem, IDDM, HTN , HLD. She uses 2 L at baseline. 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 There is ill definition/periosteal reaction involving the medial cortex of the base of the 5th metacarpal. Correlation 09/23: She would no new complaints. She does have pain and swelling in her left hand but is not worse from admission. She denies any fevers or chills. No chest pain or shortness of breath. No nausea, vomiting, diarrhea. She is awaiting surgical evaluation. 09/24: CC: Left hand pain. HPI: Patient underwent bedside I&D by orthopedic surgery yesterday. Results still pending. - Constitutional Vitals: Temp Pulse Resp BP Pulse Ox 98.2 F 60 18 131/69 95 09/24/17 10:50 09/24/17 10:50 09/24/17 10:50 09/24/17 10:50 09/24/17 10:50 General appearance: Present: A&O X 3, no acute distress Internal Medicine: Result - Labs CBC & Chem 7: 09/24/17 06:55 09/24/17 06:55 Labs: Short CBC 09/24/17 Range/Units 06:55 WBC 10.3 (4.3-11.1) K/mcL Hgb 10.1 L (11.5-15.4) g/dL Hct 33.0 L (35.3-44.9) % Plt Count 289 (140-400) K/mcL Neutrophils # 7.7 (1.6-8.9) K/mcL BMP 09/24/17 06:55 Sodium 137 Potassium 4.3 Chloride 99 Carbon Dioxide 32 H BUN 20 Creatinine 1.92 H Glucose 106 H Calcium 9.0 - ABG Interpretation ABG results: PT/INR, D-dimer PT 17.1 Seconds (9.4-12.1) H 09/23/17 03:37 Consult Discharge Plan - Plan Referrals: Geremias Ryan DO [Primary Care Provider] -
[2017-09-24] MEDS: *HR* HYDROcodone/Acet 5/325 mg TABLET PO PRN (12:34)
--- NOTE | 2017-09-24 14:25 | Orthopedics Progress Note ---
Date of Encounter: 09/24/17 Time of Encounter: 14:23 - Assessment and Plan (1) Dog bite Current Visit: Yes Status: Acute Qualifiers: Qualified Code(s): W54.0XXA - Bitten by dog, initial encounter Subjective Interval history: S: Improved pain to the left hand dorsum O: Afebrile and vital signs are stable Improvement in the left hand redness. Packing pulled. Mild bloody drainage. She can dorsiflex and extend the digits with less limitation in yesterday. The fingertips are all grossly sensate and well-perfused, and the radial artery pulse is 2+. A: Dog bite to left hand with cellulitis and hematoma to the left hand dorsum P: Doing well clinically. Anticipate switched to oral antibiotics. Motion exercises to reduce the risk of stiffness. Orthopedically stable for discharge. Daily dressing changes with warm soapy soaks. Follow up in the office in 1 week for clinical reevaluation or sooner if needed. She will call the office sooner for any new or worsening concerns before then. Objective Vital signs: Vital Signs Temp Pulse Resp BP Pulse Ox 09/24/17 10:50 98.2 F 60 18 131/69 95 09/24/17 07:50 98.0 F 63 14 165/80 97 09/24/17 03:25 97.9 F 56 17 148/63 99 09/23/17 21:20 94 09/23/17 19:30 98.1 F 62 18 186/71 94 09/23/17 15:16 97.9 F 67 14 168/73 98 Intake and Output 09/23/17 09/24/17 09/24/17 23:59 07:59 15:59 Intake Total 320 / 320 200 / 200 510 / 510 Output Total 0 / 0 Balance 320 / 320 200 / 200 509 / 509 Intake: IV Fluids 200 / 200 200 / 200 Zosyn Premix 3.375 GM/200 ML 3. 200 / 200 200 / 200 375 gm In 200 ml @ 50 mls/hr IVPB Q8H [facility] Rx#:[id number] Oral 120 / 120 0 / 0 510 / 510 Output: Urine 0 / 0 0 / 0 Urine/Stool Mix Other: Meal Dinner Lunch Percent of Meal Consumed 100% 100% Stool Size Copious Stool Consistency loose soft Stool Color Brown # Urine Diapers 1 1 1 Blood Glucose* 243 111 339 - Labs CBC & BMP: 09/24/17 06:55 09/24/17 06:55 Labs: Abnormal lab results RBC 3.69 M/mcL (3.82-4.97) L 09/24/17 06:55 Hgb 10.1 g/dL (11.5-15.4) L 09/24/17 06:55 Hct 33.0 % (35.3-44.9) L 09/24/17 06:55 MCH 27.4 pg (28.0-33.3) L 09/24/17 06:55 MCHC 30.6 g/dL (31.6-35.5) L 09/24/17 06:55 RDW 19.5 % (11.5-14.5) H 09/24/17 06:55 Monocytes # 1.5 K/mcL (0.0-1.3) H 09/24/17 06:55 PT 17.1 Seconds (9.4-12.1) H 09/23/17 03:37 Carbon Dioxide 32 mEq/L (23-29) H 09/24/17 06:55 Creatinine 1.92 mg/dL (0.60-1.20) H 09/24/17 06:55 Est GFR ( Amer) 31 (> 60) L 09/24/17 06:55 Est GFR (Non-Af Amer) 26 (> 60) L 09/24/17 06:55 Glucose 106 mg/dL (70-105) H 09/24/17 06:55 POC Glucose 310 (58-89) H 09/23/17 17:32 Consult Discharge Plan - Plan Referrals: Geremias Ryan DO [Primary Care Provider] -
[2017-09-24 15:05] VITALS: BP 146/61
--- NOTE | 2017-09-24 15:18 | Discharge Summary ---
Date of Encounter: 09/24/17 Time of Encounter: 15:00 - Discharge Diagnosis (1) Cellulitis of left hand Priority: Primary Status: Acute (2) Diabetes 1.5, managed as type 1 Priority: Secondary Status: Acute (3) Dog bite Priority: Primary Status: Acute Qualifiers: Encounter type: subsequent encounter Qualified Code(s): W54.0XXD - Bitten by dog, subsequent encounter (4) Atrial fibrillation and flutter Priority: Secondary Status: Acute (5) CHF (congestive heart failure) Priority: Secondary Status: Chronic Qualifiers: Congestive heart failure type: diastolic Congestive heart failure chronicity: acute on chronic Qualified Code(s): I50.33 - Acute on chronic diastolic (congestive) heart failure (6) CKD (chronic kidney disease) stage 2, GFR 60-89 ml/min Priority: Secondary Status: Chronic (7) HTN (hypertension) Priority: Secondary Status: Chronic Qualifiers: Hypertension type: essential hypertension Qualified Code(s): I10 - Essential (primary) hypertension (8) Hyperlipidemia Priority: Secondary Status: Chronic Qualifiers: Hyperlipidemia type: mixed hyperlipidemia Qualified Code(s): E78.2 - Mixed hyperlipidemia (9) KATINA (obstructive sleep apnea) Priority: Secondary Status: Chronic - Discharge Medications Prescriptions: Amoxicillin/Clavulanate [Augmentin] 875 mg PO BID #14 tablet HYDROcodone/Acet 5/325 mg [[place] 5-325 mg] 1 tab PO Q6H PRN 4 Days #16 tab PRN Reason: Pain Home Medications: Aspirin [Adult Low Dose Aspirin EC] 81 mg PO DAILY 11/15/15 [History] Insulin ASPART [Novolog Flexpen] 15 unit SQ TIDWM MDD + SS 11/15/15 [History] Insulin Glargine,Hum.rec.anlog [Lantus Solostar] 50 unit SQ HS 11/15/15 [History ] Ferrous Sulfate 325 mg PO DAILY 11/29/16 [History] Hydralazine HCl 100 mg PO TID 11/29/16 [History] [place]-3/Dha/Epa/Fish Oil [Fish Oil 1,000 mg Softgel] 1 cap PO DAILY 11/29/16 [ History] cloNIDine HCl [Clonidine HCl] 0.3 mg PO TID #90 tab 03/05/17 [Rx] Albuterol Sulfate [Proair Hfa] 1 puff IH Q4H PRN #1 inh 05/11/17 [Rx] Furosemide [Lasix] 40 mg PO DAILY #7 tablet 08/07/17 [Rx] Potassium Bicarbonate/Cit AC [Potassium 25 Meq Tablet Eff] 25 meq PO DAILY #7 tablet.eff 08/07/17 [Rx] ALPRAZolam [Xanax 0.5 MG Tablet] 0.5 mg PO BID PRN 08/08/17 [History] Apixaban [Eliquis] 2.5 mg PO BID 08/08/17 [History] Pravastatin Sodium [Pravachol] 80 mg PO QPM 08/08/17 [History] Carvedilol [Coreg] 25 mg PO BIDWM #60 tablet 08/18/17 [Rx] Diltiazem CD (24hr) [Cardizem CD] 120 mg PO DAILY #30 cap.er.24h 08/18/17 [Rx] Spironolactone [Aldactone] 50 mg PO DAILY #10 tablet 09/13/17 [Rx] HYDROcodone/Acet 5/325 mg [[place] 5-325 mg] 1 tab PO Q8H PRN 09/22/17 [History] Oxygen 2 l NS AD 09/22/17 [History] Amoxicillin/Clavulanate [Augmentin] 875 mg PO BID #14 tablet 09/24/17 [Rx] HYDROcodone/Acet 5/325 mg [[place] 5-325 mg] 1 tab PO Q6H PRN 4 Days #16 tab 09/24 [Rx] Allergies/Adverse Reactions: 3 Allergy/AdvReac Type Severity Reaction Status Date / Time Sulfa (Sulfonamide Allergy Swelling Verified 09/13/17 14:09 Antibiotics) of Lip/Tongue/Throat Date of admission: 09/22/17 23:58 Primary care physician: Geremias Ryan DO Consults: 09/23/17 06:25 Consult to Pastoral Services [CONS] Routine Comment: 09/23/17 07:26 Consult to Orthopedic Surgery [CONS] Routine Consulting Provider: [facility] Reason for Consult: eval for abscess Call Completed: No Discharging clinician: Deniz Ashby Anticipated date of discharge: 09/24/17 - Patient Status Disposition: Home, Self-Care Condition: Good Functional capacity at discharge: independent ambulation Overall status at discharge: patient is back to baseline - Discharge Instructions Follow Up With: Geremias Ryan DO [Primary Care Provider] - Additional Instructions: Follow-up with orthopedic surgery in one week as planned Resume in Apixaban in 3 days. Hold if bleeding on hand. - Diet and Activity Activity: increase activity as tolerated Interval History: Ms. Hitchcock is a 71 year old female who presents with worsening swelling of left hand from dog bite. She was bitten by a Chihuahua dog on monday and went to [facility] and was sent home on augmentin which she has been taking since with no improvement. Symptoms worsen with increasing pain and swelling. Failed home augmentin regimen. Associated with increasing swelling but sensation remains intact. She has co-morbid CAD s/p MT and CABG 2013, AFib on eliquis, cardizem, IDDM, HTN , HLD. She uses 2 L at baseline. 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 There is ill definition/periosteal reaction involving the medial cortex of the base of the 5th metacarpal. Correlation 09/23: She would no new complaints. She does have pain and swelling in her left hand but is not worse from admission. She denies any fevers or chills. No chest pain or shortness of breath. No nausea, vomiting, diarrhea. She is awaiting surgical evaluation. 09/24: Patient doing bedside I&D by arthritic surgery on September 23. Gross purulence noted. Culture data available. She otherwise did well and was seen by arthritic surgery today and was recommended to go home on oral antibiotics with follow-up in their office in one week. Patient otherwise did well with no other significant issues. Her pain had improved. Patient was otherwise deemed stable for discharge. Her creatinine did increase slightly on day of discharge to 1.91 and it was recommended that she continue to have good oral intake. We did hold her Lasix and Aldactone today. She does have a history of chronic kidney disease. With regards to her atrial fibrillation and anticoagulation, she will resume her blood thinner in 3 days. Patient otherwise was doing well and deemed stable for discharge. His requested that she have a repeat BMP in the next 2-3 days and follow-up with her primary care provider. She will return immediately should she have fevers or chills or any other problem. Hospital course: Ms. Hitchcock is a 71 year old female - Time Spent with Patient Total time spent providing and/or coordinating discharge services: Less than 30 minutes - Constitutional Vitals: Temp Pulse Resp BP Pulse Ox 97.9 F 65 14 146/61 95 09/24/17 15:00 09/24/17 15:00 09/24/17 15:00 09/24/17 15:00 09/24/17 15:00 General appearance: Present: A&O X 3, no acute distress - Head Head exam: Present: atraumatic, normocephalic - Eye Eye exam: Present: conjuntiva pink, sclera anicteric - Respiratory Respiratory exam: Present: decreased breath sounds. Absent: accessory muscle use, rales, rhonchi, wheezes - Cardiovascular Cardiovascular exam: Present: irregular rhythm, +S1, +S2. Absent: diastolic murmur, gallop, rubs, systolic murmur - Extremities Exam Extremities exam: Present: pedal edema (2+ edema bilat (chronic per pt)), warm, radial pulses palpable and symmetrical. Absent: calf tenderness, cyanotic Additional comments: Left hand is wrapped, dressing is dry
== END 2017-09-24 15:49 | disposition home or self-care (01) | DRG 602 ==
LOC: 3ANU 19:52 → EMEROO 19:52 → 3ANU 09-23 00:19
PROVIDERS: ADMIT Internal Medicine; ATTEND Internal Medicine

== ENCOUNTER 2018-04-13 07:39 | Observation (INO) ==
[2018-04-13] MEDS ORDERED: Isovue-370 500 ML INFUS..BTL IV ONE (08:05)
--- NOTE | 2018-04-13 08:13 | Emergency Department Note ---
Disposition Clinical Impression: Left arm numbness, Hyperkalemia CHF (congestive heart failure) Qualifiers: Heart failure type: unspecified Heart failure chronicity: unspecified Qualified Code(s): I50.9 - Heart failure, unspecified Chronic kidney disease Qualifiers: Chronic kidney disease stage: unspecified stage Qualified Code(s): N18.9 - Chronic kidney disease, unspecified Anemia Qualifiers: Anemia type: unspecified type Qualified Code(s): D64.9 - Anemia, unspecified UTI (urinary tract infection) Qualifiers: Urinary tract infection type: site unspecified Hematuria presence: without hematuria Qualified Code(s): N39.0 - Urinary tract infection, site not specified Disposition: Admitted As Inpatient Condition: Fair Time of Disposition: 10:14 Neuro HPI - General Chief Complaint: ED Neuro Symptoms/Deficit Stated Complaint: L arm numbness Time Seen by Provider: 04/13/18 07:44 Source: patient Mode of arrival: ambulatory Limitations: no limitations Nursing Notes Reviewed: Yes Vital Signs Reviewed: Yes - History of Present Illness HPI Narrative: 72-year-old female with history of A. fib, CAD, hypertension diabetes presents for evaluation of left arm numbness. Patient states she woke up with this numbness this morning. Patient denies any focal neurologic weakness but does note she has been increasingly weak over the past few days. Also noted some dyspnea that started this morning. Denies chest pain or fevers. No cough. Patient denies any slurred speech or facial droop. No focal weaknesses noted. Denies any abdominal pain. No nausea or vomiting. Patient does state she has had a history of 3 cancers. States that she has had a skin cancer as well as a colon cancer and a kidney cancer. Patient was not able to provide any additional information to her cancer history. Patient is anticoagulated on Eliquis for her A. fib. - Related Data Home Medications: Home Medications Medication Instructions Recorded Confirmed Aspirin [Adult Low Dose Aspirin EC] 81 mg PO DAILY 11/15/15 04/13/18 Insulin ASPART [Novolog Flexpen] 15 unit SQ TIDWM MDD + SLIDING 11/15/15 SCALE Ferrous Sulfate 325 mg PO DAILY 11/29/16 04/13/18 Hydralazine HCl 100 mg PO TID 11/29/16 04/13/18 [place]-3/Dha/Epa/Fish Oil [Fish Oil 1 cap PO DAILY 11/29/16 04/13/18 1,000 mg Softgel] ALPRAZolam [Xanax 0.5 MG Tablet] 0.5 mg PO BID PRN 08/08/17 04/13/18 Apixaban [Eliquis] 2.5 mg PO BID 08/08/17 04/13/18 Pravastatin Sodium [Pravachol] 80 mg PO QPM 08/08/17 04/13/18 Oxygen 2 l NS AD 09/22/17 04/13/18 Furosemide [Lasix] 40 mg PO DAILY PRN 10/19/17 04/13/18 Dulaglutide [Trulicity] 0.75 mg SQ TH 04/13/18 04/13/18 Gabapentin [Neurontin] 100 mg PO BID 04/13/18 04/13/18 Insulin Degludec [Tresiba 62 unit SQ HS 04/13/18 04/13/18 Flextouch U-200] dilTIAZem HCl [Diltiazem 24Hr ER] 120 mg PO DAILY 04/13/18 04/13/18 Previous Rx's Medication Instructions Recorded cloNIDine HCl [Clonidine HCl] 0.3 mg PO TID #90 tab 03/05/17 Albuterol Sulfate [Proair Hfa] 1 puff IH Q4H PRN #1 inh 05/11/17 Carvedilol [Coreg] 25 mg PO BIDWM #60 tablet 08/18/17 Spironolactone [Aldactone] 50 mg PO DAILY #10 tablet 09/13/17 Allergies/Adverse Reactions: Allergies Allergy/AdvReac Type Severity Reaction Status Date / Time Sulfa (Sulfonamide Allergy Severe Swelling Verified 04/10/18 15:11 Antibiotics) of Lip/Tongue/Throat All systems ED: reviewed and negative except as stated. Constitutional: Denies: fever Cardiovascular: Denies: chest pain Respiratory: Reports: dyspnea. Denies: cough, sputum production Gastrointestinal: Denies: abdominal pain, nausea, vomiting Past Medical History - Past Medical History Source: patient Medical history: Reports: arthritis, asthma, atrial fibrillation, cancer, CHF, COPD, coronary artery disease, diabetes, hyperlipidemia, hypertension, myocardial infarction Surgical history: Reports: angioplasty/stent, cholecystectomy, colectomy, coronary bypass (CABG), other Psychiatric history: Reports: anxiety, depression COMPLIANCE ENGINEER history: Reports: no COMPLIANCE ENGINEER history - Social History Smoking Status: Never smoker Smokeless Tobacco Status: No Alcohol use: Reports: none Drug use: Reports: none Physical Exam - General Limitations: no limitations General appearance: alert, in no apparent distress - Head Head exam: atraumatic, normocephalic, normal inspection - Eye Eye exam: Present: normal appearance, PERRL, EOMI, nystagmus (R sided horizontal nystagmus.) - ENT ENT exam: normal exam, mucous membranes moist - Neck Neck exam: Present: normal inspection, trachea midline - Chest Chest inspection: Present: normal inspection, symmetric chest wall rise - Respiratory Respiratory exam: Present: normal lung sounds bilaterally. Absent: respiratory distress - Cardiovascular Cardiovascular exam: Present: regular rate, irregular rhythm - Abdominal Exam Abdominal exam: Present: soft, Non-Tender - Extremities Exam Extremities exam: Present: normal inspection. Absent: pedal edema - Expanded Lower Extremity Exam Neurovascular/Tendon exam: Present: normal capillary refill - Back Exam Back exam: Present: normal inspection - Neurological Exam Neurological exam: Present: alert, oriented X3, CN II-XII intact - Expanded Neurological Exam Patient oriented to: Present: person Speech: Present: fluid speech Cranial nerves: EOM function (II, III, IV, ): Normal, facial sensation (V): Normal, facial palsy (VII): Normal, spinal accessory function (XI): Normal, tongue deviation (XII): Normal Cerebellar function: finger to nose: Normal Motor strength - LUE: 5/5 Motor strength - RUE: 5/5 Motor strength - LLE: 5/5 Motor strength - RLE: 5/5 Sensory exam upper extremity: light touch: Abnormal Left Sensory exam lower extremity: light touch: Normal Coma Scale Eye Opening: Spontaneous Coma Scale Motor Response: Obeys Commands Coma Scale Verbal Response: Oriented Coma Scale Total: 15 - Skin Skin exam: Present: warm, dry, intact, normal color Course Course Narrative: Patient seen and examined. Patient woke up with the symptoms. Patient is not a stroke alert. Patient will get worked up for CVA. Patient also get screening cardiopulmonary evaluation with EKG, chest x-ray troponin. Disposition pending. - Reevaluation(s) Reevaluation #1: Patient seen and examined. Patient neuro exam is unchanged. Daughter is at bedside. It provides additional history stating that the patient does only have one solitary kidney. Patient did receive one unit of blood a couple days ago at the cancer center. Patient is hemodynamically stable and hemoglobin did improve from prior evaluation. Patient will be admitted for CVA workup. Time: 10:13 Vital Signs Temperature 99.0 F 04/13/18 07:44 Pulse Rate 86 04/13/18 07:44 Respiratory Rate 12 04/13/18 07:44 Blood Pressure 167/82 04/13/18 07:44 O2 Sat by Pulse Oximetry 95 04/13/18 07:44 Temperature 99.0 F 04/13/18 07:49 Pulse Rate 95 04/13/18 10:02 Respiratory Rate 18 04/13/18 10:02 Blood Pressure 158/69 04/13/18 10:02 O2 Sat by Pulse Oximetry 99 04/13/18 10:02 Oxygen Delivery Oxygen Delivery Room Air Neuro Symptoms/Deficit - MDM Narrative Medical decision making narrative: Patient presents for neurologic symptoms with left arm numbness. Patient also states she is feeling short of breath over the past couple days. On exam the patient is in nature want strictly related the patient's subjective numbness of the left arm. Patient was not a stroke alert. Patient CT scan shows no acute disease but chronic microvascular ischemic disease. Patient's chest x-ray does show signs of heart failure. Patient is not requiring any oxygen supplementation increased work of breathing. Patient's kidneys appear to be chronic in nature. Patient does have an elevated potassium but does not have any changes on EKG. At this point the patient's appropriate for further evaluation with admission correction of electrolytes and insurance it kidney function does not worsen. Patient also benefit from advanced imaging of the brain. Patient did receive an aspirin for concerns for CVA. Patient's family provided additional history stating that she did get a transfusion yesterday. Hemodynamically stable. At this point the patient does have a leukocytosis of the patient's had leukocytosis in the past. Possibly reactive. Patient does not have any cough or respiratory symptoms that would suggest any pneumonia. Chest x-ray showed findings consistent with congestive heart failure. Patient was not diuresed in the ED due to your kidney function. Patient was fluid restricted. Patient would benefit from admission to ensure a normalization of electrolytes such as the hyperkalemia, and insure stable hemoglobin. Patient urine was also shown to have signs of infection was started on antibiotics. - Lab Data Lab results reviewed: Yes I reviewed the patient's lab results. Result diagrams: 04/13/18 08:10 04/13/18 08:10 Lab Results 04/13/18 04/13/18 04/13/18 Range/Units 08:10 08:10 08:10 WBC 15.1 H (4.3-11.1) K/mcL RBC 2.85 L (3.82-4.97) M/mcL Hgb 8.1 L D (11.5-15.4) g/dL Hct 26.4 L (35.3-44.9) % MCV 92.6 (83.0-100.0) fL MCH 28.4 (28.0-33.3) pg MCHC 30.7 L (31.6-35.5) g/dL RDW 15.3 H (11.5-14.5) % Plt Count 293 (140-400) K/mcL MPV 10.2 (9.4-12.4) fL Immature Gran % 0.6 (0-4) % Seg Neutrophils % 80.8 % Lymphocytes % 4.8 % Monocytes % 11.3 % Eosinophils % 2.3 % Basophils % 0.2 % Neutrophils # 12.2 H (1.6-8.9) K/mcL Lymphocytes # 0.7 (0.6-4.6) K/mcL Monocytes # 1.7 H (0.0-1.3) K/mcL Eosinophils # 0.3 (0.0-0.6) K/mcL Basophils # 0.0 (0.0-0.2) K/mcL PT 14.2 H (9.4-12.1) Seconds INR 1.3 APTT 30.0 (26.0-36.0) Seconds Sodium 131 L (136-145) mEq/L Potassium 5.9 H (3.5-5.1) mEq/L Chloride 104 (98-107) mEq/L Carbon Dioxide 23 (23-29) mEq/L BUN 57 H (8-23) mg/dL Creatinine 2.17 H (0.60-1.20) mg/dL Est GFR ( Amer) 27 L (> 60) Est GFR (Non-Af Amer) 22 L (> 60) BUN/Creatinine Ratio 26 (6-26) Glucose 147 H (70-105) mg/dL Calculated Osmolality 291 (280-300) Calcium 8.8 (8.6-10.3) mg/dL Total Bilirubin 0.4 (0.3-1.0) mg/dL Direct Bilirubin 0.1 (0.0-0.2) mg/dL Indirect Bilirubin 0.3 (0.0-1.2) mg/dL AST 12 L (13-39) Units/L ALT 10 (7-52) Units/L Alkaline Phosphatase 125 H (34-104) Units/L Troponin I 0.03 (< 0.04) ng/mL Serum Total Protein 7.0 (6.4-8.9) g/dL Albumin 3.6 (3.5-5.7) g/dL Globulin 3.4 (2.4-3.5) g/dL Albumin/Globulin Ratio 1.1 (1.1-2.2) TSH 1.859 (0.340-5.600) mcIU/mL Urine Color (Yellow) Urine Clarity (Clear) Urine pH (5.0-8.0) pH Units Ur Specific [place] (1.010-1.025) Urine Protein (Neg-Trace) mg/dL Urine Glucose (UA) (Normal) mg/dL Urine Ketones (Negative) mg/dL Urine Blood (Negative) Urine Nitrite (Negative) Urine Bilirubin (Negative) Urine Urobilinogen (Normal) mg/dL Ur Leukocyte Esterase (Negative) Urine Microscopic RBC (0-3) per hpf Urine Microscopic WBC (0-3) per hpf Ur Squamous Epith Cells (None-Few) per lpf Urine Bacteria (None-Few) per hpf Ur Culture Indicated? (NO) 04/13/18 Range/Units 10:47 WBC (4.3-11.1) K/mcL RBC (3.82-4.97) M/mcL Hgb (11.5-15.4) g/dL Hct (35.3-44.9) % MCV (83.0-100.0) fL MCH (28.0-33.3) pg MCHC (31.6-35.5) g/dL RDW (11.5-14.5) % Plt Count (140-400) K/mcL MPV (9.4-12.4) fL Immature Gran % (0-4) % Seg Neutrophils % % Lymphocytes % % Monocytes % % Eosinophils % % Basophils % % Neutrophils # (1.6-8.9) K/mcL Lymphocytes # (0.6-4.6) K/mcL Monocytes # (0.0-1.3) K/mcL Eosinophils # (0.0-0.6) K/mcL Basophils # (0.0-0.2) K/mcL PT (9.4-12.1) Seconds INR APTT (26.0-36.0) Seconds Sodium (136-145) mEq/L Potassium (3.5-5.1) mEq/L Chloride (98-107) mEq/L Carbon Dioxide (23-29) mEq/L BUN (8-23) mg/dL Creatinine (0.60-1.20) mg/dL Est GFR ( Amer) (> 60) Est GFR (Non-Af Amer) (> 60) BUN/Creatinine Ratio (6-26) Glucose (70-105) mg/dL Calculated Osmolality (280-300) Calcium (8.6-10.3) mg/dL Total Bilirubin (0.3-1.0) mg/dL Direct Bilirubin (0.0-0.2) mg/dL Indirect Bilirubin (0.0-1.2) mg/dL AST (13-39) Units/L ALT (7-52) Units/L Alkaline Phosphatase (34-104) Units/L Troponin I (< 0.04) ng/mL Serum Total Protein (6.4-8.9) g/dL Albumin (3.5-5.7) g/dL Globulin (2.4-3.5) g/dL Albumin/Globulin Ratio (1.1-2.2) TSH (0.340-5.600) mcIU/mL Urine Color Yellow (Yellow) Urine Clarity Clear (Clear) Urine pH 6.5 (5.0-8.0) pH Units Ur Specific [place] 1.015 (1.010-1.025) Urine Protein 100 H (Neg-Trace) mg/dL Urine Glucose (UA) Normal (Normal) mg/dL Urine Ketones Negative (Negative) mg/dL Urine Blood Negative (Negative) Urine Nitrite Negative (Negative) Urine Bilirubin Negative (Negative) Urine Urobilinogen Normal (Normal) mg/dL Ur Leukocyte Esterase Large H (Negative) Urine Microscopic RBC 0-3 (0-3) per hpf Urine Microscopic WBC TNTC H (0-3) per hpf Ur Squamous Epith Cells Few (None-Few) per lpf Urine Bacteria Many H (None-Few) per hpf Ur Culture Indicated? YES A (NO) - Radiology Data Radiology results reviewed: Yes I reviewed the patient's radiology results. Chest X-Ray 04/13/18 08:03 IMPRESSION: Cardiomegaly with pulmonary vascular prominence, but no interstitial or alveolar edema. D/ / 04/13/2018 09:05:48 Kirk Tyler MD / [facility] Interpreting Provider: Kirk Tyler MD Head CT 04/13/18 08:05 IMPRESSION: Sequela of chronic small vessel ischemic change. No acute intracranial abnormality is seen. D/ / 04/13/2018 09:34:33 Kirk Tyler MD / [facility] Interpreting Provider: Kirk Tyler MD - EKG Data EKG attestation: Yes I reviewed and interpreted this EKG. Rate: normal Rhythm: A.Fib [place]/QRS: normal Q waves: v1, v2, v3 Interpretation: no acute changes, unchanged when compared to prior tracing (date ), nonspecific ST-T wave changes NIH Stroke Scale - Level of Consciousness LOC: Alert - LOC Questions LOC Questions: Answers both correctly - LOC Commands LOC Commands: Performs both correctly - Best Gaze Best Gaze: Normal - Visual Visual: No visual loss - Facial Palsy Facial Palsy: Normal - Motor Arms Motor Arm-Left: No drift for 10 seconds Motor Arm-Right: No drift for 10 seconds - Motor Legs Motor Leg-Left: No drift for 5 seconds Motor Leg-Right: No drift for 5 seconds - Limb Ataxia Limb Ataxia: Absent of affected limb too weak to perform exam - Sensory Sensory: Mild to moderate loss, "not as sharp" - Best Language Best Language: No aphasia - Dysarthria Dysarthria: Normal - Extinction and Inattention Extinction and Inattention: Normal - NIHSS Total Score NIHSS Total Score: 1 TPA Checklist - LKW: 3-4.5 hrs Add. Warnings/Precautions Patient/family understanding: The patient/family members have been counseled and understood the risk, benefit , and alternatives of treatment. Nandini - Nandini Situation: Demographics Background: Presenting Complaint Assessment: Vital Signs, Course and respsone to treatment, Patient/Family Expectation Recommendation: Barrier(s) to disposition, Recommendation based on pending studies, treatments, or consults Nandini Report Given to: Dr. Adriel Delatorre Repor Time: 10:53 Attestation Statement - Attestation Attestation: I, Heath Pritchard DO, examined this patient [id number] and my medical decision-making was reviewed with Dr. Salvadro Horne, Resident Physician. I agree with the documented findings, disposition and treatment plan as described except to the extent set forth below. Please see my progress notes for details.
[2018-04-13 08:16] LABS: Basophils % 0.2 %; Eosinophils # 0.3 K/mcL (0.0-0.6); Eosinophils % 2.3 %; Hematocrit 26.4 % (35.3-44.9); Hemoglobin 8.1 g/dL (11.5-15.4); Immature Granulocytes % 0.6 % (0-4); Lymphocytes # 0.7 K/mcL (0.6-4.6); Lymphocytes % 4.8 %; Mean Corpuscular HGB Conc 30.7 g/dL (31.6-35.5); Mean Corpuscular Hemoglobin 28.4 pg (28.0-33.3); Mean Corpuscular Volume 92.6 fL (83.0-100.0); Mean Platelet Volume 10.2 fL (9.4-12.4); Monocytes # 1.7 K/mcL (0.0-1.3); Monocytes % 11.3 %; Neutrophils # 12.2 K/mcL (1.6-8.9); Platelet Count 293 K/mcL (140-400); Red Blood Count 2.85 M/mcL (3.82-4.97); Red Cell Distribution Width 15.3 % (11.5-14.5); Segmented Neutrophils % 80.8 %
[2018-04-13 08:22] LABS: INR 1.3; Prothrombin Time 14.2 Seconds (9.4-12.1)
[2018-04-13 08:47] LABS: Troponin I 0.03 ng/mL (< 0.04)
[2018-04-13 08:48] LABS: Albumin 3.6 g/dL (3.5-5.7); Albumin/Globulin Ratio 1.1 (1.1-2.2); Bilirubin,Direct 0.1 mg/dL (0.0-0.2); Bilirubin,Indirect 0.3 mg/dL (0.0-1.2); Bilirubin,Total 0.4 mg/dL (0.3-1.0); Calcium 8.8 mg/dL (8.6-10.3); Globulin 3.4 g/dL (2.4-3.5); Potassium 5.9 mEq/L (3.5-5.1)
[2018-04-13 09:00] LABS: Thyroid Stimulating Hormone 1.859 mcIU/mL (0.340-5.600)
[2018-04-13] MEDS ORDERED: Aspirin 325 MG TABLET PO ONE ×2 (09:10→09:39)
--- NOTE | 2018-04-13 10:24 | Emergency Department Note ---
Disposition Clinical Impression: Left arm numbness, Hyperkalemia CHF (congestive heart failure) Qualifiers: Heart failure type: unspecified Heart failure chronicity: unspecified Qualified Code(s): I50.9 - Heart failure, unspecified Chronic kidney disease Qualifiers: Chronic kidney disease stage: unspecified stage Qualified Code(s): N18.9 - Chronic kidney disease, unspecified Anemia Qualifiers: Anemia type: unspecified type Qualified Code(s): D64.9 - Anemia, unspecified Disposition: Admitted As Inpatient Condition: Fair Referrals: Geremias Ryan DO [Partnered Physician] - Forms: ED Satisfaction Letter Time of Disposition: 10:54 General Adult HPI - General Chief complaint: ED Neuro Symptoms/Deficit Stated complaint: L arm numbness Time Seen by Provider: 04/13/18 07:44 Source: patient Mode of arrival: ambulatory Limitations: no limitations - History of Present Illness Pain Scale: 4 - Related Data Home Medications Medication Instructions Recorded Confirmed Aspirin [Adult Low Dose Aspirin EC] 81 mg PO DAILY 11/15/15 04/13/18 Insulin ASPART [Novolog Flexpen] 15 unit SQ TIDWM MDD + SLIDING 11/15/15 SCALE Ferrous Sulfate 325 mg PO DAILY 11/29/16 04/13/18 Hydralazine HCl 100 mg PO TID 11/29/16 04/13/18 [place]-3/Dha/Epa/Fish Oil [Fish Oil 1 cap PO DAILY 11/29/16 04/13/18 1,000 mg Softgel] ALPRAZolam [Xanax 0.5 MG Tablet] 0.5 mg PO BID PRN 08/08/17 04/13/18 Apixaban [Eliquis] 2.5 mg PO BID 08/08/17 04/13/18 Pravastatin Sodium [Pravachol] 80 mg PO QPM 08/08/17 04/13/18 Oxygen 2 l NS AD 09/22/17 04/13/18 Furosemide [Lasix] 40 mg PO DAILY PRN 10/19/17 04/13/18 Dulaglutide [Trulicity] 0.75 mg SQ TH 04/13/18 04/13/18 Gabapentin [Neurontin] 100 mg PO BID 04/13/18 04/13/18 Insulin Degludec [Tresiba 62 unit SQ HS 04/13/18 04/13/18 Flextouch U-200] dilTIAZem HCl [Diltiazem 24Hr ER] 120 mg PO DAILY 04/13/18 04/13/18 Previous Rx's Medication Instructions Recorded cloNIDine HCl [Clonidine HCl] 0.3 mg PO TID #90 tab 03/05/17 Albuterol Sulfate [Proair Hfa] 1 puff IH Q4H PRN #1 inh 05/11/17 Carvedilol [Coreg] 25 mg PO BIDWM #60 tablet 08/18/17 Spironolactone [Aldactone] 50 mg PO DAILY #10 tablet 09/13/17 Allergies Allergy/AdvReac Type Severity Reaction Status Date / Time Sulfa (Sulfonamide Allergy Severe Swelling Verified 04/10/18 15:11 Antibiotics) of Lip/Tongue/Throat Constitutional: Denies: fever Cardiovascular: Denies: chest pain Respiratory: Reports: dyspnea. Denies: cough, sputum production Gastrointestinal: Denies: abdominal pain, nausea, vomiting Past Medical History - Past Medical History Medical history: Reports: arthritis, asthma, atrial fibrillation, cancer, CHF, COPD, coronary artery disease, diabetes, hyperlipidemia, hypertension, myocardial infarction Surgical history: Reports: angioplasty/stent, cholecystectomy, colectomy, coronary bypass (CABG), other Psychiatric history: Reports: anxiety, depression COMPENSATION SPECIALIST history: Reports: no COMPENSATION SPECIALIST history - Social History Smoking Status: Never smoker Smokeless Tobacco Status: No Alcohol use: Reports: none Drug use: Reports: none Physical Exam - General Limitations: no limitations General appearance: alert, in no apparent distress Course Vital Signs Temperature 99.0 F 04/13/18 07:44 Pulse Rate 86 04/13/18 07:44 Respiratory Rate 12 04/13/18 07:44 Blood Pressure 167/82 04/13/18 07:44 O2 Sat by Pulse Oximetry 95 04/13/18 07:44 Temperature 99.0 F 04/13/18 07:49 Pulse Rate 95 04/13/18 10:02 Respiratory Rate 18 04/13/18 10:02 Blood Pressure 158/69 04/13/18 10:02 O2 Sat by Pulse Oximetry 99 04/13/18 10:02 Oxygen Delivery Oxygen Delivery Room Air Medical Decision Making - Lab Data Result diagrams: 04/13/18 08:10 04/13/18 08:10 Lab Results 04/13/18 04/13/18 04/13/18 Range/Units 08:10 08:10 08:10 WBC 15.1 H (4.3-11.1) K/mcL RBC 2.85 L (3.82-4.97) M/mcL Hgb 8.1 L D (11.5-15.4) g/dL Hct 26.4 L (35.3-44.9) % MCV 92.6 (83.0-100.0) fL MCH 28.4 (28.0-33.3) pg MCHC 30.7 L (31.6-35.5) g/dL RDW 15.3 H (11.5-14.5) % Plt Count 293 (140-400) K/mcL MPV 10.2 (9.4-12.4) fL Immature Gran % 0.6 (0-4) % Seg Neutrophils % 80.8 % Lymphocytes % 4.8 % Monocytes % 11.3 % Eosinophils % 2.3 % Basophils % 0.2 % Neutrophils # 12.2 H (1.6-8.9) K/mcL Lymphocytes # 0.7 (0.6-4.6) K/mcL Monocytes # 1.7 H (0.0-1.3) K/mcL Eosinophils # 0.3 (0.0-0.6) K/mcL Basophils # 0.0 (0.0-0.2) K/mcL PT 14.2 H (9.4-12.1) Seconds INR 1.3 APTT 30.0 (26.0-36.0) Seconds Sodium 131 L (136-145) mEq/L Potassium 5.9 H (3.5-5.1) mEq/L Chloride 104 (98-107) mEq/L Carbon Dioxide 23 (23-29) mEq/L BUN 57 H (8-23) mg/dL Creatinine 2.17 H (0.60-1.20) mg/dL Est GFR ( Amer) 27 L (> 60) Est GFR (Non-Af Amer) 22 L (> 60) BUN/Creatinine Ratio 26 (6-26) Glucose 147 H (70-105) mg/dL Calculated Osmolality 291 (280-300) Calcium 8.8 (8.6-10.3) mg/dL Total Bilirubin 0.4 (0.3-1.0) mg/dL Direct Bilirubin 0.1 (0.0-0.2) mg/dL Indirect Bilirubin 0.3 (0.0-1.2) mg/dL AST 12 L (13-39) Units/L ALT 10 (7-52) Units/L Alkaline Phosphatase 125 H (34-104) Units/L Troponin I 0.03 (< 0.04) ng/mL Serum Total Protein 7.0 (6.4-8.9) g/dL Albumin 3.6 (3.5-5.7) g/dL Globulin 3.4 (2.4-3.5) g/dL Albumin/Globulin Ratio 1.1 (1.1-2.2) TSH 1.859 (0.340-5.600) mcIU/mL Attestation Statement - Attestation Attestation: I, Heath Pritchard DO, examined this patient [id number] and my medical decision-making was reviewed with Dr. Salvador Horne, Resident Physician. I agree with the documented findings, disposition and treatment plan as described except to the extent set forth below. Please see my progress notes for details. 72-year-old female presents emergency room from home for evaluation of what she described as some numbness and tingling left side of her face to left upper extremity and left side of her chest wall along with some slight slurred speech. On arrival, the patient had left-sided facial droop at the margin of the mouth but otherwise is alert oriented and following commands. Patient has no acute neurologic deficits initially on exam outside of a slight left-sided limp leg as well as what she describes paresthesias to the face and left upper extremity. Patient has no trauma or injuries otherwise. She is alert she is oriented she speaks in full sentences. Matter pupils are equal round reactive extraocular muscles are intact there is no nice diagnosis noted on exam oropharynx. Trachea is midline she has no stridor no trismus. Lungs are clear heart is regular abdomen is soft. Patient has full range of motion of the upper and lower extremities with no cerebellar function deficits noted. Her NIH stroke scale is 1 based on the facial asymmetry. Patient is outside the window for emergent TPA or medication intervention at this time considering she woke up with the symptoms here today. Patient will have evaluation completed a CT of the head and CT angiography of the head and neck will be ordered. Vital signs reviewed and are stable. Patient has clear lungs heart is regular abdomen soft. CBC chemistry troponin EKG chest x-ray CT the head along with urinalysis will be collected and disposition will most likely be admission the hospital. Patient is otherwise clinically stable showing no acute neurologic deficits at this time onset of a slight left-sided facial droop. See detailed documentation of physical exam, medical intervention, medical decision-making and disposition the resident physician's note. 0845 Patient was unable to have CT angiography of the head neck considering her renal insufficiency. The remainder the labs appear to be at baseline hemoglobin is 8.1. She does have known cancer of the kidneys, colon, skin. Patient is concerning secondary to strokelike symptoms as well as a confounding medical issues and will be admitted for further evaluation most likely MRI and symptomatically control. Patient is otherwise clinically stable at this time disposition will be admission at this point. 1045 Hospitalist was contacted at this time. Detailed review the presentation symptoms recommendations for medical intervention were discussed with Dr. Morel. No other acute concerns or issues noted at this point. MRI was requested so that will be ordered at this time and urine is still pending. Admission processes has been established. We will continue to monitor the patient here in the emergency room until admission processes has been completed
[2018-04-13 11:07] LABS: Bilirubin,Urine Negative (Negative); Blood,Urine Negative (Negative); Clarity,Urine Clear (Clear); Color,Urine Yellow (Yellow); Glucose,Urine (UA) Normal (Normal); Ketones,Urine Negative (Negative); Leukocyte Esterase,Urine Large (Negative); Nitrite,Urine Negative (Negative); PH,Urine 6.5 pH Units (5.0-8.0); Protein,Urine 100 mg/dL (Neg-Trace); Specific Gravity,Urine 1.015 (1.010-1.025); Urobilinogen,Urine Normal (Normal)
[2018-04-13 11:17] LABS: Bacteria,Urine Many per hpf (None-Few); RBC,Urine 0-3 per hpf (0-3); Squamous Epithelial Cell,Urine Few per lpf (None-Few); WBC,Urine TNTC per hpf (0-3)
[2018-04-13] MEDS ORDERED: Acetaminophen 325 MG TABLET PO PRN (11:29)
[2018-04-13] MEDS ORDERED: Naloxone 0.4 MG/ML INJ IVP PRN (11:29)
[2018-04-13] MEDS ORDERED: cefTRIAXone 1,000 MG in Water for inj. (sterile) 20 ML 10 ML IVP ONE (11:29)
[2018-04-13] MEDS ORDERED: Furosemide 40 MG TABLET PO PRN (11:33)
[2018-04-13] MEDS ORDERED: ALPRAZolam 0.5 MG TABLET PO PRN (11:33)
[2018-04-13] MEDS ORDERED: NON-FORMULARY MEDICATION 1 EACH EACH (Oxygen [Oxygen] 2 L) NS SCH (11:45)
--- NOTE | 2018-04-13 11:51 | Internal Med History&Physical ---
Date of Encounter: 04/13/18 Time of Encounter: 10:30 Internal Medicine - H&P: HPI Chief complaint: Left arm numbness Admitted From: Home Plans for Post Hospital Care: Home History of present illness: Ms. Hitchcock is a 72 year old female present to ER for left arm numbness. Past medical history is significant for CAD S/P CABG and stent, A. fib on Eliquis, Iron deficiency anemia, CKD, S/P colectomy for colon cancer, S/P nephrectomy for renal cancer, sarcoma. Patient went to sleep yesterday evening around 10 PM without numbness. When she wake-up this morning around 6 AM, she has left arm numbness and tingling. Patient denies weakness, facial drop, vision change, slurred speech. She denies vertigo. She denies chest pain or shortness of breath. Patient can walk by herself. In the emergency room, CT head has been done, which is negative for acute change. The numbness persists. Patient was admitted to rule out CVA. Past Med Surg Social Fam HX - Past Medical History Medical history: arthritis, asthma, atrial fibrillation, cancer, CHF, COPD, coronary artery disease, diabetes, hyperlipidemia, hypertension, myocardial infarction Additional medical history: colon cancer. knee cancer. kidney cancer Psychiatric history: anxiety, depression - Past Surgical History Surgical History: angioplasty/stent, cholecystectomy, colectomy, coronary bypass (CABG), other Additional surgical history: Colon resection d/t cancer; nephrectomy - Social History Smoking Status: Never smoker Smokeless Tobacco Status: No Alcohol use: none Drug use: none - Family History Father Family Member Ethnicity: Non- Living Status: Hx Family Cardiac Disorders: Yes (CHF, CAD, [place]) Hx Family Respiratory Disorders: No Hx Family Cancer: No Hx Family GI Disorders: No Hx Family Endocrine Disorder: No Hx Family Neuromuscular Disorders: No Hx Family Neurologic Disorders: No Hx Family HEENT Disorders: No Hx Family Autoimmune Disorders: No Brother Family Member Ethnicity: Non- Living Status: Hx Family Cancer: Yes (Throat) Sister Family Member Ethnicity: Non- Living Status: Hx Family Respiratory Disorders: Yes (Emphysema) Hx Family Cancer: Yes (Breast) Mother Family Member Ethnicity: Non- Living Status: Hx Family Cardiac Disorders: No Hx Family Respiratory Disorders: Yes (asthma) Hx Family Cancer: Yes (Colon) Hx Family GI Disorders: No Hx Family Endocrine Disorder: No Hx Family Neuromuscular Disorders: No Hx Family Neurologic Disorders: No Hx Family HEENT Disorders: No Hx Family Autoimmune Disorders: No Internal Medicine - H&P: Meds Aspirin [Adult Low Dose Aspirin EC] 81 mg PO DAILY 11/15/15 [History] Insulin ASPART [Novolog Flexpen] 15 unit SQ TIDWM MDD + SLIDING SCALE 11/15/15 [ History] Ferrous Sulfate 325 mg PO DAILY 11/29/16 [History] Hydralazine HCl 100 mg PO TID 11/29/16 [History] [place]-3/Dha/Epa/Fish Oil [Fish Oil 1,000 mg Softgel] 1 cap PO DAILY 11/29/16 [ History] cloNIDine HCl [Clonidine HCl] 0.3 mg PO TID #90 tab 03/05/17 [Rx] Albuterol Sulfate [Proair Hfa] 1 puff IH Q4H PRN #1 inh 05/11/17 [Rx] ALPRAZolam [Xanax 0.5 MG Tablet] 0.5 mg PO BID PRN 08/08/17 [History] Apixaban [Eliquis] 2.5 mg PO BID 08/08/17 [History] Pravastatin Sodium [Pravachol] 80 mg PO QPM 08/08/17 [History] Carvedilol [Coreg] 25 mg PO BIDWM #60 tablet 08/18/17 [Rx] Spironolactone [Aldactone] 50 mg PO DAILY #10 tablet 09/13/17 [Rx] Oxygen 2 l NS AD 09/22/17 [History] Furosemide [Lasix] 40 mg PO DAILY PRN 10/19/17 [History] Dulaglutide [Trulicity] 0.75 mg SQ TH 04/13/18 [History] Gabapentin [Neurontin] 100 mg PO BID 04/13/18 [History] Insulin Degludec [Tresiba Flextouch U-200] 62 unit SQ HS 04/13/18 [History] dilTIAZem HCl [Diltiazem 24Hr ER] 120 mg PO DAILY 04/13/18 [History] 3 Allergy/AdvReac Type Severity Reaction Status Date / Time Sulfa (Sulfonamide Allergy Severe Swelling Verified 04/10/18 15:11 Antibiotics) of Lip/Tongue/Throat All Systems PM: A 10-system review of systems was performed and is negative for pertinent findings except as documented above in the HPI. - Constitutional Vitals: Temp Pulse Resp BP Pulse Ox 99.0 F 95 18 145/88 99 04/13/18 07:49 04/13/18 10:02 04/13/18 11:39 04/13/18 11:39 04/13/18 10:02 General appearance: Present: A&O X 3, no acute distress, answers questions appropriately - Head Head exam: Present: atraumatic, normocephalic - Eye Eye exam: Present: PERRL, conjuntiva pink, sclera anicteric Pupils: Present: PERRL - Neck Neck exam general surgery: Present: supple, trachea midline. Absent: lymphadenopathy - Respiratory Respiratory exam: Present: CTAB. Absent: accessory muscle use, rales, rhonchi, wheezes - Cardiovascular Cardiovascular exam: Present: irregular rhythm, +S1, +S2, tachycardia. Absent: diastolic murmur, gallop, rubs, systolic murmur - GI/Abdominal GI/Abdominal exam: Present: normal bowel sounds, soft, no peritoneal signs. Absent: distended, tenderness - Extremities Exam Extremities exam: Present: pedal edema (Mild to moderate pedal edema bilaterally ), warm, radial pulses palpable and symmetrical. Absent: calf tenderness, cyanotic - Neurological Exam Neurological exam: Present: CN II-XII intact, motor sensory deficit (Decreased sensation on left arm), oriented X3, no focal deficits. Absent: pronater drift , facial droop, speech deficit - Skin Skin exam: Present: dry, intact Internal Med - H&P Results - Labs CBC & Chem 7: 04/13/18 08:10 04/13/18 08:10 - Assessment and plan (1) Chronic kidney disease Current Visit: Yes Status: Acute Assessment and plan: Patient has nephrectomy. Has only one kidney. Avoid nephrotoxic medications. Closely monitor renal function. Qualifiers: Chronic kidney disease stage: stage 3 (moderate) Qualified Code(s): N18.3 - Chronic kidney disease, stage 3 (moderate) (2) Hyperkalemia Current Visit: Yes Status: Acute Assessment and plan: Mild hyperkalemia, K 5.9. Will temporarily hold home medication spironolactone. Closely monitor potassium level. (3) Left arm numbness Current Visit: Yes Status: Acute Assessment and plan: Need to rule out CVA. CT head shows no bleeding. - Order MRI - Continue cardiac monitoring - Echo and duplex carotid b/l - NIHSS protocol - Consult neurology - Patient is on aspirin and Eliquis and statin. (4) Anemia Current Visit: Yes Status: Chronic Assessment and plan: Patient has Iron deficiency anemia. She had blood transfusion yesterday in oncology office. Hemoglobin 8.1 today. Continue iron pills. Qualifiers: Anemia type: iron deficiency Qualified Code(s): D50.0 - Iron deficiency anemia secondary to blood loss (chronic) (5) Atrial fibrillation and flutter Current Visit: No Status: Acute Assessment and plan: Continue home medication carvedilol and Cardizem for rate control. Continue Eliquis for anticoagulation. (6) DVT prophylaxis Current Visit: No Status: Acute Assessment and plan: Patient is on Eliquis. (7) Diabetes mellitus Current Visit: No Status: Chronic Assessment and plan: Continue basal and sliding scale insulin coverage. Closely monitor glucose level. 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
[2018-04-13] MEDS ORDERED: Dextrose Gel 15 GM/37.5 ML TUBE PO PRN ×2 (13:56)
[2018-04-13] MEDS ORDERED: *HR* Dextrose 50 % in Water (Syg) 50 ML SYRINGE IVP PRN (13:56)
[2018-04-13] MEDS ORDERED: D5% in Water 1,000 ML IVC PRN (13:56)
[2018-04-13] MEDS ORDERED: cefTRIAXone 1,000 MG in 0.9 % Sodium Chloride Mini Bag 100 ML IVPB SCH (15:00)
[2018-04-13] MEDS: cloNIDine HCl 0.1 MG TABLET PO SCH ×2 (15:12→21:00)
[2018-04-13] MEDS: hydrALAZINE 25 MG TABLET PO SCH ×2 (15:12→21:00)
[2018-04-13] MEDS: Diltiazem CD (24hr) 120 MG CAPSULE PO SCH (15:12)
--- NOTE | 2018-04-13 15:13 | Neurology - Consult Note ---
Date of Encounter: 04/13/18 Time of Encounter: 15:11 Assessment and Plan (1) Left arm numbness Current Visit: Yes Status: Acute At this juncture I do not have a definitive etiology to explain the left arm numbness. Essentially she has is numbness localized to the left upper extremity not within regard for any particular dermatome. She also has weakness of the left upper extremity which seems to be give way. She has no evidence of dysarthric speech and left facial droop or weakness of the left lower extremity. It is possible that she could maybe have had an infarcted Deana showed up on the diffusion imaging study however this would be unlikely. I wonder if perhaps we may be dealing with a mononeuropathy, however I do not find any specific pattern of weakness that fits within the confines of the peripheral nerve. At this point I would simply recommend following up on the results of the echocardiogram and the carotid Doppler studies. If the carotid Doppler study shows evidence of stenosis involving the right internal carotid artery circulation then I would recommend vascular eval. Otherwise I would recommend perhaps physical therapy is necessary for the left upper extremity and I would like to follow up with her after discharge to perhaps conduct an EMG study of the left upper extremity. Otherwise I will reevaluate her at your request. History of Present Illness HPI: The chart was reviewed, the patient was seen and examined. Ms. Hitchcock is a 72 year old female who is being seen for neurologic consultation secondary to numbness of the left upper extremity. Apparently she went to bed last night without any difficulty at around 10:00 PM. She states that she woke up this morning at about 6:00 AM and felt numbness of the left upper extremity. She is really not a good historian and I try to identify whether or not there are specific fingers involved when I was the whole arm. She denied any numbness of the face denied any speech difficulties denied any paresthesias or weakness of the left leg. She states that she still has some residual numbness in the dorsum of the left hand. Upon admission CT scan of the brain did not reveal evidence of any acute process. Blood pressure was 167/82. She does have a history of atrial fibrillation, hypertension and diabetes. MRI scan of the brain has been completed however the interpretation is yet pending. I did review the study and there is no evidence of an acute ischemic infarct. She does however have scattered deep white matter hyperintensities. Currently echocardiogram and carotid Doppler studies are pending. She is currently sitting up in bed awake and alert without difficulty. Past Med Surg Social Fam HX - Past Medical History Medical history: arthritis, asthma, atrial fibrillation, cancer, CHF, COPD, coronary artery disease, diabetes, hyperlipidemia, hypertension, myocardial infarction Additional medical history: colon cancer. knee cancer. kidney cancer Psychiatric history: anxiety, depression - Past Surgical History Surgical History: angioplasty/stent, cholecystectomy, colectomy, coronary bypass (CABG), other Additional surgical history: Colon resection d/t cancer; nephrectomy - Social History Smoking Status: Never smoker Smokeless Tobacco Status: No Alcohol use: none Drug use: none - Family History Father Family Member Ethnicity: Non- Living Status: Age at : 72 Cause of : "Coronary Occlusion" Hx Family Cardiac Disorders: Yes (CHF, CAD, MD) Hx Family Respiratory Disorders: No Hx Family Cancer: No Hx Family GI Disorders: No Hx Family Endocrine Disorder: No Hx Family Neuromuscular Disorders: No Hx Family Neurologic Disorders: No Hx Family HEENT Disorders: No Hx Family Autoimmune Disorders: No Hx Family Medical Disorders: Yes Brother Family Member Ethnicity: Non- Living Status: Hx Family Cancer: Yes (Throat) Sister Family Member Ethnicity: Non- Living Status: Hx Family Respiratory Disorders: Yes (Emphysema) Hx Family Cancer: Yes (Breast) Mother Family Member Ethnicity: Non- Living Status: Hx Family Cardiac Disorders: No Hx Family Respiratory Disorders: Yes (asthma) Hx Family Cancer: Yes (Colon) Hx Family GI Disorders: No Hx Family Endocrine Disorder: No Hx Family Neuromuscular Disorders: No Hx Family Neurologic Disorders: No Hx Family HEENT Disorders: No Hx Family Autoimmune Disorders: No Medications and Allergies Aspirin [Adult Low Dose Aspirin EC] 81 mg PO DAILY 11/15/15 [History] Insulin ASPART [Novolog Flexpen] 15 unit SQ TIDWM MDD + SLIDING SCALE 11/15/15 [ History] Ferrous Sulfate 325 mg PO DAILY 11/29/16 [History] Hydralazine HCl 100 mg PO TID 11/29/16 [History] [place]-3/Dha/Epa/Fish Oil [Fish Oil 1,000 mg Softgel] 1 cap PO DAILY 11/29/16 [ History] cloNIDine HCl [Clonidine HCl] 0.3 mg PO TID #90 tab 03/05/17 [Rx] Albuterol Sulfate [Proair Hfa] 1 puff IH Q4H PRN #1 inh 05/11/17 [Rx] ALPRAZolam [Xanax 0.5 MG Tablet] 0.5 mg PO BID PRN 08/08/17 [History] Apixaban [Eliquis] 2.5 mg PO BID 08/08/17 [History] Pravastatin Sodium [Pravachol] 80 mg PO QPM 08/08/17 [History] Carvedilol [Coreg] 25 mg PO BIDWM #60 tablet 08/18/17 [Rx] Spironolactone [Aldactone] 50 mg PO DAILY #10 tablet 09/13/17 [Rx] Oxygen 2 l NS AD 09/22/17 [History] Furosemide [Lasix] 40 mg PO DAILY PRN 10/19/17 [History] Dulaglutide [Trulicity] 0.75 mg SQ TH 04/13/18 [History] Gabapentin [Neurontin] 100 mg PO BID 04/13/18 [History] Insulin Degludec [Tresiba Flextouch U-200] 62 unit SQ HS 04/13/18 [History] dilTIAZem HCl [Diltiazem 24Hr ER] 120 mg PO DAILY 04/13/18 [History] 3 Allergy/AdvReac Type Severity Reaction Status Date / Time Sulfa (Sulfonamide Allergy Severe Swelling Verified 04/10/18 15:11 Antibiotics) of Lip/Tongue/Throat All Systems: The remainder of the systems were reviewed and are negative Review of Systems: The balance of the systems review is negative. Physical Examination - Vital Signs Vital Signs: Initial Vital Signs Temp Pulse Resp BP Pulse Ox 99.0 F 86 12 167/82 95 04/13/18 07:44 04/13/18 07:44 04/13/18 07:44 04/13/18 07:44 04/13/18 07:44 - Neurologic Motor examination - right side: 5/5: deltoids, biceps, triceps, general internist, hip flexors, tibialis Anterior, quadriceps, toe extension (EHL), plantarflexion Motor examination - left side: 4/5: biceps, triceps, general internist, 5/5: deltoids, quadriceps, tibialis Anterior, toe extension (EHL), plantarflexion Detailed sensory examination: intact Reflexes: Biceps: 2+, Triceps: 1+, Brachioradialis: 3+, Patella: 0, Achilles: 0 Mental Status Examination: awake, alert, oriented to person, oriented to place, follows commands appropriately, no agnosia, no aphasia, no aproxia Cranial nerve examination: PERRL, EOMI, visual cast intact, corneal reflexes brisk symmetrically, sensory to face intact, mastication intact, no facial asymmetry is present, no dysarthria, hearing is intact symmetrically, soft palate elevates bilaterally upon phonation, gag reflex intact, flexes SCM and trapezius muscles symmetrically with full power, tongue protrudes midline, no atrophy or facial fasiculations present Cerebellar examination: no dysmetria, performs finger to nose and heel to pak symmetrically without ataxia Results - Laboratory Findings CBC and BMP: 04/13/18 08:10 04/13/18 08:10 Abnormal lab findings: Abnormal lab results WBC 15.1 K/mcL (4.3-11.1) H 04/13/18 08:10 RBC 2.85 M/mcL (3.82-4.97) L 04/13/18 08:10 Hgb 8.1 g/dL (11.5-15.4) L D 04/13/18 08:10 Hct 26.4 % (35.3-44.9) L 04/13/18 08:10 MCHC 30.7 g/dL (31.6-35.5) L 04/13/18 08:10 RDW 15.3 % (11.5-14.5) H 04/13/18 08:10 Neutrophils # 12.2 K/mcL (1.6-8.9) H 04/13/18 08:10 Monocytes # 1.7 K/mcL (0.0-1.3) H 04/13/18 08:10 PT 14.2 Seconds (9.4-12.1) H 04/13/18 08:10 Sodium 131 mEq/L (136-145) L 04/13/18 08:10 Potassium 5.9 mEq/L (3.5-5.1) H 04/13/18 08:10 BUN 57 mg/dL (8-23) H 04/13/18 08:10 Creatinine 2.17 mg/dL (0.60-1.20) H 04/13/18 08:10 Est GFR ( Amer) 27 (> 60) L 04/13/18 08:10 Est GFR (Non-Af Amer) 22 (> 60) L 04/13/18 08:10 Glucose 147 mg/dL (70-105) H 04/13/18 08:10 AST 12 Units/L (13-39) L 04/13/18 08:10 Alkaline Phosphatase 125 Units/L (34-104) H 04/13/18 08:10 Urine Protein 100 mg/dL (Neg-Trace) H 04/13/18 10:47 Ur Leukocyte Esterase Large (Negative) H 04/13/18 10:47 Urine Microscopic WBC TNTC per hpf (0-3) H 04/13/18 10:47 Urine Bacteria Many per hpf (None-Few) H 04/13/18 10:47 Ur Culture Indicated? YES (NO) A 04/13/18 10:47 Consult Discharge Plan - Plan Referrals: Geremias Ryan DO [Primary Care Provider] -
[2018-04-13] MEDS: Insulin LISPRO 300 UNITS/3 ML VIAL SQ SCH ×2 (17:07→21:00)
[2018-04-13] MEDS: Gabapentin 100 MG CAPSULE PO SCH (20:59)
[2018-04-13] MEDS: Apixaban 2.5 MG TABLET PO SCH (21:00)
[2018-04-13] MEDS: Insulin DETEMIR 100 UNIT/ML X5UNITS SQ SCH (21:00)
[2018-04-14 05:16] LABS: Basophils % 0.2 %; Eosinophils # 0.3 K/mcL (0.0-0.6); Eosinophils % 2.1 %; Immature Granulocytes % 0.4 % (0-4); Lymphocytes % 6.6 %; Mean Corpuscular HGB Conc 30.4 g/dL (31.6-35.5); Mean Platelet Volume 10.5 fL (9.4-12.4); Monocytes # 1.9 K/mcL (0.0-1.3); Monocytes % 12.9 %; Neutrophils # 11.3 K/mcL (1.6-8.9); Platelet Count 269 K/mcL (140-400); Red Cell Distribution Width 15.2 % (11.5-14.5); Segmented Neutrophils % 77.8 %
[2018-04-14 05:33] LABS: Calcium 8.8 mg/dL (8.6-10.3); Chol/HDL Ratio 3.1 (0-4.9); Potassium 5.2 mEq/L (3.5-5.1)
[2018-04-14] MEDS: Insulin LISPRO 300 UNITS/3 ML VIAL SQ SCH ×4 (07:36→21:15)
[2018-04-14] MEDS: Gabapentin 100 MG CAPSULE PO SCH ×2 (08:19→21:15)
[2018-04-14] MEDS: cloNIDine HCl 0.1 MG TABLET PO SCH ×3 (08:19→21:14)
[2018-04-14] MEDS: Apixaban 2.5 MG TABLET PO SCH ×2 (08:19→21:15)
[2018-04-14] MEDS: hydrALAZINE 25 MG TABLET PO SCH ×3 (08:19→21:15)
[2018-04-14] MEDS: Diltiazem CD (24hr) 120 MG CAPSULE PO SCH (08:19)
[2018-04-14] MEDS: (Omega-3/Dha/Epa/Fish Oil [Fish Oil 1,000 Mg Softgel] PO SCH (08:19)
[2018-04-14] MEDS: Aspirin Enteric Coated 81 MG Tablet PO SCH (08:19)
[2018-04-14] MEDS ORDERED: cefTRIAXone 1,000 MG in 0.9 % Sodium Chloride Mini Bag 100 ML IVPB SCH (11:00)
[2018-04-14] MEDS: cefTRIAXone 1,000 MG in Water for inj. (sterile) 20 ML 10 ML IVP SCH (12:01)
[2018-04-14] MEDS ORDERED: Ondansetron 4 MG/2 ML VIAL IVP PRN (12:16)
--- NOTE | 2018-04-14 12:55 | Discharge Summary ---
<Bc Johns - Last Filed: 04/14/18 13:51> - NOTES TO OUTPATIENT PROVIDER Notes to Outpatient Provider: Patient will need a nerve conduction study in the outpatient setting. Orders not resulted at time of discharge: Pending orders 04/14/18 11:09 PRBC [Red Blood Cells] [BBK] Stat 04/14/18 14:30 Hemoglobin and Hematocrit [HEME] Timed Date of Encounter: 04/14/18 Time of Encounter: 12:52 - Discharge Diagnosis (1) Left arm numbness Priority: Primary Status: Acute Assessment and Plan: Patient was seen by neurology. MRI did not show any acute infarct. Carotid ultrasound was unremarkable. Neurology recommends a nerve conduction study. (2) Diabetes mellitus Priority: Secondary Status: Chronic Qualifiers: Diabetes mellitus type: type 2 Diabetes mellitus tool design draftsperson insulin use: with tool design draftsperson use Diabetes mellitus complication status: with hyperglycemia Qualified Code(s): E11.65 - Type 2 diabetes mellitus with hyperglycemia; Z79.4 - senior living (current) use of insulin (3) DVT prophylaxis Priority: Secondary Status: Acute (4) Anemia Priority: Secondary Status: Chronic Qualifiers: Anemia type: iron deficiency Qualified Code(s): D50.0 - Iron deficiency anemia secondary to blood loss (chronic) (5) Atrial fibrillation and flutter Priority: Secondary Status: Acute (6) Chronic kidney disease Priority: Secondary Status: Acute Qualifiers: Chronic kidney disease stage: stage 3 (moderate) Qualified Code(s): N18.3 - Chronic kidney disease, stage 3 (moderate) (7) Hyperkalemia Priority: Secondary Status: Acute Hospital course: Patient is a 72-year-old female with a PMH of CAD status post CABG with stent, atrial fibrillation Eliquis, iron deficiency anemia, chronic kidney disease, status post colectomy for colon cancer, status post nephrectomy for renal cancer , and sarcoma. She presented to [facility] with the chief complaint of numbness in the left upper extremity. She reported that the night before admission, she went to bed without difficulty at around 10 PM. She reported that on the morning of admission, she woke up at about 6 AM and felt numbness in the left upper extremity. Denied having any weakness, facial droop, visual change, slurred speech, or vertigo. She was able to walk by herself. In the emergency department, CT of the head was performed, which did not demonstrate any acute changes. She was admitted to rule out CVA. Brain MRI was performed, which demonstrated no acute intracranial abnormality with moderate cerebral white matter disease, most likely chronic small vessel ischemic changes. Neurology was consulted for further recommendations. Per review of neurology consult note , there is no definitive etiology to explain the left arm numbness. Carotid Doppler studies were performed, which were negative. Neurology recommended an EMG study of the left upper extremity. During her stay in the hospital, patient was found to have a low hemoglobin. Initial hemoglobin level was 8.1. On the second day of her admission, hemoglobin dropped to 7.0. One unit of packed red blood cells was ordered. Repeat H&H was subsequently ordered. - Time Spent with Patient Total time spent providing and/or coordinating discharge services: - Discharge Medications Prescriptions: Cephalexin [Keflex] 500 mg PO BID #6 capsule Home Medications: Aspirin [Adult Low Dose Aspirin EC] 81 mg PO DAILY 11/15/15 [History] Insulin ASPART [Novolog Flexpen] 15 unit SQ TIDWM MDD + SLIDING SCALE 11/15/15 [ History] Ferrous Sulfate 325 mg PO DAILY 11/29/16 [History] Hydralazine HCl 100 mg PO TID 11/29/16 [History] [place]-3/Dha/Epa/Fish Oil [Fish Oil 1,000 mg Softgel] 1 cap PO DAILY 11/29/16 [ History] cloNIDine HCl [Clonidine HCl] 0.3 mg PO TID #90 tab 03/05/17 [Rx] Albuterol Sulfate [Proair Hfa] 1 puff IH Q4H PRN #1 inh 05/11/17 [Rx] ALPRAZolam [Xanax 0.5 MG Tablet] 0.5 mg PO BID PRN 08/08/17 [History] Apixaban [Eliquis] 2.5 mg PO BID 08/08/17 [History] Pravastatin Sodium [Pravachol] 80 mg PO QPM 08/08/17 [History] Carvedilol [Coreg] 25 mg PO BIDWM #60 tablet 08/18/17 [Rx] Oxygen 2 l NS AD 09/22/17 [History] Furosemide [Lasix] 40 mg PO DAILY PRN 10/19/17 [History] Dulaglutide [Trulicity] 0.75 mg SQ TH 04/13/18 [History] Gabapentin [Neurontin] 100 mg PO BID 04/13/18 [History] Insulin Degludec [Tresiba Flextouch U-200] 62 unit SQ HS 04/13/18 [History] dilTIAZem HCl [Diltiazem 24Hr ER] 120 mg PO DAILY 04/13/18 [History] Cephalexin [Keflex] 500 mg PO BID #6 capsule 04/14/18 [Rx] Allergies/Adverse Reactions: 3 Allergy/AdvReac Type Severity Reaction Status Date / Time Sulfa (Sulfonamide Allergy Severe Swelling Verified 04/10/18 15:11 Antibiotics) of Lip/Tongue/Throat Date of admission: 04/13/18 11:04 Primary care physician: Geremias Ryan DO Consults: 04/13/18 11:37 Consult to Neurology [CONS] Routine Consulting Provider: [facility] Reason for Consult: Left arm numbness Call Completed: Yes 04/13/18 13:08 Consult to Information Specialist [CONS] Routine Reason for SW Consult: Home O2 @ HS @ 2L throught [facility] Discharging clinician: Bc Johns Anticipated date of discharge: 04/14/18 - Constitutional Vitals: Temp Pulse Resp BP Pulse Ox 97.5 F L 59 18 128/49 94 04/14/18 11:36 04/14/18 11:36 04/14/18 11:36 04/14/18 11:36 04/14/18 11:36 General appearance: Present: A&O X 3, no acute distress, answers questions appropriately - Head Head exam: Present: atraumatic, normocephalic - Respiratory Respiratory exam: Present: CTAB. Absent: accessory muscle use, rales, rhonchi, wheezes - Cardiovascular Cardiovascular exam: Present: RRR, +S1, +S2. Absent: diastolic murmur, gallop, rubs, systolic murmur - Neurological Exam Additional comments: Left arm numbness - Patient Status Disposition: Home, Self-Care Condition: Fair Overall status at discharge: patient is progressing back to baseline - Discharge Instructions Follow Up With: Geremias Ryan DO [Primary Care Provider] - - Diet and Activity Activity: increase activity as tolerated Diet: advance to your usual diet <Tong Damon - Last Filed: 04/14/18 17:10> - NOTES TO OUTPATIENT PROVIDER Notes to Outpatient Provider: Admitted with LUE numbness. Found to have UTI. Anemia - transfusion given. Needs outpatient neuro follow up. Date of Encounter: 04/14/18 - Discharge Diagnosis (1) UTI (urinary tract infection) Priority: Primary Status: Acute Qualifiers: Urinary tract infection type: acute cystitis Hematuria presence: without hematuria Qualified Code(s): N30.00 - Acute cystitis without hematuria (2) Diabetes mellitus Status: Chronic Qualifiers: Diabetes mellitus type: type 2 Diabetes mellitus tool design draftsperson insulin use: with tool design draftsperson use Diabetes mellitus complication status: with hyperglycemia Qualified Code(s): E11.65 - Type 2 diabetes mellitus with hyperglycemia; Z79.4 - snow blower (current) use of insulin (3) Anemia Status: Chronic Qualifiers: Anemia type: other cause Other causes of anemia: chronic disease, other Qualified Code(s): D63.8 - Anemia in other chronic diseases classified elsewhere (4) Left arm numbness Priority: Secondary Status: Resolved (5) Chronic kidney disease Status: Chronic Qualifiers: Chronic kidney disease stage: stage 3 (moderate) Qualified Code(s): N18.3 - Chronic kidney disease, stage 3 (moderate) (6) Hyperkalemia Status: Acute (7) Essential hypertension Priority: Secondary Status: Chronic Hospital course: Ms. Hitchcock is a 72 year old female - Time Spent with Patient Total time spent providing and/or coordinating discharge services: Date of admission: 04/13/18 11:04 Primary care physician: Geremias Ryan DO Consults: 04/13/18 11:37 Consult to Neurology [CONS] Routine Consulting Provider: [facility] Reason for Consult: Left arm numbness Call Completed: Yes 04/13/18 13:08 Consult to Information Specialist [CONS] Routine Reason for SW Consult: Home O2 @ HS @ 2L throught [facility] - Constitutional Vitals: Temp Pulse Resp BP Pulse Ox 98.3 F 55 18 125/55 94 04/14/18 15:53 04/14/18 15:53 04/14/18 15:53 04/14/18 15:53 04/14/18 15:53
[2018-04-14 14:57] LABS: Hemoglobin 7.4 g/dL (11.5-15.4)
[2018-04-14] MEDS ORDERED: 0.9 % Sodium Chloride 250 ML ONE (15:33)
[2018-04-14 19:48] LABS: Hemoglobin 8.3 g/dL (11.5-15.4)
[2018-04-14 20:08] LABS: Calcium 8.6 mg/dL (8.6-10.3); Potassium 5.4 mEq/L (3.5-5.1)
[2018-04-14] MEDS: Insulin DETEMIR 100 UNIT/ML X5UNITS SQ SCH (21:15)
[2018-04-15 06:53] LABS: Basophils % 0.2 %; Eosinophils # 0.3 K/mcL (0.0-0.6); Eosinophils % 2.1 %; Hematocrit 24.8 % (35.3-44.9); Hemoglobin 7.8 g/dL (11.5-15.4); Immature Granulocytes % 1.1 % (0-4); Immature Platelets 3.6 % (1.1-6.1); Lymphocytes # 1.1 K/mcL (0.6-4.6); Lymphocytes % 7.4 %; Mean Corpuscular HGB Conc 31.5 g/dL (31.6-35.5); Mean Corpuscular Hemoglobin 29.1 pg (28.0-33.3); Mean Corpuscular Volume 92.5 fL (83.0-100.0); Mean Platelet Volume 10.8 fL (9.4-12.4); Monocytes # 2.1 K/mcL (0.0-1.3); Monocytes % 14.5 %; Neutrophils # 10.5 K/mcL (1.6-8.9); Platelet Count 246 K/mcL (140-400); Red Blood Count 2.68 M/mcL (3.82-4.97); Red Cell Distribution Width 14.5 % (11.5-14.5); Segmented Neutrophils % 74.7 %
[2018-04-15 07:13] LABS: Bilirubin,Total 0.4 mg/dL (0.3-1.0); Calcium 8.6 mg/dL (8.6-10.3); Globulin 3.1 g/dL (2.4-3.5); Potassium 5.3 mEq/L (3.5-5.1); Total Protein 6.1 g/dL (6.4-8.9)
[2018-04-15] MEDS: Insulin LISPRO 300 UNITS/3 ML VIAL SQ SCH ×7 (07:51→20:42)
[2018-04-15] MEDS: hydrALAZINE 25 MG TABLET PO SCH ×3 (07:55→20:41)
[2018-04-15] MEDS: Apixaban 2.5 MG TABLET PO SCH ×2 (07:55→20:41)
[2018-04-15] MEDS: Aspirin Enteric Coated 81 MG Tablet PO SCH (07:55)
[2018-04-15] MEDS: cloNIDine HCl 0.1 MG TABLET PO SCH ×3 (07:55→20:41)
[2018-04-15] MEDS: Diltiazem CD (24hr) 120 MG CAPSULE PO SCH (07:55)
[2018-04-15] MEDS: Gabapentin 100 MG CAPSULE PO SCH ×2 (07:55→20:41)
[2018-04-15] MEDS: (Omega-3/Dha/Epa/Fish Oil [Fish Oil 1,000 Mg Softgel] PO SCH (07:56)
[2018-04-15] MEDS ORDERED: 0.9 % Sodium Chloride 1,000 ML IVC SCH ×2 (10:00→18:45)
[2018-04-15] MEDS: cefTRIAXone 1,000 MG in Water for inj. (sterile) 20 ML 10 ML IVP SCH (10:22)
[2018-04-15] MEDS: Iron Sucrose Complex 250 MG in 0.9 % Sodium Chloride 250 ML IVPB SCH (10:41)
[2018-04-15 15:39] LABS: Hematocrit 24.9 % (35.3-44.9); Hemoglobin 7.6 g/dL (11.5-15.4)
[2018-04-15 16:02] LABS: Calcium 8.1 mg/dL (8.6-10.3); Potassium 5.1 mEq/L (3.5-5.1)
--- NOTE | 2018-04-15 18:30 | Internal Med Progress Note ---
Hospitalist Progress Note - Encounter Date of Encounter: 04/15/18 Time of Encounter: 17:00 - Subjective Interval History: Ms Hitchcock is currently in observation for L arm numbness. She remains moderate to high risk. Ms Hitchcock was to go home yesterday and her K was high. This AM she still had elevated K and her H/H was starting to drift down. Recheck was lower and her creatinine is higher. She has not has upper GI work up for anemia. WBC elevated as well. No fever or chills. No CP or SOB. No GI issues. - Exam Vitals: Temp Pulse Resp BP Pulse Ox 99.2 F 67 19 124/54 96 04/15/18 15:06 04/15/18 15:06 04/15/18 15:06 04/15/18 15:06 04/15/18 15:06 Exam: General: Alert and oriented. Resting comfortably. Skin: Normal color, no rash, no lesions. H: EOM, pupils equal, round and reactive. EENT: Mucus membranes moist. No lesion. Cardiovascular: Normal S1 & S2, no rubs, murmurs or gallops. No JVD. Pulse regular. Lungs: Normal breath sounds, no wheezes or crackles. Abdomen: Soft, non-tender, no rigidity. Extremities: No deformity, no edema or tenderness, no joint swelling or clubbing. Neurological: Normal cognition and motor skills. No focal deficit. Pulses: Carotid and radial pulses normal +2. Rest of the physical exam is non contributory - Assessment and Plan (1) UTI (urinary tract infection) Current Visit: Yes Status: Acute Assessment and Plan: Currently on abx. Will complete 5 day course total. (2) Diabetes mellitus Current Visit: No Status: Chronic Assessment and Plan: Controlled now. Continue accuchecks and coverage. (3) Anemia Current Visit: Yes Status: Chronic Assessment and Plan: She continues to have issues with decreasing H/H. She has not had EGD. Will make NPO and discuss possible EGD tomorrow. (4) Chronic kidney disease Current Visit: Yes Status: Chronic Assessment and Plan: Creatinine has been fluctuating. Will give IV fluids overnight and recheck in AM. (5) Hyperkalemia Current Visit: Yes Status: Acute Assessment and Plan: K remains elevated. Will continue IV fluids overnight and hold aldactone. Recheck in AM. (6) Essential hypertension Current Visit: No Status: Chronic Assessment and Plan: Currently controlled. - Time Spent with Patient Total time spent is greater than 50% in coordination of care (as documented) at patient's floor/unit and/or counseling patient: Internal Medicine: Result - Labs CBC & Chem 7: 04/15/18 15:25 04/15/18 15:25 Labs: Short CBC 04/14/18 04/15/18 04/15/18 Range/Units 19:07 05:58 15:25 WBC 14.1 H (4.3-11.1) K/mcL Hgb 8.3 L 7.8 L 7.6 L (11.5-15.4) g/dL Hct 27.0 L 24.8 L 24.9 L (35.3-44.9) % Plt Count 246 (140-400) K/mcL Neutrophils # 10.5 H (1.6-8.9) K/mcL BMP 04/14/18 04/15/18 04/15/18 19:07 05:58 15:25 Sodium 130 L 133 L 132 L Potassium 5.4 H 5.3 H 5.1 Chloride 102 105 104 Carbon Dioxide 22 L 23 22 L BUN 48 H 49 H 50 H Creatinine 2.18 H 2.20 H 2.34 H Glucose 262 H 105 188 H Calcium 8.6 8.6 8.1 L Liver Function 04/15/18 Range/Units 05:58 Total Bilirubin 0.4 (0.3-1.0) mg/dL AST 18 (13-39) Units/L ALT 9 (7-52) Units/L Alkaline Phosphatase 96 (34-104) Units/L Albumin 3.0 L (3.5-5.7) g/dL - ABG Interpretation ABG results: PT/INR, D-dimer PT 14.2 Seconds (9.4-12.1) H 04/13/18 08:10 - Stroke Contraindication Rehab Services Not Assessed: Symptoms Resolved Consult Discharge Plan - Plan Instructions: Urinary Tract Infection in Women (DC) Referrals: Geremias Ryan DO [Primary Care Provider] - Prescriptions: Cephalexin [Keflex] 500 mg PO BID #6 capsule (1) UTI (urinary tract infection) Qualifiers: Urinary tract infection type: acute cystitis Hematuria presence: without hematuria Qualified Code(s): N30.00 - Acute cystitis without hematuria (2) Diabetes mellitus Qualifiers: Diabetes mellitus type: type 2 Diabetes mellitus retirement insulin use: with retirement use Diabetes mellitus complication status: with hyperglycemia Qualified Code(s): E11.65 - Type 2 diabetes mellitus with hyperglycemia; Z79.4 - exterminator (current) use of insulin (3) Anemia Qualifiers: Anemia type: other cause Other causes of anemia: chronic disease, other Qualified Code(s): D63.8 - Anemia in other chronic diseases classified elsewhere (4) Chronic kidney disease Qualifiers: Chronic kidney disease stage: stage 3 (moderate) Qualified Code(s): N18.3 - Chronic kidney disease, stage 3 (moderate)
[2018-04-15] MEDS: Insulin DETEMIR 100 UNIT/ML X5UNITS SQ SCH (20:41)
[2018-04-16 04:14] LABS: Hematocrit 24.1 % (35.3-44.9); Hemoglobin 7.3 g/dL (11.5-15.4); Mean Corpuscular HGB Conc 30.3 g/dL (31.6-35.5); Mean Corpuscular Hemoglobin 27.9 pg (28.0-33.3); Mean Platelet Volume 10.8 fL (9.4-12.4); Platelet Count 261 K/mcL (140-400); Red Blood Count 2.62 M/mcL (3.82-4.97); Red Cell Distribution Width 14.4 % (11.5-14.5)
[2018-04-16 04:32] LABS: Calcium 8.4 mg/dL (8.6-10.3); Potassium 4.7 mEq/L (3.5-5.1)
[2018-04-16] MEDS: Insulin LISPRO 300 UNITS/3 ML VIAL SQ SCH ×6 (07:33→15:48)
[2018-04-16] MEDS: Aspirin Enteric Coated 81 MG Tablet PO SCH (07:41)
[2018-04-16] MEDS: hydrALAZINE 25 MG TABLET PO SCH ×2 (07:41→16:12)
[2018-04-16] MEDS: cloNIDine HCl 0.1 MG TABLET PO SCH ×2 (07:41→16:11)
[2018-04-16] MEDS: Gabapentin 100 MG CAPSULE PO SCH (07:41)
[2018-04-16] MEDS: Diltiazem CD (24hr) 120 MG CAPSULE PO SCH (07:41)
[2018-04-16] MEDS: Apixaban 2.5 MG TABLET PO SCH (07:41)
[2018-04-16] MEDS: Iron Sucrose Complex 250 MG in 0.9 % Sodium Chloride 250 ML IVPB SCH (08:21)
[2018-04-16] MEDS ORDERED: *HR* Dextrose 50 % in Water (Syg) 50 ML SYRINGE IVP ONE (09:53)
--- NOTE | 2018-04-16 10:57 | Internal Med Progress Note ---
<OnurameyaritikaamySabina Jacquie - Last Filed: 04/16/18 17:53> Hospitalist Progress Note - Encounter Date of Encounter: 04/16/18 Time of Encounter: 08:00 - Subjective Interval History: Today, Miss Hitchcock is feeling shaky and nauseous due to hypoglycemia secondary to being NPO for EGD scope later today. During the course of interview and exam she stated that she was starting to feel better. She denies any vomiting. She states that her left arm weakness has resolved, and left arm numbness and tingling are decreased in severity. She admits to intermittent lightheadedness, intermittent epigastric pain but no reflux, and suprapubic pain. She states that she has had a previous umbilical hernia repair and one year ago while she had pneumonia and coughing, the hernia returned. She states that she hasn't told anyone about this before and is concerned about it. She states that she has a history of black stools and one episode of streaked blood on toilet paper one week ago. She states that she has chronic leg cramps that are present today. She denies shortness of breath, chest pain, fever, chills, diarrhea, constipation, dysuria or frequency. She admits to generalized leg pain but not calf pain. We discussed EGD today to evaluate anemia and questions were answered. - Exam Vitals: Temp Pulse Resp BP Pulse Ox 98.2 F 69 17 134/64 94 04/16/18 06:43 04/16/18 06:43 04/16/18 06:43 04/16/18 06:43 04/16/18 06:43 Exam: General: Resting comfortably, in no acute distress, AAOx3, pleasant HEENT: Normocephalic, atraumatic, EOMI, PERRL, mucus membranes moist. Neck soft , supple, trachea midline, no cervical lymphadenopathy. Cardio: Irregular rate and rhythm, no murmurs, rubs or gallops. Normal S1, S2. No carotid bruits. Pulmonary: No wheezes, rales or rhonchi. No accessory respiratory muscle use. Abdomen: Tenderness to palpation in epigastric and suprapubic areas. Reducible umbilical hernia. Soft, non distended, normal bowel sounds, no guarding, rebound or rigidity. Extremities: Radial and dorsal pedis pulses 2+ and symmetrical, normal capillary refill, no clubbing. No peripheral edema or calf tenderness. Neuro: CN 2-12 intact, no focal deficits. Sensation, motor and strength intact and symmetrical bilaterally Psych: Normal mood and affect, answers questions appropriately - Assessment and Plan (1) Anemia Status: Acute Assessment and Plan: History of iron deficiency anemia, on supplementation Previous transfusion at oncology office 04/10/18 before admission Hemoglobin on admission 8.1 Transfused 1 unit PRBCs inpatient on 04/14/18, hemoglobin increased to 8.3, has since decreased to 7.3 today Concern for GI bleed Surgery consulted and EGD performed: normal esophagus, duodenal bulb and entire examined stomach was normal. Biopsies were taken for H. pylori testing. Recommendation is to call Dr. Hester in one week for biopsy results. Continue PO iron supplementation, discontinue IV iron supplementation Discharge to home today (2) UTI (urinary tract infection) Status: Acute Assessment and Plan: Positive urinalysis on admission Urine culture positive for E. coli Currently day 4 of rocephin. Will need 5 total days antibiotic therapy, if discharged today will need one dose keflex outpatient. (3) Chronic kidney disease Status: Chronic Assessment and Plan: History of renal carcinoma, status post nephrectomy Avoid nephrotoxic medications Creatinine trending down today, 2.09 currently Continue to monitor renal function (4) Hyperkalemia Status: Acute Assessment and Plan: Improved Potassium of 5.9 on admission Held home medication spironolactone Potassium is 4.7 today Continue IV fluids (5) Atrial fibrillation and flutter Status: Chronic Assessment and Plan: History of atrial fibrillation and flutter Home medications of cardizem, carvedilol and eliquis Continue to monitor (6) Diabetes mellitus Status: Chronic Assessment and Plan: Controlled History of Diabetes Mellitus Currently on levemir 30 units Low dose sliding scale Symptoms of hypoglycemia most likely secondary to NPO while awaiting EGD (7) CHF (congestive heart failure) Status: Chronic Assessment and Plan: History of CHF ECHO shows LVEF 55%, atypical septal motion and no evidence of patent foramen ovale Continue home dose lasix Continue to monitor volume status (8) Left arm numbness Status: Resolved Assessment and Plan: States that symptoms have resolved Will need neurology appointment outpatient for EMG study as well as physical therapy MRI showed chronic small vessel ischemic change but no acute intracranial abnormality, carotid ultrasound unremarkable Continue home meds aspirin, eliquis and statin DVT Prophylaxis: Eliquis - Time Spent with Patient Total time spent is greater than 50% in coordination of care (as documented) at patient's floor/unit and/or counseling patient: Internal Medicine: Result - Labs CBC & Chem 7: 04/16/18 03:10 04/16/18 03:10 Labs: Short CBC 04/15/18 04/16/18 Range/Units 15:25 03:10 WBC 15.0 H (4.3-11.1) K/mcL Hgb 7.6 L 7.3 L (11.5-15.4) g/dL Hct 24.9 L 24.1 L (35.3-44.9) % Plt Count 261 (140-400) K/mcL BMP 04/15/18 04/16/18 15:25 03:10 Sodium 132 L 135 L Potassium 5.1 4.7 Chloride 104 109 H Carbon Dioxide 22 L 21 L BUN 50 H 45 H Creatinine 2.34 H 2.09 H Glucose 188 H 85 Calcium 8.1 L 8.4 L - ABG Interpretation ABG results: PT/INR, D-dimer PT 14.2 Seconds (9.4-12.1) H 04/13/18 08:10 - Stroke Contraindication Rehab Services Not Assessed: Symptoms Resolved Consult Discharge Plan - Plan Instructions: Urinary Tract Infection in Women (DC) Referrals: Geremias Ryan DO [Primary Care Provider] - (office will call patient at home with appointment date and time ) Prescriptions: Cephalexin [Keflex] 500 mg PO BID #6 capsule Mupirocin Calcium [Bactroban Nasal] 1 gm NS BID 5 Days #1 oint...g. <Tong Damon - Last Filed: 04/16/18 18:49> Hospitalist Progress Note - Encounter Date of Encounter: 04/16/18 - Exam Vitals: Temp Pulse Resp BP Pulse Ox 98.3 F 72 18 144/68 91 04/16/18 15:53 04/16/18 15:53 04/16/18 15:53 04/16/18 15:53 04/16/18 15:53 - Assessment and Plan (1) UTI (urinary tract infection) Status: Acute (2) Diabetes mellitus Status: Chronic (3) Anemia Status: Acute (4) Chronic kidney disease Status: Chronic (5) Hyperkalemia Status: Acute (6) Essential hypertension Status: Chronic - Time Spent with Patient Total time spent is greater than 50% in coordination of care (as documented) at patient's floor/unit and/or counseling patient: Internal Medicine: Result - Labs CBC & Chem 7: 04/16/18 03:10 04/16/18 03:10 Labs: Short CBC 04/16/18 Range/Units 03:10 WBC 15.0 H (4.3-11.1) K/mcL Hgb 7.3 L (11.5-15.4) g/dL Hct 24.1 L (35.3-44.9) % Plt Count 261 (140-400) K/mcL BMP 04/16/18 03:10 Sodium 135 L Potassium 4.7 Chloride 109 H Carbon Dioxide 21 L BUN 45 H Creatinine 2.09 H Glucose 85 Calcium 8.4 L - ABG Interpretation ABG results: PT/INR, D-dimer PT 14.2 Seconds (9.4-12.1) H 04/13/18 08:10 - Attending Attestation I examined this patient and my medical decision-making was reviewed with the Resident Physician on 04/16/18. I agree with the documented findings, disposition and treatment plan as described except to the extent set forth below. Ms Hitchcock is currently in observation for arm numbness and anemia. She had EGD today and no active bleeding. She is now afebrile and ready for discharge home. Exam Alert Comfortable Mucus membranes dry Heart reg No wheeze Abd soft No edema I/P 1. L arm numbness resolved 2. Anemia - follow up with hematology Further diagnoses and plan as above D/C home today. <Sabina Gutierrez - Last Filed: 04/16/18 17:53> (1) Anemia Qualifiers: Anemia type: other cause Other causes of anemia: chronic disease, other Qualified Code(s): D63.8 - Anemia in other chronic diseases classified elsewhere (2) UTI (urinary tract infection) Qualifiers: Urinary tract infection type: acute cystitis Hematuria presence: without hematuria Qualified Code(s): N30.00 - Acute cystitis without hematuria (3) Chronic kidney disease Qualifiers: Chronic kidney disease stage: stage 3 (moderate) Qualified Code(s): N18.3 - Chronic kidney disease, stage 3 (moderate) (6) Diabetes mellitus Qualifiers: Diabetes mellitus type: type 2 Diabetes mellitus mcc insulin use: with crisis worker use Diabetes mellitus complication status: with hyperglycemia Qualified Code(s): E11.65 - Type 2 diabetes mellitus with hyperglycemia; Z79.4 - dog handler (current) use of insulin Tong Chappell - Last Filed: 04/16/18 18:49> (1) UTI (urinary tract infection) Qualifiers: Urinary tract infection type: acute cystitis Hematuria presence: without hematuria Qualified Code(s): N30.00 - Acute cystitis without hematuria (2) Diabetes mellitus Qualifiers: Diabetes mellitus type: type 2 Diabetes mellitus mcc insulin use: with crisis worker use Diabetes mellitus complication status: with hyperglycemia Qualified Code(s): E11.65 - Type 2 diabetes mellitus with hyperglycemia; Z79.4 - prison (current) use of insulin (3) Anemia Qualifiers: Anemia type: other cause Other causes of anemia: chronic disease, other Qualified Code(s): D63.8 - Anemia in other chronic diseases classified elsewhere (4) Chronic kidney disease Qualifiers: Chronic kidney disease stage: stage 3 (moderate) Qualified Code(s): N18.3 - Chronic kidney disease, stage 3 (moderate)
[2018-04-16] MEDS ORDERED: D5% in 0.45% NACL 1,000 ML IVC SCH (11:00)
[2018-04-16] MEDS: cefTRIAXone 1,000 MG in Water for inj. (sterile) 20 ML 10 ML IVP SCH (12:05)
[2018-04-16] MEDS ORDERED: *HR* Midazolam HCl 5 MG/5 ML VIAL IVP ONE ×2 (14:35→15:23)
[2018-04-16] MEDS ORDERED: *HR* FentaNYL (PF) 100 MCG/2 ML VIAL ONE (14:35)
--- NOTE | 2018-04-16 15:08 | General Surgery Consult Note ---
Date of Encounter: 04/16/18 Time of Encounter: 11:00 Assessment and Plan (1) Anemia Current Visit: Yes Status: Acute NPO Plan for EGD today with Dr. Hester- risks, benefits, alternatives and expected outcomes reviewed with the patient and she agrees to proceed. PPI therapy daily Supportive care Qualifiers: Anemia type: other cause Other causes of anemia: chronic disease, other Qualified Code(s): D63.8 - Anemia in other chronic diseases classified elsewhere History of Present Illness Consult date: 04/16/18 Reason for consult: other (anemia) Requesting physician: Tong Damon History of present illness: Ms. Hitchcock is a 72 year old female who presented to the ED with complaints of left arm numbness/tingling. She had a Hgb of 6.1 when checked on 04/10/18. She denies hematochezia or melena. She does admit to generalized weakness. Denies any shortness of breath or chest pains. Denies any abdominal pain. Denies any unintentional weight loss. She does have a hx of colon, kidney and skin cancer. We have been asked to see and evaluate the patient for upper endoscopy. The patient does take eliquis for a hx of atrial fibrillation. Past Med Surg Social Fam HX - Past Medical History Source: old records reviewed Medical history: arthritis, asthma, atrial fibrillation, cancer, CHF, COPD, coronary artery disease, diabetes, hyperlipidemia, hypertension, myocardial infarction Additional medical history: colon cancer. knee cancer. kidney cancer Psychiatric history: anxiety, depression - Past Surgical History Surgical History: angioplasty/stent, cancer surgery (Left nephrectomy, colon resection, skin cancer removal), cholecystectomy, colectomy (2016), coronary bypass (CABG), other Additional surgical history: Colon resection d/t cancer 2015; Left nephrectomy 2016; excision of LE mass 2016 - Social History Smoking Status: Never smoker Smokeless Tobacco Status: No Alcohol use: none Drug use: none - Family History Father Family Member Ethnicity: Non- Living Status: Age at : 72 Cause of : "Coronary Occlusion" Hx Family Cardiac Disorders: Yes (CHF, CAD, MD) Hx Family Respiratory Disorders: No Hx Family Cancer: No Hx Family GI Disorders: No Hx Family Endocrine Disorder: No Hx Family Neuromuscular Disorders: No Hx Family Neurologic Disorders: No Hx Family HEENT Disorders: No Hx Family Autoimmune Disorders: No Hx Family Medical Disorders: Yes Brother Family Member Ethnicity: Non- Living Status: Hx Family Cancer: Yes (Throat) Sister Family Member Ethnicity: Non- Living Status: Hx Family Respiratory Disorders: Yes (Emphysema) Hx Family Cancer: Yes (Breast) Mother Family Member Ethnicity: Non- Living Status: Hx Family Cardiac Disorders: No Hx Family Respiratory Disorders: Yes (asthma) Hx Family Cancer: Yes (Colon) Hx Family GI Disorders: No Hx Family Endocrine Disorder: No Hx Family Neuromuscular Disorders: No Hx Family Neurologic Disorders: No Hx Family HEENT Disorders: No Hx Family Autoimmune Disorders: No Medications and Allergies Aspirin [Adult Low Dose Aspirin EC] 81 mg PO DAILY 11/15/15 [History] Insulin ASPART [Novolog Flexpen] 15 unit SQ TIDWM MDD + SLIDING SCALE 11/15/15 [ History] Ferrous Sulfate 325 mg PO DAILY 11/29/16 [History] Hydralazine HCl 100 mg PO TID 11/29/16 [History] Delta-3/Dha/Epa/Fish Oil [Fish Oil 1,000 mg Softgel] 1 cap PO DAILY 11/29/16 [ History] cloNIDine HCl [Clonidine HCl] 0.3 mg PO TID #90 tab 03/05/17 [Rx] Albuterol Sulfate [Proair Hfa] 1 puff IH Q4H PRN #1 inh 05/11/17 [Rx] ALPRAZolam [Xanax 0.5 MG Tablet] 0.5 mg PO BID PRN 08/08/17 [History] Apixaban [Eliquis] 2.5 mg PO BID 08/08/17 [History] Pravastatin Sodium [Pravachol] 80 mg PO QPM 08/08/17 [History] Carvedilol [Coreg] 25 mg PO BIDWM #60 tablet 08/18/17 [Rx] Oxygen 2 l NS AD 09/22/17 [History] Furosemide [Lasix] 40 mg PO DAILY PRN 10/19/17 [History] Dulaglutide [Trulicity] 0.75 mg SQ TH 04/13/18 [History] Gabapentin [Neurontin] 100 mg PO BID 04/13/18 [History] Insulin Degludec [Tresiba Flextouch U-200] 62 unit SQ HS 04/13/18 [History] dilTIAZem HCl [Diltiazem 24Hr ER] 120 mg PO DAILY 04/13/18 [History] Cephalexin [Keflex] 500 mg PO BID #6 capsule 04/14/18 [Rx] 3 Allergy/AdvReac Type Severity Reaction Status Date / Time Sulfa (Sulfonamide Allergy Severe Swelling Verified 04/10/18 15:11 Antibiotics) of Lip/Tongue/Throat Review of Systems All systems PM: reviewed and no additional remarkable complaints except as stated (in the HPI) All systems PM: The remainder of the systems were reviewed and are negative General Surgery Exam Initial Vital Signs Temp Pulse Resp BP Pulse Ox 99.0 F 86 12 167/82 95 04/13/18 07:44 04/13/18 07:44 04/13/18 07:44 04/13/18 07:44 04/13/18 07:44 - General physical appearance well developed, well nourished, chronically ill, obese - Eyes PERRL, normal ocular movement - ENT normal mucosa, atraumatic, normocephalic - Neck trachea midline - Respiratory normal respiratory effort, clear to auscultation, other (diminished bibasilar bases) - Cardiovascular Cardiovascular exam: Present: irregular rhythm - Abdomen Abdomen general surgery: Present: bowel sounds present, soft, non tender - Integumentary Integumentary general surgery: Present: warm and dry - Neurologic Present: CN 2-12 grossly intact - Psychiatric Psychiatric general surgery: Present: A&Ox3 Exam Initial Vital Signs Temp Pulse Resp BP Pulse Ox 99.0 F 86 12 167/82 95 04/13/18 07:44 04/13/18 07:44 04/13/18 07:44 04/13/18 07:44 04/13/18 07:44 Results - Labs 04/16/18 03:10 04/16/18 03:10 Abnormal lab results WBC 15.0 K/mcL (4.3-11.1) H 04/16/18 03:10 RBC 2.62 M/mcL (3.82-4.97) L 04/16/18 03:10 Hgb 7.3 g/dL (11.5-15.4) L 04/16/18 03:10 Hct 24.1 % (35.3-44.9) L 04/16/18 03:10 MCH 27.9 pg (28.0-33.3) L 04/16/18 03:10 MCHC 30.3 g/dL (31.6-35.5) L 04/16/18 03:10 Neutrophils # 10.5 K/mcL (1.6-8.9) H 04/15/18 05:58 Monocytes # 2.1 K/mcL (0.0-1.3) H 04/15/18 05:58 PT 14.2 Seconds (9.4-12.1) H 04/13/18 08:10 Sodium 135 mEq/L (136-145) L 04/16/18 03:10 Chloride 109 mEq/L (98-107) H 04/16/18 03:10 Carbon Dioxide 21 mEq/L (23-29) L 04/16/18 03:10 BUN 45 mg/dL (8-23) H 04/16/18 03:10 Creatinine 2.09 mg/dL (0.60-1.20) H 04/16/18 03:10 Est GFR ( Amer) 28 (> 60) L 04/16/18 03:10 Est GFR (Non-Af Amer) 23 (> 60) L 04/16/18 03:10 POC Glucose 165 mg/dL (70-99) H 04/16/18 10:19 Calcium 8.4 mg/dL (8.6-10.3) L 04/16/18 03:10 Serum Total Protein 6.1 g/dL (6.4-8.9) L 04/15/18 05:58 Albumin 3.0 g/dL (3.5-5.7) L 04/15/18 05:58 Albumin/Globulin Ratio 1.0 (1.1-2.2) L 04/15/18 05:58 HDL Cholesterol 31 mg/dL (40-59) L 04/14/18 04:43 Urine Protein 100 mg/dL (Neg-Trace) H 04/13/18 10:47 Ur Leukocyte Esterase Large (Negative) H 04/13/18 10:47 Urine Microscopic WBC TNTC per hpf (0-3) H 04/13/18 10:47 Urine Bacteria Many per hpf (None-Few) H 04/13/18 10:47 Ur Culture Indicated? YES (NO) A 04/13/18 10:47 Nasal Screen MRSA (PCR) Positive (Negative) A 04/16/18 11:05 Diabetes panel 04/15/18 04/16/18 Range/Units 15:25 03:10 Sodium 132 L 135 L (136-145) mEq/L Potassium 5.1 4.7 (3.5-5.1) mEq/L Chloride 104 109 H (98-107) mEq/L Carbon Dioxide 22 L 21 L (23-29) mEq/L BUN 50 H 45 H (8-23) mg/dL Creatinine 2.34 H 2.09 H (0.60-1.20) mg/dL Glucose 188 H 85 (70-105) mg/dL Calcium 8.1 L 8.4 L (8.6-10.3) mg/dL Calcium panel 04/15/18 04/16/18 Range/Units 15:25 03:10 Calcium 8.1 L 8.4 L (8.6-10.3) mg/dL Pituitary panel 04/15/18 04/16/18 Range/Units 15:25 03:10 Sodium 132 L 135 L (136-145) mEq/L Potassium 5.1 4.7 (3.5-5.1) mEq/L Chloride 104 109 H (98-107) mEq/L Carbon Dioxide 22 L 21 L (23-29) mEq/L BUN 50 H 45 H (8-23) mg/dL Creatinine 2.34 H 2.09 H (0.60-1.20) mg/dL Glucose 188 H 85 (70-105) mg/dL Calcium 8.1 L 8.4 L (8.6-10.3) mg/dL Adrenal panel 04/15/18 04/16/18 Range/Units 15:25 03:10 Sodium 132 L 135 L (136-145) mEq/L Potassium 5.1 4.7 (3.5-5.1) mEq/L Chloride 104 109 H (98-107) mEq/L Carbon Dioxide 22 L 21 L (23-29) mEq/L BUN 50 H 45 H (8-23) mg/dL Creatinine 2.34 H 2.09 H (0.60-1.20) mg/dL Glucose 188 H 85 (70-105) mg/dL Calcium 8.1 L 8.4 L (8.6-10.3) mg/dL All other labs normal. - Imaging Additional studies: Chest X-Ray 04/13/18 08:03 IMPRESSION: Cardiomegaly with pulmonary vascular prominence, but no interstitial or alveolar edema. D/ / 04/13/2018 09:05:48 Kirk Tyler MD / [facility] Interpreting Provider: Kirk Tyler MD Head CT 04/13/18 08:05 IMPRESSION: Sequela of chronic small vessel ischemic change. No acute intracranial abnormality is seen. D/ / 04/13/2018 09:34:33 Kirk Tyler MD / [facility] Interpreting Provider: Kirk Tyler MD Brain MRI 04/13/18 11:28 IMPRESSION: No acute intracranial abnormality. Moderate cerebral white matter disease, most likely chronic small vessel ischemic change. D/ / 04/13/2018 15:55:44 [email or web address] Inter[facility] Provider: Jeison Landon MD Echocardiogram Limited Views 04/13/18 11:32 Impressions: LVEF 55%. Normal LV chamber size, wall thickness and function. Atypical septal motion noted. No evidence of a PFO with agitated saline contrast. Left Ventricular Wall Motion: Rest Echo Findings All wall segments showed normal motion. Findings: Study Quality * Technically adequate exam. ECG Findings * Atrial fibrillation, bundle branch block. Left Ventricle * LVEF 55%. * Normal LV chamber size, wall thickness and function. * Atypical septal motion noted. Interatrial Septum * No evidence of PFO with agitated saline contrast. Aorta * Normally sized aortic root. Pericardium * The pericardium appears normal. Consult Discharge Plan - Plan Instructions: Urinary Tract Infection in Women (DC) Referrals: Geremias Ryan DO [Primary Care Provider] - (office will call patient at home with appointment date and time ) Prescriptions: Cephalexin [Keflex] 500 mg PO BID #6 capsule - Attending Attestation For this encounter, I have reviewed the REAL ESTATE PROFESSOR or PA documentation, treatment plan, and medical decision making; and I have had face to face time with this patient.
--- NOTE | 2018-04-16 15:22 | Pre-Sedation Evaluation ---
Pre-sedation evaluation - Pre-sedation checklist Date of procedure: 04/16/18 Procedure: colonoscopy Recent Vitals: Last Vital Signs Temp 97.7 F 04/16/18 15:14 Pulse 101 04/16/18 15:20 Resp 17 04/16/18 15:20 BP 180/77 04/16/18 15:20 Pulse Ox 95 04/16/18 15:20 H&P (including ROS) documented in medical record: No Previous reaction to sedatives/anesthetics: No Dietary Status: NPO after Midnight Airway Assessment: Patient can open mouth completely, TMJ function normal Dentition: No loose teeth or bridges Possible difficult airway: No ASA Classification *see protocol: CLASS II-Mild systemic disease Cardiac Registry (Cardio Only) - Functional Capacity - Clincal Frailty Scale
[2018-04-16] MEDS ORDERED: Tetracaine/Benzocaine/Butamben 200MG/SPRAY (100SPY/BOT) MM ONE (15:23)
[2018-04-16] MEDS ORDERED: *HR* FentaNYL (PF) 100 MCG/2 ML VIAL IVP ONE (15:23)
[2018-04-16] MEDS ORDERED: Pantoprazole 40 MG VIAL IVP SCH (15:30)
[2018-04-16 15:55] VITALS: BP 144/68
== END 2018-04-16 17:53 | disposition home or self-care (01) ==
LOC: 2NENU 07:39 → EMEROOARM 07:39 → SUATTDRO 11:04 → 2NENU 11:53
PROVIDERS: ADMIT Internal Medicine; ATTEND Internal Medicine

== ENCOUNTER 2018-04-26 15:47 | Inpatient (IN) ==
[2018-04-26] MEDS ORDERED: 0.9 % Sodium Chloride 1,000 ML IVC ONE (15:58)
--- NOTE | 2018-04-26 16:14 | Emergency Department Note ---
Disposition Clinical Impression: Altered mental status Qualifiers: Altered mental status type: unspecified Qualified Code(s): R41.82 - Altered mental status, unspecified Sepsis Qualifiers: Sepsis type: sepsis due to unspecified organism Qualified Code(s): A41.9 - Sepsis, unspecified organism Pneumonia Qualifiers: Pneumonia type: due to unspecified organism Laterality: unspecified laterality Lung location: unspecified part of lung Qualified Code(s): J18.9 - Pneumonia, unspecified organism Disposition: Admitted As Inpatient Condition: Fair General Adult HPI - General Chief complaint: ED Fever Stated complaint: R/O Sepsis, fever Time Seen by Provider: 04/26/18 15:58 Source: patient Mode of arrival: private vehicle Limitations: altered mental status Nursing Notes Reviewed: Yes Vital Signs Reviewed: Yes - History of Present Illness HPI Narrative: 72-year-old female history of atrial fibrillation on anticoagulation, CAD status post CABG who presents to the ER due to concern for infection. The patient is alert to self. She reports she started getting sick within the last 24 hours. She is a poor historian but does answer appropriately intermittently. She denies any recent illnesses. No fevers, chest pain, shortness of breath, cough, nausea, vomiting or abdominal pain. She reports pain in her legs been going on. She was noted to be febrile, tachycardic and tachypneic upon arrival. She was 89% on room air. She states that she wears oxygen at night. No other complaints. Pt Subjective Complaint: Concern for infection Onset (ago): day(s) Pain Scale: 0 Improves with: nothing Worsens with: nothing Associated symptoms: Reports: denies other symptoms Treatments Prior to Arrival: none - Related Data Home Medications Medication Instructions Recorded Confirmed Aspirin [Adult Low Dose Aspirin EC] 81 mg PO DAILY 11/15/15 04/26/18 Insulin ASPART [Novolog Flexpen] 15 unit SQ TIDWM MDD + SLIDING 11/15/15 SCALE Ferrous Sulfate 325 mg PO DAILY 11/29/16 04/26/18 Hydralazine HCl 100 mg PO TID 11/29/16 04/26/18 [place]-3/Dha/Epa/Fish Oil [Fish Oil 1 cap PO DAILY 11/29/16 04/26/18 1,000 mg Softgel] ALPRAZolam [Xanax 0.5 MG Tablet] 0.5 mg PO BID PRN 08/08/17 04/26/18 Apixaban [Eliquis] 2.5 mg PO BID 08/08/17 04/26/18 Pravastatin Sodium [Pravachol] 80 mg PO QPM 08/08/17 04/26/18 Oxygen 2 l NS AD 09/22/17 04/26/18 Furosemide [Lasix] 40 mg PO DAILY PRN 10/19/17 04/26/18 Dulaglutide [Trulicity] 0.75 mg SQ TH 04/13/18 04/26/18 Gabapentin [Neurontin] 100 mg PO BID 04/13/18 04/26/18 Insulin Degludec [Tresiba 62 unit SQ HS 04/13/18 04/26/18 Flextouch U-200] dilTIAZem HCl [Diltiazem 24Hr ER] 120 mg PO DAILY 04/13/18 04/26/18 Previous Rx's Medication Instructions Recorded cloNIDine HCl [Clonidine HCl] 0.3 mg PO TID #90 tab 03/05/17 Albuterol Sulfate [Proair Hfa] 1 puff IH Q4H PRN #1 inh 05/11/17 Carvedilol [Coreg] 25 mg PO BIDWM #60 tablet 08/18/17 Mupirocin Calcium [Bactroban Nasal] 1 gm NS BID 5 Days #1 oint...g. 04/16/18 Allergies Allergy/AdvReac Type Severity Reaction Status Date / Time Sulfa (Sulfonamide Allergy Severe Swelling Verified 04/10/18 15:11 Antibiotics) of Lip/Tongue/Throat All systems ED: reviewed and negative except as stated. Constitutional: Denies: fever Cardiovascular: Denies: chest pain Respiratory: Denies: cough, dyspnea Gastrointestinal: Denies: abdominal pain, nausea, vomiting Past Medical History - Past Medical History Attestation: Yes The following information was validated with the patient. Source: patient, old records reviewed Medical history: Reports: arthritis, asthma, atrial fibrillation, cancer, CHF, COPD, coronary artery disease, diabetes, hyperlipidemia, hypertension, myocardial infarction Surgical history: Reports: angioplasty/stent, cholecystectomy, colectomy, coronary bypass (CABG), other Psychiatric history: Reports: anxiety, depression MULTILITH OPERATOR history: Reports: no MULTILITH OPERATOR history - Social History Smoking Status: Never smoker Smokeless Tobacco Status: No Alcohol use: Reports: none Drug use: Reports: none Physical Exam - General Limitations: altered mental status General appearance: lethargic - Head Head exam: atraumatic, normocephalic, normal inspection - Eye Eye exam: Present: normal appearance - ENT ENT exam: normal exam - Neck Neck exam: Present: normal inspection - Chest Chest inspection: Present: normal inspection, symmetric chest wall rise - Respiratory Respiratory exam: Present: other (Diminished breath sounds bilaterally) - Cardiovascular Cardiovascular exam: Present: normal rhythm, tachycardia, normal heart sounds - Abdominal Exam Abdominal exam: Present: soft, Non-Tender. Absent: tenderness, distention, guarding, rigidity - Extremities Exam Extremities exam: Present: normal inspection, full ROM - Expanded Upper Extremity Exam Shoulder exam: Present: normal inspection, full ROM Arm exam: Present: normal inspection, full ROM Elbow exam: Present: normal inspection, full ROM Forearm/Wrist exam: Present: normal inspection, full ROM Hand exam: Present: normal inspection, full ROM - Expanded Lower Extremity Exam Hip/Pelvis exam: Present: normal inspection, full ROM Upper leg exam: Present: normal inspection, full ROM Knee exam: Present: normal inspection, full ROM Lower leg exam: Present: normal inspection, full ROM Ankle exam: Present: normal inspection, full ROM Foot/toe exam: Present: normal inspection, full ROM - Neurological Exam Neurological exam: Present: alert, other - Expanded Neurological Exam Patient oriented to: Present: person, place. Absent: time Coma Scale Eye Opening: Spontaneous Coma Scale Motor Response: Obeys Commands Coma Scale Verbal Response: Confused Coma Scale Total: 14 - Skin Skin exam: Present: warm, dry Course Course Narrative: Patient seen and examined. Vital signs reviewed. She is noted to be febrile, tachycardic and tachypnea. AMI percent on room air. Nasal cannula applied. Plan for sepsis evaluation with labs, EKG, chest x-ray, urinalysis. IV fluids for her tachycardia. Tylenol for fever. Vital Signs Temperature 101.3 F H 04/26/18 15:52 Pulse Rate 121 04/26/18 15:52 Respiratory Rate 24 04/26/18 15:52 Blood Pressure 175/95 04/26/18 15:52 O2 Sat by Pulse Oximetry 92 04/26/18 15:52 Temperature 100.8 F H 04/26/18 18:23 Pulse Rate 70 04/26/18 18:23 Respiratory Rate 15 04/26/18 18:23 Blood Pressure 142/55 04/26/18 18:23 O2 Sat by Pulse Oximetry 100 04/26/18 18:23 Oxygen Delivery Oxygen Delivery Nasal Cannula Medical Decision Making - MDM Narrative Medical decision making narrative: 72-year-old female presenting with 1 day of illness. Tachycardic, tachypneic and febrile on arrival. She is alert and oriented 1. Blood pressure is stable here. EKG demonstrates atrial flutter for which she is anticoagulated. Chest x-ray read as edema however given her clinical picture concern for multifocal pneumonia. Leukocytosis of 20. Lactate normal. Patient was recently admitted last month. Patient given vancomycin, cefepime and Levaquin. Tylenol for fever as well as IV fluids. Admitted to the hospitalist service. - Lab Data Lab results reviewed: Yes I reviewed the patient's lab results. Result diagrams: 04/26/18 16:50 04/26/18 16:12 Lab Results 04/26/18 04/26/18 04/26/18 Range/Units 16:12 16:12 16:12 WBC (4.3-11.1) K/mcL RBC (3.82-4.97) M/mcL Hgb (11.5-15.4) g/dL Hct (35.3-44.9) % MCV (83.0-100.0) fL MCH (28.0-33.3) pg MCHC (31.6-35.5) g/dL RDW (11.5-14.5) % Plt Count (140-400) K/mcL MPV (9.4-12.4) fL Immature Gran % (0-4) % Seg Neutrophils % % Lymphocytes % % Monocytes % % Eosinophils % % Basophils % % Neutrophils # (1.6-8.9) K/mcL Lymphocytes # (0.6-4.6) K/mcL Monocytes # (0.0-1.3) K/mcL Eosinophils # (0.0-0.6) K/mcL Basophils # (0.0-0.2) K/mcL PT 15.1 H (9.4-12.1) Seconds INR 1.3 APTT 24.3 L (26.0-36.0) Seconds Sodium 131 L (136-145) mEq/L Potassium 4.2 (3.5-5.1) mEq/L Chloride 96 L (98-107) mEq/L Carbon Dioxide 26 (23-29) mEq/L BUN 56 H (8-23) mg/dL Creatinine 2.03 H (0.60-1.20) mg/dL Est GFR ( Amer) 29 L (> 60) Est GFR (Non-Af Amer) 24 L (> 60) BUN/Creatinine Ratio 28 H (6-26) Glucose 248 H (70-105) mg/dL POC Glucose (70-99) mg/dL Calculated Osmolality 296 (280-300) Lactic Acid 1.3 (0.5-2.2) mmol/L Calcium 9.2 (8.6-10.3) mg/dL Phosphorus 3.3 (2.7-4.5) mg/dL Magnesium 1.7 (1.6-2.6) mg/dL Total Bilirubin 0.4 (0.3-1.0) mg/dL Direct Bilirubin 0.1 (0.0-0.2) mg/dL Indirect Bilirubin 0.3 (0.0-1.2) mg/dL AST 14 (13-39) Units/L ALT 18 (7-52) Units/L Alkaline Phosphatase 155 H (34-104) Units/L Troponin I 0.03 (< 0.04) ng/mL B-Natriuretic Peptide (Less than 100) pg/mL Serum Total Protein 7.3 (6.4-8.9) g/dL Albumin 3.5 (3.5-5.7) g/dL Globulin 3.8 H (2.4-3.5) g/dL Albumin/Globulin Ratio 0.9 L (1.1-2.2) Lipase 36 (11-82) Units/L Urine Color (Yellow) Urine Clarity (Clear) Urine pH (5.0-8.0) pH Units Ur Specific [place] (1.010-1.025) Urine Protein (Neg-Trace) mg/dL Urine Glucose (UA) (Normal) mg/dL Urine Ketones (Negative) mg/dL Urine Blood (Negative) Urine Nitrite (Negative) Urine Bilirubin (Negative) Urine Urobilinogen (Normal) mg/dL Ur Leukocyte Esterase (Negative) Ur Culture Indicated? (NO) Specimen Rejected 0804/26/18 04/26/18 Range/Units 16:12 16:12 16:50 WBC 20.3 H (4.3-11.1) K/mcL RBC 2.71 L (3.82-4.97) M/mcL Hgb 7.5 L (11.5-15.4) g/dL Hct 23.7 L (35.3-44.9) % MCV 87.5 D (83.0-100.0) fL MCH 27.7 L (28.0-33.3) pg MCHC 31.6 (31.6-35.5) g/dL RDW 14.6 H (11.5-14.5) % Plt Count 372 (140-400) K/mcL MPV 10.7 (9.4-12.4) fL Immature Gran % 1.1 (0-4) % Seg Neutrophils % 85.4 % Lymphocytes % 3.0 % Monocytes % 9.3 % Eosinophils % 0.9 % Basophils % 0.3 % Neutrophils # 17.3 H (1.6-8.9) K/mcL Lymphocytes # 0.6 (0.6-4.6) K/mcL Monocytes # 1.9 H (0.0-1.3) K/mcL Eosinophils # 0.2 (0.0-0.6) K/mcL Basophils # 0.1 (0.0-0.2) K/mcL PT (9.4-12.1) Seconds INR APTT (26.0-36.0) Seconds Sodium (136-145) mEq/L Potassium (3.5-5.1) mEq/L Chloride (98-107) mEq/L Carbon Dioxide (23-29) mEq/L BUN (8-23) mg/dL Creatinine (0.60-1.20) mg/dL Est GFR ( Amer) (> 60) Est GFR (Non-Af Amer) (> 60) BUN/Creatinine Ratio (6-26) Glucose (70-105) mg/dL POC Glucose (70-99) mg/dL Calculated Osmolality (280-300) Lactic Acid (0.5-2.2) mmol/L Calcium (8.6-10.3) mg/dL Phosphorus (2.7-4.5) mg/dL Magnesium (1.6-2.6) mg/dL Total Bilirubin (0.3-1.0) mg/dL Direct Bilirubin (0.0-0.2) mg/dL Indirect Bilirubin (0.0-1.2) mg/dL AST (13-39) Units/L ALT (7-52) Units/L Alkaline Phosphatase (34-104) Units/L Troponin I (< 0.04) ng/mL B-Natriuretic Peptide 468 H (Less than 100) pg/mL Serum Total Protein (6.4-8.9) g/dL Albumin (3.5-5.7) g/dL Globulin (2.4-3.5) g/dL Albumin/Globulin Ratio (1.1-2.2) Lipase (11-82) Units/L Urine Color (Yellow) Urine Clarity (Clear) Urine pH (5.0-8.0) pH Units Ur Specific [place] (1.010-1.025) Urine Protein (Neg-Trace) mg/dL Urine Glucose (UA) (Normal) mg/dL Urine Ketones (Negative) mg/dL Urine Blood (Negative) Urine Nitrite (Negative) Urine Bilirubin (Negative) Urine Urobilinogen (Normal) mg/dL Ur Leukocyte Esterase (Negative) Ur Culture Indicated? (NO) Specimen Rejected MCV Delta 18 04/26/18 Range/Units 16:58 19:54 WBC (4.3-11.1) K/mcL RBC (3.82-4.97) M/mcL Hgb (11.5-15.4) g/dL Hct (35.3-44.9) % MCV (83.0-100.0) fL MCH (28.0-33.3) pg MCHC (31.6-35.5) g/dL RDW (11.5-14.5) % Plt Count (140-400) K/mcL MPV (9.4-12.4) fL Immature Gran % (0-4) % Seg Neutrophils % % Lymphocytes % % Monocytes % % Eosinophils % % Basophils % % Neutrophils # (1.6-8.9) K/mcL Lymphocytes # (0.6-4.6) K/mcL Monocytes # (0.0-1.3) K/mcL Eosinophils # (0.0-0.6) K/mcL Basophils # (0.0-0.2) K/mcL PT (9.4-12.1) Seconds INR APTT (26.0-36.0) Seconds Sodium (136-145) mEq/L Potassium (3.5-5.1) mEq/L Chloride (98-107) mEq/L Carbon Dioxide (23-29) mEq/L BUN (8-23) mg/dL Creatinine (0.60-1.20) mg/dL Est GFR ( Amer) (> 60) Est GFR (Non-Af Amer) (> 60) BUN/Creatinine Ratio (6-26) Glucose (70-105) mg/dL POC Glucose 197 H (70-99) mg/dL Calculated Osmolality (280-300) Lactic Acid (0.5-2.2) mmol/L Calcium (8.6-10.3) mg/dL Phosphorus (2.7-4.5) mg/dL Magnesium (1.6-2.6) mg/dL Total Bilirubin (0.3-1.0) mg/dL Direct Bilirubin (0.0-0.2) mg/dL Indirect Bilirubin (0.0-1.2) mg/dL AST (13-39) Units/L ALT (7-52) Units/L Alkaline Phosphatase (34-104) Units/L Troponin I (< 0.04) ng/mL B-Natriuretic Peptide (Less than 100) pg/mL Serum Total Protein (6.4-8.9) g/dL Albumin (3.5-5.7) g/dL Globulin (2.4-3.5) g/dL Albumin/Globulin Ratio (1.1-2.2) Lipase (11-82) Units/L Urine Color Yellow (Yellow) Urine Clarity Clear (Clear) Urine pH 5.0 (5.0-8.0) pH Units Ur Specific [place] 1.017 (1.010-1.025) Urine Protein Negative (Neg-Trace) mg/dL Urine Glucose (UA) Normal (Normal) mg/dL Urine Ketones Negative (Negative) mg/dL Urine Blood Negative (Negative) Urine Nitrite Negative (Negative) Urine Bilirubin Negative (Negative) Urine Urobilinogen Normal (Normal) mg/dL Ur Leukocyte Esterase Negative (Negative) Ur Culture Indicated? NO (NO) Specimen Rejected - Radiology Data Radiology results reviewed: Yes I reviewed the patient's radiology results. Chest X-Ray 04/26/18 15:58 IMPRESSION: Stable cardiomegaly with ill-defined perihilar and bibasilar opacities, favored to represent edema. D/ / Chan Mccrary MD / Chan Mccrary MD Interpreting Provider: Chan Mccrary MD Head CT 04/26/18 16:04 IMPRESSION: Stable CT brain with no acute intracranial abnormality and redemonstration of chronic ischemic/senescent changes as described. D/ / Stan Guerra MD / Stan Guerra MD Interpreting Provider: Stan Guerra MD - EKG Data EKG #1 EKG attestation: Yes I reviewed and interpreted this EKG. EKG results narrative: EKG demonstrates atrial flutter with a rate of 90 bpm. Normal axis. Normal intervals. Normal R-wave progression. No gross ST elevations or depressions. No acute ischemic findings. S.B.A.R. - S.B.A.RManfred Situation: Demographics, MOA Background: Presenting Complaint, Relevant PMH, Meds, & Allergies Assessment: Vital Signs, Course and respsone to treatment, Exam Concerns, Patient/Family Expectation, Pertinant Lab Results Recommendation: Barrier(s) to disposition, Recommendation based on pending studies, treatments, or consults S.B.A.RManfred Report Given to: Dr. Tianna Delatorre Repor Time: 17:58 Attestation Statement - Attestation Attestation: I, Milton Victor, examined this patient and my medical decision-making was reviewed with the THERMOSPRAY OPERATOR/PA/Advanced Practice Nurse/Resident Physician. I agree with the documented findings, disposition and treatment plan as described except to the extent set forth below. 72-year-old female presents emergency Department with concerns of fever, dizziness and weakness. Family states symptoms have been progressively worse over the past 24-48 hours. Patient appears fatigued on the initial exam. She answers questions appropriately however she states that she "just does not feel well". She denies headache or neck pain during my evaluation. She is moving her head side to side without difficulty. She denies chest pain or shortness of breath. Patient denied abdominal pain, diarrhea, melena, hematochezia, vaginal bleeding, vaginal discharge. Urinalysis was negative for urinary tract infection. Chest x-ray showed possible edema versus infiltrate. Given the patient's fever and leukocytosis we will treat the patient as possible pneumonia. Patient started on antibiotics in the emergency department. Patient will be admitted to the hospital for further care and evaluation.
[2018-04-26 16:36] LABS: INR 1.3; Prothrombin Time 15.1 Seconds (9.4-12.1)
[2018-04-26 16:38] LABS: Activated Partial Thrombo Time 24.3 Seconds (26.0-36.0)
[2018-04-26 16:51] LABS: Albumin 3.5 g/dL (3.5-5.7); Albumin/Globulin Ratio 0.9 (1.1-2.2); Bilirubin,Direct 0.1 mg/dL (0.0-0.2); Bilirubin,Indirect 0.3 mg/dL (0.0-1.2); Bilirubin,Total 0.4 mg/dL (0.3-1.0); Calcium 9.2 mg/dL (8.6-10.3); Globulin 3.8 g/dL (2.4-3.5); Magnesium 1.7 mg/dL (1.6-2.6); Phosphorous 3.3 mg/dL (2.7-4.5); Potassium 4.2 mEq/L (3.5-5.1); Total Protein 7.3 g/dL (6.4-8.9); Troponin I 0.03 ng/mL (< 0.04)
[2018-04-26 17:04] LABS: Basophils # 0.1 K/mcL (0.0-0.2); Basophils % 0.3 %; Eosinophils # 0.2 K/mcL (0.0-0.6); Eosinophils % 0.9 %; Hematocrit 23.7 % (35.3-44.9); Hemoglobin 7.5 g/dL (11.5-15.4); Immature Granulocytes % 1.1 % (0-4); Lymphocytes # 0.6 K/mcL (0.6-4.6); Mean Corpuscular HGB Conc 31.6 g/dL (31.6-35.5); Mean Corpuscular Hemoglobin 27.7 pg (28.0-33.3); Mean Corpuscular Volume 87.5 fL (83.0-100.0); Mean Platelet Volume 10.7 fL (9.4-12.4); Monocytes # 1.9 K/mcL (0.0-1.3); Monocytes % 9.3 %; Neutrophils # 17.3 K/mcL (1.6-8.9); Platelet Count 372 K/mcL (140-400); Red Blood Count 2.71 M/mcL (3.82-4.97); Red Cell Distribution Width 14.6 % (11.5-14.5); Segmented Neutrophils % 85.4 %
[2018-04-26 17:09] LABS: Bilirubin,Urine Negative (Negative); Blood,Urine Negative (Negative); Clarity,Urine Clear (Clear); Color,Urine Yellow (Yellow); Glucose,Urine (UA) Normal (Normal); Ketones,Urine Negative (Negative); Leukocyte Esterase,Urine Negative (Negative); Nitrite,Urine Negative (Negative); Protein,Urine Negative (Neg-Trace); Specific Gravity,Urine 1.017 (1.010-1.025); Urobilinogen,Urine Normal (Normal)
[2018-04-26] MEDS ORDERED: Levofloxacin 750 MG/150 ML 750 MG/150 ML BAG IVPB ONE (17:09)
[2018-04-26] MEDS ORDERED: Naloxone 0.4 MG/ML INJ IVP PRN (17:53)
[2018-04-26] MEDS ORDERED: VANCOMYCIN IVPB SCH (18:00)
[2018-04-26] MEDS ORDERED: SODIUM CHLORIDE 0.9% IVPB SCH (18:00)
[2018-04-26] MEDS ORDERED: *HR* Dextrose 50 % in Water (Syg) 50 ML SYRINGE IVP PRN (18:02)
[2018-04-26] MEDS ORDERED: D5% in Water 1,000 ML IVC PRN (18:02)
[2018-04-26] MEDS ORDERED: Dextrose Gel 15 GM/37.5 ML TUBE PO PRN ×2 (18:02)
--- NOTE | 2018-04-26 18:44 | Internal Med History&Physical ---
Date of Encounter: 04/26/18 Time of Encounter: 06:30 Internal Medicine - H&P: HPI Chief complaint: Progressive weakness, lethargy and abdominal pain History of present illness: Ms. Hitchcock is a 72 year old female with pmh of CHF, COPD, diabetes, hypertension, colon and kidney cancer presenting to the hospital today with complaints of progressive weakness, lethargy and abdominal pain. Patient is not able to provide a lot of history and just moans a lot for the most part when asked questions. History was mostly provided by daughter. She notes that patient was recently in the hospital for anemia to rule out GI bleed and had an endoscopy done which did not show an active bleed or a source for a GI bleed. She also completed a course of ceftriaxone for UTI on her last admission Daughter notes that since being discharged, she has been having progressive weakness, and hasn't "just been herself." In the last 24hrs , she has been having worsening weakness and complains of freezing. She also complains of abdominal pain that feels like a dull diffuse ache on the left side of her belly. Unable to provide further information. Denies any nausea or vomiting. In the Er, she was hypoxic at 89%, she was noted to be febrile and tachycardic with a leukocytosis of 20. She was started on vanc , cefepime and levaquin and is being admitted for further management Past Med Surg Social Fam HX - Past Medical History Medical history: arthritis, asthma, atrial fibrillation, cancer, CHF, COPD, coronary artery disease, diabetes, hyperlipidemia, hypertension, myocardial infarction Additional medical history: colon cancer. knee cancer. kidney cancer Psychiatric history: anxiety, depression - Past Surgical History Surgical History: angioplasty/stent, cholecystectomy, colectomy, coronary bypass (CABG), other Additional surgical history: Colon resection d/t cancer; nephrectomy - Social History Smoking Status: Never smoker Smokeless Tobacco Status: No Alcohol use: none Drug use: none - Family History Father Family Member Ethnicity: Non- Living Status: Hx Family Cardiac Disorders: Yes (CHF, CAD, LA) Hx Family Respiratory Disorders: No Hx Family Cancer: No Hx Family GI Disorders: No Hx Family Endocrine Disorder: No Hx Family Neuromuscular Disorders: No Hx Family Neurologic Disorders: No Hx Family HEENT Disorders: No Hx Family Autoimmune Disorders: No Brother Family Member Ethnicity: Non- Living Status: Hx Family Cancer: Yes (Throat) Sister Family Member Ethnicity: Non- Living Status: Hx Family Respiratory Disorders: Yes (Emphysema) Hx Family Cancer: Yes (Breast) Mother Family Member Ethnicity: Non- Living Status: Hx Family Cardiac Disorders: No Hx Family Respiratory Disorders: Yes (asthma) Hx Family Cancer: Yes (Colon) Hx Family GI Disorders: No Hx Family Endocrine Disorder: No Hx Family Neuromuscular Disorders: No Hx Family Neurologic Disorders: No Hx Family HEENT Disorders: No Hx Family Autoimmune Disorders: No Internal Medicine - H&P: Meds Aspirin [Adult Low Dose Aspirin EC] 81 mg PO DAILY 11/15/15 [History] Insulin ASPART [Novolog Flexpen] 15 unit SQ TIDWM MDD + SLIDING SCALE 11/15/15 [ History] Ferrous Sulfate 325 mg PO DAILY 11/29/16 [History] Hydralazine HCl 100 mg PO TID 11/29/16 [History] [place]-3/Dha/Epa/Fish Oil [Fish Oil 1,000 mg Softgel] 1 cap PO DAILY 11/29/16 [ History] cloNIDine HCl [Clonidine HCl] 0.3 mg PO TID #90 tab 03/05/17 [Rx] Albuterol Sulfate [Proair Hfa] 1 puff IH Q4H PRN #1 inh 05/11/17 [Rx] ALPRAZolam [Xanax 0.5 MG Tablet] 0.5 mg PO BID PRN 08/08/17 [History] Apixaban [Eliquis] 2.5 mg PO BID 08/08/17 [History] Pravastatin Sodium [Pravachol] 80 mg PO QPM 08/08/17 [History] Carvedilol [Coreg] 25 mg PO BIDWM #60 tablet 08/18/17 [Rx] Oxygen 2 l NS AD 09/22/17 [History] Furosemide [Lasix] 40 mg PO DAILY PRN 10/19/17 [History] Dulaglutide [Trulicity] 0.75 mg SQ TH 04/13/18 [History] Gabapentin [Neurontin] 100 mg PO BID 04/13/18 [History] Insulin Degludec [Tresiba Flextouch U-200] 62 unit SQ HS 04/13/18 [History] dilTIAZem HCl [Diltiazem 24Hr ER] 120 mg PO DAILY 04/13/18 [History] Mupirocin Calcium [Bactroban Nasal] 1 gm NS BID 5 Days #1 oint...g. 04/16/18 [Rx ] 3 Allergy/AdvReac Type Severity Reaction Status Date / Time Sulfa (Sulfonamide Allergy Severe Swelling Verified 04/10/18 15:11 Antibiotics) of Lip/Tongue/Throat All Systems PM: A 10-system review of systems was performed and is negative for pertinent findings except as documented above in the HPI. - Constitutional Constitutional: as per HPI, chills, fever(s) - EENT Eyes: no change in vision, no discharge, no pain, no photophobia Ears: no ear discharge, no ear pain, no tinnitus Nose, mouth and throat: no dysphagia, no nasal discharge, no neck pain, no sore throat - Cardiovascular Cardiovascular ROS IM: no chest pain, no diaphoresis, no dyspnea, no lightheadedness, no palpitations, no syncope - Respiratory Respiratory: no cough, no dyspnea, no wheezing, no excessive phlegm production - Gastrointestinal Gastrointestinal: abdominal pain, no diarrhea, no hematemesis, no hematochezia, no melena, no nausea, no vomiting - Genitourinary Genitourinary: no change in urinary stream, no dysuria, no flank pain, no hematuria - Musculoskeletal Musculoskeletal ROS IM: no numbness, no tingling - Integumentary Integumentary IM: no rash, no unusual bruising - Neurological Neurological ROS: weakness, no confusion, no convulsions, no focal weakness, no numbness, no tingling, no tremor(s) - Hematologic/Lymphatic Hematologic/Lymphatic: no easy bruising - Constitutional Vitals: Temp Pulse Resp BP Pulse Ox 100.8 F H 70 15 142/55 100 04/26/18 18:23 04/26/18 18:23 04/26/18 18:23 04/26/18 18:23 04/26/18 18:23 General appearance: Present: morbidly obese, obese Exam: lethargic - Head Head exam: Present: atraumatic, normocephalic - Eye Eye exam: Present: PERRL, conjuntiva pink, sclera anicteric Pupils: Present: PERRL - Neck Neck exam general surgery: Present: supple, trachea midline. Absent: lymphadenopathy - Respiratory Respiratory exam: Present: CTAB. Absent: accessory muscle use, rales, rhonchi, wheezes - Cardiovascular Cardiovascular exam: Present: RRR, +S1, +S2. Absent: diastolic murmur, gallop, rubs, systolic murmur - GI/Abdominal GI/Abdominal exam: Present: normal bowel sounds, soft, tenderness, no peritoneal signs. Absent: distended - Extremities Exam Extremities exam: Present: pedal edema, warm, radial pulses palpable and symmetrical. Absent: calf tenderness, cyanotic - Neurological Exam Neurological exam: Present: CN II-XII intact, oriented X3, no focal deficits. Absent: pronater drift, facial droop, speech deficit - Skin Skin exam: Present: dry, intact Internal Med - H&P Results - Labs CBC & Chem 7: 04/26/18 16:50 04/26/18 16:12 - Assessment and plan (1) Sepsis Current Visit: No Status: Acute Assessment and plan: Pt came in with lethargy and weakness, and was noted to be tachycardic and febrile up to 101.3 with a leukocytosis of 20 on arrival. Obtain blood cultures, urinalysis was WNL. Was recently in the hospital and possible etiology is health care associated pneumonia which may be bacterial. Started on vanc, zosyn and levaquin Qualifiers: Sepsis type: Escherichia coli Qualified Code(s): A41.51 - Sepsis due to Escherichia coli [E. coli] (2) Acute kidney injury superimposed on chronic kidney disease Current Visit: No Status: Acute Assessment and plan: Monitor creatinine. Got hydrated in the ER. will hold off on fluids for now due to peripheral edema (3) Atrial fibrillation Current Visit: No Status: Chronic Assessment and plan: Stable. Continue apixaban, coreg and diltiazem Qualifiers: Atrial fibrillation type: paroxysmal Qualified Code(s): I48.0 - Paroxysmal atrial fibrillation (4) Pneumonia Current Visit: Yes Status: Acute Assessment and plan: Likely HCAP from possible bacterial causes. Follow up blood cultures. Continue on vanc, zosyn and levaquin Qualifiers: Pneumonia type: due to unspecified organism Laterality: unspecified laterality Lung location: unspecified part of lung Qualified Code(s): J18.9 - Pneumonia, unspecified organism (5) Uncontrolled type 2 diabetes mellitus with insulin therapy Current Visit: No Status: Chronic Assessment and plan: Resume insulin therapy (6) Anemia Current Visit: No Status: Acute Assessment and plan: Likely multifactorial from possible GI bleed, kidney disease, and history of malignancies. Had a negative endoscopy. Scheduled for an outpatient capsule endoscopy. Monitor CBC Qualifiers: Anemia type: other cause Other causes of anemia: chronic disease, other Qualified Code(s): D63.8 - Anemia in other chronic diseases classified elsewhere (7) Abdominal pain Current Visit: Yes Status: Acute Assessment and plan: Unclear etiology. patient complains of diffuse dull left sided ache. Denies diarrhea and nausea and vomiting. Obtain CT abdomen . Will follow Qualifiers: Abdominal location: left lower quadrant Qualified Code(s): R10.32 - Left lower quadrant pain (8) Diastolic CHF Current Visit: Yes Status: Acute Assessment and plan: Has diastolic CHF. Last EF was 55%. No acute exacerbation. Continue home meds, hold lasix Qualifiers: Qualified Code(s): I50.30 - Unspecified diastolic (congestive) heart failure (9) DVT prophylaxis Current Visit: No Status: Acute Assessment and plan: Continue on apixaban - Time Spent With Patient Total time spent is greater than 50% in coordination of care (as documented) at patient's floor/unit and/or counseling patient:
[2018-04-26] MEDS ORDERED: INSULIN DEGLUDEC 62 UNIT SQ SCH (21:00)
[2018-04-26] MEDS: Gabapentin 100 MG CAPSULE PO SCH (21:54)
[2018-04-26] MEDS: hydrALAZINE 25 MG TABLET PO SCH (21:54)
[2018-04-26] MEDS: Apixaban 2.5 MG TABLET PO SCH (21:55)
[2018-04-26] MEDS: cloNIDine HCl 0.1 MG TABLET PO SCH (21:55)
[2018-04-26] MEDS: Levofloxacin 750 MG/150 ML 750 MG/150 ML BAG IVPB SCH (21:55)
[2018-04-27] MEDS: Piperacillin/Tazobactam 3.375 GM in 0.9 % Sodium Chloride Mini Bag 100 ML IVPB SCH ×3 (00:59→15:30)
[2018-04-27 04:31] LABS: Basophils % 0.1 %; Eosinophils # 0.2 K/mcL (0.0-0.6); Eosinophils % 1.2 %; Hematocrit 21.7 % (35.3-44.9); Hemoglobin 6.8 g/dL (11.5-15.4); Immature Granulocytes % 0.7 % (0-4); Lymphocytes % 6.2 %; Mean Corpuscular HGB Conc 31.3 g/dL (31.6-35.5); Mean Corpuscular Hemoglobin 27.6 pg (28.0-33.3); Mean Corpuscular Volume 88.2 fL (83.0-100.0); Monocytes # 1.4 K/mcL (0.0-1.3); Monocytes % 9.1 %; Platelet Count 319 K/mcL (140-400); Red Blood Count 2.46 M/mcL (3.82-4.97); Red Cell Distribution Width 14.6 % (11.5-14.5); Segmented Neutrophils % 82.7 %
[2018-04-27 04:51] LABS: Calcium 8.7 mg/dL (8.6-10.3); Magnesium 1.8 mg/dL (1.6-2.6); Phosphorous 3.8 mg/dL (2.7-4.5)
[2018-04-27] MEDS ORDERED: NON-FORMULARY MEDICATION 1 EACH EACH (Insulin Aspart [Novolog Flexpen] 15 UNIT) SQ SCH (08:00)
[2018-04-27] MEDS: Aspirin Enteric Coated 81 MG Tablet PO SCH (09:21)
[2018-04-27] MEDS: Apixaban 2.5 MG TABLET PO SCH (09:21)
[2018-04-27] MEDS: cloNIDine HCl 0.1 MG TABLET PO SCH ×3 (09:21→21:14)
[2018-04-27] MEDS: Diltiazem CD (24hr) 120 MG CAPSULE PO SCH (09:21)
[2018-04-27] MEDS: Gabapentin 100 MG CAPSULE PO SCH ×2 (09:22→21:13)
[2018-04-27] MEDS: hydrALAZINE 25 MG TABLET PO SCH ×3 (09:22→21:13)
--- NOTE | 2018-04-27 09:35 | Internal Med Progress Note ---
Hospitalist Progress Note - Encounter Date of Encounter: 04/27/18 Time of Encounter: 09:30 - Exam Vitals: Temp Pulse Resp BP Pulse Ox 98.1 F 62 16 119/58 100 04/27/18 06:56 04/27/18 06:56 04/27/18 05:04 04/27/18 06:56 04/27/18 06:56 Exam: lethargic Gen - Awake, alert, oriented x 3, no acute distress HEENT - NCAT, PERRLA, EOMI, hearing grossly intact, oropharynx benign CV - RRR, normal S1 and S2, no M/R/G, no BLE edema Resp - Normal WOB, CTAB, no W/R/R GI - Soft, NT/ND, no masses, normal bowel sounds, Skin - Warm, dry, no rashes/lesions/ulcers Psych - Normal mood and affect, no depression or anxiety - Assessment and Plan (1) Sepsis Current Visit: No Status: Acute Assessment and Plan: Pt came in with lethargy and weakness, and was noted to be tachycardic and febrile up to 101.3 with a leukocytosis of 20 on arrival. Obtain blood cultures, urinalysis was WNL. Was recently in the hospital and possible etiology is health care associated pneumonia which may be bacterial. Started on vanc, zosyn and levaquin WBC has started to trend down and patient has improved this am (2) Acute kidney injury superimposed on chronic kidney disease Current Visit: No Status: Acute Assessment and Plan: Monitor creatinine. Got hydrated in the ER. will hold off on fluids for now due to peripheral edema. Creatinine improved this am (3) Atrial fibrillation Current Visit: No Status: Chronic Assessment and Plan: Stable. Continue apixaban, coreg and diltiazem (4) Pneumonia Current Visit: Yes Status: Acute Assessment and Plan: Likely HCAP from possible bacterial causes. Follow up blood cultures. Continue on vanc, zosyn and levaquin (5) Uncontrolled type 2 diabetes mellitus with insulin therapy Current Visit: No Status: Chronic Assessment and Plan: Resume insulin therapy (6) Anemia Current Visit: No Status: Acute Assessment and Plan: Likely multifactorial from possible GI bleed, kidney disease, and history of malignancies. Had a negative endoscopy. Scheduled for an outpatient capsule endoscopy. Monitor CBC (7) Abdominal pain Current Visit: Yes Status: Acute Assessment and Plan: Unclear etiology. patient complains of diffuse dull left sided ache. Denies diarrhea and nausea and vomiting. Obtain CT abdomen . Will follow Ct abdomen came back with hepatic lesions likely representing metastases, but otherwise no acute findings (8) Diastolic CHF Current Visit: Yes Status: Acute Assessment and Plan: Has diastolic CHF. Last EF was 55%. No acute exacerbation. Continue home meds, hold lasix (9) DVT prophylaxis Current Visit: No Status: Acute Assessment and Plan: Continue on apixaban - Time Spent with Patient Total time spent is greater than 50% in coordination of care (as documented) at patient's floor/unit and/or counseling patient: Internal Medicine: Result - Labs CBC & Chem 7: 04/27/18 03:54 04/27/18 03:54 Labs: Short CBC 04/27/18 Range/Units 03:54 WBC 15.7 H (4.3-11.1) K/mcL Hgb 6.8 L (11.5-15.4) g/dL Hct 21.7 L (35.3-44.9) % Plt Count 319 (140-400) K/mcL Neutrophils # 13.0 H (1.6-8.9) K/mcL BMP 04/27/18 03:54 Sodium 135 L Potassium 4.0 Chloride 102 Carbon Dioxide 24 BUN 53 H Creatinine 1.91 H Glucose 174 H Calcium 8.7 - ABG Interpretation ABG results: PT/INR, D-dimer PT 15.1 Seconds (9.4-12.1) H 04/26/18 16:12 - Impressions Impressions Abdomen/Pelvis CT 04/26/18 18:30 IMPRESSION: Slight interval enlargement of ileal colic mass with local inflammatory change. Hepatic lesions as noted above. Recommend follow-up hepatic MRI to exclude neoplasm or metastatic disease. D/ / Jorge Neely MD / Jorge Neely MD Interpreting Provider: Jorge Neely MD Consult Discharge Plan - Plan Referrals: Geremias Ryan DO [Primary Care Provider] - (1) Sepsis Qualifiers: Sepsis type: Escherichia coli Qualified Code(s): A41.51 - Sepsis due to Escherichia coli [E. coli] (3) Atrial fibrillation Qualifiers: Atrial fibrillation type: paroxysmal Qualified Code(s): I48.0 - Paroxysmal atrial fibrillation (4) Pneumonia Qualifiers: Pneumonia type: due to unspecified organism Laterality: unspecified laterality Lung location: unspecified part of lung Qualified Code(s): J18.9 - Pneumonia, unspecified organism (6) Anemia Qualifiers: Anemia type: other cause Other causes of anemia: chronic disease, other Qualified Code(s): D63.8 - Anemia in other chronic diseases classified elsewhere (7) Abdominal pain Qualifiers: Abdominal location: left lower quadrant Qualified Code(s): R10.32 - Left lower quadrant pain
[2018-04-27] MEDS: Insulin LISPRO 300 UNITS/3 ML VIAL SQ SCH ×3 (09:49→18:13)
[2018-04-27] MEDS: Furosemide 20 MG/2 ML VIAL IVP SCH ×2 (11:34→11:39)
[2018-04-27] MEDS ORDERED: *HR* Dextrose 50 % in Water (Syg) 50 ML SYRINGE IVP PRN (12:22)
[2018-04-27] MEDS ORDERED: D5% in Water 1,000 ML IVC PRN (12:22)
[2018-04-27] MEDS ORDERED: Dextrose Gel 15 GM/37.5 ML TUBE PO PRN ×2 (12:22)
[2018-04-27] MEDS: Insulin DETEMIR 100 UNIT/ML X5UNITS SQ SCH (15:54)
[2018-04-27] MEDS ORDERED: Cefepime HCl 2,000 MG in 0.9 % Sodium Chloride Mini Bag 100 ML IVPB ONE (17:09)
[2018-04-27] MEDS: Pantoprazole 40 MG VIAL IVP SCH (18:01)
[2018-04-27 18:13] LABS: INR 1.7; Prothrombin Time 19.4 Seconds (9.4-12.1)
[2018-04-27 18:22] LABS: Basophils # 0.1 K/mcL (0.0-0.2); Basophils % 0.3 %; Eosinophils # 0.2 K/mcL (0.0-0.6); Eosinophils % 1.4 %; Hematocrit 21.3 % (35.3-44.9); Hemoglobin 6.4 g/dL (11.5-15.4); Immature Granulocytes % 0.9 % (0-4); Lymphocytes # 0.8 K/mcL (0.6-4.6); Lymphocytes % 5.5 %; Mean Corpuscular Hemoglobin 26.6 pg (28.0-33.3); Mean Corpuscular Volume 88.4 fL (83.0-100.0); Mean Platelet Volume 10.7 fL (9.4-12.4); Monocytes # 1.6 K/mcL (0.0-1.3); Monocytes % 11.1 %; Neutrophils # 11.7 K/mcL (1.6-8.9); Platelet Count 314 K/mcL (140-400); Red Blood Count 2.41 M/mcL (3.82-4.97); Red Cell Distribution Width 14.7 % (11.5-14.5); Segmented Neutrophils % 80.8 %
[2018-04-27] MEDS ORDERED: 0.9 % Sodium Chloride 250 ML ONE (18:56)
[2018-04-27] MEDS ORDERED: Insulin LISPRO 300 UNITS/3 ML VIAL SQ ONE (18:56)
[2018-04-28] MEDS: Insulin DETEMIR 100 UNIT/ML X5UNITS SQ SCH ×3 (00:10→20:45)
[2018-04-28] MEDS: Furosemide 20 MG/2 ML VIAL IVP SCH (00:10)
[2018-04-28] MEDS: Piperacillin/Tazobactam 3.375 GM in 0.9 % Sodium Chloride Mini Bag 100 ML IVPB SCH ×3 (00:10→15:33)
[2018-04-28] MEDS ORDERED: 0.9 % Sodium Chloride 250 ML ONE (01:54)
[2018-04-28 03:13] LABS: Basophils % 0.3 %; Eosinophils # 0.2 K/mcL (0.0-0.6); Eosinophils % 1.5 %; Hemoglobin 6.9 g/dL (11.5-15.4); Immature Granulocytes % 0.7 % (0-4); Lymphocytes # 1.1 K/mcL (0.6-4.6); Lymphocytes % 6.7 %; Mean Corpuscular HGB Conc 31.4 g/dL (31.6-35.5); Mean Corpuscular Hemoglobin 27.8 pg (28.0-33.3); Mean Corpuscular Volume 88.7 fL (83.0-100.0); Mean Platelet Volume 11.2 fL (9.4-12.4); Monocytes # 1.8 K/mcL (0.0-1.3); Monocytes % 11.7 %; Neutrophils # 12.3 K/mcL (1.6-8.9); Platelet Count 323 K/mcL (140-400); Red Blood Count 2.48 M/mcL (3.82-4.97); Red Cell Distribution Width 14.6 % (11.5-14.5); Segmented Neutrophils % 79.1 %
[2018-04-28 03:19] LABS: INR 1.6; Prothrombin Time 17.6 Seconds (9.4-12.1)
[2018-04-28 03:27] LABS: Calcium 8.5 mg/dL (8.6-10.3); Magnesium 1.8 mg/dL (1.6-2.6); Phosphorous 4.1 mg/dL (2.7-4.5); Potassium 3.5 mEq/L (3.5-5.1)
[2018-04-28] MEDS: Pantoprazole 40 MG VIAL IVP SCH ×2 (05:11→18:43)
[2018-04-28] MEDS: Insulin LISPRO 300 UNITS/3 ML VIAL SQ SCH ×3 (08:14→17:31)
[2018-04-28 08:16] LABS: Basophils # 0.1 K/mcL (0.0-0.2); Basophils % 0.4 %; Eosinophils # 0.3 K/mcL (0.0-0.6); Eosinophils % 2.1 %; Hemoglobin 8.2 g/dL (11.5-15.4); Immature Granulocytes % 0.7 % (0-4); Lymphocytes # 1.1 K/mcL (0.6-4.6); Lymphocytes % 6.5 %; Mean Corpuscular HGB Conc 31.5 g/dL (31.6-35.5); Mean Corpuscular Volume 88.7 fL (83.0-100.0); Mean Platelet Volume 10.5 fL (9.4-12.4); Monocytes # 1.8 K/mcL (0.0-1.3); Monocytes % 10.7 %; Neutrophils # 13.2 K/mcL (1.6-8.9); Platelet Count 321 K/mcL (140-400); Red Blood Count 2.93 M/mcL (3.82-4.97); Red Cell Distribution Width 14.4 % (11.5-14.5); Segmented Neutrophils % 79.6 %
[2018-04-28] MEDS: cloNIDine HCl 0.1 MG TABLET PO SCH ×3 (08:16→20:45)
[2018-04-28] MEDS: Aspirin Enteric Coated 81 MG Tablet PO SCH (08:16)
[2018-04-28] MEDS: hydrALAZINE 25 MG TABLET PO SCH ×3 (08:16→20:45)
[2018-04-28] MEDS: Diltiazem CD (24hr) 120 MG CAPSULE PO SCH (08:17)
[2018-04-28] MEDS: Gabapentin 100 MG CAPSULE PO SCH ×2 (08:17→20:45)
--- NOTE | 2018-04-28 09:36 | Internal Med Progress Note ---
Hospitalist Progress Note - Encounter Date of Encounter: 04/28/18 Time of Encounter: 09:30 - Subjective Interval History: No acute events overnight - Exam Vitals: Temp Pulse Resp BP Pulse Ox 98.3 F 72 16 146/61 100 04/28/18 07:42 04/28/18 07:42 04/28/18 07:42 04/28/18 07:42 04/28/18 07:42 Exam: lethargic Gen - Awake, alert, oriented x 3, no acute distress HEENT - NCAT, PERRLA, EOMI, hearing grossly intact, oropharynx benign CV - RRR, normal S1 and S2, no M/R/G, no BLE edema Resp - Normal WOB, CTAB, no W/R/R GI - Soft, NT/ND, no masses, normal bowel sounds, Skin - Warm, dry, no rashes/lesions/ulcers Psych - Normal mood and affect, no depression or anxiety - Assessment and Plan (1) Sepsis Current Visit: No Status: Acute Assessment and Plan: Pt came in with lethargy and weakness, and was noted to be tachycardic and febrile up to 101.3 with a leukocytosis of 20 on arrival. Obtain blood cultures, urinalysis was WNL. Was recently in the hospital and possible etiology is health care associated pneumonia which may be bacterial. Started on vanc, zosyn and levaquin WBC has started to trend down and patient has improved this am (2) Acute kidney injury superimposed on chronic kidney disease Current Visit: No Status: Acute Assessment and Plan: Monitor creatinine. Got hydrated in the ER. will hold off on fluids for now due to peripheral edema. Started on lasix and creatinine slightly worsened. Hold lasix (3) Atrial fibrillation Current Visit: No Status: Chronic Assessment and Plan: Stable. Continue apixaban, coreg and diltiazem (4) Pneumonia Current Visit: Yes Status: Acute Assessment and Plan: Likely HCAP from possible bacterial causes. Follow up blood cultures. Continue on vanc, zosyn and levaquin (5) Uncontrolled type 2 diabetes mellitus with insulin therapy Current Visit: No Status: Chronic Assessment and Plan: Resume insulin therapy (6) Anemia Current Visit: No Status: Chronic Assessment and Plan: Likely multifactorial from possible GI bleed, kidney disease, and history of malignancies. Had a negative endoscopy. Scheduled for an outpatient capsule endoscopy. Monitor CBC 04/28. r/o GI bleed. Pt reported had dark stools and hemglobin dropped to 6.4. Transfused 2 units PRBC. Started on protonix and GI consulted. repeat hgb 8.2 today. GI plan for push enteroscopy (7) Abdominal pain Current Visit: Yes Status: Acute Assessment and Plan: Unclear etiology. patient complains of diffuse dull left sided ache. Denies diarrhea and nausea and vomiting. Obtain CT abdomen . Will follow Ct abdomen came back with hepatic lesions likely representing metastases, but otherwise no acute findings (8) Diastolic CHF Current Visit: Yes Status: Acute Assessment and Plan: Has diastolic CHF. Last EF was 55%. No acute exacerbation. Continue home meds, hold lasix (9) DVT prophylaxis Current Visit: No Status: Acute Assessment and Plan: Continue on apixaban (10) Liver metastases Current Visit: Yes Status: Acute Assessment and Plan: likely from colon cancer.CT showed enlarging lesions. Oncology consulted and appreciate recs - Time Spent with Patient Total time spent is greater than 50% in coordination of care (as documented) at patient's floor/unit and/or counseling patient: Internal Medicine: Result - Labs CBC & Chem 7: 04/28/18 08:03 04/28/18 01:50 Labs: Short CBC 04/27/18 04/28/18 04/28/18 Range/Units 17:56 01:50 08:03 WBC 14.5 H 15.6 H 16.5 H (4.3-11.1) K/mcL Hgb 6.4 L 6.9 L 8.2 L (11.5-15.4) g/dL Hct 21.3 L 22.0 L 26.0 L (35.3-44.9) % Plt Count 314 323 321 (140-400) K/mcL Neutrophils # 11.7 H 12.3 H 13.2 H (1.6-8.9) K/mcL BMP 04/28/18 01:50 Sodium 135 L Potassium 3.5 Chloride 102 Carbon Dioxide 24 BUN 58 H Creatinine 2.40 H Glucose 173 H Calcium 8.5 L - ABG Interpretation ABG results: PT/INR, D-dimer PT 17.6 Seconds (9.4-12.1) H 04/28/18 01:50 - Impressions Impressions Chest X-Ray 04/27/18 10:00 IMPRESSION: Perihilar and bibasilar opacities, mildly improved from previous examination. D/ / Chan Mccrary MD / Chan Mccrary MD Interpreting Provider: Chan Mccrary MD Consult Discharge Plan - Plan Referrals: Geremias Ryan DO [Primary Care Provider] - (1) Sepsis Qualifiers: Sepsis type: Escherichia coli Qualified Code(s): A41.51 - Sepsis due to Escherichia coli [E. coli] (3) Atrial fibrillation Qualifiers: Atrial fibrillation type: paroxysmal Qualified Code(s): I48.0 - Paroxysmal atrial fibrillation (4) Pneumonia Qualifiers: Pneumonia type: due to unspecified organism Laterality: unspecified laterality Lung location: unspecified part of lung Qualified Code(s): J18.9 - Pneumonia, unspecified organism (6) Anemia Qualifiers: Anemia type: other cause Other causes of anemia: chronic disease, other Qualified Code(s): D63.8 - Anemia in other chronic diseases classified elsewhere (7) Abdominal pain Qualifiers: Abdominal location: left lower quadrant Qualified Code(s): R10.32 - Left lower quadrant pain
--- NOTE | 2018-04-28 12:20 | Gastroenterology Consult Note ---
Date of Encounter: 04/28/18 Time of Encounter: 11:30 - Assessment and plan (1) Anemia Current Visit: No Status: Chronic Assessment and plan: Patient with the chronic blood loss anemia. Does has black stools was on iron by mouth. Had The drop in hemoglobin from 7.5 to 6.4 has been transfused recent EGD [address] Hester was unremarkable and a colonoscopy in September was also unremarkable. Patient is on Eliquis. Patient will be scheduled for a push enteroscopy after being off [employer] for at least 3 days as her creatinine is the elevated. Meanwhile follow H&H and transfuse as needed Qualifiers: Anemia type: other cause Other causes of anemia: chronic disease, other Qualified Code(s): D63.8 - Anemia in other chronic diseases classified elsewhere (2) CKD (chronic kidney disease) stage 3, GFR 30-59 ml/min Current Visit: No Status: Chronic Assessment and plan: Management as per primary team (3) Abnormal findings on diagnostic imaging of liver Current Visit: Yes Status: Acute Assessment and plan: Patient with multiple liver lesions that are very suspicious for metastases in this patient with underlying history of colon and renal cancer in the past. Patient also has a masslike lesion near anastomosis but that is suspicious for an internal intussusception of small bowel. We will check CEA and also ask for a oncology input patient will need biopsy done of her liver lesion. Also get CT with oral contrast to better define the lesion near the anastomosis. - Time Spent With Patient Total time spent is greater than 50% in coordination of care (as documented) at patient's floor/unit and/or counseling patient: GI History of Present Illness - Data of Consult Consult date: 04/28/18 Requesting Physician: Carmela Fatima - Consult Narrative Reason for consult: Anemia and black stool with drop in his hemoglobin History of present illness: Ms. Hitchcock is a 72 year old female with multiple medical problem including history of renal and colon cancer status post resection in 2016. We will asked to see her because of her worsening anemia. Per patient she is been having black stool for the last many months she was in the hospital just 3 weeks ago and had scopes done by Dr. Hester that were unremarkable. Denies any diarrhea denies any abdominal pain. Per patient she was admitted to the hospital because she was just not feeling well. During hospitalization hemoglobin dropped from 7.5 admission to 6.4 and has been transfused 2 unit of blood. Patient had EGD done by Dr. Hester on 04/16/2018 and it was unremarkable and she had a colonoscopy done in September by Dr. Hester also that was unremarkable. Past Med Surg Social Fam HX - Past Medical History Medical history: arthritis, asthma, atrial fibrillation, cancer, CHF, COPD, coronary artery disease, diabetes, hyperlipidemia, hypertension, myocardial infarction Additional medical history: colon cancer. knee cancer. kidney cancer Psychiatric history: anxiety, depression - Past Surgical History Surgical History: angioplasty/stent, cholecystectomy, colectomy, coronary bypass (CABG), other Additional surgical history: Colon resection d/t cancer; nephrectomy - Social History Smoking Status: Never smoker Smokeless Tobacco Status: No Alcohol use: none Drug use: none - Family History Father Family Member Ethnicity: Non- Living Status: Hx Family Cardiac Disorders: Yes (CHF, CAD, RI) Hx Family Respiratory Disorders: No Hx Family Cancer: No Hx Family GI Disorders: No Hx Family Endocrine Disorder: No Hx Family Neuromuscular Disorders: No Hx Family Neurologic Disorders: No Hx Family HEENT Disorders: No Hx Family Autoimmune Disorders: No Brother Family Member Ethnicity: Non- Living Status: Hx Family Cancer: Yes (Throat) Sister Family Member Ethnicity: Non- Living Status: Hx Family Respiratory Disorders: Yes (Emphysema) Hx Family Cancer: Yes (Breast) Mother History Unknown: Yes Family Member Ethnicity: Non- Living Status: Hx Family Cardiac Disorders: No Hx Family Respiratory Disorders: Yes (asthma) Hx Family Cancer: Yes (Colon) Hx Family GI Disorders: No Hx Family Endocrine Disorder: No Hx Family Neuromuscular Disorders: No Hx Family Neurologic Disorders: No Hx Family HEENT Disorders: No Hx Family Autoimmune Disorders: No Review of Systems: GI: as per [place] [facility]: denies fever, EYES: denies yellow discoloration ENT: denies pain with swallowing or difficulty swallowing CARDIO: denies chest pain, palpitations RESP: Had some shortness of breath when was admitted : Does has some urinary symptoms such as burning NEURO: Has generalized weakness HEME: Denies any bruising MS: denies joint pain, DERM: denies rash or itching, had a skin lesion removed from her lower leg PSYCH: Denies history of anxiety or depression - Constitutional Vitals: Temp Pulse Resp BP Pulse Ox 98.3 F 72 16 146/61 100 09/01/18 07:42 04/28/18 07:42 04/28/18 07:42 04/28/18 07:42 04/28/18 07:42 Exam: CONSTITUTIONAL:~alert, no acute distress. Is very emotional and Tearful while talking to her ~HEAD:~normocephalic.~EYES:~no jaundice.~NECK:~no obvious swelling.~HEART:~regular rate,~LUNGS:~Not tachypneic, chest: Old scar of CABG.~ ABDOMEN:~non distended, a small Jesu hernia has old surgical scar from her previous robotic surgery.~RECTAL EXAM:~Deferred.~EXTREMITIES:~2+ edema.~SKIN:~ Right lower leg scar of previous skin tumor removal.~NEUROLOGIC:~AAO. : Foleys catheter in place.~~~~ Results - Labs CBC & Chem 7: 04/28/18 08:03 04/28/18 01:50 Labs: Last Result Calcium 8.5 mg/dL (8.6-10.3) L 04/28/18 01:50 Troponin I 0.03 ng/mL (< 0.04) 04/26/18 16:12 Entire Visit Hgb 8.2 g/dL (11.5-15.4) L 04/28/18 08:03 Hct 26.0 % (35.3-44.9) L 04/28/18 08:03 PT 17.6 Seconds (9.4-12.1) H 04/28/18 01:50 Total Bilirubin 0.4 mg/dL (0.3-1.0) 04/26/18 16:12 AST 14 Units/L (13-39) 04/26/18 16:12 ALT 18 Units/L (7-52) 04/26/18 16:12 Lipase 36 Units/L (11-82) 04/26/18 16:12 - ABG ABG results: PT/INR, D-dimer PT 17.6 Seconds (9.4-12.1) H 04/28/18 01:50 - Impressions Impressions Chest X-Ray 04/27/18 10:00 IMPRESSION: Perihilar and bibasilar opacities, mildly improved from previous examination. D/ / Chan Mccrary MD / Chan Mccrary MD Interpreting Provider: Chan Mccrary MD Consult Discharge Plan - Plan Referrals: Geremias Ryan DO [Primary Care Provider] -
[2018-04-28 17:30] LABS: Hemoglobin 7.5 g/dL (11.5-15.4)
[2018-04-28] MEDS: Levofloxacin 750 MG/150 ML 750 MG/150 ML BAG IVPB SCH (22:13)
[2018-04-29 00:56] LABS: Basophils # 0.1 K/mcL (0.0-0.2); Basophils % 0.4 %; Eosinophils # 0.4 K/mcL (0.0-0.6); Eosinophils % 2.7 %; Hemoglobin 7.4 g/dL (11.5-15.4); Immature Granulocytes % 0.8 % (0-4); Lymphocytes # 0.8 K/mcL (0.6-4.6); Lymphocytes % 5.9 %; Mean Corpuscular HGB Conc 32.2 g/dL (31.6-35.5); Mean Corpuscular Hemoglobin 28.5 pg (28.0-33.3); Mean Corpuscular Volume 88.5 fL (83.0-100.0); Mean Platelet Volume 10.8 fL (9.4-12.4); Monocytes # 1.6 K/mcL (0.0-1.3); Monocytes % 11.2 %; Neutrophils # 11.2 K/mcL (1.6-8.9); Platelet Count 307 K/mcL (140-400); Red Cell Distribution Width 14.7 % (11.5-14.5)
[2018-04-29 01:24] LABS: Calcium 8.3 mg/dL (8.6-10.3); Magnesium 1.8 mg/dL (1.6-2.6); Phosphorous 3.2 mg/dL (2.7-4.5); Potassium 3.7 mEq/L (3.5-5.1)
[2018-04-29] MEDS: Piperacillin/Tazobactam 3.375 GM in 0.9 % Sodium Chloride Mini Bag 100 ML IVPB SCH ×2 (04:29→15:34)
[2018-04-29] MEDS: Pantoprazole 40 MG VIAL IVP SCH ×2 (06:32→16:43)
[2018-04-29] MEDS: Insulin LISPRO 300 UNITS/3 ML VIAL SQ SCH ×3 (07:29→16:43)
[2018-04-29] MEDS: Gabapentin 100 MG CAPSULE PO SCH ×2 (08:15→20:25)
[2018-04-29] MEDS: Aspirin Enteric Coated 81 MG Tablet PO SCH (08:15)
[2018-04-29] MEDS: hydrALAZINE 25 MG TABLET PO SCH ×3 (08:15→20:25)
[2018-04-29] MEDS: Furosemide 20 MG TABLET PO SCH (08:15)
[2018-04-29] MEDS: cloNIDine HCl 0.1 MG TABLET PO SCH ×3 (08:15→20:24)
[2018-04-29] MEDS: Diltiazem CD (24hr) 120 MG CAPSULE PO SCH (08:16)
[2018-04-29] MEDS: Insulin DETEMIR 100 UNIT/ML X5UNITS SQ SCH ×2 (08:20→20:25)
[2018-04-29 08:44] LABS: Hematocrit 22.7 % (35.3-44.9); Hemoglobin 7.3 g/dL (11.5-15.4)
--- NOTE | 2018-04-29 08:47 | Internal Med Progress Note ---
Hospitalist Progress Note - Encounter Date of Encounter: 04/29/18 Time of Encounter: 08:45 - Subjective Interval History: No acute events overnight - Exam Vitals: Temp Pulse Resp BP Pulse Ox 98.7 F 62 16 142/52 100 04/29/18 06:44 04/29/18 06:44 04/29/18 06:44 04/29/18 06:44 04/29/18 06:44 Exam: lethargic Gen - Awake, alert, oriented x 3, no acute distress HEENT - NCAT, PERRLA, EOMI, hearing grossly intact, oropharynx benign CV - RRR, normal S1 and S2, no M/R/G, no BLE edema Resp - Normal WOB, CTAB, no W/R/R GI - Soft, NT/ND, no masses, normal bowel sounds, Skin - Warm, dry, no rashes/lesions/ulcers Psych - Normal mood and affect, no depression or anxiety - Assessment and Plan (1) Sepsis Current Visit: No Status: Acute Assessment and Plan: Pt came in with lethargy and weakness, and was noted to be tachycardic and febrile up to 101.3 with a leukocytosis of 20 on arrival. Obtain blood cultures, urinalysis was WNL. Was recently in the hospital and possible etiology is health care associated pneumonia which may be bacterial. Started on vanc, zosyn and levaquin WBC has started to trend down and patient has improved (2) Anemia Current Visit: No Status: Chronic Assessment and Plan: Likely multifactorial from possible GI bleed, kidney disease, and history of malignancies. Had a negative endoscopy. 04/29. Anemia with acute blood loss r/o GI bleed. Pt reported had dark stools and hemglobin dropped to 6.4. Transfused 2 units PRBC. Started on protonix and GI consulted. repeat hgb 7.4 today. GI plan for push enteroscopy on ce patient has been off eliquis for 3 days (3) Acute kidney injury superimposed on chronic kidney disease Current Visit: No Status: Acute Assessment and Plan: Monitor creatinine. Got hydrated in the ER. will hold off on fluids for now due to peripheral edema. Started on lasix and creatinine slightly worsened. Hold lasix (4) Liver metastases Current Visit: Yes Status: Acute Assessment and Plan: likely from colon cancer.CT showed enlarging lesions. Oncology consulted and appreciate recs (5) Pneumonia Current Visit: Yes Status: Acute Assessment and Plan: Likely HCAP from possible bacterial causes. Follow up blood cultures. Continue on vanc, zosyn and levaquin (6) Atrial fibrillation Current Visit: No Status: Chronic Assessment and Plan: Stable. Continue apixaban, coreg and diltiazem (7) Uncontrolled type 2 diabetes mellitus with insulin therapy Current Visit: No Status: Chronic Assessment and Plan: Resume insulin therapy (8) Abdominal pain Current Visit: Yes Status: Acute Assessment and Plan: Unclear etiology. patient complains of diffuse dull left sided ache. Denies diarrhea and nausea and vomiting. Obtain CT abdomen . Will follow Ct abdomen came back with hepatic lesions likely representing metastases, but otherwise no acute findings (9) Diastolic CHF Current Visit: Yes Status: Acute Assessment and Plan: Has diastolic CHF. Last EF was 55%. No acute exacerbation. Continue home meds, hold lasix (10) DVT prophylaxis Current Visit: No Status: Acute Assessment and Plan: Continue on apixaban - Time Spent with Patient Total time spent is greater than 50% in coordination of care (as documented) at patient's floor/unit and/or counseling patient: Internal Medicine: Result - Labs CBC & Chem 7: 04/29/18 08:34 04/29/18 00:30 Labs: Short CBC 04/28/18 04/29/18 Range/Units 16:00 00:30 WBC 14.1 H (4.3-11.1) K/mcL Hgb 7.5 L 7.4 L (11.5-15.4) g/dL Hct 24.0 L 23.0 L (35.3-44.9) % Plt Count 307 (140-400) K/mcL Neutrophils # 11.2 H (1.6-8.9) K/mcL BMP 04/29/18 00:30 Sodium 134 L Potassium 3.7 Chloride 103 Carbon Dioxide 25 BUN 52 H Creatinine 2.18 H Glucose 202 H Calcium 8.3 L - ABG Interpretation ABG results: PT/INR, D-dimer PT 17.6 Seconds (9.4-12.1) H 04/28/18 01:50 - Impressions Impressions Abdomen/Pelvis CT 04/28/18 14:30 IMPRESSION: No significant interval change. Left mid abdominal mass which may be causing partial intussusception however no small bowel obstruction is seen. Hepatic metastatic disease. D/ / 04/28/2018 16:45:30 Silvestre Alston MD / sandro Interpreting Provider: Silvestre Alston MD Consult Discharge Plan - Plan Referrals: Geremias Ryan DO [Primary Care Provider] - (1) Sepsis Qualifiers: Sepsis type: Escherichia coli Qualified Code(s): A41.51 - Sepsis due to Escherichia coli [E. coli] (2) Anemia Qualifiers: Anemia type: other cause Other causes of anemia: chronic disease, other Qualified Code(s): D63.8 - Anemia in other chronic diseases classified elsewhere (5) Pneumonia Qualifiers: Pneumonia type: due to unspecified organism Laterality: unspecified laterality Lung location: unspecified part of lung Qualified Code(s): J18.9 - Pneumonia, unspecified organism (6) Atrial fibrillation Qualifiers: Atrial fibrillation type: paroxysmal Qualified Code(s): I48.0 - Paroxysmal atrial fibrillation (8) Abdominal pain Qualifiers: Abdominal location: left lower quadrant Qualified Code(s): R10.32 - Left lower quadrant pain
--- NOTE | 2018-04-29 08:51 | Oncology Inp Consult Note ---
Date of Encounter: 04/29/18 Time of Encounter: 08:00 Assessment and Plan (1) Abdominal pain Status: Acute Assessment and plan: Uncertain as to cause of abdominal pain. ? early intussusception. GI has been consulted. Pain is resolved today. She is moving her bowels. Qualifiers: Abdominal location: left lower quadrant Qualified Code(s): R10.32 - Left lower quadrant pain (2) History of colon cancer Status: Acute Assessment and plan: History of two synchronous colon cancers s/p resection. Now with multiple subtle liver lesions concerning for metastases. The left liver lesion appears stable from imaging in November. The right liver lesion does appear new. But again, it is very subtle appearance by my review. CEA ordered. I recommend outpatient PET/CT imaging to further delineate the liver lesions as well as the mass at the ileocolonic anastomosis. (3) MARANDA (iron deficiency anemia) Status: Acute Assessment and plan: She has iron deficiency by labs 04/10/18. This is likely secondary to occult GI bleed. CKD is contributing to anemia. GI consulted for push enteroscopy. May be worthwhile evaluating anastomosis again as well given CT findings. I am concerned she may have a localized recurrence. As stated above, I think PET/CT imaging may help delineate this. She received transfusion, eliquis stopped. I have ordered venofer 400 mg x 1. Qualifiers: Iron deficiency anemia type: other iron deficiency Qualified Code(s): D50.8 - Other iron deficiency anemias (4) Renal cell carcinoma of left kidney Status: Acute Assessment and plan: As above. (5) CKD (chronic kidney disease) stage 3, GFR 30-59 ml/min Status: Chronic Assessment and plan: She stage III CKD. This is likely contributing to her anemia as well. Will replete iron for iron deficiency and consider EPO as outpatient depending on response. Goal ferritin greater than 200 and transferrin saturation greater than 20%. - Data of Consult Requesting Physician: Carmela Fatima Primary Care Provider: Geremias Ryan DO - Consult Narrative Reason for consult: New liver lesions History of present illness: Ms. 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 She originally underwent endoscopy by Dr. Schaefer on 11/17/2015. Her endoscopy showed 3 lesions within the colon: Two malignant appearing lesions, one within the ascending colon, and one within the transverse colon. She also had a polypoid lesion in her descending colon. The polypoid lesion in the descending colon was approximately 20 mm and resected and retrieved. The other 2 lesions were biopsied and tattooed. She underwent colectomy on 11/27/2015. Pathology demonstrated two T2N0M0 adenocarcinomas. MSI normal on 10/28/2016. CT of the abdomen and pelvis demonstrated a Left upper pole renal mass measuring 3.5 x 3.9 x 5 cm in size highly suspicious for renal cell carcinoma. She had left nephrectomy with Dr. Posada on 11/29/2016. Pathology revealed a 4 cm Scar grade 4 stage I clear cell renal carcinoma. She was most recently seen in our office March of this year. She was admitted 04/26/18 with left sided abdominal pain, fever and chills. CT at time of admission revealed persistent mass at the ileocolonic anastomosis with modest lymphadenopathy. There is a subtle lesion in the anterior right hepatic lobe measuring 5 cm and another involving lateral left hepatic lobe by my review. The left lesion was present in November as well. Dr. Hester completed colonoscopy which was unrevealing in September. In addition, CT imaging showed liver lesions concerning for metastases. Today, she is feeling much better. Her fever and chills have resolved. Her abdominal pain has also improved. No other new aches or pains. Appetite and weight remain stable. No right upper quadrant discomfort currently. Past Med Surg Social Fam HX - Past Medical History Medical history: arthritis, asthma, atrial fibrillation, cancer, CHF, COPD, coronary artery disease, diabetes, hyperlipidemia, hypertension, myocardial infarction Additional medical history: colon cancer. knee cancer. kidney cancer Psychiatric history: anxiety, depression - Past Surgical History Surgical History: angioplasty/stent, cholecystectomy, colectomy, coronary bypass (CABG), other Additional surgical history: Colon resection d/t cancer; nephrectomy - Social History Smoking Status: Never smoker Smokeless Tobacco Status: No Alcohol use: none Drug use: none - Family History Father Family Member Ethnicity: Non- Living Status: Hx Family Cardiac Disorders: Yes (CHF, CAD, NE) Hx Family Respiratory Disorders: No Hx Family Cancer: No Hx Family GI Disorders: No Hx Family Endocrine Disorder: No Hx Family Neuromuscular Disorders: No Hx Family Neurologic Disorders: No Hx Family HEENT Disorders: No Hx Family Autoimmune Disorders: No Brother Family Member Ethnicity: Non- Living Status: Hx Family Cancer: Yes (Throat) Sister Family Member Ethnicity: Non- Living Status: Hx Family Respiratory Disorders: Yes (Emphysema) Hx Family Cancer: Yes (Breast) Mother History Unknown: Yes Family Member Ethnicity: Non- Living Status: Hx Family Cardiac Disorders: No Hx Family Respiratory Disorders: Yes (asthma) Hx Family Cancer: Yes (Colon) Hx Family GI Disorders: No Hx Family Endocrine Disorder: No Hx Family Neuromuscular Disorders: No Hx Family Neurologic Disorders: No Hx Family HEENT Disorders: No Hx Family Autoimmune Disorders: No Medications and Allergies Aspirin [Adult Low Dose Aspirin EC] 81 mg PO DAILY 11/15/15 [History] Insulin ASPART [Novolog Flexpen] 15 unit SQ TIDWM MDD + SLIDING SCALE 11/15/15 [ History] Ferrous Sulfate 325 mg PO DAILY 11/29/16 [History] Hydralazine HCl 100 mg PO TID 11/29/16 [History] [place]-3/Dha/Epa/Fish Oil [Fish Oil 1,000 mg Softgel] 1 cap PO DAILY 11/29/16 [ History] cloNIDine HCl [Clonidine HCl] 0.3 mg PO TID #90 tab 03/05/17 [Rx] Albuterol Sulfate [Proair Hfa] 1 puff IH Q4H PRN #1 inh 05/11/17 [Rx] ALPRAZolam [Xanax 0.5 MG Tablet] 0.5 mg PO BID PRN 08/08/17 [History] Apixaban [Eliquis] 2.5 mg PO BID 08/08/17 [History] Pravastatin Sodium [Pravachol] 80 mg PO QPM 08/08/17 [History] Carvedilol [Coreg] 25 mg PO BIDWM #60 tablet 08/18/17 [Rx] Oxygen 2 l NS AD 09/22/17 [History] Furosemide [Lasix] 40 mg PO DAILY PRN 10/19/17 [History] Dulaglutide [Trulicity] 0.75 mg SQ TH 04/13/18 [History] Gabapentin [Neurontin] 100 mg PO BID 04/13/18 [History] Insulin Degludec [Tresiba Flextouch U-200] 62 unit SQ HS 04/13/18 [History] dilTIAZem HCl [Diltiazem 24Hr ER] 120 mg PO DAILY 04/13/18 [History] Mupirocin Calcium [Bactroban Nasal] 1 gm NS BID 5 Days #1 oint...g. 04/16/18 [Rx ] 3 Allergy/AdvReac Type Severity Reaction Status Date / Time Sulfa (Sulfonamide Allergy Severe Swelling Verified 04/10/18 15:11 Antibiotics) of Lip/Tongue/Throat All systems: reviewed and no additional remarkable complaints except as stated Constitutional: Present: fatigue Eyes: Present: as per HPI Ears: Present: as per HPI Nose, mouth and throat: Present: as per HPI Cardiovascular: Present: as per HPI Respiratory: Present: as per HPI Gastrointestinal: Present: as per HPI Genitourinary: Present: as per HPI Menstruation: as per HPI Musculoskeletal: Present: as per HPI Integumentary: Present: as per HPI Oncology - Exam - Constitutional Vitals: Temp Pulse Resp BP Pulse Ox 98.7 F 62 16 142/52 100 04/29/18 06:44 04/29/18 06:44 04/29/18 06:44 04/29/18 06:44 04/29/18 06:44 General appearance: cooperative, no acute distress, obese - Head Head exam: Present: atraumatic, normal inspection, normocephalic - Eye Eye exam: Present: normal appearance, conjuntiva pink, sclera anicteric - ENT ENT exam: Present: mucous membranes moist, normal oropharynx - Neck Neck exam: Present: full ROM, normal inspection - Respiratory Respiratory exam: Present: CTAB - Cardiovascular Cardiovascular exam: Present: RRR - GI/Abdominal GI/Abdominal exam: Present: normal bowel sounds, soft - Extremities Exam Extremities exam: Present: normal inspection, pedal edema Additional comments: Right leg incision clean dry and intact - Back Exam Back exam: Present: normal inspection - Neurological Exam Neurological exam: Present: alert, CN II-XII intact, oriented X3, no focal deficits Oncology - Results Labs: 3 04/29/18 04/29/18 04/29/18 08:34 00:30 00:30 WBC 14.1 H RBC 2.60 L Hgb 7.3 L 7.4 L Hct 22.7 L 23.0 L MCV 88.5 MCH 28.5 MCHC 32.2 RDW 14.7 H Plt Count 307 MPV 10.8 Immature Gran % 0.8 Seg Neutrophils % 79.0 Lymphocytes % 5.9 Monocytes % 11.2 Eosinophils % 2.7 Basophils % 0.4 Neutrophils # 11.2 H Lymphocytes # 0.8 Monocytes # 1.6 H Eosinophils # 0.4 Basophils # 0.1 PT INR Sodium 134 L Potassium 3.7 Chloride 103 Carbon Dioxide 25 BUN 52 H Creatinine 2.18 H Est GFR ( Amer) 27 L Est GFR (Non-Af Amer) 22 L BUN/Creatinine Ratio 24 Glucose 202 H POC Glucose Calculated Osmolality 298 Calcium 8.3 L Phosphorus 3.2 Magnesium 1.8 Vancomycin Trough Blood Type Antibody Screen Crossmatch 3 04/28/18 04/28/18 04/28/18 20:39 17:00 16:19 WBC RBC Hgb Hct MCV MCH MCHC RDW Plt Count MPV Immature Gran % Seg Neutrophils % Lymphocytes % Monocytes % Eosinophils % Basophils % Neutrophils # Lymphocytes # Monocytes # Eosinophils # Basophils # PT INR Sodium Potassium Chloride Carbon Dioxide BUN Creatinine Est GFR ( Amer) Est GFR (Non-Af Amer) BUN/Creatinine Ratio Glucose POC Glucose 260 H 120 H Calculated Osmolality Calcium Phosphorus Magnesium Vancomycin Trough 12 H Blood Type Antibody Screen Crossmatch 3 04/28/18 04/28/18 04/28/18 16:00 12:18 08:03 WBC 16.5 H RBC 2.93 L Hgb 7.5 L 8.2 L Hct 24.0 L 26.0 L MCV 88.7 MCH 28.0 MCHC 31.5 L RDW 14.4 Plt Count 321 MPV 10.5 Immature Gran % 0.7 Seg Neutrophils % 79.6 Lymphocytes % 6.5 Monocytes % 10.7 Eosinophils % 2.1 Basophils % 0.4 Neutrophils # 13.2 H Lymphocytes # 1.1 Monocytes # 1.8 H Eosinophils # 0.3 Basophils # 0.1 PT INR Sodium Potassium Chloride Carbon Dioxide BUN Creatinine Est GFR ( Amer) Est GFR (Non-Af Amer) BUN/Creatinine Ratio Glucose POC Glucose 133 H Calculated Osmolality Calcium Phosphorus Magnesium Vancomycin Trough Blood Type Antibody Screen Crossmatch 3 04/28/18 04/28/18 04/28/18 07:45 01:50 01:50 WBC 15.6 H RBC 2.48 L Hgb 6.9 L Hct 22.0 L MCV 88.7 MCH 27.8 L MCHC 31.4 L RDW 14.6 H Plt Count 323 MPV 11.2 Immature Gran % 0.7 Seg Neutrophils % 79.1 Lymphocytes % 6.7 Monocytes % 11.7 Eosinophils % 1.5 Basophils % 0.3 Neutrophils # 12.3 H Lymphocytes # 1.1 Monocytes # 1.8 H Eosinophils # 0.2 Basophils # 0.0 PT 17.6 H INR 1.6 Sodium Potassium Chloride Carbon Dioxide BUN Creatinine Est GFR ( Amer) Est GFR (Non-Af Amer) BUN/Creatinine Ratio Glucose POC Glucose 136 H Calculated Osmolality Calcium Phosphorus Magnesium Vancomycin Trough Blood Type Antibody Screen Crossmatch 3 04/28/18 04/27/18 04/27/18 01:50 21:40 17:56 WBC 14.5 H RBC 2.41 L Hgb 6.4 L Hct 21.3 L MCV 88.4 MCH 26.6 L MCHC 30.0 L RDW 14.7 H Plt Count 314 MPV 10.7 Immature Gran % 0.9 Seg Neutrophils % 80.8 Lymphocytes % 5.5 Monocytes % 11.1 Eosinophils % 1.4 Basophils % 0.3 Neutrophils # 11.7 H Lymphocytes # 0.8 Monocytes # 1.6 H Eosinophils # 0.2 Basophils # 0.1 PT INR Sodium 135 L Potassium 3.5 Chloride 102 Carbon Dioxide 24 BUN 58 H Creatinine 2.40 H Est GFR ( Amer) 24 L Est GFR (Non-Af Amer) 20 L BUN/Creatinine Ratio 24 Glucose 173 H POC Glucose 292 H Calculated Osmolality 300 Calcium 8.5 L Phosphorus 4.1 Magnesium 1.8 Vancomycin Trough Blood Type Antibody Screen Crossmatch 3 04/27/18 04/27/18 04/27/18 17:56 17:56 16:31 WBC RBC Hgb Hct MCV MCH MCHC RDW Plt Count MPV Immature Gran % Seg Neutrophils % Lymphocytes % Monocytes % Eosinophils % Basophils % Neutrophils # Lymphocytes # Monocytes # Eosinophils # Basophils # PT 19.4 H INR 1.7 Sodium Potassium Chloride Carbon Dioxide BUN Creatinine Est GFR ( Amer) Est GFR (Non-Af Amer) BUN/Creatinine Ratio Glucose POC Glucose 285 H Calculated Osmolality Calcium Phosphorus Magnesium Vancomycin Trough Blood Type O POSITIVE Antibody Screen NEGATIVE Crossmatch See Detail 3 04/27/18 04/27/1804/27/18 12:08 12:00 11:02 WBC RBC Hgb Hct MCV MCH MCHC RDW Plt Count MPV Immature Gran % Seg Neutrophils % Lymphocytes % Monocytes % Eosinophils % Basophils % Neutrophils # Lymphocytes # Monocytes # Eosinophils # Basophils # PT INR Sodium Potassium Chloride Carbon Dioxide BUN Creatinine Est GFR ( Amer) Est GFR (Non-Af Amer) BUN/Creatinine Ratio Glucose POC Glucose 338 H 351 H 351 H Calculated Osmolality Calcium Phosphorus Magnesium Vancomycin Trough Blood Type Antibody Screen Crossmatch 3 04/27/18 04/27/18 04/27/18 07:00 03:54 03:54 WBC 15.7 H RBC 2.46 L Hgb 6.8 L Hct 21.7 L MCV 88.2 MCH 27.6 L MCHC 31.3 L RDW 14.6 H Plt Count 319 MPV 11.0 Immature Gran % 0.7 Seg Neutrophils % 82.7 Lymphocytes % 6.2 Monocytes % 9.1 Eosinophils % 1.2 Basophils % 0.1 Neutrophils # 13.0 H Lymphocytes # 1.0 Monocytes # 1.4 H Eosinophils # 0.2 Basophils # 0.0 PT INR Sodium 135 L Potassium 4.0 Chloride 102 Carbon Dioxide 24 BUN 53 H Creatinine 1.91 H Est GFR ( Amer) 31 L Est GFR (Non-Af Amer) 26 L BUN/Creatinine Ratio 28 H Glucose 174 H POC Glucose 171 H Calculated Osmolality 299 Calcium 8.7 Phosphorus 3.8 Magnesium 1.8 Vancomycin Trough Blood Type Antibody Screen Crossmatch 3 04/26/18 19:54 WBC RBC Hgb Hct MCV MCH MCHC RDW Plt Count MPV Immature Gran % Seg Neutrophils % Lymphocytes % Monocytes % Eosinophils % Basophils % Neutrophils # Lymphocytes # Monocytes # Eosinophils # Basophils # PT INR Sodium Potassium Chloride Carbon Dioxide BUN Creatinine Est GFR ( Amer) Est GFR (Non-Af Amer) BUN/Creatinine Ratio Glucose POC Glucose 197 H Calculated Osmolality Calcium Phosphorus Magnesium Vancomycin Trough Blood Type Antibody Screen Crossmatch CT OF THE ABDOMEN AND PELVIS WITHOUT CONTRAST, 04/28/2018 4:11 pm FINDINGS: Lower Chest: Cardiomegaly. No pericardial effusion. No pleural effusions. Organs: Evaluation of the solid organs is limited without intravenous contrast. Ill-defined hepatic hypodensities most likely represent hepatic metastatic disease. Within the right hepatic lobe there is a subtle hypodensity measuring up to 5 cm. Prior cholecystectomy. No pancreatic lesion. No splenomegaly. Bilateral adrenal gland thickening is seen. Prior left nephrectomy. No right-sided hydronephrosis. No right renal calculus. GI/Bowel: No bowel obstruction. Again seen within the left upper abdomen is a mass-like area with surrounding inflammatory changes. There is fat density within this and small bowel courses around or adjacent to this suggesting possible partial intussusception however the appearance is similar to prior studies. Pelvis: Membreno catheter is seen within the urinary bladder. No bladder calculus. No free fluid. Peritoneum/Retroperitoneum: Atherosclerotic calcification of the abdominal aorta. Prominent lymph nodes are seen adjacent to the left abdominal mass. No retroperitoneal adenopathy. No pelvic adenopathy. Bones/Soft Tissues: No acute soft tissue abnormality. Degenerative changes are seen within the lumbar spine. CT/CT abd pelvis wo iv oral only IMPRESSION: No significant interval change. Left mid abdominal mass which may be causing partial intussusception however no small bowel obstruction is seen. Hepatic metastatic disease. Consult Discharge Plan - Plan Referrals: Geremias Ryan DO [Primary Care Provider] - Inpatient Charges Provider: Dr. Debi Cevallos Consult Charges: 92910
[2018-04-29] MEDS ORDERED: Iron Sucrose Complex 400 MG in 0.9 % Sodium Chloride 250 ML IVPB ONE (08:59)
[2018-04-29 13:45] LABS: Carcinoembryonic Antigen 9.3 ng/mL (Less than 5.0)
[2018-04-29 17:59] LABS: Hematocrit 23.1 % (35.3-44.9); Hemoglobin 7.3 g/dL (11.5-15.4)
[2018-04-30] MEDS: Piperacillin/Tazobactam 3.375 GM in 0.9 % Sodium Chloride Mini Bag 100 ML IVPB SCH (04:28)
[2018-04-30] MEDS: Pantoprazole 40 MG VIAL IVP SCH ×2 (06:26→17:04)
[2018-04-30 08:11] LABS: Basophils % 0.2 %; Eosinophils # 0.3 K/mcL (0.0-0.6); Eosinophils % 2.4 %; Hematocrit 23.1 % (35.3-44.9); Hemoglobin 7.2 g/dL (11.5-15.4); Immature Granulocytes % 0.9 % (0-4); Lymphocytes # 0.9 K/mcL (0.6-4.6); Lymphocytes % 6.6 %; Mean Corpuscular HGB Conc 31.2 g/dL (31.6-35.5); Mean Corpuscular Hemoglobin 27.7 pg (28.0-33.3); Mean Corpuscular Volume 88.8 fL (83.0-100.0); Mean Platelet Volume 11.3 fL (9.4-12.4); Monocytes # 1.4 K/mcL (0.0-1.3); Monocytes % 11.1 %; Neutrophils # 10.1 K/mcL (1.6-8.9); Platelet Count 315 K/mcL (140-400); Red Cell Distribution Width 14.7 % (11.5-14.5); Segmented Neutrophils % 78.8 %
[2018-04-30 08:22] LABS: Calcium 8.6 mg/dL (8.6-10.3); Magnesium 1.9 mg/dL (1.6-2.6); Phosphorous 3.2 mg/dL (2.7-4.5); Potassium 3.9 mEq/L (3.5-5.1)
[2018-04-30] MEDS: hydrALAZINE 25 MG TABLET PO SCH ×3 (08:45→21:04)
[2018-04-30] MEDS: Diltiazem CD (24hr) 120 MG CAPSULE PO SCH (08:45)
[2018-04-30] MEDS: cloNIDine HCl 0.1 MG TABLET PO SCH ×3 (08:46→21:05)
[2018-04-30] MEDS: Gabapentin 100 MG CAPSULE PO SCH ×2 (08:46→21:05)
[2018-04-30] MEDS: Furosemide 20 MG TABLET PO SCH (08:46)
[2018-04-30] MEDS: Aspirin Enteric Coated 81 MG Tablet PO SCH (08:46)
[2018-04-30] MEDS: Insulin LISPRO 300 UNITS/3 ML VIAL SQ SCH ×3 (08:46→17:04)
[2018-04-30] MEDS: Insulin DETEMIR 100 UNIT/ML X5UNITS SQ SCH (08:49)
[2018-04-30] MEDS ORDERED: Aminoglycoside Consult 1 EACH MC ONE (09:15)
--- NOTE | 2018-04-30 10:41 | Internal Med Progress Note ---
Hospitalist Progress Note - Encounter Date of Encounter: 04/30/18 Time of Encounter: 10:00 - Subjective Interval History: No acute events overnight - Exam Vitals: Temp Pulse Resp BP Pulse Ox 98.3 F 68 15 139/57 95 04/30/18 08:00 04/30/18 08:00 04/30/18 08:00 04/30/18 08:00 04/30/18 08:00 Exam: lethargic Gen - Awake, alert, oriented x 3, no acute distress HEENT - NCAT, PERRLA, EOMI, hearing grossly intact, oropharynx benign CV - RRR, normal S1 and S2, no M/R/G, no BLE edema Resp - Normal WOB, CTAB, no W/R/R GI - Soft, NT/ND, no masses, normal bowel sounds, Skin - Warm, dry, no rashes/lesions/ulcers Psych - Normal mood and affect, no depression or anxiety - Assessment and Plan (1) Sepsis Current Visit: No Status: Acute Assessment and Plan: Pt came in with lethargy and weakness, and was noted to be tachycardic and febrile up to 101.3 with a leukocytosis of 20 on arrival. Obtain blood cultures, urinalysis was WNL. Was recently in the hospital and possible etiology is health care associated pneumonia which may be bacterial. Started on vanc, zosyn and levaquin WBC has trended down and patient has improved considerably. pt has had 4 days of vanc, zosyn and levaquin. Blood cultures results still pending. Will d/c vanc and zosyn and keep on levaquin (2) Anemia Current Visit: No Status: Chronic Assessment and Plan: Likely multifactorial from possible GI bleed, kidney disease, and history of malignancies. Had a negative endoscopy. 04/30. Anemia with acute blood loss r/o GI bleed. Pt reported had dark stools and hemglobin dropped to 6.4 on 04/27. Transfused 2 units PRBC. Started on protonix and GI consulted. repeat hgb 7.4 today. GI plan for push enteroscopy once patient has been off eliquis for 3 days. Today is day 3. Follow GI recs Oncology ordered venofer and recommend GI evaluate colon anastomosis as a source of GI bleed (3) Acute kidney injury superimposed on chronic kidney disease Current Visit: No Status: Acute Assessment and Plan: Monitor creatinine. Got hydrated in the ER. will hold off on fluids for now due to peripheral edema. Started on lasix and creatinine slightly worsened. Hold lasix (4) Liver metastases Current Visit: Yes Status: Acute Assessment and Plan: likely from colon cancer.CT showed enlarging lesions. Oncology consulted and appreciate recs CEA ordered by oncology and outpatient PET/CT imaging recommended to further evaluate liver lesions as well as mass at the ileocolonic anastomosis (5) Pneumonia Current Visit: Yes Status: Acute Assessment and Plan: Likely HCAP from possible bacterial causes. Follow up blood cultures. Continue on levaquin. Vanc and zosyn discontinued today as patient is improving (6) Atrial fibrillation Current Visit: No Status: Chronic Assessment and Plan: Stable. Continue coreg and diltiazem. Apixaban on hold for GI bleed (7) Uncontrolled type 2 diabetes mellitus with insulin therapy Current Visit: No Status: Chronic Assessment and Plan: Resume insulin therapy (8) Abdominal pain Current Visit: Yes Status: Acute Assessment and Plan: Unclear etiology. patient complains of diffuse dull left sided ache. Denies diarrhea and nausea and vomiting. Obtain CT abdomen . Will follow Ct abdomen came back with hepatic lesions likely representing metastases, but otherwise no acute findings (9) Diastolic CHF Current Visit: Yes Status: Acute Assessment and Plan: Has diastolic CHF. Last EF was 55%. No acute exacerbation. Continue home meds, hold lasix (10) DVT prophylaxis Current Visit: No Status: Acute Assessment and Plan: Continue on apixaban - Time Spent with Patient Total time spent is greater than 50% in coordination of care (as documented) at patient's floor/unit and/or counseling patient: Internal Medicine: Result - Labs CBC & Chem 7: 04/30/18 06:20 04/30/18 06:20 Labs: Short CBC 04/29/18 04/30/18 Range/Units 17:33 06:20 WBC 12.9 H (4.3-11.1) K/mcL Hgb 7.3 L 7.2 L (11.5-15.4) g/dL Hct 23.1 L 23.1 L (35.3-44.9) % Plt Count 315 (140-400) K/mcL Neutrophils # 10.1 H (1.6-8.9) K/mcL BMP 04/29/18 04/30/18 00:30 06:20 Sodium 134 L 136 Potassium 3.7 3.9 Chloride 103 104 Carbon Dioxide 25 25 BUN 52 H 48 H Creatinine 2.18 H 2.32 H Glucose 202 H 92 Calcium 8.3 L 8.6 - ABG Interpretation ABG results: PT/INR, D-dimer PT 17.6 Seconds (9.4-12.1) H 04/28/18 01:50 Consult Discharge Plan - Plan Referrals: Geremias Ryan DO [Primary Care Provider] - (1) Sepsis Qualifiers: Sepsis type: Escherichia coli Qualified Code(s): A41.51 - Sepsis due to Escherichia coli [E. coli] (2) Anemia Qualifiers: Anemia type: other cause Other causes of anemia: chronic disease, other Qualified Code(s): D63.8 - Anemia in other chronic diseases classified elsewhere (5) Pneumonia Qualifiers: Pneumonia type: due to unspecified organism Laterality: unspecified laterality Lung location: unspecified part of lung Qualified Code(s): J18.9 - Pneumonia, unspecified organism (6) Atrial fibrillation Qualifiers: Atrial fibrillation type: paroxysmal Qualified Code(s): I48.0 - Paroxysmal atrial fibrillation (8) Abdominal pain Qualifiers: Abdominal location: left lower quadrant Qualified Code(s): R10.32 - Left lower quadrant pain
--- NOTE | 2018-04-30 12:10 | Electrocardiograph Report ---
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
--- NOTE | 2018-04-30 12:11 | Electrocardiograph Report ---
[place] [id number] Test Date: 2018-04-26 Pat Name: Katie Hitchcock Department: [id number] Room: 2NE28 Gender: F Slab Miller Operator: : 1945 Requested By: Carmela Fatima Order Number: [id number] Reading MD: Aleksandar Ramirez Measurements Intervals [place] Rate: 90 P: VT: QRS: 16 QRSD: 111 T: -80 QT: 373 QTc: 457 Interpretive Statements Atrial fibrillation/flutter Incomplete RBBB Nonspecific ST-T changes Electronically Signed On 04-30-2018 12:09:52 EDT by Aleksandar Ramirez
[2018-04-30] MEDS: ALPRAZolam 0.5 MG TABLET PO PRN (17:03)
[2018-04-30 17:18] LABS: Hematocrit 22.5 % (35.3-44.9); Hemoglobin 7.2 g/dL (11.5-15.4)
[2018-04-30] MEDS: Levofloxacin 750 MG/150 ML 750 MG/150 ML BAG IVPB SCH (21:05)
[2018-05-01] MEDS: Insulin DETEMIR 100 UNIT/ML X5UNITS SQ SCH ×3 (00:16→20:52)
[2018-05-01] MEDS: Pantoprazole 40 MG VIAL IVP SCH ×2 (06:27→16:58)
[2018-05-01 06:42] LABS: Basophils # 0.1 K/mcL (0.0-0.2); Basophils % 0.5 %; Eosinophils # 0.4 K/mcL (0.0-0.6); Eosinophils % 2.6 %; Hematocrit 21.5 % (35.3-44.9); Hemoglobin 6.6 g/dL (11.5-15.4); Immature Granulocytes % 1.7 % (0-4); Lymphocytes # 0.8 K/mcL (0.6-4.6); Lymphocytes % 5.4 %; Mean Corpuscular HGB Conc 30.7 g/dL (31.6-35.5); Mean Corpuscular Hemoglobin 27.3 pg (28.0-33.3); Mean Corpuscular Volume 88.8 fL (83.0-100.0); Mean Platelet Volume 10.8 fL (9.4-12.4); Monocytes # 1.6 K/mcL (0.0-1.3); Monocytes % 11.1 %; Neutrophils # 11.3 K/mcL (1.6-8.9); Nucleated Red Blood Cells 0.1 /100 WBC (0); Platelet Count 304 K/mcL (140-400); Red Blood Count 2.42 M/mcL (3.82-4.97); Segmented Neutrophils % 78.7 %
[2018-05-01 07:08] LABS: Calcium 8.5 mg/dL (8.6-10.3); Magnesium 1.9 mg/dL (1.6-2.6); Phosphorous 3.6 mg/dL (2.7-4.5); Potassium 4.1 mEq/L (3.5-5.1)
[2018-05-01] MEDS: Insulin LISPRO 300 UNITS/3 ML VIAL SQ SCH ×3 (08:05→17:08)
[2018-05-01] MEDS: hydrALAZINE 25 MG TABLET PO SCH ×3 (08:06→20:52)
[2018-05-01] MEDS: Aspirin Enteric Coated 81 MG Tablet PO SCH (08:06)
[2018-05-01] MEDS: Furosemide 20 MG TABLET PO SCH (08:07)
[2018-05-01] MEDS: Gabapentin 100 MG CAPSULE PO SCH ×2 (08:07→20:52)
[2018-05-01] MEDS: cloNIDine HCl 0.1 MG TABLET PO SCH ×2 (08:07→17:07)
[2018-05-01] MEDS: Diltiazem CD (24hr) 120 MG CAPSULE PO SCH (08:07)
[2018-05-01] MEDS ORDERED: 0.9 % Sodium Chloride 250 ML ONE ×2 (11:37→18:05)
--- NOTE | 2018-05-01 12:11 | Anesthesia Evaluation PreOp ---
Date of Encounter: 05/01/18 Time of Encounter: 13:47 - Past History Planned Operation: EGD Cardiac History: DE, HTN, Hyperlipidemia, Arrhythmia (paroxysmal A-Fib), Cardiac Surgery (CABG x 3 in 2013), Cardiac Stent (stent x 1 in 2003) Pulmonary History: Denies Any Significant HX WATERSHED TENDER History: Denies Any Significant HX Other Medical History: Renal (H/O renal CA S/P left nephrectomy), Diabetes Type II, Other (H/O colon CA) Anesthesia History: No Prior Anesthetic Complications, Past Anesthesia Alcohol Use: none Drug use: none Medications and Allergies Aspirin [Adult Low Dose Aspirin EC] 81 mg PO DAILY 11/15/15 [History] Insulin ASPART [Novolog Flexpen] 15 unit SQ TIDWM MDD + SLIDING SCALE 11/15/15 [ History] Ferrous Sulfate 325 mg PO DAILY 11/29/16 [History] Hydralazine HCl 100 mg PO TID 11/29/16 [History] [place]-3/Dha/Epa/Fish Oil [Fish Oil 1,000 mg Softgel] 1 cap PO DAILY 11/29/16 [ History] cloNIDine HCl [Clonidine HCl] 0.3 mg PO TID #90 tab 03/05/17 [Rx] Albuterol Sulfate [Proair Hfa] 1 puff IH Q4H PRN #1 inh 05/11/17 [Rx] ALPRAZolam [Xanax 0.5 MG Tablet] 0.5 mg PO BID PRN 08/08/17 [History] Apixaban [Eliquis] 2.5 mg PO BID 08/08/17 [History] Pravastatin Sodium [Pravachol] 80 mg PO QPM 08/08/17 [History] Carvedilol [Coreg] 25 mg PO BIDWM #60 tablet 08/18/17 [Rx] Oxygen 2 l NS AD 09/22/17 [History] Furosemide [Lasix] 40 mg PO DAILY PRN 10/19/17 [History] Dulaglutide [Trulicity] 0.75 mg SQ TH 04/13/18 [History] Gabapentin [Neurontin] 100 mg PO BID 04/13/18 [History] Insulin Degludec [Tresiba Flextouch U-200] 62 unit SQ HS 04/13/18 [History] dilTIAZem HCl [Diltiazem 24Hr ER] 120 mg PO DAILY 04/13/18 [History] Mupirocin Calcium [Bactroban Nasal] 1 gm NS BID 5 Days #1 oint...g. 04/16/18 [Rx ] 3 Allergy/AdvReac Type Severity Reaction Status Date / Time Sulfa (Sulfonamide Allergy Severe Swelling Verified 04/10/18 15:11 Antibiotics) of Lip/Tongue/Throat - Meds/Allergy Pre-op Review Medications Reviewed: Yes Allergies Reviewed: Yes Beta Blockers on Current Med List: Yes If Beta Blockers taken, Date/Time (Last Dose taken): 05/01/2018 at 0807 Anesthesia Results - Labs 05/01/18 06:19 05/01/18 06:19 - Imaging EKG: report reviewed (04/26/2018 Atrial fibrillation/flutter Incomplete RBBB Nonspecific ST-T changes) Additional studies: 04/13/2018 Limited Echo Impressions: LVEF 55%. Normal LV chamber size, wall thickness and function. Atypical septal motion noted. No evidence of a PFO with agitated saline contrast. 12/03/2017 Echo Impressions: LVEF 55%. Normal LV chamber size, wall thickness and function. Atypical septal motion consistent with post-operative status. Indeterminate diastolic function. Mildly dilated and hypokinetic right ventricle. Mild mitral regurgitation. Mild tricuspid regurgitation. Moderate-severe pulmonary hypertension. Estimated RVSP is 53-63 mmHg, including an estimated RA pressure of 10-20 mmHg. Anesthesia Exam Vital Signs/O2 Sat/Glucose, Most Recent Temp Pulse Resp BP Pulse Ox 99.2 F 63 20 137/63 96 05/01/18 11:46 05/01/18 11:46 05/01/18 11:46 05/01/18 11:46 05/01/18 11:46 Blood Glucose* 110 Height: 5'/1.52m Weight: 201 lbs/91.6 kg NPO (# of Hours): 8 Pain Scale: 0 Pain Scale Used: Numeric (1 - 10) - HEENT Pupil (Motor): EOMI Mallampati: III Teeth: Normal, Missing Oral Opening: Greater than 3 - WATERSHED TENDER LOC: Oriented WATERSHED TENDER Motor: Normal RUE, Normal LUE, Normal RLE, Normal LLE, Normal Face WATERSHED TENDER Sensory: Normal: RUE, LUE, RLE, LLE, Face - Cardiac Rhythm: Irregular Murmur: None - Pulmonary Breath Sounds: bilateral Clear Respiratory Effort: Symmetrical Anesthesia Assess/Plan ASA Score: 4 Modified [place] Scale for Level of Consciousness: Cooperative, oriented, and tranquil Anesthetic Plan: MAC Monitoring Plan: Standard Monitors
[2018-05-01] MEDS ORDERED: *HR* Propofol 200 MG/20 ML VIAL IVP ONE (13:23)
--- NOTE | 2018-05-01 14:46 | Internal Med Progress Note ---
Hospitalist Progress Note - Encounter Date of Encounter: 05/01/18 Time of Encounter: 09:45 - Subjective Interval History: Patient reports feeling well. Denies chest or abdominal pain. No nausea, vomiting, diarrhea. Reports melena, she is also on iron supplements. Awaiting EGD today. - Exam Vitals: Temp Pulse Resp BP Pulse Ox 98.3 F 64 20 198/80 96 05/01/18 14:20 05/01/18 14:20 05/01/18 14:20 05/01/18 14:20 05/01/18 14:20 Exam: General: Well-developed female lying comfortably in bed in no acute distress Skin: Warm and supple Chest: Normal thoracic expansion. Normal breath sounds. Clear to auscultation. Heart: Normal S1 & S2; irregular rate; Abdomen: Non-distended, soft; mild LLQ tenderness to deep palpation; Extremities: B/L 2+ pedal edema. Neurological: Awake, alert and oriented to person, place. No focal deficits. - Assessment and Plan (1) Pneumonia Current Visit: Yes Status: Suspected Assessment and Plan: Chest x-ray showed bibasilar opacities, could be infiltrates versus edema. Patient also presented with fever, tachycardia, weakness and leukocytosis, empirically being treated for sepsis. Blood cultures remain negative. She was treated with broad-spectrum IV antibiotics-vancomycin, Zosyn and Levaquin initially, currently De-escalated to Levaquin. Continues to have stable mild leukocytosis, around 14. Continue supplemental oxygen and supportive care. PT/OT evaluation; (2) Sepsis Current Visit: Yes Status: Suspected Assessment and Plan: Plan as above. (3) Anemia Current Visit: Yes Status: Chronic Assessment and Plan: Acute on chronic anemia. Multifactorial-iron deficiency, chronic kidney disease , possible GI bleed, sepsis. Received 2 units blood transfusion during this admission. Hemoglobin noted to drop to 6.6 today. Will transfuse 2 units PRBC , continue to monitor closely. Plan for push enteroscopy by GI today. (4) DVT prophylaxis Current Visit: No Status: Acute Assessment and Plan: on EPCDs; avoid medical anticoagulation due to anemia; (5) Uncontrolled type 2 diabetes mellitus with insulin therapy Current Visit: Yes Status: Chronic Assessment and Plan: Blood sugars noted to be better controlled. Continue basal bolus insulin regimen, Accu-Chek blood glucose monitoring, diabetic diet. (6) Acute kidney injury superimposed on chronic kidney disease Current Visit: Yes Status: Acute Assessment and Plan: Serum creatinine stable, 2.24 today. avoid nephrotoxic agents; (7) Atrial fibrillation Current Visit: Yes Status: Chronic Assessment and Plan: Currently rate controlled. Continue telemetry monitoring, beta amos; not on anticoagulation, not a candidate due to ongoing anemia. (8) Diastolic CHF Current Visit: Yes Status: Chronic (9) Colon cancer metastasized to liver Current Visit: Yes Status: Chronic Assessment and Plan: Oncology consult appreciated; recommend outpatient PET-CT to further evaluate new liver mass and possible mass at ileocolonic anastomosis; - Time Spent with Patient Total time spent is greater than 50% in coordination of care (as documented) at patient's floor/unit and/or counseling patient: Plan of Care Discussed with: patient Internal Medicine: Result - Labs CBC & Chem 7: 05/01/18 06:19 05/01/18 06:19 Labs: Short CBC 04/30/18 05/01/18 Range/Units 17:04 06:19 WBC 14.4 H (4.3-11.1) K/mcL Hgb 7.2 L 6.6 L (11.5-15.4) g/dL Hct 22.5 L 21.5 L (35.3-44.9) % Plt Count 304 (140-400) K/mcL Neutrophils # 11.3 H (1.6-8.9) K/mcL BMP 05/01/18 06:19 Sodium 134 L Potassium 4.1 Chloride 104 Carbon Dioxide 21 L BUN 49 H Creatinine 2.24 H Glucose 202 H Calcium 8.5 L - ABG Interpretation ABG results: PT/INR, D-dimer PT 17.6 Seconds (9.4-12.1) H 04/28/18 01:50 Consult Discharge Plan - Plan Referrals: Geremias Ryan DO [Primary Care Provider] - (1) Pneumonia Qualifiers: Pneumonia type: due to unspecified organism Laterality: unspecified laterality Lung location: unspecified part of lung Qualified Code(s): J18.9 - Pneumonia, unspecified organism (2) Sepsis Qualifiers: Sepsis type: sepsis due to unspecified organism Qualified Code(s): A41.9 - Sepsis, unspecified organism (3) Anemia Qualifiers: Anemia type: other cause Other causes of anemia: chronic disease, other Qualified Code(s): D63.8 - Anemia in other chronic diseases classified elsewhere (7) Atrial fibrillation Qualifiers: Atrial fibrillation type: paroxysmal Qualified Code(s): I48.0 - Paroxysmal atrial fibrillation (8) Diastolic CHF Qualifiers: Heart failure chronicity: chronic Qualified Code(s): I50.32 - Chronic diastolic (congestive) heart failure
--- NOTE | 2018-05-01 15:31 | Oncology Inp Progress Note ---
Addendum entered and electronically signed by Key Watson CNP 05/01/18 18:38 : HGB 6.6- would recommend stopping Eliquis and ASA secondary to probable GI bleeding. Would consider colonoscopy. To rule out colon lesion. Original Note: <Key Watson - Last Filed: 05/01/18 15:24> Date of Encounter: 05/01/18 Time of Encounter: 15:24 (1) History of colon cancer Current Visit: No Status: Acute Assessment and plan: CEA 9.3, CT indicates multiple liver lesions. Discussed with patient and daughter plan to have further workup as outpatient with PET scan. Then f/u with Dr Alvarado. (2) MARANDA (iron deficiency anemia) Current Visit: No Status: Acute Assessment and plan: Recieved IV iron. today hgb 6.6. Receiving blood transfusion. Upper endoscopy today- mild localized inflammation and friability of prepyloric area of stomach. Biopsy taken. Denies further bleeding pr rectum. Qualifiers: Iron deficiency anemia type: other iron deficiency Qualified Code(s): D50.8 - Other iron deficiency anemias (3) Anemia Current Visit: Yes Status: Chronic Qualifiers: Anemia type: other cause Other causes of anemia: chronic disease, other Qualified Code(s): D63.8 - Anemia in other chronic diseases classified elsewhere Oncology: Subj Interval history: Patient is very drowsy. Just returned for having endoscopy. She continues to feel weak. Denies further bleeding per rectum. Had 1 unit packed cells today, will receive 1 additional. HGB 6.6. Daughter at bedside, understands CEA is rising, most recently 9.[address] scans indicate multiple liver lesions. We discussed further investigation as outpatient per PET scan. - Constitutional Vitals: Vital Signs Temp Pulse Resp BP Pulse Ox 05/01/18 14:47 98.3 F 64 20 198/80 96 05/01/18 14:20 98.3 F 64 20 198/80 96 05/01/18 11:46 99.2 F 63 20 137/63 96 05/01/18 11:42 98.0 F 62 18 140/66 98 05/01/18 11:39 98 F 62 16 140/66 98 05/01/18 07:46 98.4 F 66 16 151/69 100 05/01/18 04:50 98.1 F 66 16 124/51 100 05/01/18 00:22 98.0 F 62 16 139/49 99 04/30/18 21:50 98.6 F 62 16 144/58 100 04/30/18 16:29 98.2 F 63 18 146/58 Intake and Output 04/30/18 05/01/18 05/01/18 23:59 07:59 15:59 Intake Total 0 / 0 0 / 0 350 / 350 Output Total 0 / 0 0 / 0 Balance 0 / 0 0 / 0 350 / 350 Intake: Oral 0 / 0 0 / 0 Blood Product 350 / 350 Rbcs Leuko Poor As-3 2nd Unit 350 / 350 [id number] Output: Urine 0 / 0 0 / 0 Other: Stool Size Moderate Stool Consistency liquid Stool Color Black # Urine Diapers 1 1 # Bowel Movement Diapers 1 Weight 91.6 kg Blood Glucose* 301 189 110 Patient Weight 05/01/18 23:59 Weight 91.6 kg General appearance: no acute distress - Neck Neck exam: Present: normal inspection - Respiratory Respiratory exam: Present: CTAB (O2 per 2LPM) - Cardiovascular Cardiovascular exam: Present: RRR - GI/Abdominal GI/Abdominal exam: Present: distended, soft - Extremities Exam Extremities exam: Present: pedal edema (bilateral) - Psychiatric Psychiatric exam: Present: normal affect Oncology: Obj Data - Labs CBC & Chem 7: 05/01/18 06:19 05/01/18 06:19 Labs: Laboratory Results - last 24 hr 04/30/18 04/30/18 04/30/18 11:45 16:30 17:04 WBC RBC Hgb 7.2 L Hct 22.5 L MCV MCH MCHC RDW Plt Count MPV Immature Gran % Seg Neutrophils % Lymphocytes % Monocytes % Eosinophils % Basophils % Neutrophils # Lymphocytes # Monocytes # Eosinophils # Basophils # Nucleated RBCs/100 WBC Sodium Potassium Chloride Carbon Dioxide BUN Creatinine Est GFR ( Amer) Est GFR (Non-Af Amer) BUN/Creatinine Ratio Glucose POC Glucose 273 H 315 H Calculated Osmolality Calcium Phosphorus Magnesium Vancomycin Trough Blood Type Antibody Screen Crossmatch 04/30/18 04/30/18 05/01/18 17:04 21:55 06:19 WBC 14.4 H RBC 2.42 L Hgb 6.6 L Hct 21.5 L MCV 88.8 MCH 27.3 L MCHC 30.7 L RDW 15.0 H Plt Count 304 MPV 10.8 Immature Gran % 1.7 Seg Neutrophils % 78.7 Lymphocytes % 5.4 Monocytes % 11.1 Eosinophils % 2.6 Basophils % 0.5 Neutrophils # 11.3 H Lymphocytes # 0.8 Monocytes # 1.6 H Eosinophils # 0.4 Basophils # 0.1 Nucleated RBCs/100 WBC 0.1 H Sodium Potassium Chloride Carbon Dioxide BUN Creatinine Est GFR ( Amer) Est GFR (Non-Af Amer) BUN/Creatinine Ratio Glucose POC Glucose 301 H Calculated Osmolality Calcium Phosphorus Magnesium Vancomycin Trough 22 H Blood Type Antibody Screen Crossmatch 05/01/18 05/01/18 06:19 09:51 WBC RBC Hgb Hct MCV MCH MCHC RDW Plt Count MPV Immature Gran % Seg Neutrophils % Lymphocytes % Monocytes % Eosinophils % Basophils % Neutrophils # Lymphocytes # Monocytes # Eosinophils # Basophils # Nucleated RBCs/100 WBC Sodium 134 L Potassium 4.1 Chloride 104 Carbon Dioxide 21 L BUN 49 H Creatinine 2.24 H Est GFR ( Amer) 26 L Est GFR (Non-Af Amer) 21 L BUN/Creatinine Ratio 22 Glucose 202 H POC Glucose Calculated Osmolality 297 Calcium 8.5 L Phosphorus 3.6 Magnesium 1.9 Vancomycin Trough Blood Type O POSITIVE Antibody Screen NEGATIVE Crossmatch See Detail - ABG Interpretation ABG results: PT/INR, D-dimer PT 17.6 Seconds (9.4-12.1) H 04/28/18 01:50 Consult Discharge Plan - Plan Referrals: Geremias Ryan DO [Primary Care Provider] - <Harvey Cevallos - Last Filed: 05/01/18 22:23> Date of Encounter: 05/01/18 (1) Abdominal pain Current Visit: Yes Status: Acute Qualifiers: Abdominal location: left lower quadrant Qualified Code(s): R10.32 - Left lower quadrant pain (2) History of colon cancer Current Visit: No Status: Acute (3) MARANDA (iron deficiency anemia) Current Visit: No Status: Acute Qualifiers: Iron deficiency anemia type: other iron deficiency Qualified Code(s): D50.8 - Other iron deficiency anemias (4) Renal cell carcinoma of left kidney Current Visit: No Status: Acute (5) CKD (chronic kidney disease) stage 3, GFR 30-59 ml/min Current Visit: No Status: Chronic - Constitutional Vitals: Vital Signs Temp Pulse Resp BP Pulse Ox 05/01/18 22:02 98.9 F 67 16 95 05/01/18 19:59 98.0 F 64 18 150/48 94 05/01/18 18:16 97.8 F 64 20 135/47 95 05/01/18 18:10 97.9 F 61 20 141/65 96 05/01/18 16:30 97.9 F 72 18 174/79 100 05/01/18 14:47 98.3 F 64 20 198/80 96 05/01/18 14:20 98.3 F 64 20 198/80 96 05/01/18 11:46 99.2 F 63 20 137/63 96 05/01/18 11:42 98.0 F 62 18 140/66 98 05/01/18 11:39 98 F 62 16 140/66 98 05/01/18 07:46 98.4 F 66 16 151/69 100 05/01/18 04:50 98.1 F 66 16 124/51 100 05/01/18 00:22 98.0 F 62 16 139/49 99 Intake and Output 05/01/18 05/01/18 05/02/18 08:59 16:59 00:59 Intake Total 0 / 0 350 / 350 350 / 350 Balance 0 / 0 350 / 350 350 / 350 Intake: Oral 0 / 0 0 / 0 Blood Product 350 / 350 350 / 350 Rbcs Leuko Poor As-1 Unit 350 / 350 [id number] Rbcs Leuko Poor As-3 2nd Unit 350 / 350 [id number] Other: # Voids 0 # Urine Diapers 1 1 2 Blood Glucose* 189 98 191 Oncology: Obj Data - Labs CBC & Chem 7: 05/01/18 06:19 05/01/18 06:19 Labs: Laboratory Results - last 24 hr 04/30/18 04/30/18 04/30/18 11:45 16:30 21:55 WBC RBC Hgb Hct MCV MCH MCHC RDW Plt Count MPV Immature Gran % Seg Neutrophils % Lymphocytes % Monocytes % Eosinophils % Basophils % Neutrophils # Lymphocytes # Monocytes # Eosinophils # Basophils # Nucleated RBCs/100 WBC Sodium Potassium Chloride Carbon Dioxide BUN Creatinine Est GFR ( Amer) Est GFR (Non-Af Amer) BUN/Creatinine Ratio Glucose POC Glucose 273 H 315 H 301 H Calculated Osmolality Calcium Phosphorus Magnesium Blood Type Antibody Screen Crossmatch 05/01/18 05/01/18 05/01/18 06:19 06:19 07:50 WBC 14.4 H RBC 2.42 L Hgb 6.6 L Hct 21.5 L MCV 88.8 MCH 27.3 L MCHC 30.7 L RDW 15.0 H Plt Count 304 MPV 10.8 Immature Gran % 1.7 Seg Neutrophils % 78.7 Lymphocytes % 5.4 Monocytes % 11.1 Eosinophils % 2.6 Basophils % 0.5 Neutrophils # 11.3 H Lymphocytes # 0.8 Monocytes # 1.6 H Eosinophils # 0.4 Basophils # 0.1 Nucleated RBCs/100 WBC 0.1 H Sodium 134 L Potassium 4.1 Chloride 104 Carbon Dioxide 21 L BUN 49 H Creatinine 2.24 H Est GFR ( Amer) 26 L Est GFR (Non-Af Amer) 21 L BUN/Creatinine Ratio 22 Glucose 202 H POC Glucose 189 H Calculated Osmolality 297 Calcium 8.5 L Phosphorus 3.6 Magnesium 1.9 Blood Type Antibody Screen Crossmatch 05/01/18 05/01/18 05/01/18 09:51 11:38 16:30 WBC RBC Hgb Hct MCV MCH MCHC RDW Plt Count MPV Immature Gran % Seg Neutrophils % Lymphocytes % Monocytes % Eosinophils % Basophils % Neutrophils # Lymphocytes # Monocytes # Eosinophils # Basophils # Nucleated RBCs/100 WBC Sodium Potassium Chloride Carbon Dioxide BUN Creatinine Est GFR ( Amer) Est GFR (Non-Af Amer) BUN/Creatinine Ratio Glucose POC Glucose 110 H 98 Calculated Osmolality Calcium Phosphorus Magnesium Blood Type O POSITIVE Antibody Screen NEGATIVE Crossmatch See Detail - ABG Interpretation ABG results: PT/INR, D-dimer PT 17.6 Seconds (9.4-12.1) H 04/28/18 01:50 Inpatient Charges Provider: Dr. Debi Cevallos Follow Up: [id number] - Attending Attestation I examined this patient and my medical decision-making was reviewed with the Advanced Practice Nurse. I agree with the documented findings, disposition and treatment plan as described except to the extent set forth below. CEA is elevated and is concerning for recurrent cancer. PET/CT will better delineate extent of disease, and this will be arranged after d/c. She is actively bleeding, however. Discontinue Eliquis/ASA indefinitely. Would consider colonoscopy to evaluate anastomosis as possible site of hemorrhage. Have transfused 2 U PRBC today. S/P donavan.
[2018-05-01 23:32] LABS: Hemoglobin 8.6 g/dL (11.5-15.4)
[2018-05-02 06:11] LABS: Hematocrit 25.8 % (35.3-44.9); Hemoglobin 8.3 g/dL (11.5-15.4)
[2018-05-02] MEDS: Pantoprazole 40 MG VIAL IVP SCH (06:11)
[2018-05-02 06:12] LABS: Basophils # 0.1 K/mcL (0.0-0.2); Basophils % 0.4 %; Eosinophils # 0.5 K/mcL (0.0-0.6); Eosinophils % 3.1 %; Hematocrit 26.1 % (35.3-44.9); Hemoglobin 8.3 g/dL (11.5-15.4); Immature Granulocytes % 1.5 % (0-4); Lymphocytes # 0.8 K/mcL (0.6-4.6); Lymphocytes % 5.7 %; Mean Corpuscular HGB Conc 31.8 g/dL (31.6-35.5); Mean Corpuscular Volume 88.2 fL (83.0-100.0); Mean Platelet Volume 10.7 fL (9.4-12.4); Monocytes # 1.5 K/mcL (0.0-1.3); Neutrophils # 11.6 K/mcL (1.6-8.9); Platelet Count 278 K/mcL (140-400); Red Blood Count 2.96 M/mcL (3.82-4.97); Red Cell Distribution Width 15.6 % (11.5-14.5); Segmented Neutrophils % 79.3 %
[2018-05-02 06:30] LABS: Calcium 8.6 mg/dL (8.6-10.3); Magnesium 1.7 mg/dL (1.6-2.6); Phosphorous 3.6 mg/dL (2.7-4.5); Potassium 3.8 mEq/L (3.5-5.1)
--- NOTE | 2018-05-02 08:53 | Oncology Inp Progress Note ---
<Jesu Dhillon - Last Filed: 05/02/18 17:57> Date of Encounter: 05/02/18 Time of Encounter: 08:50 (1) Malignant tumor of ascending colon Current Visit: No Status: Chronic Assessment and plan: Status post surgery with anastomosis. Given CT findings and elevated CEA, concern for recurrence. Plan for PET/CT as an outpatient to further characterize possible recurrence. We will discuss with GI, would recommend colonoscopy to evaluate anastomotic area. (2) Anemia Current Visit: Yes Status: Chronic Assessment and plan: Hemoglobin stable at 8.3 this morning. Patient did have a dark bowel movement overnight however no evidence of active bleeding. This is likely old blood. Continue to monitor for signs of active bleeding and CBC daily. s/p venfer. Hold anticoagulation. Recommend colonoscopy as discussed above. Qualifiers: Anemia type: other cause Other causes of anemia: chronic disease, other Qualified Code(s): D63.8 - Anemia in other chronic diseases classified elsewhere Oncology: Subj Interval history: Patient seen and examined at bedside. Patient reports an episode of dark stools overnight but otherwise denies any source of bleeding. Otherwise has no complaints, denies pain, reports good appetite. - Constitutional Vitals: Vital Signs Temp Pulse Resp BP Pulse Ox 05/02/18 08:25 98.1 F 85 19 98 05/02/18 04:51 97.5 F L 62 18 143/80 98 05/02/18 00:31 98.2 F 67 18 148/56 99 05/01/18 22:02 98.9 F 67 16 95 05/01/18 19:59 98.0 F 64 18 150/48 94 05/01/18 18:16 97.8 F 64 20 135/47 95 05/01/18 18:10 97.9 F 61 20 141/65 96 05/01/18 16:30 97.9 F 72 18 174/79 100 05/01/18 14:47 98.3 F 64 20 198/80 96 05/01/18 14:20 98.3 F 64 20 198/80 96 05/01/18 11:46 99.2 F 63 20 137/63 96 05/01/18 11:42 98.0 F 62 18 140/66 98 05/01/18 11:39 98 F 62 16 140/66 98 Intake and Output 05/01/18 05/02/1805/02/18 23:59 07:59 15:59 Intake Total 350 / 350 0 / 0 Balance 350 / 350 0 / 0 Intake: Oral 0 / 0 0 / 0 Blood Product 350 / 350 Rbcs Leuko Poor As-1 Unit 350 / 350 [id number] Other: Stool Size Copious Stool Consistency loose Stool Color Black Bright Red Blood # Voids 0 0 # Urine Diapers 2 1 # Bowel Movements 1 # Bowel Movement Diapers 1 Weight 95.4 kg Blood Glucose* 191 147 Patient Weight 05/02/18 23:59 Weight 95.4 kg General appearance: no acute distress - Respiratory Respiratory exam: Present: CTAB. Absent: rales, rhonchi - Cardiovascular Cardiovascular exam: Present: RRR. Absent: diastolic murmur, systolic murmur - GI/Abdominal GI/Abdominal exam: Present: normal bowel sounds, soft. Absent: tenderness - Extremities Exam Extremities exam: Present: normal inspection. Absent: pedal edema, tenderness - Neurological Exam Neurological exam: Present: alert, oriented X3 Oncology: Obj Data - Labs CBC & Chem 7: 05/02/18 05:43 05/02/18 05:43 Labs: Laboratory Results - last 24 hr 05/01/18 05/01/18 05/01/18 07:50 09:51 11:38 WBC RBC Hgb Hct MCV MCH MCHC RDW Plt Count MPV Immature Gran % Seg Neutrophils % Lymphocytes % Monocytes % Eosinophils % Basophils % Neutrophils # Lymphocytes # Monocytes # Eosinophils # Basophils # Sodium Potassium Chloride Carbon Dioxide BUN Creatinine Est GFR ( Amer) Est GFR (Non-Af Amer) BUN/Creatinine Ratio Glucose POC Glucose 189 H 110 H Calculated Osmolality Calcium Phosphorus Magnesium Blood Type O POSITIVE Antibody Screen NEGATIVE Crossmatch See Detail 05/01/18 05/01/18 05/01/18 16:30 20:02 22:49 WBC RBC Hgb 8.6 L D Hct 27.0 L MCV MCH MCHC RDW Plt Count MPV Immature Gran % Seg Neutrophils % Lymphocytes % Monocytes % Eosinophils % Basophils % Neutrophils # Lymphocytes # Monocytes # Eosinophils # Basophils # Sodium Potassium Chloride Carbon Dioxide BUN Creatinine Est GFR ( Amer) Est GFR (Non-Af Amer) BUN/Creatinine Ratio Glucose POC Glucose 98 191 H Calculated Osmolality Calcium Phosphorus Magnesium Blood Type Antibody Screen Crossmatch 05/02/18 05/02/18 05/02/18 05:43 05:43 05:43 WBC 14.7 H RBC 2.96 L Hgb 8.3 L 8.3 L Hct 26.1 L 25.8 L MCV 88.2 MCH 28.0 MCHC 31.8 RDW 15.6 H Plt Count 278 MPV 10.7 Immature Gran % 1.5 Seg Neutrophils % 79.3 Lymphocytes % 5.7 Monocytes % 10.0 Eosinophils % 3.1 Basophils % 0.4 Neutrophils # 11.6 H Lymphocytes # 0.8 Monocytes # 1.5 H Eosinophils # 0.5 Basophils # 0.1 Sodium 136 Potassium 3.8 Chloride 105 Carbon Dioxide 24 BUN 45 H Creatinine 1.92 H Est GFR ( Amer) 31 L Est GFR (Non-Af Amer) 26 L BUN/Creatinine Ratio 23 Glucose 116 H POC Glucose Calculated Osmolality 295 Calcium 8.6 Phosphorus 3.6 Magnesium 1.7 Blood Type Antibody Screen Crossmatch - ABG Interpretation ABG results: PT/INR, D-dimer PT 17.6 Seconds (9.4-12.1) H 04/28/18 01:50 Consult Discharge Plan - Plan Referrals: Geremias Ryan DO [Primary Care Provider] - <Harvey Cevallos S - Last Filed: 05/02/18 22:27> Date of Encounter: 05/02/18 (1) Abdominal pain Current Visit: Yes Status: Acute Qualifiers: Abdominal location: left lower quadrant Qualified Code(s): R10.32 - Left lower quadrant pain (2) History of colon cancer Current Visit: No Status: Acute (3) MARANDA (iron deficiency anemia) Current Visit: No Status: Acute Qualifiers: Iron deficiency anemia type: other iron deficiency Qualified Code(s): D50.8 - Other iron deficiency anemias (4) Renal cell carcinoma of left kidney Current Visit: No Status: Acute (5) CKD (chronic kidney disease) stage 3, GFR 30-59 ml/min Current Visit: No Status: Chronic - Constitutional Vitals: Vital Signs Temp Pulse Resp BP Pulse Ox 05/02/18 19:28 98.0 F 63 20 144/72 97 05/02/18 15:53 98.5 F 64 18 139/57 95 05/02/18 12:45 98.6 F 63 17 136/52 90 05/02/18 08:25 98.1 F 85 19 98 05/02/18 04:51 97.5 F L 62 18 143/80 98 05/02/18 00:31 98.2 F 67 18 148/56 99 Intake and Output 05/02/18 05/02/18 05/03/18 08:59 16:59 00:59 Intake Total 0 / 0 780 / 780 540 / 540 Balance 0 / 0 780 / 780 540 / 540 Intake: Oral 0 / 0 780 / 780 540 / 540 Other: Meal Lunch Dinner Percent of Meal Consumed 100% 95% Stool Size Copious Large Stool Consistency loose Stool Color Black Blood Tinged Bright Red Blood # Voids 0 # Urine Diapers 1 # Bowel Movements 1 # Bowel Movement Diapers 1 1 Blood Glucose* 147 267 320 Oncology: Obj Data - Labs CBC & Chem 7: 05/02/18 05:43 05/02/18 05:43 Labs: Laboratory Results - last 24 hr 05/01/18 05/01/18 05/02/18 20:02 22:49 05:43 WBC 14.7 H RBC 2.96 L Hgb 8.6 L D 8.3 L Hct 27.0 L 26.1 L MCV 88.2 MCH 28.0 MCHC 31.8 RDW 15.6 H Plt Count 278 MPV 10.7 Immature Gran % 1.5 Seg Neutrophils % 79.3 Lymphocytes % 5.7 Monocytes % 10.0 Eosinophils % 3.1 Basophils % 0.4 Neutrophils # 11.6 H Lymphocytes # 0.8 Monocytes # 1.5 H Eosinophils # 0.5 Basophils # 0.1 Sodium Potassium Chloride Carbon Dioxide BUN Creatinine Est GFR ( Amer) Est GFR (Non-Af Amer) BUN/Creatinine Ratio Glucose POC Glucose 191 H Calculated Osmolality Calcium Phosphorus Magnesium 05/02/18 05/02/18 05:43 05:43 WBC RBC Hgb 8.3 L Hct 25.8 L MCV MCH MCHC RDW Plt Count MPV Immature Gran % Seg Neutrophils % Lymphocytes % Monocytes % Eosinophils % Basophils % Neutrophils # Lymphocytes # Monocytes # Eosinophils # Basophils # Sodium 136 Potassium 3.8 Chloride 105 Carbon Dioxide 24 BUN 45 H Creatinine 1.92 H Est GFR ( Amer) 31 L Est GFR (Non-Af Amer) 26 L BUN/Creatinine Ratio 23 Glucose 116 H POC Glucose Calculated Osmolality 295 Calcium 8.6 Phosphorus 3.6 Magnesium 1.7 - ABG Interpretation ABG results: PT/INR, D-dimer PT 17.6 Seconds (9.4-12.1) H 04/28/18 01:50 Inpatient Charges Provider: Dr. Debi Cevallos Follow Up: [id number] - Attending Attestation I examined this patient and my medical decision-making was reviewed with the resident. I agree with the documented findings, disposition and treatment plan as described except to the extent set forth below. She received 2 U PRBC yesterday and h/h with appropriate response. Will follow H/H tomorrow AM. If stable, I think it is reasonable to d/c home. Will arrange for outpatient PET/ CT and f/u with Dr. Alvarado for next week. This will better evaluate liver lesions and ileocolonic anastamotic findings. Concern for recurrent cancer given elevated CEA. We will otherwise sign off. Please call with concerns or questions.
[2018-05-02] MEDS: hydrALAZINE 25 MG TABLET PO SCH ×3 (08:57→21:35)
[2018-05-02] MEDS: Aspirin Enteric Coated 81 MG Tablet PO SCH (08:57)
[2018-05-02] MEDS: Gabapentin 100 MG CAPSULE PO SCH ×2 (08:57→21:31)
[2018-05-02] MEDS: Furosemide 20 MG TABLET PO SCH (08:58)
[2018-05-02] MEDS: cloNIDine HCl 0.1 MG TABLET PO SCH ×3 (08:58→21:30)
[2018-05-02] MEDS: Diltiazem CD (24hr) 120 MG CAPSULE PO SCH (08:59)
[2018-05-02] MEDS: Insulin LISPRO 300 UNITS/3 ML VIAL SQ SCH ×3 (09:00→17:29)
[2018-05-02] MEDS: ALPRAZolam 0.5 MG TABLET PO PRN (10:13)
--- NOTE | 2018-05-02 17:10 | Internal Med Progress Note ---
Hospitalist Progress Note - Encounter Date of Encounter: 05/03/18 Time of Encounter: 10:30 - Subjective Interval History: Patient reports feeling well. Denies chest or abdominal pain, nausea, vomiting, melena/hematochezia; - Exam Vitals: Temp Pulse Resp BP Pulse Ox 98.5 F 64 18 139/57 95 05/02/18 15:53 05/02/18 15:53 05/02/18 15:53 05/02/18 15:53 05/02/18 15:53 Exam: General: Well-developed female lying sitting up in chair, in no acute distress Skin: Warm and supple Chest: Normal thoracic expansion. Normal breath sounds. Clear to auscultation. Heart: Normal S1 & S2; irregular rate; Abdomen: Non-distended, soft; nontender; Extremities: B/L 2+ pedal edema. Neurological: Awake, alert and oriented to person, place. No focal deficits. - Assessment and Plan (1) Pneumonia Current Visit: Yes Status: Suspected Assessment and Plan: Chest x-ray showed bibasilar opacities, could be infiltrates versus edema. Patient presented with fever, tachycardia, weakness and leukocytosis, empirically being treated for sepsis. Blood cultures remain negative. She was treated with broad-spectrum IV antibiotics-vancomycin, Zosyn and Levaquin initially, then De-escalated to Levaquin, to complete 7 days of therapy today. Continues to have stable mild leukocytosis, around 14. Continue supplemental oxygen and supportive care. PT/OT evaluation; (2) Sepsis Current Visit: Yes Status: Suspected (3) Anemia Current Visit: Yes Status: Chronic Assessment and Plan: Acute on chronic anemia. Multifactorial-iron deficiency, chronic kidney disease , possible GI bleed, sepsis. Received 4 units blood transfusion during this admission. Hemoglobin improved to >8 today. (4) DVT prophylaxis Current Visit: Yes Status: Acute (5) Uncontrolled type 2 diabetes mellitus with insulin therapy Current Visit: Yes Status: Chronic (6) Acute kidney injury superimposed on chronic kidney disease Current Visit: Yes Status: Acute (7) Atrial fibrillation Current Visit: Yes Status: Chronic Assessment and Plan: Currently rate controlled. Continue telemetry monitoring, beta amos; held ASA and Eliquis due to ongoing anemia. explained risks and benefits to patient, agrees to holding it for now; (8) Diastolic CHF Current Visit: Yes Status: Chronic (9) Colon cancer metastasized to liver Current Visit: Yes Status: Chronic Assessment and Plan: Oncology consult appreciated; recommend outpatient PET-CT to further evaluate new liver mass and possible mass at ileocolonic anastomosis; highly recommend Colonoscopy to r/o new cancer lesions, to d/w GI per notes; - Time Spent with Patient Total time spent is greater than 50% in coordination of care (as documented) at patient's floor/unit and/or counseling patient: Plan of Care Discussed with: patient Internal Medicine: Result - Labs CBC & Chem 7: 05/03/18 04:31 05/03/18 04:31 Labs: Short CBC 05/01/18 05/02/18 05/02/18 Range/Units 22:49 05:43 05:43 WBC 14.7 H (4.3-11.1) K/mcL Hgb 8.6 L D 8.3 L 8.3 L (11.5-15.4) g/dL Hct 27.0 L 26.1 L 25.8 L (35.3-44.9) % Plt Count 278 (140-400) K/mcL Neutrophils # 11.6 H (1.6-8.9) K/mcL BMP 05/02/18 05:43 Sodium 136 Potassium 3.8 Chloride 105 Carbon Dioxide 24 BUN 45 H Creatinine 1.92 H Glucose 116 H Calcium 8.6 - ABG Interpretation ABG results: PT/INR, D-dimer PT 17.6 Seconds (9.4-12.1) H 04/28/18 01:50 Consult Discharge Plan - Plan Referrals: Geremias Ryan DO [Primary Care Provider] - (1) Pneumonia Qualifiers: Pneumonia type: due to unspecified organism Laterality: unspecified laterality Lung location: unspecified part of lung Qualified Code(s): J18.9 - Pneumonia, unspecified organism (2) Sepsis Qualifiers: Sepsis type: sepsis due to unspecified organism Qualified Code(s): A41.9 - Sepsis, unspecified organism (3) Anemia Qualifiers: Anemia type: other cause Other causes of anemia: chronic disease, other Qualified Code(s): D63.8 - Anemia in other chronic diseases classified elsewhere (7) Atrial fibrillation Qualifiers: Atrial fibrillation type: paroxysmal Qualified Code(s): I48.0 - Paroxysmal atrial fibrillation (8) Diastolic CHF Qualifiers: Heart failure chronicity: chronic Qualified Code(s): I50.32 - Chronic diastolic (congestive) heart failure
[2018-05-02] MEDS: Levofloxacin 750 MG/150 ML 750 MG/150 ML BAG IVPB SCH (21:31)
[2018-05-02] MEDS: Insulin DETEMIR 100 UNIT/ML X5UNITS SQ SCH (21:32)
[2018-05-03 05:17] LABS: Basophils # 0.1 K/mcL (0.0-0.2); Basophils % 0.5 %; Eosinophils # 0.4 K/mcL (0.0-0.6); Eosinophils % 2.8 %; Hematocrit 23.7 % (35.3-44.9); Hemoglobin 7.4 g/dL (11.5-15.4); Immature Granulocytes % 1.7 % (0-4); Lymphocytes # 0.8 K/mcL (0.6-4.6); Lymphocytes % 5.7 %; Mean Corpuscular HGB Conc 31.2 g/dL (31.6-35.5); Mean Corpuscular Hemoglobin 27.7 pg (28.0-33.3); Mean Corpuscular Volume 88.8 fL (83.0-100.0); Mean Platelet Volume 10.9 fL (9.4-12.4); Monocytes # 1.5 K/mcL (0.0-1.3); Monocytes % 10.5 %; Neutrophils # 11.4 K/mcL (1.6-8.9); Platelet Count 266 K/mcL (140-400); Red Blood Count 2.67 M/mcL (3.82-4.97); Red Cell Distribution Width 15.9 % (11.5-14.5); Segmented Neutrophils % 78.8 %
[2018-05-03 08:00] LABS: Calcium 8.2 mg/dL (8.6-10.3); Magnesium 1.7 mg/dL (1.6-2.6); Phosphorous 3.1 mg/dL (2.7-4.5); Potassium 3.9 mEq/L (3.5-5.1)
[2018-05-03] MEDS: cloNIDine HCl 0.1 MG TABLET PO SCH ×3 (08:20→19:59)
[2018-05-03] MEDS: Insulin DETEMIR 100 UNIT/ML X5UNITS SQ SCH ×2 (08:20→20:14)
[2018-05-03] MEDS: Insulin LISPRO 300 UNITS/3 ML VIAL SQ SCH ×4 (08:21→17:47)
[2018-05-03] MEDS: Diltiazem CD (24hr) 120 MG CAPSULE PO SCH (08:22)
[2018-05-03] MEDS: Furosemide 20 MG TABLET PO SCH (08:23)
[2018-05-03] MEDS: hydrALAZINE 25 MG TABLET PO SCH ×3 (08:23→19:59)
[2018-05-03] MEDS: Gabapentin 100 MG CAPSULE PO SCH ×2 (08:23→19:58)
[2018-05-03] MEDS ORDERED: Furosemide 20 MG/2 ML VIAL IVP ONE (12:28)
[2018-05-03] MEDS ORDERED: SODIUM CHLORIDE/NAHCO3/KCL/PEG 4,000 ML SOLN.RECON PO ONE (13:31)
[2018-05-03] MEDS ORDERED: 0.9 % Sodium Chloride 250 ML ONE (15:02)
--- NOTE | 2018-05-03 15:14 | Internal Med Progress Note ---
Hospitalist Progress Note - Encounter Date of Encounter: 05/03/18 Time of Encounter: 11:15 - Subjective Interval History: Patient reports feeling well. Denies chest or abdominal pain, nausea, vomiting, hematochezia; - Exam Vitals: Temp Pulse Resp BP Pulse Ox 97.7 F 58 16 144/46 100 05/03/18 10:52 05/03/18 10:52 05/03/18 10:52 05/03/18 10:52 05/03/18 10:52 Exam: General: Well-developed female lying sitting up in chair, in no acute distress Skin: Warm and supple Chest: Normal thoracic expansion. Normal breath sounds. Clear to auscultation. Heart: Normal S1 & S2; regular rate; Abdomen: Non-distended, soft; nontender; Extremities: B/L 2+ pedal edema. Neurological: Awake, alert and oriented to person, place. No focal deficits. - Assessment and Plan (1) Pneumonia Current Visit: Yes Status: Suspected Assessment and Plan: Chest x-ray showed bibasilar opacities, could be infiltrates versus edema. Patient presented with fever, tachycardia, weakness and leukocytosis, empirically being treated for sepsis. Blood cultures remain negative. completed a 7-day course of IV Levaquin. Continues to have stable mild leukocytosis, around 14. Continue supplemental oxygen and supportive care. PT/OT evaluation; (2) Sepsis Current Visit: Yes Status: Resolved (3) Anemia Current Visit: Yes Status: Chronic Assessment and Plan: Acute on chronic anemia. Multifactorial-iron deficiency, chronic kidney disease , possible GI bleed, sepsis. Received 4 units blood transfusion during this admission. Hemoglobin noted to have dropped again, 7.4 today. We will transfuse 1 unit PRBC. Case discussed with oncology and GI. CT abdomen during this admission showed possible left-sided mass that looked like intussusception. Suspicion for new cancerous lesion in the colon excess. Given her hemoglobin drop, plan for colonoscopy tomorrow. Last colonoscopy in September 2017 was noted to be normal. (4) DVT prophylaxis Current Visit: Yes Status: Acute (5) Uncontrolled type 2 diabetes mellitus with insulin therapy Current Visit: Yes Status: Chronic Assessment and Plan: Blood sugars noted to be elevated. Continue basal bolus insulin regimen, add nutritional insulin and increase sliding scale insulin. Accu-Chek blood glucose monitoring, diabetic diet. (6) Acute kidney injury superimposed on chronic kidney disease Current Visit: Yes Status: Acute (7) Atrial fibrillation Current Visit: Yes Status: Chronic Assessment and Plan: Currently rate controlled. Continue telemetry monitoring, beta amos; held ASA and Eliquis due to ongoing anemia. explained risks and benefits to patient, agrees to holding it for now; (8) Diastolic CHF Current Visit: Yes Status: Chronic (9) Colon cancer metastasized to liver Current Visit: Yes Status: Chronic - Time Spent with Patient Total time spent is greater than 50% in coordination of care (as documented) at patient's floor/unit and/or counseling patient: Plan of Care Discussed with: residential sales consultant Internal Medicine: Result - Labs CBC & Chem 7: 05/03/18 04:31 05/03/18 04:31 Labs: Short CBC 05/03/18 Range/Units 04:31 WBC 14.4 H (4.3-11.1) K/mcL Hgb 7.4 L (11.5-15.4) g/dL Hct 23.7 L (35.3-44.9) % Plt Count 266 (140-400) K/mcL Neutrophils # 11.4 H (1.6-8.9) K/mcL BMP 05/03/18 04:31 Sodium 136 Potassium 3.9 Chloride 105 Carbon Dioxide 21 L BUN 47 H Creatinine 1.89 H Glucose 277 H Calcium 8.2 L - ABG Interpretation ABG results: PT/INR, D-dimer PT 17.6 Seconds (9.4-12.1) H 04/28/18 01:50 Consult Discharge Plan - Plan Referrals: Chayo Alvarado MD [Partnered Physician] - 05/10/18 10:40 am Geremias Ryan DO [Primary Care Provider] - (1) Pneumonia Qualifiers: Pneumonia type: due to unspecified organism Laterality: unspecified laterality Lung location: unspecified part of lung Qualified Code(s): J18.9 - Pneumonia, unspecified organism (2) Sepsis Qualifiers: Sepsis type: sepsis due to unspecified organism Qualified Code(s): A41.9 - Sepsis, unspecified organism (3) Anemia Qualifiers: Anemia type: other cause Other causes of anemia: chronic disease, other Qualified Code(s): D63.8 - Anemia in other chronic diseases classified elsewhere (7) Atrial fibrillation Qualifiers: Atrial fibrillation type: paroxysmal Qualified Code(s): I48.0 - Paroxysmal atrial fibrillation (8) Diastolic CHF Qualifiers: Heart failure chronicity: chronic Qualified Code(s): I50.32 - Chronic diastolic (congestive) heart failure
[2018-05-04 05:23] LABS: Basophils # 0.1 K/mcL (0.0-0.2); Basophils % 0.3 %; Eosinophils # 0.4 K/mcL (0.0-0.6); Eosinophils % 2.5 %; Hemoglobin 8.6 g/dL (11.5-15.4); Immature Granulocytes % 1.2 % (0-4); Lymphocytes # 0.8 K/mcL (0.6-4.6); Lymphocytes % 4.9 %; Mean Corpuscular HGB Conc 31.9 g/dL (31.6-35.5); Mean Corpuscular Hemoglobin 28.5 pg (28.0-33.3); Mean Corpuscular Volume 89.4 fL (83.0-100.0); Mean Platelet Volume 11.1 fL (9.4-12.4); Monocytes # 1.9 K/mcL (0.0-1.3); Monocytes % 11.3 %; Neutrophils # 13.1 K/mcL (1.6-8.9); Platelet Count 274 K/mcL (140-400); Red Blood Count 3.02 M/mcL (3.82-4.97); Red Cell Distribution Width 15.7 % (11.5-14.5); Segmented Neutrophils % 79.8 %
[2018-05-04 05:47] LABS: Calcium 8.3 mg/dL (8.6-10.3); Potassium 3.6 mEq/L (3.5-5.1)
[2018-05-04] MEDS ORDERED: Lidocaine -MPF 2% 2 ML VIAL ONE ×2 (06:51→07:10)
[2018-05-04] MEDS ORDERED: *HR* Succinylcholine 200 MG/10 ML VIAL IVP ONE (06:51)
[2018-05-04] MEDS ORDERED: Propofol 500 MG/50 ML INFUS..BTL ONE (06:52)
--- NOTE | 2018-05-04 07:57 | Anesthesia Evaluation PreOp ---
Date of Encounter: 05/04/18 Time of Encounter: 07:55 - Past History Planned Operation: Colonoscopy re: Anemia Cardiac History: NM, CHF, HTN, Hyperlipidemia, Arrhythmia (AFib), Cardiac Surgery (CABG x 3v 2013), Cardiac Stent (stent x 1 2003) Pulmonary History: Denies Any Significant HX, Other (Recently dx pneumonia) SALES ACCOUNT REPRESENTATIVE History: Denies Any Significant HX Other Medical History: Renal (Hx Renal Ca s/p L-nephrectomy), Diabetes Type II ( uncontrolled), Other (Hx Colon Ca) Anesthesia History: Past Anesthesia (Nephrectomy, Colon resection, EGD 05/01/2018) Alcohol Use: none Drug use: none Medications and Allergies Aspirin [Adult Low Dose Aspirin EC] 81 mg PO DAILY 11/15/15 [History] Insulin ASPART [Novolog Flexpen] 15 unit SQ TIDWM MDD + SLIDING SCALE 11/15/15 [ History] Ferrous Sulfate 325 mg PO DAILY 11/29/16 [History] Hydralazine HCl 100 mg PO TID 11/29/16 [History] [place]-3/Dha/Epa/Fish Oil [Fish Oil 1,000 mg Softgel] 1 cap PO DAILY 11/29/16 [ History] cloNIDine HCl [Clonidine HCl] 0.3 mg PO TID #90 tab 03/05/17 [Rx] Albuterol Sulfate [Proair Hfa] 1 puff IH Q4H PRN #1 inh 05/11/17 [Rx] ALPRAZolam [Xanax 0.5 MG Tablet] 0.5 mg PO BID PRN 08/08/17 [History] Apixaban [Eliquis] 2.5 mg PO BID 08/08/17 [History] Pravastatin Sodium [Pravachol] 80 mg PO QPM 08/08/17 [History] Carvedilol [Coreg] 25 mg PO BIDWM #60 tablet 08/18/17 [Rx] Oxygen 2 l NS AD 09/22/17 [History] Furosemide [Lasix] 40 mg PO DAILY PRN 10/19/17 [History] Dulaglutide [Trulicity] 0.75 mg SQ TH 04/13/18 [History] Gabapentin [Neurontin] 100 mg PO BID 04/13/18 [History] Insulin Degludec [Tresiba Flextouch U-200] 62 unit SQ HS 04/13/18 [History] dilTIAZem HCl [Diltiazem 24Hr ER] 120 mg PO DAILY 04/13/18 [History] Mupirocin Calcium [Bactroban Nasal] 1 gm NS BID 5 Days #1 oint...g. 04/16/18 [Rx ] 3 Allergy/AdvReac Type Severity Reaction Status Date / Time Sulfa (Sulfonamide Allergy Severe Swelling Verified 04/10/18 15:11 Antibiotics) of Lip/Tongue/Throat - Meds/Allergy Pre-op Review Medications Reviewed: Yes Allergies Reviewed: Yes Beta Blockers on Current Med List: Yes (Carvedilol) Anesthesia Results - Labs 05/04/18 04:31 05/04/18 04:31 - Imaging Additional studies: ECHO 04/13/2018 EV/EV limited echo w saline Impressions: LVEF 55%. Normal LV chamber size, wall thickness and function. Atypical septal motion noted. No evidence of a PFO with agitated saline contrast. Left Ventricular Wall Motion: Rest Echo Findings All wall segments showed normal motion. ECHO 11/2017 EV/EV echocardiogram Impressions: LVEF 55%. Normal LV chamber size, wall thickness and function. Atypical septal motion consistent with post-operative status. Indeterminate diastolic function. Mildly dilated and hypokinetic right ventricle. Mild mitral regurgitation. Mild tricuspid regurgitation. Moderate-severe pulmonary hypertension. Estimated RVSP is 53-63 mmHg, including an estimated RA pressure of 10-20 mmHg. Anesthesia Exam Vital Signs Temp Pulse Resp BP Pulse Ox 05/04/18 07:55 97.9 F 105 16 188/87 98 05/04/18 07:27 97.8 F 68 16 157/58 100 05/04/18 05:42 98.8 F 63 18 140/60 100 05/03/18 23:20 97.8 F 71 17 137/50 99 05/03/18 20:25 97.5 F L 63 18 177/62 92 05/03/18 19:00 97.6 F 65 18 186/68 100 05/03/18 17:55 99.1 F 63 18 100 05/03/18 16:33 98.4 F 60 18 171/60 100 05/03/18 15:27 98.5 F 64 18 165/63 98 05/03/18 15:12 98.4 F 63 18 163/59 100 05/03/18 10:52 97.7 F 58 16 144/46 100 Intake and Output 05/03/18 05/04/18 05/04/18 23:59 07:59 15:59 Intake Total 350 / 350 Balance 350 / 350 Intake: Blood Product 350 / 350 Rbcs Leuko Poor As-3 2nd Unit 350 / 350 [id number] Other: Stool Size Large Copious Stool Consistency loose liquid liquid Stool Color Brown Yellow Black Black # Voids 1 # Urine Diapers 2 1 # Bowel Movements 1 # Bowel Movement Diapers 1 Blood Glucose* 281 102 Height: 5' Weight: 208# BMI = 41 NPO (# of Hours): MNoc - HEENT Pupil (Motor): Pupils equal, EOMI Mallampati: III Teeth: Normal, Missing Oral Opening: Greater than 3 - SALES ACCOUNT REPRESENTATIVE LOC: Oriented SALES ACCOUNT REPRESENTATIVE Motor: Normal RUE, Normal LUE, Normal RLE, Normal LLE, Normal Face SALES ACCOUNT REPRESENTATIVE Sensory: Normal: RUE, LUE, RLE, LLE, Face - Cardiac Rhythm: Irregular Murmur: None - Pulmonary Breath Sounds: bilateral Clear Anesthesia Assess/Plan ASA Score: 4 Modified [place] Scale for Level of Consciousness: Cooperative, oriented, and tranquil Anesthetic Plan: MAC Monitoring Plan: Standard Monitors Recovery Plan: Other Anes Supervising Prov Stmt: PT seen/evaluated, R&B Discussed, questions answered and consent obtained. Kristy Urena MD
[2018-05-04] MEDS: cloNIDine HCl 0.1 MG TABLET PO SCH ×4 (08:05→21:44)
[2018-05-04] MEDS: Insulin DETEMIR 100 UNIT/ML X5UNITS SQ SCH ×3 (08:06→21:42)
[2018-05-04] MEDS: Insulin LISPRO 300 UNITS/3 ML VIAL SQ SCH ×6 (08:13→17:28)
[2018-05-04] MEDS: hydrALAZINE 25 MG TABLET PO SCH ×3 (09:15→21:43)
[2018-05-04] MEDS: Diltiazem CD (24hr) 120 MG CAPSULE PO SCH (09:15)
[2018-05-04] MEDS: Gabapentin 100 MG CAPSULE PO SCH ×2 (09:15→21:43)
[2018-05-04] MEDS: Furosemide 20 MG TABLET PO SCH (09:15)
--- NOTE | 2018-05-04 14:40 | General Surgery Consult Note ---
Date of Encounter: 05/04/18 Time of Encounter: 14:00 Assessment and Plan (1) Colonic mass Current Visit: Yes Status: Acute s/p Colonoscopy with Dr. Schaefer Pathology pending Continue clear liquids through the weekend Plan for colon resection early next week with Dr. Hester- patient and her daughter in agreement Supportive care (2) Acute blood loss anemia Current Visit: Yes Status: Acute Monitor Hgb/Hct Plan for colon resection early next week (3) Colon cancer metastasized to liver Current Visit: Yes Status: Chronic Oncology following (4) CKD (chronic kidney disease) stage 3, GFR 30-59 ml/min Current Visit: No Status: Chronic Managment per hospitalist service History of Present Illness Consult date: 05/04/18 Reason for consult: other (Transverse colon mass) Requesting physician: Nunu Schaefer History of present illness: Mrs. Hitchcock is a very pleasant 72 year old female who is well known to the surgery practice. She is s/p a colon resection in November of 2015 for [address] Hester. She originally underwent endoscopy by Dr. Schaefer on 11/17/2015. Her endoscopy showed 3 lesions within the colon: Two malignant appearing lesions, one within the ascending colon, and one within the transverse colon. She also had a polypoid lesion in her descending colon. The polypoid lesion in the descending colon was approximately 20 mm and resected and retrieved. The other 2 lesions were biopsied and tattooed. She did have follow-up colonoscopy in September of 2017 which shows no significant findings. She does have liver lesions which have been followed closely per oncology. The patient is recently s/p EGD with Dr. Hetser due to concerns for ongoing anemia. She was found to have mild gastritis at that time. The patient presented to the hospital with complaints of progressive weakness, lethargy and abdominal discomfort. The patient did undergo colonoscopy with Dr. Schaefer and was found to have a new colon lesion within the transverse colon. We have been asked to see and evaluate the patient for recommendations. Past Med Surg Social Fam HX - Past Medical History Source: patient, old records reviewed Medical history: arthritis, asthma, atrial fibrillation, cancer (Left renal cell carcinoma, Colon cancer, RLE leiomyosarcoma, basal cell skin cancer), CHF, COPD, coronary artery disease, diabetes, hyperlipidemia, hypertension, myocardial infarction, venous stasis Additional medical history: Sleep apnea, Osteoporosis, Liver lesions, Pneumonia , UTI Psychiatric history: anxiety, depression - Past Surgical History Surgical History: angioplasty/stent (2003), cholecystectomy (Open), colectomy ( Colon resection 11/2015), coronary bypass (CABG) (2013), other Additional surgical history: Left nephrectomy- 2016, Excision of RLE mass 2017 - Social History Smoking Status: Never smoker Smokeless Tobacco Status: No Alcohol use: none Drug use: none - Family History Father Family Member Ethnicity: Non- Living Status: Hx Family Cardiac Disorders: Yes (CHF, CAD, CA) Hx Family Respiratory Disorders: No Hx Family Cancer: No Hx Family GI Disorders: No Hx Family Endocrine Disorder: No Hx Family Neuromuscular Disorders: No Hx Family Neurologic Disorders: No Hx Family HEENT Disorders: No Hx Family Autoimmune Disorders: No Brother Family Member Ethnicity: Non- Living Status: Hx Family Cancer: Yes (Throat) Hx Family Musculoskeletal Disorders: Yes (Parkinson's) Sister Family Member Ethnicity: Non- Living Status: Hx Family Respiratory Disorders: Yes (Emphysema) Hx Family Cancer: Yes (Breast) Mother History Unknown: Yes Family Member Ethnicity: Non- Living Status: Hx Family Cardiac Disorders: No Hx Family Respiratory Disorders: Yes (asthma) Hx Family Cancer: Yes (Colon) Hx Family GI Disorders: No Hx Family Endocrine Disorder: No Hx Family Neuromuscular Disorders: No Hx Family Neurologic Disorders: No Hx Family HEENT Disorders: No Hx Family Autoimmune Disorders: No Medications and Allergies Aspirin [Adult Low Dose Aspirin EC] 81 mg PO DAILY 11/15/15 [History] Insulin ASPART [Novolog Flexpen] 15 unit SQ TIDWM MDD + SLIDING SCALE 11/15/15 [ History] Ferrous Sulfate 325 mg PO DAILY 11/29/16 [History] Hydralazine HCl 100 mg PO TID 11/29/16 [History] [place]-3/Dha/Epa/Fish Oil [Fish Oil 1,000 mg Softgel] 1 cap PO DAILY 11/29/16 [ History] cloNIDine HCl [Clonidine HCl] 0.3 mg PO TID #90 tab 03/05/17 [Rx] Albuterol Sulfate [Proair Hfa] 1 puff IH Q4H PRN #1 inh 05/11/17 [Rx] ALPRAZolam [Xanax 0.5 MG Tablet] 0.5 mg PO BID PRN 08/08/17 [History] Apixaban [Eliquis] 2.5 mg PO BID 08/08/17 [History] Pravastatin Sodium [Pravachol] 80 mg PO QPM 08/08/17 [History] Carvedilol [Coreg] 25 mg PO BIDWM #60 tablet 08/18/17 [Rx] Oxygen 2 l NS AD 09/22/17 [History] Furosemide [Lasix] 40 mg PO DAILY PRN 10/19/17 [History] Dulaglutide [Trulicity] 0.75 mg SQ TH 04/13/18 [History] Gabapentin [Neurontin] 100 mg PO BID 04/13/18 [History] Insulin Degludec [Tresiba Flextouch U-200] 62 unit SQ HS 04/13/18 [History] dilTIAZem HCl [Diltiazem 24Hr ER] 120 mg PO DAILY 04/13/18 [History] Mupirocin Calcium [Bactroban Nasal] 1 gm NS BID 5 Days #1 oint...g. 04/16/18 [Rx ] 3 Allergy/AdvReac Type Severity Reaction Status Date / Time Sulfa (Sulfonamide Allergy Severe Swelling Verified 04/10/18 15:11 Antibiotics) of Lip/Tongue/Throat Review of Systems All systems PM: reviewed and no additional remarkable complaints except as stated (in the HPI) All systems PM: The remainder of the systems were reviewed and are negative General Surgery Exam Initial Vital Signs Temp Pulse Resp BP Pulse Ox 101.3 F H 121 24 175/95 92 04/26/18 15:52 04/26/18 15:52 04/26/18 15:52 04/26/18 15:52 04/26/18 15:52 - General physical appearance well developed, well nourished, no distress - Eyes PERRL, normal ocular movement - ENT normal mucosa, atraumatic, normocephalic - Neck trachea midline - Respiratory normal expansion, normal respiratory effort, clear to auscultation - Cardiovascular Cardiovascular exam: Present: RRR - Abdomen Abdomen general surgery: Present: bowel sounds present, soft, non tender - Integumentary Integumentary general surgery: Present: warm and dry - Neurologic Present: CN 2-12 grossly intact - Psychiatric Psychiatric general surgery: Present: appropriate, oriented to person, oriented to place, oriented to time, speech is normal, memory intact Exam Initial Vital Signs Temp Pulse Resp BP Pulse Ox 101.3 F H 121 24 175/95 92 04/26/18 15:52 04/26/18 15:52 04/26/18 15:52 04/26/18 15:52 04/26/18 15:52 Results - Labs 05/04/18 04:31 05/04/18 04:31 Abnormal lab results WBC 16.4 K/mcL (4.3-11.1) H 05/04/18 04:31 RBC 3.02 M/mcL (3.82-4.97) L 05/04/18 04:31 Hgb 8.6 g/dL (11.5-15.4) L 05/04/18 04:31 Hct 27.0 % (35.3-44.9) L 05/04/18 04:31 RDW 15.7 % (11.5-14.5) H 05/04/18 04:31 Neutrophils # 13.1 K/mcL (1.6-8.9) H 05/04/18 04:31 Monocytes # 1.9 K/mcL (0.0-1.3) H 05/04/18 04:31 Nucleated RBCs/100 WBC 0.1 /100 WBC (0) H 05/01/18 06:19 PT 17.6 Seconds (9.4-12.1) H 04/28/18 01:50 APTT 24.3 Seconds (26.0-36.0) L 04/26/18 16:12 BUN 37 mg/dL (8-23) H 05/04/18 04:31 Creatinine 1.69 mg/dL (0.60-1.20) H 05/04/18 04:31 Est GFR ( Amer) 36 (> 60) L 05/04/18 04:31 Est GFR (Non-Af Amer) 30 (> 60) L 05/04/18 04:31 POC Glucose 261 mg/dL (70-99) H 05/03/18 20:04 Calcium 8.3 mg/dL (8.6-10.3) L 05/04/18 04:31 Alkaline Phosphatase 155 Units/L (34-104) H 04/26/18 16:12 B-Natriuretic Peptide 468 pg/mL (Less than 100) H 04/26/18 16:12 Globulin 3.8 g/dL (2.4-3.5) H 04/26/18 16:12 Albumin/Globulin Ratio 0.9 (1.1-2.2) L 04/26/18 16:12 Carcinoembryonic Ag 9.3 ng/mL (Less than 5.0) H 04/29/18 00:30 Vancomycin Trough 22 mcg/mL (5-10) H 04/30/18 17:04 Diabetes panel 05/04/18 Range/Units 04:31 Sodium 136 (136-145) mEq/L Potassium 3.6 (3.5-5.1) mEq/L Chloride 103 (98-107) mEq/L Carbon Dioxide 24 (23-29) mEq/L BUN 37 H (8-23) mg/dL Creatinine 1.69 H (0.60-1.20) mg/dL Glucose 102 (70-105) mg/dL Calcium 8.3 L (8.6-10.3) mg/dL Calcium panel 05/04/18 Range/Units 04:31 Calcium 8.3 L (8.6-10.3) mg/dL Pituitary panel 05/04/18 Range/Units 04:31 Sodium 136 (136-145) mEq/L Potassium 3.6 (3.5-5.1) mEq/L Chloride 103 (98-107) mEq/L Carbon Dioxide 24 (23-29) mEq/L BUN 37 H (8-23) mg/dL Creatinine 1.69 H (0.60-1.20) mg/dL Glucose 102 (70-105) mg/dL Calcium 8.3 L (8.6-10.3) mg/dL Adrenal panel 05/04/18 Range/Units 04:31 Sodium 136 (136-145) mEq/L Potassium 3.6 (3.5-5.1) mEq/L Chloride 103 (98-107) mEq/L Carbon Dioxide 24 (23-29) mEq/L BUN 37 H (8-23) mg/dL Creatinine 1.69 H (0.60-1.20) mg/dL Glucose 102 (70-105) mg/dL Calcium 8.3 L (8.6-10.3) mg/dL All other labs normal. - Imaging Additional studies: Head CT 04/26/18 16:04 IMPRESSION: Stable CT brain with no acute intracranial abnormality and redemonstration of chronic ischemic/senescent changes as described. D/ / Stan Guerra MD / Stan Guerra MD Interpreting Provider: Stan Guerra MD Chest X-Ray 04/27/18 10:00 IMPRESSION: Perihilar and bibasilar opacities, mildly improved from previous examination. D/ / Chan Mccrary MD / Chan Mccrary MD Interpreting Provider: Chan Mccrary MD Abdomen/Pelvis CT 04/28/18 14:30 IMPRESSION: No significant interval change. Left mid abdominal mass which may be causing partial intussusception however no small bowel obstruction is seen. Hepatic metastatic disease. D/ / 04/28/2018 16:45:30 Silvestre Alston MD / sandro Interpreting Provider: Silvestre Alston MD Consult Discharge Plan - Plan Referrals: Chayo Alvarado MD [Partnered Physician] - 05/10/18 10:40 am Geremias Ryan DO [Primary Care Provider] - - Attending Attestation For this encounter, I have reviewed the VENEER JOINTER or PA documentation, treatment plan, and medical decision making; and I have had face to face time with this patient.
--- NOTE | 2018-05-04 15:17 | Internal Med Progress Note ---
Hospitalist Progress Note - Encounter Date of Encounter: 05/04/18 Time of Encounter: 10:55 - Subjective Interval History: Patient just returned from colonoscopy; slightly drowsy but able to answer questions and participate in conversation; no chest pain, SOB, palpitations; continues to have leg swelling; - Exam Vitals: Temp Pulse Resp BP Pulse Ox 98.0 F 72 16 140/58 100 05/04/18 11:21 05/04/18 11:21 05/04/18 11:21 05/04/18 11:21 05/04/18 11:21 Exam: General: Well-developed female lying in bed, in no acute distress, slightly drowsy Skin: Warm and supple Chest: Normal thoracic expansion. Normal breath sounds. Clear to auscultation anterolaterally. Heart: Normal S1 & S2; irregular rate; Abdomen: Non-distended, soft; nontender; obese Extremities: B/L 2+ pedal edema. Neurological: Awake, alert and oriented to person, place. No focal deficits. - Assessment and Plan (1) Pneumonia Current Visit: Yes Status: Suspected Assessment and Plan: Chest x-ray showed bibasilar opacities, could be infiltrates versus edema. Blood cultures remain negative. completed a 7-day course of IV Levaquin. Continues to have leukocytosis, 16 today, likely secondary to PRBC transfusion; Continue supplemental oxygen and supportive care. PT/OT evaluation recommended HHS; (2) Sepsis Current Visit: Yes Status: Resolved (3) Anemia Current Visit: Yes Status: Chronic Assessment and Plan: Acute on chronic anemia. Multifactorial- GI bleed due to malignant colonic mass with iron deficiency, chronic kidney disease. Received 5 units blood transfusion during this admission. Patient underwent colonoscopy today, that showed an ulcerated bleeding nonobstructing mass in the transverse colon, appears malignant. Consulted surgery, plan for possible resection on 05/07/2018. Also discussed with oncology. (4) DVT prophylaxis Current Visit: Yes Status: Acute Assessment and Plan: on EPCDs; avoid pharmacologic anticoagulation due to anemia; (5) Uncontrolled type 2 diabetes mellitus with insulin therapy Current Visit: Yes Status: Chronic Assessment and Plan: Fasting blood sugars noted to be low, will decrease basal insulin; Continue basal bolus insulin regimen. Accu-Chek blood glucose monitoring, diabetic diet. (6) Acute kidney injury superimposed on chronic kidney disease Current Visit: Yes Status: Resolved (7) Atrial fibrillation Current Visit: Yes Status: Chronic Assessment and Plan: Currently rate controlled. Continue telemetry monitoring, beta amos; held ASA and Eliquis due to ongoing anemia. explained risks and benefits to patient, agrees to holding it for now; (8) Diastolic CHF Current Visit: Yes Status: Chronic (9) Colon cancer metastasized to liver Current Visit: Yes Status: Chronic Assessment and Plan: Oncology on board; recommend outpatient PET-CT to further evaluate new liver mass; Colonoscopy revealed new possibly malignant mass on transverse colon, biopsy pending; plan for resection by Surgery on Monday; (10) Chronic kidney disease Current Visit: Yes Status: Chronic Assessment and Plan: Serum creatinine stable, 1.69 today. avoid nephrotoxic agents; - Time Spent with Patient Total time spent is greater than 50% in coordination of care (as documented) at patient's floor/unit and/or counseling patient: Plan of Care Discussed with: senior safety management consultant Internal Medicine: Result - Labs CBC & Chem 7: 05/04/18 04:31 05/04/18 04:31 Labs: Short CBC 05/04/18 Range/Units 04:31 WBC 16.4 H (4.3-11.1) K/mcL Hgb 8.6 L (11.5-15.4) g/dL Hct 27.0 L (35.3-44.9) % Plt Count 274 (140-400) K/mcL Neutrophils # 13.1 H (1.6-8.9) K/mcL BMP 05/04/18 04:31 Sodium 136 Potassium 3.6 Chloride 103 Carbon Dioxide 24 BUN 37 H Creatinine 1.69 H Glucose 102 Calcium 8.3 L - ABG Interpretation ABG results: PT/INR, D-dimer PT 17.6 Seconds (9.4-12.1) H 04/28/18 01:50 Consult Discharge Plan - Plan Referrals: Chayo Alvarado MD [Partnered Physician] - 05/10/18 10:40 am Geremias Ryan DO [Primary Care Provider] - (1) Pneumonia Qualifiers: Pneumonia type: due to unspecified organism Laterality: unspecified laterality Lung location: unspecified part of lung Qualified Code(s): J18.9 - Pneumonia, unspecified organism (2) Sepsis Qualifiers: Sepsis type: sepsis due to unspecified organism Qualified Code(s): A41.9 - Sepsis, unspecified organism (3) Anemia Qualifiers: Anemia type: other cause Other causes of anemia: acute posthemorrhagic Qualified Code(s): D62 - Acute posthemorrhagic anemia (7) Atrial fibrillation Qualifiers: Atrial fibrillation type: paroxysmal Qualified Code(s): I48.0 - Paroxysmal atrial fibrillation (8) Diastolic CHF Qualifiers: Heart failure chronicity: chronic Qualified Code(s): I50.32 - Chronic diastolic (congestive) heart failure (10) Chronic kidney disease Qualifiers: Chronic kidney disease stage: stage 4 (severe) Qualified Code(s): N18.4 - Chronic kidney disease, stage 4 (severe)
--- NOTE | 2018-05-04 19:07 | Oncology Inp Progress Note ---
Date of Encounter: 05/04/18 Time of Encounter: 19:04 (1) Acute blood loss anemia Current Visit: Yes Status: Acute Assessment and plan: Currently hemoglobin stable around 8. Periodic packed RBC transfusion is needed (2) Colonic mass Current Visit: Yes Status: Acute Assessment and plan: Recurrent colon cancer. She had 2 synchronous primaries resected 2016 in both stage I. No adjuvant chemotherapy needed at that time Colonoscopy showed nonobstructing mass transverse colon causing bleeding and acute anemia She had about 5 cm mass left anterior abdominal wall which is chronic may have partial intussusception Low density hepatic lesions are also chronic and may not need 5 metastasis. We will evaluate this further and outpatient with a PET scan CEA elevated around 9.5 Plan is to do robotic transverse colon resection early next week History of multiple cancers. We will after school counselor her again about genetic testing Oncology: Subj Interval history: More alert and oriented. Hemoglobin is stable. Energy level is good - Constitutional Vitals: Vital Signs Temp Pulse Resp BP Pulse Ox 05/04/18 16:18 98.1 F 60 18 132/62 97 05/04/18 11:21 98.0 F 72 16 140/58 100 05/04/18 11:00 74 16 147/62 100 05/04/18 10:00 65 153/61 05/04/18 09:31 64 16 149/54 99 05/04/18 09:15 68 16 143/54 100 05/04/18 09:00 84 16 154/59 99 05/04/18 07:55 97.9 F 105 16 188/87 98 05/04/18 07:27 97.8 F 68 16 157/58 100 05/04/18 05:42 98.8 F 63 18 140/60 100 05/03/18 23:20 97.8 F 71 17 137/50 99 05/03/18 20:25 97.5 F L 63 18 177/62 92 Intake and Output 05/04/18 05/04/18 05/04/18 07:59 15:59 23:59 Intake Total 480 / 480 840 / 840 Balance 480 / 480 840 / 840 Intake: IV Fluids 0 / 0 Oral 480 / 480 840 / 840 Other: Stool Size Copious Moderate Stool Consistency liquid loose Stool Color Yellow Black # Voids 1 # Urine Diapers 1 1 # Bowel Movements 1 # Bowel Movement Diapers 1 Blood Glucose* 102 95 244 Exam: GENERAL: Alert and oriented, Mental Status: Affect appropriate for circumstances HEENT: Sclerae anicteric. No mucositis or thrush. No other oral or pharyngeal lesions or erythema. Skin: No rashes or petechiae. No evidence of skin malignancy Lymph nodes: No cervical, supraclavicular, axillary, or inguinal adenopathy. Lungs: Air entry normal with normal breath sounds. No rhonchi or wheezing Cardiovascular: Regular rate and rhythm. No skipped beats Abdomen: Soft, nontender; Extremities: No edema. No calf swelling or tenderness. No joint deformity. Neurologic: Alert, cranial nerves II-XII intact; normal gait; no focal weakness or sensory abnormalities Oncology: Obj Data - Labs CBC & Chem 7: 05/07/18 05:25 05/07/18 05:25 Labs: Laboratory Results - last 24 hr 05/03/18 05/04/18 05/04/18 20:04 04:31 04:31 WBC 16.4 H RBC 3.02 L Hgb 8.6 L Hct 27.0 L MCV 89.4 MCH 28.5 MCHC 31.9 RDW 15.7 H Plt Count 274 MPV 11.1 Immature Gran % 1.2 Seg Neutrophils % 79.8 Lymphocytes % 4.9 Monocytes % 11.3 Eosinophils % 2.5 Basophils % 0.3 Neutrophils # 13.1 H Lymphocytes # 0.8 Monocytes # 1.9 H Eosinophils # 0.4 Basophils # 0.1 Sodium 136 Potassium 3.6 Chloride 103 Carbon Dioxide 24 BUN 37 H Creatinine 1.69 H Est GFR ( Amer) 36 L Est GFR (Non-Af Amer) 30 L BUN/Creatinine Ratio 22 Glucose 102 POC Glucose 261 H Calculated Osmolality 291 Calcium 8.3 L 05/04/18 05/04/18 05/04/18 07:13 11:23 16:16 WBC RBC Hgb Hct MCV MCH MCHC RDW Plt Count MPV Immature Gran % Seg Neutrophils % Lymphocytes % Monocytes % Eosinophils % Basophils % Neutrophils # Lymphocytes # Monocytes # Eosinophils # Basophils # Sodium Potassium Chloride Carbon Dioxide BUN Creatinine Est GFR ( Amer) Est GFR (Non-Af Amer) BUN/Creatinine Ratio Glucose POC Glucose 102 H 95 244 H Calculated Osmolality Calcium - ABG Interpretation ABG results: PT/INR, D-dimer PT 17.6 Seconds (9.4-12.1) H 04/28/18 01:50 Consult Discharge Plan - Plan Referrals: Chayo Alvarado MD [Partnered Physician] - 05/10/18 10:40 am Geremias Ryan DO [Primary Care Provider] - Inpatient Charges Provider: Dr. Merna Alvarado Follow Up: [id number]
[2018-05-05 04:53] LABS: Basophils # 0.1 K/mcL (0.0-0.2); Basophils % 0.4 %; Eosinophils # 0.3 K/mcL (0.0-0.6); Eosinophils % 1.5 %; Hematocrit 26.9 % (35.3-44.9); Hemoglobin 8.4 g/dL (11.5-15.4); Immature Granulocytes % 1.1 % (0-4); Lymphocytes # 0.5 K/mcL (0.6-4.6); Lymphocytes % 2.7 %; Mean Corpuscular HGB Conc 31.2 g/dL (31.6-35.5); Mean Corpuscular Hemoglobin 28.3 pg (28.0-33.3); Mean Corpuscular Volume 90.6 fL (83.0-100.0); Mean Platelet Volume 11.1 fL (9.4-12.4); Monocytes # 1.4 K/mcL (0.0-1.3); Monocytes % 8.1 %; Platelet Count 250 K/mcL (140-400); Red Blood Count 2.97 M/mcL (3.82-4.97); Red Cell Distribution Width 15.9 % (11.5-14.5); Segmented Neutrophils % 86.2 %
[2018-05-05] MEDS: hydrALAZINE 25 MG TABLET PO SCH ×3 (08:28→22:09)
[2018-05-05] MEDS: Furosemide 20 MG TABLET PO SCH (08:28)
[2018-05-05] MEDS: Diltiazem CD (24hr) 120 MG CAPSULE PO SCH (08:28)
[2018-05-05] MEDS: cloNIDine HCl 0.1 MG TABLET PO SCH ×3 (08:29→22:09)
[2018-05-05] MEDS: Gabapentin 100 MG CAPSULE PO SCH ×2 (08:29→22:10)
[2018-05-05] MEDS: Insulin LISPRO 300 UNITS/3 ML VIAL SQ SCH ×6 (08:29→16:40)
--- NOTE | 2018-05-05 08:29 | General Surgery Progress Note ---
<Clyde Oswald R - Last Filed: 05/05/18 14:38> Date of Encounter: 05/05/18 Time of Encounter: 07:50 - Assessment and Plan (1) Colonic mass Current Visit: Yes Status: Acute S/P colonoscopy with Dr. Schaefer 05/04/2018 biopsy pathology pending Continue clear liquid diet Supportive and comfort care Will plan for colon resection next week with Dr. Hester (2) Acute blood loss anemia Current Visit: No Status: Acute Monitor H/H Has received 5 units PRBCs, Last transfusion 05/03/2018 (3) Colon cancer metastasized to liver Current Visit: Yes Status: Chronic History of colon cancer with 2 primaries removed in 2016 Oncology is following (4) Atrial fibrillation Current Visit: Yes Status: Chronic Management by primary team Currently rate controlled, holding ASA and Eliquis Qualifiers: Atrial fibrillation type: paroxysmal Qualified Code(s): I48.0 - Paroxysmal atrial fibrillation Subjective Patient reports: no new complaints, tolerating liquids well, voiding w/o difficulty, flatus, bowel movement, afebrile Objective Vital Signs - Last 8 Hours Temp Pulse Resp BP Pulse Ox 05/05/18 07:57 97.8 F 66 18 165/55 100 05/05/18 05:17 97.7 F 57 18 127/58 97 Intake and Output 05/04/18 05/05/18 05/05/18 23:59 07:59 15:59 Intake Total 840 / 840 0 / 0 Balance 840 / 840 0 / 0 Intake: Oral 840 / 840 0 / 0 Other: # Voids 0 0 # Urine Diapers 1 # Bowel Movement Diapers 1 Weight 93.9 kg Blood Glucose* 129 293 Patient Weight 05/05/18 23:59 Weight 93.9 kg - General physical appearance well nourished, no distress, no pain - Eyes PERRL, normal ocular movement - ENT normal mucosa, atraumatic, normocephalic - Neck Neck exam: trachea midline - Respiratory normal expansion, normal respiratory effort, clear to auscultation - Cardiovascular Cardiovascular exam: Present: RRR - Abdomen Abdomen: Present: bowel sounds present, soft, non tender - Integumentary no rash - Neurologic CN 2-12 grossly intact - Musculoskeletal normal posture - Psychiatric oriented to time, oriented to person, oriented to place, speech is normal - Labs 05/05/18 03:46 05/04/18 04:31 - VTE Documentation of Mechanical Device: Intermittent pneumatic compression device Consult Discharge Plan - Plan Referrals: Chayo Alvarado MD [Partnered Physician] - 05/10/18 10:40 am Geremias Ryan DO [Primary Care Provider] - <Francy Miller - Last Filed: 05/05/18 15:44> Date of Encounter: 05/05/18 - Assessment and Plan (1) Colonic mass Current Visit: Yes Status: Acute continue clears, do not advance diet tentative plan OR monday pathology pending Subjective Patient reports: no new complaints, tolerating liquids well, flatus, bowel movement, afebrile Objective Vital Signs - Last 8 Hours Temp Pulse Resp BP Pulse Ox 05/05/18 11:53 97.8 F 62 16 132/54 100 05/05/18 07:57 97.8 F 66 18 165/55 100 Intake and Output 05/04/18 05/05/18 05/05/18 23:59 07:59 15:59 Intake Total 840 / 840 0 / 0 Balance 840 / 840 0 / 0 Intake: Oral 840 / 840 0 / 0 Other: # Voids 0 0 # Urine Diapers 1 1 # Bowel Movement Diapers 1 Weight 93.9 kg Blood Glucose* 129 293 345 Patient Weight 05/05/18 23:59 Weight 93.9 kg - General physical appearance well nourished, no distress, no pain - Eyes PERRL, normal ocular movement - Neck Neck exam: trachea midline - Respiratory normal expansion, normal respiratory effort - Cardiovascular Cardiovascular exam: Present: RRR - Abdomen Abdomen: Present: bowel sounds present, soft, non tender - Integumentary no rash - Neurologic CN 2-12 grossly intact - Musculoskeletal normal posture - Psychiatric oriented to time, oriented to person, oriented to place, memory intact - Labs 05/05/18 03:46 05/04/18 04:31 - Attending Attestation I examined this patient and my medical decision-making was reviewed with the Resident Physician. I agree with the documented findings, disposition and treatment plan as described except to the extent set forth below.
[2018-05-05] MEDS: Insulin DETEMIR 100 UNIT/ML X5UNITS SQ SCH ×2 (08:41→22:10)
--- NOTE | 2018-05-05 10:37 | Oncology Inp Progress Note ---
Date of Encounter: 05/05/18 Time of Encounter: 08:00 (1) Colon cancer metastasized to liver Current Visit: Yes Status: Chronic Assessment and plan: Patient with known colon cancer with mets to liver with rising CEA and Ct abd stable findings in liver, anemic-underwent colonoscopy-transverse colon mass close to anastomotic site noted. Bx were obtained. Her Hgb/Hct is stable currently. She does not have pain. Needs anticoagulation. A surgical resection is to be planned due to bleeding symptoms. Oncology: Subj Interval history: Denies pain/bleeding. s/p colonoscopy - Constitutional Vitals: Vital Signs Temp Pulse Resp BP Pulse Ox 05/05/18 07:57 97.8 F 66 18 165/55 100 05/05/18 05:17 97.7 F 57 18 127/58 97 05/05/18 00:19 97.8 F 66 18 137/53 100 05/04/18 20:52 98.3 F 64 18 128/46 100 05/04/18 16:18 98.1 F 60 18 132/62 97 05/04/18 11:21 98.0 F 72 16 140/58 100 05/04/18 11:00 74 16 147/62 100 Intake and Output 05/04/18 05/05/18 05/05/18 23:59 07:59 15:59 Intake Total 840 / 840 0 / 0 Balance 840 / 840 0 / 0 Intake: Oral 840 / 840 0 / 0 Other: # Voids 0 0 # Urine Diapers 1 # Bowel Movement Diapers 1 Weight 93.9 kg Blood Glucose* 129 293 Patient Weight 05/05/18 23:59 Weight 93.9 kg General appearance: average body habitus - Head Head exam: Present: atraumatic, normal inspection - Eye Eye exam: Present: sclera anicteric - ENT ENT exam: Present: mucous membranes moist - Respiratory Respiratory exam: Present: CTAB - Cardiovascular Cardiovascular exam: Present: +S1, +S2 - GI/Abdominal GI/Abdominal exam: Present: normal bowel sounds, soft - Neurological Exam Neurological exam: Present: alert, CN II-XII intact, oriented X3, no focal deficits Oncology: Obj Data - Labs CBC & Chem 7: 05/05/18 03:46 05/04/18 04:31 Labs: Laboratory Results - last 24 hr 05/04/18 05/04/1818 07:13 11:23 16:16 WBC RBC Hgb Hct MCV MCH MCHC RDW Plt Count MPV Immature Gran % Seg Neutrophils % Lymphocytes % Monocytes % Eosinophils % Basophils % Neutrophils # Lymphocytes # Monocytes # Eosinophils # Basophils # POC Glucose 102 H 95 244 H 05/04/18 05/05/18 05/05/18 20:56 03:46 05:20 WBC 17.5 H RBC 2.97 L Hgb 8.4 L Hct 26.9 L MCV 90.6 MCH 28.3 MCHC 31.2 L RDW 15.9 H Plt Count 250 MPV 11.1 Immature Gran % 1.1 Seg Neutrophils % 86.2 Lymphocytes % 2.7 Monocytes % 8.1 Eosinophils % 1.5 Basophils % 0.4 Neutrophils # 15.0 H Lymphocytes # 0.5 L Monocytes # 1.4 H Eosinophils # 0.3 Basophils # 0.1 POC Glucose 129 H 269 H 05/05/18 07:51 WBC RBC Hgb Hct MCV MCH MCHC RDW Plt Count MPV Immature Gran % Seg Neutrophils % Lymphocytes % Monocytes % Eosinophils % Basophils % Neutrophils # Lymphocytes # Monocytes # Eosinophils # Basophils # POC Glucose 293 H - ABG Interpretation ABG results: PT/INR, D-dimer PT 17.6 Seconds (9.4-12.1) H 04/28/18 01:50 Consult Discharge Plan - Plan Referrals: Chayo Alvarado MD [Partnered Physician] - 05/10/18 10:40 am Geremias Ryan DO [Primary Care Provider] - Inpatient Charges Follow Up: [id number]
--- NOTE | 2018-05-05 13:24 | Internal Med Progress Note ---
Hospitalist Progress Note - Encounter Date of Encounter: 05/05/18 Time of Encounter: 10:30 - Subjective Interval History: Noted to be slightly drowsy but arousable to touch, able to answer appropriately. Denies chest or abdominal pain. No vomiting or diarrhea. Awaiting surgery for a cancerous mass found on colonoscopy. - Exam Vitals: Temp Pulse Resp BP Pulse Ox 97.8 F 62 16 132/54 100 05/05/18 11:53 05/05/18 11:53 05/05/18 11:53 05/05/18 11:53 05/05/18 11:53 Exam: General: Obese female lying in bed, in no acute distress, slightly drowsy Skin: Warm and supple Chest: Normal thoracic expansion. Normal breath sounds. Clear to auscultation anterolaterally. Heart: Normal S1 & S2; irregular rate; bradycardia; Abdomen: Non-distended, soft; nontender; obese Extremities: B/L 2+ pedal edema. Neurological: Awake, alert and oriented to person, place. No focal deficits. - Assessment and Plan (1) Pneumonia Current Visit: Yes Status: Suspected Assessment and Plan: Chest x-ray showed bibasilar opacities, could be infiltrates versus edema. Blood cultures remain negative. completed a 7-day course of IV Levaquin. Continues to have leukocytosis, 17.5 today, which is probably related to underlying malignancy; Continue supplemental oxygen and supportive care. PT/OT evaluation recommended HHS; (2) Sepsis Current Visit: Yes Status: Resolved (3) Anemia Current Visit: Yes Status: Chronic Assessment and Plan: Acute on chronic anemia. Multifactorial- GI bleed due to malignant colonic mass with iron deficiency, chronic kidney disease. Received 5 units blood transfusion during this admission. Hemoglobin is currently stable, 8.4 today. (4) DVT prophylaxis Current Visit: Yes Status: Acute (5) Uncontrolled type 2 diabetes mellitus with insulin therapy Current Visit: Yes Status: Chronic Assessment and Plan: Blood sugars noted to be uncontrolled. We will increase basal insulin; Continue basal bolus insulin regimen. Accu-Chek blood glucose monitoring, diabetic diet. (6) Acute kidney injury superimposed on chronic kidney disease Current Visit: Yes Status: Resolved (7) Atrial fibrillation Current Visit: Yes Status: Chronic Assessment and Plan: Currently rate controlled. Continue telemetry monitoring, beta amos; held ASA and Eliquis due to ongoing anemia. explained risks and benefits to patient, agrees to holding it; (8) Diastolic CHF Current Visit: Yes Status: Chronic (9) Colon cancer metastasized to liver Current Visit: Yes Status: Chronic Assessment and Plan: Oncology on board; recommend outpatient PET-CT to further evaluate new liver mass; Colonoscopy during this admission revealed new possibly malignant mass on transverse colon, biopsy pending; plan for resection by Surgery on Monday; continue clear liquid diet. Code status discussed with patient- daughter is her medical POA; she wishes to be resuscitated as "she wants to live to be with her great grandchildren; (10) Chronic kidney disease Current Visit: Yes Status: Chronic (11) Leukocytosis Current Visit: Yes Status: Acute Assessment and Plan: Patient is noted to have leukocytosis since admission, has been between 12.9- 20.3; blood cultures have been negative and patient completed a course of antibiotics for suspected Pneumonia; this is likely due to underlying malignancy and PRBC transfusions; Patient currently has no signs of infection. Continue to monitor closely. - Time Spent with Patient Total time spent is greater than 50% in coordination of care (as documented) at patient's floor/unit and/or counseling patient: Plan of Care Discussed with: patient Internal Medicine: Result - Labs CBC & Chem 7: 05/05/18 03:46 05/04/18 04:31 Labs: Short CBC 05/05/18 Range/Units 03:46 WBC 17.5 H (4.3-11.1) K/mcL Hgb 8.4 L (11.5-15.4) g/dL Hct 26.9 L (35.3-44.9) % Plt Count 250 (140-400) K/mcL Neutrophils # 15.0 H (1.6-8.9) K/mcL - ABG Interpretation ABG results: PT/INR, D-dimer PT 17.6 Seconds (9.4-12.1) H 04/28/18 01:50 - VTE Documentation of Mechanical Device: Intermittent pneumatic compression device Consult Discharge Plan - Plan Referrals: Chayo Alvarado MD [Partnered Physician] - 05/10/18 10:40 am Geremias Ryan DO [Primary Care Provider] - (1) Pneumonia Qualifiers: Pneumonia type: due to unspecified organism Laterality: unspecified laterality Lung location: unspecified part of lung Qualified Code(s): J18.9 - Pneumonia, unspecified organism (2) Sepsis Qualifiers: Sepsis type: sepsis due to unspecified organism Qualified Code(s): A41.9 - Sepsis, unspecified organism (3) Anemia Qualifiers: Anemia type: other cause Other causes of anemia: acute posthemorrhagic Qualified Code(s): D62 - Acute posthemorrhagic anemia (7) Atrial fibrillation Qualifiers: Atrial fibrillation type: paroxysmal Qualified Code(s): I48.0 - Paroxysmal atrial fibrillation (8) Diastolic CHF Qualifiers: Heart failure chronicity: chronic Qualified Code(s): I50.32 - Chronic diastolic (congestive) heart failure (10) Chronic kidney disease Qualifiers: Chronic kidney disease stage: stage 4 (severe) Qualified Code(s): N18.4 - Chronic kidney disease, stage 4 (severe) (11) Leukocytosis Qualifiers: Leukocytosis type: unspecified Qualified Code(s): D72.829 - Elevated white blood cell count, unspecified
[2018-05-06 04:51] LABS: Basophils # 0.1 K/mcL (0.0-0.2); Basophils % 0.5 %; Eosinophils # 0.4 K/mcL (0.0-0.6); Eosinophils % 2.9 %; Hematocrit 26.4 % (35.3-44.9); Hemoglobin 8.2 g/dL (11.5-15.4); Immature Granulocytes % 0.7 % (0-4); Lymphocytes # 0.7 K/mcL (0.6-4.6); Lymphocytes % 4.7 %; Mean Corpuscular HGB Conc 31.1 g/dL (31.6-35.5); Mean Corpuscular Hemoglobin 27.9 pg (28.0-33.3); Mean Corpuscular Volume 89.8 fL (83.0-100.0); Mean Platelet Volume 10.6 fL (9.4-12.4); Monocytes # 1.6 K/mcL (0.0-1.3); Monocytes % 11.7 %; Platelet Count 253 K/mcL (140-400); Red Blood Count 2.94 M/mcL (3.82-4.97); Red Cell Distribution Width 15.7 % (11.5-14.5); Segmented Neutrophils % 79.5 %
[2018-05-06 07:36] LABS: Calcium 8.5 mg/dL (8.6-10.3); Potassium 3.9 mEq/L (3.5-5.1)
[2018-05-06] MEDS: hydrALAZINE 25 MG TABLET PO SCH ×3 (08:55→21:58)
[2018-05-06] MEDS: Gabapentin 100 MG CAPSULE PO SCH ×2 (08:56→21:58)
[2018-05-06] MEDS: Furosemide 20 MG TABLET PO SCH (08:56)
[2018-05-06] MEDS: Diltiazem CD (24hr) 120 MG CAPSULE PO SCH (08:56)
[2018-05-06] MEDS: cloNIDine HCl 0.1 MG TABLET PO SCH ×3 (08:56→21:57)
[2018-05-06] MEDS: Insulin DETEMIR 100 UNIT/ML X5UNITS SQ SCH ×2 (09:20→21:56)
[2018-05-06] MEDS: Insulin LISPRO 300 UNITS/3 ML VIAL SQ SCH ×6 (09:21→17:15)
--- NOTE | 2018-05-06 15:25 | Internal Med Progress Note ---
Hospitalist Progress Note - Encounter Date of Encounter: 05/06/18 Time of Encounter: 10:45 - Subjective Interval History: More awake and alert today; awaiting surgery tomorrow; no nausea, vomiting, abdominal pain or diarrhea; on clear liquid diet; - Exam Vitals: Temp Pulse Resp BP Pulse Ox 97.9 F 66 17 133/61 97 05/06/18 11:13 05/06/18 11:13 05/06/18 11:13 05/06/18 11:13 05/06/18 11:13 Exam: General: Obese female sitting up in bed, in no acute distress, slightly drowsy Skin: Warm and supple Chest: Normal thoracic expansion. Normal breath sounds. Clear to auscultation anterolaterally. Heart: Normal S1 & S2; irregular rate; Abdomen: Non-distended, soft; nontender; obese Extremities: B/L 2+ pedal edema. Neurological: Awake, alert and oriented to person, place. No focal deficits. - Assessment and Plan (1) Pneumonia Current Visit: Yes Status: Suspected Assessment and Plan: Chest x-ray showed bibasilar opacities, could be infiltrates versus edema. Blood cultures remain negative. completed a 7-day course of IV Levaquin. improving leukocytosis, 17.5-->13.8 today, which is probably related to underlying malignancy; Continue supplemental oxygen and supportive care. PT/OT evaluation recommended HHS; (2) Sepsis Current Visit: Yes Status: Resolved (3) Anemia Current Visit: Yes Status: Chronic Assessment and Plan: Acute on chronic anemia. Multifactorial- GI bleed due to malignant colonic mass with iron deficiency, chronic kidney disease. Received 5 units blood transfusion during this admission. Hemoglobin is currently stable, 8.4-->8.2 today. (4) DVT prophylaxis Current Visit: Yes Status: Acute (5) Uncontrolled type 2 diabetes mellitus with insulin therapy Current Visit: Yes Status: Chronic Assessment and Plan: Hypoglycemia noted overnight, however sugars are now improving. Continue basal bolus insulin regimen. Accu-Chek blood glucose monitoring, diabetic diet. (6) Acute kidney injury superimposed on chronic kidney disease Current Visit: Yes Status: Resolved (7) Atrial fibrillation Current Visit: Yes Status: Chronic Assessment and Plan: Currently rate controlled. Continue telemetry monitoring, beta amos; held ASA and Eliquis due to ongoing anemia. explained risks and benefits to patient, agrees to holding it; (8) Diastolic CHF Current Visit: Yes Status: Chronic (9) Colon cancer metastasized to liver Current Visit: Yes Status: Chronic Assessment and Plan: Oncology on board; recommend outpatient PET-CT to further evaluate new liver mass; Colonoscopy during this admission revealed new possibly malignant mass on transverse colon, biopsy pending; plan for resection by Surgery tomorrow; continue clear liquid diet. (10) Chronic kidney disease Current Visit: Yes Status: Chronic (11) Leukocytosis Current Visit: Yes Status: Acute Assessment and Plan: Patient is noted to have leukocytosis since admission, has been between 12.9- 20.3; improving now; blood cultures have been negative and patient completed a course of antibiotics for suspected Pneumonia; this is likely due to underlying malignancy and PRBC transfusions; Patient currently has no signs of infection. Continue to monitor closely. - Time Spent with Patient Total time spent is greater than 50% in coordination of care (as documented) at patient's floor/unit and/or counseling patient: Plan of Care Discussed with: patient Internal Medicine: Result - Labs CBC & Chem 7: 05/06/18 04:36 05/06/18 06:56 Labs: Short CBC 05/06/18 Range/Units 04:36 WBC 13.8 H (4.3-11.1) K/mcL Hgb 8.2 L (11.5-15.4) g/dL Hct 26.4 L (35.3-44.9) % Plt Count 253 (140-400) K/mcL Neutrophils # 11.0 H (1.6-8.9) K/mcL BMP 05/06/18 06:56 Sodium 134 L Potassium 3.9 Chloride 98 Carbon Dioxide 28 BUN 29 H Creatinine 1.66 H Glucose 179 H Calcium 8.5 L - ABG Interpretation ABG results: PT/INR, D-dimer PT 17.6 Seconds (9.4-12.1) H 04/28/18 01:50 - VTE Documentation of Mechanical Device: Intermittent pneumatic compression device Consult Discharge Plan - Plan Referrals: Chayo Alvarado MD [Partnered Physician] - 05/10/18 10:40 am Geremias Ryan DO [Primary Care Provider] - (1) Pneumonia Qualifiers: Pneumonia type: due to unspecified organism Laterality: unspecified laterality Lung location: unspecified part of lung Qualified Code(s): J18.9 - Pneumonia, unspecified organism (2) Sepsis Qualifiers: Sepsis type: sepsis due to unspecified organism Qualified Code(s): A41.9 - Sepsis, unspecified organism (3) Anemia Qualifiers: Anemia type: other cause Other causes of anemia: acute posthemorrhagic Qualified Code(s): D62 - Acute posthemorrhagic anemia (7) Atrial fibrillation Qualifiers: Atrial fibrillation type: paroxysmal Qualified Code(s): I48.0 - Paroxysmal atrial fibrillation (8) Diastolic CHF Qualifiers: Heart failure chronicity: chronic Qualified Code(s): I50.32 - Chronic diastolic (congestive) heart failure (10) Chronic kidney disease Qualifiers: Chronic kidney disease stage: stage 4 (severe) Qualified Code(s): N18.4 - Chronic kidney disease, stage 4 (severe) (11) Leukocytosis Qualifiers: Leukocytosis type: unspecified Qualified Code(s): D72.829 - Elevated white blood cell count, unspecified
[2018-05-07 06:12] LABS: Basophils # 0.1 K/mcL (0.0-0.2); Basophils % 0.5 %; Eosinophils # 0.4 K/mcL (0.0-0.6); Eosinophils % 3.3 %; Hematocrit 26.9 % (35.3-44.9); Hemoglobin 8.4 g/dL (11.5-15.4); Immature Granulocytes % 0.7 % (0-4); Lymphocytes # 0.7 K/mcL (0.6-4.6); Lymphocytes % 6.6 %; Mean Corpuscular HGB Conc 31.2 g/dL (31.6-35.5); Mean Corpuscular Hemoglobin 28.3 pg (28.0-33.3); Mean Corpuscular Volume 90.6 fL (83.0-100.0); Mean Platelet Volume 11.3 fL (9.4-12.4); Monocytes # 1.3 K/mcL (0.0-1.3); Monocytes % 12.2 %; Neutrophils # 8.4 K/mcL (1.6-8.9); Platelet Count 250 K/mcL (140-400); Red Blood Count 2.97 M/mcL (3.82-4.97); Red Cell Distribution Width 15.5 % (11.5-14.5); Segmented Neutrophils % 76.7 %
[2018-05-07 06:32] LABS: Calcium 8.7 mg/dL (8.6-10.3); Potassium 3.9 mEq/L (3.5-5.1)
[2018-05-07] MEDS: hydrALAZINE 25 MG TABLET PO SCH ×3 (08:06→22:13)
[2018-05-07] MEDS: Diltiazem CD (24hr) 120 MG CAPSULE PO SCH (08:07)
[2018-05-07] MEDS: Furosemide 20 MG TABLET PO SCH (08:07)
[2018-05-07] MEDS: cloNIDine HCl 0.1 MG TABLET PO SCH ×3 (08:07→22:13)
[2018-05-07] MEDS: Insulin LISPRO 300 UNITS/3 ML VIAL SQ SCH ×6 (08:39→16:47)
[2018-05-07] MEDS: Insulin DETEMIR 100 UNIT/ML X5UNITS SQ SCH (08:39)
--- NOTE | 2018-05-07 11:26 | General Surgery Progress Note ---
Date of Encounter: 05/07/18 Time of Encounter: 11:00 - Assessment and Plan (1) Colonic mass Current Visit: Yes Status: Acute s/p Colonoscopy with Dr. Schaefer Pathology pending Continue clear liquids today NPO after midnight Plan for colon resection- robotic assisted transverse colon resection with Dr. Hester in the next 24 hours (consent complete) Antibiotic bowel prep ordered Supportive care (2) Acute blood loss anemia Current Visit: Yes Status: Acute Hgb Stable- 8.2>8.4 Total 5 units PRBC transfused- last transfusion 05/03/18 (3) Colon cancer metastasized to liver Current Visit: Yes Status: Chronic Oncology following (4) CKD (chronic kidney disease) stage 3, GFR 30-59 ml/min Current Visit: No Status: Chronic Cr stable Management per medicine service (5) DVT prophylaxis Current Visit: Yes Status: Acute EPCDs to bilateral lower extremities for DVT prophylaxis Ambulate hallways TID with assistance Subjective Patient reports: no new complaints, feels better, tolerating liquids well, voiding w/o difficulty, flatus, bowel movement, afebrile Objective Vital Signs - Last 8 Hours Temp Pulse Resp BP Pulse Ox 05/07/18 07:50 98.3 F 60 15 148/52 97 05/07/18 05:21 98.1 F 63 16 149/63 97 Intake and Output 05/06/18 05/07/18 05/07/18 23:59 07:59 15:59 Intake Total 0 / 0 0 / 0 0 / 0 Output Total 0 / 0 Balance 0 / 0 0 / 0 0 / 0 Intake: Oral 0 / 0 0 / 0 0 / 0 Output: Urine 0 / 0 Other: Meal Breakfast Percent of Meal Consumed 0% # Urine Diapers 1 1 1 Weight 93 kg Blood Glucose* 176 114 Patient Weight 05/07/18 23:59 Weight 93 kg - General physical appearance well developed, well nourished, no distress, no pain - Eyes normal ocular movement - ENT normal mucosa, atraumatic, normocephalic - Neck Neck exam: trachea midline - Respiratory normal respiratory effort, clear to auscultation - Cardiovascular Cardiovascular exam: Present: RRR - Abdomen Abdomen: Present: bowel sounds present, soft, non tender - Neurologic CN 2-12 grossly intact - Psychiatric oriented to time, oriented to person, oriented to place, speech is normal, memory intact - Labs 05/07/18 05:25 09/10/18 05:25 Diabetes panel 05/07/18 Range/Units 05:25 Sodium 134 L (136-145) mEq/L Potassium 3.9 (3.5-5.1) mEq/L Chloride 97 L (98-107) mEq/L Carbon Dioxide 32 H (23-29) mEq/L BUN 25 H (8-23) mg/dL Creatinine 1.62 H (0.60-1.20) mg/dL Glucose 146 H (70-105) mg/dL Calcium 8.7 (8.6-10.3) mg/dL Calcium panel 05/07/18 Range/Units 05:25 Calcium 8.7 (8.6-10.3) mg/dL Pituitary panel 05/07/18 Range/Units 05:25 Sodium 134 L (136-145) mEq/L Potassium 3.9 (3.5-5.1) mEq/L Chloride 97 L (98-107) mEq/L Carbon Dioxide 32 H (23-29) mEq/L BUN 25 H (8-23) mg/dL Creatinine 1.62 H (0.60-1.20) mg/dL Glucose 146 H (70-105) mg/dL Calcium 8.7 (8.6-10.3) mg/dL Adrenal panel 05/07/18 Range/Units 05:25 Sodium 134 L (136-145) mEq/L Potassium 3.9 (3.5-5.1) mEq/L Chloride 97 L (98-107) mEq/L Carbon Dioxide 32 H (23-29) mEq/L BUN 25 H (8-23) mg/dL Creatinine 1.62 H (0.60-1.20) mg/dL Glucose 146 H (70-105) mg/dL Calcium 8.7 (8.6-10.3) mg/dL - VTE Documentation of Mechanical Device: Intermittent pneumatic compression device Consult Discharge Plan - Plan Referrals: Chayo Alvarado MD [Partnered Physician] - 05/10/18 10:40 am Geremias Ryan DO [Primary Care Provider] - - Attending Attestation For this encounter, I have reviewed the [employer] or PA documentation, treatment plan, and medical decision making; and I have had face to face time with this patient.
[2018-05-07] MEDS: Gabapentin 100 MG CAPSULE PO SCH ×2 (12:05→22:13)
[2018-05-07] MEDS: metroNIDAZOLE 500 MG TABLET PO SCH ×3 (14:55→22:13)
--- NOTE | 2018-05-07 16:30 | Internal Med Progress Note ---
Hospitalist Progress Note - Encounter Date of Encounter: 05/07/18 Time of Encounter: 10:40 - Subjective Interval History: Patient is patient is sitting up in chair, drowsy but able to answer questions. Denies chest or abdominal pain, shortness of breath. Awaiting abdominal surgery. - Exam Vitals: Temp Pulse Resp BP Pulse Ox 98.3 F 59 16 134/51 92 05/07/18 16:02 05/07/18 16:02 05/07/18 16:02 05/07/18 16:02 05/07/18 16:02 Exam: General: Obese female sitting up in chair, in no acute distress, asleep but woke up to tactile stimulus Skin: Warm and supple Chest: Normal thoracic expansion. Normal breath sounds. Clear to auscultation anterolaterally. Heart: Normal S1 & S2; irregular rate; Abdomen: Non-distended, soft; nontender; obese Extremities: B/L 2+ pedal edema- improving Neurological: Awake, alert and oriented to person, place. No focal deficits. - Assessment and Plan (1) Colon cancer metastasized to liver Current Visit: Yes Status: Chronic Assessment and Plan: Oncology on board; recommend outpatient PET-CT to further evaluate new liver mass; Colonoscopy during this admission revealed new possibly malignant mass on transverse colon, biopsy pending; plan for transverse colon resection by Surgery tomorrow; continue clear liquid diet. (2) Pneumonia Current Visit: Yes Status: Suspected Assessment and Plan: Chest x-ray showed bibasilar opacities, could be infiltrates versus edema. Blood cultures remain negative. completed a 7-day course of IV Levaquin. improving leukocytosis, 17.5-->13.8-->11 today, which is probably related to underlying malignancy; Continue supplemental oxygen and supportive care. PT/OT evaluation recommended HHS; (3) Sepsis Current Visit: Yes Status: Resolved (4) Anemia Current Visit: Yes Status: Chronic Assessment and Plan: Acute on chronic anemia. Multifactorial- GI bleed due to malignant colonic mass with iron deficiency, chronic kidney disease. Received 5 units blood transfusion during this admission. Hemoglobin is currently stable, around 8.4. (5) DVT prophylaxis Current Visit: Yes Status: Acute (6) Uncontrolled type 2 diabetes mellitus with insulin therapy Current Visit: Yes Status: Chronic Assessment and Plan: Blood sugars noted to be strictly controlled. Will decrease basal and continue bolus insulin regimen. Accu-Chek blood glucose monitoring, diabetic diet. (7) Acute kidney injury superimposed on chronic kidney disease Current Visit: Yes Status: Resolved (8) Atrial fibrillation Current Visit: Yes Status: Chronic Assessment and Plan: Currently rate controlled. Continue telemetry monitoring, beta amos; held ASA and Eliquis due to ongoing anemia. explained risks and benefits to patient, agrees to holding it; (9) Diastolic CHF Current Visit: Yes Status: Chronic (10) Chronic kidney disease Current Visit: Yes Status: Chronic (11) Leukocytosis Current Visit: Yes Status: Acute - Time Spent with Patient Total time spent is greater than 50% in coordination of care (as documented) at patient's floor/unit and/or counseling patient: Plan of Care Discussed with: patient Internal Medicine: Result - Labs CBC & Chem 7: 05/07/18 05:25 05/07/18 05:25 Labs: Short CBC 05/07/18 Range/Units 05:25 WBC 11.0 (4.3-11.1) K/mcL Hgb 8.4 L (11.5-15.4) g/dL Hct 26.9 L (35.3-44.9) % Plt Count 250 (140-400) K/mcL Neutrophils # 8.4 (1.6-8.9) K/mcL BMP 05/07/18 05:25 Sodium 134 L Potassium 3.9 Chloride 97 L Carbon Dioxide 32 H BUN 25 H Creatinine 1.62 H Glucose 146 H Calcium 8.7 - ABG Interpretation ABG results: PT/INR, D-dimer PT 17.6 Seconds (9.4-12.1) H 04/28/18 01:50 - VTE Documentation of Mechanical Device: Intermittent pneumatic compression device Consult Discharge Plan - Plan Referrals: Chayo Alvarado MD [Partnered Physician] - 05/10/18 10:40 am Geremias Ryan DO [Primary Care Provider] - (2) Pneumonia Qualifiers: Pneumonia type: due to unspecified organism Laterality: unspecified laterality Lung location: unspecified part of lung Qualified Code(s): J18.9 - Pneumonia, unspecified organism (3) Sepsis Qualifiers: Sepsis type: sepsis due to unspecified organism Qualified Code(s): A41.9 - Sepsis, unspecified organism (4) Anemia Qualifiers: Anemia type: other cause Other causes of anemia: acute posthemorrhagic Qualified Code(s): D62 - Acute posthemorrhagic anemia (8) Atrial fibrillation Qualifiers: Atrial fibrillation type: paroxysmal Qualified Code(s): I48.0 - Paroxysmal atrial fibrillation (9) Diastolic CHF Qualifiers: Heart failure chronicity: chronic Qualified Code(s): I50.32 - Chronic diastolic (congestive) heart failure (10) Chronic kidney disease Qualifiers: Chronic kidney disease stage: stage 4 (severe) Qualified Code(s): N18.4 - Chronic kidney disease, stage 4 (severe) (11) Leukocytosis Qualifiers: Leukocytosis type: unspecified Qualified Code(s): D72.829 - Elevated white blood cell count, unspecified
--- NOTE | 2018-05-07 20:29 | Anesthesia Evaluation PreOp ---
Date of Encounter: 05/07/18 Time of Encounter: 20:27 - Past History Planned Operation: Robotic lap transverse colon resection poss open Cardiac History: [place], HTN, Arrhythmia (Afib), Cardiac Surgery (CABG x 3), Cardiac Stent (x 2) Pulmonary History: Denies Any Significant HX, Other (recent pneumonia) PHOTOGRAPHIC PLATE MAKER History: Denies Any Significant HX Other Medical History: Hepatic (colon ca with liver mets), Renal (renal ca /p L nephrectomy, ROBERT on CKD), Diabetes Type II, Other (colon ca) Anesthesia History: No Prior Anesthetic Complications, Past Anesthesia (L nephrectomy, colon resection, EGD, colonoscopy) Alcohol Use: none Drug use: none Medications and Allergies Aspirin [Adult Low Dose Aspirin EC] 81 mg PO DAILY 11/15/15 [History] Insulin ASPART [Novolog Flexpen] 15 unit SQ TIDWM MDD + SLIDING SCALE 11/15/15 [ History] Ferrous Sulfate 325 mg PO DAILY 11/29/16 [History] Hydralazine HCl 100 mg PO TID 11/29/16 [History] [place]-3/Dha/Epa/Fish Oil [Fish Oil 1,000 mg Softgel] 1 cap PO DAILY 11/29/16 [ History] cloNIDine HCl [Clonidine HCl] 0.3 mg PO TID #90 tab 03/05/17 [Rx] Albuterol Sulfate [Proair Hfa] 1 puff IH Q4H PRN #1 inh 05/11/17 [Rx] ALPRAZolam [Xanax 0.5 MG Tablet] 0.5 mg PO BID PRN 08/08/17 [History] Apixaban [Eliquis] 2.5 mg PO BID 08/08/17 [History] Pravastatin Sodium [Pravachol] 80 mg PO QPM 08/08/17 [History] Carvedilol [Coreg] 25 mg PO BIDWM #60 tablet 08/18/17 [Rx] Oxygen 2 l NS AD 09/22/17 [History] Furosemide [Lasix] 40 mg PO DAILY PRN 10/19/17 [History] Dulaglutide [Trulicity] 0.75 mg SQ TH 04/13/18 [History] Gabapentin [Neurontin] 100 mg PO BID 04/13/18 [History] Insulin Degludec [Tresiba Flextouch U-200] 62 unit SQ HS 04/13/18 [History] dilTIAZem HCl [Diltiazem 24Hr ER] 120 mg PO DAILY 04/13/18 [History] Mupirocin Calcium [Bactroban Nasal] 1 gm NS BID 5 Days #1 oint...g. 04/16/18 [Rx ] 3 Allergy/AdvReac Type Severity Reaction Status Date / Time Sulfa (Sulfonamide Allergy Severe Swelling Verified 04/10/18 15:11 Antibiotics) of Lip/Tongue/Throat - Meds/Allergy Pre-op Review Medications Reviewed: Yes Allergies Reviewed: Yes Beta Blockers on Current Med List: No Anesthesia Results - Labs 05/07/18 05:25 05/07/18 05:25 - Imaging EKG: report reviewed (Atrial fibrillation/flutter Incomplete RBBB Nonspecific ST -T changes Electronically Signed On 04-30-2018 12:09:52 EDT by Aleksandar Ramirez) Additional studies: Impressions: LVEF 55%. Normal LV chamber size, wall thickness and function. Atypical septal motion consistent with post-operative status. Indeterminate diastolic function. Mildly dilated and hypokinetic right ventricle. Mild mitral regurgitation. Mild tricuspid regurgitation. Moderate-severe pulmonary hypertension. Estimated RVSP is 53-63 mmHg, including an estimated RA pressure of 10-20 mmHg. Anesthesia Exam Vital Signs/O2 Sat, Most Current Temp Pulse Resp BP Pulse Ox 98.4 F 64 22 151/64 96 05/07/18 19:57 05/07/18 19:57 05/07/18 19:57 05/07/18 19:57 05/07/18 19:57 Weight: 93kg NPO (# of Hours): after MN - HEENT Pupil (Motor): Pupils equal, EOMI Mallampati: III Teeth: Normal Oral Opening: Greater than 3 - PHOTOGRAPHIC PLATE MAKER LOC: Oriented PHOTOGRAPHIC PLATE MAKER Motor: Normal RUE, Normal LUE, Normal RLE, Normal LLE, Normal Face PHOTOGRAPHIC PLATE MAKER Sensory: Normal: RUE, LUE, RLE, LLE, Face - Cardiac Rhythm: Irregular - Pulmonary Breath Sounds: bilateral Clear Respiratory Effort: Symmetrical Anesthesia Assess/Plan ASA Score: 3 Modified Westbrook Scale for Level of Consciousness: Cooperative, oriented, and tranquil Anesthetic Plan: General Monitoring Plan: Standard Monitors Recovery Plan: PACU
[2018-05-07] MEDS ORDERED: Insulin DETEMIR 100 UNIT/ML X5UNITS SQ SCH (21:00)
[2018-05-08 05:24] LABS: Basophils # 0.1 K/mcL (0.0-0.2); Basophils % 0.5 %; Eosinophils # 0.3 K/mcL (0.0-0.6); Eosinophils % 2.8 %; Hematocrit 25.8 % (35.3-44.9); Hemoglobin 8.2 g/dL (11.5-15.4); Immature Granulocytes % 0.4 % (0-4); Lymphocytes # 0.7 K/mcL (0.6-4.6); Lymphocytes % 7.4 %; Mean Corpuscular HGB Conc 31.8 g/dL (31.6-35.5); Mean Corpuscular Volume 88.1 fL (83.0-100.0); Mean Platelet Volume 11.3 fL (9.4-12.4); Monocytes # 1.1 K/mcL (0.0-1.3); Monocytes % 11.2 %; Neutrophils # 7.7 K/mcL (1.6-8.9); Platelet Count 238 K/mcL (140-400); Red Blood Count 2.93 M/mcL (3.82-4.97); Red Cell Distribution Width 15.2 % (11.5-14.5); Segmented Neutrophils % 77.7 %
[2018-05-08] MEDS: Insulin LISPRO 300 UNITS/3 ML VIAL SQ SCH ×4 (08:48→16:41)
[2018-05-08] MEDS: Diltiazem CD (24hr) 120 MG CAPSULE PO SCH (08:53)
[2018-05-08] MEDS: Gabapentin 100 MG CAPSULE PO SCH ×2 (08:53→22:30)
--- NOTE | 2018-05-08 13:41 | General Surgery Progress Note ---
Date of Encounter: 05/08/18 Time of Encounter: 11:45 - Assessment and Plan (1) Colonic mass Current Visit: Yes Status: Acute s/p Colonoscopy with Dr. Schaefer Pathology- Colon tumor, biopsy: At least high-grade dysplasia, cannot rule out invasive adenocarcinoma. Continue clear liquids today NPO after midnight Plan for colon resection- robotic assisted transverse colon resection with Dr. Hester in the next 24 hours (consent complete) Antibiotic bowel prep ordered Supportive care (2) Acute blood loss anemia Current Visit: Yes Status: Acute Hgb Stable- 8.2>8.4>8.2 Total 5 units PRBC transfused- last transfusion 05/03/18 (3) Colon cancer metastasized to liver Current Visit: Yes Status: Chronic Oncology following (4) CKD (chronic kidney disease) stage 3, GFR 30-59 ml/min Current Visit: No Status: Chronic Cr stable Management per medicine service (5) DVT prophylaxis Current Visit: Yes Status: Acute EPCDs to bilateral lower extremities for DVT prophylaxis Ambulate hallways TID with assistance Subjective Patient reports: no new complaints, tolerating liquids well, voiding w/o difficulty, flatus, bowel movement, diarrhea, afebrile Objective Vital Signs - Last 8 Hours Temp Pulse Resp BP Pulse Ox 05/08/18 07:51 99.1 F 63 15 157/82 99 Intake and Output 05/07/18 05/08/18 05/08/18 23:59 07:59 15:59 Intake Total 1200 / 1200 0 / 0 Output Total 0 / 0 1700 / 1700 Balance 1200 / 1200 -1700 / -1700 Intake: Oral 1200 / 1200 0 / 0 Output: Urine 0 / 0 Urine/Stool Mix 1700 / 1700 Other: Meal Dinner Percent of Meal Consumed 100% Stool Consistency liquid liquid Stool Color Brown Green Black # Urine Diapers 1 1 Weight 91.3 kg Blood Glucose* 239 183 Patient Weight 05/08/18 23:59 Weight 91.3 kg - General physical appearance well developed, well nourished, no distress, no pain - Eyes normal ocular movement - ENT normal mucosa, atraumatic, normocephalic - Neck Neck exam: trachea midline - Respiratory normal respiratory effort, clear to auscultation - Cardiovascular Cardiovascular exam: Present: RRR - Abdomen Abdomen: Present: bowel sounds present, soft, non tender - Neurologic CN 2-12 grossly intact - Musculoskeletal normal gait, normal posture - Psychiatric oriented to time, oriented to person, oriented to place, speech is normal, memory intact - Labs 05/08/18 04:19 05/07/18 05:25 - VTE Documentation of Mechanical Device: Intermittent pneumatic compression device Consult Discharge Plan - Plan Referrals: Chayo Alvarado MD [Partnered Physician] - 05/10/18 10:40 am Geremias Ryan DO [Primary Care Provider] - - Attending Attestation For this encounter, I have reviewed the INSPECTOR WREATH or PA documentation, treatment plan, and medical decision making; and I have had face to face time with this patient.
--- NOTE | 2018-05-08 16:54 | Internal Med Progress Note ---
Hospitalist Progress Note - Encounter Date of Encounter: 05/08/18 Time of Encounter: 09:00 - Subjective Interval History: Patient denies abdominal pain, nausea, or vomiting. In no acute distress. - Exam Vitals: Temp Pulse Resp BP Pulse Ox 98.8 F 63 17 173/74 97 05/08/18 16:26 05/08/18 07:51 05/08/18 16:26 05/08/18 16:26 05/08/18 16:26 Exam: General: Obese female sitting up in chair, in no acute distress, asleep but woke up to tactile stimulus Skin: Warm and supple Chest: Normal thoracic expansion. Normal breath sounds. Clear to auscultation bilaterally. Heart: Normal S1 & S2; irregular rate; Abdomen: Non-distended, soft; nontender; obese Extremities: B/L 1+ pedal edema- improving Neurological: Awake, alert and oriented to person, place. No focal deficits. - Assessment and Plan (1) DVT prophylaxis Current Visit: Yes Status: Acute Assessment and Plan: on EPCDs; avoid pharmacologic anticoagulation due to anemia; (2) Anemia Current Visit: Yes Status: Chronic Assessment and Plan: Acute on chronic anemia. Multifactorial- GI bleed due to malignant colonic mass with iron deficiency, chronic kidney disease. Received 5 units blood transfusion during this admission. Hemoglobin is currently stable, around 8.4. (3) Leukocytosis Current Visit: Yes Status: Acute Assessment and Plan: Patient is noted to have leukocytosis since admission, has been between 12.9- 20.3; improving now; blood cultures have been negative and patient completed a course of antibiotics for suspected Pneumonia; this is likely due to underlying malignancy and PRBC transfusions; Patient currently has no signs of infection. Continue to monitor closely. (4) Uncontrolled type 2 diabetes mellitus with insulin therapy Current Visit: Yes Status: Chronic Assessment and Plan: Blood sugars noted to be strictly controlled. Will decrease basal and continue bolus insulin regimen. Accu-Chek blood glucose monitoring, diabetic diet. (5) Acute kidney injury superimposed on chronic kidney disease Current Visit: Yes Status: Resolved Assessment and Plan: Serum creatinine stable and slightly improved (6) Atrial fibrillation Current Visit: Yes Status: Chronic Assessment and Plan: Currently rate controlled. Continue telemetry monitoring, beta amos; held ASA and Eliquis due to ongoing anemia. (7) Pneumonia Current Visit: Yes Status: Suspected Assessment and Plan: Chest x-ray showed bibasilar opacities, could be infiltrates versus edema. Blood cultures remain negative. Pt denies fever or cough. completed a 7-day course of IV Levaquin. improving leukocytosis, 17.5-->13.8-->11 today, which is probably related to underlying malignancy; Continue supplemental oxygen and supportive care. PT/OT evaluation recommended HHS; (8) Chronic kidney disease Current Visit: Yes Status: Chronic Assessment and Plan: Serum creatinine stable and improved. avoid nephrotoxic agents; (9) Diastolic CHF Current Visit: Yes Status: Chronic Assessment and Plan: Has diastolic CHF. Last EF was 55%. No acute exacerbation. Continue home meds, hold lasix (10) Colon cancer metastasized to liver Current Visit: Yes Status: Chronic Assessment and Plan: Oncology on board; recommend outpatient PET-CT to further evaluate new liver mass; Colonoscopy during this admission revealed new possibly malignant mass on transverse colon, biopsy pending; plan for transverse colon resection by Surgery tomorrow; continue clear liquid diet. DVT Prophylaxis: EPCDs - Time Spent with Patient Total time spent is greater than 50% in coordination of care (as documented) at patient's floor/unit and/or counseling patient: 30min 25 - 35 minutes Plan of Care Discussed with: patient Internal Medicine: Result - Labs CBC & Chem 7: 05/08/18 04:19 05/07/18 05:25 Labs: Short CBC 05/08/18 Range/Units 04:19 WBC 9.9 (4.3-11.1) K/mcL Hgb 8.2 L (11.5-15.4) g/dL Hct 25.8 L (35.3-44.9) % Plt Count 238 (140-400) K/mcL Neutrophils # 7.7 (1.6-8.9) K/mcL - ABG Interpretation ABG results: PT/INR, D-dimer PT 17.6 Seconds (9.4-12.1) H 04/28/18 01:50 - VTE Documentation of Mechanical Device: Intermittent pneumatic compression device Consult Discharge Plan - Plan Referrals: Chayo Alvarado MD [Partnered Physician] - 05/10/18 10:40 am Geremias Ryan DO [Primary Care Provider] - (2) Anemia Qualifiers: Anemia type: other cause Other causes of anemia: acute posthemorrhagic Qualified Code(s): D62 - Acute posthemorrhagic anemia (3) Leukocytosis Qualifiers: Leukocytosis type: unspecified Qualified Code(s): D72.829 - Elevated white blood cell count, unspecified (6) Atrial fibrillation Qualifiers: Atrial fibrillation type: paroxysmal Qualified Code(s): I48.0 - Paroxysmal atrial fibrillation (7) Pneumonia Qualifiers: Pneumonia type: due to Pneumococcus Laterality: unspecified laterality Lung location: unspecified part of lung Qualified Code(s): J13 - Pneumonia due to Streptococcus pneumoniae (8) Chronic kidney disease Qualifiers: Chronic kidney disease stage: stage 4 (severe) Qualified Code(s): N18.4 - Chronic kidney disease, stage 4 (severe) (9) Diastolic CHF Qualifiers: Heart failure chronicity: chronic Qualified Code(s): I50.32 - Chronic diastolic (congestive) heart failure
[2018-05-08] MEDS ORDERED: *HR* Succinylcholine 200 MG/10 ML VIAL IVP ONE (19:39)
[2018-05-08] MEDS ORDERED: *HR* Rocuronium Bromide 50 MG/5 ML VIAL ONE (19:39)
[2018-05-08] MEDS ORDERED: Dexamethasone 4 MG/ML VIAL ONE (19:39)
[2018-05-08] MEDS ORDERED: Ondansetron 4 MG/2 ML VIAL ONE (19:39)
[2018-05-08] MEDS ORDERED: Lidocaine -MPF 4% 5 ML AMPUL ONE (19:39)
[2018-05-08] MEDS ORDERED: Lidocaine -MPF 2% 2 ML VIAL ONE (19:39)
[2018-05-09] MEDS ORDERED: *HR* Metoprolol 5 MG/5 ML VIAL IVP ONE (02:06)
[2018-05-09] MEDS ORDERED: cloNIDine HCl 0.1 MG TABLET PO ONE (02:20)
[2018-05-09] MEDS: ALPRAZolam 0.5 MG TABLET PO PRN (03:17)
[2018-05-09 05:05] LABS: Basophils # 0.1 K/mcL (0.0-0.2); Basophils % 0.6 %; Eosinophils # 0.3 K/mcL (0.0-0.6); Eosinophils % 2.8 %; Hematocrit 27.4 % (35.3-44.9); Hemoglobin 8.7 g/dL (11.5-15.4); Immature Granulocytes % 0.6 % (0-4); Lymphocytes # 0.7 K/mcL (0.6-4.6); Lymphocytes % 6.1 %; Mean Corpuscular HGB Conc 31.8 g/dL (31.6-35.5); Mean Corpuscular Volume 88.1 fL (83.0-100.0); Mean Platelet Volume 10.9 fL (9.4-12.4); Monocytes # 1.2 K/mcL (0.0-1.3); Monocytes % 10.7 %; Neutrophils # 9.2 K/mcL (1.6-8.9); Platelet Count 240 K/mcL (140-400); Red Blood Count 3.11 M/mcL (3.82-4.97); Red Cell Distribution Width 15.1 % (11.5-14.5); Segmented Neutrophils % 79.2 %
[2018-05-09 05:29] LABS: Calcium 8.7 mg/dL (8.6-10.3); Potassium 3.6 mEq/L (3.5-5.1)
[2018-05-09] MEDS: Diltiazem CD (24hr) 120 MG CAPSULE PO SCH (08:59)
[2018-05-09] MEDS: Gabapentin 100 MG CAPSULE PO SCH ×2 (08:59→22:07)
[2018-05-09] MEDS: Insulin LISPRO 300 UNITS/3 ML VIAL SQ SCH ×3 (09:10→17:59)
[2018-05-09] MEDS ORDERED: *HR* Propofol 200 MG/20 ML VIAL IVP ONE (10:21)
[2018-05-09] MEDS ORDERED: *HR* FentaNYL (PF) 100 MCG/2 ML VIAL ONE (10:21)
[2018-05-09] MEDS ORDERED: *HR* Rocuronium Bromide 50 MG/5 ML VIAL ONE (10:24)
[2018-05-09] MEDS ORDERED: Lidocaine -MPF 2% 2 ML VIAL ONE (10:24)
[2018-05-09] MEDS ORDERED: Lidocaine -MPF 4% 5 ML AMPUL ONE (10:24)
[2018-05-09] MEDS ORDERED: *HR* Succinylcholine 200 MG/10 ML VIAL IVP ONE (10:24)
[2018-05-09] MEDS ORDERED: *HR* Metoprolol 5 MG/5 ML VIAL IVP PRN (10:36)
[2018-05-09] MEDS ORDERED: *HR* HYDROmorphone 2 MG TABLET PO PRN (10:36)
[2018-05-09] MEDS ORDERED: *HR* OxyCODONE Immed Rel 5 MG TABLET PO PRN (10:36)
[2018-05-09] MEDS ORDERED: *HR* Promethazine 25 MG/ML VIAL IVP PRN (10:36)
[2018-05-09] MEDS ORDERED: *HR* HYDROmorphone (PF) 1 MG/ML SYRINGE IVP PRN (10:36)
[2018-05-09] MEDS ORDERED: CefOXitin 2,000 MG VIAL ONE (10:44)
[2018-05-09] MEDS ORDERED: cefOXitin 2,000 MG in Water for inj. (sterile) 20 ML 20 ML IVP ONE (10:48)
[2018-05-09] MEDS ORDERED: Ondansetron 4 MG/2 ML VIAL ONE (11:08)
[2018-05-09] MEDS ORDERED: Dexamethasone 4 MG/ML VIAL ONE (11:08)
[2018-05-09] MEDS ORDERED: Neostigmine Methylsulfate 3 MG/3 ML SYRINGE ONE (11:28)
[2018-05-09] MEDS ORDERED: ALPRAZolam 0.5 MG TABLET PO PRN (14:29)
[2018-05-09] MEDS ORDERED: OXYCODONE Oral CONC 10 MG/0.5 ML ORAL.SYG SL PRN (14:29)
[2018-05-09] MEDS ORDERED: D5% in Water 1,000 ML IVC PRN (14:29)
[2018-05-09] MEDS ORDERED: Dextrose Gel 15 GM/37.5 ML TUBE PO PRN ×2 (14:29)
[2018-05-09] MEDS ORDERED: *HR* Dextrose 50 % in Water (Syg) 50 ML SYRINGE IVP PRN (14:29)
[2018-05-09] MEDS ORDERED: Naloxone 0.4 MG/ML INJ IVP PRN (14:29)
[2018-05-09] MEDS ORDERED: MORPHINE SUL Oral CONC 10 MG/0.5 ML ORAL.SYG PO PRN (14:29)
--- NOTE | 2018-05-09 14:41 | Internal Med Progress Note ---
Hospitalist Progress Note - Encounter Date of Encounter: 05/09/18 Time of Encounter: 09:00 - Subjective Interval History: Patient denies abdominal pain, nausea, or vomiting. In no acute distress. Prepare for surgery today. - Exam Vitals: Temp Pulse Resp BP Pulse Ox 96.9 F L 59 18 181/69 94 05/09/18 14:05 05/09/18 14:05 05/09/18 14:05 05/09/18 14:05 05/09/18 13:50 Exam: General: Obese female sitting up in chair, in no acute distress, asleep but woke up to tactile stimulus Skin: Warm and supple Chest: Normal thoracic expansion. Normal breath sounds. Clear to auscultation bilaterally. Heart: Normal S1 & S2; irregular rate; Abdomen: Non-distended, soft; nontender; obese Extremities: B/L 1+ pedal edema- improving Neurological: Awake, alert and oriented to person, place. No focal deficits. - Assessment and Plan (1) DVT prophylaxis Current Visit: Yes Status: Acute Assessment and Plan: on EPCDs; avoid pharmacologic anticoagulation due to anemia; (2) Anemia Current Visit: Yes Status: Chronic Assessment and Plan: Acute on chronic anemia. Multifactorial- GI bleed due to malignant colonic mass with iron deficiency, chronic kidney disease. Received 5 units blood transfusion during this admission. Hemoglobin is currently stable, around 8.4. (3) Leukocytosis Current Visit: Yes Status: Acute Assessment and Plan: Patient is noted to have leukocytosis since admission, has been between 12.9- 20.3; improving now; blood cultures have been negative and patient completed a course of antibiotics for suspected Pneumonia; this is likely due to underlying malignancy and PRBC transfusions; Patient currently has no signs of infection. Continue to monitor closely. (4) Uncontrolled type 2 diabetes mellitus with insulin therapy Current Visit: Yes Status: Chronic Assessment and Plan: Blood sugars noted to be strictly controlled. Will decrease basal and continue bolus insulin regimen. Accu-Chek blood glucose monitoring, diabetic diet. (5) Acute kidney injury superimposed on chronic kidney disease Current Visit: Yes Status: Resolved Assessment and Plan: Serum creatinine stable and slightly improved (6) Atrial fibrillation Current Visit: Yes Status: Chronic Assessment and Plan: Currently rate controlled. Continue telemetry monitoring, beta amos; held ASA and Eliquis due to ongoing anemia and surgery. (7) Pneumonia Current Visit: Yes Status: Suspected Assessment and Plan: Chest x-ray showed bibasilar opacities, could be infiltrates versus edema. Blood cultures remain negative. Pt denies fever or cough. completed a 7-day course of IV Levaquin. improving leukocytosis, 17.5-->13.8-->11 today, which is probably related to underlying malignancy; Continue supplemental oxygen and supportive care. PT/OT evaluation recommended HHS; (8) Chronic kidney disease Current Visit: Yes Status: Chronic Assessment and Plan: Serum creatinine stable and improved. avoid nephrotoxic agents; (9) Diastolic CHF Current Visit: Yes Status: Chronic Assessment and Plan: Has diastolic CHF. Last EF was 55%. No acute exacerbation. Continue home meds, hold lasix. Patient appears euvolemic (10) Colon cancer metastasized to liver Current Visit: Yes Status: Chronic Assessment and Plan: Oncology on board; recommend outpatient PET-CT to further evaluate new liver mass; Colonoscopy during this admission revealed new possibly malignant mass on transverse colon, biopsy shows at least high-grade dysplasia, cannot rule out invasive adenocarcinoma; plan for transverse colon resection by Surgery today. DVT Prophylaxis: EPCDs - Time Spent with Patient Total time spent is greater than 50% in coordination of care (as documented) at patient's floor/unit and/or counseling patient: 30 min 25 - 35 minutes Plan of Care Discussed with: patient Internal Medicine: Result - Labs CBC & Chem 7: 05/09/18 04:33 05/09/18 04:33 Labs: Short CBC 05/09/18 Range/Units 04:33 WBC 11.6 H (4.3-11.1) K/mcL Hgb 8.7 L (11.5-15.4) g/dL Hct 27.4 L (35.3-44.9) % Plt Count 240 (140-400) K/mcL Neutrophils # 9.2 H (1.6-8.9) K/mcL BMP 05/09/18 04:33 Sodium 137 Potassium 3.6 Chloride 99 Carbon Dioxide 31 H BUN 21 Creatinine 1.42 H Glucose 200 H Calcium 8.7 - ABG Interpretation ABG results: PT/INR, D-dimer PT 17.6 Seconds (9.4-12.1) H 04/28/18 01:50 - VTE Documentation of Mechanical Device: Intermittent pneumatic compression device Consult Discharge Plan - Plan Referrals: Chayo Alvarado MD [Partnered Physician] - 05/10/18 10:40 am Geremias Ryan DO [Primary Care Provider] - (2) Anemia Qualifiers: Anemia type: other cause Other causes of anemia: acute posthemorrhagic Qualified Code(s): D62 - Acute posthemorrhagic anemia (3) Leukocytosis Qualifiers: Leukocytosis type: unspecified Qualified Code(s): D72.829 - Elevated white blood cell count, unspecified (6) Atrial fibrillation Qualifiers: Atrial fibrillation type: paroxysmal Qualified Code(s): I48.0 - Paroxysmal atrial fibrillation (7) Pneumonia Qualifiers: Pneumonia type: due to Pneumococcus Laterality: unspecified laterality Lung location: unspecified part of lung Qualified Code(s): J13 - Pneumonia due to Streptococcus pneumoniae (8) Chronic kidney disease Qualifiers: Chronic kidney disease stage: stage 4 (severe) Qualified Code(s): N18.4 - Chronic kidney disease, stage 4 (severe) (9) Diastolic CHF Qualifiers: Heart failure chronicity: chronic Qualified Code(s): I50.32 - Chronic diastolic (congestive) heart failure
[2018-05-09] MEDS: Acetaminophen IV 1,000 MG/100 ML INFUS..BTL IVPB SCH (16:12)
[2018-05-09] MEDS ORDERED: Insulin LISPRO 300 UNITS/3 ML VIAL SQ SCH (16:30)
[2018-05-09] MEDS: cloNIDine HCl 0.1 MG TABLET PO SCH ×2 (17:52→22:06)
[2018-05-09] MEDS: hydrALAZINE 25 MG TABLET PO SCH ×2 (17:52→22:07)
[2018-05-09] MEDS: 0.9 % Sodium Chloride 1,000 ML IVC SCH (17:53)
[2018-05-09] MEDS: TRULICITY 0.75MG SQ SCH (20:38)
[2018-05-09] MEDS ORDERED: Insulin DETEMIR 100 UNIT/ML X5UNITS SQ SCH (21:00)
[2018-05-10] MEDS: Acetaminophen IV 1,000 MG/100 ML INFUS..BTL IVPB SCH ×2 (00:31→06:33)
[2018-05-10 04:29] LABS: Hematocrit 25.9 % (35.3-44.9); Hemoglobin 8.2 g/dL (11.5-15.4); Immature Granulocytes % 0.5 % (0-4); Lymphocytes # 0.4 K/mcL (0.6-4.6); Lymphocytes % 2.1 %; Mean Corpuscular HGB Conc 31.7 g/dL (31.6-35.5); Mean Corpuscular Hemoglobin 28.2 pg (28.0-33.3); Mean Platelet Volume 10.9 fL (9.4-12.4); Monocytes % 4.7 %; Neutrophils # 18.8 K/mcL (1.6-8.9); Platelet Count 251 K/mcL (140-400); Red Blood Count 2.91 M/mcL (3.82-4.97); Red Cell Distribution Width 15.2 % (11.5-14.5); Segmented Neutrophils % 92.7 %
[2018-05-10 04:46] LABS: Calcium 8.3 mg/dL (8.6-10.3); Magnesium 1.8 mg/dL (1.6-2.6); Phosphorous 4.3 mg/dL (2.7-4.5); Potassium 4.4 mEq/L (3.5-5.1)
[2018-05-10] MEDS: *HR* Heparin 5,000 UNIT/ML VIAL SQ SCH ×2 (06:33→17:49)
[2018-05-10] MEDS: Insulin LISPRO 300 UNITS/3 ML VIAL SQ SCH ×4 (08:35→23:30)
[2018-05-10] MEDS: 0.9 % Sodium Chloride 1,000 ML IVC SCH (09:23)
[2018-05-10] MEDS: Diltiazem CD (24hr) 120 MG CAPSULE PO SCH (09:37)
[2018-05-10] MEDS: Gabapentin 100 MG CAPSULE PO SCH ×2 (09:38→21:55)
[2018-05-10] MEDS: Furosemide 40 MG TABLET PO SCH (09:38)
[2018-05-10] MEDS: hydrALAZINE 25 MG TABLET PO SCH ×3 (09:39→21:54)
[2018-05-10] MEDS: cloNIDine HCl 0.1 MG TABLET PO SCH ×3 (09:39→21:55)
[2018-05-10] MEDS ORDERED: Lidocaine 1% 20 ML MDV INFILT ONE (13:07)
--- NOTE | 2018-05-10 13:14 | General Surgery Progress Note ---
Date of Encounter: 05/10/18 Time of Encounter: 13:00 - Assessment and Plan (1) Colonic mass Current Visit: Yes Status: Acute POD #1 Robotic assisted transverse colon resection, SBR, liver biopsy with Dr. Hester Pathology pending Pathology from colonoscopy (Gul)- Colon tumor, biopsy: At least high-grade dysplasia, cannot rule out invasive adenocarcinoma. Continue clear liquids today IV fluids Supportive care and pain control Out of bed to chair TID, ambulate with assistance IS every 1 hour while awake PPI therapy daily Heparin SQ for DVT prophylaxis Surgery will continue to follow and assess progress (2) Acute blood loss anemia Current Visit: Yes Status: Acute Hgb Stable- 8.2>8.4>8.2>8.7>8.2 Total 5 units PRBC transfused- last transfusion 05/03/18 (3) Colon cancer metastasized to liver Current Visit: Yes Status: Chronic Oncology following Liver biopsies pending (4) CKD (chronic kidney disease) stage 3, GFR 30-59 ml/min Current Visit: No Status: Chronic Cr stable Management per medicine service Avoid nephrotoxic medications (5) DVT prophylaxis Current Visit: Yes Status: Acute Heparin 5,000 units SQ twice daily started this morning EPCDs to bilateral lower extremities for DVT prophylaxis Ambulate hallways TID with assistance Subjective Patient reports: no new complaints, feels better, still having pain (post- operative (controlled)), voiding w/o difficulty, flatus (small amount), bowel movement, afebrile, other (Out of bed to chair) Objective Vital Signs - Last 8 Hours Temp Pulse Resp BP Pulse Ox 05/10/18 11:55 97.8 F 63 15 140/53 100 05/10/18 07:02 97.8 F 61 15 176/56 99 Intake and Output 05/09/18 05/10/18 05/10/18 23:59 07:59 15:59 Intake Total 100 / 100 1100 / 1100 200 / 200 Output Total 950 / 950 Balance 100 / 100 150 / 150 200 / 200 Intake: IV Fluids 100 / 100 1100 / 1100 0.9 % Sodium Chloride 1,000 ML 1000 / 1000 @ 75 mls/hr IVC .[id number] MELO Rx #:[id number] Ofirmev 1,000 mg/100 ml 1,000 100 / 100 100 / 100 mg In 100 ml @ 400 mls/hr IVPB Q6HR MELO Rx#:[id number] Oral 0 / 0 0 / 0 200 / 200 Output: Urine 650 / 650 Stool 300 / 300 Other: Meal Breakfast Percent of Meal Consumed 5% Stool Size Moderate Stool Consistency liquid Stool Color Brown Blood Tinged # Voids 0 0 1 # Urine Diapers 1 # Bowel Movements 1 Weight 90.25 kg Blood Glucose* 237 265 296 Patient Weight 05/10/18 23:59 Weight 90.25 kg - General physical appearance well developed, well nourished, no distress - Eyes normal ocular movement - ENT normal mucosa, atraumatic, normocephalic - Neck Neck exam: trachea midline - Respiratory normal respiratory effort, clear to auscultation - Cardiovascular Cardiovascular exam: Present: RRR - Abdomen Abdomen: Present: bowel sounds present, soft, tender (expected post-operative tenderness) - Incision Incision: Present: intact (Midline with small amount of bleeding noted), approximated - Neurologic CN 2-12 grossly intact - Musculoskeletal normal gait, normal posture - Psychiatric oriented to time, oriented to person, oriented to place, speech is normal, memory intact - Labs 05/10/18 04:14 05/10/18 04:14 Diabetes panel 05/10/18 Range/Units 04:14 Sodium 135 L (136-145) mEq/L Potassium 4.4 (3.5-5.1) mEq/L Chloride 99 (98-107) mEq/L Carbon Dioxide 26 (23-29) mEq/L BUN 24 H (8-23) mg/dL Creatinine 1.50 H (0.60-1.20) mg/dL Glucose 252 H (70-105) mg/dL Calcium 8.3 L (8.6-10.3) mg/dL Calcium panel 05/10/18 Range/Units 04:14 Calcium 8.3 L (8.6-10.3) mg/dL Phosphorus 4.3 (2.7-4.5) mg/dL Pituitary panel 05/10/18 Range/Units 04:14 Sodium 135 L (136-145) mEq/L Potassium 4.4 (3.5-5.1) mEq/L Chloride 99 (98-107) mEq/L Carbon Dioxide 26 (23-29) mEq/L BUN 24 H (8-23) mg/dL Creatinine 1.50 H (0.60-1.20) mg/dL Glucose 252 H (70-105) mg/dL Calcium 8.3 L (8.6-10.3) mg/dL Adrenal panel 05/10/18 Range/Units 04:14 Sodium 135 L (136-145) mEq/L Potassium 4.4 (3.5-5.1) mEq/L Chloride 99 (98-107) mEq/L Carbon Dioxide 26 (23-29) mEq/L BUN 24 H (8-23) mg/dL Creatinine 1.50 H (0.60-1.20) mg/dL Glucose 252 H (70-105) mg/dL Calcium 8.3 L (8.6-10.3) mg/dL - VTE Documentation of Mechanical Device: Intermittent pneumatic compression device Consult Discharge Plan - Plan Referrals: Chayo Alvarado MD [Partnered Physician] - 05/10/18 10:40 am Geremias Ryan DO [Primary Care Provider] - - Attending Attestation For this encounter, I have reviewed the POLYMER SPECIALIST or PA documentation, treatment plan, and medical decision making; and I have had face to face time with this patient.
--- NOTE | 2018-05-10 13:36 | Internal Med Progress Note ---
Hospitalist Progress Note - Encounter Date of Encounter: 05/10/18 Time of Encounter: 09:00 - Subjective Interval History: Patient has transverse colectomy and live biopasy yesterday. Still weak, no fever, no significant pain. C/O right shoulder discomfort but having full ROM. On clear liquid diet. - Exam Vitals: Temp Pulse Resp BP Pulse Ox 97.8 F 63 15 140/53 100 05/10/18 11:55 05/10/18 11:55 05/10/18 11:55 05/10/18 11:55 05/10/18 11:55 Exam: General: Obese female sitting up in chair, in no acute distress, asleep but woke up to tactile stimulus Skin: Warm and supple Chest: Normal thoracic expansion. Normal breath sounds. Clear to auscultation bilaterally. Heart: Normal S1 & S2; irregular rate; Abdomen: Non-distended, soft; nontender; obese, surgical wound well dressed. Extremities: B/L 1+ pedal edema- improving Neurological: Awake, alert and oriented to person, place. No focal deficits. - Assessment and Plan (1) DVT prophylaxis Current Visit: Yes Status: Acute Assessment and Plan: on EPCDs; Heparin SC (2) Anemia Current Visit: Yes Status: Chronic Assessment and Plan: Acute on chronic anemia. Multifactorial- GI bleed due to malignant colonic mass with iron deficiency, chronic kidney disease. Received 5 units blood transfusion during this admission. Hemoglobin is currently stable, around 8.4. (3) Leukocytosis Current Visit: Yes Status: Acute Assessment and Plan: Patient is noted to have leukocytosis since admission, has been between 12.9- 20.3; Higher WBC today, no signs of infection, consider reactive from surgery. (4) Uncontrolled type 2 diabetes mellitus with insulin therapy Current Visit: Yes Status: Chronic Assessment and Plan: Blood sugars noted to be strictly controlled. Will decrease basal and continue bolus insulin regimen. Accu-Chek blood glucose monitoring, diabetic diet. (5) Acute kidney injury superimposed on chronic kidney disease Current Visit: Yes Status: Resolved Assessment and Plan: Serum creatinine stable and slightly improved (6) Atrial fibrillation Current Visit: Yes Status: Chronic Assessment and Plan: Currently rate controlled. Continue telemetry monitoring, beta amos; held ASA and Eliquis due to ongoing anemia and surgery. (7) Pneumonia Current Visit: Yes Status: Suspected Assessment and Plan: Chest x-ray showed bibasilar opacities, could be infiltrates versus edema. Blood cultures remain negative. Pt denies fever or cough. completed a 7-day course of IV Levaquin. improving leukocytosis, 17.5-->13.8-->11 today, which is probably related to underlying malignancy; Continue supplemental oxygen and supportive care. PT/OT evaluation recommended HHS; (8) Chronic kidney disease Current Visit: Yes Status: Chronic Assessment and Plan: Serum creatinine stable and improved. avoid nephrotoxic agents; (9) Diastolic CHF Current Visit: Yes Status: Chronic Assessment and Plan: Has diastolic CHF. Last EF was 55%. No acute exacerbation. Continue home meds, hold lasix. Patient appears euvolemic (10) Colon cancer metastasized to liver Current Visit: Yes Status: Chronic Assessment and Plan: Oncology on board; recommend outpatient PET-CT to further evaluate new liver mass; Colonoscopy during this admission revealed new possibly malignant mass on transverse colon, biopsy shows at least high-grade dysplasia, cannot rule out invasive adenocarcinoma; Had transverse colon resection and liver biopasy by Surgery today, pending pathology. DVT Prophylaxis: EPCDs and heparin sc - Time Spent with Patient Total time spent is greater than 50% in coordination of care (as documented) at patient's floor/unit and/or counseling patient: 30 min 25 - 35 minutes Plan of Care Discussed with: patient Internal Medicine: Result - Labs CBC & Chem 7: 05/10/18 04:14 05/10/18 04:14 Labs: Short CBC 05/10/18 Range/Units 04:14 WBC 20.3 H D (4.3-11.1) K/mcL Hgb 8.2 L (11.5-15.4) g/dL Hct 25.9 L (35.3-44.9) % Plt Count 251 (140-400) K/mcL Neutrophils # 18.8 H (1.6-8.9) K/mcL BMP 05/10/18 04:14 Sodium 135 L Potassium 4.4 Chloride 99 Carbon Dioxide 26 BUN 24 H Creatinine 1.50 H Glucose 252 H Calcium 8.3 L - ABG Interpretation ABG results: PT/INR, D-dimer PT 17.6 Seconds (9.4-12.1) H 04/28/18 01:50 - VTE Documentation of Mechanical Device: Intermittent pneumatic compression device Consult Discharge Plan - Plan Referrals: Chayo Alvarado MD [Partnered Physician] - 05/10/18 10:40 am Geremias Ryan DO [Primary Care Provider] - (2) Anemia Qualifiers: Anemia type: other cause Other causes of anemia: acute posthemorrhagic Qualified Code(s): D62 - Acute posthemorrhagic anemia (3) Leukocytosis Qualifiers: Leukocytosis type: leukemoid reaction Qualified Code(s): D72.823 - Leukemoid reaction (6) Atrial fibrillation Qualifiers: Atrial fibrillation type: paroxysmal Qualified Code(s): I48.0 - Paroxysmal atrial fibrillation (7) Pneumonia Qualifiers: Pneumonia type: due to Pneumococcus Laterality: unspecified laterality Lung location: unspecified part of lung Qualified Code(s): J13 - Pneumonia due to Streptococcus pneumoniae (8) Chronic kidney disease Qualifiers: Chronic kidney disease stage: stage 4 (severe) Qualified Code(s): N18.4 - Chronic kidney disease, stage 4 (severe) (9) Diastolic CHF Qualifiers: Heart failure chronicity: chronic Qualified Code(s): I50.32 - Chronic diastolic (congestive) heart failure
[2018-05-10] MEDS: TRULICITY 0.75MG SQ SCH (18:49)
[2018-05-10] MEDS: Insulin DETEMIR 100 UNIT/ML X5UNITS SQ SCH (21:57)
[2018-05-11] MEDS: 0.9 % Sodium Chloride 1,000 ML IVC SCH ×2 (03:10→16:55)
[2018-05-11 04:08] LABS: Basophils % 0.1 %; Eosinophils % 0.1 %; Hematocrit 22.6 % (35.3-44.9); Hemoglobin 7.1 g/dL (11.5-15.4); Immature Granulocytes % 0.6 % (0-4); Lymphocytes # 0.6 K/mcL (0.6-4.6); Lymphocytes % 4.4 %; Mean Corpuscular HGB Conc 31.4 g/dL (31.6-35.5); Mean Corpuscular Hemoglobin 28.2 pg (28.0-33.3); Mean Corpuscular Volume 89.7 fL (83.0-100.0); Mean Platelet Volume 11.1 fL (9.4-12.4); Monocytes # 1.6 K/mcL (0.0-1.3); Monocytes % 11.1 %; Neutrophils # 12.3 K/mcL (1.6-8.9); Platelet Count 218 K/mcL (140-400); Red Blood Count 2.52 M/mcL (3.82-4.97); Red Cell Distribution Width 15.5 % (11.5-14.5); Segmented Neutrophils % 83.7 %
[2018-05-11 04:26] LABS: Calcium 8.1 mg/dL (8.6-10.3)
[2018-05-11] MEDS: *HR* Heparin 5,000 UNIT/ML VIAL SQ SCH ×2 (06:22→16:56)
--- NOTE | 2018-05-11 07:44 | Operative Note ---
Date of procedure: 05/09/18 Pre-op diagnosis: Transverse colon cancer Post-op diagnosis: other (Mesenteric metastatic deposit with extension to small bowel and ileocolonic anastomosis) Procedure: Robotic splenic flexure takedown, transverse colectomy, and lysis of adhesions Small bowel resection Exporter laparotomy Robotic wedge liver resection Anesthesia: GETA Surgeon: Sammy Hester Was there an purchasing assistant present: Yes Cloud Engagement Partner: Kendra Acevedo Estimated blood loss (cc): 50 Specimen: Transverse colon with associated mesentery and en block small bowel Condition: stable Disposition: floor Procedure in Detail: After informed consent, the patient was taken the operating room placed in supine position. After adequate sedation anesthesia the abdomen was prepped and draped. Pneumoperitoneum was created. A 12 mm cannula site was placed at the level of the umbilicus. 3 additional he millimeter cannulas were placed across the abdomen in line with the umbilical port. Robot was docked. Camera was inserted. There were multiple adhesions around the transverse colon. These were taken down with vessel sealer. Once completed then a splenic flexure takedown was performed. The lateral attachments and splenic flexure attachments were taken down with the vessel sealer. Colon was then rolled to the midline. There is a mass identified in the mesentery which had incorporated a portion of small bowel. Once this had been freed then the mesenteric blood supply was also taken with a vessel sealer. There is a large metastatic deposit in the left lobe of the liver. A wedge liver resection was performed to obtain diagnosis. Once it was fully resected it was retrieved and sent to pathology. At this point a midline incision was made. The transverse colon small bowel and descending colon were brought up through the wound. The terminal ileum was transected with the MANDY 75 mm stapler. Descending colon was taken in the same fashion. Once completed then a portion of small bowel was also resected MANDY 75 mm staplers because it was attached to the mesenteric metastatic tumor. The associated mesentery was taken with Sindhu clamps and 0 silk sutures. Once completed then a small bowel anastomosis was created with the MANDY 75 mm stapler and a TX 60 stapler. Anastomosis was oversewn with 3-0 silk's. The same was performed for the new ileal colonic anastomosis. All specimens were retrieved and sent to pathology. The fascia was then injected with 30 mL of Marcaine. The midline incision was then closed arnold were inserted in the incisions. There was an umbilical hernia which was closed primarily with 0 Vicryl suture. The remainder of the incisions were closed arnold..
[2018-05-11] MEDS: hydrALAZINE 25 MG TABLET PO SCH ×3 (08:10→20:47)
[2018-05-11] MEDS: cloNIDine HCl 0.1 MG TABLET PO SCH ×3 (08:11→20:47)
[2018-05-11] MEDS: Furosemide 40 MG TABLET PO SCH (08:11)
[2018-05-11] MEDS: Insulin LISPRO 300 UNITS/3 ML VIAL SQ SCH ×4 (08:12→20:48)
[2018-05-11] MEDS: Diltiazem CD (24hr) 120 MG CAPSULE PO SCH (08:12)
[2018-05-11] MEDS: Gabapentin 100 MG CAPSULE PO SCH ×2 (08:12→20:48)
[2018-05-11] MEDS: Insulin DETEMIR 100 UNIT/ML X5UNITS SQ SCH (08:22)
--- NOTE | 2018-05-11 09:10 | General Surgery Progress Note ---
Date of Encounter: 05/11/18 Time of Encounter: 08:45 - Assessment and Plan (1) Colonic mass Current Visit: Yes Status: Acute POD #2 Robotic assisted transverse colon resection, SBR, liver biopsy with Dr. Hester Pathology pending Pathology from colonoscopy (Gul)- Colon tumor, biopsy: At least high-grade dysplasia, cannot rule out invasive adenocarcinoma. Continue clear liquids today IV fluids Supportive care and pain control Out of bed to chair TID, ambulate with assistance IS every 1 hour while awake PPI therapy daily Heparin SQ for DVT prophylaxis Surgery will continue to follow and assess progress (2) Acute blood loss anemia Current Visit: Yes Status: Acute Hgb Stable- 8.2>8.4>8.2>8.7>8.2>7.1 Total 5 units PRBC transfused- last transfusion 05/03/18 (3) Colon cancer metastasized to liver Current Visit: Yes Status: Chronic Oncology following Liver biopsies pending (4) CKD (chronic kidney disease) stage 3, GFR 30-59 ml/min Current Visit: No Status: Chronic Cr with slight increase today- 1.5>1.76 Management per medicine service Avoid nephrotoxic medications (5) DVT prophylaxis Current Visit: Yes Status: Acute Heparin 5,000 units SQ twice daily started this morning EPCDs to bilateral lower extremities for DVT prophylaxis Ambulate hallways TID with assistance Subjective Patient reports: no new complaints, feels better, still having pain (post surgical pain), pain is less, tolerating liquids well, voiding w/o difficulty, flatus (1 episode of flatus yesterday, none today), bowel movement (small, liquid BM yesterday), afebrile, other (complaint of mild bloating without nausea ) Objective Vital Signs - Last 8 Hours Temp Pulse Resp BP Pulse Ox 05/11/18 07:09 98.2 F 56 17 142/60 99 05/11/18 05:35 97.4 F L 59 16 134/63 100 Intake and Output 05/10/18 05/11/18 05/11/18 23:59 07:59 15:59 Intake Total 788 / 788 262 / 262 Output Total 0 / 0 0 / 0 Balance 788 / 788 262 / 262 Intake: IV Fluids 788 / 788 212 / 212 0.9 % Sodium Chloride 1,000 ML 788 / 788 212 / 212 @ 75 mls/hr IVC .[id number] MELO Rx #:[id number] Oral 0 / 0 50 / 50 Output: Urine 0 / 0 0 / 0 Other: # Voids 1 Weight 90.6 kg Blood Glucose* 471 241 Patient Weight 05/11/18 23:59 Weight 90.6 kg - General physical appearance well developed, well nourished, no distress - Eyes normal ocular movement - ENT normal mucosa, atraumatic, normocephalic - Neck Neck exam: trachea midline - Respiratory normal respiratory effort, clear to auscultation - Cardiovascular Cardiovascular exam: Present: bradycardia - Abdomen Abdomen: Present: bowel sounds present, soft, distended (mild), tender ( expected post-operative tenderness) - Incision Incision: Present: clean and dry, intact - Neurologic CN 2-12 grossly intact - Psychiatric oriented to time, oriented to person, oriented to place, speech is normal, memory intact - Labs 05/11/18 03:44 05/11/18 03:44 Diabetes panel 05/11/18 Range/Units 03:44 Sodium 133 L (136-145) mEq/L Potassium 4.0 (3.5-5.1) mEq/L Chloride 100 (98-107) mEq/L Carbon Dioxide 27 (23-29) mEq/L BUN 35 H (8-23) mg/dL Creatinine 1.76 H (0.60-1.20) mg/dL Glucose 248 H (70-105) mg/dL Calcium 8.1 L (8.6-10.3) mg/dL Calcium panel 05/11/18 Range/Units 03:44 Calcium 8.1 L (8.6-10.3) mg/dL Pituitary panel 05/11/18 Range/Units 03:44 Sodium 133 L (136-145) mEq/L Potassium 4.0 (3.5-5.1) mEq/L Chloride 100 (98-107) mEq/L Carbon Dioxide 27 (23-29) mEq/L BUN 35 H (8-23) mg/dL Creatinine 1.76 H (0.60-1.20) mg/dL Glucose 248 H (70-105) mg/dL Calcium 8.1 L (8.6-10.3) mg/dL Adrenal panel 05/11/18 Range/Units 03:44 Sodium 133 L (136-145) mEq/L Potassium 4.0 (3.5-5.1) mEq/L Chloride 100 (98-107) mEq/L Carbon Dioxide 27 (23-29) mEq/L BUN 35 H (8-23) mg/dL Creatinine 1.76 H (0.60-1.20) mg/dL Glucose 248 H (70-105) mg/dL Calcium 8.1 L (8.6-10.3) mg/dL - VTE Documentation of Mechanical Device: Intermittent pneumatic compression device Consult Discharge Plan - Plan Referrals: Chayo Alvarado MD [Partnered Physician] - 05/10/18 10:40 am Geremias Ryan DO [Primary Care Provider] - - Attending Attestation For this encounter, I have reviewed the ASSESSMENT RN or PA documentation, treatment plan, and medical decision making; and I have had face to face time with this patient.
--- NOTE | 2018-05-11 12:23 | Internal Med Progress Note ---
Hospitalist Progress Note - Encounter Date of Encounter: 05/11/18 Time of Encounter: 09:00 - Subjective Interval History: Patient has transverse colectomy and live biopasy. POD #2. Still weak, no fever , no significant pain. On clear liquid diet. - Exam Vitals: Temp Pulse Resp BP Pulse Ox 98.3 F 51 17 136/59 99 05/11/18 11:26 05/11/18 11:26 05/11/18 11:26 05/11/18 11:26 05/11/18 11:26 Exam: General: Obese female sitting up in chair, in no acute distress, asleep but woke up to tactile stimulus Skin: Warm and supple Chest: Normal thoracic expansion. Normal breath sounds. Clear to auscultation bilaterally. Heart: Normal S1 & S2; irregular rate; Abdomen: Non-distended, soft; nontender; obese, surgical wound well dressed. Extremities: B/L 1+ pedal edema- improving Neurological: Awake, alert and oriented to person, place. No focal deficits. - Assessment and Plan (1) DVT prophylaxis Current Visit: Yes Status: Acute Assessment and Plan: on EPCDs; Heparin SC (2) Anemia Current Visit: Yes Status: Chronic Assessment and Plan: Acute on chronic anemia. Multifactorial- GI bleed due to malignant colonic mass with iron deficiency, chronic kidney disease. Received 5 units blood transfusion during this admission. Hemoglobin is 7.1 today, possibly due to surgery. cont closely monitoring. consider transfusion if lower than 7. (3) Leukocytosis Current Visit: Yes Status: Acute Assessment and Plan: Patient is noted to have leukocytosis since admission, has been between 12.9- 20.3; WBC trends down today, no signs of infection, consider reactive from surgery. (4) Uncontrolled type 2 diabetes mellitus with insulin therapy Current Visit: Yes Status: Chronic Assessment and Plan: Blood sugars over 200 today. Will increase basal insulin and continue SSI. Accu -Chek blood glucose monitoring, diabetic diet. (5) Acute kidney injury superimposed on chronic kidney disease Current Visit: Yes Status: Resolved Assessment and Plan: Serum creatinine stable and slightly improved (6) Atrial fibrillation Current Visit: Yes Status: Chronic Assessment and Plan: Currently rate controlled. Continue telemetry monitoring, beta amos; held ASA and Eliquis due to ongoing anemia and surgery. (7) Pneumonia Current Visit: Yes Status: Suspected Assessment and Plan: No further fever or cough. Finished abx course. (8) Chronic kidney disease Current Visit: Yes Status: Chronic Assessment and Plan: Serum creatinine stable and improved. avoid nephrotoxic agents; (9) Diastolic CHF Current Visit: Yes Status: Chronic Assessment and Plan: Has diastolic CHF. Last EF was 55%. No acute exacerbation. Continue home meds, hold lasix. Patient appears euvolemic (10) Colon cancer metastasized to liver Current Visit: Yes Status: Chronic Assessment and Plan: Oncology on board; recommend outpatient PET-CT to further evaluate new liver mass; Colonoscopy during this admission revealed new possibly malignant mass on transverse colon, biopsy shows at least high-grade dysplasia, cannot rule out invasive adenocarcinoma; Had transverse colon resection and liver biopasy by Surgery, pending pathology. DVT Prophylaxis: EPCDs and heparin sc - Time Spent with Patient Total time spent is greater than 50% in coordination of care (as documented) at patient's floor/unit and/or counseling patient: 30 min 25 - 35 minutes Plan of Care Discussed with: patient Internal Medicine: Result - Labs CBC & Chem 7: 05/11/18 03:44 05/11/18 03:44 Labs: Short CBC 05/11/18 Range/Units 03:44 WBC 14.7 H (4.3-11.1) K/mcL Hgb 7.1 L (11.5-15.4) g/dL Hct 22.6 L (35.3-44.9) % Plt Count 218 (140-400) K/mcL Neutrophils # 12.3 H (1.6-8.9) K/mcL BMP 05/11/18 03:44 Sodium 133 L Potassium 4.0 Chloride 100 Carbon Dioxide 27 BUN 35 H Creatinine 1.76 H Glucose 248 H Calcium 8.1 L - ABG Interpretation ABG results: PT/INR, D-dimer PT 17.6 Seconds (9.4-12.1) H 04/28/18 01:50 - VTE Documentation of Mechanical Device: Intermittent pneumatic compression device Consult Discharge Plan - Plan Referrals: Chayo Alvarado MD [Partnered Physician] - 05/10/18 10:40 am Geremias Ryan DO [Primary Care Provider] - (2) Anemia Qualifiers: Anemia type: other cause Other causes of anemia: acute posthemorrhagic Qualified Code(s): D62 - Acute posthemorrhagic anemia (3) Leukocytosis Qualifiers: Leukocytosis type: leukemoid reaction Qualified Code(s): D72.823 - Leukemoid reaction (6) Atrial fibrillation Qualifiers: Atrial fibrillation type: paroxysmal Qualified Code(s): I48.0 - Paroxysmal atrial fibrillation (7) Pneumonia Qualifiers: Pneumonia type: due to Pneumococcus Laterality: unspecified laterality Lung location: unspecified part of lung Qualified Code(s): J13 - Pneumonia due to Streptococcus pneumoniae (8) Chronic kidney disease Qualifiers: Chronic kidney disease stage: stage 4 (severe) Qualified Code(s): N18.4 - Chronic kidney disease, stage 4 (severe) (9) Diastolic CHF Qualifiers: Heart failure chronicity: chronic Qualified Code(s): I50.32 - Chronic diastolic (congestive) heart failure
[2018-05-11 15:00] LABS: Hematocrit 22.8 % (35.3-44.9); Hemoglobin 6.8 g/dL (11.5-15.4)
[2018-05-11] MEDS ORDERED: Insulin DETEMIR 100 UNIT/ML X5UNITS SQ SCH ×2 (21:00)
[2018-05-12 06:10] LABS: Basophils % 0.2 %; Eosinophils # 0.2 K/mcL (0.0-0.6); Eosinophils % 1.4 %; Hematocrit 21.7 % (35.3-44.9); Hemoglobin 6.8 g/dL (11.5-15.4); Immature Granulocytes % 0.4 % (0-4); Lymphocytes # 0.7 K/mcL (0.6-4.6); Lymphocytes % 3.9 %; Mean Corpuscular HGB Conc 31.3 g/dL (31.6-35.5); Mean Corpuscular Hemoglobin 27.8 pg (28.0-33.3); Mean Corpuscular Volume 88.6 fL (83.0-100.0); Mean Platelet Volume 11.7 fL (9.4-12.4); Monocytes # 2.2 K/mcL (0.0-1.3); Monocytes % 13.2 %; Neutrophils # 13.8 K/mcL (1.6-8.9); Platelet Count 226 K/mcL (140-400); Red Blood Count 2.45 M/mcL (3.82-4.97); Red Cell Distribution Width 15.6 % (11.5-14.5); Segmented Neutrophils % 80.9 %
[2018-05-12] MEDS: *HR* Heparin 5,000 UNIT/ML VIAL SQ SCH ×2 (06:21→17:57)
[2018-05-12] MEDS: 0.9 % Sodium Chloride 1,000 ML IVC SCH (06:21)
[2018-05-12 06:29] LABS: Calcium 7.8 mg/dL (8.6-10.3)
[2018-05-12] MEDS: Furosemide 40 MG TABLET PO SCH (07:55)
[2018-05-12] MEDS: Gabapentin 100 MG CAPSULE PO SCH ×2 (07:55→21:37)
[2018-05-12] MEDS: hydrALAZINE 25 MG TABLET PO SCH ×3 (07:55→21:37)
[2018-05-12] MEDS: cloNIDine HCl 0.1 MG TABLET PO SCH ×3 (07:56→21:37)
[2018-05-12] MEDS: Diltiazem CD (24hr) 120 MG CAPSULE PO SCH (07:56)
[2018-05-12] MEDS: Insulin LISPRO 300 UNITS/3 ML VIAL SQ SCH ×4 (07:57→21:37)
[2018-05-12] MEDS ORDERED: 0.9 % Sodium Chloride 500 ML ONE (10:04)
[2018-05-12] MEDS: Insulin DETEMIR 100 UNIT/ML X5UNITS SQ SCH ×2 (10:40→21:37)
--- NOTE | 2018-05-12 11:08 | Internal Med Progress Note ---
Hospitalist Progress Note - Encounter Date of Encounter: 05/12/18 Time of Encounter: 09:00 - Subjective Interval History: Patient has transverse colectomy and live biopasy. POD #3. Minimal abd discomfort. Report had BM. No fever. - Exam Vitals: Temp Pulse Resp BP Pulse Ox 99.1 F 59 18 119/45 100 05/12/18 10:42 05/12/18 10:42 05/12/18 10:42 05/12/18 10:42 05/12/18 10:42 Exam: General: Obese female sitting up in chair, in no acute distress Skin: Warm and supple Chest: Normal thoracic expansion. Normal breath sounds. Clear to auscultation bilaterally. Heart: Normal S1 & S2; irregular rate; Abdomen: Non-distended, soft; nontender; obese, surgical wound well dressed. Extremities: B/L 1+ pedal edema Neurological: Awake, alert and oriented to person, place. No focal deficits. - Assessment and Plan (1) DVT prophylaxis Current Visit: Yes Status: Acute Assessment and Plan: on EPCDs; Heparin SC (2) Anemia Current Visit: Yes Status: Chronic Assessment and Plan: Acute on chronic anemia. Multifactorial- GI bleed due to malignant colonic mass with iron deficiency, chronic kidney disease. Received 5 units blood transfusion during this admission. Hemoglobin is 6.8 today, possibly due to surgery blood loss. Transfuse 1 unit of PRBC. (3) Leukocytosis Current Visit: Yes Status: Acute Assessment and Plan: Patient is noted to have leukocytosis since admission, has been between 12.9- 20.3; WBC trends down today, no signs of infection, consider reactive from surgery. (4) Uncontrolled type 2 diabetes mellitus with insulin therapy Current Visit: Yes Status: Chronic Assessment and Plan: On basal insulin and continue SSI. Accu-Chek blood glucose monitoring, diabetic diet. Adjust dose to get better glu control (5) Acute kidney injury superimposed on chronic kidney disease Current Visit: Yes Status: Resolved Assessment and Plan: Serum creatinine stable and slightly improved (6) Atrial fibrillation Current Visit: Yes Status: Chronic Assessment and Plan: Currently rate controlled. Continue telemetry monitoring, beta amos; held ASA and Eliquis due to ongoing anemia and surgery. (7) Pneumonia Current Visit: Yes Status: Suspected Assessment and Plan: No further fever or cough. Finished abx course. (8) Chronic kidney disease Current Visit: Yes Status: Chronic Assessment and Plan: Serum creatinine stable and improved. avoid nephrotoxic agents; (9) Diastolic CHF Current Visit: Yes Status: Chronic Assessment and Plan: Has diastolic CHF. Last EF was 55%. No acute exacerbation. Continue home meds, resume lasix as pt has mild edema on legs. (10) Colon cancer metastasized to liver Current Visit: Yes Status: Chronic Assessment and Plan: Oncology on board; recommend outpatient PET-CT to further evaluate new liver mass; Colonoscopy during this admission revealed new possibly malignant mass on transverse colon, biopsy shows at least high-grade dysplasia, cannot rule out invasive adenocarcinoma; Had transverse colon resection and liver biopasy by Surgery, pending pathology. DVT Prophylaxis: EPCDs and heparin sc - Time Spent with Patient Total time spent is greater than 50% in coordination of care (as documented) at patient's floor/unit and/or counseling patient: 30 min 25 - 35 minutes Plan of Care Discussed with: patient Internal Medicine: Result - Labs CBC & Chem 7: 05/12/18 05:07 05/12/18 05:07 Labs: Short CBC 05/11/18 05/12/18 Range/Units 14:44 05:07 WBC 17.0 H (4.3-11.1) K/mcL Hgb 6.8 L 6.8 L (11.5-15.4) g/dL Hct 22.8 L 21.7 L (35.3-44.9) % Plt Count 226 (140-400) K/mcL Neutrophils # 13.8 H (1.6-8.9) K/mcL BMP 05/12/18 05:07 Sodium 131 L Potassium 4.0 Chloride 100 Carbon Dioxide 24 BUN 37 H Creatinine 1.66 H Glucose 213 H Calcium 7.8 L - ABG Interpretation ABG results: PT/INR, D-dimer PT 17.6 Seconds (9.4-12.1) H 04/28/18 01:50 - VTE Documentation of Mechanical Device: Intermittent pneumatic compression device Consult Discharge Plan - Plan Referrals: Chayo Alvarado MD [Partnered Physician] - 05/10/18 10:40 am Geremias Ryan DO [Primary Care Provider] - (2) Anemia Qualifiers: Anemia type: other cause Other causes of anemia: acute posthemorrhagic Qualified Code(s): D62 - Acute posthemorrhagic anemia (3) Leukocytosis Qualifiers: Leukocytosis type: leukemoid reaction Qualified Code(s): D72.823 - Leukemoid reaction (6) Atrial fibrillation Qualifiers: Atrial fibrillation type: paroxysmal Qualified Code(s): I48.0 - Paroxysmal atrial fibrillation (7) Pneumonia Qualifiers: Pneumonia type: due to Pneumococcus Laterality: unspecified laterality Lung location: unspecified part of lung Qualified Code(s): J13 - Pneumonia due to Streptococcus pneumoniae (8) Chronic kidney disease Qualifiers: Chronic kidney disease stage: stage 4 (severe) Qualified Code(s): N18.4 - Chronic kidney disease, stage 4 (severe) (9) Diastolic CHF Qualifiers: Heart failure chronicity: chronic Qualified Code(s): I50.32 - Chronic diastolic (congestive) heart failure
[2018-05-13] MEDS: 0.9 % Sodium Chloride 1,000 ML IVC SCH (01:51)
[2018-05-13 03:49] LABS: Basophils % 0.2 %; Eosinophils # 0.2 K/mcL (0.0-0.6); Eosinophils % 1.4 %; Hematocrit 26.1 % (35.3-44.9); Hemoglobin 8.3 g/dL (11.5-15.4); Immature Granulocytes % 0.8 % (0-4); Lymphocytes # 0.7 K/mcL (0.6-4.6); Lymphocytes % 4.5 %; Mean Corpuscular HGB Conc 31.8 g/dL (31.6-35.5); Mean Corpuscular Hemoglobin 27.9 pg (28.0-33.3); Mean Corpuscular Volume 87.6 fL (83.0-100.0); Mean Platelet Volume 11.4 fL (9.4-12.4); Monocytes # 2.4 K/mcL (0.0-1.3); Neutrophils # 12.4 K/mcL (1.6-8.9); Platelet Count 222 K/mcL (140-400); Red Blood Count 2.98 M/mcL (3.82-4.97); Red Cell Distribution Width 15.9 % (11.5-14.5); Segmented Neutrophils % 78.1 %
[2018-05-13 04:13] LABS: Calcium 7.8 mg/dL (8.6-10.3); Potassium 4.1 mEq/L (3.5-5.1)
[2018-05-13] MEDS: *HR* Heparin 5,000 UNIT/ML VIAL SQ SCH ×2 (05:29→17:28)
[2018-05-13] MEDS: Insulin LISPRO 300 UNITS/3 ML VIAL SQ SCH ×4 (08:30→20:50)
[2018-05-13] MEDS: Insulin DETEMIR 100 UNIT/ML X5UNITS SQ SCH ×2 (08:32→20:50)
[2018-05-13] MEDS: Diltiazem CD (24hr) 120 MG CAPSULE PO SCH (08:33)
[2018-05-13] MEDS: cloNIDine HCl 0.1 MG TABLET PO SCH ×3 (08:34→20:50)
[2018-05-13] MEDS: hydrALAZINE 25 MG TABLET PO SCH ×3 (08:34→20:49)
[2018-05-13] MEDS: Gabapentin 100 MG CAPSULE PO SCH ×2 (08:34→20:49)
[2018-05-13] MEDS: Furosemide 40 MG TABLET PO SCH (08:34)
--- NOTE | 2018-05-13 10:59 | Internal Med Progress Note ---
Hospitalist Progress Note - Encounter Date of Encounter: 05/13/18 Time of Encounter: 09:00 - Subjective Interval History: Patient has transverse colectomy and live biopasy. POD #4. Minimal abd discomfort. Diet advanced to regular. Cont PT/OT. Pt will d/w daughter regarding placement. SW on case. - Exam Vitals: Temp Pulse Resp BP Pulse Ox 99.1 F 64 16 128/60 100 05/13/18 07:12 05/13/18 07:12 05/13/18 07:12 05/13/18 07:12 05/13/18 07:12 Exam: General: Obese female sitting up in chair, in no acute distress Skin: Warm and supple Chest: Normal thoracic expansion. Normal breath sounds. Clear to auscultation bilaterally. Heart: Normal S1 & S2; irregular rate; Abdomen: Non-distended, soft; nontender; obese, surgical wound well dressed. Extremities: B/L 1+ pedal edema Neurological: Awake, alert and oriented to person, place. No focal deficits. - Assessment and Plan (1) DVT prophylaxis Current Visit: Yes Status: Acute Assessment and Plan: on EPCDs; Heparin SC (2) Anemia Current Visit: Yes Status: Chronic Assessment and Plan: Acute on chronic anemia. Multifactorial- GI bleed due to malignant colonic mass with iron deficiency, chronic kidney disease. Received 5 units blood transfusion during this admission. Hemoglobin is 8.3 after transfusion. Cont monitoring. (3) Leukocytosis Current Visit: Yes Status: Acute Assessment and Plan: Patient is noted to have leukocytosis since admission, has been between 12.9- 20.3; WBC trends down today, no signs of infection, consider reactive from surgery. (4) Uncontrolled type 2 diabetes mellitus with insulin therapy Current Visit: Yes Status: Chronic Assessment and Plan: On basal insulin and continue SSI. Accu-Chek blood glucose monitoring, diabetic diet. Adjust dose to get better glu control (5) Acute kidney injury superimposed on chronic kidney disease Current Visit: Yes Status: Resolved Assessment and Plan: Serum creatinine stable and slightly improved (6) Atrial fibrillation Current Visit: Yes Status: Chronic Assessment and Plan: Currently rate controlled. Continue telemetry monitoring, beta amos; Pt has colon cancer, GI bleed and anemia, will cont hold eliquis, resume baby aspirin. (7) Pneumonia Current Visit: Yes Status: Suspected Assessment and Plan: No further fever or cough. Finished abx course. (8) Chronic kidney disease Current Visit: Yes Status: Chronic Assessment and Plan: Serum creatinine stable and improved. avoid nephrotoxic agents; (9) Diastolic CHF Current Visit: Yes Status: Chronic Assessment and Plan: Has diastolic CHF. Last EF was 55%. No acute exacerbation. Continue home meds. (10) Colon cancer metastasized to liver Current Visit: Yes Status: Chronic Assessment and Plan: Oncology on board; recommend outpatient PET-CT to further evaluate new liver mass; Colonoscopy during this admission revealed new possibly malignant mass on transverse colon, biopsy shows at least high-grade dysplasia, cannot rule out invasive adenocarcinoma; Had transverse colon resection and liver biopasy by Surgery, pending pathology. DVT Prophylaxis: EPCDs and heparin sc - Time Spent with Patient Total time spent is greater than 50% in coordination of care (as documented) at patient's floor/unit and/or counseling patient: 25 - 35 minutes Plan of Care Discussed with: patient Internal Medicine: Result - Labs CBC & Chem 7: 05/13/18 03:31 05/13/18 03:31 Labs: Short CBC 05/13/18 Range/Units 03:31 WBC 15.8 H (4.3-11.1) K/mcL Hgb 8.3 L D (11.5-15.4) g/dL Hct 26.1 L (35.3-44.9) % Plt Count 222 (140-400) K/mcL Neutrophils # 12.4 H (1.6-8.9) K/mcL BMP 05/13/18 03:31 Sodium 128 L Potassium 4.1 Chloride 99 Carbon Dioxide 23 BUN 34 H Creatinine 1.60 H Glucose 237 H Calcium 7.8 L - ABG Interpretation ABG results: PT/INR, D-dimer PT 17.6 Seconds (9.4-12.1) H 04/28/18 01:50 - Impressions Impressions Chest/Abdomen X-ray 05/12/18 07:00 IMPRESSION: Findings suspicious for small bowel obstruction. D/ / 05/12/2018 16:43:32 Veto Yuan MD / tristin Interpreting Provider: Veto Yuan MD - VTE Documentation of Mechanical Device: Intermittent pneumatic compression device Consult Discharge Plan - Plan Referrals: Chayo Alvarado MD [Partnered Physician] - 05/10/18 10:40 am Geremias Ryan DO [Primary Care Provider] - (2) Anemia Qualifiers: Anemia type: other cause Other causes of anemia: acute posthemorrhagic Qualified Code(s): D62 - Acute posthemorrhagic anemia (3) Leukocytosis Qualifiers: Leukocytosis type: leukemoid reaction Qualified Code(s): D72.823 - Leukemoid reaction (6) Atrial fibrillation Qualifiers: Atrial fibrillation type: paroxysmal Qualified Code(s): I48.0 - Paroxysmal atrial fibrillation (7) Pneumonia Qualifiers: Pneumonia type: due to Pneumococcus Laterality: unspecified laterality Lung location: unspecified part of lung Qualified Code(s): J13 - Pneumonia due to Streptococcus pneumoniae (8) Chronic kidney disease Qualifiers: Chronic kidney disease stage: stage 4 (severe) Qualified Code(s): N18.4 - Chronic kidney disease, stage 4 (severe) (9) Diastolic CHF Qualifiers: Heart failure chronicity: chronic Qualified Code(s): I50.32 - Chronic diastolic (congestive) heart failure
--- NOTE | 2018-05-13 12:17 | General Surgery Progress Note ---
Date of Encounter: 05/13/18 Time of Encounter: 12:15 - Assessment and Plan (1) Local recurrence of malignant neoplasm of colon Current Visit: Yes Status: Acute Increase activity and advance diet. Subjective Patient reports: no new complaints Objective Vital Signs - Last 8 Hours Temp Pulse Resp BP Pulse Ox 05/13/18 11:02 98.7 F 63 18 136/57 100 05/13/18 07:12 99.1 F 64 16 128/60 100 05/13/18 04:28 98.4 F 59 16 144/59 100 Intake and Output 05/12/18 05/13/18 05/13/18 23:59 07:59 15:59 Intake Total 1440 / 1440 150 / 150 1101 / 1101 Balance 1440 / 1440 150 / 150 1101 / 1101 Intake: IV Fluids 1000 / 1000 621 / 621 0.9 % Sodium Chloride 1,000 ML 1000 / 1000 621 / 621 @ 75 mls/hr IVC .[id number] [facility] Rx #:[id number] Oral 440 / 440 150 / 150 480 / 480 Other: Meal Dinner Breakfast Percent of Meal Consumed 75% 100% # Voids 0 0 # Urine Diapers 1 1 Weight 98.2 kg Blood Glucose* 381 216 223 Patient Weight 05/13/18 23:59 Weight 98.2 kg - General physical appearance well developed, well nourished - Eyes PERRL - ENT normal nares - Neck Neck exam: trachea midline - Respiratory normal expansion - Abdomen Abdomen: Present: bowel sounds present, soft - Integumentary no growths - Neurologic CN 2-12 grossly intact - Psychiatric oriented to time, oriented to person, oriented to place - Labs 05/13/18 03:31 05/13/18 03:31 Diabetes panel 05/13/18 Range/Units 03:31 Sodium 128 L (136-145) mEq/L Potassium 4.1 (3.5-5.1) mEq/L Chloride 99 (98-107) mEq/L Carbon Dioxide 23 (23-29) mEq/L BUN 34 H (8-23) mg/dL Creatinine 1.60 H (0.60-1.20) mg/dL Glucose 237 H (70-105) mg/dL Calcium 7.8 L (8.6-10.3) mg/dL Calcium panel 05/13/18 Range/Units 03:31 Calcium 7.8 L (8.6-10.3) mg/dL Pituitary panel 05/13/18 Range/Units 03:31 Sodium 128 L (136-145) mEq/L Potassium 4.1 (3.5-5.1) mEq/L Chloride 99 (98-107) mEq/L Carbon Dioxide 23 (23-29) mEq/L BUN 34 H (8-23) mg/dL Creatinine 1.60 H (0.60-1.20) mg/dL Glucose 237 H (70-105) mg/dL Calcium 7.8 L (8.6-10.3) mg/dL Adrenal panel 05/13/18 Range/Units 03:31 Sodium 128 L (136-145) mEq/L Potassium 4.1 (3.5-5.1) mEq/L Chloride 99 (98-107) mEq/L Carbon Dioxide 23 (23-29) mEq/L BUN 34 H (8-23) mg/dL Creatinine 1.60 H (0.60-1.20) mg/dL Glucose 237 H (70-105) mg/dL Calcium 7.8 L (8.6-10.3) mg/dL - VTE Documentation of Mechanical Device: Intermittent pneumatic compression device Consult Discharge Plan - Plan Referrals: Chayo Alvarado MD [Partnered Physician] - 05/10/18 10:40 am Geremias Ryan DO [Primary Care Provider] -
--- NOTE | 2018-05-13 21:22 | Event Note ---
Date of Encounter: 05/13/18 Time of Encounter: 20:32 Alerted by patient's nurse BAO Rodriguez that patient was heavily saturating her dressings post transverse colectomy with liver biopsy which was done on . Nurse stated dressings have been changed 2 times since 19:00. Spoke with Dr. Hester requested an x-ray abdominal series be placed for morning. Nurse requested I come see patient. Nurse also stated patient had a temperature of 99.1F orally w/warmth to left side of abdomen. Reviewed pts. chart and saw fluctuating Hgb levels (8.2 on 05/10, 7.1 on 05/11, 6.8 on 05/11, 6.8 on 05/12, 8.3 on 05/13) and ordered timed H/H Q6HR. Went to see pt. who was resting in bed and stated that she felt bloated and as though she needed to pass gas in order to relieve the pressure in her abdomen. I asked the pt. if she felt up to having a CT of her abdomen/pelvis done tonight to which said yes. Will begin with CT of the abdomen/pelvis w/o contrast d/t pts. current renal dysfunction and determine if Dr. Hester needs to be notified tonight of further interventions. CT ordered. Pt., drainage, and VS to be monitored closely.
[2018-05-13 21:24] LABS: Hematocrit 26.7 % (35.3-44.9); Hemoglobin 8.5 g/dL (11.5-15.4)
[2018-05-13 22:13] LABS: Albumin 2.6 g/dL (3.5-5.7); Albumin/Globulin Ratio 0.9 (1.1-2.2); Bilirubin,Direct 0.1 mg/dL (0.0-0.2); Bilirubin,Indirect 0.2 mg/dL (0.0-1.2); Bilirubin,Total 0.3 mg/dL (0.3-1.0); Total Protein 5.6 g/dL (6.4-8.9)
[2018-05-14 03:42] LABS: Basophils % 0.1 %; Eosinophils # 0.3 K/mcL (0.0-0.6); Eosinophils % 2.1 %; Hematocrit 24.5 % (35.3-44.9); Hemoglobin 7.8 g/dL (11.5-15.4); Immature Granulocytes % 0.5 % (0-4); Lymphocytes # 0.6 K/mcL (0.6-4.6); Lymphocytes % 4.1 %; Mean Corpuscular HGB Conc 31.8 g/dL (31.6-35.5); Mean Corpuscular Hemoglobin 27.4 pg (28.0-33.3); Mean Platelet Volume 11.5 fL (9.4-12.4); Monocytes # 1.9 K/mcL (0.0-1.3); Monocytes % 12.5 %; Neutrophils # 12.2 K/mcL (1.6-8.9); Platelet Count 229 K/mcL (140-400); Red Blood Count 2.85 M/mcL (3.82-4.97); Red Cell Distribution Width 15.7 % (11.5-14.5); Segmented Neutrophils % 80.7 %
[2018-05-14 04:04] LABS: Calcium 8.2 mg/dL (8.6-10.3); Potassium 3.8 mEq/L (3.5-5.1)
[2018-05-14] MEDS: *HR* Heparin 5,000 UNIT/ML VIAL SQ SCH ×2 (05:45→18:29)
--- NOTE | 2018-05-14 09:53 | General Surgery Progress Note ---
Date of Encounter: 05/14/18 Time of Encounter: 09:53 - Assessment and Plan (1) Colonic mass Current Visit: Yes Status: Acute POD #5 Robotic assisted transverse colon resection, SBR, liver biopsy with Dr. Hester BM overnight, less bloating and nausea today AAS-mild air filled prominence of small bowl loops Plan: Possible Ileus, further diet recommendations after review with surgeon Surgical pathology pending, oncology following Supportive care and pain management PT/OT OOB to chair TID/ ambulation with assistance Incentive spirometry PPI/ dvt prophylaxis (2) Acute blood loss anemia Current Visit: No Status: Acute Primary team is monitoring H/H Received 6 units PRBCs, with last transfusion on 05/12/2018 Transfuse as necessary (3) Colon cancer metastasized to liver Current Visit: Yes Status: Chronic Liver biopsied at time of surgery, pathology pending Oncology following (4) CKD (chronic kidney disease) stage 3, GFR 30-59 ml/min Current Visit: No Status: Chronic creatinine improved, Ucr 1.55 today Avoid nephrotoxic agents (5) Uncontrolled type 2 diabetes mellitus with insulin therapy Current Visit: Yes Status: Chronic Management per primary team. Insulin dose adjustment for better control (6) DVT prophylaxis Current Visit: Yes Status: Acute Heparin SQ 5000 units Q12H EPCD's ambulation TID with assistance Subjective Patient reports: no new complaints, pain is less, voiding w/o difficulty, flatus (Flatus overnight with BM), bowel movement (large loose BM this morning) , afebrile, other (Reports less bloating and no nausea today) Objective Vital Signs - Last 8 Hours Temp Pulse Resp BP Pulse Ox 05/14/18 04:17 98.3 F 51 18 146/60 99 Intake and Output 05/13/18 05/14/18 05/14/18 23:59 07:59 15:59 Intake Total 120 / 120 220 / 220 360 / 360 Balance 120 / 120 220 / 220 360 / 360 Intake: IV Fluids 0 / 0 0.9 % Sodium Chloride 1,000 ML 0 / 0 @ 75 mls/hr IVC .[id number] [facility] Rx #:[id number] Oral 120 / 120 220 / 220 360 / 360 Other: Meal Dinner Breakfast Percent of Meal Consumed 5% 90% Stool Size Smear Copious Stool Consistency loose loose Stool Color Brown Brown # Urine Diapers 1 1 1 # Bowel Movement Diapers 1 1 Weight 98.2 kg Blood Glucose* 261 Patient Weight 05/14/18 23:59 Weight 98.2 kg - General physical appearance well developed, well nourished, no distress - Eyes normal ocular movement - ENT normal mucosa, atraumatic, normocephalic - Neck Neck exam: trachea midline, no venous distension - Respiratory normal expansion, normal respiratory effort - Cardiovascular Cardiovascular exam: Present: irregular rhythm - Abdomen Abdomen: Present: bowel sounds present, soft, distended (mildly), tender ( Expected post surgical tenderness), wound (ecchymosis of left abdominal wall and side) - Incision Incision: Present: clean and dry, intact - Neurologic CN 2-12 grossly intact - Musculoskeletal normal posture - Psychiatric oriented to time, oriented to person, oriented to place, speech is normal - Labs 05/14/18 09:40 05/14/18 02:58 Diabetes panel 05/13/18 05/14/18 Range/Units 21:38 02:58 Sodium 131 L (136-145) mEq/L Potassium 3.8 (3.5-5.1) mEq/L Chloride 101 (98-107) mEq/L Carbon Dioxide 25 (23-29) mEq/L BUN 35 H (8-23) mg/dL Creatinine 1.55 H (0.60-1.20) mg/dL Glucose 210 H (70-105) mg/dL Calcium 8.2 L (8.6-10.3) mg/dL AST 12 L (13-39) Units/L ALT 10 (7-52) Units/L Alkaline Phosphatase 109 H (34-104) Units/L Albumin 2.6 L (3.5-5.7) g/dL Calcium panel 05/13/18 05/14/18 Range/Units 21:38 02:58 Calcium 8.2 L (8.6-10.3) mg/dL Albumin 2.6 L (3.5-5.7) g/dL Pituitary panel 05/14/18 Range/Units 02:58 Sodium 131 L (136-145) mEq/L Potassium 3.8 (3.5-5.1) mEq/L Chloride 101 (98-107) mEq/L Carbon Dioxide 25 (23-29) mEq/L BUN 35 H (8-23) mg/dL Creatinine 1.55 H (0.60-1.20) mg/dL Glucose 210 H (70-105) mg/dL Calcium 8.2 L (8.6-10.3) mg/dL Adrenal panel 05/13/18 05/14/18 Range/Units 21:38 02:58 Sodium 131 L (136-145) mEq/L Potassium 3.8 (3.5-5.1) mEq/L Chloride 101 (98-107) mEq/L Carbon Dioxide 25 (23-29) mEq/L BUN 35 H (8-23) mg/dL Creatinine 1.55 H (0.60-1.20) mg/dL Glucose 210 H (70-105) mg/dL Calcium 8.2 L (8.6-10.3) mg/dL Total Bilirubin 0.3 (0.3-1.0) mg/dL AST 12 L (13-39) Units/L ALT 10 (7-52) Units/L Alkaline Phosphatase 109 H (34-104) Units/L Albumin 2.6 L (3.5-5.7) g/dL - VTE Documentation of Mechanical Device: Intermittent pneumatic compression device Consult Discharge Plan - Plan Referrals: Chayo Alvarado MD [Partnered Physician] - 05/10/18 10:40 am Geremias Ryan DO [Primary Care Provider] -
[2018-05-14 10:10] LABS: Hematocrit 24.4 % (35.3-44.9); Hemoglobin 7.7 g/dL (11.5-15.4)
[2018-05-14] MEDS: Insulin LISPRO 300 UNITS/3 ML VIAL SQ SCH ×2 (10:22→16:37)
[2018-05-14] MEDS: hydrALAZINE 25 MG TABLET PO SCH ×3 (10:23→20:54)
[2018-05-14] MEDS: cloNIDine HCl 0.1 MG TABLET PO SCH ×3 (10:24→20:54)
[2018-05-14] MEDS: Aspirin Enteric Coated 81 MG Tablet PO SCH (10:24)
[2018-05-14] MEDS: Furosemide 40 MG TABLET PO SCH (10:24)
[2018-05-14] MEDS: Diltiazem CD (24hr) 120 MG CAPSULE PO SCH (10:24)
[2018-05-14] MEDS: Gabapentin 100 MG CAPSULE PO SCH ×2 (10:24→20:54)
[2018-05-14] MEDS: Insulin DETEMIR 100 UNIT/ML X5UNITS SQ SCH ×2 (10:26→20:54)
--- NOTE | 2018-05-14 11:33 | Internal Med Progress Note ---
Hospitalist Progress Note - Encounter Date of Encounter: 05/14/18 Time of Encounter: 08:00 - Subjective Interval History: Patient has transverse colectomy and live biopasy. POD #5. Minimal abd discomfort. Diet advanced to regular. Denies N/V. Cont PT/OT. Pt still has trend down H/H, cont closely monitoring. - Exam Vitals: Temp Pulse Resp BP Pulse Ox 98.9 F 65 20 162/68 99 05/14/18 09:43 05/14/18 09:43 05/14/18 09:43 05/14/18 09:43 05/14/18 09:43 Exam: General: Obese female sitting up in chair, in no acute distress Skin: Warm and supple Chest: Normal thoracic expansion. Normal breath sounds. Clear to auscultation bilaterally. Heart: Normal S1 & S2; irregular rate; Abdomen: Non-distended, soft; nontender; obese, surgical wound well dressed. Extremities: B/L 1+ pedal edema Neurological: Awake, alert and oriented to person, place. No focal deficits. - Assessment and Plan (1) DVT prophylaxis Current Visit: Yes Status: Acute Assessment and Plan: on EPCDs; Heparin SC (2) Anemia Current Visit: Yes Status: Chronic Assessment and Plan: Acute on chronic anemia. Multifactorial- GI bleed due to malignant colonic mass with iron deficiency, chronic kidney disease. Received 6 units blood transfusion during this admission. Hemoglobin is 7.7 today. Will cont closely monitor H/H, transfuse as needed. (3) Leukocytosis Current Visit: Yes Status: Acute Assessment and Plan: Patient is noted to have leukocytosis since admission, has been between 12.9- 20.3; WBC is generally trending down, no signs of infection, Cont closely monitor. (4) Uncontrolled type 2 diabetes mellitus with insulin therapy Current Visit: Yes Status: Chronic Assessment and Plan: On basal insulin and continue SSI. Accu-Chek blood glucose monitoring, diabetic diet. Adjust dose to get better glu control (5) Acute kidney injury superimposed on chronic kidney disease Current Visit: Yes Status: Resolved Assessment and Plan: Serum creatinine stable and slightly improved (6) Atrial fibrillation Current Visit: Yes Status: Chronic Assessment and Plan: Currently rate controlled. Continue telemetry monitoring, beta amos; Pt has colon cancer, GI bleed and anemia, will cont hold eliquis, resume baby aspirin. (7) Pneumonia Current Visit: Yes Status: Suspected Assessment and Plan: No further fever or cough. Finished abx course. (8) Chronic kidney disease Current Visit: Yes Status: Chronic Assessment and Plan: Serum creatinine stable and improved. avoid nephrotoxic agents; (9) Diastolic CHF Current Visit: Yes Status: Chronic Assessment and Plan: Has diastolic CHF. Last EF was 55%. No acute exacerbation. Continue home meds. (10) Colon cancer metastasized to liver Current Visit: Yes Status: Chronic Assessment and Plan: Oncology on board; recommend outpatient PET-CT to further evaluate new liver mass; Colonoscopy during this admission revealed new possibly malignant mass on transverse colon, biopsy shows at least high-grade dysplasia, cannot rule out invasive adenocarcinoma; Had transverse colon resection and liver biopasy by Surgery, pending pathology. DVT Prophylaxis: EPCDs and heparin sc - Time Spent with Patient Total time spent is greater than 50% in coordination of care (as documented) at patient's floor/unit and/or counseling patient: 30 min 25 - 35 minutes Plan of Care Discussed with: patient Internal Medicine: Result - Labs CBC & Chem 7: 05/14/18 09:40 05/14/18 02:58 Labs: Short CBC 05/13/18 05/14/18 05/14/18 Range/Units 21:09 02:58 09:40 WBC 15.1 H (4.3-11.1) K/mcL Hgb 8.5 L 7.8 L 7.7 L (11.5-15.4) g/dL Hct 26.7 L 24.5 L 24.4 L (35.3-44.9) % Plt Count 229 (140-400) K/mcL Neutrophils # 12.2 H (1.6-8.9) K/mcL BMP 05/14/18 02:58 Sodium 131 L Potassium 3.8 Chloride 101 Carbon Dioxide 25 BUN 35 H Creatinine 1.55 H Glucose 210 H Calcium 8.2 L Liver Function 05/13/18 Range/Units 21:38 Total Bilirubin 0.3 (0.3-1.0) mg/dL Direct Bilirubin 0.1 (0.0-0.2) mg/dL AST 12 L (13-39) Units/L ALT 10 (7-52) Units/L Alkaline Phosphatase 109 H (34-104) Units/L Albumin 2.6 L (3.5-5.7) g/dL - ABG Interpretation ABG results: PT/INR, D-dimer PT 17.6 Seconds (9.4-12.1) H 04/28/18 01:50 - Impressions Impressions Abdomen/Pelvis CT 05/13/18 20:48 IMPRESSION: Interval surgery with resection of the previously seen mass. Mild small bowel dilatation likely is on the basis of a postoperative ileus. No definite bowel obstruction. Interval development of small pleural effusions and bibasilar lung opacities which likely represent atelectasis. D/ / 05/13/2018 23:00:51 Silvestre Alston MD / lizz Interpreting Provider: Silvestre Alston MD Chest/Abdomen X-ray 05/14/18 06:00 IMPRESSION: Stable chest with mild bibasilar atelectasis versus infiltrates along with small bilateral pleural effusions and stable cardiomegaly. Stable appearance to the abdomen with mild diffuse air-filled prominence of small bowel loops which may be on the basis of postoperative ileus or small bowel obstruction. Suggest continued follow-up. D/ / 05/14/2018 10:02:06 Jorge Grant MD / lizz Interpreting Provider: Jorge Grant MD - VTE Documentation of Mechanical Device: Intermittent pneumatic compression device Consult Discharge Plan - Plan Referrals: Chayo Alvarado MD [Partnered Physician] - 05/10/18 10:40 am Geremias Ryan DO [Primary Care Provider] - (2) Anemia Qualifiers: Anemia type: other cause Other causes of anemia: acute posthemorrhagic Qualified Code(s): D62 - Acute posthemorrhagic anemia (3) Leukocytosis Qualifiers: Leukocytosis type: leukemoid reaction Qualified Code(s): D72.823 - Leukemoid reaction (6) Atrial fibrillation Qualifiers: Atrial fibrillation type: paroxysmal Qualified Code(s): I48.0 - Paroxysmal atrial fibrillation (7) Pneumonia Qualifiers: Pneumonia type: due to Pneumococcus Laterality: unspecified laterality Lung location: unspecified part of lung Qualified Code(s): J13 - Pneumonia due to Streptococcus pneumoniae (8) Chronic kidney disease Qualifiers: Chronic kidney disease stage: stage 4 (severe) Qualified Code(s): N18.4 - Chronic kidney disease, stage 4 (severe) (9) Diastolic CHF Qualifiers: Heart failure chronicity: chronic Qualified Code(s): I50.32 - Chronic diastolic (congestive) heart failure
[2018-05-14] MEDS ORDERED: Insulin LISPRO 300 UNITS/3 ML VIAL SQ ONE (13:33)
[2018-05-14 14:45] LABS: Hematocrit 25.8 % (35.3-44.9); Hemoglobin 8.2 g/dL (11.5-15.4)
[2018-05-14] MEDS ORDERED: Insulin LISPRO 300 UNITS/3 ML VIAL SQ SCH (21:00)
[2018-05-15 06:19] LABS: Basophils % 0.3 %; Eosinophils # 0.3 K/mcL (0.0-0.6); Eosinophils % 2.8 %; Hemoglobin 7.5 g/dL (11.5-15.4); Immature Granulocytes % 0.6 % (0-4); Lymphocytes # 0.8 K/mcL (0.6-4.6); Lymphocytes % 6.5 %; Mean Corpuscular HGB Conc 32.6 g/dL (31.6-35.5); Mean Corpuscular Hemoglobin 27.8 pg (28.0-33.3); Mean Corpuscular Volume 85.2 fL (83.0-100.0); Mean Platelet Volume 10.9 fL (9.4-12.4); Monocytes # 1.8 K/mcL (0.0-1.3); Neutrophils # 8.9 K/mcL (1.6-8.9); Platelet Count 245 K/mcL (140-400); Red Cell Distribution Width 15.5 % (11.5-14.5); Segmented Neutrophils % 74.8 %
[2018-05-15] MEDS: *HR* Heparin 5,000 UNIT/ML VIAL SQ SCH ×2 (06:32→17:45)
[2018-05-15 06:35] LABS: Calcium 8.3 mg/dL (8.6-10.3); Potassium 3.9 mEq/L (3.5-5.1)
[2018-05-15] MEDS: Furosemide 40 MG TABLET PO SCH (08:26)
[2018-05-15] MEDS: Aspirin Enteric Coated 81 MG Tablet PO SCH (08:26)
[2018-05-15] MEDS: cloNIDine HCl 0.1 MG TABLET PO SCH ×3 (08:27→20:21)
[2018-05-15] MEDS: Diltiazem CD (24hr) 120 MG CAPSULE PO SCH (08:27)
[2018-05-15] MEDS: hydrALAZINE 25 MG TABLET PO SCH ×3 (08:27→20:21)
[2018-05-15] MEDS: Gabapentin 100 MG CAPSULE PO SCH ×2 (08:27→20:21)
[2018-05-15] MEDS: Insulin LISPRO 300 UNITS/3 ML VIAL SQ SCH ×3 (08:28→17:46)
[2018-05-15] MEDS: Insulin DETEMIR 100 UNIT/ML X5UNITS SQ SCH ×3 (08:34→21:52)
--- NOTE | 2018-05-15 08:45 | General Surgery Progress Note ---
Date of Encounter: 05/15/18 Time of Encounter: 08:30 - Assessment and Plan (1) Colon cancer metastasized to liver Current Visit: Yes Status: Chronic Date of procedure: 05/09/18 Pre-op diagnosis: Transverse colon cancer Post-op diagnosis: other (Mesenteric metastatic deposit with extension to small bowel and ileocolonic anastomosis) Procedure:Robotic splenic flexure takedown, transverse colectomy, and lysis of adhesions Small bowel resection Exporter laparotomy Robotic wedge liver resection Anesthesia: GETA Surgeon: Sammy Hester POD #6 as above. Final pathology remains pending. She is having bowel function, pain is controlled, VSS, afebrile. OK to d/c from a surgical perscptive. OK to leave midline open to air. DC rx has been sent to [facility]. Follow-up in office with Sabina Hester APRN in 2 weeks/ d/c planning per primary team. Subjective Patient reports: no new complaints, feels better, pain is less, tolerating a regular diet, voiding w/o difficulty, flatus, bowel movement, afebrile Objective Vital Signs - Last 8 Hours Temp Pulse Resp BP 05/15/18 07:43 98.3 F 56 17 144/68 Intake and Output 05/14/18 05/15/18 05/15/18 23:59 07:59 15:59 Intake Total 0 / 0 Balance 0 / 0 Intake: Oral 0 / 0 Other: # Voids 1 # Urine Diapers 1 Weight 97.5 kg Blood Glucose* 169 145 Patient Weight 05/15/18 23:59 Weight 97.5 kg - General physical appearance no distress, no pain - Eyes normal ocular movement - ENT atraumatic, normocephalic - Neck Neck exam: trachea midline - Respiratory normal expansion, normal respiratory effort, clear to auscultation - Cardiovascular Cardiovascular exam: Present: RRR - Abdomen Abdomen: Present: bowel sounds present, soft, non tender - Incision Incision: Present: clean and dry, intact - Integumentary no growths - Neurologic normal sensation - Musculoskeletal normal posture - Psychiatric oriented to time, oriented to person, oriented to place, speech is normal, memory intact - Labs 05/15/18 06:02 05/15/18 06:02 Diabetes panel 05/15/18 Range/Units 06:02 Sodium 135 L (136-145) mEq/L Potassium 3.9 (3.5-5.1) mEq/L Chloride 103 (98-107) mEq/L Carbon Dioxide 27 (23-29) mEq/L BUN 33 H (8-23) mg/dL Creatinine 1.58 H (0.60-1.20) mg/dL Glucose 133 H (70-105) mg/dL Calcium 8.3 L (8.6-10.3) mg/dL Calcium panel 05/15/18 Range/Units 06:02 Calcium 8.3 L (8.6-10.3) mg/dL Pituitary panel 05/15/18 Range/Units 06:02 Sodium 135 L (136-145) mEq/L Potassium 3.9 (3.5-5.1) mEq/L Chloride 103 (98-107) mEq/L Carbon Dioxide 27 (23-29) mEq/L BUN 33 H (8-23) mg/dL Creatinine 1.58 H (0.60-1.20) mg/dL Glucose 133 H (70-105) mg/dL Calcium 8.3 L (8.6-10.3) mg/dL Adrenal panel 05/15/18 Range/Units 06:02 Sodium 135 L (136-145) mEq/L Potassium 3.9 (3.5-5.1) mEq/L Chloride 103 (98-107) mEq/L Carbon Dioxide 27 (23-29) mEq/L BUN 33 H (8-23) mg/dL Creatinine 1.58 H (0.60-1.20) mg/dL Glucose 133 H (70-105) mg/dL Calcium 8.3 L (8.6-10.3) mg/dL - VTE Documentation of Mechanical Device: Intermittent pneumatic compression device Consult Discharge Plan - Plan Instructions: Colectomy (DC) Additional Instructions: General Surgical Discharge Instructions 1. No pushing, pulling, or lifting greater than 15 lbs for 5 weeks (depending upon procedure). 2. You may shower beginning today, but no tub baths, soaking, or swimming for 2 weeks. 3. You may resume driving when you are off narcotics and are safe to react in a car. 4. Take ibuprofen every 8 hours for discomfort. If this does not relieve discomfort, you may take the as needed [place]/hydrocodone. Take narcotics as directed. Do not take more narcotics then directed and do not share your narcotics with any other person. Do not drink alcohol while on narcotics. 5. Take stool softeners (Colace) or a water based laxative (Miralax) while taking narcotics. You may hold for loose stools. 6. Report any fevers greater than 100.5F, increase abdominal discomfort, drainage that looks like pus, increased redness or pain at the surgical site, or any vomiting. 7. Report any pain in the calves, shortness of breath, or rapid heartbeat. 8. Follow-up in the office as directed. 9. If you were prescribed antibiotics, do not stop them without talking to your provider. Referrals: Chayo Alvarado MD [Partnered Physician] - 05/10/18 10:40 am Geremias Ryan DO [Primary Care Provider] - Sabina Hester CNP [Advanced Practice Nurse] - 05/28/18 9:00 am Prescriptions: HYDROcodone/Acet 5/325 mg [[place] 5-325 mg] 1 tab PO Q6H PRN 7 Days #28 tab PRN Reason: Moderate Pain Ibuprofen 800 mg PO Q8H PRN #30 tablet PRN Reason: Mild Pain
--- NOTE | 2018-05-15 17:20 | Internal Med Progress Note ---
Hospitalist Progress Note - Encounter Date of Encounter: 05/15/18 Time of Encounter: 17:15 - Subjective Interval History: Patient seen and evaluated at bedside. reports doing well, denies chest pain, or abdominal pain. She also denies seeing blood in her stool or urine. - Exam Vitals: Temp Pulse Resp BP Pulse Ox 99.3 F 65 17 151/59 94 05/15/18 16:32 05/15/18 16:32 05/15/18 16:32 05/15/18 16:32 05/15/18 16:32 Exam: General: Alert and oriented x3. In no acute distress. Cardiovascular: Irregularly irregular, Normal S1 & S2, no rubs, murmurs or gallops. JVD unable to evaluate due to short neck. Lungs: CTA bilaterally, no wheezes or crackles. Abdomen:Obese, Soft, non-tender, no rigidity. Clean drainage on her gown from the surgical incision. NABS in all 4 quadrants. Extremities:1+ edema in the lowee extremities b/l, strength is 5/5 in the lower and upper extremities. Neurological:Normal cognition and motor skills. Rest of the physical exam is non contributory - Assessment and Plan (1) Anemia Current Visit: Yes Status: Chronic Assessment and Plan: Possible secondary to acute blood lost anemia. Patient has received a total of 6 PRBCs in this admission. No active signs of bleeding. Plan: transfuse 1 PRBCs cbc 1 hour post transfusion Patient educated to follow up with GI as outpatient to complete GI bleeding work up. (2) Leukocytosis Current Visit: Yes Status: Acute Assessment and Plan: No signs of active infection. Plan will continue to monitor clinically patient has completed treatment for pneumonia (3) Uncontrolled type 2 diabetes mellitus with insulin therapy Current Visit: Yes Status: Chronic Assessment and Plan: Blood sugar suboptimally controlled. Plan: increase levemir to 35 units BID continue Lispro 5 unit ac and medium dose sliding scale. carb controlled diet (4) Acute kidney injury superimposed on chronic kidney disease Current Visit: Yes Status: Resolved Assessment and Plan: Kidney function back to baseline Plan: Avoid nephrotoxic medications Outpatient f/u with nephrology (5) Atrial fibrillation Current Visit: Yes Status: Chronic Assessment and Plan: Rate controlled Plan: Continue Diltiazem 120mg/PO daily and Carvedilol 25mg PO BID for rate control Will hold anticagulation Discussed with the patient and the daughter who was in the room that Anticoagulation should be resume in the outpatient settings continue aspirin 81mg/PO (6) Diastolic CHF Current Visit: Yes Status: Chronic Assessment and Plan: Plan: Plan: To continue gentle IV diruresis with furosemide 40mg/IV daily strict intake and output water restriction to 1.5 litters a day. daily weight ACEs has been held due to ROBERT Continue low dose beta-amos (7) Colon cancer metastasized to liver Current Visit: Yes Status: Chronic Assessment and Plan: S/P: Procedure:Robotic splenic flexure takedown, transverse colectomy, and lysis of adhesions Small bowel resection Exporter laparotomy Robotic wedge liver resection Plan: Oncology on board; recommend outpatient PET-CT to further evaluate new liver mass. Colonoscopy during this admission revealed new possibly malignant mass on transverse colon, biopsy shows at least high-grade dysplasia, cannot rule out invasive adenocarcinoma; Had transverse colon resection and liver biopasy by Surgery, pending pathology. discussed with the family about the importance of following up with Hem&Onc in the outpatient settings (8) DVT prophylaxis Current Visit: Yes Status: Acute Assessment and Plan: Continue heparin 5000 units subQ BID for DVT prophylaxis as patient high risk for the DVT due to colon malignancy (9) Hypertension Current Visit: No Status: Chronic Assessment and Plan: Well controlled Plan: continue current antihypertensive medications. - Summary of Assessment and Plan Summary of Assessment and Plan: Patient will be discharge home tomorrow if H&H remains stable. Patient refused to go to SNF/ECF and wants to go the her daughter's house. - Time Spent with Patient Total time spent is greater than 50% in coordination of care (as documented) at patient's floor/unit and/or counseling patient: Greater than 35 minutes Plan of Care Discussed with: patient (her daughter and the nurse.) Internal Medicine: Result - Labs CBC & Chem 7: 05/15/18 06:02 05/15/18 06:02 Labs: Short CBC 05/15/18 Range/Units 06:02 WBC 11.9 H (4.3-11.1) K/mcL Hgb 7.5 L (11.5-15.4) g/dL Hct 23.0 L (35.3-44.9) % Plt Count 245 (140-400) K/mcL Neutrophils # 8.9 (1.6-8.9) K/mcL BMP 05/15/18 06:02 Sodium 135 L Potassium 3.9 Chloride 103 Carbon Dioxide 27 BUN 33 H Creatinine 1.58 H Glucose 133 H Calcium 8.3 L - ABG Interpretation ABG results: PT/INR, D-dimer PT 17.6 Seconds (9.4-12.1) H 04/28/18 01:50 - VTE Documentation of Mechanical Device: Intermittent pneumatic compression device Consult Discharge Plan - Plan Instructions: Colectomy (DC) Additional Instructions: General Surgical Discharge Instructions 1. No pushing, pulling, or lifting greater than 15 lbs for 5 weeks (depending upon procedure). 2. You may shower beginning today, but no tub baths, soaking, or swimming for 2 weeks. 3. You may resume driving when you are off narcotics and are safe to react in a car. 4. Take ibuprofen every 8 hours for discomfort. If this does not relieve discomfort, you may take the as needed [place]/hydrocodone. Take narcotics as directed. Do not take more narcotics then directed and do not share your narcotics with any other person. Do not drink alcohol while on narcotics. 5. Take stool softeners (Colace) or a water based laxative (Miralax) while taking narcotics. You may hold for loose stools. 6. Report any fevers greater than 100.5F, increase abdominal discomfort, drainage that looks like pus, increased redness or pain at the surgical site, or any vomiting. 7. Report any pain in the calves, shortness of breath, or rapid heartbeat. 8. Follow-up in the office as directed. 9. If you were prescribed antibiotics, do not stop them without talking to your provider. Referrals: Chayo Alvarado MD [Partnered Physician] - 05/10/18 10:40 am Sabina Hester CNP [Advanced Practice Nurse] - 05/28/18 9:00 am Geremias Ryan DO [Primary Care Provider] - Prescriptions: HYDROcodone/Acet 5/325 mg [[place] 5-325 mg] 1 tab PO Q6H PRN 7 Days #28 tab PRN Reason: Moderate Pain Ibuprofen 800 mg PO Q8H PRN #30 tablet PRN Reason: Mild Pain (1) Anemia Qualifiers: Anemia type: other cause Other causes of anemia: acute posthemorrhagic Qualified Code(s): D62 - Acute posthemorrhagic anemia (2) Leukocytosis Qualifiers: Leukocytosis type: leukemoid reaction Qualified Code(s): D72.823 - Leukemoid reaction (5) Atrial fibrillation Qualifiers: Atrial fibrillation type: paroxysmal Qualified Code(s): I48.0 - Paroxysmal atrial fibrillation (6) Diastolic CHF Qualifiers: Heart failure chronicity: chronic Qualified Code(s): I50.32 - Chronic diastolic (congestive) heart failure (9) Hypertension Qualifiers: Hypertension type: essential hypertension
--- NOTE | 2018-05-15 17:25 | Oncology Inp Progress Note ---
<Chayo Alvarado - Last Filed: 05/17/18 08:59> Date of Encounter: 05/15/18 (1) Acute blood loss anemia Status: Acute (2) Colonic mass Status: Acute Oncology: Obj Data - Labs CBC & Chem 7: 05/16/18 07:09 05/16/18 07:09 Labs: Laboratory Results - last 24 hr 05/16/18 07:30 POC Glucose 124 H - ABG Interpretation ABG results: PT/INR, D-dimer PT 17.6 Seconds (9.4-12.1) H 04/28/18 01:50 Consult Discharge Plan - Plan Instructions: Colectomy (DC) Additional Instructions: General Surgical Discharge Instructions 1. No pushing, pulling, or lifting greater than 15 lbs for 5 weeks (depending upon procedure). 2. You may shower beginning today, but no tub baths, soaking, or swimming for 2 weeks. 3. You may resume driving when you are off narcotics and are safe to react in a car. 4. Take ibuprofen every 8 hours for discomfort. If this does not relieve discomfort, you may take the as needed [place]/hydrocodone. Take narcotics as directed. Do not take more narcotics then directed and do not share your narcotics with any other person. Do not drink alcohol while on narcotics. 5. Take stool softeners (Colace) or a water based laxative (Miralax) while taking narcotics. You may hold for loose stools. 6. Report any fevers greater than 100.5F, increase abdominal discomfort, drainage that looks like pus, increased redness or pain at the surgical site, or any vomiting. 7. Report any pain in the calves, shortness of breath, or rapid heartbeat. 8. Follow-up in the office as directed. 9. If you were prescribed antibiotics, do not stop them without talking to your provider. Referrals: Chayo Alvarado MD [Partnered Physician] - 05/10/18 10:40 am Sabina Hester CNP [Advanced Practice Nurse] - 05/28/18 9:00 am Geremias Ryan DO [Primary Care Provider] - Prescriptions: HYDROcodone/Acet 5/325 mg [[place] 5-325 mg] 1 tab PO Q6H PRN 7 Days #28 tab PRN Reason: Moderate Pain Ibuprofen 800 mg PO Q8H PRN #30 tablet PRN Reason: Mild Pain Inpatient Charges Provider: Dr. Merna Alvarado Follow Up: 22038 - Attending Attestation I examined this patient and my medical decision-making was reviewed with the Advanced Practice Nurse. I agree with the documented findings, disposition and treatment plan as described except to the extent set forth below. 1. Metastatic colon cancer. She presented with GI bleed and acute anemia. Colonoscopy showed transverse colon mass. CAT scan showed liver lesions mostly right-sided CEA mildly elevated at 9.5 She underwent transverse colon resection 04/26/2018 Pathology showed 8 cm tumor grade 2 margins proximal and distal negative but positive circumferential margin. No perineural invasion. Indeterminate for lymphovascular invasion. 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 Likely oxaliplatin or irinotecan with Xeloda and Avastin She will be going to a rehabilitation facility <Sindhu Mena - Last Filed: 05/18/18 09:15> Date of Encounter: 05/15/18 Time of Encounter: 17:25 (1) Colon cancer metastasized to liver Status: Chronic Assessment and plan: Colonoscopy 05/04/2018 which revealed an ulcerating non-obstructing large oval shaped mass in the transverse colon about 7 cm distal to previous ileocolonic anastomosis. POD #6 of Robotic splenic flexure takedown, transverse colectomy, and lysis of adhesions, Small bowel resection, Exploratory laparotomy, Robotic wedge liver resection. Recovering well from surgical standpoint, she has had return of bowel function. Pathology: Colon tumor bx colonscopy: At least high grade dysplasia-cannot rule out invasive adenocarcinoma Surgical Pathology:8 cm tumor grade 2 margins proximal and distal negative but positive circumferential margin. No perineural invasion. Indeterminate for lymphovascular invasion. Liver wedge biopsy positive for metastatic adenocarcinoma PT IVb, PN 0, pM1 stage IV Pathology report discussed today with patient at bedside. She has a history of synchronous colon cancers, Stage I, s/p resection Plan to proceed with genetic testing including MSI testing, AZAM panel and HER-2 testing Chemotherapy to be initiated as an outpatient. Likely oxaliplatin or irinotecan with Xeloda and Avastin. Encouraged continued participation with therapy and recovery from her hospitalization. Oncology: Subj Interval history: Ms. Hitchcock is resting in her chair, reports feeling well with no physical complaint at this time. Denies chest pain, abdominal pain, SOB, fever/chills. Passing gas, having BM, tolerating regular diet. - Constitutional Vitals: Vital Signs Temp Pulse Resp BP Pulse Ox 05/15/18 16:32 99.3 F 65 17 151/59 94 05/15/18 12:15 147/57 05/15/18 12:12 98.6 F 68 17 94 05/15/18 07:43 98.3 F 56 17 144/68 05/14/18 21:04 97 05/14/18 20:00 97.5 F L 68 28 157/66 90 Intake and Output 05/15/18 05/15/18 05/15/18 07:59 15:59 23:59 Intake Total 420 / 420 Balance 420 / 420 Intake: Oral 420 / 420 Other: Meal Lunch Percent of Meal Consumed 50% Stool Size Copious Stool Consistency liquid Stool Color Brown Black # Urine Diapers 1 1 # Bowel Movement Diapers 2 Weight 97.5 kg Blood Glucose* 145 239 286 Patient Weight 05/15/18 23:59 Weight 97.5 kg General appearance: cooperative, no acute distress, no febrile - Head Head exam: Present: atraumatic - ENT ENT exam: Present: mucous membranes moist - Respiratory Respiratory exam: Present: CTAB. Absent: respiratory distress - Cardiovascular Cardiovascular exam: Present: RRR - GI/Abdominal GI/Abdominal exam: Present: normal bowel sounds, soft Additional comments: post operative tenderness, midline incision clean and intact - Extremities Exam Extremities exam: Absent: calf tenderness - Neurological Exam Neurological exam: Present: alert, oriented X3, no focal deficits, strengths equal and symetr throughout - Psychiatric Psychiatric exam: Present: normal affect, normal mood - Skin Skin exam: Present: dry, intact, normal color, warm Oncology: Obj Data - Labs CBC & Chem 7: 05/16/18 07:09 05/16/18 07:09 - ABG Interpretation ABG results: PT/INR, D-dimer PT 17.6 Seconds (9.4-12.1) H 04/28/18 01:50 Inpatient Charges Provider: Dr. Merna Alvarado Follow Up: [id number]
[2018-05-15] MEDS ORDERED: 0.9 % Sodium Chloride 250 ML ONE (20:03)
[2018-05-16] MEDS: *HR* Heparin 5,000 UNIT/ML VIAL SQ SCH (06:16)
[2018-05-16 07:28] LABS: Basophils % 0.3 %; Eosinophils # 0.4 K/mcL (0.0-0.6); Eosinophils % 3.7 %; Hematocrit 25.2 % (35.3-44.9); Hemoglobin 8.2 g/dL (11.5-15.4); Immature Granulocytes % 0.4 % (0-4); Lymphocytes # 0.6 K/mcL (0.6-4.6); Lymphocytes % 5.3 %; Mean Corpuscular HGB Conc 32.5 g/dL (31.6-35.5); Mean Corpuscular Hemoglobin 27.5 pg (28.0-33.3); Mean Corpuscular Volume 84.6 fL (83.0-100.0); Mean Platelet Volume 10.9 fL (9.4-12.4); Monocytes # 1.6 K/mcL (0.0-1.3); Neutrophils # 8.7 K/mcL (1.6-8.9); Platelet Count 253 K/mcL (140-400); Red Blood Count 2.98 M/mcL (3.82-4.97); Red Cell Distribution Width 15.1 % (11.5-14.5); Segmented Neutrophils % 76.3 %
[2018-05-16 07:31] VITALS: BP 138/55
[2018-05-16 07:46] LABS: Calcium 8.3 mg/dL (8.6-10.3); Magnesium 1.6 mg/dL (1.6-2.6); Potassium 3.8 mEq/L (3.5-5.1)
[2018-05-16] MEDS ORDERED: Insulin LISPRO 300 UNITS/3 ML VIAL SQ SCH (08:00)
--- NOTE | 2018-05-16 08:07 | Discharge Summary ---
- NOTES TO OUTPATIENT PROVIDER Notes to Outpatient Provider: Follow-up with surgery within 1-2 weeks. Follow- up with oncology within 1-2 weeks. CBC within a week. Orders not resulted at time of discharge: Pending orders 05/15/18 15:08 Occult Blood,Stool [BF] Routine Date of Encounter: 05/16/18 Time of Encounter: 08:05 - Discharge Diagnosis (1) Colon cancer metastasized to liver Priority: Primary Status: Chronic (2) Anemia Priority: Secondary Status: Chronic Qualifiers: Anemia type: other cause Other causes of anemia: acute posthemorrhagic Qualified Code(s): D62 - Acute posthemorrhagic anemia (3) Leukocytosis Priority: Secondary Status: Acute Qualifiers: Leukocytosis type: leukemoid reaction Qualified Code(s): D72.823 - Leukemoid reaction (4) Uncontrolled type 2 diabetes mellitus with insulin therapy Priority: Secondary Status: Chronic (5) Acute kidney injury superimposed on chronic kidney disease Priority: Secondary Status: Resolved (6) Atrial fibrillation Priority: Secondary Status: Chronic Qualifiers: Atrial fibrillation type: paroxysmal Qualified Code(s): I48.0 - Paroxysmal atrial fibrillation (7) Diastolic CHF Priority: Secondary Status: Chronic Qualifiers: Heart failure chronicity: chronic Qualified Code(s): I50.32 - Chronic diastolic (congestive) heart failure (8) DVT prophylaxis Priority: Secondary Status: Acute (9) HTN (hypertension) Priority: Secondary Status: Chronic Qualifiers: Hypertension type: essential hypertension Qualified Code(s): I10 - Essential (primary) hypertension Hospital course: Ms. Hitchcock is a 72 year old female pmh of CHF, COPD, diabetes, hypertension, colon and kidney cancer patient presented to the emergency room due to weakness , lethargy and abdominal pain. Admitted to the hospital for sepsis due to pneumonia, for which the patient was treated with antibiotics. ROBERT on CKD. Due to abdominal pain. CT abdomen and pelvis was done which showed Left mid abdominal mass which may be causing partial intussusception. Surgery was consulted and patient underwent: Robotic splenic flexure takedown, transverse colectomy, and lysis of adhesions Small bowel resection Exporter laparotomy Robotic wedge liver resection. Biopsy report of colon tumor, biopsy: At least high-grade dysplasia, cannot rule out invasive adenocarcinoma. Patient to follow-up with Hem&Onc as outpatient for continuity of care. Due to anemia requiring multiple blood transfusions, GI was consulted and patient underwent an EGD: Normal esophagus. Gastritis. Normal examined duodenum. As patient had a colonoscopy in September was unremarkable GI recommended for a push enteroscopy to be done as an outpatient. H&H remained stable following a total of 7 units of PRBCs transfused during this admission. No active sites of bleeding seen. Due to A. fib patient was on Eliquis which has been held. 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 Patient has been tolerating by mouth diet. And has been cleared from the surgical team to be discharged and follow up with them within 2 weeks. H&H has been stable, not active signs of bleeding. Patient is clinically stable to be discharged. Patient and her family located about importance of following up with Hem&Onc, surgery and her PCP for continuity of care as outpatient. - Time Spent with Patient Total time spent providing and/or coordinating discharge services: Greater than 30 minutes - Discharge Medications Prescriptions: HYDROcodone/Acet 5/325 mg [[place] 5-325 mg] 1 tab PO Q6H PRN 7 Days #28 tab PRN Reason: Moderate Pain Ibuprofen 800 mg PO Q8H PRN #30 tablet PRN Reason: Mild Pain Home Medications: Aspirin [Adult Low Dose Aspirin EC] 81 mg PO DAILY 11/15/15 [History] Insulin ASPART [Novolog Flexpen] 15 unit SQ TIDWM MDD + SLIDING SCALE 11/15/15 [ History] Ferrous Sulfate 325 mg PO DAILY 11/29/16 [History] Hydralazine HCl 100 mg PO TID 11/29/16 [History] [place]-3/Dha/Epa/Fish Oil [Fish Oil 1,000 mg Softgel] 1 cap PO DAILY 11/29/16 [ History] cloNIDine HCl [Clonidine HCl] 0.3 mg PO TID #90 tab 03/05/17 [Rx] Albuterol Sulfate [Proair Hfa] 1 puff IH Q4H PRN #1 inh 05/11/17 [Rx] ALPRAZolam [Xanax 0.5 MG Tablet] 0.5 mg PO BID PRN 08/08/17 [History] Pravastatin Sodium [Pravachol] 80 mg PO QPM 08/08/17 [History] Carvedilol [Coreg] 25 mg PO BIDWM #60 tablet 08/18/17 [Rx] Oxygen 2 l NS AD 09/22/17 [History] Furosemide [Lasix] 40 mg PO DAILY PRN 10/19/17 [History] Dulaglutide [Trulicity] 0.75 mg SQ TH 04/13/18 [History] Gabapentin [Neurontin] 100 mg PO BID 04/13/18 [History] Insulin Degludec [Tresiba Flextouch U-200] 62 unit SQ HS 04/13/18 [History] dilTIAZem HCl [Diltiazem 24Hr ER] 120 mg PO DAILY 04/13/18 [History] Mupirocin Calcium [Bactroban Nasal] 1 gm NS BID 5 Days #1 oint...g. 04/16/18 [Rx ] HYDROcodone/Acet 5/325 mg [[place] 5-325 mg] 1 tab PO Q6H PRN 7 Days #28 tab 05/15 [Rx] Ibuprofen 800 mg PO Q8H PRN #30 tablet 05/15/18 [Rx] Allergies/Adverse Reactions: 3 Allergy/AdvReac Type Severity Reaction Status Date / Time Sulfa (Sulfonamide Allergy Severe Swelling Verified 04/10/18 15:11 Antibiotics) of Lip/Tongue/Throat Date of admission: 04/26/18 18:06 Primary care physician: Geremias Ryan DO Consults: 04/28/18 12:02 Consult to Oncology [CONS] Routine Consulting Provider: [facility] Reason for Consult: anemia, worsening liver metastases Call Completed: No 05/02/18 11:54 Consult to Physical Therapy [CONS] Routine Comment: Evaluate, develop and implement POC Reason for Consult: Generalized weakness, sepsis, anemia Does patient have active BEDREST order?: No Is patient medically & hemodynamically stable?: Yes Patient assessed for mobility or mobilized this visit?: No 05/02/18 12:20 Consult to Occupational Therapy [CONS] Routine Comment: Evaluate, develop and implement POC Reason for Consult: generalized weakness, pneumonia, sepsis Does patient have active BEDREST order?: No Is patient medically & hemodynamically stable?: No 05/04/18 12:05 Consult to Surgery [CONS] Routine Consulting Provider: Sammy Hester Reason for Consult: Transverse colon mass with h/o- right hemicolectomy Call Completed: Yes - Constitutional Vitals: Temp Pulse Resp BP Pulse Ox 98.5 F 60 19 138/55 98 05/16/18 07:19 05/16/18 07:19 05/16/18 07:19 05/16/18 07:19 05/16/18 07:19 General appearance: Present: morbidly obese, obese Exam: General: Alert and oriented x3. In no acute distress. Cardiovascular: Irregularly irregular, Normal S1 & S2, no rubs, murmurs or gallops. JVD unable to evaluate due to short neck. Lungs: CTA bilaterally, no wheezes or crackles. Abdomen:Obese, Soft, non-tender, no rigidity. Clean drainage on her gown from the surgical incision. NABS in all 4 quadrants. Extremities:1+ edema in the lowee extremities b/l, strength is 5/5 in the lower and upper extremities. Neurological:Normal cognition and motor skills. Rest of the physical exam is non contributory - Patient Status Disposition: Home Health Service Condition: Good Functional capacity at discharge: independent ambulation Overall status at discharge: patient is progressing back to baseline - Discharge Instructions Instructions: Colectomy (DC) Follow Up With: Chayo Alvarado MD [Partnered Physician] - 05/10/18 10:40 am Sabina Hester CNP [Advanced Practice Nurse] - 05/28/18 9:00 am Geremias Ryan DO [Primary Care Provider] - Additional Instructions: General Surgical Discharge Instructions 1. No pushing, pulling, or lifting greater than 15 lbs for 5 weeks (depending upon procedure). 2. You may shower beginning today, but no tub baths, soaking, or swimming for 2 weeks. 3. You may resume driving when you are off narcotics and are safe to react in a car. 4. Take ibuprofen every 8 hours for discomfort. If this does not relieve discomfort, you may take the as needed [place]/hydrocodone. Take narcotics as directed. Do not take more narcotics then directed and do not share your narcotics with any other person. Do not drink alcohol while on narcotics. 5. Take stool softeners (Colace) or a water based laxative (Miralax) while taking narcotics. You may hold for loose stools. 6. Report any fevers greater than 100.5F, increase abdominal discomfort, drainage that looks like pus, increased redness or pain at the surgical site, or any vomiting. 7. Report any pain in the calves, shortness of breath, or rapid heartbeat. 8. Follow-up in the office as directed. 9. If you were prescribed antibiotics, do not stop them without talking to your provider. - Diet and Activity Activity: as per physical therapy Diet: diabetic diet - VTE Documentation of Mechanical Device: Intermittent pneumatic compression device
--- NOTE | 2018-05-16 08:29 | Physician Discharge Referral ---
Home Health/Hosp Referral Info Transfer to: Home Health - Diagnosis (1) Colon cancer metastasized to liver Priority: Primary Status: Chronic (2) Anemia Priority: Secondary Status: Chronic (3) Leukocytosis Priority: Secondary Status: Acute (4) Uncontrolled type 2 diabetes mellitus with insulin therapy Priority: Secondary Status: Chronic (5) Acute kidney injury superimposed on chronic kidney disease Priority: Secondary Status: Resolved (6) Atrial fibrillation Priority: Secondary Status: Chronic (7) Diastolic CHF Priority: Secondary Status: Chronic (8) DVT prophylaxis Priority: Secondary Status: Acute (9) Hypertension Priority: Secondary Status: Chronic - Respiratory Orders Oxygen / L per min (2 litters at night.) Smoking Cessation: Smoking cessation has been advised. For more information, call the [place] Tobacco Quit Line at 7-745-HNDP-NOW. - Diet/Nutrition Diet/Nutrition Orders: Regular - Services Needed Following services are medically necessary services: Home Health Aide, Physical Therapy, Occupational Therapy - Transfer Medications Prescriptions: HYDROcodone/Acet 5/325 mg [[place] 5-325 mg] 1 tab PO Q6H PRN 7 Days #28 tab PRN Reason: Moderate Pain Ibuprofen 800 mg PO Q8H PRN #30 tablet PRN Reason: Mild Pain Home Medications: Aspirin [Adult Low Dose Aspirin EC] 81 mg PO DAILY 11/15/15 [History] Insulin ASPART [Novolog Flexpen] 15 unit SQ TIDWM MDD + SLIDING SCALE 11/15/15 [ History] Ferrous Sulfate 325 mg PO DAILY 11/29/16 [History] Hydralazine HCl 100 mg PO TID 11/29/16 [History] [place]-3/Dha/Epa/Fish Oil [Fish Oil 1,000 mg Softgel] 1 cap PO DAILY 11/29/16 [ History] cloNIDine HCl [Clonidine HCl] 0.3 mg PO TID #90 tab 03/05/17 [Rx] Albuterol Sulfate [Proair Hfa] 1 puff IH Q4H PRN #1 inh 05/11/17 [Rx] ALPRAZolam [Xanax 0.5 MG Tablet] 0.5 mg PO BID PRN 08/08/17 [History] Pravastatin Sodium [Pravachol] 80 mg PO QPM 08/08/17 [History] Carvedilol [Coreg] 25 mg PO BIDWM #60 tablet 08/18/17 [Rx] Oxygen 2 l NS AD 09/22/17 [History] Furosemide [Lasix] 40 mg PO DAILY PRN 10/19/17 [History] Dulaglutide [Trulicity] 0.75 mg SQ TH 04/13/18 [History] Gabapentin [Neurontin] 100 mg PO BID 04/13/18 [History] Insulin Degludec [Tresiba Flextouch U-200] 62 unit SQ HS 04/13/18 [History] dilTIAZem HCl [Diltiazem 24Hr ER] 120 mg PO DAILY 04/13/18 [History] Mupirocin Calcium [Bactroban Nasal] 1 gm NS BID 5 Days #1 oint...g. 04/16/18 [Rx ] HYDROcodone/Acet 5/325 mg [[place] 5-325 mg] 1 tab PO Q6H PRN 7 Days #28 tab 05/15 [Rx] Ibuprofen 800 mg PO Q8H PRN #30 tablet 05/15/18 [Rx] Allergies/Adverse Reactions: 3 Allergy/AdvReac Type Severity Reaction Status Date / Time Sulfa (Sulfonamide Allergy Severe Swelling Verified 04/10/18 15:11 Antibiotics) of Lip/Tongue/Throat Certification: Further, I certify that my clinical findings support that this patient is homebound (i.e. absences from home require considerable and taxing effort and are for medical reasons or restorationist services or infrequently or short duration when for other reasons) because: Homebound Reason: Patient requires assistance of a person or device to safely leave home Attestation: My signature below is to certify that this patient is under my care and that I, or nurse practitioner, or a physician's foundation assistant working with me, has a face-to -face encounter with this patient.
[2018-05-16] MEDS: Insulin LISPRO 300 UNITS/3 ML VIAL SQ SCH (08:47)
[2018-05-16] MEDS: hydrALAZINE 25 MG TABLET PO SCH (08:53)
[2018-05-16] MEDS: Gabapentin 100 MG CAPSULE PO SCH (08:53)
[2018-05-16] MEDS: Diltiazem CD (24hr) 120 MG CAPSULE PO SCH (08:53)
[2018-05-16] MEDS: Aspirin Enteric Coated 81 MG Tablet PO SCH (08:53)
[2018-05-16] MEDS: Furosemide 40 MG TABLET PO SCH (08:54)
[2018-05-16] MEDS: cloNIDine HCl 0.1 MG TABLET PO SCH (08:54)
[2018-05-16] MEDS: Insulin DETEMIR 100 UNIT/ML X5UNITS SQ SCH (08:55)
== END 2018-05-16 13:15 | disposition home health service (06) | DRG 853 ==
LOC: EMEROOARM 15:47 → SUATTDRO 18:06 → 2NENU 18:06
PROVIDERS: ADMIT Student in an Organized Health Care Education/Training Program; ATTEND Internal Medicine
PROC: ENDOCBX (~2018-04-26)

== ENCOUNTER 2018-05-24 18:03 | Inpatient (IN) ==
--- NOTE | 2018-05-24 18:16 | Emergency Department Note ---
Disposition Clinical Impression: Sepsis Disposition: Still a Patient Referrals: Geremias Ryan DO [Primary Care Provider] - Forms: ED Satisfaction Letter General Adult HPI - General Stated complaint: Possible sepsis,CA Pt Time Seen by Provider: 05/24/18 18:12 Source: patient, family Mode of arrival: wheelchair Limitations: no limitations Nursing Notes Reviewed: Yes Vital Signs Reviewed: Yes - History of Present Illness HPI Narrative: Patient presents to the ED with cough, congestion and chills. Patient was just at the outpatient surgical center today for a port placement. Patient has metastatic cancer. She had a partial colectomy on May 08 and was discharged on the . Since getting home. She has had progressively increasing shortness of breath. She has had a productive cough. No fevers, but has had chills and rigors. States today she was okay when they went home, but she got home and was shaking. Despite having multiple blankets on her. She is starting chemotherapy soon for liver cancer. She is followed by Dr. Travis with oncology. She is also received radiation therapy. Patient is complaining of some chest tightness and shortness of breath. Patient also having bilateral lower extremity edema and does have a history of CHF and is on Lasix. Has been on spironolactone previously, but is no longer on that. family states patient had pneumonia in the past and states this is similar. - Related Data Home Medications Medication Instructions Recorded Confirmed Aspirin [Adult Low Dose Aspirin EC] 81 mg PO DAILY 11/15/15 05/21/18 Insulin ASPART [Novolog Flexpen] 15 unit SQ TIDWM MDD + SLIDING 11/15/15 SCALE Ferrous Sulfate 325 mg PO DAILY 11/29/16 05/21/18 Hydralazine HCl 100 mg PO TID 11/29/16 05/21/18 [place]-3/Dha/Epa/Fish Oil [Fish Oil 1 cap PO DAILY 11/29/16 05/21/18 1,000 mg Softgel] ALPRAZolam [Xanax 0.5 MG Tablet] 0.5 mg PO BID PRN 08/08/17 05/21/18 Pravastatin Sodium [Pravachol] 80 mg PO QPM 08/08/17 05/21/18 Oxygen 2 l NS AD 09/22/17 05/21/18 Furosemide [Lasix] 40 mg PO DAILY PRN 10/19/17 05/21/18 Dulaglutide [Trulicity] 0.75 mg SQ TH 04/13/18 05/21/18 Gabapentin [Neurontin] 100 mg PO BID 04/13/18 05/21/18 Insulin Degludec [Tresiba 62 unit SQ HS 04/13/18 05/21/18 Flextouch U-200] dilTIAZem HCl [Diltiazem 24Hr ER] 120 mg PO DAILY 04/13/18 05/21/18 Previous Rx's Medication Instructions Recorded cloNIDine HCl [Clonidine HCl] 0.3 mg PO TID #90 tab 03/05/17 Albuterol Sulfate [Proair Hfa] 1 puff IH Q4H PRN #1 inh 05/11/17 Carvedilol [Coreg] 25 mg PO BIDWM #60 tablet 08/18/17 Mupirocin Calcium [Bactroban Nasal] 1 gm NS BID 5 Days #1 oint...g. 04/16/18 HYDROcodone/Acet 5/325 mg [[place] 1 tab PO Q6H PRN 7 Days #28 tab 05/15/18 5-325 mg] Ibuprofen 800 mg PO Q8H PRN #30 tablet 05/15/18 Allergies Allergy/AdvReac Type Severity Reaction Status Date / Time Sulfa (Sulfonamide Allergy Severe Swelling Verified 04/10/18 15:11 Antibiotics) of Lip/Tongue/Throat Review of Systems: As reviewed in the HPI. All other systems reviewed are negative or normal. Past Medical History - Past Medical History Attestation: Yes The following information was validated with the patient. Source: patient Medical history: Reports: arthritis, asthma, atrial fibrillation, cancer, CHF, COPD, coronary artery disease, diabetes, hyperlipidemia, hypertension, myocardial infarction, venous stasis Surgical history: Reports: angioplasty/stent, cholecystectomy, colectomy, coronary bypass (CABG), other Psychiatric history: Reports: anxiety, depression GENERAL PASSENGER AGENT history: Reports: no GENERAL PASSENGER AGENT history - Social History Smoking Status: Never smoker Smokeless Tobacco Status: No Alcohol use: Reports: none Drug use: Reports: none Physical Exam - General Limitations: no limitations General appearance: alert, other (Appears ill) - Head Head exam: atraumatic, normocephalic, normal inspection - Eye Eye exam: Present: normal appearance, PERRL, EOMI - ENT ENT exam: normal exam, normal oropharynx, mucous membranes moist - Neck Neck exam: Present: normal inspection, full ROM, trachea midline - Chest Chest inspection: Present: normal inspection, symmetric chest wall rise - Respiratory Respiratory exam: Present: other (Rales bilateral bases, rhonchi and upper lung cast, worse on the left) - Cardiovascular Cardiovascular exam: Present: tachycardia, normal heart sounds - Abdominal Exam Abdominal exam: Present: soft, other (Lower midline abdominal incision is intact with arnold with surrounding erythema versus granulation tissue, expected postop tenderness, no visible or expressible drainage. Patient reports is improving) - Extremities Exam Extremities exam: Present: normal capillary refill, pedal edema (4+ pitting edema bilaterally) - Expanded Lower Extremity Exam Hip/Pelvis exam: Present: pelvis stable - Neurological Exam Neurological exam: Present: alert, oriented X3 - Psychiatric Psychiatric exam: Present: normal affect, normal mood - Skin Skin exam: Present: warm, dry, intact, normal color Course Course Narrative: Patient presenting with suspected pneumonia. Having shortness of breath, tachycardia, hypoxia, productive cough. Has recently been in the hospital, so we will treat presumptively for HCAP. - Reevaluation(s) Reevaluation #1: patient will be signed out to nighttime team. Vital Signs Temperature 100.1 F H 05/24/18 18:17 Pulse Rate 108 05/24/18 18:17 Respiratory Rate 24 05/24/18 18:17 Blood Pressure 168/61 05/24/18 18:17 O2 Sat by Pulse Oximetry 80 05/24/18 18:17 Temperature 100.1 F H 05/24/18 18:30 Pulse Rate 92 05/24/18 18:30 Respiratory Rate 26 05/24/18 18:30 Blood Pressure 173/100 05/24/18 18:30 O2 Sat by Pulse Oximetry 99 05/24/18 18:37 Oxygen Delivery Oxygen Delivery Nasal Cannula Medical Decision Making - Lab Data Result diagrams: 05/24/18 18:40 Lab Results 05/24/18 Range/Units 18:40 WBC 13.8 H (4.3-11.1) K/mcL RBC 3.71 L (3.82-4.97) M/mcL Hgb 10.1 L (11.5-15.4) g/dL Hct 32.1 L (35.3-44.9) % MCV 86.5 (83.0-100.0) fL MCH 27.2 L (28.0-33.3) pg MCHC 31.5 L (31.6-35.5) g/dL RDW 15.4 H (11.5-14.5) % Plt Count 295 (140-400) K/mcL MPV 11.2 (9.4-12.4) fL Immature Gran % 0.5 (0-4) % Seg Neutrophils % 82.4 % Lymphocytes % 4.6 % Monocytes % 10.6 % Eosinophils % 1.5 % Basophils % 0.4 % Neutrophils # 11.4 H (1.6-8.9) K/mcL Lymphocytes # 0.6 (0.6-4.6) K/mcL Monocytes # 1.5 H (0.0-1.3) K/mcL Eosinophils # 0.2 (0.0-0.6) K/mcL Basophils # 0.1 (0.0-0.2) K/mcL
[2018-05-24] MEDS ORDERED: Piperacillin/Tazobactam 3.375 GM in Water for inj. (sterile) 20 ML 20 ML IVP ONE (18:25)
[2018-05-24] MEDS ORDERED: Levofloxacin 750 MG/150 ML 750 MG/150 ML BAG IVPB ONE (18:25)
--- NOTE | 2018-05-24 18:48 | Emergency Department Note ---
Disposition Clinical Impression: Hypoxia Sepsis Qualifiers: Sepsis type: sepsis due to unspecified organism Qualified Code(s): A41.9 - Sepsis, unspecified organism Disposition: Admitted As Inpatient Condition: Fair General Adult HPI - General Chief complaint: ED Shortness of Breath/Dyspnea Stated complaint: Possible sepsis,CA Pt Time Seen by Provider: 05/24/18 18:12 Source: patient, family Mode of arrival: wheelchair Limitations: no limitations - History of Present Illness Pain Scale: 0 - Related Data Home Medications Medication Instructions Recorded Confirmed Aspirin [Adult Low Dose Aspirin EC] 81 mg PO DAILY 11/15/15 05/24/18 Insulin ASPART [Novolog Flexpen] 15 unit SQ TIDWM MDD + SLIDING 11/15/15 SCALE Ferrous Sulfate 325 mg PO DAILY 11/29/16 05/24/18 Hydralazine HCl 100 mg PO TID 11/29/16 05/25/18 [place]-3/Dha/Epa/Fish Oil [Fish Oil 1 cap PO DAILY 11/29/16 05/24/18 1,000 mg Softgel] ALPRAZolam [Xanax 0.5 MG Tablet] 0.5 mg PO BID PRN 08/08/17 05/25/18 Pravastatin Sodium [Pravachol] 80 mg PO QPM 08/08/17 05/25/18 Oxygen 2 l NS AD 09/22/17 05/24/18 Furosemide [Lasix] 40 mg PO DAILY PRN 10/19/17 05/25/18 Dulaglutide [Trulicity] 0.75 mg SQ TH 04/13/18 05/25/18 Gabapentin [Neurontin] 100 mg PO BID 04/13/18 05/25/18 Insulin Degludec [Tresiba 62 unit SQ HS 04/13/18 05/25/18 Flextouch U-200] dilTIAZem HCl [Diltiazem 24Hr ER] 120 mg PO DAILY 04/13/18 05/24/18 Apixaban [Eliquis] 2.5 mg PO BID 05/25/18 05/25/18 Previous Rx's Medication Instructions Recorded cloNIDine HCl [Clonidine HCl] 0.3 mg PO TID #90 tab 03/05/17 Albuterol Sulfate [Proair Hfa] 1 puff IH Q4H PRN #1 inh 05/11/17 Carvedilol [Coreg] 25 mg PO BIDWM #60 tablet 08/18/17 Mupirocin Calcium [Bactroban Nasal] 1 gm NS BID 5 Days #1 oint...g. 04/16/18 HYDROcodone/Acet 5/325 mg [[place] 1 tab PO Q6H PRN 7 Days #28 tab 05/15/18 5-325 mg] Ibuprofen 800 mg PO Q8H PRN #30 tablet 05/15/18 Allergies Allergy/AdvReac Type Severity Reaction Status Date / Time Sulfa (Sulfonamide Allergy Severe Swelling Verified 04/10/18 15:11 Antibiotics) of Lip/Tongue/Throat Past Medical History - Past Medical History Medical history: Reports: arthritis, asthma, atrial fibrillation, cancer, CHF, COPD, coronary artery disease, diabetes, hyperlipidemia, hypertension, myocardial infarction, venous stasis Surgical history: Reports: angioplasty/stent, cholecystectomy, colectomy, coronary bypass (CABG), other Psychiatric history: Reports: anxiety, depression 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 - Social History Smoking Status: Never smoker Smokeless Tobacco Status: No Alcohol use: Reports: none Drug use: Reports: none Physical Exam - General Limitations: no limitations General appearance: alert, other (Appears ill) Course Vital Signs Temperature 100.1 F H 05/24/18 18:17 Pulse Rate 108 05/24/18 18:17 Respiratory Rate 24 05/24/18 18:17 Blood Pressure 168/61 05/24/18 18:17 O2 Sat by Pulse Oximetry 80 05/24/18 18:17 Temperature 98.8 F 05/26/18 11:48 Pulse Rate 90 05/26/18 11:48 Respiratory Rate 18 05/26/18 11:48 Blood Pressure 187/96 05/26/18 11:48 O2 Sat by Pulse Oximetry 90 05/26/18 11:48 Oxygen Delivery Oxygen Delivery Nasal Cannula Medical Decision Making - Lab Data Result diagrams: 05/26/18 04:51 05/26/18 04:51 Lab Results 05/24/18 05/24/18 05/24/18 Range/Units 18:40 18:40 18:40 WBC 13.8 H (4.3-11.1) K/mcL RBC 3.71 L (3.82-4.97) M/mcL Hgb 10.1 L (11.5-15.4) g/dL Hct 32.1 L (35.3-44.9) % MCV 86.5 (83.0-100.0) fL MCH 27.2 L (28.0-33.3) pg MCHC 31.5 L (31.6-35.5) g/dL RDW 15.4 H (11.5-14.5) % Plt Count 295 (140-400) K/mcL MPV 11.2 (9.4-12.4) fL Immature Gran % 0.5 (0-4) % Seg Neutrophils % 82.4 % Lymphocytes % 4.6 % Monocytes % 10.6 % Eosinophils % 1.5 % Basophils % 0.4 % Neutrophils # 11.4 H (1.6-8.9) K/mcL Lymphocytes # 0.6 (0.6-4.6) K/mcL Monocytes # 1.5 H (0.0-1.3) K/mcL Eosinophils # 0.2 (0.0-0.6) K/mcL Basophils # 0.1 (0.0-0.2) K/mcL Sodium 132 L (136-145) mEq/L Potassium 3.7 (3.5-5.1) mEq/L Chloride 96 L (98-107) mEq/L Carbon Dioxide 27 (23-29) mEq/L BUN 28 H (8-23) mg/dL Creatinine 1.60 H (0.60-1.20) mg/dL Est GFR ( Amer) 38 L (> 60) Est GFR (Non-Af Amer) 32 L (> 60) BUN/Creatinine Ratio 18 (6-26) Glucose 240 H (70-105) mg/dL Calculated Osmolality 287 (280-300) Lactic Acid 0.9 (0.5-2.2) mmol/L Calcium 8.7 (8.6-10.3) mg/dL Phosphorus 3.7 (2.7-4.5) mg/dL Magnesium 1.7 (1.6-2.6) mg/dL Troponin I 0.05 H* (< 0.04) ng/mL B-Natriuretic Peptide (Less than 100) pg/mL Urine Color (Yellow) Urine Clarity (Clear) Urine pH (5.0-8.0) pH Units Ur Specific [place] (1.010-1.025) Urine Protein (Neg-Trace) mg/dL Urine Glucose (UA) (Normal) mg/dL Urine Ketones (Negative) mg/dL Urine Blood (Negative) Urine Nitrite (Negative) Urine Bilirubin (Negative) Urine Urobilinogen (Normal) mg/dL Ur Leukocyte Esterase (Negative) Urine Microscopic RBC (0-3) per hpf Urine Microscopic WBC (0-3) per hpf Ur Squamous Epith Cells (None-Few) per lpf Urine Bacteria (None-Few) per hpf Hyaline Casts (None-Few) per lpf Ur Culture Indicated? (NO) 05/24/18 05/24/18 Range/Units 18:40 19:21 WBC (4.3-11.1) K/mcL RBC (3.82-4.97) M/mcL Hgb (11.5-15.4) g/dL Hct (35.3-44.9) % MCV (83.0-100.0) fL MCH (28.0-33.3) pg MCHC (31.6-35.5) g/dL RDW (11.5-14.5) % Plt Count (140-400) K/mcL MPV (9.4-12.4) fL Immature Gran % (0-4) % Seg Neutrophils % % Lymphocytes % % Monocytes % % Eosinophils % % Basophils % % Neutrophils # (1.6-8.9) K/mcL Lymphocytes # (0.6-4.6) K/mcL Monocytes # (0.0-1.3) K/mcL Eosinophils # (0.0-0.6) K/mcL Basophils # (0.0-0.2) K/mcL Sodium (136-145) mEq/L Potassium (3.5-5.1) mEq/L Chloride (98-107) mEq/L Carbon Dioxide (23-29) mEq/L BUN (8-23) mg/dL Creatinine (0.60-1.20) mg/dL Est GFR ( Amer) (> 60) Est GFR (Non-Af Amer) (> 60) BUN/Creatinine Ratio (6-26) Glucose (70-105) mg/dL Calculated Osmolality (280-300) Lactic Acid (0.5-2.2) mmol/L Calcium (8.6-10.3) mg/dL Phosphorus (2.7-4.5) mg/dL Magnesium (1.6-2.6) mg/dL Troponin I (< 0.04) ng/mL B-Natriuretic Peptide 755 H (Less than 100) pg/mL Urine Color Yellow (Yellow) Urine Clarity Cloudy A (Clear) Urine pH 5.5 (5.0-8.0) pH Units Ur Specific [place] 1.030 H (1.010-1.025) Urine Protein 100 H (Neg-Trace) mg/dL Urine Glucose (UA) Normal (Normal) mg/dL Urine Ketones Negative (Negative) mg/dL Urine Blood Negative (Negative) Urine Nitrite Negative (Negative) Urine Bilirubin Negative (Negative) Urine Urobilinogen Normal (Normal) mg/dL Ur Leukocyte Esterase Moderate H (Negative) Urine Microscopic RBC 0-3 (0-3) per hpf Urine Microscopic WBC 50-100 H (0-3) per hpf Ur Squamous Epith Cells Many H (None-Few) per lpf Urine Bacteria None Seen (None-Few) per hpf Hyaline Casts None Seen (None-Few) per lpf Ur Culture Indicated? NO. A (NO) Attestation Statement - Attestation Attestation: I examined this patient and my medical decision-making was reviewed with the Resident Physician. I agree with the documented findings, disposition and treatment plan as described except to the extent set forth below. Patient has productive cough, fever, tachycardia, hypoxia, tachypnea and borderline temperature elevation. My suspicion is for pneumonia, given the classic medical presentation. Pulmonary embolism is a consideration obviously, given her cancer and recent surgery, by clinical grounds this is fairly classic pneumonia. Awaiting chest x-ray results, if not convincing for pneumonia will likely proceed to CT scan. If she has a consolidation consistent with pneumonia , we will continue treatment for pneumonia with sepsis.
[2018-05-24 18:52] LABS: Basophils # 0.1 K/mcL (0.0-0.2); Basophils % 0.4 %; Eosinophils # 0.2 K/mcL (0.0-0.6); Eosinophils % 1.5 %; Hematocrit 32.1 % (35.3-44.9); Hemoglobin 10.1 g/dL (11.5-15.4); Immature Granulocytes % 0.5 % (0-4); Lymphocytes # 0.6 K/mcL (0.6-4.6); Lymphocytes % 4.6 %; Mean Corpuscular HGB Conc 31.5 g/dL (31.6-35.5); Mean Corpuscular Hemoglobin 27.2 pg (28.0-33.3); Mean Corpuscular Volume 86.5 fL (83.0-100.0); Mean Platelet Volume 11.2 fL (9.4-12.4); Monocytes # 1.5 K/mcL (0.0-1.3); Monocytes % 10.6 %; Neutrophils # 11.4 K/mcL (1.6-8.9); Platelet Count 295 K/mcL (140-400); Red Blood Count 3.71 M/mcL (3.82-4.97); Red Cell Distribution Width 15.4 % (11.5-14.5); Segmented Neutrophils % 82.4 %
[2018-05-24 19:13] LABS: Calcium 8.7 mg/dL (8.6-10.3); Magnesium 1.7 mg/dL (1.6-2.6); Phosphorous 3.7 mg/dL (2.7-4.5); Potassium 3.7 mEq/L (3.5-5.1)
--- NOTE | 2018-05-24 19:19 | Emergency Department Note ---
Disposition Clinical Impression: Hypoxia Sepsis Qualifiers: Sepsis type: sepsis due to unspecified organism Qualified Code(s): A41.9 - Sepsis, unspecified organism Disposition: Admitted As Inpatient Condition: Fair Referrals: Geremias Ryan DO [Primary Care Provider] - Forms: ED Satisfaction Letter Time of Disposition: 22:00 General Adult HPI - General Chief complaint: ED Shortness of Breath/Dyspnea Stated complaint: Possible sepsis,CA Pt Time Seen by Provider: 05/24/18 18:12 Source: patient, family (Daughter) Mode of arrival: wheelchair Limitations: no limitations Nursing Notes Reviewed: Yes Vital Signs Reviewed: Yes - History of Present Illness HPI Narrative: Patient was signed out to me by daytime physicians Dr. Eubanks and Dr. Padilla pending images, reevaluation and final disposition. Please see their note for further details. Pain Scale: 0 - Related Data Home Medications Medication Instructions Recorded Confirmed Aspirin [Adult Low Dose Aspirin EC] 81 mg PO DAILY 11/15/15 05/21/18 Insulin ASPART [Novolog Flexpen] 15 unit SQ TIDWM MDD + SLIDING 11/15/15 SCALE Ferrous Sulfate 325 mg PO DAILY 11/29/16 05/21/18 Hydralazine HCl 100 mg PO TID 11/29/16 05/21/18 [place]-3/Dha/Epa/Fish Oil [Fish Oil 1 cap PO DAILY 11/29/16 05/21/18 1,000 mg Softgel] ALPRAZolam [Xanax 0.5 MG Tablet] 0.5 mg PO BID PRN 08/08/17 05/21/18 Pravastatin Sodium [Pravachol] 80 mg PO QPM 08/08/17 05/21/18 Oxygen 2 l NS AD 09/22/17 05/21/18 Furosemide [Lasix] 40 mg PO DAILY PRN 10/19/17 05/21/18 Dulaglutide [Trulicity] 0.75 mg SQ TH 04/13/18 05/21/18 Gabapentin [Neurontin] 100 mg PO BID 04/13/18 05/21/18 Insulin Degludec [Tresiba 62 unit SQ HS 04/13/18 05/21/18 Flextouch U-200] dilTIAZem HCl [Diltiazem 24Hr ER] 120 mg PO DAILY 04/13/18 05/21/18 Previous Rx's Medication Instructions Recorded cloNIDine HCl [Clonidine HCl] 0.3 mg PO TID #90 tab 03/05/17 Albuterol Sulfate [Proair Hfa] 1 puff IH Q4H PRN #1 inh 05/11/17 Carvedilol [Coreg] 25 mg PO BIDWM #60 tablet 08/18/17 Mupirocin Calcium [Bactroban Nasal] 1 gm NS BID 5 Days #1 oint...g. 04/16/18 HYDROcodone/Acet 5/325 mg [[place] 1 tab PO Q6H PRN 7 Days #28 tab 05/15/18 5-325 mg] Ibuprofen 800 mg PO Q8H PRN #30 tablet 05/15/18 Allergies Allergy/AdvReac Type Severity Reaction Status Date / Time Sulfa (Sulfonamide Allergy Severe Swelling Verified 04/10/18 15:11 Antibiotics) of Lip/Tongue/Throat All systems ED: reviewed and negative except as stated. Past Medical History - Past Medical History Attestation: Yes The following information was validated with the patient. 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 Eubanks and Dr. Padilla pending images, reevaluation and final disposition. Please see their note for further details. Katie is a 72-year-old female with a history of recent diagnosis lung cancer metastasis presenting to the emergency department with cough and congestion. Ongoing for the past few weeks since discharge from prior admission May 16. Patient and daughter report a productive cough with hypoxia 70% at home. She does wear oxygen only as needed and has been requiring in the past several hours after placement of her port today. Her oncologist is Dr. Alvarado. She is denying any other complaints such as chest pain or abdominal pain. Reports normal bowel movement. On examination patient appears ill and in some mild respiratory distress. She has crackles and wheezing bilaterally in her lungs. She is currently on 4 L nasal, cannula oxygen supplementation. She also appears fluid overloaded with pitting edema bilateral lower extremities. Patient was signed out pending imaging with concern for pneumonia. Chest x-ray did not reveal obvious infiltrate. She does have a leukocytosis with a mild elevation of her temperature 100.1 with tachycardia and tachypnea. She meets sepsis criteria and was empirically treated with antibiotics to cover for HCAP. Review for labs show baseline abnormalities including renal insufficiency creatinine 1.6. Her troponin is elevated 0.05 suspecting likely demand ischemia from her infection. Patient had a [place] catheter placed given her history of incontinence in fluid overload state. During placement she had excoriations and some discharge concerning for candidiasis. To better visualize infiltrate CT scan of the chest and abdomen and pelvis performed. Patient will require admission. - Reevaluation(s) Reevaluation #1: Patients had some mild improvement in her work of breathing after DuoNeb treatment. CT scan of her abdomen pelvis and chest did not reveal obvious pulmonary infiltrate. Given her clinical presentation will admit her for her hypoxia increase worker breathing and concern for sepsis. Her urinalysis is not consistent with infection. Patients in agreement with this plan. Time: 22:00 - Consultations Consultation #1: Spoke with on-call hospitalist gloria Vásquez to admit for hypoxia and sepsis. No further orders at this time Time: 23:07 Vital Signs Temperature 100.1 F H 05/24/18 18:17 Pulse Rate 108 05/24/18 18:17 Respiratory Rate 24 05/24/18 18:17 Blood Pressure 168/61 05/24/18 18:17 O2 Sat by Pulse Oximetry 80 05/24/18 18:17 Temperature 100.1 F H 05/24/18 18:30 Pulse Rate 106 05/24/18 19:13 Respiratory Rate 26 05/24/18 19:38 Blood Pressure 136/64 05/24/18 19:13 O2 Sat by Pulse Oximetry 99 05/24/18 19:38 Oxygen Delivery Oxygen Delivery Nasal Cannula Medical Decision Making - MDM Narrative Medical decision making narrative: Patient was discussed with my attending physician who agrees with ED management and final disposition. They independently evaluated the patient. Please refer to their attestation to this encounter for additional information. This note was generated by [employer] voice recognition software and as a result grammatical or spelling errors may occur using this program. - Medical Records Medical records reviewed: Yes I reviewed the patient's medical records. - Lab Data Lab results reviewed: Yes I reviewed the patient's lab results. Result diagrams: 05/24/18 18:40 05/24/18 18:40 Lab Results 05/24/18 05/24/18 05/24/18 Range/Units 18:40 18:40 18:40 WBC 13.8 H (4.3-11.1) K/mcL RBC 3.71 L (3.82-4.97) M/mcL Hgb 10.1 L (11.5-15.4) g/dL Hct 32.1 L (35.3-44.9) % MCV 86.5 (83.0-100.0) fL MCH 27.2 L (28.0-33.3) pg MCHC 31.5 L (31.6-35.5) g/dL RDW 15.4 H (11.5-14.5) % Plt Count 295 (140-400) K/mcL MPV 11.2 (9.4-12.4) fL Immature Gran % 0.5 (0-4) % Seg Neutrophils % 82.4 % Lymphocytes % 4.6 % Monocytes % 10.6 % Eosinophils % 1.5 % Basophils % 0.4 % Neutrophils # 11.4 H (1.6-8.9) K/mcL Lymphocytes # 0.6 (0.6-4.6) K/mcL Monocytes # 1.5 H (0.0-1.3) K/mcL Eosinophils # 0.2 (0.0-0.6) K/mcL Basophils # 0.1 (0.0-0.2) K/mcL Sodium 132 L (136-145) mEq/L Potassium 3.7 (3.5-5.1) mEq/L Chloride 96 L (98-107) mEq/L Carbon Dioxide 27 (23-29) mEq/L BUN 28 H (8-23) mg/dL Creatinine 1.60 H (0.60-1.20) mg/dL Est GFR ( Amer) 38 L (> 60) Est GFR (Non-Af Amer) 32 L (> 60) BUN/Creatinine Ratio 18 (6-26) Glucose 240 H (70-105) mg/dL Calculated Osmolality 287 (280-300) Lactic Acid 0.9 (0.5-2.2) mmol/L Calcium 8.7 (8.6-10.3) mg/dL Phosphorus 3.7 (2.7-4.5) mg/dL Magnesium 1.7 (1.6-2.6) mg/dL Troponin I 0.05 H* (< 0.04) ng/mL B-Natriuretic Peptide (Less than 100) pg/mL Urine Color (Yellow) Urine Clarity (Clear) Urine pH (5.0-8.0) pH Units Ur Specific [place] (1.010-1.025) Urine Protein (Neg-Trace) mg/dL Urine Glucose (UA) (Normal) mg/dL Urine Ketones (Negative) mg/dL Urine Blood (Negative) Urine Nitrite (Negative) Urine Bilirubin (Negative) Urine Urobilinogen (Normal) mg/dL Ur Leukocyte Esterase (Negative) Urine Microscopic RBC (0-3) per hpf Urine Microscopic WBC (0-3) per hpf Ur Squamous Epith Cells (None-Few) per lpf Urine Bacteria (None-Few) per hpf Hyaline Casts (None-Few) per lpf Ur Culture Indicated? (NO) 05/24/18 05/24/18 Range/Units 18:40 19:21 WBC (4.3-11.1) K/mcL RBC (3.82-4.97) M/mcL Hgb (11.5-15.4) g/dL Hct (35.3-44.9) % MCV (83.0-100.0) fL MCH (28.0-33.3) pg MCHC (31.6-35.5) g/dL RDW (11.5-14.5) % Plt Count (140-400) K/mcL MPV (9.4-12.4) fL Immature Gran % (0-4) % Seg Neutrophils % % Lymphocytes % % Monocytes % % Eosinophils % % Basophils % % Neutrophils # (1.6-8.9) K/mcL Lymphocytes # (0.6-4.6) K/mcL Monocytes # (0.0-1.3) K/mcL Eosinophils # (0.0-0.6) K/mcL Basophils # (0.0-0.2) K/mcL Sodium (136-145) mEq/L Potassium (3.5-5.1) mEq/L Chloride (98-107) mEq/L Carbon Dioxide (23-29) mEq/L BUN (8-23) mg/dL Creatinine (0.60-1.20) mg/dL Est GFR ( Amer) (> 60) Est GFR (Non-Af Amer) (> 60) BUN/Creatinine Ratio (6-26) Glucose (70-105) mg/dL Calculated Osmolality (280-300) Lactic Acid (0.5-2.2) mmol/L Calcium (8.6-10.3) mg/dL Phosphorus (2.7-4.5) mg/dL Magnesium (1.6-2.6) mg/dL Troponin I (< 0.04) ng/mL B-Natriuretic Peptide 755 H (Less than 100) pg/mL Urine Color Yellow (Yellow) Urine Clarity Cloudy A (Clear) Urine pH 5.5 (5.0-8.0) pH Units Ur Specific [place] 1.030 H (1.010-1.025) Urine Protein 100 H (Neg-Trace) mg/dL Urine Glucose (UA) Normal (Normal) mg/dL Urine Ketones Negative (Negative) mg/dL Urine Blood Negative (Negative) Urine Nitrite Negative (Negative) Urine Bilirubin Negative (Negative) Urine Urobilinogen Normal (Normal) mg/dL Ur Leukocyte Esterase Moderate H (Negative) Urine Microscopic RBC 0-3 (0-3) per hpf Urine Microscopic WBC 50-100 H (0-3) per hpf Ur Squamous Epith Cells Many H (None-Few) per lpf Urine Bacteria None Seen (None-Few) per hpf Hyaline Casts None Seen (None-Few) per lpf Ur Culture Indicated? NO. A (NO) - Radiology Data Radiology results reviewed: Yes I reviewed the patient's radiology results. Chest X-Ray 05/24/18 18:28 IMPRESSION: Cardiomegaly with no acute finding in the chest. D/ / Nelson Gannon MD / Nelson Gannon MD Interpreting Provider: Nelson Gannon MD Abdomen/Pelvis CT 05/24/18 19:36 IMPRESSION: 1. Several small sub 5 mm pulmonary nodules seen on prior chest CT of July 2017 have resolved however there are a few new small nodules as detailed above. 2. Central bronchiolar thickening and bibasilar more prominent bronchial wall thickening with some hazy stranding and nodularity is accentuated by motion artifact. Possible bronchiolitis. 3. Mediastinal lymphadenopathy again demonstrated but less prominent compared to 2017. 4. Recently noted bilateral pleural effusions have resolved. 5. Hepatic metastasis again demonstrated. D/ / Tom Lyles MD / Tom Lyles MD Interpreting Provider: Tom Lyles MD Chest CT 05/24/18 19:36
[2018-05-24 19:24] LABS: Troponin I 0.05 ng/mL (< 0.04)
[2018-05-24] MEDS ORDERED: Ipratropium/Albuterol Neb 3 ML IH ONE (19:24)
[2018-05-24 19:41] LABS: Bilirubin,Urine Negative (Negative); Blood,Urine Negative (Negative); Clarity,Urine Cloudy (Clear); Color,Urine Yellow (Yellow); Glucose,Urine (UA) Normal (Normal); Ketones,Urine Negative (Negative); Leukocyte Esterase,Urine Moderate (Negative); Nitrite,Urine Negative (Negative); PH,Urine 5.5 pH Units (5.0-8.0); Protein,Urine 100 mg/dL (Neg-Trace); Urobilinogen,Urine Normal (Normal)
[2018-05-24 19:47] LABS: Bacteria,Urine None Seen per hpf (None-Few); Hyaline Casts,Urine None Seen per lpf (None-Few); RBC,Urine 0-3 per hpf (0-3); Squamous Epithelial Cell,Urine Many per lpf (None-Few); WBC,Urine 50-100 per hpf (0-3)
--- NOTE | 2018-05-24 21:01 | Emergency Department Note ---
Disposition Clinical Impression: Hypoxia Sepsis Qualifiers: Sepsis type: sepsis due to unspecified organism Qualified Code(s): A41.9 - Sepsis, unspecified organism Disposition: Admitted As Inpatient Condition: Fair General Adult HPI - General Chief complaint: ED Shortness of Breath/Dyspnea Stated complaint: Possible sepsis,CA Pt Time Seen by Provider: 05/24/18 18:12 Source: patient, family (Daughter) Mode of arrival: wheelchair Limitations: no limitations Nursing Notes Reviewed: Yes Vital Signs Reviewed: Yes - History of Present Illness Pain Scale: 0 - Related Data Home Medications Medication Instructions Recorded Confirmed Aspirin [Adult Low Dose Aspirin EC] 81 mg PO DAILY 11/15/15 05/21/18 Insulin ASPART [Novolog Flexpen] 15 unit SQ TIDWM MDD + SLIDING 11/15/15 SCALE Ferrous Sulfate 325 mg PO DAILY 11/29/16 05/21/18 Hydralazine HCl 100 mg PO TID 11/29/16 05/21/18 [place]-3/Dha/Epa/Fish Oil [Fish Oil 1 cap PO DAILY 11/29/16 05/21/18 1,000 mg Softgel] ALPRAZolam [Xanax 0.5 MG Tablet] 0.5 mg PO BID PRN 08/08/17 05/21/18 Pravastatin Sodium [Pravachol] 80 mg PO QPM 08/08/17 05/21/18 Oxygen 2 l NS AD 09/22/17 05/21/18 Furosemide [Lasix] 40 mg PO DAILY PRN 10/19/17 05/21/18 Dulaglutide [Trulicity] 0.75 mg SQ TH 04/13/18 05/21/18 Gabapentin [Neurontin] 100 mg PO BID 04/13/18 05/21/18 Insulin Degludec [Tresiba 62 unit SQ HS 04/13/18 05/21/18 Flextouch U-200] dilTIAZem HCl [Diltiazem 24Hr ER] 120 mg PO DAILY 04/13/18 05/21/18 Previous Rx's Medication Instructions Recorded cloNIDine HCl [Clonidine HCl] 0.3 mg PO TID #90 tab 03/05/17 Albuterol Sulfate [Proair Hfa] 1 puff IH Q4H PRN #1 inh 05/11/17 Carvedilol [Coreg] 25 mg PO BIDWM #60 tablet 08/18/17 Mupirocin Calcium [Bactroban Nasal] 1 gm NS BID 5 Days #1 oint...g. 04/16/18 HYDROcodone/Acet 5/325 mg [[place] 1 tab PO Q6H PRN 7 Days #28 tab 05/15/18 5-325 mg] Ibuprofen 800 mg PO Q8H PRN #30 tablet 05/15/18 Allergies Allergy/AdvReac Type Severity Reaction Status Date / Time Sulfa (Sulfonamide Allergy Severe Swelling Verified 04/10/18 15:11 Antibiotics) of Lip/Tongue/Throat Past Medical History - Past Medical History Medical history: Reports: arthritis, asthma, atrial fibrillation, cancer, CHF, COPD, coronary artery disease, diabetes, hyperlipidemia, hypertension, myocardial infarction, venous stasis Surgical history: Reports: angioplasty/stent, cholecystectomy, colectomy, coronary bypass (CABG), other Psychiatric history: Reports: anxiety, depression 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 - Social History Smoking Status: Never smoker Smokeless Tobacco Status: No Alcohol use: Reports: none Drug use: Reports: none Physical Exam - General Limitations: no limitations General appearance: alert, other (Appears ill) Course Vital Signs Temperature 100.1 F H 05/24/18 18:17 Pulse Rate 108 05/24/18 18:17 Respiratory Rate 24 05/24/18 18:17 Blood Pressure 168/61 05/24/18 18:17 O2 Sat by Pulse Oximetry 80 05/24/18 18:17 Temperature 100.1 F H 05/24/18 18:30 Pulse Rate 106 05/24/18 19:13 Respiratory Rate 26 05/24/18 19:38 Blood Pressure 136/64 05/24/18 19:13 O2 Sat by Pulse Oximetry 99 05/24/18 19:38 Oxygen Delivery Oxygen Delivery Nasal Cannula Medical Decision Making - Medical Records Medical records reviewed: Yes I reviewed the patient's medical records. - Lab Data Lab results reviewed: Yes I reviewed the patient's lab results. Result diagrams: 05/24/18 18:40 05/24/18 18:40 Lab Results 05/24/18 05/24/18 05/24/18 Range/Units 18:40 18:40 18:40 WBC 13.8 H (4.3-11.1) K/mcL RBC 3.71 L (3.82-4.97) M/mcL Hgb 10.1 L (11.5-15.4) g/dL Hct 32.1 L (35.3-44.9) % MCV 86.5 (83.0-100.0) fL MCH 27.2 L (28.0-33.3) pg MCHC 31.5 L (31.6-35.5) g/dL RDW 15.4 H (11.5-14.5) % Plt Count 295 (140-400) K/mcL MPV 11.2 (9.4-12.4) fL Immature Gran % 0.5 (0-4) % Seg Neutrophils % 82.4 % Lymphocytes % 4.6 % Monocytes % 10.6 % Eosinophils % 1.5 % Basophils % 0.4 % Neutrophils # 11.4 H (1.6-8.9) K/mcL Lymphocytes # 0.6 (0.6-4.6) K/mcL Monocytes # 1.5 H (0.0-1.3) K/mcL Eosinophils # 0.2 (0.0-0.6) K/mcL Basophils # 0.1 (0.0-0.2) K/mcL Sodium 132 L (136-145) mEq/L Potassium 3.7 (3.5-5.1) mEq/L Chloride 96 L (98-107) mEq/L Carbon Dioxide 27 (23-29) mEq/L BUN 28 H (8-23) mg/dL Creatinine 1.60 H (0.60-1.20) mg/dL Est GFR ( Amer) 38 L (> 60) Est GFR (Non-Af Amer) 32 L (> 60) BUN/Creatinine Ratio 18 (6-26) Glucose 240 H (70-105) mg/dL Calculated Osmolality 287 (280-300) Lactic Acid 0.9 (0.5-2.2) mmol/L Calcium 8.7 (8.6-10.3) mg/dL Phosphorus 3.7 (2.7-4.5) mg/dL Magnesium 1.7 (1.6-2.6) mg/dL Troponin I 0.05 H* (< 0.04) ng/mL B-Natriuretic Peptide (Less than 100) pg/mL Urine Color (Yellow) Urine Clarity (Clear) Urine pH (5.0-8.0) pH Units Ur Specific [place] (1.010-1.025) Urine Protein (Neg-Trace) mg/dL Urine Glucose (UA) (Normal) mg/dL Urine Ketones (Negative) mg/dL Urine Blood (Negative) Urine Nitrite (Negative) Urine Bilirubin (Negative) Urine Urobilinogen (Normal) mg/dL Ur Leukocyte Esterase (Negative) Urine Microscopic RBC (0-3) per hpf Urine Microscopic WBC (0-3) per hpf Ur Squamous Epith Cells (None-Few) per lpf Urine Bacteria (None-Few) per hpf Hyaline Casts (None-Few) per lpf Ur Culture Indicated? (NO) 05/24/18 05/24/18 Range/Units 18:40 19:21 WBC (4.3-11.1) K/mcL RBC (3.82-4.97) M/mcL Hgb (11.5-15.4) g/dL Hct (35.3-44.9) % MCV (83.0-100.0) fL MCH (28.0-33.3) pg MCHC (31.6-35.5) g/dL RDW (11.5-14.5) % Plt Count (140-400) K/mcL MPV (9.4-12.4) fL Immature Gran % (0-4) % Seg Neutrophils % % Lymphocytes % % Monocytes % % Eosinophils % % Basophils % % Neutrophils # (1.6-8.9) K/mcL Lymphocytes # (0.6-4.6) K/mcL Monocytes # (0.0-1.3) K/mcL Eosinophils # (0.0-0.6) K/mcL Basophils # (0.0-0.2) K/mcL Sodium (136-145) mEq/L Potassium (3.5-5.1) mEq/L Chloride (98-107) mEq/L Carbon Dioxide (23-29) mEq/L BUN (8-23) mg/dL Creatinine (0.60-1.20) mg/dL Est GFR ( Amer) (> 60) Est GFR (Non-Af Amer) (> 60) BUN/Creatinine Ratio (6-26) Glucose (70-105) mg/dL Calculated Osmolality (280-300) Lactic Acid (0.5-2.2) mmol/L Calcium (8.6-10.3) mg/dL Phosphorus (2.7-4.5) mg/dL Magnesium (1.6-2.6) mg/dL Troponin I (< 0.04) ng/mL B-Natriuretic Peptide 755 H (Less than 100) pg/mL Urine Color Yellow (Yellow) Urine Clarity Cloudy A (Clear) Urine pH 5.5 (5.0-8.0) pH Units Ur Specific [place] 1.030 H (1.010-1.025) Urine Protein 100 H (Neg-Trace) mg/dL Urine Glucose (UA) Normal (Normal) mg/dL Urine Ketones Negative (Negative) mg/dL Urine Blood Negative (Negative) Urine Nitrite Negative (Negative) Urine Bilirubin Negative (Negative) Urine Urobilinogen Normal (Normal) mg/dL Ur Leukocyte Esterase Moderate H (Negative) Urine Microscopic RBC 0-3 (0-3) per hpf Urine Microscopic WBC 50-100 H (0-3) per hpf Ur Squamous Epith Cells Many H (None-Few) per lpf Urine Bacteria None Seen (None-Few) per hpf Hyaline Casts None Seen (None-Few) per lpf Ur Culture Indicated? NO. A (NO) - Radiology Data Radiology results reviewed: Yes I reviewed the patient's radiology results. Chest X-Ray 05/24/18 18:28 IMPRESSION: Cardiomegaly with no acute finding in the chest. D/ / Nelson Gannon MD / Nelson Gannon MD Interpreting Provider: Nelson Gannon MD Abdomen/Pelvis CT 05/24/18 19:36 IMPRESSION: 1. Several small sub 5 mm pulmonary nodules seen on prior chest CT of July 2017 have resolved however there are a few new small nodules as detailed above. 2. Central bronchiolar thickening and bibasilar more prominent bronchial wall thickening with some hazy stranding and nodularity is accentuated by motion artifact. Possible bronchiolitis. 3. Mediastinal lymphadenopathy again demonstrated but less prominent compared to 2017. 4. Recently noted bilateral pleural effusions have resolved. 5. Hepatic metastasis again demonstrated. D/ / Tom Lyles MD / Tom Lyles MD Interpreting Provider: Tom Lyles MD Chest CT 05/24/18 19:36 IMPRESSION: 1. Several small sub 5 mm pulmonary nodules seen on prior chest CT of July 2017 have resolved however there are a few new small nodules as detailed above. 2. Central bronchiolar thickening and bibasilar more prominent bronchial wall thickening with some hazy stranding and nodularity is accentuated by motion artifact. Possible bronchiolitis. 3. Mediastinal lymphadenopathy again demonstrated but less prominent compared to 2017. 4. Recently noted bilateral pleural effusions have resolved. 5. Hepatic metastasis again demonstrated. D/ / Tom Lyles MD / Tom Lyles MD Interpreting Provider: Tom Lyles MD Critical Care Time Critical Care Time: Yes Total Critical Care Time: 45 Attestation: Critical care performed: Time is exclusive of separately billable procedures. Time includes: direct patient care, patient reassessment, coordination of patient care, interpretation of data (laboratory data, radiology data, and respiratory data), review of patient's medical records, medical consultation and documentation of patient care. Procedures included in critical care time: Procedures excluded from critical care time: Attestation Statement - Attestation Attestation: I, Roque Feliciano MD, personally evaluated this patient and discussed their management with the resident physician. I reviewed the resident's note and agree with the documented findings, medical decision making, and plan of care. This patient was signed out at shift change from Dr. Chu Eubanks and Dr. Padilla. Please refer to their notes for complete details of history and physical examination. Patient was discharged from the hospital 8 days ago on . She had abdominal surgery for liver cancer on 05/08. Since going home patient has had a productive cough which has gotten progressively worse however daughter reports over the past few days there has been less sputum production. The sputum has been clear. They have not really noticed a fever at home but daughter reports every time she has called the doctor they advised her she had a low-grade fever. Here she was noted to have a temp of 100.1. She does have home oxygen which she uses at night. Today symptoms and has been much weaker and felt more ill. She has had shortness of breath and on arrival here her oxygen saturation was 76% initially in triage. This improved 80% and she was placed on oxygen by nasal cannula with improvement into the 90s. Patient denies any abdominal pain. No vomiting or diarrhea. She has been incontinent of urine. On examination patient is a well-developed obese elderly female in no acute distress. She is alert and oriented 3. There is no cyanosis or diaphoresis. Breath sounds are equal bilaterally with scattered diffuse bilateral expiratory wheezes. Heart is irregularly irregular. Abdomen is soft with no significant tenderness. Arrey are intact over the midline vertical incision with some minimal surrounding erythema. 2+ pitting edema of the lower extremities. Labs and imaging reviewed. Lactic acid normal. Patient does meet SIRS criteria. She is already had blood cultures obtained and antibiotics initiated with Zosyn, Levaquin, and vancomycin. At shift change awaiting imaging results prior to hospital admission. The hospitalist, Dr. Orozco, was consulted and accepted admission of the patient.
[2018-05-25] MEDS ORDERED: Naloxone 0.4 MG/ML INJ IVP PRN ×2 (01:38→01:50)
[2018-05-25] MEDS ORDERED: Furosemide 40 MG TABLET PO PRN (01:40)
[2018-05-25] MEDS ORDERED: Ipratropium/Albuterol Neb 3 ML IH PRN (02:13)
[2018-05-25] MEDS ORDERED: Furosemide 40 MG/4 ML VIAL IVP ONE (02:15)
--- NOTE | 2018-05-25 02:15 | Internal Med History&Physical ---
Date of Encounter: 05/25/18 Time of Encounter: 02:15 Internal Medicine - H&P: HPI Chief complaint: SOB/Cough History of present illness: Ms. Hitchcock is a 72 year old female with multiple comorbidities including coronary artery disease with history of CABG, diabetes, renal cell carcinoma with left nephrectomy, paroxysmal atrial fibrillation and recurrence of colon cancer with metastatic disease to liver status post robotic splenic flexure takedown, transverse colectomy on 05/09/18, who presents with worsening productive cough and congestion that has gotten progressively worse since recent discharge from the hospital on the . Was noted to be hypoxic at home today with an O2 saturation of 70%. Patient currently wears oxygen at home as needed, however, has been requiring continuous oxygen since placement of her her Port-A-Cath earlier today. Patient found to be hemodynamically stable with a low-grade fever of 100.1 in the ED. She was mildly tachycardic with a heart rate of 108 satting 94-99% on 3 L nasal cannula. Chest CT was performed which showed central bronchial thickening and bibasilar more prominent bronchial wall thickening with some hazy stranding and nodularity possibly secondary to bronchiolitis. Laboratory findings significant for mild leukocytosis of 13.8, elevated creatinine, BNP and mildly elevated troponin of 0.05. Past Med Surg Social Fam HX - Past Medical History Medical history: arthritis, asthma, atrial fibrillation, cancer, CHF, COPD, coronary artery disease, diabetes, hyperlipidemia, hypertension, myocardial infarction, venous stasis Additional medical history: Sleep apnea, Osteoporosis, Liver lesions, Pneumonia , UTI Psychiatric history: anxiety, depression - Past Surgical History Surgical History: angioplasty/stent, cholecystectomy, colectomy, coronary bypass (CABG), other Additional surgical history: Left nephrectomy- 2017, Excision of RLE mass 2017, colon resection - Social History Smoking Status: Never smoker Smokeless Tobacco Status: No Alcohol use: none Drug use: none - Family History Father Family Member Ethnicity: Non- Living Status: Hx Family Cardiac Disorders: Yes ( of NH) Hx Family Respiratory Disorders: No Hx Family Cancer: No Hx Family GI Disorders: No Hx Family Endocrine Disorder: No Hx Family Neuromuscular Disorders: No Hx Family Neurologic Disorders: No Hx Family HEENT Disorders: No Hx Family Autoimmune Disorders: No Brother History Unknown: Yes Family Member Ethnicity: Non- Living Status: Hx Family Cancer: Yes (Throat) Sister History Unknown: Yes Family Member Ethnicity: Non- Living Status: Hx Family Respiratory Disorders: Yes (Emphysema) Hx Family Cancer: Yes (Breast) Mother Family Member Ethnicity: Non- Living Status: Hx Family Cardiac Disorders: No Hx Family Respiratory Disorders: Yes (asthma) Hx Family Cancer: Yes Hx Family GI Disorders: No Hx Family Endocrine Disorder: No Hx Family Neuromuscular Disorders: No Hx Family Neurologic Disorders: No Hx Family HEENT Disorders: No Hx Family Autoimmune Disorders: No Internal Medicine - H&P: Meds Aspirin [Adult Low Dose Aspirin EC] 81 mg PO DAILY 11/15/15 [History] Insulin ASPART [Novolog Flexpen] 15 unit SQ TIDWM MDD + SLIDING SCALE 11/15/15 [ History] Ferrous Sulfate 325 mg PO DAILY 11/29/16 [History] Hydralazine HCl 100 mg PO TID 11/29/16 [History] [place]-3/Dha/Epa/Fish Oil [Fish Oil 1,000 mg Softgel] 1 cap PO DAILY 11/29/16 [ History] cloNIDine HCl [Clonidine HCl] 0.3 mg PO TID #90 tab 03/05/17 [Rx] Albuterol Sulfate [Proair Hfa] 1 puff IH Q4H PRN #1 inh 05/11/17 [Rx] ALPRAZolam [Xanax 0.5 MG Tablet] 0.5 mg PO BID PRN 08/08/17 [History] Pravastatin Sodium [Pravachol] 80 mg PO QPM 08/08/17 [History] Carvedilol [Coreg] 25 mg PO BIDWM #60 tablet 08/18/17 [Rx] Oxygen 2 l NS AD 09/22/17 [History] Furosemide [Lasix] 40 mg PO DAILY PRN 10/19/17 [History] Dulaglutide [Trulicity] 0.75 mg SQ TH 04/13/18 [History] Gabapentin [Neurontin] 100 mg PO BID 04/13/18 [History] Insulin Degludec [Tresiba Flextouch U-200] 62 unit SQ HS 04/13/18 [History] dilTIAZem HCl [Diltiazem 24Hr ER] 120 mg PO DAILY 04/13/18 [History] Mupirocin Calcium [Bactroban Nasal] 1 gm NS BID 5 Days #1 oint...g. 04/16/18 [Rx ] HYDROcodone/Acet 5/325 mg [[place] 5-325 mg] 1 tab PO Q6H PRN 7 Days #28 tab 05/15 [Rx] Ibuprofen 800 mg PO Q8H PRN #30 tablet 05/15/18 [Rx] Apixaban [Eliquis] 2.5 mg PO BID 05/25/18 [History] 3 Allergy/AdvReac Type Severity Reaction Status Date / Time Sulfa (Sulfonamide Allergy Severe Swelling Verified 04/10/18 15:11 Antibiotics) of Lip/Tongue/Throat All Systems PM: A 10-system review of systems was performed and is negative for pertinent findings except as documented above in the HPI. - Constitutional Constitutional: no chills, no fever(s), no night sweats - EENT Eyes: no change in vision, no discharge, no pain, no photophobia Ears: no ear discharge, no ear pain, no tinnitus Nose, mouth and throat: no dysphagia, no nasal discharge, no neck pain, no sore throat - Cardiovascular Cardiovascular ROS IM: no chest pain, no diaphoresis, no dyspnea, no lightheadedness, no palpitations, no syncope - Respiratory Respiratory: no cough, no dyspnea, no wheezing, no excessive phlegm production - Gastrointestinal Gastrointestinal: no abdominal pain, no diarrhea, no hematemesis, no hematochezia, no melena, no nausea, no vomiting - Genitourinary Genitourinary: no change in urinary stream, no dysuria, no flank pain, no hematuria - Musculoskeletal Musculoskeletal ROS IM: no numbness, no tingling - Integumentary Integumentary IM: no rash, no unusual bruising - Neurological Neurological ROS: no confusion, no convulsions, no focal weakness, no numbness, no tingling, no tremor(s) - Hematologic/Lymphatic Hematologic/Lymphatic: no easy bruising - Constitutional Vitals: Temp Pulse Resp BP Pulse Ox 98.3 F 63 20 157/74 93 05/25/18 00:28 05/25/18 00:28 05/25/18 00:28 05/25/18 00:28 05/25/18 00:28 Exam: General: Alert and oriented 3; lying in bed in mild distress Skin:Normal color, no rash, no lesions. HEENT:EOM, pupils equal, round and reactive. Cardiovascular:Normal S1 & S2, no rubs, murmurs or gallops. No JVD. Pulse regular. Lungs: Expiratory wheezes noted bilaterally in all lung cast; rhonchi primarily in the right posterior thorax appreciated Abdomen:Soft, mildly distended with mild tenderness diffusely; 4 cm scar above the umbilicus arnold intact Extremities: 2-3+ pitting edema of the lower extremities bilaterally Neurological:Normal cognition and motor skills. Pulses:Carotid and radial pulses normal +2. Rest of the physical exam is non contributory Internal Med - H&P Results - Labs CBC & Chem 7: 05/25/18 02:29 05/25/18 02:29 - Assessment and plan (1) HCAP (healthcare-associated pneumonia) Current Visit: Yes Status: Acute Assessment and plan: Worsening productive cough and dyspnea with rhonchi appreciated on lung exam. Despite unimpressive CT scan and given patient's recent admission we will start treatment for healthcare associated pneumonia. Continue O2 support. Follow-up Gram stain and sputum culture as well as blood cultures. (2) Sepsis Current Visit: Yes Status: Acute Assessment and plan: Patient meets SIRS with elevated white blood cell count in the setting of mild tachycardia with suspected Lower respiratory tract source of infection. Lactic acid within normal limits. Patient hemodynamically stable. Continue supportive care. Antibiotics. Qualifiers: Sepsis type: sepsis due to unspecified organism Qualified Code(s): A41.9 - Sepsis, unspecified organism (3) PAF (paroxysmal atrial fibrillation) Current Visit: No Status: Acute Assessment and plan: History of paroxysmal atrial fibrillation. EKG shows possible atrial flutter. However heart rate currently controlled. Patient at one point seems to have been on Eliquis. Unclear if medication was held due to recent abdominal procedure and Port-A-Cath placement. We will continue beta amos for now. Anticoagulation status will need to be confirmed with patient and family. Consider cardiology consult (4) Coronary artery disease Current Visit: No Status: Chronic Assessment and plan: Elevated troponin in the absence of EKG changes concerning for acute coronary event. We will continue with medical management of patient's coronary artery disease. Qualifiers: Coronary Disease-Associated Artery/Lesion type: bypass graft [place] vs. transplanted heart: [place] heart Associated angina: without angina Qualified Code(s): I25.810 - Atherosclerosis of coronary artery bypass graft(s) without angina pectoris (5) Diastolic CHF Current Visit: No Status: Chronic Assessment and plan: Bilateral 2-3+ lower extremity pitting edema. BNP 755. Patient has Membreno in place. We will give one-time dose of Lasix of 40 mg IV. Qualifiers: Heart failure chronicity: chronic Qualified Code(s): I50.32 - Chronic diastolic (congestive) heart failure (6) Acute kidney injury Current Visit: No Status: Acute Assessment and plan: We will monitor creatinine. One-time dose of Lasix given due to lower extremity edema. (7) Elevated troponin I level Current Visit: No Status: Acute Assessment and plan: Elevated troponin likely secondary to demand ischemia in the absence of symptoms of chest pain and any significant EKG changes. We will continue to trend troponin. (8) Local recurrence of malignant neoplasm of colon Current Visit: No Status: Acute (9) HTN (hypertension) Current Visit: No Status: Chronic Assessment and plan: Beta amos and calcium channel amos continued. We will hold clonidine in the setting of sepsis. 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
[2018-05-25 02:48] LABS: Basophils % 0.3 %; Eosinophils # 0.1 K/mcL (0.0-0.6); Eosinophils % 0.5 %; Hematocrit 29.8 % (35.3-44.9); Hemoglobin 9.2 g/dL (11.5-15.4); Immature Granulocytes % 0.5 % (0-4); Lymphocytes # 0.5 K/mcL (0.6-4.6); Lymphocytes % 4.3 %; Mean Corpuscular HGB Conc 30.9 g/dL (31.6-35.5); Mean Corpuscular Volume 87.4 fL (83.0-100.0); Mean Platelet Volume 11.1 fL (9.4-12.4); Monocytes # 1.3 K/mcL (0.0-1.3); Monocytes % 12.6 %; Neutrophils # 8.6 K/mcL (1.6-8.9); Platelet Count 226 K/mcL (140-400); Red Blood Count 3.41 M/mcL (3.82-4.97); Red Cell Distribution Width 15.2 % (11.5-14.5); Segmented Neutrophils % 81.8 %
[2018-05-25] MEDS: Acetaminophen 325 MG TABLET PO PRN ×2 (03:01→22:37)
[2018-05-25 03:05] LABS: Albumin 3.1 g/dL (3.5-5.7); Albumin/Globulin Ratio 0.9 (1.1-2.2); Bilirubin,Total 0.4 mg/dL (0.3-1.0); Calcium 8.5 mg/dL (8.6-10.3); Globulin 3.5 g/dL (2.4-3.5); Potassium 3.6 mEq/L (3.5-5.1); Total Protein 6.6 g/dL (6.4-8.9)
[2018-05-25] MEDS ORDERED: D5% in Water 1,000 ML IVC PRN (07:23)
[2018-05-25] MEDS ORDERED: Dextrose Gel 15 GM/37.5 ML TUBE PO PRN ×2 (07:23)
[2018-05-25] MEDS ORDERED: *HR* Dextrose 50 % in Water (Syg) 50 ML SYRINGE IVP PRN (07:23)
[2018-05-25] MEDS: Insulin LISPRO 300 UNITS/3 ML VIAL SQ SCH ×4 (07:51→21:21)
[2018-05-25] MEDS: Aspirin Enteric Coated 81 MG Tablet PO SCH (07:51)
[2018-05-25] MEDS: Diltiazem CD (24hr) 120 MG CAPSULE PO SCH (07:51)
[2018-05-25] MEDS: Gabapentin 100 MG CAPSULE PO SCH ×2 (07:51→20:12)
[2018-05-25] MEDS: *HR* Heparin 5,000 UNIT/ML VIAL SQ SCH ×3 (07:52→22:37)
[2018-05-25] MEDS: Nystatin POWDER 30 GM BOTTLE TP SCH ×2 (08:02→21:23)
[2018-05-25] MEDS ORDERED: hydrALAZINE 25 MG TABLET PO SCH (09:00)
[2018-05-25] MEDS ORDERED: cloNIDine HCl 0.1 MG TABLET PO SCH (09:00)
[2018-05-25] MEDS ORDERED: Vancomycin 1 EACH in 0.9 % Sodium Chloride 250 ML IVPB SCH (09:00)
--- NOTE | 2018-05-25 10:42 | Event Note ---
Date of Encounter: 05/25/18 Time of Encounter: 10:42 72-year-old female with coronary artery disease, renal cell cancer status post nephrectomy, A. fib, metastatic colon cancer with multiple surgeries, colectomy 05/09 was admitted and being managed for sepsis secondary to most healthcare associated pneumonia. In addition, she has acute on chronic hypoxic respiratory failure secondary to pneumonia and likely CHF exacerbation Seen and evaluated at the bedside this a.m, in some form of painful distress and wheezing diffusely, she is full code General: Alert and oriented 3; lying in bed in mild distress Skin:Normal color, no rash, no lesions. HEENT:EOM, pupils equal, round and reactive. Cardiovascular:Normal S1 & S2, no rubs, murmurs or gallops. No JVD. Pulse regular. Lungs: Expiratory wheezes noted bilaterally in all lung cast; rhonchi primarily in the right posterior thorax appreciated Abdomen:Soft, mildly distended with mild tenderness diffusely; 4 cm scar above the umbilicus arnold intact Extremities: 2-3+ pitting edema of the lower extremities bilaterally Neurological:Normal cognition and motor skills. Pulses:Carotid and radial pulses normal +2. Labs and Imaging: Leukocytosis resolved, renal function at baseline, liver function tests unremarkable, lactate is within normal limit. Troponin adynamic at 0.04. Urine analysis without evidence of infection. Plan is to continue current management with antibiotics, DuoNeb's, steroids, oxygen supplement and supportive care. Patient is full code. Resume home medications
[2018-05-25] MEDS: Ipratropium/Albuterol Neb 3 ML IH SCH ×3 (10:47→22:16)
[2018-05-25] MEDS ORDERED: Insulin LISPRO 300 UNITS/3 ML VIAL SQ SCH (12:00)
[2018-05-25] MEDS: Cefepime HCl 2,000 MG in Water for inj. (sterile) 20 ML 20 ML IVP SCH (14:09)
[2018-05-25] MEDS: Furosemide 20 MG/2 ML VIAL IVP SCH (14:09)
[2018-05-25] MEDS: cloNIDine HCl 0.1 MG TABLET PO SCH ×2 (16:39→20:12)
[2018-05-25] MEDS: Ondansetron 4 MG/2 ML VIAL IVP PRN (21:16)
[2018-05-26] MEDS: Ipratropium/Albuterol Neb 3 ML IH SCH ×4 (04:04→22:42)
[2018-05-26 05:23] LABS: Basophils % 0.4 %; Eosinophils # 0.1 K/mcL (0.0-0.6); Eosinophils % 0.8 %; Hematocrit 30.7 % (35.3-44.9); Hemoglobin 9.4 g/dL (11.5-15.4); Immature Granulocytes % 0.5 % (0-4); Lymphocytes # 0.9 K/mcL (0.6-4.6); Mean Corpuscular HGB Conc 30.6 g/dL (31.6-35.5); Mean Corpuscular Hemoglobin 26.6 pg (28.0-33.3); Mean Platelet Volume 11.3 fL (9.4-12.4); Monocytes # 1.7 K/mcL (0.0-1.3); Monocytes % 17.1 %; Neutrophils # 7.2 K/mcL (1.6-8.9); Platelet Count 235 K/mcL (140-400); Red Blood Count 3.53 M/mcL (3.82-4.97); Red Cell Distribution Width 15.2 % (11.5-14.5); Segmented Neutrophils % 72.2 %
[2018-05-26 05:40] LABS: Calcium 8.6 mg/dL (8.6-10.3); Potassium 3.7 mEq/L (3.5-5.1)
[2018-05-26] MEDS: *HR* Heparin 5,000 UNIT/ML VIAL SQ SCH ×3 (06:26→21:59)
--- NOTE | 2018-05-26 07:38 | Internal Med Progress Note ---
Hospitalist Progress Note - Encounter Date of Encounter: 05/26/18 Time of Encounter: 11:00 - Subjective Interval History: Patient with a past medical history significant for renal cell carcinoma with recent diagnosis of colon cancer with metastases to liver who presented with shortness of breath/cough found to have HAP. Patient still requiring supplemental oxygenation this morning but has been afebrile for 24 hours and leukocytosis has resolved. - Exam Vitals: Temp Pulse Resp BP Pulse Ox 98.1 F 107 17 153/95 95 05/26/18 04:25 05/26/18 04:25 05/26/18 04:25 05/26/18 04:05/26/18 04:25 Exam: Gen.: Nonacute distress, alert and oriented 3 ENT: Mucosal membranes moist Respiratory: Rhonchi bilaterally on exam Cardiovascular: Normal S1 and S2 regular rate rhythm no murmurs rubs or gallops Abdomen: Soft, nontender and nondistended with positive bowel sounds Extremities: No lower extremity edema Skin: Normal color - Assessment and Plan (1) HCAP (healthcare-associated pneumonia) Current Visit: Yes Status: Acute Assessment and Plan: Worsening productive cough and dyspnea with rhonchi appreciated on lung exam. Despite unimpressive CT scan and given patient's recent admission will continue treatment for healthcare associated pneumonia as patient has not been afebrile for 24 hours and leukocytosis has resolved. Sputum/blood cultures pending Continue O2 support. (2) Sepsis Current Visit: Yes Status: Acute Assessment and Plan: Resolved; continue IV antibiotics as above (3) Elevated troponin I level Current Visit: No Status: Acute Assessment and Plan: Elevated troponin likely secondary to demand ischemia in the absence of symptoms of chest pain and any significant EKG changes. 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 Continuing IV diuresis (8) CKD (chronic kidney disease) stage 3, GFR 30-59 ml/min Current Visit: No Status: Chronic Assessment and Plan: Creatinine appears to be at baseline; continue to monitor (9) HTN (hypertension) Current Visit: No Status: Chronic Assessment and Plan: Blood pressures slightly elevated. Will continue Beta amos, calcium channel amos and clonidine. (10) Diabetes mellitus Current Visit: No Status: Chronic Assessment and Plan: Relatively controlled; continue sliding scale insulin (11) DVT prophylaxis Current Visit: No Status: Acute Assessment and Plan: Subcutaneous heparin - Time Spent with Patient Total time spent is greater than 50% in coordination of care (as documented) at patient's floor/unit and/or counseling patient: Internal Medicine: Result - Labs CBC & Chem 7: 05/26/18 04:51 05/26/18 04:51 Labs: Short CBC 05/26/18 Range/Units 04:51 WBC 9.9 (4.3-11.1) K/mcL Hgb 9.4 L (11.5-15.4) g/dL Hct 30.7 L (35.3-44.9) % Plt Count 235 (140-400) K/mcL Neutrophils # 7.2 (1.6-8.9) K/mcL BMP 05/26/18 04:51 Sodium 137 Potassium 3.7 Chloride 98 Carbon Dioxide 31 H BUN 27 H Creatinine 1.55 H Glucose 175 H Calcium 8.6 Cardiac Enzymes 05/25/18 Range/Units 08:47 Troponin I 0.04 H* (< 0.04) ng/mL Consult Discharge Plan - Plan Referrals: Geremias Ryan DO [Primary Care Provider] - (2) Sepsis Qualifiers: Sepsis type: sepsis due to unspecified organism Qualified Code(s): A41.9 - Sepsis, unspecified organism (5) Coronary artery disease Qualifiers: Coronary Disease-Associated Artery/Lesion type: bypass graft [place] vs. transplanted heart: [place] heart Associated angina: without angina Qualified Code(s): I25.810 - Atherosclerosis of coronary artery bypass graft(s) without angina pectoris (7) Diastolic CHF Qualifiers: Heart failure chronicity: chronic Qualified Code(s): I50.32 - Chronic diastolic (congestive) heart failure (9) HTN (hypertension) Qualifiers: Hypertension type: essential hypertension Qualified Code(s): I10 - Essential (primary) hypertension (10) Diabetes mellitus Qualifiers: Diabetes mellitus type: type 2 Diabetes mellitus fci insulin use: with intermodal customer service use Diabetes mellitus complication status: with hyperglycemia Qualified Code(s): E11.65 - Type 2 diabetes mellitus with hyperglycemia; Z79.4 - nursing home (current) use of insulin
[2018-05-26] MEDS: Diltiazem CD (24hr) 120 MG CAPSULE PO SCH (08:11)
[2018-05-26] MEDS: cloNIDine HCl 0.1 MG TABLET PO SCH ×3 (08:11→21:44)
[2018-05-26] MEDS: Aspirin Enteric Coated 81 MG Tablet PO SCH (08:11)
[2018-05-26] MEDS: Gabapentin 100 MG CAPSULE PO SCH ×2 (08:11→21:44)
[2018-05-26] MEDS: Furosemide 20 MG/2 ML VIAL IVP SCH (08:12)
[2018-05-26] MEDS: Insulin LISPRO 300 UNITS/3 ML VIAL SQ SCH ×4 (08:12→21:49)
[2018-05-26] MEDS: Nystatin POWDER 30 GM BOTTLE TP SCH ×2 (08:41→21:45)
[2018-05-26] MEDS: Cefepime HCl 2,000 MG in Water for inj. (sterile) 20 ML 20 ML IVP SCH (13:12)
[2018-05-27] MEDS: Ipratropium/Albuterol Neb 3 ML IH SCH ×4 (04:43→22:18)
[2018-05-27] MEDS: *HR* Heparin 5,000 UNIT/ML VIAL SQ SCH ×2 (06:10→14:04)
--- NOTE | 2018-05-27 08:22 | Internal Med Progress Note ---
Hospitalist Progress Note - Encounter Date of Encounter: 05/27/18 Time of Encounter: 11:00 - Subjective Interval History: Patient with a past medical history significant for renal cell carcinoma with recent diagnosis of colon cancer with metastases to liver who presented with shortness of breath/cough found to have HAP. Patient no longer requiring supplemental oxygenation this morning but has been afebrile and leukocytosis has resolved. However patient now in atrial fibrillation with RVR and has been started on Cardizem drip - Exam Vitals: Temp Pulse Resp BP Pulse Ox 98.3 F 114 20 154/92 87 05/27/18 08:01 05/27/18 08:01 05/27/18 08:01 05/27/18 08:01 05/27/18 08:01 Exam: Gen.: Nonacute distress, alert and oriented 3 ENT: Mucosal membranes moist Respiratory: Rhonchi bilaterally on exam Cardiovascular: Normal S1 and S2 regular rate rhythm no murmurs rubs or gallops Abdomen: Soft, nontender and nondistended with positive bowel sounds Extremities: No lower extremity edema Skin: Normal color - Assessment and Plan (1) HCAP (healthcare-associated pneumonia) Current Visit: Yes Status: Acute Assessment and Plan: Worsening productive cough and dyspnea with rhonchi appreciated on lung exam. Despite unimpressive CT scan and given patient's recent admission will continue treatment for healthcare associated pneumonia as patient has not been afebrile for 24 hours and leukocytosis has resolved. However patient still requiring continuous supplemental oxygenation Sputum/blood cultures pending Will continue day 3 of IV cefepime and IV vancomycin. (2) Sepsis Current Visit: Yes Status: Acute Assessment and Plan: Resolved; continue IV antibiotics as above (3) Elevated troponin I level Current Visit: No Status: Acute Assessment and Plan: Elevated troponin likely secondary to demand ischemia in the absence of symptoms of chest pain and any significant EKG changes. 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 Continuing IV diuresis (8) CKD (chronic kidney disease) stage 3, GFR 30-59 ml/min Current Visit: No Status: Chronic Assessment and Plan: Creatinine appears to be at baseline; continue to monitor (9) HTN (hypertension) Current Visit: No Status: Chronic Assessment and Plan: Blood pressures slightly elevated. Will continue Beta amos, calcium channel amos and clonidine. (10) Diabetes mellitus Current Visit: No Status: Chronic Assessment and Plan: Relatively controlled; continue sliding scale insulin (11) DVT prophylaxis Current Visit: No Status: Acute Assessment and Plan: Subcutaneous heparin - Time Spent with Patient Total time spent is greater than 50% in coordination of care (as documented) at patient's floor/unit and/or counseling patient: Internal Medicine: Result - Labs CBC & Chem 7: 05/27/18 08:22 05/27/18 08:22 Consult Discharge Plan - Plan Referrals: Geremias Ryan DO [Primary Care Provider] - (2) Sepsis Qualifiers: Sepsis type: sepsis due to unspecified organism Qualified Code(s): A41.9 - Sepsis, unspecified organism (5) Coronary artery disease Qualifiers: Coronary Disease-Associated Artery/Lesion type: bypass graft [place] vs. transplanted heart: [place] heart Associated angina: without angina Qualified Code(s): I25.810 - Atherosclerosis of coronary artery bypass graft(s) without angina pectoris (7) Diastolic CHF Qualifiers: Heart failure chronicity: chronic Qualified Code(s): I50.32 - Chronic diastolic (congestive) heart failure (9) HTN (hypertension) Qualifiers: Hypertension type: essential hypertension Qualified Code(s): I10 - Essential (primary) hypertension (10) Diabetes mellitus Qualifiers: Diabetes mellitus type: type 2 Diabetes mellitus assisted insulin use: with assisted use Diabetes mellitus complication status: with hyperglycemia Qualified Code(s): E11.65 - Type 2 diabetes mellitus with hyperglycemia; Z79.4 - residential (current) use of insulin
[2018-05-27] MEDS: cloNIDine HCl 0.1 MG TABLET PO SCH ×3 (08:24→22:59)
[2018-05-27] MEDS: Aspirin Enteric Coated 81 MG Tablet PO SCH (08:24)
[2018-05-27] MEDS: Gabapentin 100 MG CAPSULE PO SCH ×2 (08:24→23:00)
[2018-05-27] MEDS: Furosemide 20 MG/2 ML VIAL IVP SCH (08:25)
[2018-05-27] MEDS: Diltiazem CD (24hr) 120 MG CAPSULE PO SCH (08:25)
[2018-05-27] MEDS: Insulin LISPRO 300 UNITS/3 ML VIAL SQ SCH ×4 (08:25→23:05)
[2018-05-27 08:49] LABS: Basophils % 0.2 %; Eosinophils % 0.3 %; Hematocrit 31.8 % (35.3-44.9); Hemoglobin 9.7 g/dL (11.5-15.4); Immature Granulocytes % 0.5 % (0-4); Lymphocytes # 0.9 K/mcL (0.6-4.6); Lymphocytes % 8.9 %; Mean Corpuscular HGB Conc 30.5 g/dL (31.6-35.5); Mean Corpuscular Hemoglobin 26.5 pg (28.0-33.3); Mean Corpuscular Volume 86.9 fL (83.0-100.0); Mean Platelet Volume 11.1 fL (9.4-12.4); Monocytes # 1.4 K/mcL (0.0-1.3); Monocytes % 13.3 %; Neutrophils # 7.8 K/mcL (1.6-8.9); Platelet Count 211 K/mcL (140-400); Red Blood Count 3.66 M/mcL (3.82-4.97); Segmented Neutrophils % 76.8 %
[2018-05-27] MEDS: Nystatin POWDER 30 GM BOTTLE TP SCH ×2 (08:49→23:00)
[2018-05-27 09:09] LABS: Calcium 8.8 mg/dL (8.6-10.3); Potassium 4.1 mEq/L (3.5-5.1)
[2018-05-27] MEDS ORDERED: *HR* Metoprolol 5 MG/5 ML VIAL IVP ONE (11:14)
[2018-05-27] MEDS: Cefepime HCl 2,000 MG in Water for inj. (sterile) 20 ML 20 ML IVP SCH (13:57)
[2018-05-27] MEDS: Ondansetron 4 MG/2 ML VIAL IVP PRN (14:06)
[2018-05-27] MEDS: ALPRAZolam 0.5 MG TABLET PO PRN (15:06)
--- NOTE | 2018-05-27 21:45 | Electrocardiograph Report ---
[address] [address] Test Date: 2018-05-24 Pat Name: Katie Hitchcock Department: EXAM1 Room: 2A13 Gender: F Compensation Consulting Manager: : [id number] Requested By: Chu Eubanks Order Number: [id number] Reading MD: Aleksandar Ramirez Measurements Intervals [place] Rate: 104 P: OR: QRS: 65 QRSD: 118 T: 1 QT: 407 QTc: 449 Interpretive Statements Atrial flutter PVCs or aberrant conduction Incomplete right bundle branch block Electronically Signed On 05-27-2018 21:43:43 EDT by Aleksandar Ramirez
[2018-05-27] MEDS: Apixaban 5 MG TABLET PO SCH (22:59)
[2018-05-28] MEDS: Ipratropium/Albuterol Neb 3 ML IH SCH ×3 (03:41→16:14)
--- NOTE | 2018-05-28 07:52 | Internal Med Progress Note ---
Hospitalist Progress Note - Encounter Date of Encounter: 05/28/18 Time of Encounter: 11:00 - Subjective Interval History: Patient with a past medical history significant for renal cell carcinoma with recent diagnosis of colon cancer with metastases to liver who presented with shortness of breath/cough found to have HAP. Patient no longer requiring supplemental oxygenation this morning but has been afebrile and leukocytosis has resolved. However patient developed atrial fibrillation with RVR on 05/27/18 and continues to be on Cardizem drip - Exam Vitals: Temp Pulse Resp BP Pulse Ox 99.0 F 115 15 138/85 95 05/28/18 07:11 05/28/18 07:11 05/28/18 07:11 05/28/18 07:11 05/28/18 07:11 Exam: Gen.: Nonacute distress, alert and oriented 3 ENT: Mucosal membranes moist Respiratory: Rhonchi bilaterally on exam Cardiovascular: Normal S1 and S2 regular rate rhythm no murmurs rubs or gallops Abdomen: Soft, nontender and nondistended with positive bowel sounds Extremities: No lower extremity edema Skin: Normal color - Assessment and Plan (1) HCAP (healthcare-associated pneumonia) Current Visit: Yes Status: Acute Assessment and Plan: Worsening productive cough and dyspnea with rhonchi appreciated on lung exam. Despite unimpressive CT scan and given patient's recent admission will continue treatment for healthcare associated pneumonia as patient has not been afebrile for 24 hours and leukocytosis has resolved. However patient still requiring continuous supplemental oxygenation Sputum/blood cultures pending Will continue day 4 of IV cefepime and IV vancomycin. (2) Sepsis Current Visit: Yes Status: Acute Assessment and Plan: Resolved; continue IV antibiotics as above (3) PAF (paroxysmal atrial fibrillation) Current Visit: No Status: Acute Assessment and Plan: Patient developed atrial fibrillation with RVR on 05/27/18 and remains on Cardizem drip (4) Elevated troponin I level Current Visit: No Status: Acute Assessment and Plan: Elevated troponin likely secondary to demand ischemia in the absence of symptoms of chest pain and any significant EKG changes. 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 Continuing IV diuresis (8) CKD (chronic kidney disease) stage 3, GFR 30-59 ml/min Current Visit: No Status: Chronic Assessment and Plan: Creatinine appears to be at baseline; continue to monitor (9) HTN (hypertension) Current Visit: No Status: Chronic Assessment and Plan: Blood pressures slightly elevated. Will continue Beta amos, calcium channel amos and clonidine. (10) Diabetes mellitus Current Visit: No Status: Chronic Assessment and Plan: Relatively controlled; continue sliding scale insulin (11) DVT prophylaxis Current Visit: No Status: Acute Assessment and Plan: On Eliquis - Time Spent with Patient Total time spent is greater than 50% in coordination of care (as documented) at patient's floor/unit and/or counseling patient: Internal Medicine: Result - Labs CBC & Chem 7: 05/28/18 08:28 05/28/18 08:28 Labs: Short CBC 05/27/18 Range/Units 08:22 WBC 10.2 (4.3-11.1) K/mcL Hgb 9.7 L (11.5-15.4) g/dL Hct 31.8 L (35.3-44.9) % Plt Count 211 (140-400) K/mcL Neutrophils # 7.8 (1.6-8.9) K/mcL BMP 05/27/18 08:22 Sodium 135 L Potassium 4.1 Chloride 96 L Carbon Dioxide 32 H BUN 30 H Creatinine 1.47 H Glucose 230 H Calcium 8.8 Consult Discharge Plan - Plan Referrals: Geremias Ryan DO [Primary Care Provider] - (2) Sepsis Qualifiers: Sepsis type: sepsis due to unspecified organism Qualified Code(s): A41.9 - Sepsis, unspecified organism (6) Coronary artery disease Qualifiers: Coronary Disease-Associated Artery/Lesion type: bypass graft [place] vs. transplanted heart: [place] heart Associated angina: without angina Qualified Code(s): I25.810 - Atherosclerosis of coronary artery bypass graft(s) without angina pectoris (7) Diastolic CHF Qualifiers: Heart failure chronicity: chronic Qualified Code(s): I50.32 - Chronic diastolic (congestive) heart failure (9) HTN (hypertension) Qualifiers: Hypertension type: essential hypertension Qualified Code(s): I10 - Essential (primary) hypertension (10) Diabetes mellitus Qualifiers: Diabetes mellitus type: type 2 Diabetes mellitus half-way insulin use: with half-way use Diabetes mellitus complication status: with hyperglycemia Qualified Code(s): E11.65 - Type 2 diabetes mellitus with hyperglycemia; Z79.4 - intermodal dispatcher (current) use of insulin
[2018-05-28] MEDS: Aspirin Enteric Coated 81 MG Tablet PO SCH (08:33)
[2018-05-28] MEDS: Gabapentin 100 MG CAPSULE PO SCH ×2 (08:33→20:44)
[2018-05-28] MEDS: Diltiazem CD (24hr) 120 MG CAPSULE PO SCH (08:33)
[2018-05-28] MEDS: Apixaban 5 MG TABLET PO SCH ×2 (08:33→20:44)
[2018-05-28] MEDS: cloNIDine HCl 0.1 MG TABLET PO SCH ×3 (08:33→20:44)
[2018-05-28] MEDS: Insulin LISPRO 300 UNITS/3 ML VIAL SQ SCH ×4 (08:34→22:22)
[2018-05-28 08:49] LABS: Basophils % 0.4 %; Eosinophils # 0.1 K/mcL (0.0-0.6); Eosinophils % 0.8 %; Hematocrit 30.2 % (35.3-44.9); Hemoglobin 9.1 g/dL (11.5-15.4); Lymphocytes % 10.9 %; Mean Corpuscular HGB Conc 30.1 g/dL (31.6-35.5); Mean Corpuscular Hemoglobin 26.5 pg (28.0-33.3); Mean Corpuscular Volume 87.8 fL (83.0-100.0); Mean Platelet Volume 11.2 fL (9.4-12.4); Monocytes # 1.1 K/mcL (0.0-1.3); Monocytes % 12.1 %; Platelet Count 212 K/mcL (140-400); Red Blood Count 3.44 M/mcL (3.82-4.97); Red Cell Distribution Width 15.3 % (11.5-14.5); Segmented Neutrophils % 74.8 %
[2018-05-28 09:01] LABS: Calcium 8.6 mg/dL (8.6-10.3); Potassium 4.3 mEq/L (3.5-5.1)
[2018-05-28] MEDS ORDERED: Insulin DETEMIR 100 UNIT/ML X5UNITS SQ SCH (12:15)
[2018-05-28] MEDS: Furosemide 20 MG/2 ML VIAL IVP SCH (12:57)
[2018-05-28] MEDS: Nystatin POWDER 30 GM BOTTLE TP SCH ×2 (13:11→20:44)
[2018-05-28] MEDS ORDERED: Diltiazem CD (24hr) 120 MG CAPSULE PO ONE (13:56)
--- NOTE | 2018-05-28 14:10 | Cardiology Consult Note ---
Date of Encounter: 05/28/18 Time of Encounter: 14:06 Assessment and Plan (1) Atrial flutter with rapid ventricular response Current Visit: Yes Status: Acute Known hx PAF/PAFl. Now in setting of HCAP. Home meds included Coreg 25mg BID and Cardizem CD 120mg daily. Eliquis recently on hold due to surgery with post op anemia requiring multiple transfusions. HR 90s-low 100s at bedside. Cardizem gtt listed on med list, currently not on. 12 hr tele AVG HR 91, A-Flutter, 11 beat run NSVT. Will increase PO Cardizem to 240mg daily. Extra 120mg dose now. Continue telemetry. Eliquis was restarted by primary team. Monitor H&H closely given recent surgery/ bleeding, currently stable. TTE 03/2018 EF preserved. Continue to follow. (2) Coronary artery disease Current Visit: No Status: Chronic Known hx CABG. LHC at [facility] 04/2017 with reported SVG occluded with no intervention and medical management was recommended. Continue ASA, Statin, BB. Qualifiers: Coronary Disease-Associated Artery/Lesion type: bypass graft [place] vs. transplanted heart: [place] heart Associated angina: without angina Qualified Code(s): I25.810 - Atherosclerosis of coronary artery bypass graft(s) without angina pectoris (3) Elevated troponin Current Visit: No Status: Resolved Troponin 0.05, 0.04 x 2 in setting of HCAP. Demand ischemia. Nondiagnostic for ACS. Denies chest pain. TTE 03/2018 EF preserved. Discussion w patient/family: The assessment and plan as outlined above was discussed with the patient and/or family members who expressed understanding and agreement. All questions were answered. Thank you for involving us in the care of your patient. Please call with any questions. I will discuss all the above with Dr. Malik and make changes as necessary. History of Present Illness Consult date: 05/28/18 Requesting physician: Jarrod Miranda Consult reason: A-Flutter RVR Chief complaint: Dyspnea History of present illness: Ms. Hitchcock is a 72 year old female with PMH of CAD with history of CABG, diabetes, renal cell carcinoma s/p left nephrectomy, PAF, recent recurrence of colon cancer with metastatic disease to liver status post robotic splenic flexure takedown, transverse colectomy on 05/09/18, who presents with worsening productive cough and congestion that has gotten progressively worse since recent discharge from the hospital on the . Reportedly hypoxic at home with SpO2 70%. Previously wore PRN O2, but then started requiring continuous oxygen. In ED, found to have low-grade fever of 100.1 in the ED. She was mildly tachycardic with a heart rate of 108 satting 94-99% on 3 L nasal cannula. Currently being treated for HCAP. A-Flutter RVR, was on cardizem gtt-- currently off. Cardiology consulted for further recs. Pt denies chest pain. She reports intermittent palpitations. Recent CV testing: TTE 04/13/18: LVEF 55%. Normal LV chamber size, wall thickness and function. Atypical septal motion noted. No evidence of a PFO with agitated saline contrast. LHC at [facility] 04/2017 with reported SVG occluded with no intervention and medical management was recommended. Past Med Surg Social Fam HX - Past Medical History Medical history: arthritis, asthma, atrial fibrillation, cancer, CHF, COPD, coronary artery disease, diabetes, hyperlipidemia, hypertension, myocardial infarction, venous stasis Additional medical history: Sleep apnea, Osteoporosis, Liver lesions, Pneumonia , UTI Psychiatric history: anxiety, depression - Past Surgical History Surgical History: angioplasty/stent, cholecystectomy, colectomy, coronary bypass (CABG), other Additional surgical history: Left nephrectomy- 2016, Excision of RLE mass 2016, colon resection - Social History Smoking Status: Never smoker Smokeless Tobacco Status: No Alcohol use: none Drug use: none - Family History Father Family Member Ethnicity: Non- Living Status: Hx Family Cardiac Disorders: Yes ( of [place]) Hx Family Respiratory Disorders: No Hx Family Cancer: No Hx Family GI Disorders: No Hx Family Endocrine Disorder: No Hx Family Neuromuscular Disorders: No Hx Family Neurologic Disorders: No Hx Family HEENT Disorders: No Hx Family Autoimmune Disorders: No Brother History Unknown: Yes Family Member Ethnicity: Non- Living Status: Hx Family Cancer: Yes (Throat) Sister History Unknown: Yes Family Member Ethnicity: Non- Living Status: Hx Family Respiratory Disorders: Yes (Emphysema) Hx Family Cancer: Yes (Breast) Mother Family Member Ethnicity: Non- Living Status: Hx Family Cardiac Disorders: No Hx Family Respiratory Disorders: Yes (asthma) Hx Family Cancer: Yes Hx Family GI Disorders: No Hx Family Endocrine Disorder: No Hx Family Neuromuscular Disorders: No Hx Family Neurologic Disorders: No Hx Family HEENT Disorders: No Hx Family Autoimmune Disorders: No Medications and Allergies Aspirin [Adult Low Dose Aspirin EC] 81 mg PO DAILY 11/15/15 [History] Insulin ASPART [Novolog Flexpen] 15 unit SQ TIDWM MDD + SLIDING SCALE 11/15/15 [ History] Ferrous Sulfate 325 mg PO DAILY 11/29/16 [History] Hydralazine HCl 100 mg PO TID 11/29/16 [History] [place]-3/Dha/Epa/Fish Oil [Fish Oil 1,000 mg Softgel] 1 cap PO DAILY 11/29/16 [ History] cloNIDine HCl [Clonidine HCl] 0.3 mg PO TID #90 tab 03/05/17 [Rx] Albuterol Sulfate [Proair Hfa] 1 puff IH Q4H PRN #1 inh 05/11/17 [Rx] ALPRAZolam [Xanax 0.5 MG Tablet] 0.5 mg PO BID PRN 08/08/17 [History] Pravastatin Sodium [Pravachol] 80 mg PO QPM 08/08/17 [History] Carvedilol [Coreg] 25 mg PO BIDWM #60 tablet 08/18/17 [Rx] Oxygen 2 l NS AD 09/22/17 [History] Furosemide [Lasix] 40 mg PO DAILY PRN 10/19/17 [History] Dulaglutide [Trulicity] 0.75 mg SQ TH 04/13/18 [History] Gabapentin [Neurontin] 100 mg PO BID 04/13/18 [History] Insulin Degludec [Tresiba Flextouch U-200] 62 unit SQ HS 04/13/18 [History] dilTIAZem HCl [Diltiazem 24Hr ER] 120 mg PO DAILY 04/13/18 [History] Mupirocin Calcium [Bactroban Nasal] 1 gm NS BID 5 Days #1 oint...g. 04/16/18 [Rx ] HYDROcodone/Acet 5/325 mg [[place] 5-325 mg] 1 tab PO Q6H PRN 7 Days #28 tab 05/15 [Rx] Ibuprofen 800 mg PO Q8H PRN #30 tablet 05/15/18 [Rx] Apixaban [Eliquis] 2.5 mg PO BID 05/25/18 [History] 3 Allergy/AdvReac Type Severity Reaction Status Date / Time Sulfa (Sulfonamide Allergy Severe Swelling Verified 04/10/18 15:11 Antibiotics) of Lip/Tongue/Throat All Systems Review: The remainder of the systems were reviewed and are negative - Cardiovascular Cardiovascular: as per HPI, dyspnea at rest, dyspnea on exertion - Respiratory Respiratory: cough, dyspnea Physical Examination Vital Signs, Last 4 Hours Temp Pulse Resp BP Pulse Ox 05/28/18 11:47 99.0 F 81 18 187/81 98 05/28/18 11:13 18 97 Vital Signs Temp Pulse Resp BP Pulse Ox 05/28/18 11:47 99.0 F 81 18 187/81 98 05/28/18 11:13 18 97 05/28/18 07:11 99.0 F 115 15 138/85 95 05/28/18 04:31 97.4 F L 122 18 116/77 96 05/28/18 03:42 20 94 05/27/18 22:18 16 100 05/27/18 20:43 107 16 150/67 94 05/27/18 19:28 98.6 F 100 18 143/80 100 05/27/18 17:06 99.4 F 120 20 120/75 95 05/27/18 17:05 99.4 F 120 20 120/75 79 05/27/18 16:09 18 95 Intake and Output 05/27/18 05/28/18 05/28/18 23:59 07:59 15:59 Intake Total 278.9 / 278.9 240 / 240 Output Total 800 / 800 300 / 300 Balance -789 / -789 -21.1 / -21.1 240 / 240 Intake: IV Fluids 278.9 / 278.9 Cardizem 50 MG In 0.9 % Sodium 28.9 / 28.9 Chloride 40 ML @ 5 MG/HR 5 mls/ hr IVC .Q10H [facility] Rx#:[id number] Vancocin 1,000 MG In 0.9 % 250 / 250 Sodium Chloride 250 ML @ 167 mls/hr IVPB Q24H [facility] Rx#: [id number] Oral 0 / 0 0 / 0 240 / 240 Output: Catheter 800 / 800 300 / 300 Other: Meal Lunch Percent of Meal Consumed 10% Stool Size Large Stool Consistency loose formed Stool Color Brown Black # Bowel Movements 1 Weight 90.4 kg Blood Glucose* 253 327 438 Patient Weight 05/28/18 23:59 Weight 90.4 kg General: Conversant, No Apparent Distress HEENT: Atraumatic, Normocephaly, Mucus Membranes Moist Neck: No JVD, Normal carotid pulses Cardiac: Other (irregularly irregular) Lungs: Other (diminished) Neuro: Alert and responsive, No focal deficits noted Abdomen: Soft, Non-Tender Skin: No rashes noted on visualized skin Musculoskeletal: No Chest Wall Tenderness Extremities: No Clubbing, No Cyanosis, No Edema, Normal Pulses Results 05/28/18 08:28 05/28/18 08:28 Lab Results 05/28/18 05/28/18 08:28 08:28 WBC 9.3 Hgb 9.1 L Hct 30.2 L Plt Count 212 Sodium 135 L Potassium 4.3 Chloride 98 Carbon Dioxide 32 H BUN 35 H Creatinine 1.63 H Glucose 351 H Calcium 8.6 Short CBC 05/28/18 Range/Units 08:28 WBC 9.3 (4.3-11.1) K/mcL Hgb 9.1 L (11.5-15.4) g/dL Hct 30.2 L (35.3-44.9) % Plt Count 212 (140-400) K/mcL Neutrophils # 7.0 (1.6-8.9) K/mcL BMP 05/28/18 Range/Units 08:28 Sodium 135 L (136-145) mEq/L Potassium 4.3 (3.5-5.1) mEq/L Chloride 98 (98-107) mEq/L Carbon Dioxide 32 H (23-29) mEq/L BUN 35 H (8-23) mg/dL Creatinine 1.63 H (0.60-1.20) mg/dL Glucose 351 H (70-105) mg/dL Calcium 8.6 (8.6-10.3) mg/dL Active Medications Acetaminophen (Tylenol) 650 mg PO Q6HR PRN PRN Reason: Mild Pain/Fever Stop: 11/24/18 01:39 Last Admin: 05/25/18 22:37 Dose: 650 mg Albuterol Sulfate (Albuterol Inhaler) 2 puff IH Q2H PRN PRN Reason: Shortness Of Breath/Wheezing Stop: 11/24/18 04:01 Albuterol/Ipratropium (Duoneb) 3 ml IH [id number] [facility] Stop: 11/24/18 10:01 Last Admin: 05/28/18 11:10 Dose: 3 ml Alprazolam (Xanax) 0.5 mg PO BID PRN; Protocol PRN Reason: Anxiety Stop: 11/26/18 14:47 Last Admin: 05/27/18 15:06 Dose: 0.5 mg Apixaban (Eliquis) 5 mg PO BID [facility] Stop: 11/27/18 21:01 Aspirin (Aspirin Ec) 81 mg PO DAILY [facility] Stop: 11/24/18 09:01 Last Admin: 05/28/18 08:33 Dose: 81 mg Atorvastatin Calcium (Lipitor) 20 mg PO QPM [facility] Stop: 11/24/18 18:01 Last Admin: 05/27/18 18:28 Dose: 20 mg Carvedilol (Coreg) 25 mg PO BIDWM [facility] PRN Reason: Protocol Stop: 11/24/18 08:01 Last Admin: 05/28/18 08:34 Dose: 25 mg Clonidine HCl (Clonidine Hcl) 0.1 mg PO TID [facility] Stop: 11/24/18 15:01 Last Admin: 05/28/18 08:33 Dose: 0.1 mg Dextrose/Water (Dextrose 50% (Syg)) 25 ml IVP AD PRN PRN Reason: Hypoglycemia Stop: 11/24/18 07:24 Diltiazem HCl (Cardizem Cd) 240 mg PO DAILY [facility] Stop: 11/28/18 09:01 Furosemide (Lasix) 20 mg IVP DAILY [facility] Stop: 11/24/18 09:01 Last Admin: 05/28/18 12:57 Dose: 20 mg Gabapentin (Neurontin) 100 mg PO BID [facility] Stop: 11/24/18 09:01 Last Admin: 05/28/18 08:33 Dose: 100 mg Glucagon (Glucagen) 1 mg IM ONCE PRN PRN Reason: Hypoglycemia Stop: 11/24/18 07:24 Glucose (Gluctose) 15 gm PO ONCE PRN PRN Reason: Hypoglycemia Stop: 11/24/18 07:24 Glucose (Gluctose) 30 gm PO ONCE PRN PRN Reason: Hypoglycemia Stop: 11/24/18 07:24 Dextrose (Dextrose 5%) 1,000 mls @ 100 mls/hr IVC .Q10H PRN PRN Reason: HYPOGLYCEMIA Stop: 11/24/18 07:24 Cefepime HCl 2,000 mg/ Sterile (Water) 20 mls @ 300 mls/hr IVP Q24H [facility] Stop: 11/24/18 13:01 Last Admin: 05/27/18 13:57 Dose: 300 mls/hr Vancomycin HCl 1,000 mg/ (Sodium Chloride) 250 mls @ 167 mls/hr IVPB Q24H [facility] PRN Reason: Protocol Stop: 05/28/18 22:00 Last Infusion: 05/28/18 01:00 Dose: Infused Insulin Detemir (Levemir) 10 unit SQ DAILY [facility] Stop: 11/27/18 12:16 Insulin Human Lispro (Humalog) 0 units SQ HS [facility] PRN Reason: Protocol Stop: 11/24/18 21:01 Last Admin: 05/27/18 23:05 Dose: 3 units Insulin Human Lispro (Humalog) 0 units SQ TIDAC [facility] PRN Reason: Protocol Stop: 11/24/18 07:31 Last Admin: 05/28/18 12:56 Dose: 20 units Naloxone HCl (Narcan) 0.4 mg IVP Q2MIN PRN PRN Reason: SEE COMMENTS Stop: 11/24/18 01:51 Nystatin (Nystop) 1 appl TP BID [facility] Stop: 11/24/18 09:01 Last Admin: 05/28/18 13:11 Dose: 1 appl Ondansetron HCl (Zofran) 4 mg IVP Q6HR PRN; Protocol PRN Reason: Nausea Stop: 11/24/18 02:21 Last Admin: 05/27/18 14:06 Dose: 4 mg - Imaging and Cardiology Echo: report reviewed - EKG Interpretation EKG results cardiology: personally reviewed (A-Flutter RVR rate 104), other (12 hr tele AVG HR 91, A-Flutter 11 beat run NSVT) Consult Discharge Plan - Plan Referrals: Geremias Ryan DO [Primary Care Provider] -
[2018-05-28] MEDS ORDERED: Aminoglycoside Consult 1 EACH MC ONE (15:00)
[2018-05-28] MEDS: Cefepime HCl 2,000 MG in Water for inj. (sterile) 20 ML 20 ML IVP SCH (16:01)
[2018-05-28] MEDS ORDERED: Levalbuterol Neb 1.25 MG/3 ML ONE (21:54)
[2018-05-28] MEDS: Levalbuterol Neb 1.25 MG/3 ML IH SCH (21:59)
[2018-05-29] MEDS: Levalbuterol Neb 1.25 MG/3 ML IH SCH ×4 (04:34→22:18)
[2018-05-29] MEDS: cloNIDine HCl 0.1 MG TABLET PO SCH ×3 (07:55→21:06)
[2018-05-29] MEDS: Aspirin Enteric Coated 81 MG Tablet PO SCH (07:55)
[2018-05-29] MEDS: Apixaban 5 MG TABLET PO SCH (07:55)
[2018-05-29] MEDS: Gabapentin 100 MG CAPSULE PO SCH ×2 (07:55→21:06)
[2018-05-29] MEDS: Furosemide 20 MG/2 ML VIAL IVP SCH (07:55)
[2018-05-29] MEDS: Diltiazem CD (24hr) 120 MG CAPSULE PO SCH (07:55)
[2018-05-29] MEDS: Nystatin POWDER 30 GM BOTTLE TP SCH ×2 (07:56→21:08)
[2018-05-29] MEDS: Insulin LISPRO 300 UNITS/3 ML VIAL SQ SCH ×4 (08:01→21:10)
[2018-05-29 08:25] LABS: Calcium 8.8 mg/dL (8.6-10.3); Magnesium 1.9 mg/dL (1.6-2.6); Potassium 4.5 mEq/L (3.5-5.1)
[2018-05-29 08:41] LABS: Hematocrit 30.6 % (35.3-44.9); Hemoglobin 9.7 g/dL (11.5-15.4); Mean Corpuscular HGB Conc 31.7 g/dL (31.6-35.5); Mean Corpuscular Hemoglobin 27.7 pg (28.0-33.3); Mean Corpuscular Volume 87.4 fL (83.0-100.0); Mean Platelet Volume 11.6 fL (9.4-12.4); Platelet Count 250 K/mcL (140-400); Red Cell Distribution Width 15.6 % (11.5-14.5)
--- NOTE | 2018-05-29 09:41 | Event Note ---
Date of Encounter: 05/29/18 Time of Encounter: 09:37 - Cardiology Event Note Pt is rate controlled A-Flutter s/p increase in PO Cardizem yesterday. 12 hr tele AVG HR 64, A-Flutter. Currently on Coreg 25mg BID and Cardizem CD 240mg daily. Eliquis recently on hold due to surgery with post op anemia requiring multiple transfusions. Eliquis was restarted by primary team. Monitor H&H closely given recent surgery/bleeding, currently stable. If significant decrease if H&H, okay to hold. Cardiology signing off. Reconsult PRN. Will coordinate outpt follow-up in 2-3 weeks.
[2018-05-29] MEDS: Insulin DETEMIR 100 UNIT/ML X5UNITS SQ SCH ×2 (09:44→21:06)
--- NOTE | 2018-05-29 13:18 | Internal Med Progress Note ---
Hospitalist Progress Note - Encounter Date of Encounter: 05/29/18 Time of Encounter: 13:15 - Subjective Interval History: Patient seen and evaluated at bedside, she report doing ok, but states that she does not feel that she is closed to her baseline breathing patel, reports that she feels short of breath. Denies chest pain, but reports still having a productive cough. - Exam Vitals: Temp Pulse Resp BP Pulse Ox 98.3 F 67 16 177/65 96 05/29/18 12:28 05/29/18 12:28 05/29/18 12:28 05/29/18 12:28 05/29/18 12:28 Exam: General: Alert and oriented x4. In no distress Cardiovascular: Irregularly irregular, Normal S1 & S2, no rubs, murmurs or gallops. Lungs: bilateral scattered rales and wheezing on auscultation, no crackles. Abdomen:Obese, Soft, non-tender, no rigidity. NABS in all 4 quadrant. Surgical clips on the ant abdomen. Extremities: No deformity, no edema or tenderness, no joint swelling or clubbing. Neurological:Normal cognition and motor skills. Rest of the physical exam is non contributory - Assessment and Plan (1) HCAP (healthcare-associated pneumonia) Current Visit: Yes Status: Acute Assessment and Plan: Patient being treated empirically for pneumonia. We will de-escalate on antibiotic discontinue vancomycin, and discontinue cefepime. Start levofloxacin 750 mg by mouth every 48 hours for 2 more days. B/C no growth, pending final report Sputum culture: normal grayson. (2) Diabetes mellitus Current Visit: No Status: Chronic Assessment and Plan: Blood sugar sub-optimally controlled. Plan Increase levemir to 10 units BID Continue with Lispro 5 units AC, plus sliding scale AC Carb controlled diet. (3) Coronary artery disease Current Visit: No Status: Chronic Assessment and Plan: Patient on Aspirin plus atorvastatin. (4) DVT prophylaxis Current Visit: No Status: Acute Assessment and Plan: Patient was being anticoagulated with Eliquis due to A.flutter. Will discontinue anticoagulation due to patient recent history of GI bleed requiring multiple blood transfusion. Anticoagulation to be resume in the outpatient setting per cardiology recommendations. Will place patient on Heparin 5000 units BID SubQ. (5) CKD (chronic kidney disease) stage 3, GFR 30-59 ml/min Current Visit: No Status: Chronic Assessment and Plan: Kidney function is back to baseline. Adjust medications for GFR of <35. Avoid nephrotoxic medications. f/o with nephrology as outpatient. (6) HTN (hypertension) Current Visit: No Status: Chronic Assessment and Plan: BP suboptimally controlled. Plan increase clonidine to 0.3mg/PO TID Continue carvedilol or and Cardizem. will continue monitoring vital signs for medication adjustment if needed. (7) PAF (paroxysmal atrial fibrillation) Current Visit: No Status: Acute Assessment and Plan: Rate controlled in the 60s for the past 24-48 hours. Plan Cardiology consulted and recommended to continue the patient on carvedilol and Cardizem. Patient was being anticoagulated with Eliquis due to A.flutter and High CHADSVASC score. Will discontinue anticoagulation due to patient recent history of GI bleed requiring multiple blood transfusion. Anticoagulation to be resume in the outpatient setting per cardiology recommendations. (8) Sepsis Current Visit: Yes Status: Resolved Assessment and Plan: No signs of active infection. (9) Diastolic CHF Current Visit: No Status: Chronic Assessment and Plan: Not in acute exacerbation. 4 liters balance Negative. Continue furosemide 20 mg IV daily. Daily weight, strict intake and output. 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 Also patient has a small amount of purulent drainage at one of the arnold sites. (11) UTI (urinary tract infection) Current Visit: Yes Status: Acute Assessment and Plan: Urine culture no growth. Patient on levofloxacin. (12) COPD (chronic obstructive pulmonary disease) Current Visit: Yes Status: Acute Assessment and Plan: Bilateral scattered rales and expiratory/inspiratory wheezing. Plan: Continue Nebs with Levalterol PRN Will start patient on Solu-Medrol 40mg/IV Q12HRs. Incetive spirometry being covered with empiric antibiotics. ON Levofloxacin (13) Chronic respiratory failure Current Visit: Yes Status: Acute Assessment and Plan: On 2 litters of O2 by nasal cannula. Continue O2, titrate for O2Sat >92% - Summary of Assessment and Plan Summary of Assessment and Plan: Patient to remain Hospitalized for 24 more hours for better blood pressure, glycemic control, plus optimization of her breathing. Potential discharge tomorrow. - Time Spent with Patient Total time spent is greater than 50% in coordination of care (as documented) at patient's floor/unit and/or counseling patient: 25 - 35 minutes Plan of Care Discussed with: patient (the nurse.) Internal Medicine: Result - Labs CBC & Chem 7: 05/29/18 07:54 05/29/18 07:54 Labs: Short CBC 05/29/18 Range/Units 07:54 WBC 11.9 H (4.3-11.1) K/mcL Hgb 9.7 L (11.5-15.4) g/dL Hct 30.6 L (35.3-44.9) % Plt Count 250 (140-400) K/mcL BMP 05/29/18 07:54 Sodium 135 L Potassium 4.5 Chloride 98 Carbon Dioxide 32 H BUN 36 H Creatinine 1.58 H Glucose 256 H Calcium 8.8 Consult Discharge Plan - Plan Referrals: Geremias Ryan DO [Primary Care Provider] - (2) Diabetes mellitus Qualifiers: Diabetes mellitus type: type 2 Diabetes mellitus custodial insulin use: with terminal system operator use Diabetes mellitus complication status: with hyperglycemia Qualified Code(s): E11.65 - Type 2 diabetes mellitus with hyperglycemia; Z79.4 - skilled nursing (current) use of insulin (3) Coronary artery disease Qualifiers: Coronary Disease-Associated Artery/Lesion type: bypass graft [place] vs. transplanted heart: [place] heart Associated angina: without angina Qualified Code(s): I25.810 - Atherosclerosis of coronary artery bypass graft(s) without angina pectoris (6) HTN (hypertension) Qualifiers: Hypertension type: essential hypertension Qualified Code(s): I10 - Essential (primary) hypertension (8) Sepsis Qualifiers: Sepsis type: sepsis due to unspecified organism Qualified Code(s): A41.9 - Sepsis, unspecified organism (9) Diastolic CHF Qualifiers: Heart failure chronicity: chronic Qualified Code(s): I50.32 - Chronic diastolic (congestive) heart failure (11) UTI (urinary tract infection) Qualifiers: Urinary tract infection type: site unspecified Hematuria presence: without hematuria Qualified Code(s): N39.0 - Urinary tract infection, site not specified (12) COPD (chronic obstructive pulmonary disease) Qualifiers: COPD type: unspecified COPD Qualified Code(s): J44.9 - Chronic obstructive pulmonary disease, unspecified (13) Chronic respiratory failure Qualifiers: Respiratory failure complication: hypoxia and hypercapnia Qualified Code(s): J96.11 - Chronic respiratory failure with hypoxia; J96.12 - Chronic respiratory failure with hypercapnia
[2018-05-29] MEDS: ALPRAZolam 0.5 MG TABLET PO PRN ×2 (14:02→21:24)
--- NOTE | 2018-05-29 16:50 | Event Note ---
Date of Encounter: 05/29/18 Time of Encounter: 16:49 Patient admitted for pneumonia, sepsis, a fitted/a flutter. Surgery was consultrd for recommendations regarding staple removal. She is status post robotic splenic flexure take down, transverse colectomy, lysis of adhesions, small bowel resection, exploratory laparotomy, robotic wedge liver resection on 05/09/[address] Hester. No formal consult is necessary as she has no abdominal complaints. OK for bedside RN to arnold and place steri-strips. Reviewed with bedside RN Jeison who states he will remove arnold. Pt can follow-up with surgery as outpatient in 2 weeks (as she has not followed up from her procedure). - Patient Status Disposition: Still a Patient Condition: Fair - Discharge Instructions Follow Up With: Geremias Ryan DO [Primary Care Provider] - Sabina Hester CNP [Advanced Practice Nurse] - (2 weeks after d/c)
[2018-05-29] MEDS: MethylPREDNISolone 40 MG/ML VIAL IVP SCH (17:13)
[2018-05-29] MEDS: levoFLOXacin 750 MG TABLET PO SCH (17:13)
[2018-05-29] MEDS: *HR* Heparin 5,000 UNIT/ML VIAL SQ SCH (17:14)
[2018-05-30] MEDS: Levalbuterol Neb 1.25 MG/3 ML IH SCH ×4 (03:48→22:43)
[2018-05-30] MEDS: MethylPREDNISolone 40 MG/ML VIAL IVP SCH ×2 (06:06→16:10)
[2018-05-30] MEDS: *HR* Heparin 5,000 UNIT/ML VIAL SQ SCH ×2 (06:06→16:09)
[2018-05-30 07:09] LABS: Basophils % 0.2 %; Hematocrit 31.9 % (35.3-44.9); Hemoglobin 9.4 g/dL (11.5-15.4); Immature Granulocytes % 0.8 % (0-4); Lymphocytes # 0.4 K/mcL (0.6-4.6); Mean Corpuscular HGB Conc 29.5 g/dL (31.6-35.5); Mean Corpuscular Hemoglobin 26.3 pg (28.0-33.3); Mean Corpuscular Volume 89.4 fL (83.0-100.0); Mean Platelet Volume 12.1 fL (9.4-12.4); Monocytes # 0.2 K/mcL (0.0-1.3); Monocytes % 1.5 %; Neutrophils # 10.2 K/mcL (1.6-8.9); Platelet Count 232 K/mcL (140-400); Red Blood Count 3.57 M/mcL (3.82-4.97); Red Cell Distribution Width 15.2 % (11.5-14.5); Segmented Neutrophils % 93.5 %
[2018-05-30 07:29] LABS: Phosphorous 2.9 mg/dL (2.7-4.5); Potassium 5.5 mEq/L (3.5-5.1)
[2018-05-30] MEDS: Diltiazem CD (24hr) 120 MG CAPSULE PO SCH (07:58)
[2018-05-30] MEDS: Furosemide 20 MG/2 ML VIAL IVP SCH (07:58)
[2018-05-30] MEDS: cloNIDine HCl 0.1 MG TABLET PO SCH ×3 (07:58→20:29)
[2018-05-30] MEDS: Aspirin Enteric Coated 81 MG Tablet PO SCH (07:58)
[2018-05-30] MEDS: Gabapentin 100 MG CAPSULE PO SCH ×2 (07:58→20:30)
[2018-05-30] MEDS: Insulin DETEMIR 100 UNIT/ML X5UNITS SQ SCH ×2 (07:59→11:35)
[2018-05-30] MEDS: Insulin LISPRO 300 UNITS/3 ML VIAL SQ SCH ×4 (07:59→20:30)
[2018-05-30] MEDS: Nystatin POWDER 30 GM BOTTLE TP SCH ×2 (08:00→21:00)
[2018-05-30] MEDS ORDERED: *HR* Labetalol 20 MG/4 ML SYRINGE IVP ONE (11:25)
[2018-05-30] MEDS ORDERED: Insulin LISPRO 300 UNITS/3 ML VIAL SQ ONE ×2 (11:25→15:37)
[2018-05-30] MEDS: ALPRAZolam 0.5 MG TABLET PO PRN (11:34)
--- NOTE | 2018-05-30 12:10 | Internal Med Progress Note ---
Hospitalist Progress Note - Encounter Date of Encounter: 05/30/18 Time of Encounter: 12:06 - Subjective Interval History: Seen and evaluated at bedside, she reports not feeling well today but cannot verbalized exactly what is happening. Denied chest pain, but reports that she is feeling short of breath. Report a nono-productive cough that has been bothering her. Denies nausea/vomiting or abdominal pain. - Exam Vitals: Temp Pulse Resp BP Pulse Ox 98.2 F 125 18 181/95 95 05/30/18 11:26 05/30/18 11:26 05/30/18 11:26 05/30/18 11:26 05/30/18 11:26 Exam: General: Alert and oriented x4. In no distress Cardiovascular: Irregularly irregular, Normal S1 & S2, no rubs, murmurs or gallops. Lungs: bilateral scattered expiratory wheezing and rales on auscultation, no crackles. Abdomen: Obese, Soft, non-tender, no rigidity. NABS in all 4 quadrant. Extremities: 2+ pitting edema in the lower extremities. Neurological: Normal cognition. CN II-XII intact. Rest of the physical exam is non contributory - Assessment and Plan (1) COPD (chronic obstructive pulmonary disease) Current Visit: Yes Status: Acute Assessment and Plan: Scattered bilateral expiratory wheezing. Plan Increase Solu-Medrol to 40mg/IV TID Continue Levalbuterol Nebs as scheduled will start Acetylcysteine Nbes scheduled f/u ABG Will place patient on BiPap for at least 2 hours Plus nocturnal Bipap Incentive spirometry Being empirically covered with IV antibioitcs (2) Chronic respiratory failure Current Visit: Yes Status: Acute Assessment and Plan: Plan of care as above. (3) HCAP (healthcare-associated pneumonia) Current Visit: Yes Status: Acute Assessment and Plan: B/C no growth, Sputum culture: No growth. Urine for Atypical: negative Plan of care as per #1 problem. (4) Diabetes mellitus Current Visit: No Status: Chronic Assessment and Plan: Blood sugar sub-optimally controlled. Increase levemir to 25 units/BID, continue with Lispro sliding scale AC. Carb controlled diet. (5) Coronary artery disease Current Visit: No Status: Chronic Assessment and Plan: Patient on Aspirin and Atorvastatin. (6) DVT prophylaxis Current Visit: No Status: Acute Assessment and Plan: ON Heparin 5000 units for DVT prophylaxis. (7) CKD (chronic kidney disease) stage 3, GFR 30-59 ml/min Current Visit: No Status: Chronic Assessment and Plan: Kidney function at baseline. Avoid nephrotoxic medications. (8) HTN (hypertension) Current Visit: No Status: Chronic Assessment and Plan: BP sub-optimally controlled. Patient on Carvedilol, Clonidine 0.3mg/PO TID, diltiazem and furosemide. Will add low dose hydralazine 25mg/PO BID. (9) PAF (paroxysmal atrial fibrillation) Current Visit: No Status: Acute Assessment and Plan: Rate not controlled over the past 24 hours, ranging from 100-115. Possible secondary as patient has been requiring Nebs. Will continue to monitor, on cardizem and Carvedilol. 12 lead ekg has been ordered. Might need to be on a drip for rate control. (10) Diastolic CHF Current Visit: No Status: Chronic Assessment and Plan: No on acute exacerbation. 5 litters balance negative during this admission. Continue gentle diuresis with furosemide 20mg/IV daily. Daily weight, fluid restriction to 1.5 litters a day. 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 Patient on Levofloxacin. (13) Hyperkalemia Current Visit: Yes Status: Acute Assessment and Plan: As patient has been receiving Insulin and Nebs treatment. Will repeat 12 lead EKG plus repeat BMP. - Summary of Assessment and Plan Summary of Assessment and Plan: Patient to remain in the hospital. Still bronchospastic, in mild respiratory distress. - Time Spent with Patient Total time spent is greater than 50% in coordination of care (as documented) at patient's floor/unit and/or counseling patient: Greater than 35 minutes Plan of Care Discussed with: patient (family and nurse.) Internal Medicine: Result - Labs CBC & Chem 7: 05/30/18 04:00 05/30/18 04:00 Labs: Short CBC 05/30/18 Range/Units 04:00 WBC 10.9 (4.3-11.1) K/mcL Hgb 9.4 L (11.5-15.4) g/dL Hct 31.9 L (35.3-44.9) % Plt Count 232 (140-400) K/mcL Neutrophils # 10.2 H (1.6-8.9) K/mcL BMP 05/30/18 04:00 Sodium 132 L Potassium 5.5 H Chloride 96 L Carbon Dioxide 30 H BUN 40 H Creatinine 1.53 H Glucose 439 H Calcium 9.0 Consult Discharge Plan - Plan Referrals: Sabina Hester CNP [Advanced Practice Nurse] - (2 weeks after d/c) Geremias Ryan DO [Primary Care Provider] - (1) COPD (chronic obstructive pulmonary disease) Qualifiers: COPD type: unspecified COPD Qualified Code(s): J44.9 - Chronic obstructive pulmonary disease, unspecified (2) Chronic respiratory failure Qualifiers: Respiratory failure complication: hypoxia and hypercapnia Qualified Code(s): J96.11 - Chronic respiratory failure with hypoxia; J96.12 - Chronic respiratory failure with hypercapnia (4) Diabetes mellitus Qualifiers: Diabetes mellitus type: type 2 Diabetes mellitus bed bug exterminator insulin use: with bed bug exterminator use Diabetes mellitus complication status: with hyperglycemia Qualified Code(s): E11.65 - Type 2 diabetes mellitus with hyperglycemia; Z79.4 - [facility] (current) use of insulin (5) Coronary artery disease Qualifiers: Coronary Disease-Associated Artery/Lesion type: bypass graft [place] vs. transplanted heart: [place] heart Associated angina: without angina Qualified Code(s): I25.810 - Atherosclerosis of coronary artery bypass graft(s) without angina pectoris (8) HTN (hypertension) Qualifiers: Hypertension type: essential hypertension Qualified Code(s): I10 - Essential (primary) hypertension (10) Diastolic CHF Qualifiers: Heart failure chronicity: chronic Qualified Code(s): I50.32 - Chronic diastolic (congestive) heart failure (12) UTI (urinary tract infection) Qualifiers: Urinary tract infection type: site unspecified Hematuria presence: without hematuria Qualified Code(s): N39.0 - Urinary tract infection, site not specified
[2018-05-30 13:04] LABS: ABG Base Excess 8 mEq/L (-2 to 3); ABG HCO3 32 mEq/L (21-27); ABG Oxygen Saturation 92 % (95-98); ABG PCO2 44 mmHg (35-45); ABG PH 7.47 pH Units (7.32-7.45); ABG PO2 59 mmHg (85-104); ABG TCO2 33 mEq/L (20-26)
[2018-05-30] MEDS: Acetylcysteine 10% 2 ML INHSOL IH SCH ×4 (15:31→22:43)
[2018-05-30] MEDS: hydrALAZINE 25 MG TABLET PO SCH (16:10)
[2018-05-30] MEDS ORDERED: Insulin DETEMIR 100 UNIT/ML X5UNITS SQ SCH ×2 (21:00)
[2018-05-31] MEDS: hydrALAZINE 25 MG TABLET PO SCH ×3 (00:11→14:53)
[2018-05-31] MEDS: MethylPREDNISolone 40 MG/ML VIAL IVP SCH ×2 (00:12→08:32)
[2018-05-31] MEDS: Acetylcysteine 10% 2 ML INHSOL IH SCH ×4 (03:09→21:14)
[2018-05-31] MEDS: Levalbuterol Neb 1.25 MG/3 ML IH SCH ×4 (03:09→21:14)
[2018-05-31 03:56] LABS: Basophils % 0.1 %; Hematocrit 29.7 % (35.3-44.9); Hemoglobin 9.1 g/dL (11.5-15.4); Immature Granulocytes % 0.8 % (0-4); Lymphocytes # 0.5 K/mcL (0.6-4.6); Mean Corpuscular HGB Conc 30.6 g/dL (31.6-35.5); Mean Corpuscular Hemoglobin 26.8 pg (28.0-33.3); Mean Corpuscular Volume 87.4 fL (83.0-100.0); Mean Platelet Volume 11.7 fL (9.4-12.4); Monocytes # 0.6 K/mcL (0.0-1.3); Monocytes % 3.8 %; Neutrophils # 14.2 K/mcL (1.6-8.9); Platelet Count 210 K/mcL (140-400); Red Cell Distribution Width 15.9 % (11.5-14.5); Segmented Neutrophils % 92.3 %
[2018-05-31 04:05] LABS: Calcium 9.3 mg/dL (8.6-10.3); Magnesium 2.1 mg/dL (1.6-2.6); Phosphorous 2.8 mg/dL (2.7-4.5)
[2018-05-31] MEDS: *HR* Heparin 5,000 UNIT/ML VIAL SQ SCH ×2 (06:18→16:18)
[2018-05-31] MEDS: Furosemide 20 MG/2 ML VIAL IVP SCH (08:31)
[2018-05-31] MEDS: Insulin DETEMIR 100 UNIT/ML X5UNITS SQ SCH ×2 (08:31→21:37)
[2018-05-31] MEDS: Insulin LISPRO 300 UNITS/3 ML VIAL SQ SCH ×4 (08:31→23:21)
[2018-05-31] MEDS: Aspirin Enteric Coated 81 MG Tablet PO SCH (08:32)
[2018-05-31] MEDS: Nystatin POWDER 30 GM BOTTLE TP SCH ×2 (08:32→23:30)
[2018-05-31] MEDS: cloNIDine HCl 0.1 MG TABLET PO SCH ×3 (08:32→21:31)
[2018-05-31] MEDS: Diltiazem CD (24hr) 120 MG CAPSULE PO SCH (08:32)
[2018-05-31] MEDS: Gabapentin 100 MG CAPSULE PO SCH ×2 (08:32→21:30)
--- NOTE | 2018-05-31 11:32 | Internal Med Progress Note ---
Hospitalist Progress Note - Encounter Date of Encounter: 05/31/18 Time of Encounter: 11:27 - Subjective Interval History: Patient evaluated at bedside, she reports that she is feeling better today, her breathing has improved when compared with yesterday and the previous days. Denies shortness of breath today, no chest pain, nausea or vomiting. - Exam Vitals: Temp Pulse Resp BP Pulse Ox 98.1 F 72 19 151/57 96 05/31/18 07:56 05/31/18 07:56 05/31/18 07:56 05/31/18 07:56 05/31/18 07:56 Exam: General: Alert and oriented x4. In no distress Cardiovascular: Irregularly irregular, Normal S1 & S2, no rubs, murmurs or gallops. Lungs: still has bilateral scattered expiratory wheezing and rales on auscultation, minimal crackles at the bases b/l. Abdomen: Obese, Soft, non-tender, no rigidity. NABS in all 4 quadrant. Extremities: 2+ pitting edema in the lower extremities. Neurological: Normal cognition. CN II-XII intact. Rest of the physical exam is non contributory - Assessment and Plan (1) COPD (chronic obstructive pulmonary disease) Current Visit: Yes Status: Acute Assessment and Plan: Patient still has scattered expiratory wheezing b/l. Plan Will decrease solu-Medro dose to 40mg/PO daily Levalbuterol Nebs Q4RT scheduled continue Albuterol Inhaler scheduled On levofloxacin empirically Incetive spirometry Chest PT b/l Nocturnal BIpap titrate for O2 Sat >92% (2) Chronic respiratory failure Current Visit: Yes Status: Acute Assessment and Plan: Plan of care as per #1. (3) HCAP (healthcare-associated pneumonia) Current Visit: Yes Status: Acute Assessment and Plan: B/C no growth, Sputum culture: No growth. Urine for Atypical: negative Plan of care as per #1 problem. (4) Diabetes mellitus Current Visit: No Status: Chronic Assessment and Plan: Blood sugar has been sub-Optimally controlled as patient was started on high dose steroid. IV steroids has been decreased to 40mg/IV daily. Levemir increased to 30 units BID, Sliding scale increased to high dose. Carb controlled diet. Will continue to monitor and adjust as needed. (5) Coronary artery disease Current Visit: No Status: Chronic Assessment and Plan: Continue aspirin and atorvastatin. (6) CKD (chronic kidney disease) stage 3, GFR 30-59 ml/min Current Visit: No Status: Chronic Assessment and Plan: Kidney function stable. Avoid nephrotoxic medications. Adjust medications for a GFR <30% (7) HTN (hypertension) Current Visit: No Status: Chronic Assessment and Plan: BP well controlled. Patient on clinidine 0.3mg PO TID, hydralazine 25mg/PO TID and carvedilol and diltiazem. (8) PAF (paroxysmal atrial fibrillation) Current Visit: No Status: Acute Assessment and Plan: Rate controlled on Carvedilol and Diltiazem. Full dose Anticoagulation has been held due to recent surgery. Anemia requiring multiple blood transfusions. (9) Diastolic CHF Current Visit: No Status: Chronic Assessment and Plan: Port chest x-ray: The patient is status post median sternotomy. The right chest port is stable. The cardiomediastinal silhouette is stable. There are low lung volumes. There is mild pulmonary vascular congestion. There is no evidence of pleural effusion. There is no evidence of pneumothorax. There is no acute osseous abnormality. IMPRESSION: Mild pulmonary vascular congestion. Low lung volumes. Stable cardiomegaly Plan Continue fluids restriction to 1.5 litters a day daily weights Increase furosemide to 20mg/IV BID total balance negative of 5 litters but still sounds congested. 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 Continue levofloxacin for at least 2 more days. (12) Leukocytosis Current Visit: Yes Status: Acute Assessment and Plan: possible secondary to recent high dose steroids. (13) DVT prophylaxis Current Visit: No Status: Acute Assessment and Plan: On heparin 5000 units SubQ Q12HR - Summary of Assessment and Plan Summary of Assessment and Plan: Patient to remain in the hospital due resp distress, volume overload. Needs IV diuresis plus scheduled nebs. - Time Spent with Patient Total time spent is greater than 50% in coordination of care (as documented) at patient's floor/unit and/or counseling patient: Greater than 35 minutes Plan of Care Discussed with: patient (the nurse.) Internal Medicine: Result - Labs CBC & Chem 7: 05/31/18 03:30 05/31/18 03:30 Labs: Short CBC 05/31/18 Range/Units 03:30 WBC 15.4 H (4.3-11.1) K/mcL Hgb 9.1 L (11.5-15.4) g/dL Hct 29.7 L (35.3-44.9) % Plt Count 210 (140-400) K/mcL Neutrophils # 14.2 H (1.6-8.9) K/mcL BMP 05/31/18 03:30 Sodium 134 L Potassium 5.0 Chloride 97 L Carbon Dioxide 28 BUN 42 H Creatinine 1.53 H Glucose 250 H Calcium 9.3 - ABG Interpretation ABG results: ABG ABG pH 7.47 pH Units (7.32-7.45) H 05/30/18 13:01 ABG pCO2 44 mmHg (35-45) 05/30/18 13:01 ABG pO2 59 mmHg (85-104) L 05/30/18 13:01 ABG O2 Saturation 92 % (95-98) L 05/30/18 13:01 - Impressions Impressions Chest X-Ray 05/30/18 11:40 IMPRESSION: Mild pulmonary vascular congestion. Low lung volumes. Stable cardiomegaly. D/ / Krystian Merchant MD / Krystian Merchant MD Interpreting Provider: Krystian Merchant MD Consult Discharge Plan - Plan Referrals: Sabina Hester, DEPUTY INSURANCE COMMISSIONER [Advanced Practice Nurse] - (2 weeks after d/c) Geremias Ryan DO [Primary Care Provider] - (1) COPD (chronic obstructive pulmonary disease) Qualifiers: COPD type: unspecified COPD Qualified Code(s): J44.9 - Chronic obstructive pulmonary disease, unspecified (2) Chronic respiratory failure Qualifiers: Respiratory failure complication: hypoxia and hypercapnia Qualified Code(s): J96.11 - Chronic respiratory failure with hypoxia; J96.12 - Chronic respiratory failure with hypercapnia (4) Diabetes mellitus Qualifiers: Diabetes mellitus type: type 2 Diabetes mellitus intermediate insulin use: with middle or intermediate school principal use Diabetes mellitus complication status: with hyperglycemia Qualified Code(s): E11.65 - Type 2 diabetes mellitus with hyperglycemia; Z79.4 - [facility] (current) use of insulin (5) Coronary artery disease Qualifiers: Coronary Disease-Associated Artery/Lesion type: bypass graft [place] vs. transplanted heart: [place] heart Associated angina: without angina Qualified Code(s): I25.810 - Atherosclerosis of coronary artery bypass graft(s) without angina pectoris (7) HTN (hypertension) Qualifiers: Hypertension type: essential hypertension Qualified Code(s): I10 - Essential (primary) hypertension (9) Diastolic CHF Qualifiers: Heart failure chronicity: chronic Qualified Code(s): I50.32 - Chronic diastolic (congestive) heart failure (11) UTI (urinary tract infection) Qualifiers: Urinary tract infection type: site unspecified Hematuria presence: without hematuria Qualified Code(s): N39.0 - Urinary tract infection, site not specified (12) Leukocytosis Qualifiers: Leukocytosis type: unspecified Qualified Code(s): D72.829 - Elevated white blood cell count, unspecified
[2018-05-31] MEDS ORDERED: Insulin LISPRO 300 UNITS/3 ML VIAL SQ ONE ×3 (12:48→17:45)
[2018-05-31] MEDS: levoFLOXacin 750 MG TABLET PO SCH (14:53)
[2018-05-31] MEDS: Furosemide 20 MG TABLET PO SCH (16:18)
[2018-06-01] MEDS: Acetylcysteine 10% 2 ML INHSOL IH SCH ×4 (03:55→22:10)
[2018-06-01] MEDS: Levalbuterol Neb 1.25 MG/3 ML IH SCH ×4 (03:56→22:09)
[2018-06-01] MEDS: *HR* Heparin 5,000 UNIT/ML VIAL SQ SCH ×2 (06:22→17:27)
[2018-06-01] MEDS: hydrALAZINE 25 MG TABLET PO SCH ×3 (08:21→23:04)
[2018-06-01] MEDS: Aspirin Enteric Coated 81 MG Tablet PO SCH (08:21)
[2018-06-01] MEDS: Diltiazem CD (24hr) 120 MG CAPSULE PO SCH (08:21)
[2018-06-01] MEDS: cloNIDine HCl 0.1 MG TABLET PO SCH ×3 (08:21→20:38)
[2018-06-01] MEDS: Furosemide 20 MG TABLET PO SCH (08:22)
[2018-06-01] MEDS: Insulin LISPRO 300 UNITS/3 ML VIAL SQ SCH ×4 (08:22→20:42)
[2018-06-01] MEDS: MethylPREDNISolone 40 MG/ML VIAL IVP SCH (08:22)
[2018-06-01] MEDS: Gabapentin 100 MG CAPSULE PO SCH ×2 (08:22→20:39)
[2018-06-01] MEDS: Nystatin POWDER 30 GM BOTTLE TP SCH ×2 (08:26→21:04)
[2018-06-01] MEDS: Insulin DETEMIR 100 UNIT/ML X5UNITS SQ SCH ×2 (08:26→22:26)
[2018-06-01] MEDS ORDERED: Furosemide 40 MG TABLET PO SCH (09:00)
[2018-06-01] MEDS ORDERED: Insulin DETEMIR 100 UNIT/ML X5UNITS SQ ONE (09:53)
--- NOTE | 2018-06-01 09:58 | Internal Med Progress Note ---
Hospitalist Progress Note - Encounter Date of Encounter: 06/01/18 Time of Encounter: 09:52 - Subjective Interval History: Seen and evaluated at bedside, patient report improvement in her respiratory status, no short of breath. No chest pain, nausea or vomiting. Reports that she feels that she is closed to her baseline. - Exam Vitals: Temp Pulse Resp BP Pulse Ox 98.2 F 77 17 187/83 100 06/01/18 07:38 06/01/18 07:38 06/01/18 07:38 06/01/18 07:38 06/01/18 07:38 Exam: General: Alert and oriented x4. In no distress Cardiovascular: Irregularly irregular, Normal S1 & S2, no rubs, murmurs or gallops. Lungs:minimal bilateral scattered expiratory wheezing and rales on auscultation left lower lobe more than right lung, no crackles. Abdomen: Obese, Soft, non-tender, no rigidity. NABS in all 4 quadrant. Extremities: 2+ pitting edema in the lower extremities. Neurological: Normal cognition. CN II-XII intact. Rest of the physical exam is non contributory - Assessment and Plan (1) COPD (chronic obstructive pulmonary disease) Current Visit: Yes Status: Acute Assessment and Plan: Much more improved when compared with yesterday. Minimal expiratory wheezing at the bases. No rales or crackles. Plan Discontinue SOlu-Medrol Started on Prednisone 10mg/PO daily Continue Levalbuterol Nebds plus Acetylcysteine Nebs scheduled On Albuterol Inhaler PRN Continue incentive spirometry Nocturnal bipap Continue Levofloxacin 750mg/PO Q48HRs for at two more days O2 By nasal cannula, titrate for o2Sat >92%. (2) Chronic respiratory failure Current Visit: Yes Status: Acute Assessment and Plan: Plan of care as above (3) HCAP (healthcare-associated pneumonia) Current Visit: Yes Status: Acute Assessment and Plan: Patient being on PO antibiotics. To continue Levofloxacin for at least 1-2 more days. (4) Diabetes mellitus Current Visit: No Status: Chronic Assessment and Plan: Blood sugar suboptimally controlled. Levemir increased to 40 units/ SUbQ BID, continue Lispro sliding scale high dose. Carb controlled diet. (5) Coronary artery disease Current Visit: No Status: Chronic Assessment and Plan: Continue Aspirin and atorvastatin (6) CKD (chronic kidney disease) stage 3, GFR 30-59 ml/min Current Visit: No Status: Chronic Assessment and Plan: Kidney function stable. Avoid nephrotoxic medications. adjust medications for a GFR of < 40% (7) HTN (hypertension) Current Visit: No Status: Chronic Assessment and Plan: BP sub-optimally controlled. Increase Hydralazine to 50mg/PO TID, continue clonidine 0.3mg/PO TID, on furosemide, carvedilol and Diltiazem. (8) PAF (paroxysmal atrial fibrillation) Current Visit: No Status: Acute Assessment and Plan: Rate controlled. On carvedilol and Cardizem. Anticoagulation on hold due to recent surgery with acute blood lost anemia requiring transfusion. Anticoagulation will be left to strategic account manager discretion. (9) Diastolic CHF Current Visit: No Status: Chronic Assessment and Plan: Total fluid balance negative 5 litters. Continue fluid restriction to 1.5 litters a day daily weight on a beta amos No roberto due to kidney injury (10) Local recurrence of malignant neoplasm of colon Current Visit: No Status: Acute Assessment and Plan: Patient was found to have transverse colon mass on colonoscopy and received a transverse colon resection on 04/26/18 Liver wedge biopsy positive for metastatic adenocarcinoma Outpatient follow up with Hem&Onc (11) UTI (urinary tract infection) Current Visit: Yes Status: Resolved Assessment and Plan: Has completed treatment with IV antibiotics. Asymptomatic. (12) Leukocytosis Current Visit: Yes Status: Acute Assessment and Plan: Most likely due to high dose steroids. DVT Prophylaxis: On heparin 5000 units SubQ BID for DVT prophylaxis - Summary of Assessment and Plan Summary of Assessment and Plan: Patient to remain in the hospital today to continue optimizing respiratory status. Potential discharge tomorrow. Discussed with patient about PT/OT evaluation and potential need to go to rehab. Patient stated that she wants to go home whenever she is ready to be discharged. - Time Spent with Patient Total time spent is greater than 50% in coordination of care (as documented) at patient's floor/unit and/or counseling patient: Greater than 35 minutes Plan of Care Discussed with: patient (the nurse.) Internal Medicine: Result - Labs CBC & Chem 7: 05/31/18 03:30 05/31/18 03:30 - ABG Interpretation ABG results: ABG ABG pH 7.47 pH Units (7.32-7.45) H 05/30/18 13:01 ABG pCO2 44 mmHg (35-45) 05/30/18 13:01 ABG pO2 59 mmHg (85-104) L 05/30/18 13:01 ABG O2 Saturation 92 % (95-98) L 05/30/18 13:01 Consult Discharge Plan - Plan Referrals: Sabina Hester CNP [Advanced Practice Nurse] - (2 weeks after d/c) Geremias Ryan DO [Primary Care Provider] - (1) COPD (chronic obstructive pulmonary disease) Qualifiers: COPD type: unspecified COPD Qualified Code(s): J44.9 - Chronic obstructive pulmonary disease, unspecified (2) Chronic respiratory failure Qualifiers: Respiratory failure complication: hypoxia and hypercapnia Qualified Code(s): J96.11 - Chronic respiratory failure with hypoxia; J96.12 - Chronic respiratory failure with hypercapnia (4) Diabetes mellitus Qualifiers: Diabetes mellitus type: type 2 Diabetes mellitus prison insulin use: with laborer marine terminal use Diabetes mellitus complication status: with hyperglycemia Qualified Code(s): E11.65 - Type 2 diabetes mellitus with hyperglycemia; Z79.4 - ad terminal makeup operator (current) use of insulin (5) Coronary artery disease Qualifiers: Coronary Disease-Associated Artery/Lesion type: bypass graft [place] vs. transplanted heart: [place] heart Associated angina: without angina Qualified Code(s): I25.810 - Atherosclerosis of coronary artery bypass graft(s) without angina pectoris (7) HTN (hypertension) Qualifiers: Hypertension type: essential hypertension Qualified Code(s): I10 - Essential (primary) hypertension (9) Diastolic CHF Qualifiers: Heart failure chronicity: chronic Qualified Code(s): I50.32 - Chronic diastolic (congestive) heart failure (11) UTI (urinary tract infection) Qualifiers: Urinary tract infection type: site unspecified Hematuria presence: without hematuria Qualified Code(s): N39.0 - Urinary tract infection, site not specified (12) Leukocytosis Qualifiers: Leukocytosis type: unspecified Qualified Code(s): D72.829 - Elevated white blood cell count, unspecified
[2018-06-01] MEDS ORDERED: Insulin DETEMIR 100 UNIT/ML X5UNITS SQ SCH (10:00)
[2018-06-01 10:52] LABS: Basophils % 0.1 %; Hemoglobin 9.3 g/dL (11.5-15.4); Immature Granulocytes % 0.8 % (0-4); Lymphocytes # 0.4 K/mcL (0.6-4.6); Lymphocytes % 1.8 %; Mean Corpuscular Volume 87.2 fL (83.0-100.0); Mean Platelet Volume 11.7 fL (9.4-12.4); Monocytes # 1.2 K/mcL (0.0-1.3); Neutrophils # 17.5 K/mcL (1.6-8.9); Platelet Count 245 K/mcL (140-400); Red Blood Count 3.44 M/mcL (3.82-4.97); Red Cell Distribution Width 16.4 % (11.5-14.5); Segmented Neutrophils % 91.3 %
[2018-06-01 11:10] LABS: Phosphorous 3.4 mg/dL (2.7-4.5); Potassium 4.8 mEq/L (3.5-5.1)
[2018-06-02] MEDS: Acetylcysteine 10% 2 ML INHSOL IH SCH ×4 (03:34→21:37)
[2018-06-02] MEDS: Levalbuterol Neb 1.25 MG/3 ML IH SCH ×4 (03:34→21:37)
[2018-06-02] MEDS: *HR* Heparin 5,000 UNIT/ML VIAL SQ SCH ×2 (06:04→16:47)
[2018-06-02] MEDS ORDERED: levoFLOXacin 750 MG TABLET PO SCH (09:00)
[2018-06-02] MEDS ORDERED: predniSONE 10 MG TABLET PO SCH (09:00)
[2018-06-02] MEDS: Aspirin Enteric Coated 81 MG Tablet PO SCH (09:26)
[2018-06-02] MEDS: Diltiazem CD (24hr) 120 MG CAPSULE PO SCH (09:26)
[2018-06-02] MEDS: hydrALAZINE 25 MG TABLET PO SCH ×3 (09:26→23:50)
[2018-06-02] MEDS: Furosemide 20 MG TABLET PO SCH (09:26)
[2018-06-02] MEDS: cloNIDine HCl 0.1 MG TABLET PO SCH ×3 (09:26→20:32)
[2018-06-02] MEDS: Gabapentin 100 MG CAPSULE PO SCH ×2 (09:26→20:32)
[2018-06-02] MEDS: Insulin LISPRO 300 UNITS/3 ML VIAL SQ SCH ×4 (09:27→21:13)
[2018-06-02] MEDS: Insulin DETEMIR 100 UNIT/ML X5UNITS SQ SCH (09:27)
[2018-06-02] MEDS: Nystatin POWDER 30 GM BOTTLE TP SCH ×2 (09:39→21:20)
[2018-06-02 09:50] LABS: Basophils % 0.1 %; Hematocrit 31.9 % (35.3-44.9); Hemoglobin 9.7 g/dL (11.5-15.4); Immature Granulocytes % 0.5 % (0-4); Lymphocytes # 0.7 K/mcL (0.6-4.6); Lymphocytes % 3.9 %; Mean Corpuscular HGB Conc 30.4 g/dL (31.6-35.5); Mean Corpuscular Hemoglobin 26.6 pg (28.0-33.3); Mean Corpuscular Volume 87.6 fL (83.0-100.0); Monocytes # 2.3 K/mcL (0.0-1.3); Monocytes % 12.9 %; Neutrophils # 14.5 K/mcL (1.6-8.9); Platelet Count 221 K/mcL (140-400); Red Blood Count 3.64 M/mcL (3.82-4.97); Red Cell Distribution Width 16.3 % (11.5-14.5); Segmented Neutrophils % 82.6 %
[2018-06-02 10:09] LABS: Phosphorous 3.2 mg/dL (2.7-4.5); Potassium 4.5 mEq/L (3.5-5.1)
--- NOTE | 2018-06-02 11:25 | Discharge Summary ---
- NOTES TO OUTPATIENT PROVIDER Notes to Outpatient Provider: Follow with PCP within a week of hospital discharge. Follow with Hem&Onc as outpatient. Date of Encounter: 06/03/18 Time of Encounter: 11:23 - Discharge Diagnosis (1) COPD (chronic obstructive pulmonary disease) Priority: Primary Status: Resolved Qualifiers: COPD type: unspecified COPD Qualified Code(s): J44.9 - Chronic obstructive pulmonary disease, unspecified (2) Chronic respiratory failure Priority: Secondary Status: Chronic Qualifiers: Respiratory failure complication: hypoxia and hypercapnia Qualified Code(s) : J96.11 - Chronic respiratory failure with hypoxia; J96.12 - Chronic respiratory failure with hypercapnia (3) HCAP (healthcare-associated pneumonia) Priority: Secondary Status: Resolved (4) Diabetes mellitus Priority: Secondary Status: Chronic Qualifiers: Diabetes mellitus type: type 2 Diabetes mellitus [facility] insulin use: with superintendent container terminal use Diabetes mellitus complication status: with hyperglycemia Qualified Code(s): E11.65 - Type 2 diabetes mellitus with hyperglycemia; 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 transplanted heart: [place] heart Associated angina: without angina Qualified Code(s): I25.810 - Atherosclerosis of coronary artery bypass graft(s) without angina pectoris (6) CKD (chronic kidney disease) stage 3, GFR 30-59 ml/min Priority: Secondary Status: Chronic (7) HTN (hypertension) Priority: Secondary Status: Chronic Qualifiers: Hypertension type: essential hypertension Qualified Code(s): I10 - Essential (primary) hypertension (8) PAF (paroxysmal atrial fibrillation) Priority: Secondary Status: Chronic (9) Diastolic CHF Priority: Secondary Status: Chronic Qualifiers: Heart failure chronicity: chronic Qualified Code(s): I50.32 - Chronic diastolic (congestive) heart failure (10) Local recurrence of malignant neoplasm of colon Priority: Secondary Status: Acute (11) UTI (urinary tract infection) Priority: Secondary Status: Resolved Qualifiers: Urinary tract infection type: site unspecified Hematuria presence: without hematuria Qualified Code(s): N39.0 - Urinary tract infection, site not specified (12) Leukocytosis Priority: Secondary Status: Acute Assessment and Plan: Due to patient on High dose of steroids. Qualifiers: Leukocytosis type: unspecified Qualified Code(s): D72.829 - Elevated white blood cell count, unspecified Hospital course: Ms. Hitchcock is a 72 year old female multiple comorbidities including coronary artery disease with history of CABG, diabetes, renal cell carcinoma with left nephrectomy, paroxysmal atrial fibrillation and recurrence of colon cancer with metastatic disease to liver status post robotic splenic flexure takedown, transverse colectomy on 05/09/18, who presents with worsening productive cough and congestion that has gotten progressively worse since recent discharge from the hospital on the . Was noted to be hypoxic at home today with an O2 saturation of 70%. Patient treated for HCAP, COPD exacerbationa and acute CHF exacerbation. Patient started on IV duiretics, remove 6 litters of fluids. Treated empirically with IV antibiotics, nebs plus cortico-steroids. patient acute symptoms resolved. PT/OT evaluated the patient and recommended SNF, but the patient refused. Prefers to go home with home PT/OT. Patient hemodynamically stable to be discharge home on Oral antibiotics for 3 more day, plus nebs treatment. patient has been on nocturnal BiPap during this hospitalization, but as per evaluation patient does not qualifies for home O2. - Time Spent with Patient Total time spent providing and/or coordinating discharge services: Less than 30 minutes - Discharge Medications Prescriptions: Acetylcysteine 10% 2 ml IH [id number] 30 Days #30 inhsol levoFLOXacin [Levaquin] 750 mg PO Q48H 3 Days #3 tablet Home Medications: Aspirin [Adult Low Dose Aspirin EC] 81 mg PO DAILY 11/15/15 [History] Insulin ASPART [Novolog Flexpen] 15 unit SQ TIDWM MDD + SLIDING SCALE 11/15/15 [ History] Ferrous Sulfate 325 mg PO DAILY 11/29/16 [History] Hydralazine HCl 100 mg PO TID 11/29/16 [History] [place]-3/Dha/Epa/Fish Oil [Fish Oil 1,000 mg Softgel] 1 cap PO DAILY 11/29/16 [ History] cloNIDine HCl [Clonidine HCl] 0.3 mg PO TID #90 tab 03/05/17 [Rx] Albuterol Sulfate [Proair Hfa] 1 puff IH Q4H PRN #1 inh 05/11/17 [Rx] ALPRAZolam [Xanax 0.5 MG Tablet] 0.5 mg PO BID PRN 08/08/17 [History] Pravastatin Sodium [Pravachol] 80 mg PO QPM 08/08/17 [History] Carvedilol [Coreg] 25 mg PO BIDWM #60 tablet 08/18/17 [Rx] Oxygen 2 l NS AD 09/22/17 [History] Furosemide [Lasix] 40 mg PO DAILY PRN 10/19/17 [History] Dulaglutide [Trulicity] 0.75 mg SQ TH 04/13/18 [History] Gabapentin [Neurontin] 100 mg PO BID 04/13/18 [History] Insulin Degludec [Tresiba Flextouch U-200] 62 unit SQ HS 04/13/18 [History] dilTIAZem HCl [Diltiazem 24Hr ER] 120 mg PO DAILY 04/13/18 [History] Mupirocin Calcium [Bactroban Nasal] 1 gm NS BID 5 Days #1 oint...g. 04/16/18 [Rx ] HYDROcodone/Acet 5/325 mg [[place] 5-325 mg] 1 tab PO Q6H PRN 7 Days #28 tab 05/15 [Rx] Ibuprofen 800 mg PO Q8H PRN #30 tablet 05/15/18 [Rx] Acetylcysteine 10% 2 ml IH [id number] 30 Days #30 inhsol 06/02/18 [Rx] levoFLOXacin [Levaquin] 750 mg PO Q48H 3 Days #3 tablet 06/02/18 [Rx] Allergies/Adverse Reactions: 3 Allergy/AdvReac Type Severity Reaction Status Date / Time Sulfa (Sulfonamide Allergy Severe Swelling Verified 04/10/18 15:11 Antibiotics) of Lip/Tongue/Throat Date of admission: 05/25/18 01:38 Primary care physician: Geremias Ryan DO Consults: 05/28/18 10:46 Consult to Cardiology [CONS] Routine Comment: Consulting Provider: Cardiology Es Reason for Consult: Atrial fibrillation with RVR Call Completed: No 05/29/18 14:46 Consult to Surgery [CONS] Routine Consulting Provider: Sammy Hester Reason for Consult: Patient had sx on the of last month. Has arnold to midline. Yellow Drainage noted. Time Notified: 14:47 Call Completed: Yes - Constitutional Vitals: Temp Pulse Resp BP Pulse Ox 98.8 F 98 19 138/88 98 06/02/18 11:12 06/02/18 11:12 06/02/18 11:12 06/02/18 11:12 06/02/18 11:12 Exam: General: Alert and oriented x4. In no distress Cardiovascular: Irregularly irregular, Normal S1 & S2, no rubs, murmurs or gallops. Lungs:minimal expiratory wheezing and rales on auscultation left lower lobe, no crackles. Abdomen: Obese, Soft, non-tender, no rigidity. NABS in all 4 quadrant. Extremities: 2+ pitting edema in the lower extremities. Neurological: Normal cognition. CN II-XII intact. Rest of the physical exam is non contributory - Patient Status Disposition: Home Health Service Condition: Good Functional capacity at discharge: independent ambulation Overall status at discharge: patient is progressing back to baseline - Discharge Instructions Follow Up With: Sabina Hester CNP [Advanced Practice Nurse] - (Two weeks after discharge ) Geremias Ryan DO [Primary Care Provider] - (Follow up with primary care provider following discharge) - Diet and Activity Activity: as per physical therapy Diet: diabetic diet
--- NOTE | 2018-06-02 11:35 | Physician Discharge Referral ---
Home Health/Hosp Referral Info Transfer to: Home Health - Diagnosis (1) COPD (chronic obstructive pulmonary disease) Priority: Primary Status: Resolved (2) Chronic respiratory failure Priority: Secondary Status: Chronic (3) HCAP (healthcare-associated pneumonia) Priority: Secondary Status: Resolved (4) Diabetes mellitus Priority: Secondary Status: Chronic (5) Coronary artery disease Priority: Secondary Status: Chronic (6) CKD (chronic kidney disease) stage 3, GFR 30-59 ml/min Priority: Secondary Status: Chronic (7) HTN (hypertension) Priority: Secondary Status: Chronic (8) PAF (paroxysmal atrial fibrillation) Priority: Secondary Status: Chronic (9) Diastolic CHF Priority: Secondary Status: Chronic (10) Local recurrence of malignant neoplasm of colon Priority: Secondary Status: Acute (11) UTI (urinary tract infection) Priority: Secondary Status: Resolved (12) Leukocytosis Priority: Secondary Status: Acute - Respiratory Orders Oxygen / L per min (2 litters) Smoking Cessation: Smoking cessation has been advised. For more information, call the [place] Tobacco Quit Line at 0-091-VPJL-NOW. - Diet/Nutrition Diet/Nutrition Orders: Regular - Activity Activity Orders: Ambulate - Services Needed Following services are medically necessary services: Nursing, Home Health Aide, Physical Therapy, Occupational Therapy - Transfer Medications Prescriptions: Acetylcysteine 10% 2 ml IH [id number] 30 Days #30 inhsol levoFLOXacin [Levaquin] 750 mg PO Q48H 3 Days #3 tablet Home Medications: Aspirin [Adult Low Dose Aspirin EC] 81 mg PO DAILY 11/15/15 [History] Insulin ASPART [Novolog Flexpen] 15 unit SQ TIDWM MDD + SLIDING SCALE 11/15/15 [ History] Ferrous Sulfate 325 mg PO DAILY 11/29/16 [History] Hydralazine HCl 100 mg PO TID 11/29/16 [History] [place]-3/Dha/Epa/Fish Oil [Fish Oil 1,000 mg Softgel] 1 cap PO DAILY 11/29/16 [ History] cloNIDine HCl [Clonidine HCl] 0.3 mg PO TID #90 tab 03/05/17 [Rx] Albuterol Sulfate [Proair Hfa] 1 puff IH Q4H PRN #1 inh 05/11/17 [Rx] ALPRAZolam [Xanax 0.5 MG Tablet] 0.5 mg PO BID PRN 08/08/17 [History] Pravastatin Sodium [Pravachol] 80 mg PO QPM 08/08/17 [History] Carvedilol [Coreg] 25 mg PO BIDWM #60 tablet 08/18/17 [Rx] Oxygen 2 l NS AD 09/22/17 [History] Furosemide [Lasix] 40 mg PO DAILY PRN 10/19/17 [History] Dulaglutide [Trulicity] 0.75 mg SQ TH 04/13/18 [History] Gabapentin [Neurontin] 100 mg PO BID 04/13/18 [History] Insulin Degludec [Tresiba Flextouch U-200] 62 unit SQ HS 04/13/18 [History] dilTIAZem HCl [Diltiazem 24Hr ER] 120 mg PO DAILY 04/13/18 [History] Mupirocin Calcium [Bactroban Nasal] 1 gm NS BID 5 Days #1 oint...g. 04/16/18 [Rx ] HYDROcodone/Acet 5/325 mg [[place] 5-325 mg] 1 tab PO Q6H PRN 7 Days #28 tab 05/15 [Rx] Ibuprofen 800 mg PO Q8H PRN #30 tablet 05/15/18 [Rx] Acetylcysteine 10% 2 ml IH [id number] 30 Days #30 inhsol 06/02/18 [Rx] levoFLOXacin [Levaquin] 750 mg PO Q48H 3 Days #3 tablet 06/02/18 [Rx] Allergies/Adverse Reactions: 3 Allergy/AdvReac Type Severity Reaction Status Date / Time Sulfa (Sulfonamide Allergy Severe Swelling Verified 04/10/18 15:11 Antibiotics) of Lip/Tongue/Throat Certification: Further, I certify that my clinical findings support that this patient is homebound (i.e. absences from home require considerable and taxing effort and are for medical reasons or anabaptism services or infrequently or short duration when for other reasons) because: Homebound Reason: Patient requires assistance of a person or device to safely leave home Attestation: My signature below is to certify that this patient is under my care and that I, or nurse practitioner, or a physician's workforce development assistant working with me, has a face-to -face encounter with this patient.
[2018-06-02] MEDS ORDERED: Insulin DETEMIR 100 UNIT/ML X5UNITS SQ ONE (12:06)
[2018-06-02] MEDS ORDERED: Insulin LISPRO 300 UNITS/3 ML VIAL SQ ONE ×2 (16:35→18:12)
[2018-06-02] MEDS ORDERED: Insulin DETEMIR 100 UNIT/ML X5UNITS SQ SCH (21:00)
[2018-06-03] MEDS: Levalbuterol Neb 1.25 MG/3 ML IH SCH ×2 (03:39→10:18)
[2018-06-03] MEDS: Acetylcysteine 10% 2 ML INHSOL IH SCH ×2 (03:39→10:21)
[2018-06-03] MEDS: *HR* Heparin 5,000 UNIT/ML VIAL SQ SCH (05:28)
[2018-06-03] MEDS ORDERED: Insulin DETEMIR 100 UNIT/ML X5UNITS SQ SCH ×2 (07:30→09:00)
[2018-06-03] MEDS ORDERED: predniSONE 5 MG TABLET PO SCH (09:00)
[2018-06-03] MEDS: Insulin LISPRO 300 UNITS/3 ML VIAL SQ SCH ×4 (09:06→13:02)
[2018-06-03] MEDS: hydrALAZINE 25 MG TABLET PO SCH (09:08)
[2018-06-03] MEDS: Diltiazem CD (24hr) 120 MG CAPSULE PO SCH (09:08)
[2018-06-03] MEDS: Gabapentin 100 MG CAPSULE PO SCH (09:08)
[2018-06-03] MEDS: cloNIDine HCl 0.1 MG TABLET PO SCH (09:08)
[2018-06-03] MEDS: Aspirin Enteric Coated 81 MG Tablet PO SCH (09:08)
[2018-06-03] MEDS: Furosemide 20 MG TABLET PO SCH (09:08)
[2018-06-03] MEDS: Nystatin POWDER 30 GM BOTTLE TP SCH (09:09)
--- NOTE | 2018-06-03 09:13 | Event Note ---
Date of Encounter: 06/03/18 Time of Encounter: 09:08 Patient was seen and evaluated at bedside. Reports that her respiratory status has improved significantly and that she is back to her baseline. Reports productive cough, denies shortness of breath. PHysical exam General: Alert and oriented x4. In no distress Cardiovascular: Irregularly irregular, Normal S1 & S2, no rubs, murmurs or gallops. Lungs: minimal bilateral scattered expiratory wheezing, and rales on auscultation left lower lobe more than right lung, no crackles. Abdomen: Obese, Soft, non-tender, no rigidity. NABS in all 4 quadrant. Extremities: 2+ pitting edema in the lower extremities. Neurological: Normal cognition. CN II-XII intact. Rest of the physical exam is non contributory Assessment and Plan 1. COPD exacerbation (resolved) 2. Pneumonia 3. CHF exacerbation (resolved) 4. Hx of Cancer with Liver mets 5. CKD 6. Diabetes mellitus 7 VTE prophylaxis 8. Chronic Hypoxemic respiratory failure Plan: Today patient blood sugar is better controlled 140. Patient being discharge home with home services For discharge planning refrain to the discharge package done yesterday.
[2018-06-03 09:29] LABS: Basophils % 0.1 %; Eosinophils # 0.1 K/mcL (0.0-0.6); Eosinophils % 0.5 %; Hematocrit 32.2 % (35.3-44.9); Hemoglobin 9.8 g/dL (11.5-15.4); Immature Granulocytes % 0.7 % (0-4); Lymphocytes # 0.7 K/mcL (0.6-4.6); Lymphocytes % 3.4 %; Mean Corpuscular HGB Conc 30.4 g/dL (31.6-35.5); Mean Corpuscular Hemoglobin 26.6 pg (28.0-33.3); Mean Corpuscular Volume 87.3 fL (83.0-100.0); Mean Platelet Volume 11.5 fL (9.4-12.4); Monocytes % 14.9 %; Neutrophils # 16.1 K/mcL (1.6-8.9); Platelet Count 227 K/mcL (140-400); Red Blood Count 3.69 M/mcL (3.82-4.97); Red Cell Distribution Width 16.4 % (11.5-14.5); Segmented Neutrophils % 80.4 %
[2018-06-03 09:56] LABS: Calcium 8.8 mg/dL (8.6-10.3); Magnesium 1.8 mg/dL (1.6-2.6); Potassium 4.6 mEq/L (3.5-5.1)
[2018-06-03 11:55] VITALS: BP 110/44
== END 2018-06-03 14:13 | disposition home health service (06) | DRG 871 ==
LOC: EMEROOARM 18:03 → 2ANU 18:03 → SUATTDRO 05-25 01:38
PROVIDERS: ADMIT Internal Medicine; ATTEND Internal Medicine

== ENCOUNTER 2018-12-06 22:32 | Inpatient (IN) ==
[2018-12-07] MEDS ORDERED: Dextrose Gel 15 GM/37.5 ML TUBE PO PRN ×2 (02:33)
[2018-12-07] MEDS ORDERED: D5% in Water 1,000 ML IVC PRN (02:33)
[2018-12-07] MEDS ORDERED: *HR* Dextrose 50 % in Water (Syg) 50 ML SYRINGE IVP PRN (02:33)
[2018-12-07] MEDS ORDERED: Ringers Solution, Lactated 1,000 ML IVC SCH (05:30)
[2018-12-07] MEDS: Insulin LISPRO 300 UNITS/3 ML VIAL SQ SCH ×5 (05:30→21:34)
[2018-12-07] MEDS ORDERED: Acetaminophen 325 MG TABLET PO PRN (06:37)
[2018-12-07] MEDS ORDERED: Naloxone 0.4 MG/ML INJ IVP PRN (06:37)
[2018-12-07] MEDS: *HR* OxyCODONE Immed Rel 5 MG TABLET PO PRN (07:28)
[2018-12-07 07:41] LABS: Hematocrit 28.9 % (35.3-44.9); Hemoglobin 9.7 g/dL (11.5-15.4); Mean Corpuscular HGB Conc 33.6 g/dL (31.6-35.5); Mean Corpuscular Hemoglobin 30.1 pg (28.0-33.3); Mean Corpuscular Volume 89.8 fL (83.0-100.0); Mean Platelet Volume 11.2 fL (9.4-12.4); Platelet Count 164 K/mcL (140-400); Red Blood Count 3.22 M/mcL (3.82-4.97); Red Cell Distribution Width 18.4 % (11.5-14.5)
[2018-12-07 07:49] LABS: INR 1.4; Prothrombin Time 16.2 Seconds (9.4-12.1)
[2018-12-07 07:52] LABS: Activated Partial Thrombo Time 22.2 Seconds (26.0-36.0)
[2018-12-07 08:01] LABS: Albumin 2.8 g/dL (3.5-5.7); Bilirubin,Direct 0.2 mg/dL (0.0-0.2); Bilirubin,Indirect 0.4 mg/dL (0.0-1.2); Bilirubin,Total 0.6 mg/dL (0.3-1.0); Calcium 8.7 mg/dL (8.6-10.3); Globulin 2.8 g/dL (2.4-3.5); Potassium 4.2 mEq/L (3.5-5.1); Total Protein 5.6 g/dL (6.4-8.9)
[2018-12-07 08:26] LABS: Anisocytosis 1+ (Not Present); Platelet Estimate Normal (Normal)
[2018-12-07 08:29] LABS: Lymphocytes # 1.2 K/mcL (0.6-4.6); Monocytes # 0.1 K/mcL (0.0-1.3); Neutrophils # 4.5 K/mcL (1.6-8.9)
[2018-12-07] MEDS ORDERED: Ondansetron 4 MG/2 ML VIAL IVP PRN (11:50)
[2018-12-07] MEDS ORDERED: Vancomycin 1 EACH in 0.9 % Sodium Chloride 250 ML IVPB PRN (12:00)
[2018-12-07] MEDS: Piperacillin/Tazobactam 3.375 GM in 0.9 % Sodium Chloride Mini Bag 100 ML IVPB SCH ×2 (14:43→21:27)
[2018-12-07] MEDS: MethylPREDNISolone 40 MG/ML VIAL IVP SCH ×2 (14:43→21:27)
--- NOTE | 2018-12-07 15:20 | Internal Med History&Physical ---
Date of Encounter: 12/07/18 Time of Encounter: 13:00 Internal Medicine - H&P: HPI Chief complaint: Shortness of breath Admitted From: Hospital to Hospital Transfer History of present illness: Ms. Hitchcock is a 73 year old female with history of metastatic colon cancer to lungs and liver on palliative chemotherapy, RCC status post nephrectomy with resultant CKD, hypertension, diabetes, oxygen dependent COPD, afib on Eliquis, who was transferred from [facility] ED due to the concern of pneumonia and urinary tract infection. States that she was short of breath for the last 3 days with cough but no significant sputum production. Denies any sick contacts or URI symptoms. Patient's daughter, who is a main caregiver, also stated that patient appeared progressively weak over the last several days. Denies any chest pain, palpitation, orthopnea, PND, or leg swelling. No GI/ symptoms. She was recently admitted in mid October due to influenza B and pneumonia. Had her last chemotherapy on Monday, 11/30. At the outside hospital ED, she was noted to be febrile and hemodynamically stable. Workup showed normal white blood cell count but band of 8%, elevated CRP, and CT showing multifocal nodular densities in bilateral upper lobes and right lower lobe which could be compatible with pneumonia or progressive metastatic disease. Her urinalysis was also positive for nitrite and trace leukocyte esterase. She was started on vancomycin/Zosyn and transferred to [facility] for further management. Past Med Surg Social Fam HX - Past Medical History Medical history: arthritis, asthma, atrial fibrillation, cancer, CHF, COPD, coronary artery disease, diabetes, hyperlipidemia, hypertension, myocardial infarction, venous stasis, other Additional medical history: Sleep apnea, Osteoporosis, Liver lesions, Pneumonia, UTI, type II diabetes Psychiatric history: anxiety, depression - Past Surgical History Surgical History: angioplasty/stent, cholecystectomy, colectomy, coronary bypass (CABG), other Additional surgical history: Left nephrectomy- 2017, Excision of RLE mass 2017, colon resection,2-stents during heart cath - Social History Smoking Status: Never smoker Smokeless Tobacco Status: No Alcohol use: none Drug use: none - Family History Father Family Member Ethnicity: Non- Living Status: Hx Family Cardiac Disorders: Yes ( of [place]) Hx Family Respiratory Disorders: No Hx Family Cancer: No Hx Family GI Disorders: No Hx Family Endocrine Disorder: No Hx Family Neuromuscular Disorders: No Hx Family Neurologic Disorders: No Hx Family HEENT Disorders: No Hx Family Autoimmune Disorders: No Brother Family Member Ethnicity: Non- Living Status: Hx Family Cancer: Yes (Throat) Sister Family Member Ethnicity: Non- Living Status: Still Living Hx Family Respiratory Disorders: Yes (Emphysema) Hx Family Cancer: Yes (Breast) Mother Family Member Ethnicity: Non- Living Status: Hx Family Cardiac Disorders: No Hx Family Respiratory Disorders: Yes (asthma) Hx Family Cancer: Yes Hx Family GI Disorders: No Hx Family Endocrine Disorder: No Hx Family Neuromuscular Disorders: No Hx Family Neurologic Disorders: No Hx Family HEENT Disorders: No Hx Family Autoimmune Disorders: No Internal Medicine - H&P: Meds Insulin ASPART [Novolog Flexpen] 15 unit SQ TIDWM MDD + SLIDING SCALE 11/15/15 [History] Hydralazine HCl 100 mg PO TID 11/29/16 [History] ALPRAZolam [Xanax 0.5 MG Tablet] 0.5 mg PO BID PRN 08/08/17 [History] Pravastatin Sodium [Pravachol] 80 mg PO HS 08/08/17 [History] Oxygen 2 l NS AD 09/22/17 [History] Albuterol Neb [Proventil Neb] 2.5 mg IH Q8H PRN 08/29/18 [History] Albuterol Sulfate [Proair Hfa] 2 puff IH Q6H PRN 08/29/18 [History] Aspirin [Lo-Dose Aspirin EC] 81 mg PO DAILY 08/29/18 [History] Ferrous Sulfate [Iron] 325 mg PO DAILY 08/29/18 [History] Fluticasone Propionate Nasal [Flonase] 50 mcg NS DAILY PRN 11/09/18 [History] cloNIDine HCl [Clonidine HCl] 0.3 mg PO BID 11/09/18 [History] Apixaban [Eliquis] 2.5 mg PO BID 11/10/18 [History] Carvedilol [Coreg] 25 mg PO BID 11/10/18 [History] Collagenase Oint [Santyl] 1 appl TP BID 11/10/18 [History] Diltiazem CD (24hr) [Cardizem CD] 120 mg PO DAILY 11/10/18 [History] Dulaglutide [Trulicity] 0.75 mg SQ TH 11/10/18 [History] Gabapentin [Neurontin] 100 mg PO BID 11/10/18 [History] Insulin Degludec [Tresiba Flextouch U-200] 62 unit SQ HS 11/10/18 [History] [place]-3/Dha/Epa/Fish Oil [[facility] Fish Oil 1,000 mg Softgel] 1 cap PO DAILY 11/10/18 [History] Potassium Chloride 20 meq PO DAILY 11/10/18 [History] Furosemide [Lasix] 40 mg PO DAILY #0 11/12/18 [Rx] Levofloxacin [Levaquin] 750 mg PO Q48H #2 tablet 11/12/18 [Rx] Losartan [Cozaar] 100 mg PO DAILY tablet 11/12/18 [Rx] Oseltamivir Phosphate [Tamiflu] 30 mg PO DAILY #1 capsule 11/12/18 [Rx] predniSONE [PredniSONE] 40 mg PO DAILY #10 tablet 11/12/18 [Rx] Fluconazole [Diflucan] 200 mg PO DAILY #5 tab 11/23/18 [Rx] Nitrofurantoin (BID) [Macrobid] 100 mg PO BID #30 capsule 11/30/18 [Rx] Allergy/AdvReac Type Severity Reaction Status Date / Time Sulfa (Sulfonamide Allergy Severe Swelling Verified 11/30/18 08:51 Antibiotics) of Lip/Tongue/Throat All Systems PM: A 10-system review of systems was performed and is negative for pertinent findings except as documented above in the HPI. - Constitutional Vitals: Temp Pulse Resp BP Pulse Ox 98.3 F 67 18 134/73 96 12/07/18 14:55 12/07/18 14:55 12/07/18 14:55 12/07/18 14:55 12/07/18 14:55 Exam: General: Alert and oriented, mild respiratory distress. HEENT:EOMI, pupils equal, round and reactive. Cardiovascular:Normal S1 & S2, No JVD. Pulse regular. Lungs: Wheezes bilaterally with scattered rhonchi at the lung bases Abdomen:Soft, non-tender, no rigidity. Extremities:No deformity or swelling Neurological:Normal cognition and motor skills. Non-focal Skin:Normal color, no rash, no lesions. Pulses:Carotid and radial pulses normal +2. Rest of the physical exam is non contributory Internal Med - H&P Results - Labs CBC & Chem 7: 12/07/18 07:25 12/07/18 07:25 Labs: Short CBC 12/07/18 Range/Units 07:25 WBC 5.8 D (4.3-11.1) K/mcL Hgb 9.7 L (11.5-15.4) g/dL Hct 28.9 L (35.3-44.9) % Plt Count 164 (140-400) K/mcL Neutrophils # 4.5 (1.6-8.9) K/mcL BMP 12/07/18 07:25 Sodium 132 L Potassium 4.2 Chloride 95 L Carbon Dioxide 25 BUN 55 H Creatinine 1.74 H Glucose 250 H Calcium 8.7 Liver Function 12/07/18 Range/Units 07:25 Total Bilirubin 0.6 (0.3-1.0) mg/dL Direct Bilirubin 0.2 (0.0-0.2) mg/dL AST 10 L (13-39) Units/L ALT 8 (7-52) Units/L Alkaline Phosphatase 137 H (34-104) Units/L Albumin 2.8 L (3.5-5.7) g/dL - Assessment and Plan (1) HCAP (healthcare-associated pneumonia) Current Visit: Yes Status: Acute Assessment and plan: Immunocompromised patient on palliative chemotherapy for metastatic colon cancer is admitted for shortness of breath with CT finding of multiple nodular densities which could be compatible with pneumonia versus progressive metastatic disease Normal WBC but band of 8% at the OSH ED recently admitted for pneumonia and influenza B infection in mid October Started on vancomycin/Zosyn, continue MRSA screen, strep/Legionella antigen, sputum culture if able to expectorate check RIP bronchodilators, steroid for COPD exacerbation as below (2) COPD exacerbation Current Visit: Yes Status: Acute Assessment and plan: Antibiotics as above Steroids, bronchodilators. Resume home inhalers (3) Chronic diastolic (congestive) heart failure Current Visit: No Status: Chronic Assessment and plan: Does not appear to be in exacerbation. Resume home dose of Lasix once reconciled (4) Atrial fibrillation Current Visit: No Status: Chronic Assessment and plan: On Eliquis Resume home meds for rate control once reconciled. Will use PRN lopressor till then Qualifiers: Atrial fibrillation type: paroxysmal Qualified Code(s): I48.0 - Paroxysmal atrial fibrillation (5) CKD (chronic kidney disease) stage 3, GFR 30-59 ml/min Current Visit: No Status: Chronic Assessment and plan: Creatinine at baseline Renally dosed antibiotics Avoid nephrotoxins (6) Colon cancer metastasized to liver Current Visit: No Status: Chronic Assessment and plan: On palliative chemotherapy. 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: without retirement use Diabetes mellitus complication status: with hyperglycemia Qualified Code(s): E11.65 - Type 2 diabetes mellitus with hyperglycemia (8) HTN (hypertension) Current Visit: No Status: Chronic Assessment and plan: resume home meds once reconciled Qualifiers: Hypertension type: essential hypertension Qualified Code(s): I10 - Esse ntial (primary) hypertension (9) Obesity (BMI 30-39.9) Current Visit: No Status: Chronic Assessment and plan: lifestyle modifications (10) UTI (urinary tract infection) Current Visit: No Status: Suspected Assessment and plan: incidental finding on urinalysis, pt not symptomatic on abx for PNA as above Qualifiers: Urinary tract infection type: acute cystitis Hematuria presence: without hematuria Qualified Code(s): N30.00 - Acute cystitis without hematuria (11) Goals of care, counseling/discussion Current Visit: Yes Status: Acute Assessment and plan: Discussed with patient and her daughter at bedside. Wants to remain as full code but verbalizes understanding of poor overall prognosis (12) DVT prophylaxis Current Visit: Yes Status: Acute Assessment and plan: Deven price - Time Spent With Patient Total time spent is greater than 50% in coordination of care (as documented) at patient's floor/unit and/or counseling patient: Greater than 35 minutes
[2018-12-07] MEDS: Ipratropium/Albuterol Neb 3 ML IH SCH ×3 (15:56→21:12)
[2018-12-07 18:15] LABS: Adenovirus Not Detected (Not Detect); Bordetella Pertussis Not Detected (Not Detect); Chlamydophila pneumoniae Not Detected (Not Detect); Coronavirus 229E Not Detected (Not Detect); Coronavirus HKU1 Not Detected (Not Detect); Coronavirus NL63 Not Detected (Not Detect); Coronavirus OC43 Not Detected (Not Detect); Human Metapneumovirus Not Detected (Not Detect); Human Rhinovirus/Enterovirus Not Detected (Not Detect); Influenza A Subtype 2009 H1 Not Detected (Not Detect); Influenza A Untypeable Not Detected (Not Detect); Influenza B Not Detected (Not Detect); Mycoplasma pneumoniae Not Detected (Not Detect); Parainfluenza Virus 1 Not Detected (Not Detect); Parainfluenza Virus 2 Not Detected (Not Detect); Parainfluenza Virus 3 Not Detected (Not Detect); Parainfluenza Virus 4 Not Detected (Not Detect); Respiratory Syncytial Virus Not Detected (Not Detect)
[2018-12-07] MEDS ORDERED: Insulin DETEMIR 100 UNIT/ML X5UNITS SQ SCH (21:00)
[2018-12-07] MEDS: Apixaban 5 MG TABLET PO SCH (21:34)
[2018-12-08] MEDS: Ipratropium/Albuterol Neb 3 ML IH SCH ×2 (00:29→04:32)
[2018-12-08] MEDS: Piperacillin/Tazobactam 3.375 GM in 0.9 % Sodium Chloride Mini Bag 100 ML IVPB SCH ×2 (03:31→14:56)
[2018-12-08] MEDS: MethylPREDNISolone 40 MG/ML VIAL IVP SCH ×2 (03:32→14:57)
[2018-12-08 03:55] LABS: Basophils % 0.3 %; Hematocrit 32.2 % (35.3-44.9); Hemoglobin 10.4 g/dL (11.5-15.4); Immature Granulocytes % 0.8 % (0-4); Lymphocytes # 0.3 K/mcL (0.6-4.6); Lymphocytes % 8.6 %; Mean Corpuscular HGB Conc 32.3 g/dL (31.6-35.5); Mean Corpuscular Hemoglobin 29.5 pg (28.0-33.3); Mean Corpuscular Volume 91.2 fL (83.0-100.0); Mean Platelet Volume 11.6 fL (9.4-12.4); Monocytes # 0.1 K/mcL (0.0-1.3); Monocytes % 3.1 %; Neutrophils # 3.4 K/mcL (1.6-8.9); Platelet Count 186 K/mcL (140-400); Red Blood Count 3.53 M/mcL (3.82-4.97); Segmented Neutrophils % 87.2 %
[2018-12-08 04:12] LABS: Anisocytosis 1+ (Not Present); Platelet Estimate Normal (Normal)
[2018-12-08 04:14] LABS: Calcium 8.6 mg/dL (8.6-10.3); Potassium 4.5 mEq/L (3.5-5.1)
--- NOTE | 2018-12-08 05:07 | Event Note ---
Date of Encounter: 12/08/18 Time of Encounter: 02:14 Alerted by pts. nurse BAO Chavez to call immediately about patient. Spoke with nurse reported patient had acute onset of altered mental status. On the way to see this patient on 2A, another patient 2A suddenly went into SVTs and required my immediate attention. Following stabilization of patient with SVT, went to see this patient who is seated at bedside. Patient alert to name and the fact that she was a hospital. Nurse reports this was not patient's baseline. Did neurologic exam with patient having equal strengths bilaterally in UEs and reduced strength in LLE compared to RLE. No facial droop, pronator drift, slurred speech, or other neurologic deficits noted on exam. Stat CT of the head without contrast ordered which showed no masses no acute intracranial hemorrhage. Intact jean/white matter differentiation without findings of acute ischemia. No mass effect or midline shift. Patent basilar cisterns and foramen magnum. No hydrocephalus. Age-appropriate diffuse atrophy. Mild to moderate subcortical, deep, and periventricular white matter hypodensities likely due to chronic small vessel ischemia. Old lacunar infarcts in the bilateral basal ganglia. Bilateral proptosis and no acute abnormality of the orbits. Hypoplastic left frontal sinus and bilateral mastoid air cells. Layering secretions in the bilateral ethmoid, bilateral maxillary, and bilateral sphenoid sinuses, worse on the right. Minimal to mild mucosal thickening in the right maxillary sinus with minimal involvement of the bilateral ethmoid, left maxillary, and right sphenoid sinuses. No acute soft tissue abnormality. Mild atherosclerotic calcifications. No acute fracture. Patient admitted with UTI, COPD exacerbation, and HCAP. Patient is also immunocompromised on palliative chemotherapy for metastatic colon cancer. Sx likely d/t UTI w/superimposition of HCAP infection. Metastatic lesions not ruled out and would require MRI. Patient currently flagging as sepsis risk with HR 133, RR 20, WBC 3.9. Lactic acid ordered stat. Patient is currently on IVPB vancomycin with pharmacy dosing and Zosyn for infection coverage. Awaiting lactic acid results. EKG ordered to assess for atrial fibrillation which patient has a history of and is currently on Eliquis for. Nurse instructed to continue monitoring patient very closely and alert me immediately of any adverse changes. Alerted by nurse that the pt. was now in Aflutter w/RVR. Instructed nurse to place pt. on telemetry, however no telemetry available on 2A. Pt. moved to 2N12 d/t no tele beds left.
[2018-12-08] MEDS ORDERED: *HR* Metoprolol 5 MG/5 ML VIAL IVP ONE (05:55)
--- NOTE | 2018-12-08 06:43 | Event Note ---
Date of Encounter: 12/08/18 Time of Encounter: 06:41 Patient was moved to 2 N. due to lack of telemetry onto a. Patient went into atrial flutter with rapid ventricular response. EKG was obtained and reviewed which showed concern for ST depression as well as atrial flutter. Patient had been given 5 metoprolol prior to being seen by myself. Patient was still tachycardic in the 130s. I feel that the patient's depressions are likely secondary to demand ischemia however we will obtain a troponin as well as provide the patient with 15 mg of diltiazem. Patient denied any chest pain upon my evaluation. A repeat EKG has been ordered and I spoke to the nurse about obtain EKG after her heart rate had slowed down to reevaluate the patient's ST depression. Besides the patient having tachycardia into the 130s she is stable with a blood pressure in the 160s and should be able to tolerate the 15 mg of Cardizem.
[2018-12-08] MEDS ORDERED: 0.9 % Sodium Chloride 500 ML IVC ONE (07:18)
[2018-12-08] MEDS: Apixaban 5 MG TABLET PO SCH (08:31)
[2018-12-08] MEDS: Insulin LISPRO 300 UNITS/3 ML VIAL SQ SCH ×4 (08:52→21:08)
[2018-12-08] MEDS: *HR* HYDROcodone/Acet 5/325 mg TABLET PO PRN (09:07)
[2018-12-08] MEDS: 0.9 % Sodium Chloride 1,000 ML IVC SCH (09:13)
[2018-12-08] MEDS: Levalbuterol Neb 0.63 MG/3 ML IH SCH ×3 (09:59→21:23)
[2018-12-08] MEDS ORDERED: Fluticasone Propionate Nasal 50 MCG/SPRAY BOTTLE NS PRN (11:21)
[2018-12-08] MEDS ORDERED: *HR* LORazepam 2 MG/ML VIAL IVP ONE (12:04)
[2018-12-08] MEDS: ALPRAZolam 0.5 MG TABLET PO PRN (12:08)
[2018-12-08] MEDS: cloNIDine HCl 0.1 MG TABLET PO SCH ×2 (14:57→20:59)
[2018-12-08] MEDS: hydrALAZINE 25 MG TABLET PO SCH ×2 (14:58→20:59)
--- NOTE | 2018-12-08 15:15 | Internal Med Progress Note ---
Hospitalist Progress Note - Encounter Date of Encounter: 12/08/18 Time of Encounter: 07:00 - Subjective Interval History: Overnight event noted, patient apparently developed worsening mental status with tachyarrhythmia. CT head was done which did not show any acute intracranial process. She did not have any focal neurological deficits. Lactic acid was also ordered that came back elevated at 3.7. Heart rate continue to remain poorly controlled in the rate of 130s. Patient does appear to be more confused than yesterday and denies any focal complaints. She just wants to be discharged. - Exam Vitals: Temp Pulse Resp BP Pulse Ox 98.1 F 71 18 109/66 98 12/08/18 15:00 12/08/18 15:00 12/08/18 15:00 12/08/18 15:00 12/08/18 15:00 Exam: General: Alert, oriented to place only but is able to recognize her family members, anxious appearing Cardiovascular:Normal S1 & S2, No JVD. Pulse irregualr and tachycardic. Lungs: scattered rhonchi at the lung bases, wheezes improving Abdomen:Soft, non-tender, no rigidity. Extremities:No deformity or swelling Neurological: Moving all 4 limbs spontaneously - Assessment and Plan (1) HCAP (healthcare-associated pneumonia) Current Visit: Yes Status: Acute Assessment and Plan: Immunocompromised patient on palliative chemotherapy for metastatic colon cancer is admitted for shortness of breath with CT finding of multiple nodular densities which could be compatible with pneumonia versus progressive metastatic disease Normal WBC but band of 8% at the OSH ED recently admitted for pneumonia and influenza B infection in mid October continue vancomycin/Zosyn, Sputum culture growing GPC Resp viral panel -ve MRSA screen, strep/Legionella antigen pending. bronchodilators, steroid for COPD exacerbation as below (2) Atrial fibrillation with rapid ventricular response Current Visit: Yes Status: Acute Assessment and Plan: Developed A. fib with RVR overnight likely due to underlying infection resume home meds and use cardizem gtt if HR persistently remains above 110 Continue Eliquis trend troponin (3) Lactic acidosis Current Visit: Yes Status: Acute Assessment and Plan: Likely due to hypoperfusion from poorly controlled heart rate given 500 fluid bolus without any improvement will mx afib with RVR as above and repeat check CT abdomen to rule out ischemic colitis (4) Metabolic encephalopathy Current Visit: Yes Status: Acute Assessment and Plan: Developed worsening mentation overnight without any focal neurological deficit likely due to underlying infection, tx as above (5) COPD exacerbation Current Visit: Yes Status: Acute Assessment and Plan: Antibiotics as above Steroids, bronchodilators. Resume home inhalers (6) Chronic diastolic (congestive) heart failure Current Visit: No Status: Chronic Assessment and Plan: Does not appear to be in exacerbation. lasix will remain on hold as Cr is improving on very gentle hydration (7) CKD (chronic kidney disease) stage 3, GFR 30-59 ml/min Current Visit: No Status: Chronic Assessment and Plan: Creatinine at baseline Renally dosed antibiotics Avoid nephrotoxins (8) Colon cancer metastasized to liver Current Visit: No Status: Chronic Assessment and Plan: On palliative chemotherapy. Overall poor prognosis (9) Diabetes mellitus Current Visit: Yes Status: Chronic Assessment and Plan: Increase Levemir to 45 units at bedtime and sliding scale to moderate dose (10) HTN (hypertension) Current Visit: No Status: Chronic Assessment and Plan: resume home meds (11) Obesity (BMI 30-39.9) Current Visit: No Status: Chronic Assessment and Plan: lifestyle modifications (12) UTI (urinary tract infection) Current Visit: No Status: Suspected Assessment and Plan: incidental finding on urinalysis, pt not symptomatic on abx for PNA as above (13) Goals of care, counseling/discussion Current Visit: Yes Status: Acute Assessment and Plan: Discussed with patient and her daughter at bedside. Wants to remain as full code but verbalizes understanding of poor overall prognosis (14) DVT prophylaxis Current Visit: Yes Status: Acute Assessment and Plan: Deven resumed - Time Spent with Patient Total time spent is greater than 50% in coordination of care (as documented) at patient's floor/unit and/or counseling patient: Greater than 35 minutes Plan of Care Discussed with: patient (discussed with pt's family and RN in great detail) Internal Medicine: Result - Labs CBC & Chem 7: 12/08/18 03:35 12/08/18 03:35 Labs: Short CBC 12/08/18 Range/Units 03:35 WBC 3.9 L (4.3-11.1) K/mcL Hgb 10.4 L (11.5-15.4) g/dL Hct 32.2 L (35.3-44.9) % Plt Count 186 (140-400) K/mcL Neutrophils # 3.4 (1.6-8.9) K/mcL BMP 12/08/18 03:35 Sodium 132 L Potassium 4.5 Chloride 98 Carbon Dioxide 20 L BUN 49 H Creatinine 1.45 H Glucose 334 H Calcium 8.6 Cardiac Enzymes 12/08/18 Range/Units 06:49 Troponin I 0.04 H* (< 0.04) ng/mL - ABG Interpretation ABG results: PT/INR, D-dimer PT 16.2 Seconds (9.4-12.1) H 12/07/18 07:25 - Impressions Impressions Head CT 12/08/18 03:21 IMPRESSION: 1. No acute intracranial abnormality. 2. Unchanged chronic findings as above. 3. Paranasal sinus disease with possible superimposed acute sinusitis, worse on the right. D/ / Jesu Roberts MD / Jesu Roberts MD Interpreting Provider: Jesu Roberts MD Abdomen/Pelvis CT 12/08/18 11:57 IMPRESSION: 1. Partial colonic resection with dilated fluid-filled bowel distal of the surgical anastomosis extending to the rectum. No associated inflammatory changes. 2. Right middle lobe infiltrate. 3. Right lower lobe bronchiolitis with multiple indeterminate pulmonary nodules measuring up to 5 mm. This is new since September 2018 and potentially relate to postinfectious or inflammatory origin. Metastatic disease is not excluded. Close interval follow-up evaluation recommended to assure resolution. 4. Stable hepatic metastasis. D/ / 12/08/2018 14:17:12 Jim Hartman MD / venkat Interpreting Provider: Jim Hartman MD Consult Discharge Plan - Plan Referrals: NONE,PCP [Primary Care Provider] - (9) Diabetes mellitus Qualifiers: Diabetes mellitus type: type 2 Diabetes mellitus [facility] insulin use: without [facility] use Diabetes mellitus complication status: with hyperglycemia Qualified Code(s): E11.65 - Type 2 diabetes mellitus with hyperglycemia (10) HTN (hypertension) Qualifiers: Hypertension type: essential hypertension Qualified Code(s): I10 - Essential (primary) hypertension (12) UTI (urinary tract infection) Qualifiers: Urinary tract infection type: acute cystitis Hematuria presence: without hematuria Qualified Code(s): N30.00 - Acute cystitis without hematuria
[2018-12-08] MEDS: Apixaban 2.5 MG TABLET PO SCH (20:59)
[2018-12-08] MEDS: Gabapentin 100 MG CAPSULE PO SCH (20:59)
[2018-12-08] MEDS: Insulin DETEMIR 100 UNIT/ML X5UNITS SQ SCH (21:00)
[2018-12-09] MEDS: MethylPREDNISolone 40 MG/ML VIAL IVP SCH ×2 (02:19→13:01)
[2018-12-09] MEDS: 0.9 % Sodium Chloride 1,000 ML IVC SCH (02:20)
[2018-12-09] MEDS: Piperacillin/Tazobactam 3.375 GM in 0.9 % Sodium Chloride Mini Bag 100 ML IVPB SCH ×2 (02:21→13:01)
[2018-12-09] MEDS: Levalbuterol Neb 0.63 MG/3 ML IH SCH ×4 (03:57→22:17)
[2018-12-09] MEDS: *HR* Metoprolol 5 MG/5 ML VIAL IVP PRN (06:23)
[2018-12-09 06:25] LABS: Basophils % 0.5 %; Hematocrit 30.6 % (35.3-44.9); Hemoglobin 9.9 g/dL (11.5-15.4); Immature Granulocytes % 1.5 % (0-4); Lymphocytes # 0.3 K/mcL (0.6-4.6); Lymphocytes % 14.8 %; Mean Corpuscular HGB Conc 32.4 g/dL (31.6-35.5); Mean Corpuscular Hemoglobin 29.7 pg (28.0-33.3); Mean Corpuscular Volume 91.9 fL (83.0-100.0); Mean Platelet Volume 11.4 fL (9.4-12.4); Monocytes # 0.2 K/mcL (0.0-1.3); Monocytes % 8.9 %; Neutrophils # 1.5 K/mcL (1.6-8.9); Platelet Count 179 K/mcL (140-400); Red Blood Count 3.33 M/mcL (3.82-4.97); Red Cell Distribution Width 18.8 % (11.5-14.5); Segmented Neutrophils % 74.3 %
[2018-12-09 06:41] LABS: Anisocytosis 1+ (Not Present)
[2018-12-09 06:42] LABS: Platelet Estimate Normal (Normal)
[2018-12-09 06:48] LABS: Calcium 8.5 mg/dL (8.6-10.3)
[2018-12-09] MEDS: ALPRAZolam 0.5 MG TABLET PO PRN (07:28)
[2018-12-09] MEDS: Apixaban 2.5 MG TABLET PO SCH ×2 (07:28→20:09)
[2018-12-09] MEDS: cloNIDine HCl 0.1 MG TABLET PO SCH ×3 (07:28→20:09)
[2018-12-09] MEDS: Fluconazole 100 MG TABLET PO SCH (07:29)
[2018-12-09] MEDS: Diltiazem CD (24hr) 120 MG CAPSULE PO SCH (07:29)
[2018-12-09] MEDS: Gabapentin 100 MG CAPSULE PO SCH ×2 (07:29→20:09)
[2018-12-09] MEDS: hydrALAZINE 25 MG TABLET PO SCH ×3 (07:29→20:09)
[2018-12-09] MEDS: Insulin LISPRO 300 UNITS/3 ML VIAL SQ SCH ×4 (07:45→20:17)
--- NOTE | 2018-12-09 11:31 | Internal Med Progress Note ---
Hospitalist Progress Note - Encounter Date of Encounter: 12/09/18 Time of Encounter: 08:30 - Subjective Interval History: clinically improved overnight, mentation is close to her baseline with HR well controlled. States that her breathing is also better today. No chest pain. No fever overnight. - Exam Vitals: Temp Pulse Resp BP Pulse Ox 98.1 F 117 20 112/55 98 12/09/18 07:20 12/09/18 07:20 12/09/18 07:20 12/09/18 07:20 12/09/18 09:00 Exam: General: Alert, oriented to self and place, appears comfortable Cardiovascular:Normal S1 & S2, No JVD. Normal rate and rhythm today Lungs: scattered rhonchi at the lung bases, only minimal wheezes auscultated Abdomen:Soft, non-tender, no rigidity. Extremities:No deformity or swelling Neurological: Moving all 4 limbs spontaneously - Assessment and Plan (1) HCAP (healthcare-associated pneumonia) Current Visit: Yes Status: Acute Assessment and Plan: Immunocompromised patient on palliative chemotherapy for metastatic colon cancer is admitted for shortness of breath with CT finding of multiple nodular densi ties which could be compatible with pneumonia versus progressive metastatic disease Normal WBC but band of 8% at the OSH ED recently admitted for pneumonia and influenza B infection in mid October MRSA +ve and sputum culture growing S. aureus and GNR. Continue vancomycin/Zosyn Resp viral panel -ve Strep/Legionella antigen pending. bronchodilators, steroid for COPD exacerbation as below (2) Atrial fibrillation with rapid ventricular response Current Visit: Yes Status: Resolved Assessment and Plan: Developed A. fib with RVR on the night of 12/07 likely due to underlying infection troponin 0.04 - 0.05, not consistent with ACS improved with resumption of home meds, cardizem gtt stopped Continue Eliquis (3) Metabolic encephalopathy Current Visit: Yes Status: Resolved Assessment and Plan: Improving mentation likely due to underlying infection, tx as above (4) Lactic acidosis Current Visit: Yes Status: Resolved Assessment and Plan: Likely due to hypoperfusion from poorly controlled heart rate, improved upon normalization of HR CT -ve for ischemic colitis (5) COPD exacerbation Current Visit: Yes Status: Acute Assessment and Plan: Antibiotics as above D3 Steroids, bronchodilators. Resume home inhalers transition to PO Steroid tomorrow (6) Chronic diastolic (congestive) heart failure Current Visit: No Status: Chronic Assessment and Plan: Does not appear to be in exacerbation. Continue to hold lasix, may resume tomorrow if Cr remains stable IVF d/pauline (7) CKD (chronic kidney disease) stage 3, GFR 30-59 ml/min Current Visit: No Status: Chronic Assessment and Plan: Creatinine at baseline, IVF d/pauline Renally dosed antibiotics Avoid nephrotoxins (8) Colon cancer metastasized to liver Current Visit: No Status: Chronic Assessment and Plan: On palliative chemotherapy. Overall poor prognosis (9) Diabetes mellitus Current Visit: Yes Status: Chronic Assessment and Plan: continue to monitor on increased dose of basal-bolus insulin; Levemir 45 units at bedtime and moderate dose sliding scale (10) HTN (hypertension) Current Visit: No Status: Chronic Assessment and Plan: resume home meds (11) Obesity (BMI 30-39.9) Current Visit: No Status: Chronic Assessment and Plan: lifestyle modifications (12) UTI (urinary tract infection) Current Visit: No Status: Suspected Assessment and Plan: incidental finding on urinalysis, pt not symptomatic on abx for PNA as above (13) Goals of care, counseling/discussion Current Visit: Yes Status: Acute (14) DVT prophylaxis Current Visit: Yes Status: Acute Assessment and Plan: Eliquis resumed - Time Spent with Patient Total time spent is greater than 50% in coordination of care (as documented) at patient's floor/unit and/or counseling patient: 25 - 35 minutes Plan of Care Discussed with: patient (discussed with RN) Internal Medicine: Result - Labs CBC & Chem 7: 12/09/18 06:08 12/09/18 06:08 Labs: Short CBC 12/09/18 Range/Units 06:08 WBC 2.0 L (4.3-11.1) K/mcL Hgb 9.9 L (11.5-15.4) g/dL Hct 30.6 L (35.3-44.9) % Plt Count 179 (140-400) K/mcL Neutrophils # 1.5 L (1.6-8.9) K/mcL BMP 12/09/18 06:08 Sodium 137 Potassium 4.0 Chloride 105 Carbon Dioxide 22 L BUN 52 H Creatinine 1.43 H Glucose 163 H Calcium 8.5 L Cardiac Enzymes 12/08/18 Range/Units 16:38 Troponin I 0.05 H* (< 0.04) ng/mL - ABG Interpretation ABG results: PT/INR, D-dimer PT 16.2 Seconds (9.4-12.1) H 12/07/18 07:25 - Impressions Impressions Abdomen/Pelvis CT 12/08/18 11:57 IMPRESSION: 1. Partial colonic resection with dilated fluid-filled bowel distal of the surgical anastomosis extending to the rectum. No associated inflammatory changes. 2. Right middle lobe infiltrate. 3. Right lower lobe bronchiolitis with multiple indeterminate pulmonary nodules measuring up to 5 mm. This is new since September 2018 and potentially relate to postinfectious or inflammatory origin. Metastatic disease is not excluded. Close interval follow-up evaluation recommended to assure resolution. 4. Stable hepatic metastasis. D/ / 12/08/2018 14:17:12 Jim Hartman MD / venkat Interpreting Provider: Jim Hartman MD Consult Discharge Plan - Plan Referrals: NONE,PCP [Primary Care Provider] - (9) Diabetes mellitus Qualifiers: Diabetes mellitus type: type 2 Diabetes mellitus skilled nursing insulin use: without medical terminologist use Diabetes mellitus complication status: with hyperglycemia Qualified Code(s): E11.65 - Type 2 diabetes mellitus with hyperglycemia (10) HTN (hypertension) Qualifiers: Hypertension type: essential hypertension Qualified Code(s): I10 - Essential (primary) hypertension (12) UTI (urinary tract infection) Qualifiers: Urinary tract infection type: acute cystitis Hematuria presence: without h ematuria Qualified Code(s): N30.00 - Acute cystitis without hematuria
[2018-12-09] MEDS ORDERED: Albuterol 2.5 MG/3 ML NEBULIZER IH PRN (14:22)
[2018-12-09] MEDS: Insulin DETEMIR 100 UNIT/ML X5UNITS SQ SCH (20:18)
[2018-12-10] MEDS: MethylPREDNISolone 40 MG/ML VIAL IVP SCH (02:10)
[2018-12-10] MEDS: Piperacillin/Tazobactam 3.375 GM in 0.9 % Sodium Chloride Mini Bag 100 ML IVPB SCH (02:10)
[2018-12-10] MEDS: Levalbuterol Neb 0.63 MG/3 ML IH SCH ×4 (04:22→21:26)
[2018-12-10] MEDS: Insulin LISPRO 300 UNITS/3 ML VIAL SQ SCH ×4 (07:46→21:15)
[2018-12-10] MEDS: hydrALAZINE 25 MG TABLET PO SCH ×3 (07:54→21:18)
[2018-12-10] MEDS: Apixaban 2.5 MG TABLET PO SCH ×2 (07:54→21:18)
[2018-12-10] MEDS: Diltiazem CD (24hr) 120 MG CAPSULE PO SCH (07:54)
[2018-12-10] MEDS: predniSONE 20 MG TABLET PO SCH (07:54)
[2018-12-10] MEDS: cloNIDine HCl 0.1 MG TABLET PO SCH ×3 (07:55→21:18)
[2018-12-10] MEDS: Aspirin Enteric Coated 81 MG Tablet PO SCH (07:55)
[2018-12-10] MEDS: Gabapentin 100 MG CAPSULE PO SCH ×2 (07:55→21:18)
--- NOTE | 2018-12-10 09:11 | Electrocardiograph Report ---
[address] [address] Test Date: 2018-12-08 Pat Name: Katie Hitchcock Department: 112 Room: 2N12 Gender: F Cardiac Specialist: : 1945 Requested By: Shar Vasques Order Number: [id number] Reading MD: Aleksandar Ramirez Measurements Intervals [place] Rate: 136 P: MA: 0 QRS: -5 QRSD: 125 T: 98 QT: 279 QTc: 358 Interpretive Statements ATRIAL FLUTTER/TACHYCARDIA WITH RAPID VENTRICULAR RESPONSE RIGHT BUNDLE BRANCH BLOCK ST CHANGES DUE TO RATE AND/OR ISCHEMIA Electronically Signed On 12-10-2018 9:09:35 EDT by Aleksandar Ramirez
[2018-12-10 10:08] LABS: Mean Corpuscular HGB Conc 32.2 g/dL (31.6-35.5); Red Cell Distribution Width 18.8 % (11.5-14.5)
[2018-12-10 10:10] LABS: Hematocrit 28.3 % (35.3-44.9); Hemoglobin 9.1 g/dL (11.5-15.4); Immature Granulocytes % 4.8 % (0-4); Lymphocytes # 0.2 K/mcL (0.6-4.6); Lymphocytes % 19.2 %; Mean Corpuscular Hemoglobin 29.4 pg (28.0-33.3); Mean Corpuscular Volume 91.6 fL (83.0-100.0); Mean Platelet Volume 11.1 fL (9.4-12.4); Monocytes # 0.2 K/mcL (0.0-1.3); Monocytes % 19.2 %; Neutrophils # 0.6 K/mcL (1.6-8.9); Platelet Count 180 K/mcL (140-400); Red Blood Count 3.09 M/mcL (3.82-4.97); Segmented Neutrophils % 56.8 %
[2018-12-10 10:14] LABS: Calcium 8.2 mg/dL (8.6-10.3); Potassium 3.8 mEq/L (3.5-5.1)
[2018-12-10 10:32] LABS: Platelet Estimate Normal (Normal)
[2018-12-10] MEDS: Fluconazole 100 MG TABLET PO SCH (10:41)
--- NOTE | 2018-12-10 10:59 | Internal Med Progress Note ---
Hospitalist Progress Note - Encounter Date of Encounter: 12/10/18 Time of Encounter: 08:45 - Subjective Interval History: Appears much more comfortable and alert today. Denies any shortness of breath today. No chest pain. She however dose complain of mouth soreness - Exam Vitals: Temp Pulse Resp BP Pulse Ox 99.2 F 73 16 139/62 96 12/10/18 07:16 12/10/18 07:16 12/10/18 10:50 12/10/18 07:16 12/10/18 10:50 Exam: General: Alert, oriented to self and place, appears comfortable Mouth: mild mucositis noted R>L Cardiovascular:Normal S1 & S2, No JVD. Normal rate and rhythm today Lungs: scattered rhonchi at the lung bases with no significant wheezes Abdomen:Soft, non-tender, no rigidity. Extremities:No deformity or swelling Neurological: Moving all 4 limbs spontaneously - Assessment and Plan (1) HCAP (healthcare-associated pneumonia) Current Visit: Yes Status: Acute Assessment and Plan: Immunocompromised patient on palliative chemotherapy for metastatic colon cancer is admitted for shortness of breath with CT finding of multiple nodular densitie s which could be compatible with pneumonia versus progressive metastatic disease Normal WBC but band of 8% at the OSH ED recently admitted for pneumonia and influenza B infection in mid October MRSA screen +ve and sputum culture growing MRSA as well as K.oxytoca. Continue vancomycin but will switch zosyn to Rocephin Resp viral panel -ve Strep/Legionella antigen pending. bronchodilators, steroid for COPD exacerbation as below (2) Atrial fibrillation with rapid ventricular response Current Visit: Yes Status: Resolved Assessment and Plan: Developed A. fib with RVR on the night of 12/07 likely due to underlying infection troponin 0.04 - 0.05, not consistent with ACS improved with resumption of home meds, cardizem gtt stopped Continue Eliquis (3) Metabolic encephalopathy Current Visit: Yes Status: Resolved Assessment and Plan: Improving mentation likely due to underlying infection, tx as above (4) Lactic acidosis Current Visit: Yes Status: Resolved Assessment and Plan: Likely due to hypoperfusion from poorly controlled heart rate, improved upon normalization of HR CT -ve for ischemic colitis (5) COPD exacerbation Current Visit: Yes Status: Acute Assessment and Plan: Antibiotics as above D4 Steroids, bronchodilators. Will transition to PO Prednisone from today Resume home inhalers (6) Chronic diastolic (congestive) heart failure Current Visit: No Status: Chronic Assessment and Plan: Does not appear to be in exacerbation. Cr remains stable now and will resume lasix today (7) CKD (chronic kidney disease) stage 3, GFR 30-59 ml/min Current Visit: No Status: Chronic Assessment and Plan: Creatinine at baseline, will resume lasix today as above Renally dosed antibiotics Avoid nephrotoxins (8) Colon cancer metastasized to liver Current Visit: No Status: Chronic Assessment and Plan: On palliative chemotherapy. Overall poor prognosis Worsening leukopenia noted, ANC 600 consult heme/onc (9) Diabetes mellitus Current Visit: Yes Status: Chronic Assessment and Plan: continue to monitor on increased dose of basal-bolus insulin; Levemir 45 units at bedtime and moderate dose sliding scale (10) HTN (hypertension) Current Visit: No Status: Chronic Assessment and Plan: resume home meds including losartan (11) Obesity (BMI 30-39.9) Current Visit: No Status: Chronic Assessment and Plan: lifestyle modifications (12) UTI (urinary tract infection) Current Visit: No Status: Suspected Assessment and Plan: incidental finding on urinalysis, pt not symptomatic on abx for PNA as above (13) Goals of care, counseling/discussion Current Visit: Yes Status: Acute (14) DVT prophylaxis Current Visit: Yes Status: Acute Assessment and Plan: Eliquis resumed - Time Spent with Patient Total time spent is greater than 50% in coordination of care (as documented) at patient's floor/unit and/or counseling patient: Greater than 35 minutes Plan of Care Discussed with: nurse (Discussed with social problems specialist and oncology) Internal Medicine: Result - Labs CBC & Chem 7: 12/10/18 04:00 12/10/18 04:00 Labs: Short CBC 12/10/18 Range/Units 04:00 WBC 1.0 L* (4.3-11.1) K/mcL Hgb 9.1 L (11.5-15.4) g/dL Hct 28.3 L (35.3-44.9) % Plt Count 180 (140-400) K/mcL Neutrophils # 0.6 L (1.6-8.9) K/mcL BMP 12/10/18 04:00 Sodium 134 L Potassium 3.8 Chloride 105 Carbon Dioxide 23 BUN 49 H Creatinine 1.46 H Glucose 194 H Calcium 8.2 L - ABG Interpretation ABG results: PT/INR, D-dimer PT 16.2 Seconds (9.4-12.1) H 12/07/18 07:25 - Impressions Impressions Abdomen/Pelvis CT 12/08/18 11:57 IMPRESSION: 1. Partial colonic resection with dilated fluid-filled bowel distal of the surgical anastomosis extending to the rectum. No associated inflammatory changes. 2. Right middle lobe infiltrate. 3. Right lower lobe bronchiolitis with multiple indeterminate pulmonary nodules measuring up to 5 mm. This is new since September 2018 and potentially relate to postinfectious or inflammatory origin. Metastatic disease is not excluded. Close interval follow-up evaluation recommended to assure resolution. 4. Stable hepatic metastasis. D/ / 12/08/2018 14:17:12 Jim Hartman MD / venkat Interpreting Provider: Jim Hartman MD Consult Discharge Plan - Plan Referrals: NONE,PCP [Primary Care Provider] - (9) Diabetes mellitus Qualifiers: Diabetes mellitus type: type 2 Diabetes mellitus group home insulin use: without [employer] headgate operator use Diabetes mellitus complication status: with hyperglycemia Qualified Code(s): E11.65 - Type 2 diabetes mellitus with hyperglycemia (10) HTN (hypertension) Qualifiers: Hypertension type: essential hypertension Qualified Code(s): I10 - Essential (primary) hypertension (12) UTI (urinary tract infection) Qualifiers: Urinary tract infection type: acute cystitis Hematuria presence: without hematuria Qualified Code(s): N30.00 - Acute cystitis without hematuria
[2018-12-10] MEDS ORDERED: Magic Mouthwash 10 ML UD Cup PO SCH (11:30)
[2018-12-10] MEDS: Furosemide 40 MG TABLET PO SCH (11:56)
[2018-12-10] MEDS: cefTRIAXone 2,000 MG in Water for inj. (sterile) 20 ML 20 ML IVP SCH (11:56)
[2018-12-10] MEDS: Nystatin SUSP 5 ML UD.LIQ PO SCH ×3 (12:08→21:15)
[2018-12-10] MEDS: Stomatitis Mixture 5 ML UDC PO SCH ×3 (12:08→21:15)
--- NOTE | 2018-12-10 13:59 | Oncology Inp Consult Note ---
<Chayo Alvarado - Last Filed: 12/10/18 16:43> Date of Encounter: 12/10/18 - Data of Consult Requesting Physician: Jairon Cooper MD Primary Care Provider: PCP NONE Medications and Allergies Insulin ASPART [Novolog Flexpen] 15 unit SQ TIDAC MDD + SLIDING SCALE 11/15/15 [History] Hydralazine HCl 100 mg PO TID 11/29/16 [History] ALPRAZolam [Xanax 0.5 MG Tablet] 0.5 mg PO BID PRN 08/08/17 [History] Pravastatin Sodium [Pravachol] 80 mg PO HS 08/08/17 [History] Oxygen 2 l NS PRN PRN 09/22/17 [History] Albuterol Neb [Proventil Neb] 2.5 mg IH Q8H PRN 08/29/18 [History] Albuterol Sulfate [Proair Hfa] 2 puff IH Q6H PRN 08/29/18 [History] Aspirin [Lo-Dose Aspirin EC] 81 mg PO DAILY 08/29/18 [History] Ferrous Sulfate [Iron] 325 mg PO DAILY 08/29/18 [History] Fluticasone Propionate Nasal [Flonase] 1 spray NS DAILY 11/09/18 [History] cloNIDine HCl [Clonidine HCl] 0.3 mg PO TID 11/09/18 [History] Apixaban [Eliquis] 2.5 mg PO BID 11/10/18 [History] Carvedilol [Coreg] 25 mg PO BID 11/10/18 [History] Diltiazem CD (24hr) [Cardizem CD] 120 mg PO DAILY 11/10/18 [History] Dulaglutide [Trulicity] 0.75 mg SQ TH 11/10/18 [History] Gabapentin [Neurontin] 100 mg PO BID 11/10/18 [History] Insulin Degludec [Tresiba Flextouch U-200] 45 - 50 unit SQ HS 11/10/18 [History] [place]-3/Dha/Epa/Fish Oil [Cvs Fish Oil 1,000 mg Softgel] 1 cap PO DAILY 11/10/18 [History] Potassium Chloride 20 meq PO DAILY 11/10/18 [History] Losartan [Cozaar] 100 mg PO DAILY tablet 11/12/18 [Rx] Nitrofurantoin (BID) [Macrobid] 100 mg PO BID #30 capsule 11/30/18 [Rx] Furosemide [Lasix] 40 mg PO DAILY 12/08/18 [History] Lidocaine/Prilocaine CREAM [Emla] 1 appl TP AD 12/09/18 [History] OxyCODONE/APAP 5/325 [Percocet 5/325 MG] 1 tab PO TID PRN 12/09/18 [History] Allergy/AdvReac Type Severity Reaction Status Date / Time Sulfa (Sulfonamide Allergy Severe Swelling Verified 11/30/18 08:51 Antibiotics) of Lip/Tongue/Throat Consult Discharge Plan - Plan Referrals: Geremias Ryan, [Partnered Physician] - 12/19/18 1:00 pm NONE,PCP [Primary Care Provider] - - Attending Attestation I examined this patient and my medical decision-making was reviewed with the Advanced Practice Nurse Julieta Ag. I agree with the documented findings, disposition and treatment plan as described except to the extent set forth below . 1. Recurrent metastatic colon cancer with a biopsy-proven liver metastasis. She is getting irinotecan, 5-FU. Overall she responded CEA down from 49-10 CT abdomen and pelvis 12/08/2018 showed new lung nodules in the right base up to 5 mm. And not sure if it is infectious versus metastasis. Currently no reason to change treatment. We will continue to follow CEA and a repeat CEA today 2. She had a CAT scan at [facility] which showed some pneumonia and she is getting treatment. She had right middle lobe infiltrate and right lower lobe bronchiolitis 3. Pancytopenia from chemotherapy. Hemoglobin 9.1. She is neutropenic at 600. Afebrile. If neutropenia gets worse or if she develops fever would add Neupogen. With subsequent chemotherapy would drop 5-FU bolus which probably contributes to the neutropenia 4. Patient admitted with abdominal pain and this has improved now. She had fluid filled bowel distal to the surgical anastomosis. <Julieta Ag - Last Filed: 12/10/18 17:28> Date of Encounter: 12/10/18 Time of Encounter: 12:30 Assessment and Plan (1) Colon cancer metastasized to liver Status: Chronic Assessment and plan: Metastatic colon cancer Received palliative chemotherapy with FOLFIRI + Avastin Last received on 11/30/18 As expected from irinotecan and 5FU, WBC/neutrophil count have decreased. Irinotecan calin is 14-16 days with a recovery in 21-28 days Fluorouracil (5FU) calin is 9-14 days, with a recovery in 21-28 days. Plan: Hold chemotherapy until acute issues resolve. 12/10/18: ANC 600 Monitor CBC with differential daily. Continue antibiotics for pneumonia/uti Neutropenic precautions Hold Neupogen at this time. Patient is hemodynamically stable and afebrile since admission. May consider dose-reduction or Neulasta for future cycles. (2) CAP (community acquired pneumonia) Status: Acute Assessment and plan: Sputum culture: MRSA + Klebsiella Oxytoca + CT abomen and pelvis without contrast (12/08/18) Noted discrete nodules within the right lower lobe, measuring 5mm Concern for infectious/inflammatory reaction vs new metastases. Nodules not identified on September 2018 CT. Plan: Continue antibiotics per primary team. Vancomycin (renal dosing as indicated for CKD 3) Qualifiers: Laterality: left Lung location: unspecified part of lung Qualified Cod e(s): J18.9 - Pneumonia, unspecified organism (3) CKD (chronic kidney disease) stage 3, GFR 30-59 ml/min Status: Chronic Assessment and plan: CKD, stage 3 12/10/18: BUN 49, creatinine 1.46, estimated GFR 35 Plan: Continue renal dosing Avoid nephrotoxic medications. (4) Atrial fibrillation Status: Chronic Assessment and plan: History of atrial fibrillation Eliquis 2.5 mg PO BID per cardiology (Dr. Ashton) Hemoglobin stable at 9.1 Denies hematuria, hematochezia, melena, or epistaxis Plan: Telemetry Continue Eliquis per home routine. Qualifiers: Atrial fibrillation type: paroxysmal Qualified Code(s): I48.0 - Paroxysmal atrial fibrillation - Data of Consult Patient: known to practice within the last 3 years Requesting Physician: Jairon Cooper MD Primary Care Provider: PCP NONE - Consult Narrative Reason for consult: metastatic colon cancer, neutropenia History of present illness: Oncology History: History of present illness Deconditioning on a wheelchair. Most source of improved after emergency room visit 11/25/2018. She is treated with mouthwash and antiviral type medication No painful urination. Appetite okay. No fever chills. Appetite is poor. Exertional shortness of breath. No chest pain Diagnosis: Stage I colon cancer 2 synchronous primaries Endoscopy by Dr. Schaefer on 11/17/2015. Her endoscopy showed 3 lesions within the colon. 2 malignant appearing lesions, one within the ascending colon, and one within the transverse colon. She also had a polypoid lesion in her descending colon. The polypoid lesion in the descending colon was approximately 20 mm and resected and retrieved. The other 2 lesions were biopsied and tattooed. colectomy on 11/27/2015. Pathology demonstrated two T2N0 (0/10)M0 adenocarcinomas. Subsequently had a colonoscopy March [address] Hester showed transverse colon hyperplastic polyp MSI normal on 10/28/2016 Subsequently she had recurrence of colon cancer which was metastatic to liver Colonoscopy 05/04/2018 which revealed an 8cm ulcerating non-obstructing large oval shaped mass in the transverse colon about 7 cm distal to previous ileocolonic anastomosis. On 05/09/18 Robotic splenic flexure takedown, transverse colectomy, and lysis of adhesions, Small bowel resection, Exploratory laparotomy, Robotic wedge liver resection. Recovering well from surgical standpoint, she has had return of bowel function. Surgical Pathology:8 cm tumor invasive adenocarcinoma: grade 2 margins proximal and distal negative but positive circumferential margin. No perineural in vasion. Indeterminate for lymphovascular invasion. 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 MRI abdomen w/wo rcc protocol on 10/18/16 shows increased size of a 4.1cm x 3.4cm x 3.4cm exophytic mass arising from the posterior upper pole of the left kidney. This has increased from previous MRI She had left nephrectomy with Dr. Posada on 11/29/2016. Tumor size 4 cm. Scar grade 4. T1a, PNX, MX. Margins clear. 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 No extension to underlying structures. This lesion was excised by Dr. 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 One of the margin was close within 1 mm. 04/04/2017 Re-excision by Dr. Zamarripa at [facility]- Pathology indicated negative for sarcoma. She continued to have wound healing problems and has a wound vacuum 04/11/2017- CT chest without contrast from [facility]: few scattered small punctate nodules are indeterminate. (continue f/u imaging). Small L supraventricular node (attention on next f/u). Mild cardiomegaly. Pulmonary trunk mildly dilated which can be seen in pulmonary hypertension. Further imaging CT chest abdomen and pelvis without Contrast 07/31/2017 showed stable 5 mm lung nodules compared to previous CAT scan dating back to 11/17/2015. New 3 mm left upper lobe nodule Abdomen showed increase fats stranding at the ileocolonic anastomotic area. Colonoscopy Last colonoscopy March 2016 Dr. Hester showed small polyp otherwise negative. I am not sure if ileocolonic anastomosis was visualized. HPI: Katie, a 73yo female with known history of metastatic colon cancer, was transferred from [facility] ED due to the concern of pneumonia and urinary tract infection. Katie notes that she was having right flank/abdominal pain and mouth sores after her last chemotherapy. She follows with Dr. Alvarado at [facility] and last received Cycle 10 FOLFIRI + Avastin on 11/30/18. At that time, her ANC was 1200 and had a low-grade temperature of 99.2. She was offered to delay her chemotherapy, but denied feeling sick and chose to proceed with her treatment. She denies fever or chills at home. Per documentation, she did have a fever at [facility]. She does note that she would have an intermittent cough before her admission along with right flank pain. Denies dyspnea or orthopnea. She notes that her right flank pain has improved. Workup showed normal white blood cell count but band of 8%, elevated CRP, and CT showing multifocal nodular densities in bilateral upper lobes and right lower lobe which could be compatible with pneumonia or progressive metastatic disease. Her urinalysis was also positive for nitrite and trace leukocyte esterase. Katie notes that she has been having difficulty with recurrent UTI's. She was started on vancomycin/Zosyn and transferred to [facility] for further management. She remains afebrile and VS stable. She did have an episode of atrial flutter with RVR on 12/08/18, but HR now 60-80 on telemetry. Medical history includes metastatic, recurrent colon cancer, renal cell carcinoma status post nephrectomy with resultant CKD, hypertension, diabetes, oxygen dependent COPD, atrial fibrillation on Eliquis, soft tissue sarcoma. Past Med Surg Social Fam HX - Past Medical History Medical history: arthritis, asthma, atrial fibrillation, cancer, CHF, COPD, coronary artery disease, diabetes, hyperlipidemia, hypertension, myocardial infarction, venous stasis, other Additional medical history: Sleep apnea, Osteoporosis, Liver lesions, Pneumonia, UTI, type II diabetes Psychiatric history: anxiety, depression - Past Surgical History Surgical History: angioplasty/stent, cholecystectomy, colectomy, coronary bypass (CABG), other Additional surgical history: Left nephrectomy- 2016, Excision of RLE mass 2017, colon resection,2-stents during heart cath - Social History Smoking Status: Never smoker Smokeless Tobacco Status: No Alcohol use: none Drug use: none - Family History Father Family Member Ethnicity: Non- Living Status: Hx Family Cardiac Disorders: Yes ( of MS) Hx Family Respiratory Disorders: No Hx Family Cancer: No Hx Family GI Disorders: No Hx Family Endocrine Disorder: No Hx Family Neuromuscular Disorders: No Hx Family Neurologic Disorders: No Hx Family HEENT Disorders: No Hx Family Autoimmune Disorders: No Brother Family Member Ethnicity: Non- Living Status: Hx Family Cancer: Yes (Throat) Sister Family Member Ethnicity: Non- Living Status: Still Living Hx Family Respiratory Disorders: Yes (Emphysema) Hx Family Cancer: Yes (Breast) Mother Family Member Ethnicity: Non- Living Status: Hx Family Cardiac Disorders: No Hx Family Respiratory Disorders: Yes (asthma) Hx Family Cancer: Yes Hx Family GI Disorders: No Hx Family Endocrine Disorder: No Hx Family Neuromuscular Disorders: No Hx Family Neurologic Disorders: No Hx Family HEENT Disorders: No Hx Family Autoimmune Disorders: No Constitutional: Present: fatigue. Absent: chills, fever(s), headache(s), night sweats Cardiovascular: Present: leg edema. Absent: chest pain, dyspnea, palpitations, rapid heart rate Respiratory: Present: cough. Absent: dyspnea, wheezing, excessive phlegm production Gastrointestinal: Present: abdominal pain. Absent: constipation, diarrhea, heartburn, hematochezia, melena, nausea, vomiting Neurological: Absent: focal weakness, frequent falls Psychiatric: Present: anxiety Oncology - Exam - Constitutional General appearance: cooperative, obese - Head Head exam: Present: normal inspection, normocephalic - Expanded ENT Exam Mouth exam: Present: dry mucosa Throat exam: Present: normal inspection - Neck Neck exam: Absent: lymphadenopathy, tenderness - Respiratory Respiratory exam: Present: decreased breath sounds. Absent: rales, respiratory distress, wheezes - Cardiovascular Cardiovascular exam: Present: irregular rhythm Additional comments: rate-controlled, 70 - GI/Abdominal GI/Abdominal exam: Present: normal bowel sounds, soft. Absent: tenderness - Extremities Exam Extremities exam: Present: pedal edema, tenderness Additional comments: LLE wound- covered with small amount of serous drainage noted. - Psychiatric Psychiatric exam: Present: normal affect, normal mood - Skin Skin exam: Present: dry, pallor, warm Oncology Inpatient Results Labs: Laboratory Results - last 24 hr 12/09/18 12/09/18 12/09/18 07:33 11:35 16:30 WBC RBC Hgb Hct MCV MCH MCHC RDW Plt Count MPV Immature Gran % Seg Neutrophils % Lymphocytes % Monocytes % Eosinophils % Basophils % Neutrophils # Lymphocytes # Monocytes # Eosinophils # Basophils # Platelet Estimate Sodium Potassium Chloride Carbon Dioxide BUN Creatinine Est GFR ( Amer) Est GFR (Non-Af Amer) BUN/Creatinine Ratio Glucose POC Glucose 143 H 183 H 240 H Calculated Osmolality Calcium Random Vancomycin 12/09/18 12/10/18 12/10/18 20:16 04:00 04:00 WBC 1.0 L* RBC 3.09 L Hgb 9.1 L Hct 28.3 L MCV 91.6 MCH 29.4 MCHC 32.2 RDW 18.8 H Plt Count 180 MPV 11.1 Immature Gran % 4.8 H Seg Neutrophils % 56.8 Lymphocytes % 19.2 Monocytes % 19.2 Eosinophils % 0.0 Basophils % 0.0 Neutrophils # 0.6 L Lymphocytes # 0.2 L Monocytes # 0.2 Eosinophils # 0.0 Basophils # 0.0 Platelet Estimate Normal Sodium Potassium Chloride Carbon Dioxide BUN Creatinine Est GFR ( Amer) Est GFR (Non-Af Amer) BUN/Creatinine Ratio Glucose POC Glucose 226 H Calculated Osmolality Calcium Random Vancomycin 14 12/10/18 12/10/18 04:00 11:23 WBC RBC Hgb Hct MCV MCH MCHC RDW Plt Count MPV Immature Gran % Seg Neutrophils % Lymphocytes % Monocytes % Eosinophils % Basophils % Neutrophils # Lymphocytes # Monocytes # Eosinophils # Basophils # Platelet Estimate Sodium 134 L Potassium 3.8 Chloride 105 Carbon Dioxide 23 BUN 49 H Creatinine 1.46 H Est GFR ( Amer) 42 L Est GFR (Non-Af Amer) 35 L BUN/Creatinine Ratio 34 H Glucose 194 H POC Glucose 200 H Calculated Osmolality 296 Calcium 8.2 L Random Vancomycin Head CT 12/08/18 03:21 IMPRESSION: 1. No acute intracranial abnormality. 2. Unchanged chronic findings as above. 3. Paranasal sinus disease with possible superimposed acute sinusitis, worse on the right. D/ / Jesu Roberts MD / Jesu Roberts MD Interpreting Provider: Jesu Roberts MD Abdomen/Pelvis CT 12/08/18 11:57 IMPRESSION: 1. Partial colonic resection with dilated fluid-filled bowel distal of the surgical anastomosis extending to the rectum. No associated inflammatory changes. 2. Right middle lobe infiltrate. 3. Right lower lobe bronchiolitis with multiple indeterminate pulmonary nodules measuring up to 5 mm. This is new since September 2018 and potentially relate to postinfectious or inflammatory origin. Metastatic disease is not excluded. Close interval follow-up evaluation recommended to assure resolution. 4. Stable hepatic metastasis. D/ / 12/08/2018 14:17:12 Jim Hartman MD / venkat Interpreting Provider: Jim Hartman MD Inpatient Charges Provider: Dr. Merna Alvarado Consult - Inpatient: [id number]
[2018-12-10] MEDS ORDERED: *HR* Alteplase (Cathflo) 2 MG VIAL IVP ONE (18:31)
[2018-12-10] MEDS: Insulin DETEMIR 100 UNIT/ML X5UNITS SQ SCH (21:18)
[2018-12-11] MEDS: Levalbuterol Neb 0.63 MG/3 ML IH SCH ×4 (03:54→21:24)
[2018-12-11] MEDS: Insulin LISPRO 300 UNITS/3 ML VIAL SQ SCH ×4 (07:57→21:05)
[2018-12-11] MEDS: Fluconazole 100 MG TABLET PO SCH (08:01)
[2018-12-11] MEDS: Nystatin SUSP 5 ML UD.LIQ PO SCH ×3 (08:02→16:18)
[2018-12-11] MEDS: Apixaban 2.5 MG TABLET PO SCH ×2 (08:02→21:05)
[2018-12-11] MEDS: Aspirin Enteric Coated 81 MG Tablet PO SCH (08:02)
[2018-12-11] MEDS: hydrALAZINE 25 MG TABLET PO SCH ×3 (08:02→21:04)
[2018-12-11] MEDS: cloNIDine HCl 0.1 MG TABLET PO SCH ×3 (08:02→21:04)
[2018-12-11] MEDS: Furosemide 40 MG TABLET PO SCH (08:02)
[2018-12-11] MEDS: predniSONE 20 MG TABLET PO SCH (08:02)
[2018-12-11] MEDS: Diltiazem CD (24hr) 120 MG CAPSULE PO SCH (08:02)
[2018-12-11] MEDS: Stomatitis Mixture 5 ML UDC PO SCH ×4 (08:02→21:05)
[2018-12-11] MEDS: Gabapentin 100 MG CAPSULE PO SCH ×2 (08:02→21:04)
[2018-12-11 08:09] LABS: Hematocrit 28.8 % (35.3-44.9); Hemoglobin 9.2 g/dL (11.5-15.4); Lymphocytes # 0.4 K/mcL (0.6-4.6); Mean Corpuscular HGB Conc 31.9 g/dL (31.6-35.5); Mean Corpuscular Volume 93.8 fL (83.0-100.0); Monocytes # 0.4 K/mcL (0.0-1.3); Nucleated Red Blood Cells 1.2 /100 WBC (0); Platelet Count 178 K/mcL (140-400); Red Blood Count 3.07 M/mcL (3.82-4.97)
[2018-12-11 08:26] LABS: Calcium 8.5 mg/dL (8.6-10.3); Magnesium 2.2 mg/dL (1.6-2.6); Potassium 3.4 mEq/L (3.5-5.1)
[2018-12-11] MEDS ORDERED: Vancomycin 500 MG in 0.9 % Sodium Chloride Mini Bag 100 ML IVPB ONE (09:17)
[2018-12-11] MEDS: cefTRIAXone 2,000 MG in Water for inj. (sterile) 20 ML 20 ML IVP SCH (10:00)
[2018-12-11 12:03] LABS: Neutrophils # 0.9 K/mcL (1.6-8.9)
[2018-12-11 12:06] LABS: Platelet Estimate Normal (Normal)
--- NOTE | 2018-12-11 15:20 | Oncology Inp Progress Note ---
<Chayo Alvarado S - Last Filed: 12/11/18 16:24> Date of Encounter: 12/11/18 Time of Encounter: 16:24 Oncology: Obj Data - Labs CBC & Chem 7: 12/11/18 07:04 12/11/18 07:04 Consult Discharge Plan - Plan Referrals: Geremias Ryan DO [Partnered Physician] - 12/19/18 1:00 pm Inpatient Charges Provider: Dr. Merna Alvarado Follow up - Inpatient: [id number] - Attending Attestation I examined this patient and my medical decision-making was reviewed with the Advanced Practice Nurse Sindhu sewell. I agree with the documented findings, disposition and treatment plan as described except to the extent set forth below. 1. Neutropenia improving. Neutrophil count 900 and she received 1 dose of Neupogen 300 g. She also has some mucositis. 2. Pneumonia. Getting treatment. Sputum grew MRSA and Klebsiella species. She has bronchiolitis and subcentimeter Right lung nodules. CEA trending down currently 8 on 12/10/2018 indicating the lung nodules are most likely inflammatory We will continue to follow that is 3. Recurrent chronic UTI. On 11/25/2018 she grew MRSA and enterococcus faecalis. Both sensitive Macrobid. She is on a 3 day regimen of nitrofurantoin every 2 weeks to minimize recurrent UTI. As an inpatient she is getting vancomycin and Rocephin IV <Sindhu Sewell L - Last Filed: 12/11/18 17:55> Date of Encounter: 12/11/18 (1) CAP (community acquired pneumonia) Current Visit: No Status: Acute Assessment and plan: Sputum culture: MRSA + Klebsiella Oxytoca + CT abomen and pelvis without contrast (12/08/18) Noted discrete nodules within the right lower lobe, measuring 5mm Concern for infectious/inflammatory reaction vs new metastases. Nodules not identified on September 2018 CT. Plan: Continue antibiotics per primary team. Vancomycin (renal dosing as indicated for CKD 3) Treatment for COPD exacerbation ordered per hospitalist Qualifiers: Laterality: left Lung location: unspecified part of lung Qualified Code(s): J18.9 - Pneumonia, unspecified organism (2) Colon cancer metastasized to liver Current Visit: No Status: Chronic Assessment and plan: Metastatic colon cancer Received palliative chemotherapy with FOLFIRI + Avastin Last received on 11/30/18 Plan: Hold chemotherapy until acute issues resolve. With subsequent chemotherapy would drop 5-FU bolus which probably contributes to the neutropenia CT abdomen and pelvis 12/08/2018 showed new lung nodules in the right base up to 5 mm. And not sure if it is infectious versus metastasis. Currently no reason to change treatment per treating oncologist CEA 12/11/2018 resulted 8.2 (3) Neutropenia Current Visit: Yes Status: Acute Assessment and plan: As expected from irinotecan and 5FU, WBC/neutrophil count have decreased. Irinotecan calin is 14-16 days with a recovery in 21-28 days Fluorouracil (5FU) calin is 9-14 days, with a recovery in 21-28 days. Plan: With subsequent chemotherapy would drop 5-FU bolus which probably contributes to the neutropenia 12/10/18: ANC 600 ANC improved to 900 today Monitor CBC with differential daily. Continue antibiotics for pneumonia/uti May discontinue Neutropenic precautions Status post 1 dose Neupogen this morning Hold Neupogen at this time. Patient is hemodynamically stable and afebrile since admission with improving white blood cell count, therefore no need for Neupogen at this time Qualifiers: Neutropenia type: due to infection Qualified Code(s): D70.3 - Neutropenia due to infection (4) Mucositis Current Visit: Yes Status: Acute Assessment and plan: Continues to report significant mucositis symptoms Plan: Continue stomatitis mixture and fungal coverage with diflucan Added valtrex renally dosed and carafate Expect symptoms to improve now that neutropenia is improving Oncology: Subj Interval history: Patient resting comfortably, no acute events noted overnight. O2 sats normal on room air. Watching western movies with her daughter at bedside. She denies pain but continues to complain of mucositis-like symptoms with pain to her oral cavity. She denies headache, visual changes, shortness of breath, chest pain, nausea, vomiting, abdominal pain. - Constitutional General appearance: cooperative, no acute distress, no febrile - Head Head exam: Present: atraumatic - ENT ENT exam: Present: mucous membranes moist, normal oropharynx - Respiratory Respiratory exam: Present: CTAB. Absent: respiratory distress - Cardiovascular Cardiovascular exam: Present: RRR - GI/Abdominal GI/Abdominal exam: Present: normal bowel sounds, soft. Absent: tenderness - Extremities Exam Extremities exam: Present: normal inspection. Absent: calf tenderness - Neurological Exam Neurological exam: Present: alert, oriented X3, no focal deficits, strengths equal and symetr throughout - Psychiatric Psychiatric exam: Present: normal affect, normal mood - Skin Skin exam: Present: dry, intact, normal color, warm Oncology: Obj Data - Labs CBC & Chem 7: 12/11/18 07:04 12/11/18 07:04 Inpatient Charges Provider: Dr. Merna Alvarado
--- NOTE | 2018-12-11 16:12 | Internal Med Progress Note ---
Hospitalist Progress Note - Encounter Date of Encounter: 12/11/18 Time of Encounter: 16:10 - Subjective Interval History: Patient seen and examined at bedside. Patient states that she feels pretty good. She feels like her breathing is improved. Denies any fevers or chills. She does feel somewhat weak - Exam Vitals: Temp Pulse Resp BP Pulse Ox 97.4 F L 76 18 161/73 97 12/11/18 16:03 12/11/18 16:03 12/11/18 16:03 12/11/18 16:03 12/11/18 16:03 Exam: Gen.: Alert and oriented 3. Appears chronically ill Heart: Irregularly irregular, no murmurs, rubs, gallops Lungs: Clear to auscultation bilaterally, wheezes - Assessment and Plan (1) HCAP (healthcare-associated pneumonia) Current Visit: Yes Status: Acute Assessment and Plan: Patient has evidence of multiple nodular densities possibly related to underlying pneumonia. Sputum cultures positive for MRSA and Klebsiella oxytoca. Clinically appears to be improving, afebrile, white count improved. Continue vancomycin and Rocephin. (2) Neutropenia Current Visit: Yes Status: Acute Assessment and Plan: Patient has had worsening of her neutropenia, ANC is 900 today which is improved from yesterday. Patient received 1 dose of Neupogen this morning per oncology. Likely related to infection in the setting of current chemotherapy. Further management per oncology. (3) Diabetes mellitus Current Visit: Yes Status: Chronic Assessment and Plan: Blood sugars under good control. Continue Levemir and sliding scale insulin. Continue monitor blood sugars and adjust as necessary. (4) CKD (chronic kidney disease) stage 3, GFR 30-59 ml/min Current Visit: No Status: Chronic Assessment and Plan: Creatinine at baseline. Continue to monitor renal function. (5) HTN (hypertension) Current Visit: No Status: Chronic Assessment and Plan: Blood sugar under good control. Continue home medications. (6) Colon cancer metastasized to liver Current Visit: No Status: Chronic Assessment and Plan: Patient follows with oncology. Plan to hold chemotherapy during his acute illness. Plan outpatient follow-up. Appreciate oncology recommendations. (7) Chronic diastolic (congestive) heart failure Current Visit: No Status: Chronic Assessment and Plan: Stable. No evidence of fluid overload. No evidence of acute heart failure. Co ntinue home Lasix 40 mg by mouth daily (8) COPD exacerbation Current Visit: Yes Status: Acute Assessment and Plan: Mild. Secondary to pneumonia. Overall appears improved. Continue antibiotics, bronchodilators, prednisone 40 mg daily, today is day 2 of steroids, we will treat for a total of 5 days. (9) Atrial fibrillation with rapid ventricular response Current Visit: Yes Status: Chronic Assessment and Plan: Abdomen ventricular response has resolved. Rate controlled. Continue metoprolol and Cardizem. Continue Eliquis for anticoagulation (10) Metabolic encephalopathy Current Visit: Yes Status: Resolved Assessment and Plan: Resolved. (11) Obesity (BMI 30-39.9) Current Visit: No Status: Chronic (12) DVT prophylaxis Current Visit: Yes Status: Acute Assessment and Plan: Currently on Eliquis - Time Spent with Patient Total time spent is greater than 50% in coordination of care (as documented) at patient's floor/unit and/or counseling patient: Internal Medicine: Result - Labs CBC & Chem 7: 12/11/18 07:04 12/11/18 07:04 Labs: Short CBC 12/11/18 Range/Units 07:04 WBC 1.7 L D (4.3-11.1) K/mcL Hgb 9.2 L (11.5-15.4) g/dL Hct 28.8 L (35.3-44.9) % Plt Count 178 (140-400) K/mcL Neutrophils # 0.9 L (1.6-8.9) K/mcL BMP 12/11/18 07:04 Sodium 137 Potassium 3.4 L Chloride 106 Carbon Dioxide 22 L BUN 45 H Creatinine 1.45 H Glucose 124 H Calcium 8.5 L - ABG Interpretation ABG results: PT/INR, D-dimer PT 16.2 Seconds (9.4-12.1) H 12/07/18 07:25 Consult Discharge Plan - Plan Referrals: Geremias Ryan DO [Partnered Physician] - 12/19/18 1:00 pm (2) Neutropenia Qualifiers: Neutropenia type: due to infection Qualified Code(s): D70.3 - Neutropenia due to infection (3) Diabetes mellitus Qualifiers: Diabetes mellitus type: type 2 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
[2018-12-11] MEDS: ALPRAZolam 0.5 MG TABLET PO PRN (16:17)
[2018-12-11] MEDS: valACYclovir 500 MG TABLET PO SCH (21:05)
[2018-12-11] MEDS: Sucralfate 1 GM TABLET PO SCH (21:05)
[2018-12-11] MEDS: Insulin DETEMIR 100 UNIT/ML X5UNITS SQ SCH (21:06)
[2018-12-11] MEDS: *HR* OxyCODONE Immed Rel 5 MG TABLET PO PRN (21:10)
[2018-12-12] MEDS: ALPRAZolam 0.5 MG TABLET PO PRN (01:49)
[2018-12-12] MEDS: *HR* HYDROcodone/Acet 5/325 mg TABLET PO PRN (01:49)
[2018-12-12] MEDS: Levalbuterol Neb 0.63 MG/3 ML IH SCH ×4 (04:00→21:28)
[2018-12-12] MEDS: *HR* Metoprolol 5 MG/5 ML VIAL IVP PRN (05:23)
[2018-12-12 08:54] LABS: Hemoglobin 9.9 g/dL (11.5-15.4); Mean Corpuscular HGB Conc 31.9 g/dL (31.6-35.5); Mean Corpuscular Hemoglobin 29.7 pg (28.0-33.3); Mean Corpuscular Volume 93.1 fL (83.0-100.0); Mean Platelet Volume 11.6 fL (9.4-12.4); Nucleated Red Blood Cells 1.3 /100 WBC (0); Platelet Count 166 K/mcL (140-400); Red Blood Count 3.33 M/mcL (3.82-4.97); Red Cell Distribution Width 19.2 % (11.5-14.5)
[2018-12-12] MEDS: Diltiazem CD (24hr) 120 MG CAPSULE PO SCH (09:07)
[2018-12-12] MEDS: Sucralfate 1 GM TABLET PO SCH ×4 (09:08→20:54)
[2018-12-12] MEDS: cloNIDine HCl 0.1 MG TABLET PO SCH ×3 (09:09→20:54)
[2018-12-12] MEDS: predniSONE 20 MG TABLET PO SCH (09:09)
[2018-12-12] MEDS: Fluconazole 100 MG TABLET PO SCH (09:09)
[2018-12-12] MEDS: valACYclovir 500 MG TABLET PO SCH (09:09)
[2018-12-12] MEDS: Insulin LISPRO 300 UNITS/3 ML VIAL SQ SCH ×4 (09:10→20:53)
[2018-12-12] MEDS: Apixaban 2.5 MG TABLET PO SCH ×2 (09:10→20:54)
[2018-12-12] MEDS: hydrALAZINE 25 MG TABLET PO SCH ×3 (09:10→20:55)
[2018-12-12] MEDS: Aspirin Enteric Coated 81 MG Tablet PO SCH (09:11)
[2018-12-12 09:13] LABS: Calcium 8.6 mg/dL (8.6-10.3); Potassium 3.4 mEq/L (3.5-5.1)
[2018-12-12 09:19] LABS: Anisocytosis 1+ (Not Present); Lymphocytes # 1.4 K/mcL (0.6-4.6); Monocytes # 1.3 K/mcL (0.0-1.3); Neutrophils # 6.2 K/mcL (1.6-8.9); Platelet Estimate Normal (Normal)
[2018-12-12] MEDS: Furosemide 40 MG TABLET PO SCH (09:19)
[2018-12-12] MEDS: Gabapentin 100 MG CAPSULE PO SCH ×2 (09:19→20:55)
[2018-12-12] MEDS: Stomatitis Mixture 5 ML UDC PO SCH ×4 (09:19→20:55)
[2018-12-12] MEDS ORDERED: Diltiazem SR (12hr) 60 MG CAPSULE PO ONE (09:50)
[2018-12-12 11:14] LABS: ABG Base Excess -4 mEq/L (-2 to 3); ABG HCO3 20 mEq/L (21-27); ABG Oxygen Saturation 95 % (95-98); ABG PCO2 30 mmHg (35-45); ABG PH 7.42 pH Units (7.32-7.45); ABG PO2 70 mmHg (85-104); ABG TCO2 21 mEq/L (20-26)
[2018-12-12] MEDS: cefTRIAXone 2,000 MG in Water for inj. (sterile) 20 ML 20 ML IVP SCH (14:23)
--- NOTE | 2018-12-12 15:48 | Internal Med Progress Note ---
Hospitalist Progress Note - Encounter Date of Encounter: 12/12/18 Time of Encounter: 15:47 - Subjective Interval History: Patient seen and examined at bedside. Patient will wake up to verbal stimuli but seems lethargic and altered. She is alert and oriented to person only. She does not appear to be in acute distress. She does not verbalize any complaints today. - Exam Vitals: Temp Pulse Resp BP Pulse Ox 97.4 F L 118 18 108/98 93 12/12/18 11:00 12/12/18 11:00 12/12/18 11:00 12/12/18 11:00 12/12/18 11:00 Exam: Gen.: Alert and oriented 1. Appears chronically ill Heart: Irregularly irregular, no murmurs, rubs, gallops Lungs: Clear to auscultation bilaterally, wheezes - Assessment and Plan (1) Metabolic encephalopathy Current Visit: Yes Status: Acute Assessment and Plan: the patient was awake and alert and was able to discuss the plan of care with me and we had a sung discussion regarding possible alf placement. Today the patient is extremely lethargic and is alert and oriented to person only. Etiology unclear. ABG obtained and shows no hypercapnia, sugar was mildly low earlier but at the time of her altered mental status her sugar was normal. Possibly related to infection however clinically after infection is improving on her antibiotics and given her culture results she is on appropriate coverage. I am concerned that this is a progression of her chronic illness including metastatic colon cancer. We will continue close monitoring. (2) HCAP (healthcare-associated pneumonia) Current Visit: Yes Status: Acute Assessment and Plan: Patient has evidence of multiple nodular densities possibly related to underlying pneumonia. Sputum cultures positive for MRSA and Klebsiella oxytoca. Clinically appears to be improving, afebrile, white count improved. Continue vancomycin and Rocephin for a total of 7 days. (3) Neutropenia Current Visit: Yes Status: Acute Assessment and Plan: ANC much improved today. Discussed with oncology, no further need for Neupogen. (4) Diabetes mellitus Current Visit: Yes Status: Chronic Assessment and Plan: Blood sugars under good control. She did have an episode of hypoglycemia today, will decrease nighttime Levemir to 25 units nightly. Continue monitor blood sugars and adjust as necessary. (5) CKD (chronic kidney disease) stage 3, GFR 30-59 ml/min Current Visit: No Status: Chronic Assessment and Plan: Creatinine at baseline. Continue to monitor renal function. (6) HTN (hypertension) Current Visit: No Status: Chronic Assessment and Plan: Blood sugar under good control. Continue home medications. (7) Colon cancer metastasized to liver Current Visit: No Status: Chronic Assessment and Plan: Patient follows with oncology. Plan to hold chemotherapy during his acute illness. Plan outpatient follow-up. Appreciate oncology recommendations. (8) Chronic diastolic (congestive) heart failure Current Visit: No Status: Chronic Assessment and Plan: Stable. No evidence of fluid overload. No evidence of acute heart failure. Continue home Lasix 40 mg by mouth daily (9) COPD exacerbation Current Visit: Yes Status: Acute Assessment and Plan: Mild. Secondary to pneumonia. Overall appears improved. Continue antibiotics, bronchodilators, prednisone 40 mg daily, today is day 3 of steroids, we will t reat for a total of 5 days. (10) Atrial fibrillation with rapid ventricular response Current Visit: Yes Status: Chronic Assessment and Plan: Patient is persistently tachycardic this morning. Heart rate in the 120s to 130s. We will increase Cardizem. Continue Eliquis for anticoagulation (11) Obesity (BMI 30-39.9) Current Visit: No Status: Chronic (12) DVT prophylaxis Current Visit: Yes Status: Acute Assessment and Plan: Currently on Eliquis - Time Spent with Patient Total time spent is greater than 50% in coordination of care (as documented) at patient's floor/unit and/or counseling patient: Internal Medicine: Result - Labs CBC & Chem 7: 12/12/18 08:20 12/12/18 08:20 Labs: Short CBC 12/12/18 Range/Units 08:20 WBC 8.9 D (4.3-11.1) K/mcL Hgb 9.9 L (11.5-15.4) g/dL Hct 31.0 L (35.3-44.9) % Plt Count 166 (140-400) K/mcL Neutrophils # 6.2 (1.6-8.9) K/mcL BMP 12/12/18 08:20 Sodium 133 L Potassium 3.4 L Chloride 103 Carbon Dioxide 21 L BUN 39 H Creatinine 1.20 Glucose 61 L Calcium 8.6 - ABG Interpretation ABG results: ABG ABG pH 7.42 pH Units (7.32-7.45) 04/17/19 11:11 ABG pCO2 30 mmHg (35-45) L 12/12/18 11:11 ABG pO2 70 mmHg (85-104) L 12/12/18 11:11 ABG O2 Saturation 95 % (95-98) 12/12/18 11:11 PT/INR, D-dimer PT 16.2 Seconds (9.4-12.1) H 12/07/18 07:25 Consult Discharge Plan - Plan Referrals: Geremias Ryan DO [Partnered Physician] - 12/19/18 1:00 pm (3) Neutropenia Qualifiers: Neutropenia type: due to infection Qualified Code(s): D70.3 - Neutropenia due to infection (4) Diabetes mellitus Qualifiers: Diabetes mellitus type: type 2 Diabetes mellitus [facility] insulin use: without oyster buyer use Diabetes mellitus complication status: with hyperglycemia Qualified Code(s): E11.65 - Type 2 diabetes mellitus with hyperglycemia (6) HTN (hypertension) Qualifiers: Hypertension type: essential hypertension Qualified Code(s): I10 - Essential (primary) hypertension
--- NOTE | 2018-12-12 16:38 | Oncology Inp Progress Note ---
<Chayo Alvarado S - Last Filed: 12/12/18 17:15> Date of Encounter: 12/12/18 Time of Encounter: 17:15 Oncology: Obj Data - Labs CBC & Chem 7: 12/12/18 08:20 12/12/18 08:20 Consult Discharge Plan - Plan Referrals: Geremias Ryan DO [Partnered Physician] - 12/19/18 1:00 pm Inpatient Charges Provider: Dr. Merna Alvarado Follow up - Inpatient: [id number] - Attending Attestation I examined this patient and my medical decision-making was reviewed with the Advanced Practice Nurse Sindhu mena. I agree with the documented findings, disposition and treatment plan as described except to the extent set forth below. 1. Acute mental status change overnight. We will check serum ammonia level. Could be metabolic encephalopathy versus hospital-induced delirium. If she does not improve in the next one or 2 days May consider MRI brain 2. Metastatic colon cancer with multiple liver lesion. Overall CEA decreasing currently 8.2 3. Admitted with right middle lobe pneumonia right lower lobe bronchiolitis with small nodule likely inflammatory. 5. Sepsis the MRI in the sputum and Klebsiella. She is getting vancomycin and Rocephin. She also has recurrent UTI which should be covered by these antibiotics. I am not sure if sepsis is contributing to some of her mental status change 5. Neutropenia has resolved. Neutrophil count improved to 6400. 6. Mucositis. She is on Diflucan. Added Valtrex 1 g every 12 hours by mouth yesterday. HOG RINGER side effects like delirium and confusion have been reported with Valtrex and elderly. We will stop that for now. GI consult for possible EGD because of ongoing mucositis and pain with swallowing <Sindhu Mena L - Last Filed: 12/12/18 18:23> Date of Encounter: 12/12/18 (1) CAP (community acquired pneumonia) Current Visit: No Status: Acute Assessment and plan: Sputum culture: MRSA + Klebsiella Oxytoca + CT abomen and pelvis without contrast (12/08/18) Noted discrete nodules within the right lower lobe, measuring 5mm Concern for infectious/inflammatory reaction vs new metastases. Nodules not cherelle ntified on September 2018 CT. Plan: Continue antibiotics per primary team-vanc and rocephin Vancomycin (renal dosing as indicated for CKD 3) Treatment for COPD exacerbation ordered per hospitalist Qualifiers: Laterality: left Lung location: unspecified part of lung Qualified Code(s): J18.9 - Pneumonia, unspecified organism (2) Colon cancer metastasized to liver Current Visit: No Status: Chronic Assessment and plan: Metastatic colon cancer Palliative chemotherapy with FOLFIRI + Avastin Last dose on 11/30/18 Plan: Hold chemotherapy until acute issues resolve. With subsequent chemotherapy would drop 5-FU bolus which probably contributes to the neutropenia CT abdomen and pelvis 12/08/2018 showed new lung nodules in the right base up to 5 mm. And not sure if it is infectious versus metastasis. Currently no reason to change treatment per treating oncologist CEA 12/11/2018 resulted 8.2, supporting that new lung nodules are most likely of infectious etiology (3) Neutropenia Current Visit: Yes Status: Acute Assessment and plan: As expected from irinotecan and 5FU, WBC/neutrophil count have decreased. Irinotecan calin is 14-16 days with a recovery in 21-28 days Fluorouracil (5FU) calin is 9-14 days, with a recovery in 21-28 days. Plan: With subsequent chemotherapy would drop 5-FU bolus which probably contributes to the neutropenia 12/10/18: ANC 600, 900 (12/12/18), 6,200 today Status post 1 dose Neupogen 12/11/2018 Neutropenia now resolved Qualifiers: Neutropenia type: due to infection Qualified Code(s): D70.3 - Neutropenia due to infection (4) Mucositis Current Visit: Yes Status: Acute Assessment and plan: Continues to report significant mucositis symptoms Plan: Symptoms not improved Continue stomatitis mixture and fungal coverage with diflucan Added carafate Expect symptoms to improve now that neutropenia is improving Consult GI for EGD (5) Metabolic encephalopathy Current Visit: Yes Status: Acute Assessment and plan: Acute changes noted as of yesterday Lethargic today and oriented to person and place only Etiology unclear, ABG normal, blood sugar was noted to be mildly low earlier today but normal at time of noted alteration This could be secondary to sepsis/infection although infection clinical improving on appropriate treatment Plan: Etiology unclear but may be secondary to valtrex (has known HOG RINGER side effects in elderly) which was started last evening vs. hospital induced-STOP valtrex Check ammonia Consider brain MRI if symptoms do not improve Oncology: Subj Interval history: Ms. Hitchcock is sitting up in bed. Daughter at bedside. She continues to report oral pain/odynophagia. Denies pain otherwise. She is alert but appears to be confused and somewhat lethargic today. This is a change from yesterday. She is oriented only to person and place. Daughter at bedside state that her mentation has actually somewhat improved from this morning. - Constitutional General appearance: cooperative, no acute distress, no febrile - Head Head exam: Present: atraumatic - ENT ENT exam: Present: mucous membranes moist, normal oropharynx - Respiratory Respiratory exam: Present: decreased breath sounds, CTAB. Absent: respiratory distress - Cardiovascular Cardiovascular exam: Present: RRR - GI/Abdominal GI/Abdominal exam: Present: normal bowel sounds, soft. Absent: tenderness - Extremities Exam Extremities exam: Present: normal inspection. Absent: calf tenderness Additional comments: wound with gauze wrapping to left ankle - Neurological Exam Neurological exam: Present: alert, CN II-XII intact, no focal deficits, strengths equal and symetr throughout. Absent: facial droop, speech deficit Additional comments: oriented to person and place, follows commands but needs redirection often - Psychiatric Psychiatric exam: Present: flat affect - Skin Skin exam: Present: dry, intact, normal color, warm Oncology: Obj Data - Labs CBC & Chem 7: 12/12/18 08:20 12/12/18 08:20 Inpatient Charges Provider: Dr. Merna Alvarado
[2018-12-12] MEDS: Insulin DETEMIR 100 UNIT/ML X5UNITS SQ SCH (20:55)
[2018-12-13] MEDS: Levalbuterol Neb 0.63 MG/3 ML IH SCH ×4 (03:51→22:32)
[2018-12-13 07:29] LABS: Hematocrit 28.8 % (35.3-44.9); Hemoglobin 9.3 g/dL (11.5-15.4); Mean Corpuscular HGB Conc 32.3 g/dL (31.6-35.5); Mean Corpuscular Hemoglobin 30.3 pg (28.0-33.3); Mean Corpuscular Volume 93.8 fL (83.0-100.0); Mean Platelet Volume 11.5 fL (9.4-12.4); Nucleated Red Blood Cells 0.9 /100 WBC (0); Platelet Count 113 K/mcL (140-400); Red Blood Count 3.07 M/mcL (3.82-4.97); Red Cell Distribution Width 19.6 % (11.5-14.5)
[2018-12-13 07:44] LABS: Calcium 8.5 mg/dL (8.6-10.3); Magnesium 1.9 mg/dL (1.6-2.6); Potassium 3.6 mEq/L (3.5-5.1)
[2018-12-13 07:59] LABS: Lymphocytes # 0.9 K/mcL (0.6-4.6); Monocytes # 1.7 K/mcL (0.0-1.3)
[2018-12-13 08:00] LABS: Platelet Estimate Slight Decrease (Normal)
[2018-12-13 08:01] LABS: Anisocytosis 1+ (Not Present)
[2018-12-13] MEDS ORDERED: Aminoglycoside Consult 1 EACH MC ONE (08:40)
[2018-12-13] MEDS ORDERED: Diltiazem CD (24hr) 180 MG CAPSULE PO SCH (09:00)
[2018-12-13] MEDS: Stomatitis Mixture 5 ML UDC PO SCH ×4 (09:58→22:33)
[2018-12-13] MEDS: Insulin LISPRO 300 UNITS/3 ML VIAL SQ SCH ×4 (09:58→22:47)
[2018-12-13] MEDS: Fluconazole 100 MG TABLET PO SCH (09:59)
[2018-12-13] MEDS: Furosemide 40 MG TABLET PO SCH (09:59)
[2018-12-13] MEDS: cloNIDine HCl 0.1 MG TABLET PO SCH ×2 (09:59→18:09)
[2018-12-13] MEDS: Apixaban 2.5 MG TABLET PO SCH (09:59)
[2018-12-13] MEDS: Sucralfate 1 GM TABLET PO SCH ×3 (09:59→18:09)
[2018-12-13] MEDS: predniSONE 20 MG TABLET PO SCH (10:00)
[2018-12-13] MEDS: Aspirin Enteric Coated 81 MG Tablet PO SCH (10:00)
[2018-12-13] MEDS: Gabapentin 100 MG CAPSULE PO SCH (10:00)
[2018-12-13] MEDS: hydrALAZINE 25 MG TABLET PO SCH ×2 (10:00→18:09)
[2018-12-13] MEDS ORDERED: Diltiazem SR (12hr) 60 MG CAPSULE PO ONE (11:15)
[2018-12-13] MEDS: cefTRIAXone 2,000 MG in Water for inj. (sterile) 20 ML 20 ML IVP SCH (12:39)
--- NOTE | 2018-12-13 13:17 | Oncology Inp Progress Note ---
Date of Encounter: 12/13/18 Time of Encounter: 13:00 (1) CAP (community acquired pneumonia) Current Visit: No Status: Acute Assessment and plan: Sputum culture: MRSA + Klebsiella Oxytoca + CT abomen and pelvis without contrast (12/08/18) Noted discrete nodules within the right lower lobe, measuring 5mm Concern for infectious/inflammatory reaction vs new metastases. Nodules not identified on September 2018 CT. Plan: Continue antibiotics per primary team-vanc and rocephin Vancomycin (renal dosing as indicated for CKD 3) Treatment for COPD exacerbation ordered per hospitalist Qualifiers: Laterality: left Lung location: unspecified part of lung Qualified Code(s): J18.9 - Pneumonia, unspecified organism (2) Colon cancer metastasized to liver Current Visit: No Status: Chronic Assessment and plan: Metastatic colon cancer Palliative chemotherapy with FOLFIRI + Avastin Last dose on 11/30/18 Plan: Hold chemotherapy until acute issues resolve. With subsequent chemotherapy would drop 5-FU bolus which probably contributes to the neutropenia CT abdomen and pelvis 12/08/2018 showed new lung nodules in the right base up to 5 mm. And not sure if it is infectious versus metastasis. Currently no reason to change treatment per treating oncologist CEA 12/11/2018 resulted 8.2, supporting that new lung nodules are most likely of infectious etiology (3) Neutropenia Current Visit: Yes Status: Resolved Assessment and plan: As expected from irinotecan and 5FU, WBC/neutrophil count have decreased. Irinotecan calin is 14-16 days with a recovery in 21-28 days Fluorouracil (5FU) calin is 9-14 days, with a recovery in 21-28 days. Plan: Now resolved, her luekocytosis is likely secondary to neupogen With subsequent chemotherapy would drop 5-FU bolus which probably contributes to the neutropenia 12/10/18: ANC 600, 900 (12/12/18), 6,200 today Status post 1 dose Neupogen 12/11/2018 Qualifiers: Neutropenia type: due to infection Qualified Code(s): D70.3 - Neutropenia due to infection (4) Mucositis Current Visit: Yes Status: Acute Assessment and plan: Continues to report significant mucositis symptoms Plan: Symptoms not improved Continue stomatitis mixture and fungal coverage with diflucan Added carafate Expect symptoms to improve now that neutropenia is improving Consult GI for EGD---planning on tomorrow 4/19 (5) Metabolic encephalopathy Current Visit: Yes Status: Acute Assessment and plan: Acute changes noted as of yesterday Lethargic today and oriented to person and place only Etiology unclear, ABG normal, blood sugar was noted to be mildly low earlier today but normal at time of noted alteration This could be secondary to sepsis/infection although infection clinically improving on appropriate treatment Plan: Now improving Etiology unclear but may have been secondary to valtrex with symptoms starting shortly after first dose and now improving after stopping (has known SHOER side effects in elderly) vs. hospital induced Oncology: Subj Interval history: Patient is sitting up in bed. Her daughters at bedside. She appears to be alert and oriented today. Continues to be somewhat drowsy but much improved dictation in comparison to yesterday. She is responding to questions appropriately. She continues to report odynophagia and oral pain. This is worse with eating and drinking. She denies headache, visual changes, dizziness, chest pain, shortness of breath, urinary or bowel complaint. - Constitutional General appearance: cooperative, no acute distress, no febrile - Head Head exam: Present: atraumatic - ENT ENT exam: Present: mucous membranes moist, normal oropharynx - Respiratory Respiratory exam: Present: CTAB. Absent: respiratory distress - Cardiovascular Cardiovascular exam: Present: RRR, +S1, +S2 - GI/Abdominal GI/Abdominal exam: Present: normal bowel sounds, soft. Absent: tenderness - Extremities Exam Extremities exam: Present: normal inspection. Absent: calf tenderness - Neurological Exam Neurological exam: Present: alert, oriented X3, no focal deficits, strengths equal and symetr throughout - Psychiatric Psychiatric exam: Present: normal affect, normal mood - Skin Skin exam: Present: dry, intact, normal color, warm Oncology: Obj Data - Labs CBC & Chem 7: 12/14/18 05:20 12/14/18 07:15 Consult Discharge Plan - Plan Referrals: Geremias Ryan DO [Partnered Physician] - 12/19/18 1:00 pm Inpatient Charges Provider: Sindhu Mena CNP Follow up - Inpatient: [id number]
[2018-12-13] MEDS: *HR* HYDROcodone/Acet 5/325 mg TABLET PO PRN (13:38)
--- NOTE | 2018-12-13 15:46 | Internal Med Progress Note ---
Hospitalist Progress Note - Encounter Date of Encounter: 12/13/18 Time of Encounter: 15:44 - Subjective Interval History: Patient seen and examined at bedside. Patient much more awake and alert today. She still answering somewhat slowly but is able to interact and discussed her care. She reports pain in her left lower extremity that is chronic for her. She feels like her breathing and cough improved. - Exam Vitals: Temp Pulse Resp BP Pulse Ox 98.0 F 75 20 123/61 92 12/13/18 11:43 12/13/18 11:43 12/13/18 11:43 12/13/18 11:43 12/13/18 11:43 Exam: Gen.: Alert and oriented 3. Appears chronically ill Heart: Irregularly irregular, no murmurs, rubs, gallops Lungs: Clear to auscultation bilaterally, no rales, rhonchi, wheezes. - Assessment and Plan (1) Mucositis Current Visit: Yes Status: Acute Assessment and Plan: Etiology unclear, may be related to chemotherapy treatments versus infectious. Oncology is consulted GI and plan for upper endoscopy tomorrow. (2) Metabolic encephalopathy Current Visit: Yes Status: Acute Assessment and Plan: Much improved today. Etiology unclear. May be related to Valtrex was started by oncology, this is been discontinued. (3) HCAP (healthcare-associated pneumonia) Current Visit: Yes Status: Acute Assessment and Plan: Patient has evidence of multiple nodular densities possibly related to underlying pneumonia. Sputum cultures positive for MRSA and Klebsiella oxytoca. Clinically appears to be improving, afebrile, white count improved. Continue vancomycin and Rocephin for a total of 7 days. (4) Neutropenia Current Visit: Yes Status: Resolved Assessment and Plan: Blood cell count was normalized and actually little on the high side, likely rebound effect from Neupogen treatments. (5) Diabetes mellitus Current Visit: Yes Status: Chronic Assessment and Plan: Blood sugars under good control. No hypoglycemic episodes noted. Continue monitor blood sugars and adjust as necessary. (6) CKD (chronic kidney disease) stage 3, GFR 30-59 ml/min Current Visit: No Status: Chronic Assessment and Plan: Creatinine at baseline. Continue to monitor renal function. (7) HTN (hypertension) Current Visit: No Status: Chronic Assessment and Plan: Blood sugar under good control. Continue home medications. (8) Colon cancer metastasized to liver Current Visit: No Status: Chronic Assessment and Plan: Patient follows with oncology. Plan to hold chemotherapy during his acute illness. Plan outpatient follow-up. Appreciate oncology recommendations. (9) Chronic diastolic (congestive) heart failure Current Visit: No Status: Chronic Assessment and Plan: Stable. No evidence of fluid overload. No evidence of acute heart failure. Continue home Lasix 40 mg by mouth daily (10) COPD exacerbation Current Visit: Yes Status: Acute Assessment and Plan: Mild. Secondary to pneumonia. Overall appears improved. Continue antibiotics, bronchodilators, prednisone 40 mg daily, today is day 4 of steroids, we will treat for a total of 5 days. (11) Atrial fibrillation with rapid ventricular response Current Visit: Yes Status: Chronic Assessment and Plan: Her rate under better control today. Patient seems to be tolerating increased dose of Cardizem well. Continue Cardizem 180 mg daily hold Eliquis for planned procedure tomorrow. (12) Obesity (BMI 30-39.9) Current Visit: No Status: Chronic Assessment and Plan: lifestyle modifications (13) DVT prophylaxis Current Visit: Yes Status: Acute Assessment and Plan: Currently on Eliquis - Time Spent with Patient Total time spent is greater than 50% in coordination of care (as documented) at patient's floor/unit and/or counseling patient: Internal Medicine: Result - Labs CBC & Chem 7: 12/13/18 07:11 12/13/18 07:11 Labs: Short CBC 12/13/18 Range/Units 07:11 WBC 11.8 H (4.3-11.1) K/mcL Hgb 9.3 L (11.5-15.4) g/dL Hct 28.8 L (35.3-44.9) % Plt Count 113 L (140-400) K/mcL Neutrophils # 9.0 H (1.6-8.9) K/mcL BMP 12/13/18 07:11 Sodium 132 L Potassium 3.6 Chloride 103 Carbon Dioxide 22 L BUN 34 H Creatinine 1.16 Glucose 240 H Calcium 8.5 L - ABG Interpretation ABG results: ABG ABG pH 7.42 pH Units (7.32-7.45) 12/12/18 11:11 ABG pCO2 30 mmHg (35-45) L 12/12/18 11:11 ABG pO2 70 mmHg (85-104) L 12/12/18 11:11 ABG O2 Saturation 95 % (95-98) 12/12/18 11:11 PT/INR, D-dimer PT 16.2 Seconds (9.4-12.1) H 12/07/18 07:25 Consult Discharge Plan - Plan Referrals: Geremias Ryan DO [Partnered Physician] - 12/19/18 1:00 pm (4) Neutropenia Qualifiers: Neutropenia type: due to infection Qualified Code(s): D70.3 - Neutropenia due to infection (5) Diabetes mellitus Qualifiers: Diabetes mellitus type: type 2 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
[2018-12-13] MEDS ORDERED: *HR* Midazolam HCl 5 MG/5 ML VIAL IVP ONE ×2 (18:26→18:49)
[2018-12-13] MEDS ORDERED: *HR* FentaNYL (PF) 100 MCG/2 ML VIAL ONE (18:26)
[2018-12-13] MEDS ORDERED: Simethicone 40 MG/0.6 ML MLS IR ONE (18:49)
[2018-12-13] MEDS ORDERED: *HR* FentaNYL (PF) 100 MCG/2 ML VIAL IVP ONE (18:49)
[2018-12-13] MEDS ORDERED: Tetracaine/Benzocaine/Butamben 1 SPRAY AEROSOL MM ONE (18:49)
--- NOTE | 2018-12-13 18:49 | Pre-Sedation Evaluation ---
Pre-sedation evaluation - Pre-sedation checklist Date of procedure: 12/13/18 Procedure: port Recent Vitals: Last Vital Signs Temp 98.0 F 12/13/18 11:43 Pulse 72 12/13/18 16:37 Resp 17 12/13/18 16:37 BP 134/68 12/13/18 16:37 Pulse Ox 93 12/13/18 16:37 H&P (including ROS) documented in medical record: Yes Previous reaction to sedatives/anesthetics: No Dietary Status: NPO after Midnight Dentition: No loose teeth or bridges ASA Classification *see protocol: CLASS III-Severe systemic disease
[2018-12-13] MEDS: Insulin DETEMIR 100 UNIT/ML X5UNITS SQ SCH (22:44)
[2018-12-14] MEDS: Apixaban 2.5 MG TABLET PO SCH ×2 (03:08→22:34)
[2018-12-14] MEDS: Sucralfate 1 GM TABLET PO SCH ×5 (03:09→22:34)
[2018-12-14] MEDS: Gabapentin 100 MG CAPSULE PO SCH ×3 (03:10→22:34)
[2018-12-14] MEDS: cloNIDine HCl 0.1 MG TABLET PO SCH ×4 (03:50→22:43)
[2018-12-14] MEDS: hydrALAZINE 25 MG TABLET PO SCH ×4 (03:51→22:43)
[2018-12-14] MEDS: Levalbuterol Neb 0.63 MG/3 ML IH SCH ×4 (04:23→22:16)
[2018-12-14] MEDS: *HR* Metoprolol 5 MG/5 ML VIAL IVP PRN (04:59)
[2018-12-14 06:04] LABS: Hematocrit 33.1 % (35.3-44.9); Mean Corpuscular HGB Conc 33.2 g/dL (31.6-35.5); Mean Corpuscular Hemoglobin 30.4 pg (28.0-33.3); Mean Corpuscular Volume 91.4 fL (83.0-100.0); Mean Platelet Volume 12.8 fL (9.4-12.4); Nucleated Red Blood Cells 1.3 /100 WBC (0); Platelet Count 164 K/mcL (140-400); Red Blood Count 3.62 M/mcL (3.82-4.97); Red Cell Distribution Width 19.6 % (11.5-14.5)
[2018-12-14 06:23] LABS: BUN/Creatinine Ratio 28 (6-26); Blood Urea Nitrogen 29 mg/dL (8-23); Carbon Dioxide 19 mEq/L (23-29); Chloride 101 mEq/L (98-107); Glucose 215 mg/dL (70-105); Osmolality,Calculated 292 (280-300); Potassium 3.5 mEq/L (3.5-5.1); Sodium 135 mEq/L (136-145); eGFR For Non-African Americans 53 (> 60)
[2018-12-14 06:46] LABS: Anisocytosis 1+ (Not Present); Lymphocytes # 4.4 K/mcL (0.6-4.6); Monocytes # 1.1 K/mcL (0.0-1.3); Neutrophils # 11.7 K/mcL (1.6-8.9); Platelet Estimate Normal (Normal)
--- NOTE | 2018-12-14 07:07 | Event Note ---
Date of Encounter: 12/14/18 Time of Encounter: 06:20 Rapid response called by patient's nurse for sudden onset confusion and slurred speech. Upon the time I entered the patient's room nurses were at bedside talking with the patient. She was answering questions inappropriately, stating at one point that she thought the year was 1902. She appeared to have no focal deficits however. Upon my evaluation patient was asking to hold someone's hand. I asked the patient for her name, birthdate, and time of year and the patient correctly answered these questions. She followed commands well, equal and symmetrical strength bilaterally. Cranial nerves intact. I ordered stat labs to be added to blood work that was already drawn including CMP, Lactic acid and troponin. EKG showed atrial fibrillation with RVR. She was given 2.5mg of lopressor for this. Stat head CT was also ordered. Labs and imaging results pending at time of this note. I spoke with the patient's day team physician as well to follow up on the studies. Patient in no acute distress throughout this process.
[2018-12-14 07:53] LABS: Alanine Aminotransferase 13 Units/L (7-52); Albumin 3.1 g/dL (3.5-5.7); Albumin/Globulin Ratio 1.2 (1.1-2.2); Alkaline Phosphatase 137 Units/L (34-104); Aspartate Amino Transferase 21 Units/L (13-39); BUN/Creatinine Ratio 30 (6-26); Bilirubin,Total 0.6 mg/dL (0.3-1.0); Blood Urea Nitrogen 28 mg/dL (8-23); Calcium 8.9 mg/dL (8.6-10.3); Carbon Dioxide 22 mEq/L (23-29); Chloride 101 mEq/L (98-107); Globulin 2.5 g/dL (2.4-3.5); Glucose 176 mg/dL (70-105); Osmolality,Calculated 292 (280-300); Sodium 136 mEq/L (136-145); Total Protein 5.6 g/dL (6.4-8.9); eGFR For Non-African Americans 58 (> 60)
[2018-12-14] MEDS ORDERED: Diltiazem CD (24hr) 240 MG CAPSULE PO SCH (09:00)
[2018-12-14] MEDS: Fluconazole 100 MG TABLET PO SCH (09:05)
[2018-12-14] MEDS: Diltiazem CD (24hr) 180 MG CAPSULE PO SCH (09:05)
[2018-12-14] MEDS: Furosemide 40 MG TABLET PO SCH (09:05)
[2018-12-14] MEDS: Stomatitis Mixture 5 ML UDC PO SCH ×4 (09:06→22:35)
[2018-12-14] MEDS: Aspirin Enteric Coated 81 MG Tablet PO SCH (09:06)
[2018-12-14] MEDS: Insulin LISPRO 300 UNITS/3 ML VIAL SQ SCH ×4 (09:17→22:28)
--- NOTE | 2018-12-14 10:49 | Gastroenterology Consult Note ---
<Juan RamonJesu Hoskins - Last Filed: 12/14/18 10:47> Date of Encounter: 12/14/18 Time of Encounter: 08:50 - Assessment and plan (1) Mucositis Current Visit: Yes Status: Acute Assessment and plan: Etiology unclear. EGD completed 12/13/2018 with small amount of food in stomach otherwise normal. Continue stomatitis mixture and Carafate. (2) Colon cancer metastasized to liver Current Visit: No Status: Chronic Assessment and plan: Management per Oncology. - Time Spent With Patient Total time spent is greater than 50% in coordination of care (as documented) at patient's floor/unit and/or counseling patient: GI History of Present Illness - Data of Consult Patient: known to practice within the last 3 years Consult date: 12/14/18 Requesting Physician: Jesu Dhillon, - Consult Narrative Reason for consult: Mucositis History of present illness: Ms. Hitchcock is a 73 year old female with PMHx of metastatic colon cancer to lungs and liver, RCC status post nephrectomy with resultant CKD, Afib, CHF, CAD, DM, HLD, HTN who was transferred from [facility] ED due to the concern of pneumonia and urinary tract infection. Patient was neutropenic due to chemotherapy which has improved with Neupogen. CT A/P showed discrete nodules within the right lower lobe, measuring 5mm, concern for infectious/inflammatory reaction vs new metastases. Patient complained of mucositis symptoms which was worse with eating or drinking. She denies chest pain, shortness of breath, abdominal pain, nausea, or vomiting. We were consulted to evaluate odynophagia. She was started on stomatitis mixture, Carafate, and Diflucan. Patient was sitting in chair and eating breakfast without difficulties this morning. She denied any pain with swallowing. Procedures: Colonoscopy 05/04/2018 Dr. Schaefer: At least high-grade dysplasia, canno t rule out invasive adenocarcinoma in the transverse colon, internal hemorrhoids. Small bowel enteroscopy 05/01/2018 Dr. Schaefer: Gastritis. EGD 04/16/2018 Dr. Hester: Normal. Colonoscopy 10/19/2017 Dr. Hester: Normal. Colonoscopy 03/28/2016 Dr. Hester: 2 mm per plastic polyp in transverse colon. Colonoscopy 11/17/2015 Dr. Schaefer: Tumor in the proximal ascending colon/transverse colon consistent with invasive adenocarcinoma, polypoid lesion in the descending colon, tubular adenoma/tubulovillous adenoma in the descending colon. EGD 11/17/2015 Dr. Schaefer: Hiatal hernia, Clarke's esophagus. NSAIDs: ASA Anticoagulation: Eliquis Past Med Surg Social Fam HX - Past Medical History Medical history: arthritis, asthma, atrial fibrillation, cancer, CHF, COPD, coronary artery disease, diabetes, hyperlipidemia, hypertension, myocardial infarction, venous stasis, other Additional medical history: Sleep apnea, Osteoporosis, Liver lesions, Pneumonia, UTI, type II diabetes Psychiatric history: anxiety, depression - Past Surgical History Surgical History: angioplasty/stent, cholecystectomy, colectomy, coronary bypass (CABG), other Additional surgical history: Left nephrectomy- 2017, Excision of RLE mass 2017, colon resection,2-stents during heart cath - Social History Smoking Status: Never smoker Smokeless Tobacco Status: No Alcohol use: none Drug use: none - Family History Father Family Member Ethnicity: Non- Living Status: Hx Family Cardiac Disorders: Yes ( of [place]) Hx Family Respiratory Disorders: No Hx Family Cancer: No Hx Family GI Disorders: No Hx Family Endocrine Disorder: No Hx Family Neuromuscular Disorders: No Hx Family Neurologic Disorders: No Hx Family HEENT Disorders: No Hx Family Autoimmune Disorders: No Brother Family Member Ethnicity: Non- Living Status: Hx Family Cancer: Yes (Throat) Sister Family Member Ethnicity: Non- Living Status: Still Living Hx Family Respiratory Disorders: Yes (Emphysema) Hx Family Cancer: Yes (Breast) Mother Family Member Ethnicity: Non- Living Status: Hx Family Cardiac Disorders: No Hx Family Respiratory Disorders: Yes (asthma) Hx Family Cancer: Yes Hx Family GI Disorders: No Hx Family Endocrine Disorder: No Hx Family Neuromuscular Disorders: No Hx Family Neurologic Disorders: No Hx Family HEENT Disorders: No Hx Family Autoimmune Disorders: No - Gastrointestinal Gastrointestinal: Present: as per HPI - Constitutional Constitutional: as per HPI - EENT Eyes: as per HPI Ears: Present: as per HPI Nose, mouth and throat: Present: as per HPI - Cardiovascular Cardiovascular ROS: Present: as per HPI - Respiratory Respiratory IM: Present: as per HPI - Genitourinary Genitourinary: Absent: change in color, Urinary frequency - Neurological ROS Neurological GI: Present: as per HPI - Hematologic/Lymphatic Hematologic/Lymphatic pediatric: Present: as per HPI - Musculoskeletal Musculoskeletal ROS GI: Present: as per HPI - Integumentary Integumentary GI: Present: as per HPI - Psychiatric ROS Psychiatric GI: Present: as per HPI - Endocrine Endocrine IM: Present: as per HPI - Constitutional Vitals: Temp Pulse Resp BP Pulse Ox 97.9 F 144 18 161/96 96 12/14/18 08:18 12/14/18 08:18 12/14/18 08:18 12/14/18 08:18 12/14/18 08:18 General appearance: Present: cooperative, no acute distress, answers questions appropriately - Head Head exam: Present: atraumatic, normocephalic - Eye Eye exam: Present: normal appearance, sclera anicteric - ENT ENT exam: Present: mucous membranes moist - Neck Neck exam general surgery: Present: normal inspection, trachea midline - Respiratory Respiratory exam: Present: decreased breath sounds, CTAB. Absent: rales, rhonchi - Cardiovascular Cardiovascular exam: Present: RRR, +S1, +S2 - GI/Abdominal GI/Abdominal exam: Present: soft, no peritoneal signs. Absent: distended, firm, guarding, tenderness - Rectal Rectal exam: Present: deferred - Extremities Exam Extremities exam: Present: warm - Neurological Exam Neurological exam: Present: altered (She would answer questions appropriately, but could not remember she spoke to her daughter this morning.) - Psychiatric Psychiatric exam: Present: normal affect, normal mood - Skin Skin exam: Present: dry, intact, normal color, warm Results - Labs CBC & Chem 7: 12/14/18 05:20 12/14/18 07:15 Labs: Last Result Calcium 8.9 mg/dL (8.6-10.3) 12/14/18 07:15 Troponin I 0.06 ng/mL (< 0.04) H* 12/14/18 07:15 Entire Visit Hgb 11.0 g/dL (11.5-15.4) L D 12/14/18 05:20 Hct 33.1 % (35.3-44.9) L 12/14/18 05:20 PT 16.2 Seconds (9.4-12.1) H 12/07/18 07:25 Total Bilirubin 0.6 mg/dL (0.3-1.0) 12/14/18 07:15 AST 21 Units/L (13-39) 12/14/18 07:15 ALT 13 Units/L (7-52) 12/14/18 07:15 Ammonia 45 mcmol/L (16-53) 12/12/18 17:25 Carcinoembryonic Ag 8.2 ng/mL (Less than 5.0) H 12/10/18 17:28 - ABG ABG results: ABG ABG pH 7.42 pH Units (7.32-7.45) 12/12/18 11:11 ABG pCO2 30 mmHg (35-45) L 12/12/18 11:11 ABG pO2 70 mmHg (85-104) L 12/12/18 11:11 ABG O2 Saturation 95 % (95-98) 12/12/18 11:11 PT/INR, D-dimer PT 16.2 Seconds (9.4-12.1) H 12/07/18 07:25 - Impressions Impressions Head CT 12/14/18 06:35 IMPRESSION: 1. No acute intracranial abnormality. 2. Cerebral parenchymal volume loss with chronic microvascular white matter ischemic disease. 3. Improved paranasal sinus disease with residual thickened secretions in the right maxillary sinus, concerning for acute sinusitis. D/ / 12/14/2018 08:36:37 Alvin Walters MD / mague Interpreting Provider: Alvin Walters MD Brain MRI 12/14/18 08:55 IMPRESSION: No acute intracranial abnormality. D/ / David Hunt MD / David Hunt MD Interpreting Provider: David Hunt MD Consult Discharge Plan - Plan Referrals: Geremias Ryan DO [Partnered Physician] - 12/19/18 1:00 pm <Nunu Schaefer - Last Filed: 12/14/18 13:14> Date of Encounter: 12/13/18 Time of Encounter: 18:00 - Time Spent With Patient Total time spent is greater than 50% in coordination of care (as documented) at patient's floor/unit and/or counseling patient: GI History of Present Illness - Data of Consult Requesting Physician: Jesu Dhillon, - Consult Narrative History of present illness: Ms. Hitchcock is a 73 year old female - Constitutional Vitals: Temp Pulse Resp BP Pulse Ox 97.9 F 70 16 105/56 96 12/14/18 08:18 12/14/18 12:08 12/14/18 12:08 12/14/18 12:08 12/14/18 12:08 Results - Labs CBC & Chem 7: 12/14/18 05:20 12/14/18 07:15 Labs: Last Result Calcium 8.9 mg/dL (8.6-10.3) 12/14/18 07:15 Troponin I 0.06 ng/mL (< 0.04) H* 12/14/18 07:15 Entire Visit Hgb 11.0 g/dL (11.5-15.4) L D 12/14/18 05:20 Hct 33.1 % (35.3-44.9) L 12/14/18 05:20 PT 16.2 Seconds (9.4-12.1) H 12/07/18 07:25 Total Bilirubin 0.6 mg/dL (0.3-1.0) 12/14/18 07:15 AST 21 Units/L (13-39) 12/14/18 07:15 ALT 13 Units/L (7-52) 12/14/18 07:15 Ammonia 45 mcmol/L (16-53) 12/12/18 17:25 Carcinoembryonic Ag 8.2 ng/mL (Less than 5.0) H 12/10/18 17:28 - ABG ABG results: ABG ABG pH 7.42 pH Units (7.32-7.45) 12/12/18 11:11 ABG pCO2 30 mmHg (35-45) L 12/12/18 11:11 ABG pO2 70 mmHg (85-104) L 12/12/18 11:11 ABG O2 Saturation 95 % (95-98) 12/12/18 11:11 PT/INR, D-dimer PT 16.2 Seconds (9.4-12.1) H 12/07/18 07:25 - Impressions Impressions Head CT 12/14/18 06:35 IMPRESSION: 1. No acute intracranial abnormality. 2. Cerebral parenchymal volume loss with chronic microvascular white matter ischemic disease. 3. Improved paranasal sinus disease with residual thickened secretions in the right maxillary sinus, concerning for acute sinusitis. D/ / 12/14/2018 08:36:37 Alvin Walters MD / bcarter Interpreting Provider: Alvin Walters MD Brain MRI 12/14/18 08:55 IMPRESSION: No acute intracranial abnormality. D/ / 12/14/2018 10:55:43 David Hunt MD / earnold Interpreting Provider: David Hunt MD - Attending Attestation I have personally performed a face to face evaluation on this patient. I have reviewed and agree with the care plan. History and Exam by me shows: Patient seen patient with the complain of painful swallowing on examination alert and awake. Oral cavity no thrush seen. Assessment: Patient with metastatic cancer now with the painful swallowing. Recommendation EGD to rule o ut infectious etiologies in the esophagus for her symptom
--- NOTE | 2018-12-14 13:00 | Oncology Inp Progress Note ---
<Chayo Alvarado S - Last Filed: 12/14/18 14:44> Date of Encounter: 12/14/18 Time of Encounter: 14:44 Oncology: Obj Data - Labs CBC & Chem 7: 12/14/18 05:20 12/14/18 07:15 Consult Discharge Plan - Plan Referrals: Geremias Ryan DO [Partnered Physician] - 12/19/18 1:00 pm Inpatient Charges Provider: Dr. Merna Alvarado Follow up - Inpatient: [id number] - Attending Attestation I examined this patient and my medical decision-making was reviewed with the Advanced Practice Nurse. I agree with the documented findings, disposition and treatment plan as described except to the extent set forth below. 1 1. Acute episodes of confusion. She had a period of confusion this morning and evaluated. No stroke. MRI brain negative 12/14/2018. Most likely this is metabolic. Ammonia normal at 45. Sepsis may be contributing to some of this. She has episodes at home 2. She has UTI with MRSA and also MRSA in the sputum getting antibiotics. Her white count is increasing neutrophils currently 11,000. Infectious disease consult may be helpful 3. Metastatic colon cancer. On chemotherapy. Overall CEA is stable to improved currently 8 4. She had some odynophagia. EGD unremarkable and the esophagus and small food in the stomach. This could have been secondary to neutropenia and this has improved as her neutropenia recovered. 5. Atrial fibrillation rapid RVR. Troponin 0.06. <Sindhu Mena L - Last Filed: 12/14/18 16:24> Date of Encounter: 12/14/18 (1) CAP (community acquired pneumonia) Current Visit: No Status: Acute Assessment and plan: Sputum culture: MRSA + Klebsiella Oxytoca + CT abomen and pelvis without contrast (12/08/18) Noted discrete nodules within the right lower lobe, measuring 5mm Concern for infectious/inflammatory reaction vs new metastases. Nodules not identified on September 2018 CT. Plan: Continue antibiotics per primary team-vanc and rocephin Vancomycin (renal dosing as indicated for CKD 3) Treatment for COPD exacerbation ordered per hospitalist Qualifiers: Laterality: left Lung location: unspecified part of lung Qualified Code(s): J18.9 - Pneumonia, unspecified organism (2) Colon cancer metastasized to liver Current Visit: No Status: Chronic Assessment and plan: Metastatic colon cancer Palliative chemotherapy with FOLFIRI + Avastin Last dose on 11/30/18 Plan: Hold chemotherapy until acute issues resolve. With subsequent chemotherapy would drop 5-FU bolus which probably contributes to the neutropenia CT abdomen and pelvis 12/08/2018 showed new lung nodules in the right base up to 5 mm. And not sure if it is infectious versus metastasis. Currently no reason to change treatment per treating oncologist CEA 12/11/2018 resulted 8.2, supporting that new lung nodules are most likely of infectious etiology (3) Neutropenia Current Visit: Yes Status: Resolved Assessment and plan: As expected from irinotecan and 5FU, WBC/neutrophil count have decreased. Irinotecan calin is 14-16 days with a recovery in 21-28 days Fluorouracil (5FU) calin is 9-14 days, with a recovery in 21-28 days. Plan: Now resolved, now with luekocytosis, may secondary to neupogen With subsequent chemotherapy would drop 5-FU bolus which probably contributes to the neutropenia 12/10/18: ANC 600, 900 (12/12/18), 6,200 today Status post 1 dose Neupogen 12/11/2018 Qualifiers: Neutropenia type: due to infection Qualified Code(s): D70.3 - Neutropenia due to infection (4) Mucositis Current Visit: Yes Status: Acute Assessment and plan: Continues to report significant mucositis symptoms Plan: Symptoms appear to be improving today Continue stomatitis mixture and fungal coverage with diflucan Added carafate Expect symptoms to continue to improve now that neutropenia is improving EGD 12/13/18 revealed normal esophagus, small amount of food in stomach (5) Metabolic encephalopathy Current Visit: Yes Status: Acute Assessment and plan: Acute changes noted as of yesterday Lethargic today and oriented to person and place only Etiology unclear, ABG normal, blood sugar was noted to be mildly low earlier today but normal at time of noted alteration This could be secondary to sepsis/infection although infection clinically improving on appropriate treatment Plan: Improved yesterday, however, rapid response called overnight for acute onset of confusion and slurred speech. STAT CBC, CMP and troponin was ordered. EKG noted A-fib with RVR, lopressor was given. STAT CT head negative for acute findings. This was followed by MRI brain which was also negative for acute findings. Etiology unclear. Her mental status changers were initially thought to be secondary to valtrex with symptoms starting shortly after first dose and then improving after stopping (has known [employer] side effects in elderly) vs. hospital induced delirium vs. other (infectious/sepsis). Family now report that patient has had intermittent episodes similar to this at home Oncology: Subj Interval history: Katie is sitting up in a chair eating lunch during my assessment. She is alert and oriented to person and place, although it did take her an extended length of time to remember her name and birthday. She did eventually recall her name/birthday after several attempts. Patients daughter state that this is not her baseline. Patients daughter does endorse that patient will occasionally have intermittent periods of confusion at home although this seems to be worse than prior events. Katie is eating her lunch without difficulty, her odynophagia seems to have significantly improved overnight. She denies chest pain, SOB, headache, dizziness, visual changes, abdominal pain, nausea, vomiting, urinary or bowel complaint. - Constitutional General appearance: cooperative, no acute distress, no febrile - Head Head exam: Present: atraumatic - ENT ENT exam: Present: mucous membranes moist, normal oropharynx - Respiratory Respiratory exam: Present: CTAB. Absent: respiratory distress - Cardiovascular Cardiovascular exam: Present: irregular rhythm - GI/Abdominal GI/Abdominal exam: Present: normal bowel sounds, soft. Absent: tenderness - Extremities Exam Extremities exam: Present: normal inspection. Absent: calf tenderness - Neurological Exam Neurological exam: Present: alert, no focal deficits, strengths equal and symetr throughout Additional comments: oriented to person and place, disoriented to time - Psychiatric Psychiatric exam: Present: flat affect - Skin Skin exam: Present: dry, intact, normal color, warm Oncology: Obj Data - Labs CBC & Chem 7: 12/14/18 05:20 12/14/18 07:15 Inpatient Charges Provider: Dr. Merna Alvarado
--- NOTE | 2018-12-14 15:06 | Internal Med Progress Note ---
Hospitalist Progress Note - Encounter Date of Encounter: 12/14/18 Time of Encounter: 15:04 - Subjective Interval History: Patient seen and examined at bedside. Patient states that she feels okay today. She denies pain. She does appear a little confused and is asking the same question multiple times. - Exam Vitals: Temp Pulse Resp BP Pulse Ox 97.9 F 70 16 105/56 96 12/14/18 08:18 12/14/18 12:08 12/14/18 12:08 12/14/18 12:08 12/14/18 12:08 Exam: Gen.: Appears chronically ill Heart: Irregularly irregular, tachycardia, no murmurs, rubs, gallops Lungs: Clear to auscultation bilaterally, no rales, rhonchi, wheezes. - Assessment and Plan (1) Diarrhea Current Visit: Yes Status: Acute Assessment and Plan: Per nursing report patient has episodes of loose stool this morning. No previous episodes. Patient is having increasing leukocytosis and has been on antibiotics so she is at risk for C. difficile. We will continue monitor for loose stools and check GI panel. (2) Mucositis Current Visit: Yes Status: Acute Assessment and Plan: Patient underwent upper endoscopy that was completely normal. Continue stomatitis mixture. (3) Metabolic encephalopathy Current Visit: Yes Status: Acute Assessment and Plan: Mental status is waxing and waning. MRI obtained today that was unremarkable for any acute changes. Per family this may be similar to what she does at home. Patient did have an infection but she has been treated appropriately so I do not think that she is septic causing her encephalopathy. (4) HCAP (healthcare-associated pneumonia) Current Visit: Yes Status: Acute Assessment and Plan: Patient has evidence of multiple nodular densities possibly related to underlying pneumonia. Sputum cultures positive for MRSA and Klebsiella oxytoca. Clinically appears to be improving, afebrile, white count improved. Continue vancomycin and Rocephin for a total of 7 days. (5) Neutropenia Current Visit: Yes Status: Resolved Assessment and Plan: Resolved. White blood cell count is elevated. Unsure if she is developing an infection versus is rebound effect from Neupogen. Continue to monitor white blood cell count. (6) Diabetes mellitus Current Visit: Yes Status: Chronic Assessment and Plan: Blood sugars under good control. No hypoglycemic episodes noted. Continue monitor blood sugars and adjust as necessary. (7) CKD (chronic kidney disease) stage 3, GFR 30-59 ml/min Current Visit: No Status: Chronic Assessment and Plan: Creatinine at baseline. Continue to monitor renal function. (8) HTN (hypertension) Current Visit: No Status: Chronic Assessment and Plan: Blood sugar under good control. Continue home medications. (9) Colon cancer metastasized to liver Current Visit: No Status: Chronic Assessment and Plan: Patient follows with oncology. Plan to hold chemotherapy during his acute illness. Plan outpatient follow-up. Appreciate oncology recommendations. (10) Chronic diastolic (congestive) heart failure Current Visit: No Status: Chronic Assessment and Plan: Stable. No evidence of fluid overload. No evidence of acute heart failure. Continue home Lasix 40 mg by mouth daily (11) COPD exacerbation Current Visit: Yes Status: Acute Assessment and Plan: Mild. Secondary to pneumonia. Overall appears improved. Continue antibiotics, bronchodilators, prednisone 40 mg daily, today is day 5 of steroids, we will treat for a total of 5 days, discontinue after today. (12) Atrial fibrillation with rapid ventricular response Current Visit: Yes Status: Chronic Assessment and Plan: Heart rate under better control today. Patient seems to be tolerating increased dose of Cardizem well. Continue Cardizem 180 mg daily and Eliquis (13) Obesity (BMI 30-39.9) Current Visit: No Status: Chronic Assessment and Plan: lifestyle modifications (14) DVT prophylaxis Current Visit: Yes Status: Acute Assessment and Plan: Currently on Eliquis - Time Spent with Patient Total time spent is greater than 50% in coordination of care (as documented) at patient's floor/unit and/or counseling patient: Internal Medicine: Result - Labs CBC & Chem 7: 12/14/18 05:20 12/14/18 07:15 Labs: Short CBC 12/14/18 Range/Units 05:20 WBC 18.2 H D (4.3-11.1) K/mcL Hgb 11.0 L D (11.5-15.4) g/dL Hct 33.1 L (35.3-44.9) % Plt Count 164 (140-400) K/mcL Neutrophils # 11.7 H (1.6-8.9) K/mcL BMP 12/14/18 12/14/18 05:20 07:15 Sodium 135 L 136 Potassium 3.5 3.0 L Chloride 101 101 Carbon Dioxide 19 L 22 L BUN 29 H 28 H Creatinine 1.02 0.94 Glucose 215 H 176 H Calcium 9.0 8.9 Cardiac Enzymes 12/14/18 Range/Units 07:15 Troponin I 0.06 H* (< 0.04) ng/mL Liver Function 12/14/18 Range/Units 07:15 Total Bilirubin 0.6 (0.3-1.0) mg/dL AST 21 (13-39) Units/L ALT 13 (7-52) Units/L Alkaline Phosphatase 137 H (34-104) Units/L Albumin 3.1 L (3.5-5.7) g/dL - ABG Interpretation ABG results: ABG ABG pH 7.42 pH Units (7.32-7.45) 12/12/18 11:11 ABG pCO2 30 mmHg (35-45) L 12/12/18 11:11 ABG pO2 70 mmHg (85-104) L 12/12/18 11:11 ABG O2 Saturation 95 % (95-98) 12/12/18 11:11 PT/INR, D-dimer PT 16.2 Seconds (9.4-12.1) H 12/07/18 07:25 - Impressions Impressions Head CT 12/14/18 06:35 IMPRESSION: 1. No acute intracranial abnormality. 2. Cerebral parenchymal volume loss with chronic microvascular white matter ischemic disease. 3. Improved paranasal sinus disease with residual thickened secretions in the right maxillary sinus, concerning for acute sinusitis. D/ / 12/14/2018 08:36:37 [facility] Inter[facility] Provider: Alvin Walters MD Brain MRI 12/14/18 08:55 IMPRESSION: No acute intracranial abnormality. D/ / 12/14/2018 10:55:43 David Hunt MD / [facility] Interpreting Provider: David Hunt MD Consult Discharge Plan - Plan Referrals: Geremias Ryan DO [Partnered Physician] - 12/19/18 1:00 pm (1) Diarrhea Qualifiers: Diarrhea type: unspecified type Qualified Code(s): R19.7 - Diarrhea, unspecified (5) Neutropenia Qualifiers: Neutropenia type: due to infection Qualified Code(s): D70.3 - Neutropenia due to infection (6) Diabetes mellitus Qualifiers: Diabetes mellitus type: type 2 Diabetes mellitus residential insulin use: without certified cytotechnologist use Diabetes mellitus complication status: with hyperglycemia Qualified Code(s): E11.65 - Type 2 diabetes mellitus with hyperglycemia (8) HTN (hypertension) Qualifiers: Hypertension type: essential hypertension Qualified Code(s): I10 - Essential (primary) hypertension
--- NOTE | 2018-12-14 15:13 | Physician Discharge Referral ---
Home Health/Hosp Referral Info Transfer to: Home Health Provider in Charge Post Discharge: PCP - Diagnosis (1) Diarrhea Priority: Secondary Status: Acute (2) Mucositis Priority: Secondary Status: Acute (3) Metabolic encephalopathy Priority: Primary Status: Acute (4) HCAP (healthcare-associated pneumonia) Priority: Primary Status: Acute (5) Neutropenia Priority: Secondary Status: Resolved (6) Diabetes mellitus Priority: Secondary Status: Chronic (7) CKD (chronic kidney disease) stage 3, GFR 30-59 ml/min Priority: Secondary Status: Chronic (8) HTN (hypertension) Priority: Secondary Status: Chronic (9) Colon cancer metastasized to liver Priority: Secondary Status: Chronic (10) Chronic diastolic (congestive) heart failure Priority: Secondary Status: Chronic (11) COPD exacerbation Priority: Secondary Status: Acute (12) Atrial fibrillation with rapid ventricular response Priority: Secondary Status: Chronic (13) Obesity (BMI 30-39.9) Priority: Secondary Status: Chronic - Respiratory Orders None Smoking Cessation: Smoking cessation has been advised. For more information, call the [place] Tobacco Quit Line at 2-905-TATV-NOW. - Diet/Nutrition Diet/Nutrition Orders: Cardiac - Activity Activity Orders: Ambulate (pet PT) - Services Needed Following services are medically necessary services: Nursing, Home Health Aide, Physical Therapy, Occupational Therapy - Transfer Medications Home Medications: Insulin ASPART [Novolog Flexpen] 15 unit SQ TIDAC MDD + SLIDING SCALE 11/15/15 [History] Hydralazine HCl 100 mg PO TID 11/29/16 [History] ALPRAZolam [Xanax 0.5 MG Tablet] 0.5 mg PO BID PRN 08/08/17 [History] Pravastatin Sodium [Pravachol] 80 mg PO HS 08/08/17 [History] Oxygen 2 l NS PRN PRN 09/22/17 [History] Albuterol Neb [Proventil Neb] 2.5 mg IH Q8H PRN 08/29/18 [History] Albuterol Sulfate [Proair Hfa] 2 puff IH Q6H PRN 08/29/18 [History] Aspirin [Lo-Dose Aspirin EC] 81 mg PO DAILY 08/29/18 [History] Ferrous Sulfate [Iron] 325 mg PO DAILY 08/29/18 [History] Fluticasone Propionate Nasal [Flonase] 1 spray NS DAILY 11/09/18 [History] cloNIDine HCl [Clonidine HCl] 0.3 mg PO TID 11/09/18 [History] Apixaban [Eliquis] 2.5 mg PO BID 11/10/18 [History] Carvedilol [Coreg] 25 mg PO BID 11/10/18 [History] Diltiazem CD (24hr) [Cardizem CD] 120 mg PO DAILY 11/10/18 [History] Dulaglutide [Trulicity] 0.75 mg SQ TH 11/10/18 [History] Gabapentin [Neurontin] 100 mg PO BID 11/10/18 [History] Insulin Degludec [Tresiba Flextouch U-200] 45 - 50 unit SQ HS 11/10/18 [History] [place]-3/Dha/Epa/Fish Oil [Cvs Fish Oil 1,000 mg Softgel] 1 cap PO DAILY 11/10/18 [History] Potassium Chloride 20 meq PO DAILY 11/10/18 [History] Losartan [Cozaar] 100 mg PO DAILY tablet 11/12/18 [Rx] Nitrofurantoin (BID) [Macrobid] 100 mg PO BID #30 capsule 11/30/18 [Rx] Furosemide [Lasix] 40 mg PO DAILY 12/08/18 [History] Lidocaine/Prilocaine CREAM [Emla] 1 appl TP AD 12/09/18 [History] OxyCODONE/APAP 5/325 [Percocet 5/325 MG] 1 tab PO TID PRN 12/09/18 [History] Allergies/Adverse Reactions: Allergy/AdvReac Type Severity Reaction Status Date / Time Sulfa (Sulfonamide Allergy Severe Swelling Verified 11/30/18 08:51 Antibiotics) of Lip/Tongue/Throat Certification: Further, I certify that my clinical findings support that this patient is homebound (i.e. absences from home require considerable and taxing effort and are for medical reasons or evangelical services or infrequently or short duration when for other reasons) because: Homebound Reason: Patient requires assistance of a person or device to safely leave home, Leaving home requires considerable and taxing effort due to condition, Altered mental status requiring supervision when leaving home Attestation: My signature below is to certify that this patient is under my care and that I, or nurse practitioner, or a physician's catering assistant working with me, has a [id number] encounter with this patient.
[2018-12-14] MEDS: Insulin DETEMIR 100 UNIT/ML X5UNITS SQ SCH (22:35)
[2018-12-15] MEDS: Levalbuterol Neb 0.63 MG/3 ML IH SCH ×4 (03:55→21:32)
[2018-12-15] MEDS: Insulin LISPRO 300 UNITS/3 ML VIAL SQ SCH ×4 (08:31→20:35)
[2018-12-15] MEDS: hydrALAZINE 25 MG TABLET PO SCH ×3 (08:42→20:43)
[2018-12-15] MEDS: Sucralfate 1 GM TABLET PO SCH ×4 (08:42→20:43)
[2018-12-15] MEDS: Diltiazem CD (24hr) 180 MG CAPSULE PO SCH (08:43)
[2018-12-15] MEDS: Fluconazole 100 MG TABLET PO SCH (08:43)
[2018-12-15] MEDS: Furosemide 40 MG TABLET PO SCH (08:43)
[2018-12-15] MEDS: Aspirin Enteric Coated 81 MG Tablet PO SCH (08:43)
[2018-12-15] MEDS: Gabapentin 100 MG CAPSULE PO SCH ×2 (08:43→20:44)
[2018-12-15] MEDS: cloNIDine HCl 0.1 MG TABLET PO SCH ×3 (08:43→20:42)
[2018-12-15] MEDS: Apixaban 2.5 MG TABLET PO SCH ×2 (08:44→20:45)
[2018-12-15 09:33] LABS: Hematocrit 32.1 % (35.3-44.9); Hemoglobin 10.4 g/dL (11.5-15.4); Mean Corpuscular HGB Conc 32.4 g/dL (31.6-35.5); Mean Corpuscular Hemoglobin 30.6 pg (28.0-33.3); Mean Corpuscular Volume 94.4 fL (83.0-100.0); Nucleated Red Blood Cells 0.6 /100 WBC (0); Platelet Count 170 K/mcL (140-400); Red Cell Distribution Width 20.5 % (11.5-14.5)
[2018-12-15 09:57] LABS: Calcium 8.3 mg/dL (8.6-10.3); Magnesium 1.8 mg/dL (1.6-2.6); Potassium 3.7 mEq/L (3.5-5.1)
[2018-12-15 10:18] LABS: Lymphocytes # 2.3 K/mcL (0.6-4.6); Monocytes # 1.9 K/mcL (0.0-1.3); Neutrophils # 13.3 K/mcL (1.6-8.9); Platelet Estimate Normal (Normal)
--- NOTE | 2018-12-15 10:33 | Internal Med Progress Note ---
Hospitalist Progress Note - Encounter Date of Encounter: 12/15/18 Time of Encounter: 09:57 - Subjective Interval History: Patient seen and examined this morning at bedside. No acute overnight events. Denies any complaint. Afebrile overnight. On and off loose bowel movement. Denies any difficulty breathing chest pain abdominal pain - Exam Vitals: Temp Pulse Resp BP Pulse Ox 98.1 F 72 15 174/79 96 12/15/18 06:44 12/15/18 06:44 12/15/18 06:44 12/15/18 06:44 12/15/18 06:44 Exam: General: In no acute distress. Respiratory exam: CTAB. no accessory muscle use, rales, rhonchi, wheezes Cardiovascular exam: Irregular, +S1, +S2. no murmur, gallop, rubs. GI/Abdominal exam: Non-tender, Non-distended, soft, no peritoneal signs. Extremities exam: 1+ pedal edema, no calf tenderness. Bandage on RLE above ankle Neurological exam: CN II-XII intact, AO X2, no focal deficits. - Assessment and Plan (1) Diabetes mellitus Current Visit: Yes Status: Chronic (2) Obesity (BMI 30-39.9) Current Visit: No Status: Chronic (3) CKD (chronic kidney disease) stage 3, GFR 30-59 ml/min Current Visit: No Status: Chronic (4) HTN (hypertension) Current Visit: No Status: Chronic (5) Colon cancer metastasized to liver Current Visit: No Status: Chronic (6) HCAP (healthcare-associated pneumonia) Current Visit: Yes Status: Acute (7) Chronic diastolic (congestive) heart failure Current Visit: No Status: Chronic (8) COPD exacerbation Current Visit: Yes Status: Acute (9) Atrial fibrillation with rapid ventricular response Current Visit: Yes Status: Chronic (10) Metabolic encephalopathy Current Visit: Yes Status: Acute (11) Neutropenia Current Visit: Yes Status: Resolved (12) Mucositis Current Visit: Yes Status: Acute (13) Diarrhea Current Visit: Yes Status: Acute - Summary of Assessment and Plan Summary of Assessment and Plan: Diarrhea - on and off diarrhea - recently finished antibiotics so she is at risk for C. difficile. - f/u GI panel. HCAP - Sputum cultures positive for MRSA and Klebsiella oxytoca. Finished vancomycin and Rocephin for a total of 7 days. - Clinically improved, afebrile. except leukocytosis - hold antibiotics for now Neutropenia - Resolved. - Now with leukocytosis. s/p neupogen 12/11. Also finished 5 day of prednisone for COPD - Has finished antibiotic course. afebrile - monitor leukocytosis Elevated troponin - likely demand ischemia Mucositis - s/p EGD which was unremarkable. - c/w stomatitis mixture and carafate per GI Metabolic encephalopathy - Mental status is waxing and waning - MRI was unremarkable for any acute changes. similar mentation at home per family - possibly added metabolic encephalopathy on baseline. Colon cancer metastasized to liver - Oncology following - liver mets stable - hold chemotherapy during his acute illness. Plan outpatient follow-up. Appreciate oncology recommendations. Diabetes mellitus - c/w levemir, SSI and accuchecks. CKD - stable - monitor renal function. HTN - c/w losartan, metoprolol, coreg and diltiazem Chronic diastolic heart failure - No evidence of fluid overload. - c/w home Lasix 40 mg by mouth daily COPD exacerbation - resolved. Mild. Secondary to pneumonia. Overall appears improved. Continue antibiotics, bronchodilators, prednisone 40 mg daily, today is day 5 of steroids, we will treat for a total of 5 days, discontinue after today. Atrial fibrillation with rapid ventricular response - rate controlled now with increased cardizem dose, metoprolol and Eliquis DVT prophylaxis -on Eliquis - Time Spent with Patient Total time spent is greater than 50% in coordination of care (as documented) at patient's floor/unit and/or counseling patient: Internal Medicine: Result - Labs CBC & Chem 7: 12/15/18 09:13 12/15/18 09:13 Labs: Short CBC 12/15/18 Range/Units 09:13 WBC 19.0 H (4.3-11.1) K/mcL Hgb 10.4 L (11.5-15.4) g/dL Hct 32.1 L (35.3-44.9) % Plt Count 170 (140-400) K/mcL - ABG Interpretation ABG results: ABG ABG pH 7.42 pH Units (7.32-7.45) 12/12/18 11:11 ABG pCO2 30 mmHg (35-45) L 12/12/18 11:11 ABG pO2 70 mmHg (85-104) L 12/12/18 11:11 ABG O2 Saturation 95 % (95-98) 12/12/18 11:11 PT/INR, D-dimer PT 16.2 Seconds (9.4-12.1) H 12/07/18 07:25 - Impressions Impressions Head CT 12/14/18 06:35 IMPRESSION: 1. No acute intracranial abnormality. 2. Cerebral parenchymal volume loss with chronic microvascular white matter ischemic disease. 3. Improved paranasal sinus disease with residual thickened secretions in the right maxillary sinus, concerning for acute sinusitis. D/ : / 12/14/2018 08:36:37 Alvin Walters MD / [facility] Interpreting Provider: Alvin Walters MD Brain MRI 12/14/18 08:55 IMPRESSION: No acute intracranial abnormality. D/ / 12/14/2018 10:55:43 David Hunt MD / [facility] Interpreting Provider: David Hunt MD Consult Discharge Plan - Plan Referrals: Geremias Ryan DO [Partnered Physician] - 12/19/18 1:00 pm (1) Diabetes mellitus Qualifiers: Diabetes mellitus type: type 2 Diabetes mellitus tapper operator insulin use: without penitentiary use Diabetes mellitus complication status: with hyperglycemia Qualified Code(s): E11.65 - Type 2 diabetes mellitus with hyperglycemia (4) HTN (hypertension) Qualifiers: Hypertension type: essential hypertension Qualified Code(s): I10 - Essential (primary) hypertension (11) Neutropenia Qualifiers: Neutropenia type: due to infection Qualified Code(s): D70.3 - Neutropenia due to infection (13) Diarrhea Qualifiers: Diarrhea type: unspecified type Qualified Code(s): R19.7 - Diarrhea, unspecified
[2018-12-15] MEDS: Stomatitis Mixture 5 ML UDC PO SCH ×4 (10:44→20:46)
--- NOTE | 2018-12-15 10:47 | Electrocardiograph Report ---
[address] [place], [place] [address] Test Date: 2018-12-14 Pat Name: Katie Hitchcock Department: 111 Room: 2NE23 Gender: F Bi Lead: [id number] : 1945 Requested By: Jorge Powell Order Number: [id number] Reading MD: Love Cee Measurements Intervals [place] Rate: 138 P: [place]: 0 QRS: 34 QRSD: 126 T: -16 QT: 261 QTc: 342 Interpretive Statements ATRIAL FLUTTER/TACHYCARDIA RIGHT BUNDLE BRANCH BLOCK POSSIBLE ANTERIOR MYOCARDIAL INFARCTION, PROBABLY OLD MARKED ST DEPRESSION, CONSIDER SUBENDOCARDIAL INJURY ARTIFACT Electronically Signed On 12-15-2018 10:46:32 EDT by Love Cee
[2018-12-15 11:40] LABS: Adenovirus F 40/41 PCR Not detected (Not detect); C.difficile Toxin A/B Gene PCR Not detected (Not detect); Campylobacter by PCR Not detected (Not detect); Cryptosporidium by PCR Not detected (Not detect); Cyclospora cayetanensis PCR Not detected (Not detect); E. coli O157 by PCR Not detected (Not detect); Entamoeba histolytica PCR Not detected (Not detect); Enteroaggregative E.coli(EAEC) Not detected (Not detect); Enteropathogenic E.coli(EPEC) Not detected (Not detect); Enterotoxigenic E.coli (ETEC) Not detected (Not detect); Giardia lamblia PCR Not detected (Not detect); Plesiomonas shigelloides PCR Not detected (Not detect); Salmonella PCR Not detected (Not detect); Shig/EnteroinvasiveE coli EIEC Not detected (Not detect); Shigalike tox-prod E coli STEC Not detected (Not detect); Vibrio PCR Not detected (Not detect); Vibrio cholerae PCR Not detected (Not detect); Yersinia enterocolitica PCR Not detected (Not detect)
[2018-12-15 11:41] LABS: Astrovirus PCR Not detected (Not detect); Norovirus GI/GII PCR Not detected (Not detect); Rotavirus A PCR Not detected (Not detect); Sapovirus PCR Not detected (Not detect)
[2018-12-15] MEDS: Insulin DETEMIR 100 UNIT/ML X5UNITS SQ SCH (20:47)
[2018-12-16 01:13] LABS: Hematocrit 28.7 % (35.3-44.9); Hemoglobin 9.5 g/dL (11.5-15.4); Immature Platelets 6.9 % (1.1-6.1); Mean Corpuscular HGB Conc 33.1 g/dL (31.6-35.5); Mean Corpuscular Volume 93.8 fL (83.0-100.0); Mean Platelet Volume 12.5 fL (9.4-12.4); Nucleated Red Blood Cells 0.4 /100 WBC (0); Platelet Count 134 K/mcL (140-400); Red Blood Count 3.06 M/mcL (3.82-4.97); Red Cell Distribution Width 20.1 % (11.5-14.5)
[2018-12-16 01:39] LABS: BUN/Creatinine Ratio 22 (6-26); Blood Urea Nitrogen 23 mg/dL (8-23); Calcium 8.3 mg/dL (8.6-10.3); Carbon Dioxide 21 mEq/L (23-29); Chloride 103 mEq/L (98-107); Glucose 78 mg/dL (70-105); Osmolality,Calculated 281 (280-300); Potassium 3.5 mEq/L (3.5-5.1); Sodium 134 mEq/L (136-145); eGFR For Non-African Americans 51 (> 60)
[2018-12-16 02:02] LABS: Lymphocytes # 0.6 K/mcL (0.6-4.6); Monocytes # 2.2 K/mcL (0.0-1.3); Neutrophils # 10.3 K/mcL (1.6-8.9); Platelet Estimate Slight Decrease (Normal)
[2018-12-16 02:03] LABS: Anisocytosis 2+ (Not Present); Polychromasia 1+ (Not Present)
[2018-12-16] MEDS: Levalbuterol Neb 0.63 MG/3 ML IH SCH ×4 (03:58→22:12)
[2018-12-16] MEDS: Fluconazole 100 MG TABLET PO SCH (08:31)
[2018-12-16] MEDS: Sucralfate 1 GM TABLET PO SCH ×4 (08:31→23:53)
[2018-12-16] MEDS: cloNIDine HCl 0.1 MG TABLET PO SCH ×3 (08:31→23:51)
[2018-12-16] MEDS: Gabapentin 100 MG CAPSULE PO SCH ×2 (08:31→23:51)
[2018-12-16] MEDS: Aspirin Enteric Coated 81 MG Tablet PO SCH (08:31)
[2018-12-16] MEDS: hydrALAZINE 25 MG TABLET PO SCH ×3 (08:32→23:52)
[2018-12-16] MEDS: Diltiazem CD (24hr) 180 MG CAPSULE PO SCH (08:32)
[2018-12-16] MEDS: Furosemide 40 MG TABLET PO SCH (08:33)
[2018-12-16] MEDS: Insulin LISPRO 300 UNITS/3 ML VIAL SQ SCH ×4 (08:33→23:52)
[2018-12-16] MEDS: Apixaban 2.5 MG TABLET PO SCH ×2 (08:33→23:51)
[2018-12-16] MEDS: Stomatitis Mixture 5 ML UDC PO SCH ×4 (08:35→23:51)
[2018-12-16] MEDS: ALPRAZolam 0.5 MG TABLET PO PRN (10:00)
--- NOTE | 2018-12-16 11:33 | Internal Med Progress Note ---
Hospitalist Progress Note - Encounter Date of Encounter: 12/16/18 Time of Encounter: 11:33 - Subjective Interval History: Patient seen and examined this morning at bedside. No acute overnight events. Patient feeling better. Denies any difficulty breathing or chest pain. Is alert oriented 2. - Exam Vitals: Temp Pulse Resp BP Pulse Ox 98.5 F 83 16 153/84 94 12/16/18 07:22 12/16/18 07:22 12/16/18 11:02 12/16/18 07:22 12/16/18 11:02 Exam: General: In no acute distress. Respiratory exam: CTAB. no accessory muscle use, rales, rhonchi, wheezes Cardiovascular exam: Irregular, +S1, +S2. no murmur, gallop, rubs. GI/Abdominal exam: Non-tender, Non-distended, soft, no peritoneal signs. Extremities exam: 1+ pedal edema, no calf tenderness. Bandage on RLE above ankle Neurological exam: CN II-XII intact, AO X2, no focal deficits. - Assessment and Plan (1) Diabetes mellitus Current Visit: Yes Status: Chronic (2) Obesity (BMI 30-39.9) Current Visit: No Status: Chronic (3) CKD (chronic kidney disease) stage 3, GFR 30-59 ml/min Current Visit: No Status: Chronic (4) HTN (hypertension) Current Visit: No Status: Chronic (5) Colon cancer metastasized to liver Current Visit: No Status: Chronic (6) HCAP (healthcare-associated pneumonia) Current Visit: Yes Status: Acute (7) Chronic diastolic (congestive) heart failure Current Visit: No Status: Chronic (8) COPD exacerbation Current Visit: Yes Status: Acute (9) Atrial fibrillation with rapid ventricular response Current Visit: Yes Status: Chronic (10) Metabolic encephalopathy Current Visit: Yes Status: Acute (11) Neutropenia Current Visit: Yes Status: Resolved (12) Mucositis Current Visit: Yes Status: Acute (13) Diarrhea Current Visit: Yes Status: Acute - Summary of Assessment and Plan Summary of Assessment and Plan: Diarrhea - on and off diarrhea. Now with soft BM. - recently finished antibiotics so she is at risk for C. difficile. - GI panel negative - encouraged hydration orally if have diarrhea. HCAP - Sputum cultures positive for MRSA and Klebsiella oxytoca. Finished vancomycin and Rocephin for a total of 7 days. - Clinically improved, afebrile. except leukocytosis which is now improving. - hold antibiotics for now Neutropenia - Resolved. - Now with leukocytosis. s/p neupogen 12/11. Also finished 5 day of prednisone for COPD - Has finished antibiotic course. afebrile - monitor leukocytosis. Now improving. Possibly related ot neupogen and steroids use. Elevated troponin - likely demand ischemia from afib with RVR Mucositis - s/p EGD which was unremarkable. - c/w stomatitis mixture and carafate per GI Metabolic encephalopathy - Mental status is waxing and waning - MRI was unremarkable for any acute changes. similar mentation at home per family - possibly added metabolic encephalopathy on baseline. - now improved Colon cancer metastasized to liver - Oncology following - liver mets stable - hold chemotherapy during his acute illness. Plan outpatient follow-up. Appreciate oncology recommendations. Diabetes mellitus - c/w levemir, SSI and accuchecks. CKD - stable - monitor renal function. HTN - c/w losartan, metoprolol, coreg and diltiazem Chronic diastolic heart failure - No evidence of fluid overload. - c/w home Lasix 40 mg by mouth daily COPD exacerbation - resolved. Mild. Secondary to pneumonia. Overall appears improved. finished antibiotics, prednisone. Atrial fibrillation with rapid ventricular response - rate controlled now with increased cardizem dose, metoprolol and Eliquis DVT prophylaxis -on Eliquis Patient and family now agrees to go to SNF. Will arrange for DC tomorrow ot SNF. - Time Spent with Patient Total time spent is greater than 50% in coordination of care (as documented) at patient's floor/unit and/or counseling patient: Internal Medicine: Result - Labs CBC & Chem 7: 12/16/18 00:25 12/16/18 00:25 Labs: Short CBC 12/16/18 Range/Units 00:25 WBC 15.6 H (4.3-11.1) K/mcL Hgb 9.5 L (11.5-15.4) g/dL Hct 28.7 L (35.3-44.9) % Plt Count 134 L (140-400) K/mcL Neutrophils # 10.3 H (1.6-8.9) K/mcL BMP 12/16/18 00:25 Sodium 134 L Potassium 3.5 Chloride 103 Carbon Dioxide 21 L BUN 23 Creatinine 1.05 Glucose 78 Calcium 8.3 L - ABG Interpretation ABG results: ABG ABG pH 7.42 pH Units (7.32-7.45) 12/12/18 11:11 ABG pCO2 30 mmHg (35-45) L 12/12/18 11:11 ABG pO2 70 mmHg (85-104) L 12/12/18 11:11 ABG O2 Saturation 95 % (95-98) 12/12/18 11:11 PT/INR, D-dimer PT 16.2 Seconds (9.4-12.1) H 12/07/18 07:25 Consult Discharge Plan - Plan Referrals: Geremias Ryan DO [Partnered Physician] - 12/19/18 1:00 pm (1) Diabetes mellitus Qualifiers: Diabetes mellitus type: type 2 Diabetes mellitus detention insulin use: without detention use Diabetes mellitus complication status: with hyperglycemia Qualified Code(s): E11.65 - Type 2 diabetes mellitus with hyperglycemia (4) HTN (hypertension) Qualifiers: Hypertension type: essential hypertension Qualified Code(s): I10 - Essential (primary) hypertension (11) Neutropenia Qualifiers: Neutropenia type: due to infection Qualified Code(s): D70.3 - Neutropenia due to infection (13) Diarrhea Qualifiers: Diarrhea type: unspecified type Qualified Code(s): R19.7 - Diarrhea, unspecified
[2018-12-16] MEDS: Insulin DETEMIR 100 UNIT/ML X5UNITS SQ SCH (23:52)
[2018-12-17] MEDS: Levalbuterol Neb 0.63 MG/3 ML IH SCH ×4 (03:42→22:39)
[2018-12-17] MEDS: Insulin LISPRO 300 UNITS/3 ML VIAL SQ SCH ×6 (08:07→21:48)
[2018-12-17] MEDS: hydrALAZINE 25 MG TABLET PO SCH ×3 (08:19→21:10)
[2018-12-17] MEDS: Fluconazole 100 MG TABLET PO SCH (08:20)
[2018-12-17] MEDS: Sucralfate 1 GM TABLET PO SCH ×4 (08:20→21:11)
[2018-12-17] MEDS: Diltiazem CD (24hr) 180 MG CAPSULE PO SCH (08:20)
[2018-12-17] MEDS: Aspirin Enteric Coated 81 MG Tablet PO SCH (08:20)
[2018-12-17] MEDS: cloNIDine HCl 0.1 MG TABLET PO SCH ×3 (08:20→21:11)
[2018-12-17] MEDS: Apixaban 2.5 MG TABLET PO SCH ×2 (08:20→21:11)
[2018-12-17] MEDS: Gabapentin 100 MG CAPSULE PO SCH ×2 (08:20→21:11)
[2018-12-17] MEDS: Furosemide 40 MG TABLET PO SCH (08:20)
[2018-12-17] MEDS: Stomatitis Mixture 5 ML UDC PO SCH ×4 (08:21→21:10)
--- NOTE | 2018-12-17 13:29 | Oncology Inp Progress Note ---
Date of Encounter: 12/17/18 Time of Encounter: 12:30 (1) CAP (community acquired pneumonia) Current Visit: No Status: Acute Assessment and plan: Sputum culture: MRSA + Klebsiella Oxytoca + CT abomen and pelvis without contrast (12/08/18) Noted discrete nodules within the right lower lobe, measuring 5mm Concern for infectious/inflammatory reaction vs new metastases. Nodules not identified on September 2018 CT. Plan: Patient finished 7 day treatment course of vancomycin and Rocephin. Qualifiers: Laterality: left Lung location: unspecified part of lung Qualified Cod e(s): J18.9 - Pneumonia, unspecified organism (2) Colon cancer metastasized to liver Current Visit: No Status: Chronic Assessment and plan: Metastatic colon cancer Palliative chemotherapy with FOLFIRI + Avastin Last dose on 11/30/18 Plan: Hold chemotherapy until acute issues resolve. With subsequent chemotherapy would drop 5-FU bolus which probably contributes to the neutropenia CT abdomen and pelvis 12/08/2018 showed new lung nodules in the right base up to 5 mm. And not sure if it is infectious versus metastasis. Currently no reason to change treatment per treating oncologist [facility] 12/11/2018 resulted 8.2, supporting that new lung nodules are most likely of infectious etiology Patient given follow up with Dr. Alvarado for Monday, December 28. Treatment will likely follow his appointment if cleared through the nursing facility. well services operator is still working through the logistics of this, appreciate the assistance. If she cannot receive her 5FU 46 hour infusion at the nursing facility we may need to push back treatment. At this time, we will otherwise sign off, please feel free to contact with any other questions or concerns. (3) Neutropenia Current Visit: Yes Status: Resolved Assessment and plan: As expected from irinotecan and 5FU, WBC/neutrophil count have decreased. Irinotecan calin is 14-16 days with a recovery in 21-28 days Fluorouracil (5FU) calin is 9-14 days, with a recovery in 21-28 days. Plan: Now resolved, now with luekocytosis that is now down trending, may secondary to neupogen/steroids With subsequent chemotherapy would drop 5-FU bolus which probably contributes to the neutropenia 12/10/18: ANC 600, 900 (12/12/18) Status post 1 dose Neupogen 12/11/2018 Qualifiers: Neutropenia type: due to infection Qualified Code(s): D70.3 - Neutropenia due to infection (4) Mucositis Current Visit: Yes Status: Acute Assessment and plan: Continues to report significant mucositis symptoms Plan: Symptoms continuing to improve Continue stomatitis mixture and fungal coverage with diflucan Added carafate EGD 12/13/18 revealed normal esophagus, small amount of food in stomach (5) Metabolic encephalopathy Current Visit: Yes Status: Acute Assessment and plan: Mental status is waxing and waning, patients family report similar events at home Etiology unclear, ABG normal, blood sugar was noted to be mildly low earlier today but normal at time of noted alteration STAT CT head negative for acute findings. This was followed by MRI brain which was also negative for acute findings Valtrex was stopped for concern that is may have been causing neurological side effects Plan: Alterations in mental status and orientation appears to wax and wane but overall improved Oncology: Subj Interval history: Ms. Hitchcock is resting in her chair. She states she is feeling well today. Eating her lunch tray without issue, patient continues to report overall improvement in her odynophagia. Planned for d/c to SNF - Constitutional General appearance: cooperative, no acute distress, no febrile - Head Head exam: Present: atraumatic - ENT ENT exam: Present: mucous membranes moist, normal oropharynx - Respiratory Respiratory exam: Present: CTAB. Absent: respiratory distress - Cardiovascular Cardiovascular exam: Present: RRR - GI/Abdominal GI/Abdominal exam: Present: normal bowel sounds, soft. Absent: tenderness - Extremities Exam Extremities exam: Present: normal inspection. Absent: calf tenderness - Neurological Exam Neurological exam: Present: alert, oriented X3, no focal deficits, strengths equal and symetr throughout - Psychiatric Psychiatric exam: Present: flat affect - Skin Skin exam: Present: dry, intact, normal color, warm Oncology: Obj Data - Labs CBC & Chem 7: 12/16/18 00:25 12/16/18 00:25 Consult Discharge Plan - Plan Referrals: Chayo Alvarado MD [Partnered Physician] - 12/28/18 9:00 am Geremias Ryan DO [Partnered Physician] - 12/19/18 1:00 pm Prescriptions: ALPRAZolam [Xanax 0.5 MG Tablet] 0.5 mg PO BID PRN 3 Days #6 tablet PRN Reason: Anxiety OxyCODONE/APAP 5/325 [Percocet 5/325 MG] 1 tab PO TID PRN 3 Days #3 tablet PRN Reason: Pain Inpatient Charges Provider: Sindhu Mena CNP Follow up - Inpatient: [id number]
--- NOTE | 2018-12-17 15:40 | Discharge Summary ---
- NOTES TO OUTPATIENT PROVIDER Notes to Outpatient Provider: Follow-up with oncology next week. Home trulicity currently on hold and decrease dose short acting insulin for now. We will need blood glucose monitoring and adjustment of dosage accordingly. Orders not resulted at time of discharge: Pending orders 12/07/18 11:53 Legionella Antigen [RM] Routine S. Pneumoniae Antigen [RM] Routine 12/14/18 07:15 Culture,Blood [BC] Stat Date of Encounter: 12/17/18 Time of Encounter: 15:37 - Discharge Diagnosis (1) Obesity (BMI 30-39.9) Priority: Secondary Status: Chronic (2) CKD (chronic kidney disease) stage 3, GFR 30-59 ml/min Priority: Secondary Status: Chronic (3) HTN (hypertension) Priority: Secondary Status: Chronic Qualifiers: Hypertension type: essential hypertension Qualified Code(s): I10 - Essential (primary) hypertension (4) Colon cancer metastasized to liver Priority: Secondary Status: Chronic (5) HCAP (healthcare-associated pneumonia) Priority: Primary Status: Acute (6) Chronic diastolic (congestive) heart failure Priority: Secondary Status: Chronic (7) COPD exacerbation Priority: Primary Status: Acute (8) Atrial fibrillation with rapid ventricular response Priority: Primary Status: Chronic (9) Metabolic encephalopathy Priority: Primary Status: Acute (10) Neutropenia Priority: Secondary Status: Resolved Qualifiers: Neutropenia type: due to infection Qualified Code(s): D70.3 - Neutropenia due to infection (11) Mucositis Priority: Secondary Status: Acute (12) Diarrhea Priority: Secondary Status: Acute Qualifiers: Diarrhea type: unspecified type Qualified Code(s): R19.7 - Diarrhea, unspecified (13) Diabetes Priority: Secondary Status: Acute Qualifiers: Diabetes mellitus type: type 2 Diabetes mellitus mcc insulin use: with mcc use Diabetes mellitus complication status: with unspecified complications Qualified Code(s): E11.8 - Type 2 diabetes mellitus with unspecified complications; Z79.4 - group insurance specialist (current) use of insulin (14) Lactic acidosis Priority: Primary Status: Resolved (15) Leukocytosis Priority: Secondary Status: Acute Qualifiers: Leukocytosis type: unspecified Qualified Code(s): D72.829 - Elevated white blood cell count, unspecified Hospital course: Ms. Hitchcock is a 73 year old female past medical history of asthma, arthritis, atrial fibrillation, COPD, CHF, CAD with known metastatic colon cancer to lung and liver on chemotherapy was transferred due to pneumonia and UTI from . She was started on broad-spectrum antibiotics with vancomycin and Zosyn. Patient had change in mental status on initial stay in the hospital. Head CT was obtained which was unremarkable. She also had a CT with the atrial flutter with RVR. Patient started on home medications for atrial fibrillation. CT abdomen was obtained to rule out ischemic colitis order lactic acidosis which showed right middle lobe infiltrate, right lower lobe bronchiolitis with pulmonary nodules and stable hepatic metastasis. Patient on Namenda status was waxing and waning during the hospital stay likely due to metabolic encephalopathy. MRI did not show any acute changes. While in hospital patient had worsening of white count and had neutropenia. Patient had oncology consult and received 1 dose of Neupogen. Her palliative chemotherapy with FOLFIRI + Avastin was held. Subsequently 5-FU would probably had per oncology. Patient was also started on fluconazole for mucositis for which GI was consulted later on. Patient went EGD on 12/13/18 which was mostly unremarkable. Patient's sputum grew MRSA and Klebsiella. Patient finished 7 day treatment course of vancomycin and Rocephin. Patient also had on and off diarrhea however C. difficile panel was negative. Patient's neutropenia resolved and she developed leukocytosis. Patient did receive Neupogen and prednisone for COPD which likely that the leukocytosis. Patient's heart rate was controlled with increase Cardizem dose and metoprolol. Patient white count trended down without additional intervention and her mentation remained stable. Patient was recommended rehabilitation per physical therapy. Patient was initially 1 to go home however later on agreed to go for rehabilitation which was also elevation of her daughter. She remained afebrile with a mild leukocytosis but otherwise stable. Patient would be discharged to rehabilitation once placement is arranged. Patient will follow-up with oncology as outpatient for further treatment. Overall her prognosis is guarded. Discharge discussed with: patient, nurse, social work - Time Spent with Patient Total time spent providing and/or coordinating discharge services: Time spent: Greater than 30 minutes - Discharge Medications Prescriptions: New Diltiazem CD (24hr) [Cardizem CD] 180 mg PO DAILY cap.er.24h Stomatitis Mixture 5 ml PO QID mls Sucralfate [Carafate] 1 gm PO QIDAC tablet Continue Hydralazine HCl 100 mg PO TID Pravastatin Sodium [Pravachol] 80 mg PO HS Oxygen 2 l NS PRN PRN PRN Reason: Shortness Of Breath Aspirin [Lo-Dose Aspirin EC] 81 mg PO DAILY Ferrous Sulfate [Iron] 325 mg PO DAILY Albuterol Neb [Proventil Neb] 2.5 mg IH Q8H PRN PRN Reason: Shortness Of Breath Albuterol Sulfate [Proair Hfa] 2 puff IH Q6H PRN PRN Reason: Cough cloNIDine HCl [Clonidine HCl] 0.3 mg PO TID Fluticasone Propionate Nasal [Flonase] 1 spray NS DAILY Apixaban [Eliquis] 2.5 mg PO BID Carvedilol [Coreg] 25 mg PO BID Gabapentin [Neurontin] 100 mg PO BID Insulin Degludec [Tresiba Flextouch U-200] 45 - 50 unit SQ HS [place]-3/Dha/Epa/Fish Oil [Cvs Fish Oil 1,000 mg Softgel] 1 cap PO DAILY Potassium Chloride 20 meq PO DAILY Losartan [Cozaar] 100 mg PO DAILY tablet Furosemide [Lasix] 40 mg PO DAILY Lidocaine/Prilocaine CREAM [Emla] 1 appl TP AD ALPRAZolam [Xanax 0.5 MG Tablet] 0.5 mg PO BID PRN 3 Days #6 tablet PRN Reason: Anxiety OxyCODONE/APAP 5/325 [Percocet 5/325 MG] 1 tab PO TID PRN 3 Days #3 tablet PRN Reason: Pain Changed Insulin ASPART [Novolog Flexpen] 5 unit SQ TIDAC #0 MDD + SLIDING SCALE Discontinued Diltiazem CD (24hr) [Cardizem CD] 120 mg PO DAILY Dulaglutide [Trulicity] 0.75 mg SQ TH Nitrofurantoin (BID) [Macrobid] 100 mg PO BID #30 capsule Home Medications: Hydralazine HCl 100 mg PO TID 11/29/16 [History] Pravastatin Sodium [Pravachol] 80 mg PO HS 08/08/17 [History] Oxygen 2 l NS PRN PRN 09/22/17 [History] Albuterol Neb [Proventil Neb] 2.5 mg IH Q8H PRN 08/29/18 [History] Albuterol Sulfate [Proair Hfa] 2 puff IH Q6H PRN 08/29/18 [History] Aspirin [Lo-Dose Aspirin EC] 81 mg PO DAILY 08/29/18 [History] Ferrous Sulfate [Iron] 325 mg PO DAILY 08/29/18 [History] Fluticasone Propionate Nasal [Flonase] 1 spray NS DAILY 11/09/18 [History] cloNIDine HCl [Clonidine HCl] 0.3 mg PO TID 11/09/18 [History] Apixaban [Eliquis] 2.5 mg PO BID 11/10/18 [History] Carvedilol [Coreg] 25 mg PO BID 11/10/18 [History] Gabapentin [Neurontin] 100 mg PO BID 11/10/18 [History] Insulin Degludec [Tresiba Flextouch U-200] 45 - 50 unit SQ HS 11/10/18 [History] [place]-3/Dha/Epa/Fish Oil [Cvs Fish Oil 1,000 mg Softgel] 1 cap PO DAILY 11/10/18 [History] Potassium Chloride 20 meq PO DAILY 11/10/18 [History] Losartan [Cozaar] 100 mg PO DAILY tablet 11/12/18 [Rx] Furosemide [Lasix] 40 mg PO DAILY 12/08/18 [History] Lidocaine/Prilocaine CREAM [Emla] 1 appl TP AD 12/09/18 [History] ALPRAZolam [Xanax 0.5 MG Tablet] 0.5 mg PO BID PRN 3 Days #6 tablet 12/17/18 [Rx] Diltiazem CD (24hr) [Cardizem CD] 180 mg PO DAILY cap.er.24h 12/17/18 [Rx] Insulin ASPART [Novolog Flexpen] 5 unit SQ TIDAC #0 MDD + SLIDING SCALE 12/17/18 [Rx] OxyCODONE/APAP 5/325 [Percocet 5/325 MG] 1 tab PO TID PRN 3 Days #3 tablet 12/17/18 [Rx] Stomatitis Mixture 5 ml PO QID mls 12/17/18 [Rx] Sucralfate [Carafate] 1 gm PO QIDAC tablet 12/17/18 [Rx] Allergies/Adverse Reactions: Allergy/AdvReac Type Severity Reaction Status Date / Time Sulfa (Sulfonamide Allergy Severe Swelling Verified 11/30/18 08:51 Antibiotics) of Lip/Tongue/Throat Date of admission: 12/07/18 11:50 Primary care physician: PCP NONE Consults: 12/07/18 07:01 Consult to Wound Care [CONS] Routine Reason for Consult: left lower leg wound Call Completed: No 12/10/18 07:17 Consult to Occupational Therapy [CONS] Routine Comment: Evaluate, develop and implement POC Reason for Consult: metastatic colon cancer, pneumonia, deconditioning Does patient have active BEDREST order?: No Is patient medically & hemodynamically stable?: Yes Consult to Physical Therapy [CONS] Routine Comment: Evaluate, develop and implement POC Reason for Consult: metastatic colon cancer, pneumonia, deconditioning Does patient have active BEDREST order?: No Is patient medically & hemodynamically stable?: Yes 12/10/18 09:24 Consult to Nurse Navigator [CONS] Routine Comment: pneumonia 12/10/18 11:01 Consult to Oncology [CONS] Routine Consulting Provider: [facility] Reason for Consult: History of metastatic colon cancer, leukopenia. Admitted for HCAP Call Completed: Yes 12/13/18 12:26 Consult to Gastroenterology [CONS] Routine Consulting Provider: Gastroenterology [facility] Reason for Consult: mucositis/odynophagia, neutropenia now resolved Call Completed: Yes Discharging clinician: Darius Morel - Constitutional Vitals: Temp Pulse Resp BP Pulse Ox 98.8 F 66 16 129/48 97 12/17/18 11:20 12/17/18 11:20 12/17/18 11:20 12/17/18 11:20 12/17/18 11:20 Exam: General: In no acute distress. Respiratory exam: CTAB. no accessory muscle use, rales, rhonchi, wheezes Cardiovascular exam: Irregular, +S1, +S2. no murmur, gallop, rubs. GI/Abdominal exam: Non-tender, Non-distended, soft, no peritoneal signs. Extremities exam: 1+ pedal edema, no calf tenderness. Neurological exam: CN II-XII intact, AO X2, no focal deficits. - Patient Status Disposition: Transfer SNF - Discharge Instructions Follow Up With: Chayo Alvarado MD [Partnered Physician] - 12/28/18 9:00 am Geremias Ryan DO [Partnered Physician] - 12/19/18 1:00 pm - Diet and Activity Activity: as per physical therapy
--- NOTE | 2018-12-17 16:19 | Physician Discharge Referral ---
ExtendedCare Referral Info Institutional Level of Care: Skilled - Diagnosis (1) Obesity (BMI 30-39.9) Status: Chronic (2) CKD (chronic kidney disease) stage 3, GFR 30-59 ml/min Status: Chronic (3) HTN (hypertension) Status: Chronic (4) Colon cancer metastasized to liver Status: Chronic (5) HCAP (healthcare-associated pneumonia) Status: Acute (6) Chronic diastolic (congestive) heart failure Status: Chronic (7) COPD exacerbation Status: Acute (8) Atrial fibrillation with rapid ventricular response Status: Chronic (9) Metabolic encephalopathy Status: Acute (10) Neutropenia Status: Resolved (11) Mucositis Status: Acute (12) Diarrhea Status: Acute (13) Diabetes Status: Acute (14) Lactic acidosis Status: Resolved (15) Leukocytosis Status: Acute - Transfer Medications Prescriptions: ALPRAZolam [Xanax 0.5 MG Tablet] 0.5 mg PO BID PRN 3 Days #6 tablet PRN Reason: Anxiety OxyCODONE/APAP 5/325 [Percocet 5/325 MG] 1 tab PO TID PRN 3 Days #3 tablet PRN Reason: Pain Home Medications: Hydralazine HCl 100 mg PO TID 11/29/16 [History] Pravastatin Sodium [Pravachol] 80 mg PO HS 08/08/17 [History] Oxygen 2 l NS PRN PRN 09/22/17 [History] Albuterol Neb [Proventil Neb] 2.5 mg IH Q8H PRN 08/29/18 [History] Albuterol Sulfate [Proair Hfa] 2 puff IH Q6H PRN 08/29/18 [History] Aspirin [Lo-Dose Aspirin EC] 81 mg PO DAILY 08/29/18 [History] Ferrous Sulfate [Iron] 325 mg PO DAILY 08/29/18 [History] Fluticasone Propionate Nasal [Flonase] 1 spray NS DAILY 11/09/18 [History] cloNIDine HCl [Clonidine HCl] 0.3 mg PO TID 11/09/18 [History] Apixaban [Eliquis] 2.5 mg PO BID 11/10/18 [History] Carvedilol [Coreg] 25 mg PO BID 11/10/18 [History] Gabapentin [Neurontin] 100 mg PO BID 11/10/18 [History] Insulin Degludec [Tresiba Flextouch U-200] 45 - 50 unit SQ HS 11/10/18 [History] [place]-3/Dha/Epa/Fish Oil [Cvs Fish Oil 1,000 mg Softgel] 1 cap PO DAILY 11/10/18 [History] Potassium Chloride 20 meq PO DAILY 11/10/18 [History] Losartan [Cozaar] 100 mg PO DAILY tablet 11/12/18 [Rx] Furosemide [Lasix] 40 mg PO DAILY 12/08/18 [History] Lidocaine/Prilocaine CREAM [Emla] 1 appl TP AD 12/09/18 [History] ALPRAZolam [Xanax 0.5 MG Tablet] 0.5 mg PO BID PRN 3 Days #6 tablet 12/17/18 [Rx] Diltiazem CD (24hr) [Cardizem CD] 180 mg PO DAILY cap.er.24h 12/17/18 [Rx] Insulin ASPART [Novolog Flexpen] 5 unit SQ TIDAC #0 MDD + SLIDING SCALE 12/17/18 [Rx] OxyCODONE/APAP 5/325 [Percocet 5/325 MG] 1 tab PO TID PRN 3 Days #3 tablet 12/17/18 [Rx] Stomatitis Mixture 5 ml PO QID mls 12/17/18 [Rx] Sucralfate [Carafate] 1 gm PO QIDAC tablet 12/17/18 [Rx] Allergies/Adverse Reactions: Allergy/AdvReac Type Severity Reaction Status Date / Time Sulfa (Sulfonamide Allergy Severe Swelling Verified 11/30/18 08:51 Antibiotics) of Lip/Tongue/Throat - Respiratory Orders Smoking Cessation: Smoking cessation has been advised. For more information, call the [place] Tobacco Quit Line at 5-259-RVFJ-NOW. CERTIFICATION: I certify that the transfer of the above named patient to an Extended Care Facility is necessary for the continuing treatment of the diagnosis listed. The above information is true and accurate reflection of patient's current condit ion. Confidential - Redisclosure prohibited without a patient's written consent.
[2018-12-17] MEDS: ALPRAZolam 0.5 MG TABLET PO PRN (16:54)
[2018-12-17] MEDS: Insulin DETEMIR 100 UNIT/ML X5UNITS SQ SCH (21:12)
[2018-12-18] MEDS: Levalbuterol Neb 0.63 MG/3 ML IH SCH ×3 (03:50→15:53)
[2018-12-18] MEDS: Sucralfate 1 GM TABLET PO SCH ×3 (09:01→16:54)
[2018-12-18] MEDS: Stomatitis Mixture 5 ML UDC PO SCH ×2 (09:01→13:50)
[2018-12-18] MEDS: Furosemide 40 MG TABLET PO SCH (09:02)
[2018-12-18] MEDS: cloNIDine HCl 0.1 MG TABLET PO SCH ×2 (09:02→13:57)
[2018-12-18] MEDS: Aspirin Enteric Coated 81 MG Tablet PO SCH (09:02)
[2018-12-18] MEDS: Apixaban 2.5 MG TABLET PO SCH (09:02)
[2018-12-18] MEDS: Diltiazem CD (24hr) 180 MG CAPSULE PO SCH (09:02)
[2018-12-18] MEDS: Gabapentin 100 MG CAPSULE PO SCH (09:02)
[2018-12-18] MEDS: hydrALAZINE 25 MG TABLET PO SCH ×2 (09:02→13:57)
[2018-12-18] MEDS: Insulin LISPRO 300 UNITS/3 ML VIAL SQ SCH ×6 (09:03→16:55)
--- NOTE | 2018-12-18 11:38 | Internal Med Progress Note ---
Hospitalist Progress Note - Encounter Date of Encounter: 12/18/18 Time of Encounter: 11:37 - Subjective Interval History: Patient seen and examined this morning at bedside. Slightly anxious. Want to know what would happen at halfway. Denies other - Exam Vitals: Temp Pulse Resp BP Pulse Ox 97.3 F L 64 16 121/54 99 12/18/18 07:25 12/18/18 07:25 12/18/18 10:40 12/18/18 07:25 12/18/18 10:40 Exam: General: In no acute distress. Respiratory exam: CTAB. no accessory muscle use, rales, rhonchi, wheezes Cardiovascular exam: Irregular, +S1, +S2. GI/Abdominal exam: Non-tender, Non-distended, soft, no peritoneal signs. Extremities exam: 1+ pedal edema, no calf tenderness. - Assessment and Plan (1) Obesity (BMI 30-39.9) Current Visit: No Status: Chronic (2) CKD (chronic kidney disease) stage 3, GFR 30-59 ml/min Current Visit: No Status: Chronic (3) HTN (hypertension) Current Visit: No Status: Chronic (4) Colon cancer metastasized to liver Current Visit: No Status: Chronic (5) HCAP (healthcare-associated pneumonia) Current Visit: Yes Status: Acute (6) Chronic diastolic (congestive) heart failure Current Visit: No Status: Chronic (7) COPD exacerbation Current Visit: Yes Status: Acute (8) Atrial fibrillation with rapid ventricular response Current Visit: Yes Status: Chronic (9) Metabolic encephalopathy Current Visit: Yes Status: Acute (10) Neutropenia Current Visit: Yes Status: Resolved (11) Mucositis Current Visit: Yes Status: Acute (12) Diarrhea Current Visit: Yes Status: Acute (13) Diabetes Current Visit: Yes Status: Acute (14) Lactic acidosis Current Visit: Yes Status: Resolved (15) Leukocytosis Current Visit: No Status: Acute - Summary of Assessment and Plan Summary of Assessment and Plan: HCAP - Finished vancomycin and Rocephin for a total of 7 days. leukocytosis - Now improving. Possibly related to neupogen and steroids use. Elevated troponin - likely demand ischemia from afib with RVR Metabolic encephalopathy - resolved Colon cancer metastasized to liver - liver mets stable - hold chemotherapy during his acute illness. Plan outpatient follow-up. Appreciate oncology recommendations. Patient to go to SNF today. - Time Spent with Patient Total time spent is greater than 50% in coordination of care (as documented) at patient's floor/unit and/or counseling patient: Internal Medicine: Result - Labs CBC & Chem 7: 12/16/18 00:25 12/16/18 00:25 - ABG Interpretation ABG results: ABG ABG pH 7.42 pH Units (7.32-7.45) 12/12/18 11:11 ABG pCO2 30 mmHg (35-45) L 12/12/18 11:11 ABG pO2 70 mmHg (85-104) L 12/12/18 11:11 ABG O2 Saturation 95 % (95-98) 12/12/18 11:11 PT/INR, D-dimer PT 16.2 Seconds (9.4-12.1) H 12/07/18 07:25 Consult Discharge Plan - Plan Referrals: Chayo Alvarado MD [Partnered Physician] - 12/28/18 9:00 am Geremias Ryan DO [Partnered Physician] - 12/19/18 1:00 pm Prescriptions: ALPRAZolam [Xanax 0.5 MG Tablet] 0.5 mg PO BID PRN 3 Days #6 tablet PRN Reason: Anxiety OxyCODONE/APAP 5/325 [Percocet 5/325 MG] 1 tab PO TID PRN 3 Days #3 tablet PRN Reason: Pain (3) HTN (hypertension) Qualifiers: Hypertension type: essential hypertension Qualified Code(s): I10 - Essential (primary) hypertension (10) Neutropenia Qualifiers: Neutropenia type: due to infection Qualified Code(s): D70.3 - Neutropenia due to infection (12) Diarrhea Qualifiers: Diarrhea type: unspecified type Qualified Code(s): R19.7 - Diarrhea, unspecified (13) Diabetes Qualifiers: Diabetes mellitus type: type 2 Diabetes mellitus intermediate card tender insulin use: with intermediate card tender use Diabetes mellitus complication status: with unspecified complications Qualified Code(s): E11.8 - Type 2 diabetes mellitus with unspecified complications; Z79.4 - care home (current) use of insulin (15) Leukocytosis Qualifiers: Leukocytosis type: unspecified Qualified Code(s): D72.829 - Elevated white blood cell count, unspecified
[2018-12-18 16:38] VITALS: BP 118/65
== END 2018-12-18 17:24 | DRG 177 ==
LOC: 3NENU → SUATTDRO 12-07 00:16 → 2ANU 12-07 20:43 → 2NNU 12-08 05:21 → 2NENU 12-13 16:16
PROVIDERS: ADMIT Internal Medicine; ATTEND Internal Medicine

== ENCOUNTER 2019-01-04 13:17 | Inpatient (IN) ==
[2019-01-04 13:59] LABS: Bilirubin,Urine Negative (Negative); Blood,Urine Negative (Negative); Clarity,Urine Turbid (Clear); Color,Urine Yellow (Yellow); Glucose,Urine (UA) Normal (Normal); Ketones,Urine Negative (Negative); Leukocyte Esterase,Urine Large (Negative); Nitrite,Urine Negative (Negative); PH,Urine 5.5 pH Units (5.0-8.0); Protein,Urine Trace mg/dL (Neg-Trace); Specific Gravity,Urine 1.015 (1.010-1.025); Urobilinogen,Urine Normal (Normal)
[2019-01-04 14:03] LABS: Bacteria,Urine Many per hpf (None-Few); Hyaline Casts,Urine None Seen per lpf (None-Few); Squamous Epithelial Cell,Urine Many per lpf (None-Few); WBC,Urine TNTC per hpf (0-3)
[2019-01-04 14:19] LABS: Basophils # 0.1 K/mcL (0.0-0.2); Basophils % 0.4 %; Eosinophils # 0.5 K/mcL (0.0-0.6); Eosinophils % 3.6 %; Hematocrit 31.6 % (35.3-44.9); Hemoglobin 9.7 g/dL (11.5-15.4); Lymphocytes % 15.4 %; Mean Corpuscular HGB Conc 30.7 g/dL (31.6-35.5); Mean Corpuscular Volume 97.8 fL (83.0-100.0); Mean Platelet Volume 10.5 fL (9.4-12.4); Monocytes # 1.8 K/mcL (0.0-1.3); Monocytes % 13.6 %; Neutrophils # 8.5 K/mcL (1.6-8.9); Platelet Count 325 K/mcL (140-400); Red Blood Count 3.23 M/mcL (3.82-4.97); Red Cell Distribution Width 16.1 % (11.5-14.5)
--- NOTE | 2019-01-04 14:20 | Emergency Department Note ---
Disposition Clinical Impression: Elevated troponin Altered mental status Qualifiers: Altered mental status type: somnolence Qualified Code(s): R40.0 - Somnolence Urinary tract infection Qualifiers: Urinary tract infection type: acute cystitis Hematuria presence: without hematuria Qualified Code(s): N30.00 - Acute cystitis without hematuria Disposition: Admitted As Inpatient Condition: Fair Time of Disposition: 15:21 Altered Mental Status HPI - General Stated Complaint: ams Time Seen by Provider: 01/04/19 13:25 Source: EMS Mode of arrival: EMS Limitations: no limitations Nursing Notes Reviewed: Yes Vital Signs Reviewed: Yes - History of Present Illness HPI Narrative: 73 yo female presents via EMS from [facility]. EMS state they were called with the complaint of inability to walk and confusion. According to the [facility] the patient has been declining in her ability to walk over the past several days and tday she could not walk at all. She is normally fully functional. She appears confused on presentation and can follow simple commands and answer some questions, and states her chest and abdominal do not hurt and she has not had any problems with urination. She is otherwise unable to provide sufficient history. - Related Data Home Medications Medication Instructions Recorded Confirmed Hydralazine HCl 100 mg PO TID 11/29/16 01/04/19 Pravastatin Sodium [Pravachol] 80 mg PO HS 08/08/17 01/04/19 Albuterol Neb [Proventil Neb] 2.5 mg IH Q8H PRN 08/29/18 01/04/19 Albuterol Sulfate [Proair Hfa] 2 puff IH Q6H PRN 08/29/18 01/04/19 Fluticasone Propionate Nasal 1 spray NS DAILY 11/09/18 01/04/19 [Flonase] cloNIDine HCl [Clonidine HCl] 0.3 mg PO TID 11/09/18 01/04/19 Apixaban [Eliquis] 2.5 mg PO BID 11/10/18 01/04/19 Carvedilol [Coreg] 25 mg PO BID 11/10/18 01/04/19 Gabapentin [Neurontin] 100 mg PO BID 11/10/18 01/04/19 Insulin Degludec [Tresiba 45 unit SQ HS 11/10/18 01/04/19 Flextouch U-200] [place]-3/Dha/Epa/Fish Oil [Cvs Fish 1 cap PO DAILY 11/10/18 01/04/19 Oil 1,000 mg Softgel] Potassium Chloride 20 meq PO DAILY 11/10/18 01/04/19 Furosemide [Lasix] 40 mg PO DAILY 12/08/18 01/04/19 ALPRAZolam [Xanax 0.5 MG Tablet] 0.5 mg PO BID 01/04/19 01/04/19 Aspirin [Adult Aspirin Regimen] 81 mg PO DAILY 01/04/19 01/04/19 Dulaglutide [Trulicity] 0.75 mg SQ TH 01/04/19 01/04/19 Ferrous Sulfate 325 mg PO DAILY 01/04/19 01/04/19 Insulin LISPRO [HumaLOG] 5 units SQ TIDAC MDD + SLIDING 01/04/19 01/04/19 SCALE ACHS Lidocaine [Lc-4] 1 appl TP AD 01/04/19 01/04/19 Losartan Potassium 100 mg PO DAILY 01/04/19 01/04/19 Nitrofurantoin (BID) [Macrobid] 100 mg PO BID 01/04/19 01/04/19 OxyCODONE/APAP 5/325 [Percocet 1 tab PO TID PRN 01/04/19 01/04/19 5/325 MG] Sucralfate [Carafate] 1 gm PO ACHS 01/04/19 01/04/19 Previous Rx's Medication Instructions Recorded Diltiazem CD (24hr) [Cardizem CD] 180 mg PO DAILY cap.er.24h 12/17/18 Allergies Allergy/AdvReac Type Severity Reaction Status Date / Time Sulfa (Sulfonamide Allergy Severe Swelling Verified 11/30/18 08:51 Antibiotics) of Lip/Tongue/Throat Limitations: ROS unobtainable due to patients medical condition Past Medical History - Past Medical History Source: old records reviewed Medical history: Reports: arthritis, asthma, atrial fibrillation, cancer, CHF, COPD, coronary artery disease, diabetes, hyperlipidemia, hypertension, myocardial infarction, venous stasis, other Surgical history: Reports: angioplasty/stent, cholecystectomy, colectomy, coronary bypass (CABG), other Psychiatric history: Reports: anxiety, depression TIE PRESSER history: Reports: no TIE PRESSER history - Social History Smoking Status: Never smoker Smokeless Tobacco Status: No Alcohol use: Reports: none Drug use: Reports: none Physical Exam - General Limitations: altered mental status General appearance: alert - Head Head exam: atraumatic, normocephalic - Eye Eye exam: Present: normal appearance, PERRL, EOMI - ENT ENT exam: normal exam, normal oropharynx - Neck Neck exam: Present: normal inspection. Absent: tenderness - Chest Chest inspection: Present: normal inspection. Absent: tenderness - Respiratory Respiratory exam: Present: normal lung sounds bilaterally - Cardiovascular Cardiovascular exam: Present: regular rate, normal rhythm - Abdominal Exam Abdominal exam: Present: soft, Non-Tender. Absent: distention, guarding, rebound, rigidity - Extremities Exam Extremities exam: Present: other (skin tear present on right pak. Chronic wounds on left pak and right knee with appropriate dressings. Wound on left pak with purulent discharge.) - Neurological Exam Neurological exam: Present: alert. Absent: oriented X3 - Psychiatric Psychiatric exam: Present: normal affect, normal mood - Skin Skin exam: Present: warm, dry Course Vital Signs Temperature 97.7 F 01/04/19 13:30 Pulse Rate 56 01/04/19 13:30 Respiratory Rate 16 01/04/19 13:30 Blood Pressure 128/55 01/04/19 13:30 O2 Sat by Pulse Oximetry 92 01/04/19 13:30 Temperature 97.9 F 01/05/19 07:14 Pulse Rate 117 01/05/19 07:14 Respiratory Rate 16 01/05/19 07:14 Blood Pressure 134/80 01/05/19 07:14 O2 Sat by Pulse Oximetry 91 01/05/19 07:14 Oxygen Delivery Oxygen Delivery Room Air Altered Mental Status - [facility] Narrative Medical decision making narrative: Patient presents from [facility] with inability to walk and altered mental status that has been gradual over the past several days. This is concerning for sepsis as the patient has slight wounds that could be a possible source of infection. Patient will undergo altered mental status workup and include wound cultures, XR LLE and head CT. 1440 - urinalysis demonstrates infection and rocephin will be ordered. The patients labwork is otherwise at her baseline. CXR shows stable cardiomegaly. The patient will be admitted for delerium likely secondary to UTI pending head CT results. 1450 - CT scan of the head did not show evidence of acute stroke. There are chronic microvascular changes evident, along with opacification of maxillary and ethmoid sinuses suggestive of possible infection. The patient does not have any nasal discharge or tenderness to palpation of her sinuses, therefore no additional antibiotics will be started on the patient. Hospitalist has been paged for admission of the patient. 1515 - Dr. Fatima has accepted the patient for treatment of her UTI and AMS. - Medical Records Medical records reviewed: Yes I reviewed the patient's medical records. - Lab Data Lab results reviewed: Yes I reviewed the patient's lab results. Result diagrams: 01/05/19 05:34 01/05/19 05:08 Lab Results 01/04/19 01/04/19 01/04/19 Range/Units 13:23 13:45 13:45 WBC (4.3-11.1) K/mcL RBC (3.82-4.97) M/mcL Hgb (11.5-15.4) g/dL Hct (35.3-44.9) % MCV (83.0-100.0) fL MCH (28.0-33.3) pg MCHC (31.6-35.5) g/dL RDW (11.5-14.5) % Plt Count (140-400) K/mcL MPV (9.4-12.4) fL Immature Gran % (0-4) % Seg Neutrophils % % Lymphocytes % % Monocytes % % Eosinophils % % Basophils % % Neutrophils # (1.6-8.9) K/mcL Lymphocytes # (0.6-4.6) K/mcL Monocytes # (0.0-1.3) K/mcL Eosinophils # (0.0-0.6) K/mcL Basophils # (0.0-0.2) K/mcL PT (9.4-12.1) Seconds INR APTT (26.0-36.0) Seconds Sodium (136-145) mEq/L Potassium (3.5-5.1) mEq/L Chloride (98-107) mEq/L Carbon Dioxide (23-29) mEq/L BUN (8-23) mg/dL Creatinine (0.60-1.20) mg/dL Est GFR ( Amer) (> 60) Est GFR (Non-Af Amer) (> 60) BUN/Creatinine Ratio (6-26) Glucose (70-105) mg/dL POC Glucose 75 (70-99) mg/dL Calculated Osmolality (280-300) Lactic Acid (0.5-2.2) mmol/L Calcium (8.6-10.3) mg/dL Total Bilirubin (0.3-1.0) mg/dL Direct Bilirubin (0.0-0.2) mg/dL Indirect Bilirubin (0.0-1.2) mg/dL AST (13-39) Units/L ALT (7-52) Units/L Alkaline Phosphatase (34-104) Units/L Ammonia (16-53) mcmol/L Creatine Kinase (30-223) Units/L Troponin I (< 0.04) ng/mL Serum Total Protein (6.4-8.9) g/dL Albumin (3.5-5.7) g/dL Globulin (2.4-3.5) g/dL Albumin/Globulin Ratio (1.1-2.2) TSH (0.340-5.600) mcIU/mL Urine Color Yellow (Yellow) Urine Clarity Turbid A (Clear) Urine pH 5.5 (5.0-8.0) pH Units Ur Specific [place] 1.015 (1.010-1.025) Urine Protein Trace (Neg-Trace) mg/dL Urine Glucose (UA) Normal (Normal) mg/dL Urine Ketones Negative (Negative) mg/dL Urine Blood Negative (Negative) Urine Nitrite Negative (Negative) Urine Bilirubin Negative (Negative) Urine Urobilinogen Normal (Normal) mg/dL Ur Leukocyte Esterase Large H (Negative) Urine Microscopic RBC 5-15 H (0-3) per hpf Urine Microscopic WBC TNTC H (0-3) per hpf Ur Squamous Epith Cells Many H (None-Few) per lpf Urine Bacteria Many H (None-Few) per hpf Hyaline Casts None Seen (None-Few) per lpf Ur Culture Indicated? YES A (NO) Urine Opiates Screen Negative (Lduwjp=458) ng/mL Ur Barbiturates Screen Negative (Vbprua=014) ng/mL Ur Phencyclidine Scrn Negative (Cutoff=25) ng/mL Ur Amphetamines Screen Negative (Ybdbsz=5218) ng/mL U Benzodiazepines Scrn Positive H (Laliio=226) ng/mL Urine Cocaine Screen Negative (Cutoff= 300) ng/mL U Marijuana (THC) Screen Negative (Cutoff = 50) ng/mL Ur Drug Screen Interp See Below 05/10/19 05/10/19 05/10/19 Range/Units 13:53 13:53 13:53 WBC 12.9 H (4.3-11.1) K/mcL RBC 3.23 L (3.82-4.97) M/mcL Hgb 9.7 L (11.5-15.4) g/dL Hct 31.6 L (35.3-44.9) % MCV 97.8 (83.0-100.0) fL MCH 30.0 (28.0-33.3) pg MCHC 30.7 L (31.6-35.5) g/dL RDW 16.1 H (11.5-14.5) % Plt Count 325 (140-400) K/mcL MPV 10.5 (9.4-12.4) fL Immature Gran % 1.0 (0-4) % Seg Neutrophils % 66.0 % Lymphocytes % 15.4 % Monocytes % 13.6 % Eosinophils % 3.6 % Basophils % 0.4 % Neutrophils # 8.5 (1.6-8.9) K/mcL Lymphocytes # 2.0 (0.6-4.6) K/mcL Monocytes # 1.8 H (0.0-1.3) K/mcL Eosinophils # 0.5 (0.0-0.6) K/mcL Basophils # 0.1 (0.0-0.2) K/mcL PT 14.5 H (9.4-12.1) Seconds INR 1.3 APTT 31.9 (26.0-36.0) Seconds Sodium (136-145) mEq/L Potassium (3.5-5.1) mEq/L Chloride (98-107) mEq/L Carbon Dioxide (23-29) mEq/L BUN (8-23) mg/dL Creatinine (0.60-1.20) mg/dL Est GFR ( Amer) (> 60) Est GFR (Non-Af Amer) (> 60) BUN/Creatinine Ratio (6-26) Glucose (70-105) mg/dL POC Glucose (70-99) mg/dL Calculated Osmolality (280-300) Lactic Acid (0.5-2.2) mmol/L Calcium (8.6-10.3) mg/dL Total Bilirubin (0.3-1.0) mg/dL Direct Bilirubin (0.0-0.2) mg/dL Indirect Bilirubin (0.0-1.2) mg/dL AST (13-39) Units/L ALT (7-52) Units/L Alkaline Phosphatase (34-104) Units/L Ammonia 36 (16-53) mcmol/L Creatine Kinase (30-223) Units/L Troponin I (< 0.04) ng/mL Serum Total Protein (6.4-8.9) g/dL Albumin (3.5-5.7) g/dL Globulin (2.4-3.5) g/dL Albumin/Globulin Ratio (1.1-2.2) TSH (0.340-5.600) mcIU/mL Urine Color (Yellow) Urine Clarity (Clear) Urine pH (5.0-8.0) pH Units Ur Specific [place] (1.010-1.025) Urine Protein (Neg-Trace) mg/dL Urine Glucose (UA) (Normal) mg/dL Urine Ketones (Negative) mg/dL Urine Blood (Negative) Urine Nitrite (Negative) Urine Bilirubin (Negative) Urine Urobilinogen (Normal) mg/dL Ur Leukocyte Esterase (Negative) Urine Microscopic RBC (0-3) per hpf Urine Microscopic WBC (0-3) per hpf Ur Squamous Epith Cells (None-Few) per lpf Urine Bacteria (None-Few) per hpf Hyaline Casts (None-Few) per lpf Ur Culture Indicated? (NO) Urine Opiates Screen (Lueoky=108) ng/mL Ur Barbiturates Screen (Eejeic=378) ng/mL Ur Phencyclidine Scrn (Cutoff=25) ng/mL Ur Amphetamines Screen (Msjnlv=1972) ng/mL U Benzodiazepines Scrn (Espuyu=320) ng/mL Urine Cocaine Screen (Cutoff= 300) ng/mL U Marijuana (THC) Screen (Cutoff = 50) ng/mL Ur Drug Screen Interp 01/04/19 01/04/19 Range/Units 13:53 13:53 WBC (4.3-11.1) K/mcL RBC (3.82-4.97) M/mcL Hgb (11.5-15.4) g/dL Hct (35.3-44.9) % MCV (83.0-100.0) fL MCH (28.0-33.3) pg MCHC (31.6-35.5) g/dL RDW (11.5-14.5) % Plt Count (140-400) K/mcL MPV (9.4-12.4) fL Immature Gran % (0-4) % Seg Neutrophils % % Lymphocytes % % Monocytes % % Eosinophils % % Basophils % % Neutrophils # (1.6-8.9) K/mcL Lymphocytes # (0.6-4.6) K/mcL Monocytes # (0.0-1.3) K/mcL Eosinophils # (0.0-0.6) K/mcL Basophils # (0.0-0.2) K/mcL PT (9.4-12.1) Seconds INR APTT (26.0-36.0) Seconds Sodium 139 (136-145) mEq/L Potassium 4.1 (3.5-5.1) mEq/L Chloride 108 H (98-107) mEq/L Carbon Dioxide 22 L (23-29) mEq/L BUN 46 H (8-23) mg/dL Creatinine 1.50 H (0.60-1.20) mg/dL Est GFR ( Amer) 41 L (> 60) Est GFR (Non-Af Amer) 34 L (> 60) BUN/Creatinine Ratio 31 H (6-26) Glucose 67 L (70-105) mg/dL POC Glucose (70-99) mg/dL Calculated Osmolality 298 (280-300) Lactic Acid 1.2 (0.5-2.2) mmol/L Calcium 8.7 (8.6-10.3) mg/dL Total Bilirubin 0.3 (0.3-1.0) mg/dL Direct Bilirubin 0.1 (0.0-0.2) mg/dL Indirect Bilirubin 0.2 (0.0-1.2) mg/dL AST 18 (13-39) Units/L ALT 15 (7-52) Units/L Alkaline Phosphatase 138 H (34-104) Units/L Ammonia (16-53) mcmol/L Creatine Kinase 21 L (30-223) Units/L Troponin I 0.04 H* (< 0.04) ng/mL Serum Total Protein 6.7 (6.4-8.9) g/dL Albumin 2.7 L (3.5-5.7) g/dL Globulin 4.0 H (2.4-3.5) g/dL Albumin/Globulin Ratio 0.7 L (1.1-2.2) TSH 0.127 L (0.340-5.600) mcIU/mL Urine Color (Yellow) Urine Clarity (Clear) Urine pH (5.0-8.0) pH Units Ur Specific [place] (1.010-1.025) Urine Protein (Neg-Trace) mg/dL Urine Glucose (UA) (Normal) mg/dL Urine Ketones (Negative) mg/dL Urine Blood (Negative) Urine Nitrite (Negative) Urine Bilirubin (Negative) Urine Urobilinogen (Normal) mg/dL Ur Leukocyte Esterase (Negative) Urine Microscopic RBC (0-3) per hpf Urine Microscopic WBC (0-3) per hpf Ur Squamous Epith Cells (None-Few) per lpf Urine Bacteria (None-Few) per hpf Hyaline Casts (None-Few) per lpf Ur Culture Indicated? (NO) Urine Opiates Screen (Igzije=181) ng/mL Ur Barbiturates Screen (Ibuxlq=418) ng/mL Ur Phencyclidine Scrn (Cutoff=25) ng/mL Ur Amphetamines Screen (Urpnjy=4379) ng/mL U Benzodiazepines Scrn (Daklzc=658) ng/mL Urine Cocaine Screen (Cutoff= 300) ng/mL U Marijuana (THC) Screen (Cutoff = 50) ng/mL Ur Drug Screen Interp - Radiology Data Radiology results reviewed: Yes I reviewed the patient's radiology results. - EKG Data EKG attestation: Yes I reviewed and interpreted this EKG. EKG results narrative: EKG obtained at 13:31 on 01/04/2019 Heart rate 83 be determined, QRS duration 122, QT 427, QTC 471 Atrial fibrillation with right bundle branch block. No signs of ST segment elevations or depressions. No changes when compared to previous EKG dated 12/14/2018 with the exception of the rate. TPA Checklist - LKW: 3-4.5 hrs Add. Warnings/Precautions Patient/family understanding: The patient/family members have been counseled and understood the risk, benefit, and alternatives of treatment. Attestation Statement - Attestation Attestation: Resident Attestation: I examined this patient and my medical decision making was reviewed with the Resident Physician. I agree with the documented findings, disposition and treatment plan as described except to the extent set forth below. We independently had [id number] contact with the patient. Presenting from [facility] for evaluation of altered mental status. Progressively worse over the last week. Unable to walk today which she apparently can walk at baseline. Initial glucose 75. Patient able to answer basic questions yes and no but otherwise unable to give further history. Patient does have chronic wounds to the right knee as well as the left leg which is been dressed. Patient does have some purulent drainage to both of these sites. No associated knee effusion. Patient does have swelling and erythema to the left lower leg. She does have a skin tear over the anterior portion of the right pak. The patient's abdomen is soft nontender palpation. Lungs are clear to auscultation bilaterally. Patient will undergo further evaluation for altered mental status including infectious workup.
[2019-01-04 14:22] LABS: INR 1.3; Prothrombin Time 14.5 Seconds (9.4-12.1)
[2019-01-04 14:25] LABS: Activated Partial Thrombo Time 31.9 Seconds (26.0-36.0)
[2019-01-04] MEDS ORDERED: cefTRIAXone 1,000 MG in Water for inj. (sterile) 20 ML 10 ML IVP ONE (14:25)
[2019-01-04 14:32] LABS: Amphetamine Screen,Urine Negative ng/mL (Cutoff=1000); Barbiturate Screen,Urine Negative ng/mL (Cutoff=200); Benzodiazepines Screen,Urine Positive ng/mL (Cutoff=200); Cannabinoid Screen,Urine Negative ng/mL (Cutoff = 50); Cocaine Screen,Urine Negative ng/mL (Cutoff= 300); Opiate Screen,Urine Negative ng/mL (Cutoff=300); Phencyclidine Screen,Urine Negative ng/mL (Cutoff=25)
[2019-01-04 14:51] LABS: Albumin 2.7 g/dL (3.5-5.7); Albumin/Globulin Ratio 0.7 (1.1-2.2); Bilirubin,Direct 0.1 mg/dL (0.0-0.2); Bilirubin,Indirect 0.2 mg/dL (0.0-1.2); Bilirubin,Total 0.3 mg/dL (0.3-1.0); Calcium 8.7 mg/dL (8.6-10.3); Potassium 4.1 mEq/L (3.5-5.1); Total Protein 6.7 g/dL (6.4-8.9); Troponin I 0.04 ng/mL (< 0.04)
[2019-01-04 14:54] LABS: Thyroid Stimulating Hormone 0.127 mcIU/mL (0.340-5.600)
[2019-01-04] MEDS ORDERED: 0.9 % Sodium Chloride 1,000 ML IVC ONE (15:14)
[2019-01-04] MEDS ORDERED: Naloxone 0.4 MG/ML INJ IVP PRN (16:14)
[2019-01-04] MEDS ORDERED: 0.9 % Sodium Chloride 1,000 ML IVC SCH (16:15)
[2019-01-04] MEDS ORDERED: D5% in Water 1,000 ML IVC PRN (16:20)
[2019-01-04] MEDS ORDERED: *HR* Dextrose 50 % in Water (Syg) 50 ML SYRINGE IVP PRN (16:20)
[2019-01-04] MEDS ORDERED: Dextrose Gel 15 GM/37.5 ML TUBE PO PRN ×2 (16:20)
[2019-01-04] MEDS ORDERED: Albuterol 2.5 MG/3 ML NEBULIZER IH PRN (16:26)
--- NOTE | 2019-01-04 17:15 | Internal Med History&Physical ---
<Sabina Gutierrez - Last Filed: 01/04/19 18:09> Date of Encounter: 01/04/19 Time of Encounter: 17:10 Internal Medicine - H&P: HPI Chief complaint: Altered mental status Admitted From[facility] Plans for Post Hospital Care: Transfer [facility] Facility History of present illness: Ms. Hitchcock is a 73 year old female presenting with altered mental status as well as urinary tract infection. She has a past medical history of atrial fibrillation, asthma, colon cancer with metastasis to kidney, liver who is in between chemotherapy treatments, skin cancer, preserved ejection fraction heart failure, COPD, coronary artery disease status post 2 stents in 2003 and CABG in 2013, prior IA, diabetes mellitus, hyperlipidemia, hypertension, venous stasis, anxiety. She has had prior UTIs with previous cultures positive for MRSA, Escherichia coli, enterococcus faecalis. Patient was in a good state of health, able to ambulate and hold conversations about 3 weeks ago when she was admitted for pneumonia, once discharged she was placed at [facility]. Per her family who is at bedside they state that her mental status has never completely recovered since this admission for pneumonia. They state that in fact it has progressively worsened. They state that she has stopped talking, she is not responding to questions over the past few days, and also decreased the amount of ambulation that she has been doing, she has not been getting out of bed. The family states that she has had 3 falls over the past several weeks including 1 recent fall which caused a laceration to her right pak. She also has a left pak stage II ulcer that she has wound care for as well as decubitus ulcers on her heels bilaterally. CODE STATUS was discussed with family, they state that she is currently full code. Past Med Surg Social Fam HX - Past Medical History Medical history: arthritis, asthma, atrial fibrillation, cancer, CHF, COPD, coronary artery disease, diabetes, hyperlipidemia, hypertension, myocardial infarction, venous stasis, other Additional medical history: Sleep apnea, Osteoporosis, Liver lesions, Pneumonia, UTI, type II diabetes Psychiatric history: anxiety, depression - Past Surgical History Surgical History: angioplasty/stent, cholecystectomy, colectomy, coronary bypass (CABG), other Additional surgical history: Left nephrectomy- 2017, Excision of RLE mass 2017, colon resection,2-stents during heart cath - Social History Smoking Status: Never smoker Smokeless Tobacco Status: No Alcohol use: none Drug use: none - Family History Father Family Member Ethnicity: Non- Living Status: Hx Family Cardiac Disorders: Yes ( of IA) Hx Family Respiratory Disorders: No Hx Family Cancer: No Hx Family GI Disorders: No Hx Family Endocrine Disorder: No Hx Family Neuromuscular Disorders: No Hx Family Neurologic Disorders: No Hx Family HEENT Disorders: No Hx Family Autoimmune Disorders: No Brother Family Member Ethnicity: Non- Living Status: Hx Family Cancer: Yes (Throat) Sister Family Member Ethnicity: Non- Living Status: Still Living Hx Family Respiratory Disorders: Yes (Emphysema) Hx Family Cancer: Yes (Breast) Mother Family Member Ethnicity: Non- Living Status: Hx Family Cardiac Disorders: No Hx Family Respiratory Disorders: Yes (asthma) Hx Family Cancer: Yes Hx Family GI Disorders: No Hx Family Endocrine Disorder: No Hx Family Neuromuscular Disorders: No Hx Family Neurologic Disorders: No Hx Family HEENT Disorders: No Hx Family Autoimmune Disorders: No Internal Medicine - H&P: Meds Hydralazine HCl 100 mg PO TID 11/29/16 [History] Pravastatin Sodium [Pravachol] 80 mg PO HS 08/08/17 [History] Albuterol Neb [Proventil Neb] 2.5 mg IH Q8H PRN 08/29/18 [History] Albuterol Sulfate [Proair Hfa] 2 puff IH Q6H PRN 08/29/18 [History] Fluticasone Propionate Nasal [Flonase] 1 spray NS DAILY 11/09/18 [History] cloNIDine HCl [Clonidine HCl] 0.3 mg PO TID 11/09/18 [History] Apixaban [Eliquis] 2.5 mg PO BID 11/10/18 [History] Carvedilol [Coreg] 25 mg PO BID 11/10/18 [History] Gabapentin [Neurontin] 100 mg PO BID 11/10/18 [History] Insulin Degludec [Tresiba Flextouch U-200] 45 unit SQ HS 11/10/18 [History] [place]-3/Dha/Epa/Fish Oil [Cvs Fish Oil 1,000 mg Softgel] 1 cap PO DAILY 11/10/18 [History] Potassium Chloride 20 meq PO DAILY 11/10/18 [History] Furosemide [Lasix] 40 mg PO DAILY 12/08/18 [History] Diltiazem CD (24hr) [Cardizem CD] 180 mg PO DAILY cap.er.24h 12/17/18 [Rx] ALPRAZolam [Xanax 0.5 MG Tablet] 0.5 mg PO BID 01/04/19 [History] Aspirin [Adult Aspirin Regimen] 81 mg PO DAILY 01/04/19 [History] Dulaglutide [Trulicity] 0.75 mg SQ TH 01/04/19 [History] Ferrous Sulfate 325 mg PO DAILY 01/04/19 [History] Insulin LISPRO [HumaLOG] 5 units SQ TIDAC MDD + SLIDING SCALE ACHS 01/04/19 [History] Lidocaine [Lc-4] 1 appl TP AD 01/04/19 [History] Losartan Potassium 100 mg PO DAILY 01/04/19 [History] Nitrofurantoin (BID) [Macrobid] 100 mg PO BID 01/04/19 [History] OxyCODONE/APAP 5/325 [Percocet 5/325 MG] 1 tab PO TID PRN 01/04/19 [History] Sucralfate [Carafate] 1 gm PO ACHS 01/04/19 [History] Allergy/AdvReac Type Severity Reaction Status Date / Time Sulfa (Sulfonamide Allergy Severe Swelling Verified 11/30/18 08:51 Antibiotics) of Lip/Tongue/Throat ROS unobtainable: due to mental status All Systems PM: A 10-system review of systems was performed and is negative for pertinent findings except as documented above in the HPI. - Constitutional Vitals: Temp Pulse Resp BP Pulse Ox 97.5 F L 72 16 125/60 91 01/04/19 16:41 01/04/19 16:41 01/04/19 16:41 01/04/19 16:41 01/04/19 16:41 Exam: Gen: Vitals noted. Lethargic. HEENT: PERRL/EOMI, oropharynx clear, Normocephalic, atraumatic, mucus membranes dry Cardiac: regular rate, irregular rhythm, no murmur, +S1/S2, radial and dorsal pedis pulses 2+ and symmetrical Pulmonary: Diminished breath sounds bilaterally, no wheezes, rales or rhonchi, equal chest expansion Abdomen: soft, nontender, BS noted, no guarding, no rebound. MSK: ROM intact, no joint swelling noted Extremities: 1+ edema bilaterally, approximately 3 inch laceration to right pak, granulated lesion on right knee, 1.5 inch ulcer to left pak, bilateral stage 1 decubitus ulcers on heels. No erythema or drainage from any of these lesions, no asymmetrical warmth. Neuro: Lethargic, unable to appropriately assess Psych: Unable to assess Internal Med - H&P Results - Labs CBC & Chem 7: 01/04/19 13:53 01/04/19 13:53 Labs: Short CBC 01/04/19 Range/Units 13:53 WBC 12.9 H (4.3-11.1) K/mcL Hgb 9.7 L (11.5-15.4) g/dL Hct 31.6 L (35.3-44.9) % Plt Count 325 (140-400) K/mcL Neutrophils # 8.5 (1.6-8.9) K/mcL BMP 01/04/19 13:53 Sodium 139 Potassium 4.1 Chloride 108 H Carbon Dioxide 22 L BUN 46 H Creatinine 1.50 H Glucose 67 L Calcium 8.7 Cardiac Enzymes 01/04/19 Range/Units 13:53 Troponin I 0.04 H* (< 0.04) ng/mL Liver Function 01/04/19 Range/Units 13:53 Total Bilirubin 0.3 (0.3-1.0) mg/dL Direct Bilirubin 0.1 (0.0-0.2) mg/dL AST 18 (13-39) Units/L ALT 15 (7-52) Units/L Alkaline Phosphatase 138 H (34-104) Units/L Albumin 2.7 L (3.5-5.7) g/dL Urine 01/04/19 Range/Units 13:45 Urine Color Yellow (Yellow) Urine Clarity Turbid A (Clear) Urine pH 5.5 (5.0-8.0) pH Units Ur Specific [place] 1.015 (1.010-1.025) Urine Protein Trace (Neg-Trace) mg/dL Urine Glucose (UA) Normal (Normal) mg/dL - Impressions ITS Impressions Tibia/Fibula X-Ray 01/04/19 13:26 IMPRESSION: No acute bony abnormalities. No x-ray evidence for osteomyelitis. Diffuse subcutaneous edema to the left lower extremity. No radiopaque foreign bodies or soft tissue gas. Diffuse bone demineralization. Degenerative changes to the left knee. D/ / 01/04/2019 14:17:55 Jorge Grant MD / venkat Interpreting Provider: Jorge Grant MD Chest X-Ray 01/04/19 13:27 IMPRESSION: Stable bibasilar atelectasis Mild cardiomegaly D/ / Taiwo Dennis MD / Taiwo Dennis MD Interpreting Provider: Taiwo Dennis MD Head CT 01/04/19 13:28 IMPRESSION: No acute intracranial abnormality. Diffuse atrophic changes with findings suggesting chronic microvascular ischemia Partial opacification of the maxillary and ethmoid sinuses bilaterally, correlate for signs of infection D/ / Jesu De La Cruz MD / Jesu De La Cruz MD Interpreting Provider: Jesu De La Cruz MD - Assessment and Plan (1) Altered mental status Current Visit: Yes Status: Acute Assessment and plan: Patient presents from nursing facility with altered mental status Per family she has not returned to baseline since admission for pneumonia about 3 weeks ago Patient somnolent, able to follow commands Suspect secondary to metabolic encephalopathy due to urinary tract infection, dehydration as she has had decreased by mouth intake Patient has had recent increase in Xanax dosing Electrolytes overall within normal limits CT head shows no acute intracranial abnormality, chronic microvascular disease, and partial opacification of maxillary and ethmoid sinuses bilaterally Chest x-ray shows stable bibasilar atelectasis and mild cardiomegaly EKG significant for atrial fibrillation, no ST segment elevation or depression Elevated troponin 0.04, although this is improved from her baseline will continue to trend troponins This patient has had recent pneumonia as well as lung nodules seen on imaging, consider chest CT This patient has metastatic adenocarcinoma of colon, may consider MRI brain with contrast Will continue maintenance fluids Antibiotic coverage with vancomycin, ceftriaxone Fall precautions Qualifiers: Altered mental status type: somnolence Qualified Code(s): R40.0 - Somnolence (2) Metabolic encephalopathy Current Visit: Yes Status: Acute Assessment and plan: Suspected to be metabolic encephalopathy secondary to infection Management as above (3) Urinary tract infection Current Visit: Yes Status: Acute Assessment and plan: Patient found to have urinary tract infection Suspect this is contributing to altered mental status urinalysis positive for leukocyte esterase, red blood cells, white blood cells, bacteria Blood culture is pending Prior urinary tract infections-MRSA, Escherichia coli, enterococcus faecalis Antibiotic coverage with vancomycin and Rocephin De-escalate pending culture results Qualifiers: Urinary tract infection type: acute cystitis Hematuria presence: without hematuria Qualified Code(s): N30.00 - Acute cystitis without hematuria (4) Elevated troponin Current Visit: Yes Status: Acute Assessment and plan: Patient found to have elevated troponin 0.04 Suspect secondary to infection, renal function, demand ischemia Review of chart reveals this to be improved from baseline EKG significant for atrial fibrillation, no ST segment elevation or depression or signs of ischemia Will continue to trend troponin (5) Ulcer of leg, chronic, left Current Visit: Yes Status: Acute Assessment and plan: Patient has and ulcer on her left pak This is chronic, does not appear to be infected, has serosanguineous drainage, no purulence X-ray of left tibia fibula- no acute bony abnormalities, no evidence for osteomyelitis, positive for diffuse subcutaneous edema, no foreign bodies or soft tissue gas, diffuse bone demineralization, degenerative changes left knee. Has had wound care treating the ulcer We will consult wound care Qualifiers: Non-pressure ulcer stage: with fat layer exposed Qualified Code(s): L97.922 - Non-pressure chronic ulcer of unspecified part of left lower leg with fat layer exposed (6) Low TSH level Current Visit: Yes Status: Acute Assessment and plan: Patient found to have a low TSH level of 0.127 In 2016 she had an ultrasound of the thyroid which showed a 2.3 cm solid nodule which was subsequently biopsied and found to be benign Further workup with free T4 level (7) CKD (chronic kidney disease) stage 3, GFR 30-59 ml/min Current Visit: Yes Status: Chronic Assessment and plan: History of stage III CTD Status post nephrectomy At her baseline Creatinine currently 1.50, GFR 34 Renally dose medications and avoid nephrotoxic agents (8) HTN (hypertension) Current Visit: Yes Status: Chronic Assessment and plan: History of hypertension Continue home medications clonidine, carvedilol Holding home medications losartan as blood pressures are stable Qualifiers: Hypertension type: essential hypertension Qualified Code(s): I10 - Essential (primary) hypertension (9) CHF (congestive heart failure) Current Visit: No Status: Chronic Assessment and plan: History of preserved ejection fraction heart failure Last echo 10/2018- LVEF 55-60%, indeterminate diastolic function, mild concentric LVH, mild to moderate mitral regurgitation, moderate tricuspid regurgitation, moderate pulmonary hypertension Not currently exacerbated-patient is mildly edematous in her lower extremities however no rhonchi on exam and mucous membranes dry Lasix currently being held secondary to suspected dehydration due to decreased by mouth intake Qualifiers: Heart failure type: unspecified Heart failure chronicity: unspecified Qualified Code(s): I50.9 - Heart failure, unspecified (10) PAF (paroxysmal atrial fibrillation) Current Visit: Yes Status: Chronic Assessment and plan: History of atrial fibrillation EKG significant for atrial fibrillation, no ST segment elevation or depression Anticoagulation with Eliquis on hold secondary to fall risk Continue carvedilol, diltiazem Anticoagulation with Lovenox (11) Coronary artery disease Current Visit: Yes Status: Acute Assessment and plan: History of coronary artery disease, prior IA, stents 2 placed in 2003 and CABG in 2013 Continue home medication-aspirin, carvedilol Hold pravastatin EKG showed atrial fibrillation, no ST segment elevation or depression Qualifiers: Coronary Disease-Associated Artery/Lesion type: unspecified vessel or lesion type Tribe vs. transplanted heart: [place] heart Associated angina: without angina Qualified Code(s): I25.10 - Atherosclerotic heart disease of [place] coronary artery without angina pectoris (12) Multiple malignancies Current Visit: Yes Status: Chronic Assessment and plan: History of adenocarcinoma of colon with metastasis to kidney and liver, diagnosed 3 years ago She is currently in between palliative chemotherapy treatments, last dose 11/30/18. She has a right chest port and is status post nephrectomy Also history of suspected skin cancer that was previously removed from her nose She follows at [facility] (13) DVT prophylaxis Current Visit: Yes Status: Acute Assessment and plan: Lovenox. Patient is chronically anticoagulated using eliquis however with altered mental status and a recent history of at least 3 falls will hold Eliquis and use lovenox instead. - Time Spent With Patient Total time spent is greater than 50% in coordination of care (as documented) at patient's floor/unit and/or counseling patient: <Frank Wynn - Last Filed: 01/04/19 18:20> Date of Encounter: 01/04/19 Internal Medicine - H&P: HPI History of present illness: Ms. Hitchcock is a 73 year old female All Systems PM: A 10-system review of systems was performed and is negative for pertinent findings except as documented above in the HPI. - Constitutional Vitals: Temp Pulse Resp BP Pulse Ox 97.5 F L 72 16 125/60 91 01/04/19 16:41 01/04/19 16:41 01/04/19 16:41 01/04/19 16:41 01/04/19 16:41 Internal Med - H&P Results - Labs CBC & Chem 7: 01/04/19 13:53 01/04/19 13:53 Labs: Short CBC 01/04/19 Range/Units 13:53 WBC 12.9 H (4.3-11.1) K/mcL Hgb 9.7 L (11.5-15.4) g/dL Hct 31.6 L (35.3-44.9) % Plt Count 325 (140-400) K/mcL Neutrophils # 8.5 (1.6-8.9) K/mcL BMP 01/04/19 13:53 Sodium 139 Potassium 4.1 Chloride 108 H Carbon Dioxide 22 L BUN 46 H Creatinine 1.50 H Glucose 67 L Calcium 8.7 Cardiac Enzymes 01/04/19 Range/Units 13:53 Troponin I 0.04 H* (< 0.04) ng/mL Liver Function 01/04/19 Range/Units 13:53 Total Bilirubin 0.3 (0.3-1.0) mg/dL Direct Bilirubin 0.1 (0.0-0.2) mg/dL AST 18 (13-39) Units/L ALT 15 (7-52) Units/L Alkaline Phosphatase 138 H (34-104) Units/L Albumin 2.7 L (3.5-5.7) g/dL Urine 01/04/19 Range/Units 13:45 Urine Color Yellow (Yellow) Urine Clarity Turbid A (Clear) Urine pH 5.5 (5.0-8.0) pH Units Ur Specific [place] 1.015 (1.010-1.025) Urine Protein Trace (Neg-Trace) mg/dL Urine Glucose (UA) Normal (Normal) mg/dL - Impressions ITS Impressions Tibia/Fibula X-Ray 01/04/19 13:26 IMPRESSION: No acute bony abnormalities. No x-ray evidence for osteomyelitis. Diffuse subcutaneous edema to the left lower extremity. No radiopaque foreign bodies or soft tissue gas. Diffuse bone demineralization. Degenerative changes to the left knee. D/ / 01/04/2019 14:17:55 Jorge Grant MD / venkat Interpreting Provider: Jorge Grant MD Chest X-Ray 01/04/19 13:27 IMPRESSION: Stable bibasilar atelectasis Mild cardiomegaly D/ / Taiwo Dennis MD / Taiwo Dennis MD Interpreting Provider: Taiwo Dennis MD Head CT 01/04/19 13:28 IMPRESSION: No acute intracranial abnormality. Diffuse atrophic changes with findings suggesting chronic microvascular ischemia Partial opacification of the maxillary and ethmoid sinuses bilaterally, correlate for signs of infection D/ / Jesu De La Cruz MD / Jesu De La Cruz MD Interpreting Provider: Jesu De La Cruz MD - Time Spent With Patient Total time spent is greater than 50% in coordination of care (as documented) at patient's floor/unit and/or counseling patient: - Attending Attestation I examined this patient and my medical decision-making was reviewed with the Resident Physician. I agree with the documented findings, disposition and treatment plan as described except to the extent set forth below. 73 year old female with multiple co morbidities presents from SNF for AMS, namely falls, and confusion, lethargy. This has been gradually worsening for some weeks but now more obvious. Family members at bedside providing history. In ED urinalysis was consistent with UTI. She was recently here for pneumonia and discharged to SNF. Troponin borderline elevated. Per daughter, she was recently scheduled Xanax (was taken previous as-needed). VS: reviewed, stable. Patient does appear somnolent with large body habitus, snoring. Cardiac auscultation unremarkable. Skin: findings with lacerations with no active bleeding. right knee ulcer that does not appear infected. left lower extremity has an ulcer as well that without any purulent drainage. physical exam limited due to patient mental status and position of laying in bed. She is responsive to stimuli and can cooperate with commands. For altered mental status. This is likely due to UTI. But other differentials include benzodiazepine use (was recently scheduled instead of as-needed), intracranial process (CT without contrast was negative however), or other. Will monitor for improvement with antibiotics and reassess. Afib, continue medications but Eliquis will be held since she is a fall risk. Family history reviewed and non-contributory.
[2019-01-04] MEDS ORDERED: Vancomycin 1 EACH in 0.9 % Sodium Chloride 250 ML IVPB SCH (18:00)
[2019-01-04] MEDS: Insulin LISPRO 300 UNITS/3 ML VIAL SQ SCH (18:03)
[2019-01-04] MEDS: Lidocaine 4% CREAM (LMX) 5 GM TP SCH (18:09)
[2019-01-04] MEDS: cloNIDine HCl 0.1 MG TABLET PO SCH (20:24)
[2019-01-04] MEDS ORDERED: Apixaban 2.5 MG TABLET PO SCH (21:00)
[2019-01-04] MEDS ORDERED: ALPRAZolam 0.5 MG TABLET PO SCH (21:00)
[2019-01-05] MEDS: OXYCODONE Oral CONC 10 MG/0.5 ML ORAL.SYG SL PRN ×4 (00:31→15:57)
[2019-01-05] MEDS: Insulin LISPRO 300 UNITS/3 ML VIAL SQ SCH ×4 (00:49→16:12)
[2019-01-05] MEDS: *HR* Enoxaparin 40 MG/0.4 ML SYRINGE SQ SCH (05:26)
[2019-01-05] MEDS: Diltiazem CD (24hr) 180 MG CAPSULE PO SCH (05:26)
[2019-01-05 05:43] LABS: Calcium 8.4 mg/dL (8.6-10.3); Potassium 4.3 mEq/L (3.5-5.1); Troponin I 0.03 ng/mL (< 0.04)
[2019-01-05] MEDS: cefTRIAXone 1,000 MG in Water for inj. (sterile) 20 ML 10 ML IVP SCH (07:43)
[2019-01-05] MEDS: Aspirin Enteric Coated 81 MG Tablet PO SCH (07:43)
[2019-01-05] MEDS: cloNIDine HCl 0.1 MG TABLET PO SCH ×3 (07:43→21:36)
[2019-01-05] MEDS ORDERED: ALPRAZolam 0.5 MG TABLET PO ONE (08:00)
[2019-01-05] MEDS ORDERED: *HR* Metoprolol 5 MG/5 ML VIAL IVP STA (08:12)
[2019-01-05 09:54] LABS: Basophils # 0.1 K/mcL (0.0-0.2); Basophils % 0.4 %; Eosinophils # 0.3 K/mcL (0.0-0.6); Hematocrit 27.9 % (35.3-44.9); Hemoglobin 8.7 g/dL (11.5-15.4); Immature Granulocytes % 1.2 % (0-4); Lymphocytes # 1.7 K/mcL (0.6-4.6); Lymphocytes % 12.3 %; Mean Corpuscular HGB Conc 31.2 g/dL (31.6-35.5); Mean Corpuscular Hemoglobin 30.1 pg (28.0-33.3); Mean Corpuscular Volume 96.5 fL (83.0-100.0); Mean Platelet Volume 11.2 fL (9.4-12.4); Monocytes # 1.8 K/mcL (0.0-1.3); Monocytes % 12.8 %; Neutrophils # 9.8 K/mcL (1.6-8.9); Platelet Count 246 K/mcL (140-400); Red Blood Count 2.89 M/mcL (3.82-4.97); Red Cell Distribution Width 16.2 % (11.5-14.5); Segmented Neutrophils % 71.3 %
--- NOTE | 2019-01-05 12:09 | Internal Med Progress Note ---
<Sabina Gutierrez - Last Filed: 01/05/19 12:20> Hospitalist Progress Note - Encounter Date of Encounter: 01/05/19 Time of Encounter: 12:06 - Subjective Interval History: Patient seen and examined at bedside today. Patient is awake however she is lethargic, somewhat agitated, oriented 0. She is able to follow commands and squeezes hands. She continues to say "oh God" during exam. Nursing staff states that this morning she pulled her Membreno out and has been either sleep, or awake and mildly agitated and confused. Review of systems unobtainable - Exam Vitals: Temp Pulse Resp BP Pulse Ox 97.9 F 117 16 134/80 91 01/05/19 07:14 01/05/19 07:14 01/05/19 07:14 01/05/19 07:14 01/05/19 07:14 Exam: Gen: Vitals noted. Awake, mildly agitated, oriented 0. HEENT: PERRL/EOMI, oropharynx clear, Normocephalic, atraumatic, MMM Cardiac: RRR, no murmur, +S1/S2, radial and dorsal pedis pulses 3+ and symmetrical Pulmonary: CTA bilaterally, no wheezes, rales or rhonchi, equal chest expansion Abdomen: soft, nontender, BS noted, no guarding, no rebound. MSK: ROM intact, no joint swelling noted Extremities: 1+ pitting edema bilaterally, no calf tenderness, no cyanosis or clubbing. Wounds on lower extremities are dressed and dry. Neuro: A&Ox0, moves all extremities, no focal deficits Psych: Unable to assess - Assessment and Plan (1) Altered mental status Current Visit: Yes Status: Acute Assessment and Plan: Minimally improved, patient is awake, and she is verbalizing "oh god" repeatedly Able follow commands Suspect secondary to metabolic encephalopathy-urinary tract infection, dehydration CT head shows no acute intracranial abnormality, chronic microvascular disease, and partial opacification of maxillary and ethmoid sinuses bilaterally Chest x-ray shows stable bibasilar atelectasis and mild cardiomegaly Decreased TSH however free T4 normal Electrolyte overall within normal limits Renal function at baseline Troponins 0.04, 0.04, 0.03 EKG shows atrial fibrillation, no ST segment changes Blood culture, urine culture, wound cultures pending Will do chest CT to evaluate for possible pneumonia as her leukocytosis has increased We will check pro-calcitonin Continue antibiotic coverage vancomycin, ceftriaxone due to Fall precautions (2) Metabolic encephalopathy Current Visit: Yes Status: Acute Assessment and Plan: Suspect secondary to infection Management as above (3) Urinary tract infection Current Visit: Yes Status: Acute Assessment and Plan: Urine and blood culture pending Prior urinary tract infections-MRSA, Escherichia coli, enterococcus faecalis Antibiotic coverage with vancomycin and Rocephin De-escalate pending culture results (4) Elevated troponin Current Visit: Yes Status: Resolved Assessment and Plan: Result Suspect secondary to infection, decreased renal function and demand ischemia Troponins 0.04, 0.04, 0.03 EKG showed atrial fibrillation without ST segment changes (5) Ulcer of leg, chronic, left Current Visit: Yes Status: Acute Assessment and Plan: Ulcer on left pak X-ray of left tibia fibula- no acute bony abnormalities, no evidence for osteomyelitis, positive for diffuse subcutaneous edema, no foreign bodies or soft tissue gas, diffuse bone demineralization, degenerative changes left knee. Continue wound care (6) Low TSH level Current Visit: Yes Status: Acute Assessment and Plan: Low TSH 0.127 Free T4 within normal limits Suspect sick euthyroid (7) CKD (chronic kidney disease) stage 3, GFR 30-59 ml/min Current Visit: Yes Status: Chronic Assessment and Plan: At baseline Status post nephrectomy Creatinine currently 1.20, GFR 34 Renally dose medications avoid nephrotoxic agents (8) HTN (hypertension) Current Visit: Yes Status: Chronic Assessment and Plan: Continue home medications clonidine, carvedilol Continue to hold valsartan (9) CHF (congestive heart failure) Current Visit: Yes Status: Chronic Assessment and Plan: Not currently exacerbated Mild edema to lower extremities, lungs clear, mucous membranes dry Continue to hold Lasix (10) PAF (paroxysmal atrial fibrillation) Current Visit: Yes Status: Chronic Assessment and Plan: Rate control with carvedilol, diltiazem Anticoagulation with Lovenox [place] on hold secondary to fall risk When necessary metoprolol for heart rate over 110 (11) Coronary artery disease Current Visit: Yes Status: Acute (12) Multiple malignancies Current Visit: Yes Status: Chronic Assessment and Plan: 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 Currently in between palliative chemotherapy treatments Right chest port History of suspected skin cancer Follows with [facility] (13) DVT prophylaxis Current Visit: Yes Status: Acute Assessment and Plan: Lovenox - Time Spent with Patient Total time spent is greater than 50% in coordination of care (as documented) at patient's floor/unit and/or counseling patient: Internal Medicine: Result - Labs CBC & Chem 7: 01/05/19 05:34 01/05/19 05:08 Labs: Short CBC 01/04/19 01/05/19 Range/Units 13:53 05:34 WBC 12.9 H 13.7 H (4.3-11.1) K/mcL Hgb 9.7 L 8.7 L (11.5-15.4) g/dL Hct 31.6 L 27.9 L (35.3-44.9) % Plt Count 325 246 (140-400) K/mcL Neutrophils # 8.5 9.8 H (1.6-8.9) K/mcL BMP 01/04/19 01/05/19 13:53 05:08 Sodium 139 139 Potassium 4.1 4.3 Chloride 108 H 114 H Carbon Dioxide 22 L 18 L BUN 46 H 40 H Creatinine 1.50 H 1.20 Glucose 67 L 72 Calcium 8.7 8.4 L Cardiac Enzymes 01/04/19 01/04/19 01/05/19 Range/Units 13:53 19:40 05:08 Troponin I 0.04 H* 0.04 H* 0.03 (< 0.04) ng/mL Liver Function 01/04/19 Range/Units 13:53 Total Bilirubin 0.3 (0.3-1.0) mg/dL Direct Bilirubin 0.1 (0.0-0.2) mg/dL AST 18 (13-39) Units/L ALT 15 (7-52) Units/L Alkaline Phosphatase 138 H (34-104) Units/L Albumin 2.7 L (3.5-5.7) g/dL Urine 01/04/19 Range/Units 13:45 Urine Color Yellow (Yellow) Urine Clarity Turbid A (Clear) Urine pH 5.5 (5.0-8.0) pH Units Ur Specific [place] 1.015 (1.010-1.025) Urine Protein Trace (Neg-Trace) mg/dL Urine Glucose (UA) Normal (Normal) mg/dL - ABG Interpretation ABG results: PT/INR, D-dimer PT 14.5 Seconds (9.4-12.1) H 01/04/19 13:53 - Impressions Impressions Tibia/Fibula X-Ray 01/04/19 13:26 IMPRESSION: No acute bony abnormalities. No x-ray evidence for osteomyelitis. Diffuse subcutaneous edema to the left lower extremity. No radiopaque foreign bodies or soft tissue gas. Diffuse bone demineralization. Degenerative changes to the left knee. D/ / 01/04/2019 14:17:55 Jorge Grant MD / venkat Interpreting Provider: Jorge Grant MD Chest X-Ray 01/04/19 13:27 IMPRESSION: Stable bibasilar atelectasis Mild cardiomegaly D/ / Taiwo Dennis MD / Taiwo Dennis MD Interpreting Provider: Taiwo Dennis MD Head CT 01/04/19 13:28 IMPRESSION: No acute intracranial abnormality. Diffuse atrophic changes with findings suggesting chronic microvascular ischemia Partial opacification of the maxillary and ethmoid sinuses bilaterally, correlate for signs of infection D/ / Jesu De La Cruz MD / Jesu De La Cruz MD Interpreting Provider: Jesu De La Cruz MD Consult Discharge Plan - Plan Referrals: NONE,PCP [Primary Care Provider] - <Frank Wynn - Last Filed: 01/05/19 15:08> Hospitalist Progress Note - Encounter Date of Encounter: 01/05/19 - Exam Vitals: Temp Pulse Resp BP Pulse Ox 97.9 F 117 16 134/80 91 01/05/19 07:14 01/05/19 07:14 01/05/19 07:14 01/05/19 07:14 01/05/19 07:14 - Time Spent with Patient Total time spent is greater than 50% in coordination of care (as documented) at patient's floor/unit and/or counseling patient: Internal Medicine: Result - Labs CBC & Chem 7: 01/05/19 05:34 01/05/19 05:08 Labs: Short CBC 01/05/19 Range/Units 05:34 WBC 13.7 H (4.3-11.1) K/mcL Hgb 8.7 L (11.5-15.4) g/dL Hct 27.9 L (35.3-44.9) % Plt Count 246 (140-400) K/mcL Neutrophils # 9.8 H (1.6-8.9) K/mcL BMP 01/05/19 05:08 Sodium 139 Potassium 4.3 Chloride 114 H Carbon Dioxide 18 L BUN 40 H Creatinine 1.20 Glucose 72 Calcium 8.4 L Cardiac Enzymes 01/04/19 01/05/19 Range/Units 19:40 05:08 Troponin I 0.04 H* 0.03 (< 0.04) ng/mL - ABG Interpretation ABG results: PT/INR, D-dimer PT 14.5 Seconds (9.4-12.1) H 01/04/19 13:53 - Impressions Impressions Tibia/Fibula X-Ray 01/04/19 13:26 IMPRESSION: No acute bony abnormalities. No x-ray evidence for osteomyelitis. Diffuse subcutaneous edema to the left lower extremity. No radiopaque foreign bodies or soft tissue gas. Diffuse bone demineralization. Degenerative changes to the left knee. D/ / 01/04/2019 14:17:55 Jorge Grant MD / venkat Interpreting Provider: Jorge Grant MD - Attending Attestation I examined this patient and my medical decision-making was reviewed with the Resident Physician. I agree with the documented findings, disposition and treatment plan as described except to the extent set forth below. <Sabina Gutierrez - Last Filed: 01/05/19 12:20> (1) Altered mental status Qualifiers: Altered mental status type: somnolence Qualified Code(s): R40.0 - Somnolence (3) Urinary tract infection Qualifiers: Urinary tract infection type: acute cystitis Hematuria presence: without hematuria Qualified Code(s): N30.00 - Acute cystitis without hematuria (5) Ulcer of leg, chronic, left Qualifiers: Non-pressure ulcer stage: with fat layer exposed Qualified Code(s): L97.922 - Non-pressure chronic ulcer of unspecified part of left lower leg with fat layer exposed (8) HTN (hypertension) Qualifiers: Hypertension type: essential hypertension Qualified Code(s): I10 - Essential (primary) hypertension (9) CHF (congestive heart failure) Qualifiers: Heart failure type: unspecified Heart failure chronicity: unspecified Qualified Code(s): I50.9 - Heart failure, unspecified (11) Coronary artery disease Qualifiers: Coronary Disease-Associated Artery/Lesion type: unspecified vessel or lesion type [place] vs. transplanted heart: [place] heart Associated angina: without angina Qualified Code(s): I25.10 - Atherosclerotic heart disease of [place] coronary artery without angina pectoris
[2019-01-05] MEDS: ALPRAZolam 0.25 MG TABLET PO PRN ×2 (13:46→21:36)
[2019-01-05] MEDS: Lidocaine 4% CREAM (LMX) 5 GM TP SCH (15:58)
[2019-01-06] MEDS: OXYCODONE Oral CONC 10 MG/0.5 ML ORAL.SYG SL PRN ×4 (00:17→17:03)
[2019-01-06 01:39] LABS: Basophils # 0.1 K/mcL (0.0-0.2); Basophils % 0.4 %; Eosinophils # 0.3 K/mcL (0.0-0.6); Eosinophils % 2.5 %; Hematocrit 29.9 % (35.3-44.9); Hemoglobin 8.7 g/dL (11.5-15.4); Immature Granulocytes % 0.7 % (0-4); Lymphocytes # 1.7 K/mcL (0.6-4.6); Lymphocytes % 13.5 %; Mean Corpuscular HGB Conc 29.1 g/dL (31.6-35.5); Mean Corpuscular Hemoglobin 29.6 pg (28.0-33.3); Mean Corpuscular Volume 101.7 fL (83.0-100.0); Mean Platelet Volume 10.7 fL (9.4-12.4); Monocytes # 1.8 K/mcL (0.0-1.3); Monocytes % 14.4 %; Neutrophils # 8.4 K/mcL (1.6-8.9); Platelet Count 282 K/mcL (140-400); Red Blood Count 2.94 M/mcL (3.82-4.97); Red Cell Distribution Width 16.3 % (11.5-14.5); Segmented Neutrophils % 68.5 %
[2019-01-06 01:59] LABS: Calcium 8.6 mg/dL (8.6-10.3); Potassium 4.2 mEq/L (3.5-5.1)
[2019-01-06] MEDS: Insulin LISPRO 300 UNITS/3 ML VIAL SQ SCH ×5 (03:55→23:46)
[2019-01-06] MEDS: *HR* Metoprolol 5 MG/5 ML VIAL IVP PRN ×2 (03:58→17:40)
[2019-01-06] MEDS: *HR* Enoxaparin 40 MG/0.4 ML SYRINGE SQ SCH (05:48)
[2019-01-06] MEDS: cefTRIAXone 1,000 MG in Water for inj. (sterile) 20 ML 10 ML IVP SCH (08:01)
[2019-01-06] MEDS: Aspirin Enteric Coated 81 MG Tablet PO SCH (08:01)
[2019-01-06] MEDS: Diltiazem CD (24hr) 180 MG CAPSULE PO SCH (08:02)
[2019-01-06] MEDS: cloNIDine HCl 0.1 MG TABLET PO SCH ×3 (08:02→17:14)
[2019-01-06] MEDS ORDERED: Aminoglycoside Consult 1 EACH MC ONE (08:54)
[2019-01-06] MEDS: ALPRAZolam 0.25 MG TABLET PO PRN ×2 (11:39→21:30)
[2019-01-06 13:35] LABS: Estimated Average Glucose 148 mg/dl; Hemoglobin A1C 6.8 %
--- NOTE | 2019-01-06 13:47 | Electrocardiograph Report ---
[address] [place] [address] Test Date: 2019-01-04 Pat Name: Katie Hitchcock Department: EXAM12 Room: 3B12 Gender: F [place]: : 1945 Requested By: Abimbola Cloud Order Number: [id number] Reading MD: Aleksandar Ramirez Measurements Intervals [place] Rate: 83 P: VA: QRS: 50 QRSD: 122 T: 57 QT: 427 QTc: 471 Interpretive Statements Atrial fibrillation Right bundle branch block Possible anterior infarct, old Electronically Signed On 01-06-2019 13:46:25 EDT by Aleksandar Ramirez
--- NOTE | 2019-01-06 14:43 | Internal Med Progress Note ---
<Sabina Gutierrez - Last Filed: 01/06/19 14:53> Hospitalist Progress Note - Encounter Date of Encounter: 01/06/19 Time of Encounter: 14:42 - Subjective Interval History: Patient seen and examined at bedside today. Daughter is also at bedside. Patient is awake, alert and oriented 0. She remains able to follow commands. She shook her head no when asked about pain however she is unable to give a review of systems. Suspect she has had some improvement now that Xanax dose has been decreased. CT chest overnight showed and interval improvement in aeration of lungs with some poorly defined nodules in the apex of the right lung possibly inflammatory infectious and less likely metastatic. Discussed care with daughter. - Exam Vitals: Temp Pulse Resp BP Pulse Ox 97.0 F L 75 17 137/74 90 01/06/19 11:33 01/06/19 11:33 01/06/19 11:33 01/06/19 11:33 01/06/19 11:33 Exam: Gen: Vitals noted. A&Ox0, less agitated, holding daughter's hand. HEENT: PERRL/EOMI, oropharynx clear, Normocephalic, atraumatic, MMM Cardiac: RRR, no murmur, +S1/S2, radial and dorsal pedis pulses 3+ and symmetrical Pulmonary: CTA bilaterally, no wheezes, rales or rhonchi, equal chest expansion Abdomen: soft, nontender, BS noted, no guarding, no rebound. MSK: ROM intact, no joint swelling noted Extremities: 1+ pitting edema bilaterally to knees, no calf tenderness, no cyanosis or clubbing. Wounds on lower extremities are dressed and dry. Neuro: A&Ox0, moves all extremities, no focal deficits Psych: Unable to assess - Assessment and Plan (1) Altered mental status Current Visit: Yes Status: Acute Assessment and Plan: Somewhat improved, patient is awake, appears to recognize daughter and is holding her hand Remains able to follow commands during exam Continue to suspect secondary to metabolic encephalopathy-urinary tract infection and dehydration Chest CT overnight showed interval improvement in aeration of lungs which suggests treatment for probable inflammatory or infectious process. Newly poorly defined nodules in the apex of the right lung, possibly residual inflammatory or infectious disease or less likely metastatic disease. Stable mediastinal lymphadenopathy, stable poorly visualized liver masses Electrolytes stable Renal function at baseline Blood culture and wound cultures remain pending Urine culture positive for Klebsiella oxytoca which is sensitive to ceftriaxone Continue antibiotic coverage-ceftriaxone day 2 Fall precautions (2) Metabolic encephalopathy Current Visit: Yes Status: Acute Assessment and Plan: Management as above (3) Urinary tract infection Current Visit: Yes Status: Acute Assessment and Plan: Urine culture positive for Klebsiella oxytoca Sensitivities to Rocephin Prior urinary tract infections-MRSA, Escherichia coli, enterococcus faecalis Continue Rocephin (4) Elevated troponin Current Visit: Yes Status: Resolved Assessment and Plan: Resolved Suspect secondary to infection, demand ischemia Continuous cardiac monitoring (5) Ulcer of leg, chronic, left Current Visit: Yes Status: Acute Assessment and Plan: Ulcer of left pak X-ray of left tibia fibula- no acute bony abnormalities, no evidence for o steomyelitis, positive for diffuse subcutaneous edema, no foreign bodies or soft tissue gas, diffuse bone demineralization, degenerative changes left knee. Continue wound care (6) CKD (chronic kidney disease) stage 3, GFR 30-59 ml/min Current Visit: Yes Status: Chronic Assessment and Plan: At baseline Status post nephrectomy Creatinine currently 1.16 Renally dose medications and avoid nephrotoxic agents (7) HTN (hypertension) Current Visit: Yes Status: Chronic Assessment and Plan: Controlled Continue home medication clonidine, carvedilol. 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 Currently in between palliative chemotherapy treatments Right chest port History of suspected skin cancer Follows with [facility] (11) DVT prophylaxis Current Visit: Yes Status: Acute Assessment and Plan: Lovenox - Time Spent with Patient Total time spent is greater than 50% in coordination of care (as documented) at patient's floor/unit and/or counseling patient: Internal Medicine: Result - Labs CBC & Chem 7: 01/06/19 00:25 01/06/19 00:25 Labs: Short CBC 01/06/19 Range/Units 00:25 WBC 12.3 H (4.3-11.1) K/mcL Hgb 8.7 L (11.5-15.4) g/dL Hct 29.9 L (35.3-44.9) % Plt Count 282 (140-400) K/mcL Neutrophils # 8.4 (1.6-8.9) K/mcL BMP 01/06/19 00:25 Sodium 142 Potassium 4.2 Chloride 113 H Carbon Dioxide 21 L BUN 35 H Creatinine 1.16 Glucose 80 Calcium 8.6 - ABG Interpretation ABG results: PT/INR, D-dimer PT 14.5 Seconds (9.4-12.1) H 01/04/19 13:53 - Impressions Impressions Chest CT 01/05/19 12:39 IMPRESSION: Interval improvement in aeration lungs suggesting treatment for probable inflammatory/infectious process. There are however new poorly defined nodules in the apex of the right lung. The possibility of residual inflammatory or infectious disease or less likely metastatic disease is raised. Attention on follow-up is recommended. Stable mediastinal lymphadenopathy. Stable poorly visualized liver masses. D/ / 01/05/2019 15:25:40 Kirk Tyler MD / venkat Interpreting Provider: Kirk Tyler MD Consult Discharge Plan - Plan Referrals: Clyde Fabian MD [Partnered Physician] - (Appointment has been requested. ) NONE,PCP [Primary Care Provider] - <Frank Wynn - Last Filed: 01/06/19 15:26> Hospitalist Progress Note - Encounter Date of Encounter: 01/06/19 - Exam Vitals: Temp Pulse Resp BP Pulse Ox 97.0 F L 75 17 137/74 90 01/06/19 11:33 01/06/19 11:33 01/06/19 11:33 01/06/19 11:33 01/06/19 11:33 - Time Spent with Patient Total time spent is greater than 50% in coordination of care (as documented) at patient's floor/unit and/or counseling patient: Internal Medicine: Result - Labs CBC & Chem 7: 01/06/19 00:25 01/06/19 00:25 Labs: Short CBC 01/06/19 Range/Units 00:25 WBC 12.3 H (4.3-11.1) K/mcL Hgb 8.7 L (11.5-15.4) g/dL Hct 29.9 L (35.3-44.9) % Plt Count 282 (140-400) K/mcL Neutrophils # 8.4 (1.6-8.9) K/mcL BMP 01/06/19 00:25 Sodium 142 Potassium 4.2 Chloride 113 H Carbon Dioxide 21 L BUN 35 H Creatinine 1.16 Glucose 80 Calcium 8.6 - ABG Interpretation ABG results: PT/INR, D-dimer PT 14.5 Seconds (9.4-12.1) H 01/04/19 13:53 - Impressions Impressions Chest CT 01/05/19 12:39 IMPRESSION: Interval improvement in aeration lungs suggesting treatment for probable inflammatory/infectious process. There are however new poorly defined nodules in the apex of the right lung. The possibility of residual inflammatory or infectious disease or less likely metastatic disease is raised. Attention on follow-up is recommended. Stable mediastinal lymphadenopathy. Stable poorly visualized liver masses. D/ / 01/05/2019 15:25:40 Kirk Tyler MD / venkat Interpreting Provider: Kirk Tyler MD - Attending Attestation I examined this patient and my medical decision-making was reviewed with the Resident Physician. I agree with the documented findings, disposition and treatment plan as described except to the extent set forth below. Anticipate patient will be here greater than 2 midnights. <Sabina Gutierrez - Last Filed: 01/06/19 14:53> (1) Altered mental status Qualifiers: Altered mental status type: somnolence Qualified Code(s): R40.0 - Somnolence (3) Urinary tract infection Qualifiers: Urinary tract infection type: acute cystitis Hematuria presence: without hematuria Qualified Code(s): N30.00 - Acute cystitis without hematuria (5) Ulcer of leg, chronic, left Qualifiers: Non-pressure ulcer stage: with fat layer exposed Qualified Code(s): L97.922 - Non-pressure chronic ulcer of unspecified part of left lower leg with fat layer exposed (7) HTN (hypertension) Qualifiers: Hypertension type: essential hypertension Qualified Code(s): I10 - Essential (primary) hypertension (8) CHF (congestive heart failure) Qualifiers: Heart failure type: unspecified Heart failure chronicity: unspecified Qualified Code(s): I50.9 - Heart failure, unspecified
[2019-01-06] MEDS: Lidocaine 4% CREAM (LMX) 5 GM TP SCH (16:45)
[2019-01-07] MEDS: OXYCODONE Oral CONC 10 MG/0.5 ML ORAL.SYG SL PRN ×4 (03:30→21:55)
[2019-01-07 05:58] LABS: Basophils % 0.4 %; Eosinophils # 0.2 K/mcL (0.0-0.6); Eosinophils % 1.8 %; Hematocrit 30.6 % (35.3-44.9); Hemoglobin 9.1 g/dL (11.5-15.4); Immature Granulocytes % 0.8 % (0-4); Lymphocytes # 1.6 K/mcL (0.6-4.6); Lymphocytes % 15.6 %; Mean Corpuscular HGB Conc 29.7 g/dL (31.6-35.5); Mean Corpuscular Hemoglobin 29.4 pg (28.0-33.3); Mean Platelet Volume 10.9 fL (9.4-12.4); Monocytes # 1.5 K/mcL (0.0-1.3); Monocytes % 14.9 %; Neutrophils # 6.7 K/mcL (1.6-8.9); Platelet Count 274 K/mcL (140-400); Red Blood Count 3.09 M/mcL (3.82-4.97); Red Cell Distribution Width 15.9 % (11.5-14.5); Segmented Neutrophils % 66.5 %
[2019-01-07 06:15] LABS: Calcium 9.3 mg/dL (8.6-10.3); Potassium 4.5 mEq/L (3.5-5.1)
[2019-01-07] MEDS: Insulin LISPRO 300 UNITS/3 ML VIAL SQ SCH ×3 (06:21→17:21)
[2019-01-07] MEDS: *HR* Enoxaparin 40 MG/0.4 ML SYRINGE SQ SCH (06:35)
[2019-01-07] MEDS: Aspirin Enteric Coated 81 MG Tablet PO SCH (07:27)
[2019-01-07] MEDS: ALPRAZolam 0.25 MG TABLET PO PRN ×2 (07:27→20:08)
[2019-01-07] MEDS: cloNIDine HCl 0.1 MG TABLET PO SCH ×3 (07:28→20:08)
[2019-01-07] MEDS ORDERED: Aminoglycoside Consult 1 EACH MC ONE (07:35)
[2019-01-07] MEDS: cefTRIAXone 1,000 MG in Water for inj. (sterile) 20 ML 10 ML IVP SCH (10:01)
[2019-01-07] MEDS: Diltiazem CD (24hr) 180 MG CAPSULE PO SCH (10:18)
[2019-01-07] MEDS: Lidocaine 4% CREAM (LMX) 5 GM TP SCH (15:34)
--- NOTE | 2019-01-07 16:53 | Internal Med Progress Note ---
<Sabina Gutierrez - Last Filed: 01/07/19 17:04> Hospitalist Progress Note - Encounter Date of Encounter: 01/07/19 Time of Encounter: 16:51 - Subjective Interval History: Patient seen and examined at bedside today. She remained alert and oriented 1, able to follow commands. Daughter, who is POA is at bedside. Patient continues to have intermittent episodes of agitation and remains in a delirious state. Discussed goals of care with POA. - Exam Vitals: Temp Pulse Resp BP Pulse Ox 97.0 F L 137 19 175/82 93 01/07/19 16:08 01/07/19 16:08 01/07/19 16:08 01/07/19 16:08 01/07/19 16:08 Exam: Gen: Vitals noted. A&Ox0, lying on her side in bed, holding onto Benadryl. HEENT: PERRL/EOMI, oropharynx clear, Normocephalic, atraumatic, MMM Cardiac: RRR, no murmur, +S1/S2, radial and dorsal pedis pulses 3+ and symmetrical Pulmonary: Diminished breath sounds bilaterally, no wheezes, rales or rhonchi, equal chest expansion Abdomen: soft, nontender, BS noted, no guarding, no rebound. MSK: ROM intact, no joint swelling noted Extremities: 1+ pitting edema bilaterally to knees, no calf tenderness, no cyanosis or clubbing. Wounds on lower extremities are dressed and dry. Small abrasions noted on arms. Neuro: A&Ox0, moves all extremities, no focal deficits Psych: Unable to assess - Assessment and Plan (1) Altered mental status Current Visit: Yes Status: Acute Assessment and Plan: Patient continues to have delirium. Her daughter states that she was able to validate in recognition of her today. Is still able to follow commands. Suspect secondary to metabolic encephalopathy due to infections urinary tract infection, possible wound infection. Electrolytes remained stable Renal function at baseline, dehydration improved Blood cultures remain pending Urine culture positive for left klebsiella oxytoca Left leg wound culture shows gram-negative sandra Right knee wound culture shows gram-positive cocci, presumably MRSA Antibiotics expanded for MRSA coverage-ceftriaxone, doxycycline Continue to monitor (2) Metabolic encephalopathy Current Visit: Yes Status: Acute Assessment and Plan: see management as above (3) Urinary tract infection Current Visit: Yes Status: Acute Assessment and Plan: Urine culture positive for Klebsiella oxytoca Day 3 of 7 of Rocephin If improvement in mental status, possibly switch to Keflex (4) Ulcer of leg, chronic, left Current Visit: Yes Status: Acute Assessment and Plan: Multiple lower extremity wounds Right knee wound culture positive for gram-positive cocci suspected MRSA Left leg ulcer positive for gram-negative sandra Continue antibiotic coverage ceftriaxone day 3, begin doxycycline day 1 Continue wound care (5) CKD (chronic kidney disease) stage 3, GFR 30-59 ml/min Current Visit: Yes Status: Chronic Assessment and Plan: Renal function continues to improve Status post nephrectomy Creatinine currently 1.08 Renally dose medications and avoid nephrotoxic agents (6) HTN (hypertension) Current Visit: Yes Status: Chronic Assessment and Plan: Blood pressure slowly elevating Continue clonidine, carvedilol. Will restart valsartan as renal function stable (7) CHF (congestive heart failure) Current Visit: Yes Status: Chronic Assessment and Plan: Not in exacerbation Mild edema of lower extremities Continue to hold Lasix (8) PAF (paroxysmal atrial fibrillation) Current Visit: Yes Status: Chronic Assessment and Plan: Rate control with carvedilol, diltiazem Discussed anticoagulation with POA. She has had several falls over the past few weeks and is not currently a good candidate for full anticoagulation to risk of bleeding. Discussed risks and benefits of using or withholding anticoagulation and POA in agreement to continue to hold her Eliquis with follow-up with PCP in regards to restarting it on discharge. 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 Currently in between palliative chemotherapy treatments Right chest port History of suspected skin cancer Follows with [facility] (10) DVT prophylaxis Current Visit: Yes Status: Acute Assessment and Plan: Prophylactic Lovenox - Time Spent with Patient Total time spent is greater than 50% in coordination of care (as documented) at patient's floor/unit and/or counseling patient: Internal Medicine: Result - Labs CBC & Chem 7: 01/07/19 04:33 01/07/19 04:33 Labs: Short CBC 01/07/19 Range/Units 04:33 WBC 10.0 (4.3-11.1) K/mcL Hgb 9.1 L (11.5-15.4) g/dL Hct 30.6 L (35.3-44.9) % Plt Count 274 (140-400) K/mcL Neutrophils # 6.7 (1.6-8.9) K/mcL [facility] 01/07/19 04:33 Sodium 146 H Potassium 4.5 Chloride 114 H Carbon Dioxide 24 BUN 32 H Creatinine 1.08 Glucose 102 Calcium 9.3 - ABG Interpretation ABG results: PT/INR, D-dimer PT 14.5 Seconds (9.4-12.1) H 01/04/19 13:53 Consult Discharge Plan - Plan Referrals: Olvin Gaming DPM [Partnered Physician] - <Frank Wynn - Last Filed: 01/07/19 17:45> Hospitalist Progress Note - Encounter Date of Encounter: 01/07/19 - Exam Vitals: Temp Pulse Resp BP Pulse Ox 97.0 F L 137 19 175/82 93 01/07/19 16:08 01/07/19 16:08 01/07/19 16:08 01/07/19 16:08 01/07/19 16:08 - Time Spent with Patient Total time spent is greater than 50% in coordination of care (as documented) at patient's floor/unit and/or counseling patient: Internal Medicine: Result - Labs CBC & Chem 7: 01/07/19 04:33 01/07/19 04:33 Labs: Short CBC 01/07/19 Range/Units 04:33 WBC 10.0 (4.3-11.1) K/mcL Hgb 9.1 L (11.5-15.4) g/dL Hct 30.6 L (35.3-44.9) % Plt Count 274 (140-400) K/mcL Neutrophils # 6.7 (1.6-8.9) K/mcL [facility] 01/07/19 04:33 Sodium 146 H Potassium 4.5 Chloride 114 H Carbon Dioxide 24 BUN 32 H Creatinine 1.08 Glucose 102 Calcium 9.3 - ABG Interpretation ABG results: PT/INR, D-dimer PT 14.5 Seconds (9.4-12.1) H 01/04/19 13:53 - Attending Attestation I examined this patient and my medical decision-making was reviewed with the Resident Physician. I agree with the documented findings, disposition and treatment plan as described except to the extent set forth below. <Sabian Gutierrez - Last Filed: 01/07/19 17:04> (1) Altered mental status Qualifiers: Altered mental status type: somnolence Qualified Code(s): R40.0 - Somnolence (3) Urinary tract infection Qualifiers: Urinary tract infection type: acute cystitis Hematuria presence: without h ematuria Qualified Code(s): N30.00 - Acute cystitis without hematuria (4) Ulcer of leg, chronic, left Qualifiers: Non-pressure ulcer stage: with fat layer exposed Qualified Code(s): L97.922 - Non-pressure chronic ulcer of unspecified part of left lower leg with fat layer exposed (6) HTN (hypertension) Qualifiers: Hypertension type: essential hypertension Qualified Code(s): I10 - Essential (primary) hypertension (7) CHF (congestive heart failure) Qualifiers: Heart failure type: unspecified Heart failure chronicity: unspecified Qualified Code(s): I50.9 - Heart failure, unspecified
[2019-01-07] MEDS: Doxycycline 100 MG in 0.9 % Sodium Chloride Mini Bag 100 ML IVPB SCH (17:21)
[2019-01-08] MEDS: Insulin LISPRO 300 UNITS/3 ML VIAL SQ SCH ×5 (00:20→23:41)
[2019-01-08] MEDS ORDERED: ALPRAZolam 0.25 MG TABLET PO ONE (00:43)
[2019-01-08 04:07] LABS: Basophils % 0.3 %; Eosinophils # 0.1 K/mcL (0.0-0.6); Hematocrit 28.3 % (35.3-44.9); Hemoglobin 8.5 g/dL (11.5-15.4); Immature Granulocytes % 0.3 % (0-4); Lymphocytes # 1.6 K/mcL (0.6-4.6); Lymphocytes % 17.8 %; Mean Corpuscular Hemoglobin 29.5 pg (28.0-33.3); Mean Corpuscular Volume 98.3 fL (83.0-100.0); Mean Platelet Volume 10.7 fL (9.4-12.4); Monocytes # 1.1 K/mcL (0.0-1.3); Monocytes % 12.3 %; Neutrophils # 6.1 K/mcL (1.6-8.9); Nucleated Red Blood Cells 0.2 /100 WBC (0); Platelet Count 231 K/mcL (140-400); Red Blood Count 2.88 M/mcL (3.82-4.97); Segmented Neutrophils % 68.3 %
[2019-01-08 04:26] LABS: BUN/Creatinine Ratio 25 (6-26); Blood Urea Nitrogen 26 mg/dL (8-23); Calcium 8.7 mg/dL (8.6-10.3); Carbon Dioxide 22 mEq/L (23-29); Chloride 115 mEq/L (98-107); Glucose 75 mg/dL (70-105); Osmolality,Calculated 311 (280-300); Potassium 4.3 mEq/L (3.5-5.1); Sodium 149 mEq/L (136-145); eGFR For Non-African Americans 53 (> 60)
--- NOTE | 2019-01-08 04:30 | Event Note ---
Date of Encounter: 01/07/19 Time of Encounter: 21:[address] Gayle to place order for soft restraints as this pt. was attempting to pull out PICC line. Soft restraints for bilateral UEs ordered at 21:44. Alerted by pts. nurse Yvette RN at 00:40 to replace soft restraint order d/t new day. Nurse also reported that patient was turned and repositioned and continued to yell at staff. Patient had received 0.25 Xanax at 20:30 and pain medications at 21:55. One-time order for additional 0.25 Xanax PO ordered and administered. Nurse instructed to continue monitoring pts. restraints per protocol and for any adverse changes and notify me immediately.
[2019-01-08] MEDS: *HR* Enoxaparin 30 MG/0.3 ML SYRINGE SQ SCH (05:23)
[2019-01-08] MEDS: Doxycycline 100 MG in 0.9 % Sodium Chloride Mini Bag 100 ML IVPB SCH ×2 (05:23→16:53)
[2019-01-08] MEDS ORDERED: *HR* LORazepam 2 MG/ML VIAL IVP ONE (07:37)
[2019-01-08] MEDS: cefTRIAXone 1,000 MG in Water for inj. (sterile) 20 ML 10 ML IVP SCH (08:17)
[2019-01-08] MEDS: Diltiazem CD (24hr) 180 MG CAPSULE PO SCH (08:17)
[2019-01-08] MEDS: Aspirin Enteric Coated 81 MG Tablet PO SCH (08:17)
[2019-01-08] MEDS: cloNIDine HCl 0.1 MG TABLET PO SCH ×3 (08:17→22:35)
[2019-01-08] MEDS: Lidocaine 4% CREAM (LMX) 5 GM TP SCH (11:31)
[2019-01-08] MEDS: OXYCODONE Oral CONC 10 MG/0.5 ML ORAL.SYG SL PRN (13:08)
--- NOTE | 2019-01-08 15:57 | Internal Med Progress Note ---
<Sabina Gutierrez - Last Filed: 01/08/19 16:11> Hospitalist Progress Note - Encounter Date of Encounter: 01/08/19 Time of Encounter: 15:54 - Subjective Interval History: Patient seen and examined at bedside today. Overnight patient had episode of agitation, she was attempting to pull her IV lines out. Patient was given a on e-time dose of Xanax as well as placed in soft restraints. Per staff, this morning patient was able to nod her head yes to her daughter's question of having any pain and then nodded her head again once the daughter asked if it was back pain. During my assessment of the patient, she was not able to verbalize or nod in response to questions of any pain. I was able to palpate down her spine without pain response. She remains delirious, will intermittently say "oh god." Wound culture of the right knee came back for MRSA, wound culture of the left leg positive for drug-resistant Pseudomonas. Infectious disease will be consult. - Exam Vitals: Temp Pulse Resp BP Pulse Ox 97.8 F 93 18 173/79 96 01/08/19 07:29 01/08/19 07:29 01/08/19 07:29 01/08/19 07:29 01/08/19 07:29 Exam: Gen: Vitals noted. A&Ox0, lying on her back in bed, continued to grasp my hand during exam. HEENT: PERRL/EOMI, oropharynx clear, Normocephalic, atraumatic, mucus membranes dry Cardiac: RRR, no murmur, +S1/S2, radial and dorsal pedis pulses 3+ and symmetrical Pulmonary: Diminished breath sounds bilaterally, no wheezes, rales or rhonchi, equal chest expansion Abdomen: soft, nontender, BS noted, no guarding, no rebound. MSK: ROM intact, no joint swelling noted, no tenderness to palpation or step- offs of spine. Extremities: 1+ pitting edema bilaterally to knees, no calf tenderness, no cyanosis or clubbing. Wounds on lower extremities are dressed and dry. Small abrasions on upper extremities dressed. Neuro: A&Ox0, moves all extremities, no focal deficits Psych: Unable to assess - Assessment and Plan (1) Altered mental status Current Visit: Yes Status: Acute Assessment and Plan: Continues to be delirious. Was able to squeeze my hand on command. Overnight had agitated event, she was attempting to remove IV access, despite nursing staff intervention, patient was placed into soft restraints and given a one-time dose of Xanax. Secondary to metabolic encephalopathy due to urinary tract infection with Klebsiella Possible wound infection versus colonization, patient has right knee ulcer as well as left leg laceration after fall. No drainage or erythema from these wounds. Wound cultures have returned, right knee positive for MRSA, left leg positive for drug resistant pseudomonas aeruginosa. Continue ceftriaxone for urinary tract infection, antibiotics expanded yesterday for MRSA coverage with doxycycline Bolus of half normal saline Infectious disease consult has been placed for recommendations for the drug resistant Pseudomonas (2) Metabolic encephalopathy Current Visit: Yes Status: Acute Assessment and Plan: See management as above (3) Urinary tract infection Current Visit: Yes Status: Acute Assessment and Plan: Urine culture positive for Klebsiella oxytoca Day 4 of 7 of Rocephin (4) Ulcer of leg, chronic, left Current Visit: Yes Status: Acute Assessment and Plan: Ulcer of right knee positive for MRSA Left lower extremity wound positive for drug-resistant Pseudomonas Current antibiotics include ceftriaxone for UTI, doxycycline for MRSA Consults infectious disease pending (5) CKD (chronic kidney disease) stage 3, GFR 30-59 ml/min Current Visit: Yes Status: Chronic Assessment and Plan: Continues to improve Creatinine 1.02, BUN 26 Status post nephrectomy Renally dose medications and avoid nephrotoxins (6) HTN (hypertension) Current Visit: Yes Status: Chronic Assessment and Plan: Elevated today Continue home medications clonidine, carvedilol, losartan Hydralazine as needed for systolic pressure greater than 160 (7) CHF (congestive heart failure) Current Visit: Yes Status: Chronic Assessment and Plan: Not in exacerbation or fluid overloaded Trace edema Continue Lasix (8) PAF (paroxysmal atrial fibrillation) Current Visit: Yes Status: Chronic Assessment and Plan: Rate control with carvedilol, diltiazem Continue to hold eliquis secondary to fall risk Hold until follow-up with PCP in regards to restarting 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 Currently in between palliative chemotherapy treatments Right chest port History of suspected skin cancer Follows with [facility] (10) DVT prophylaxis Current Visit: Yes Status: Acute Assessment and Plan: Prophylactic Lovenox - Time Spent with Patient Total time spent is greater than 50% in coordination of care (as documented) at patient's floor/unit and/or counseling patient: Internal Medicine: Result - Labs CBC & Chem 7: 01/08/19 03:50 01/08/19 03:50 Labs: Short CBC 01/08/19 Range/Units 03:50 WBC 9.0 (4.3-11.1) K/mcL Hgb 8.5 L (11.5-15.4) g/dL Hct 28.3 L (35.3-44.9) % Plt Count 231 (140-400) K/mcL Neutrophils # 6.1 (1.6-8.9) K/mcL [facility] 01/08/19 03:50 Sodium 149 H Potassium 4.3 Chloride 115 H Carbon Dioxide 22 L BUN 26 H Creatinine 1.02 Glucose 75 Calcium 8.7 - ABG Interpretation ABG results: PT/INR, D-dimer PT 14.5 Seconds (9.4-12.1) H 01/04/19 13:53 Consult Discharge Plan - Plan Referrals: Olvin Gaming DPM [Partnered Physician] - <Frank Wynn - Last Filed: 01/08/19 17:59> Hospitalist Progress Note - Encounter Date of Encounter: 01/08/19 - Exam Vitals: Temp Pulse Resp BP Pulse Ox 97.8 F 93 18 173/79 96 01/08/19 07:29 01/08/19 07:29 01/08/19 07:29 01/08/19 07:29 01/08/19 07:29 - Time Spent with Patient Total time spent is greater than 50% in coordination of care (as documented) at patient's floor/unit and/or counseling patient: Internal Medicine: Result - Labs CBC & Chem 7: 01/08/19 03:50 01/08/19 03:50 Labs: Short CBC 01/08/19 Range/Units 03:50 WBC 9.0 (4.3-11.1) K/mcL Hgb 8.5 L (11.5-15.4) g/dL Hct 28.3 L (35.3-44.9) % Plt Count 231 (140-400) K/mcL Neutrophils # 6.1 (1.6-8.9) K/mcL BMP 01/08/19 03:50 Sodium 149 H Potassium 4.3 Chloride 115 H Carbon Dioxide 22 L BUN 26 H Creatinine 1.02 Glucose 75 Calcium 8.7 - ABG Interpretation ABG results: PT/INR, D-dimer PT 14.5 Seconds (9.4-12.1) H 01/04/19 13:53 - Attending Attestation I examined this patient and my medical decision-making was reviewed with the Re sident Physician. I agree with the documented findings, disposition and treatment plan as described except to the extent set forth below. <Sabina Gutierrez - Last Filed: 01/08/19 16:11> (1) Altered mental status Qualifiers: Altered mental status type: somnolence Qualified Code(s): R40.0 - Somnolence (3) Urinary tract infection Qualifiers: Urinary tract infection type: acute cystitis Hematuria presence: without hematuria Qualified Code(s): N30.00 - Acute cystitis without hematuria (4) Ulcer of leg, chronic, left Qualifiers: Non-pressure ulcer stage: with fat layer exposed Qualified Code(s): L97.922 - Non-pressure chronic ulcer of unspecified part of left lower leg with fat layer exposed (6) HTN (hypertension) Qualifiers: Hypertension type: essential hypertension Qualified Code(s): I10 - Essential (primary) hypertension (7) CHF (congestive heart failure) Qualifiers: Heart failure type: unspecified Heart failure chronicity: unspecified Qualified Code(s): I50.9 - Heart failure, unspecified
--- NOTE | 2019-01-08 16:23 | Infectious Disease Consult ---
Infectious Disease-Consult - Encounter Date/Time Date of Encounter: 01/08/19 Time of Encounter: 16:12 - Data of Consult Patient: new to practice Reason for consult: multidrug resistant bacteria Consult date: 01/08/19 Requesting Physician: Frank Wynn MD Primary Care Provider: PCP NONE - HPI HPI: Patient is a 73-year-old woman who presented to [facility] is a transfer from long- term nursing facility for altered mental status on 01/04/2019, we are consulted on 01/08/2019 for multidrug resistant organisms requiring antibiotics. Patient is an unfortunate 73-year-old woman who has an extensive past medical history including colon cancers with metastasis to the kidneys and liver, atrial fibrillation, asthma, skin cancer, heart failure, COPD, coronary artery disease and history of AR in the past, diabetes mellitus type 2, hyperlipidemia, hypertension, venous stasis and anxiety also has multiple infections in the past including UTIs with MRSA, Escherichia coli, Enterococcus faecalis who [facility] and is receiving chemotherapy. Per nursing staff and patient the patient has received 3 cycles and the 4 cycles pending. Keep in mind all the information was taken from nursing staff and the medical record since the patient is nonverbal and does not give me any information. Patient has a sitter in the room. Since admission, patient has been afebrile, tachycardic, without tachypnea. Patient has been hemodynamically stable. Blood pressure is high if anything. Presenting labs revealed WBC of 12.9 with 66% neutrophils. Presenting labs revealed a sodium of 139, potassium 41, BUN 46, creatinine 1.5. Lactic acid within normal limit. Patient also had a slight troponin leak. TSH was 0.127. A urinalysis was obtained and it revealed pyuria and culture was done. Urine culture grew Klebsiella oxytoca R ampicillin, Unasyn. Blood cultures 01/04/2019 2/2 sets no growth to date. Left leg wound positive for pseudomonas aeruginosa green resistant and a gram-positive cocci results pending. Right knee wound grew MRSA S Bactrim, tetracycline. CT chest does not show any acute process but it does show new poorly defined nodules in the apex of the right lung. CT head reveals no acute intracranial abnormality - ROS Review of Systems: Unable to obtain due to mentation - Results CBC & Chem 7: 01/08/19 03:50 01/08/19 03:50 - Exam Vitals: Temp Pulse Resp BP Pulse Ox 97.8 F 93 18 173/79 96 01/08/19 07:29 01/08/19 07:29 01/08/19 07:29 01/08/19 07:29 01/08/19 07:29 Exam: Gen: Vitals noted. A&Ox0, lying on her back in bed, continued to grasp my hand during exam. HEENT: PERRL/EOMI, oropharynx clear, Normocephalic, atraumatic, mucus membranes dry Cardiac: RRR, no murmur, +S1/S2, radial and dorsal pedis pulses 3+ and symmetrical Pulmonary: Diminished breath sounds bilaterally, no wheezes, rales or rhonchi, equal chest expansion Abdomen: soft, nontender, BS noted, no guarding, no rebound. MSK: ROM intact, no joint swelling noted, no tenderness to palpation or step- offs of spine. Extremities: 1+ pitting edema bilaterally to knees, no calf tenderness, no cyanosis or clubbing. Wounds on lower extremities are dressed and dry. Small abrasions on upper extremities dressed. Neuro: A&Ox0, moves all extremities, no focal deficits Psych: Unable to assess Hydralazine HCl 100 mg PO TID 11/29/16 [History] Pravastatin Sodium [Pravachol] 80 mg PO HS 08/08/17 [History] Albuterol Neb [Proventil Neb] 2.5 mg IH Q8H PRN 08/29/18 [History] Albuterol Sulfate [Proair Hfa] 2 puff IH Q6H PRN 08/29/18 [History] Fluticasone Propionate Nasal [Flonase] 1 spray NS DAILY 11/09/18 [History] cloNIDine HCl [Clonidine HCl] 0.3 mg PO TID 11/09/18 [History] Apixaban [Eliquis] 2.5 mg PO BID 11/10/18 [History] Carvedilol [Coreg] 25 mg PO BID 11/10/18 [History] Gabapentin [Neurontin] 100 mg PO BID 11/10/18 [History] Insulin Degludec [Tresiba Flextouch U-200] 45 unit SQ HS 11/10/18 [History] Yucca-3/Dha/Epa/Fish Oil [Cvs Fish Oil 1,000 mg Softgel] 1 cap PO DAILY 11/10/18 [History] Potassium Chloride 20 meq PO DAILY 11/10/18 [History] Furosemide [Lasix] 40 mg PO DAILY 12/08/18 [History] Diltiazem CD (24hr) [Cardizem CD] 180 mg PO DAILY cap.er.24h 12/17/18 [Rx] ALPRAZolam [Xanax 0.5 MG Tablet] 0.5 mg PO BID 01/04/19 [History] Aspirin [Adult Aspirin Regimen] 81 mg PO DAILY 01/04/19 [History] Dulaglutide [Trulicity] 0.75 mg SQ TH 01/04/19 [History] Ferrous Sulfate 325 mg PO DAILY 01/04/19 [History] Insulin LISPRO [HumaLOG] 5 units SQ TIDAC MDD + SLIDING SCALE ACHS 01/04/19 [His tory] Lidocaine [Lc-4] 1 appl TP AD 01/04/19 [History] Losartan Potassium 100 mg PO DAILY 01/04/19 [History] Nitrofurantoin (BID) [Macrobid] 100 mg PO BID 01/04/19 [History] OxyCODONE/APAP 5/325 [Percocet 5/325 MG] 1 tab PO TID PRN 01/04/19 [History] Sucralfate [Carafate] 1 gm PO ACHS 01/04/19 [History] Allergy/AdvReac Type Severity Reaction Status Date / Time Sulfa (Sulfonamide Allergy Severe Swelling Verified 11/30/18 08:51 Antibiotics) of Lip/Tongue/Throat - Assessment and Plan (1) Skin ulcer of left lower leg Current Visit: Yes Status: Acute On left lower extremity No obvious surrounding erythema or drainage No fluctuance Cultures from the wound grew green resistant pseudomonas aeruginosa and a gram- positive cocci (concern for MRSA) I did speak with microbiology lab and asked them to send susceptibility for colistin, Avycaz and zerbaxa for now I will treat with topical wound care, oral doxy and IV colistin duration of treatment 2 weeks while colistin susceptibilities back CrCl around 40; will dose colistin accordingly 120mg q12. will ask pharmacy to help Monitor kidney function closely Prognosis guarded Agree with contact precautions SNOMED Code(s): 840074364, 343956168 (2) Skin ulcer of right knee Current Visit: Yes Status: Acute SNOMED Code(s): 774648001 (3) Multiple malignancies Current Visit: Yes Status: Chronic SNOMED Code(s): 261741262 (4) Altered mental status Current Visit: Yes Status: Acute SNOMED Code(s): 599931822 (5) ROBERT (acute kidney injury) Current Visit: No Status: Resolved SNOMED Code(s): 82066170, 68224718 Past Med Surg Social Fam HX - Past Medical History Medical history: arthritis, asthma, atrial fibrillation, cancer, CHF, COPD, coronary artery disease, diabetes, hyperlipidemia, hypertension, myocardial infarction, venous stasis, other Additional medical history: Sleep apnea, Osteoporosis, Liver lesions, Pneumonia, UTI, type II diabetes Psychiatric history: anxiety, depression - Past Surgical History Surgical History: angioplasty/stent, cholecystectomy, colectomy, coronary bypass (CABG), other Additional surgical history: Left nephrectomy- 2016, Excision of RLE mass 2016, colon resection,2-stents during heart cath - Social History Smoking Status: Never smoker Smokeless Tobacco Status: No Alcohol use: none Drug use: none - Family History Father Family Member Ethnicity: Non- Living Status: Hx Family Cardiac Disorders: Yes ( of AR) Hx Family Respiratory Disorders: No Hx Family Cancer: No Hx Family GI Disorders: No Hx Family Endocrine Disorder: No Hx Family Neuromuscular Disorders: No Hx Family Neurologic Disorders: No Hx Family HEENT Disorders: No Hx Family Autoimmune Disorders: No Brother Family Member Ethnicity: Non- Living Status: Hx Family Cancer: Yes (Throat) Sister Family Member Ethnicity: Non- Living Status: Still Living Hx Family Respiratory Disorders: Yes (Emphysema) Hx Family Cancer: Yes (Breast) Mother Family Member Ethnicity: Non- Living Status: Hx Family Cardiac Disorders: No Hx Family Respiratory Disorders: Yes (asthma) Hx Family Cancer: Yes Hx Family GI Disorders: No Hx Family Endocrine Disorder: No Hx Family Neuromuscular Disorders: No Hx Family Neurologic Disorders: No Hx Family HEENT Disorders: No Hx Family Autoimmune Disorders: No Consult Discharge Plan - Plan Referrals: Olvin Gaming DPM [Partnered Physician] -
[2019-01-08] MEDS ORDERED: COLISTIN IVPB ONE (16:33)
[2019-01-08] MEDS ORDERED: SODIUM CHLORIDE 0.9% IVPB ONE (16:33)
[2019-01-08] MEDS: ALPRAZolam 0.25 MG TABLET PO PRN (16:53)
[2019-01-08] MEDS: *HR* LORazepam 2 MG/ML VIAL IVP PRN (23:12)
[2019-01-09] MEDS: Doxycycline 100 MG in 0.9 % Sodium Chloride Mini Bag 100 ML IVPB SCH ×2 (05:45→16:08)
[2019-01-09] MEDS: ALPRAZolam 0.25 MG TABLET PO PRN ×2 (05:45→16:08)
[2019-01-09] MEDS: *HR* Enoxaparin 30 MG/0.3 ML SYRINGE SQ SCH (05:45)
[2019-01-09] MEDS: Insulin LISPRO 300 UNITS/3 ML VIAL SQ SCH ×3 (05:45→18:26)
[2019-01-09 06:25] LABS: Basophils % 0.4 %; Eosinophils # 0.1 K/mcL (0.0-0.6); Hematocrit 30.7 % (35.3-44.9); Immature Granulocytes % 0.3 % (0-4); Lymphocytes # 1.6 K/mcL (0.6-4.6); Lymphocytes % 15.4 %; Mean Corpuscular HGB Conc 29.3 g/dL (31.6-35.5); Mean Corpuscular Hemoglobin 29.2 pg (28.0-33.3); Mean Corpuscular Volume 99.7 fL (83.0-100.0); Mean Platelet Volume 10.8 fL (9.4-12.4); Monocytes # 1.5 K/mcL (0.0-1.3); Monocytes % 13.8 %; Neutrophils # 7.4 K/mcL (1.6-8.9); Nucleated Red Blood Cells 0.2 /100 WBC (0); Platelet Count 240 K/mcL (140-400); Red Blood Count 3.08 M/mcL (3.82-4.97); Red Cell Distribution Width 16.4 % (11.5-14.5); Segmented Neutrophils % 69.1 %
[2019-01-09 06:50] LABS: Calcium 9.1 mg/dL (8.6-10.3); Potassium 4.7 mEq/L (3.5-5.1)
[2019-01-09] MEDS: *HR* LORazepam 2 MG/ML VIAL IVP PRN (09:31)
[2019-01-09] MEDS: OXYCODONE Oral CONC 10 MG/0.5 ML ORAL.SYG SL PRN ×2 (09:32→22:52)
[2019-01-09] MEDS: Aspirin Enteric Coated 81 MG Tablet PO SCH (09:34)
[2019-01-09] MEDS: cloNIDine HCl 0.1 MG TABLET PO SCH ×3 (09:34→22:08)
[2019-01-09] MEDS: Diltiazem CD (24hr) 180 MG CAPSULE PO SCH (09:34)
--- NOTE | 2019-01-09 09:43 | Internal Med Progress Note ---
<Karin Mejia - Last Filed: 01/09/19 16:20> Hospitalist Progress Note - Encounter Date of Encounter: 01/09/19 - Exam Vitals: Temp Pulse Resp BP Pulse Ox 98.2 F 125 20 146/102 93 01/09/19 12:07 01/09/19 12:07 01/09/19 12:07 01/09/19 12:07 01/09/19 12:07 - Time Spent with Patient Total time spent is greater than 50% in coordination of care (as documented) at patient's floor/unit and/or counseling patient: Internal Medicine: Result - Labs CBC & Chem 7: 01/09/19 05:58 01/09/19 05:58 Labs: Short CBC 01/09/19 Range/Units 05:58 WBC 10.7 (4.3-11.1) K/mcL Hgb 9.0 L (11.5-15.4) g/dL Hct 30.7 L (35.3-44.9) % Plt Count 240 (140-400) K/mcL Neutrophils # 7.4 (1.6-8.9) K/mcL BMP 01/09/19 05:58 Sodium 150 H Potassium 4.7 Chloride 115 H Carbon Dioxide 22 L BUN 29 H Creatinine 1.19 Glucose 141 H Calcium 9.1 - ABG Interpretation ABG results: PT/INR, D-dimer PT 14.5 Seconds (9.4-12.1) H 01/04/19 13:53 Consult Discharge Plan - Plan Referrals: Olvin Gaming DPM [Partnered Physician] - - Attending Attestation I examined this patient and my medical decision-making was reviewed with the Resident Physician Dr Johns. I agree with the documented findings, disposition and treatment plan as described except to the extent set forth below. Ms Hitchcock is admitted with lethargy in the setting of stage IV colon cancer, UTI, leg infection sitter at bedside, no family present, she is lethargic, when asked questions only mouths words, does not open her eyes, does squeeze my hand then won't let go and continues to try to squeeze my arm while I examined her. Taking small bites of food being fed by sitter. no hpi or ros can be obtained given pt mentation gen- lethargic, appears stated age eyes- pupils equal round , no scleral icterus cv- reg rate and irreg/irreg rhythm, normal s1,s2, no murmurs appreciated, no pitting le edema lungs- ctabl, no wheezing, rhonchi or crackles, normal resp effort abd- soft, no apparent tenderness, no guard or grimace, non distended neuro- lethargic with eyes closed but sitting upright in bed and taking bites of food, CN grossly intact on this exam limited by her cooperation,she moves all ext spontaneously without focal deficit noted, director of housing strength is 5/5 bl ue Encephalopathy most likely infectious + metabolic with hypernatremia, waxing and waning mental status Most recent MRI rain last month was without brain mets -treatments as below -cont sitter -discussed with daughter potential causes including infection, metabolic disturbance, and her stage IV cancer, verbalized good understanding of scenario -given her liver mets will recheck cmp, ammonia in am to assess for changes Klebsiella UTI BL leg wounds, R knee ulcer + MRSA -appreciate ID recs, cont colistin + doxy and following cxs Afib, currently tachycardic intermittently October 2018 echo reviewed -will check ekg to confirm rhythm, can uptitrate CCB as needed for improved control, monitor lytes, tele, prn BB, avoid meds that cause tachycardia -giving ivfs today, has poor oral intake, repeat mag level in am -I discussed with her daughter Brit that AC is being held this admission due to fall risk and she was aware and agrees, will cont lovenox for vte ppx at this time Hypernatremia- worsening, suspect related to lack of oral intake -was ordered 1L 1/2 NS yesterday bt only got 500 cc -1L ordered today, repeat Na level pending, if does not improve will have to consider nephro consult for further recs for treatment, would like this to improve to rule out contributing to mentation HTN- prn iv antihypertensive + oral meds, cont to monitor further diagnoses and plan as noted by resident <Bc Johns - Last Filed: 01/09/19 19:40> Hospitalist Progress Note - Encounter Date of Encounter: 01/09/19 Time of Encounter: 10:10 - Subjective Interval History: Patient seen and examined at bedside; she is nonverbal, and does not answer any questions. Does not maintain eye contact. Currently treating for a lower extremity wound with colistin for green resistant Pseudomonas. Sensitivities for Avycaz, Zerbaxa pending. Patient does not appear to be in any acute distress at this time. Of note, patients sodium level has continued to rise. Sodium today is 150. We will administer a 1 L bolus of half normal. If this is ineffective, will consult nephrology. - Exam Vitals: Temp Pulse Resp BP Pulse Ox 97.5 F L 66 17 151/77 89 01/09/19 04:26 01/09/19 04:26 01/09/19 04:26 01/09/19 04:01/09/19 04:26 Exam: General: Nonconversant, does not maintain eye contact, unable to answer any questions Head: atraumatic, normocephalic; mucous membranes dry Eye: PERRL, EOMI, conjuntiva pink, sclera anicteric Neck: Supple, trachea midline; No lymphadenopathy Respiratory: Diminished breath sounds bilaterally; No accessory muscle use, wheezes, rales, or rhonchi Cardiovascular: RRR, +S1, +S2; no murmurs, rubs, gallops Abdomen: Soft, nontender Extremities: +1 pitting edema in the lower extremities bilaterally; lower extremity wounds are currently dressed Psychiatric: Patient is nonverbal; unable to assess Skin: Dry, intact - Assessment and Plan (1) Skin ulcer of left lower leg Current Visit: Yes Status: Acute Assessment and Plan: - Wound located on left lower extremity, no erythema, drainage, fluctuance - Culture: green resistant pseudomonas and GPC (concern for MRSA) Plan: - Infectious diseases following - Sensitivities being sent for colistin, Avycaz, Zerbaxa - Continue colistin; renally dosed; doxycycline; duration of treatment 2 weeks - Continue contact precautions (2) UTI (urinary tract infection) Current Visit: Yes Status: Acute Assessment and Plan: - Urine culture positive for Klebsiella oxytoca - Day 5 of 7 of Rocephin (3) Altered mental status Current Visit: Yes Status: Acute Assessment and Plan: - Unknown etiology - Possibly secondary to infection - Plan as above (4) Hypernatremia Current Visit: Yes Status: Acute Assessment and Plan: - Elevated sodium at 150; worsening - Possibly related to poor by mouth intake - Half-normal saline was ordered yesterday; 500 mL; only minimal improvement - Repeat bolus was ordered today of 1 L - Repeat sodium is pending - If patients hypernatremia does not improve, will consult nephrology (5) CKD (chronic kidney disease) stage 3, GFR 30-59 ml/min Current Visit: Yes Status: Chronic Assessment and Plan: - Continues to improve - Status post nephrectomy - Renally dose medications and avoid nephrotoxins (6) Hypertension Current Visit: No Status: Chronic Assessment and Plan: - Hydralazine as needed for systolic pressure greater than 160 (7) CHF (congestive heart failure) Current Visit: No Status: Chronic Assessment and Plan: - Continue Lasix - Hold until follow-up with PCP in regards to restarting (8) Multiple malignancies Current Visit: Yes Status: Chronic Assessment and Plan: - 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 - Currently in between palliative chemotherapy treatments (9) DVT prophylaxis Current Visit: No Status: Acute Assessment and Plan: - Prophylactic Lovenox - Time Spent with Patient Total time spent is greater than 50% in coordination of care (as documented) at patient's floor/unit and/or counseling patient: Internal Medicine: Result - Labs CBC & Chem 7: 01/09/19 05:58 01/09/19 19:09 Labs: Short CBC 01/09/19 Range/Units 05:58 WBC 10.7 (4.3-11.1) K/mcL Hgb 9.0 L (11.5-15.4) g/dL Hct 30.7 L (35.3-44.9) % Plt Count 240 (140-400) K/mcL Neutrophils # 7.4 (1.6-8.9) K/mcL BMP 01/09/19 05:58 Sodium 150 H Potassium 4.7 Chloride 115 H Carbon Dioxide 22 L BUN 29 H Creatinine 1.19 Glucose 141 H Calcium 9.1 - ABG Interpretation ABG results: PT/INR, D-dimer PT 14.5 Seconds (9.4-12.1) H 01/04/19 13:53 <Bc Johns - Last Filed: 01/09/19 19:40> (2) UTI (urinary tract infection) Qualifiers: (3) Altered mental status Qualifiers: Altered mental status type: unspecified Qualified Code(s): R41.82 - Altered mental status, unspecified (6) Hypertension Qualifiers: Hypertension type: essential hypertension
[2019-01-09] MEDS: Lidocaine 4% CREAM (LMX) 5 GM TP SCH (11:35)
--- NOTE | 2019-01-09 11:35 | Infectious Disease Progress No ---
ID Progress Note Date of Encounter: 01/09/19 Time of Encounter: 11:00 - Subjective Subjective: Patient seen and examined with nursing staff at the bedside. No acute events noted overnight. Review of systems unobtainable from the patient. Per nursing, the patient seems more agitated today. She did not eat any breakfast, but did take her pills and a little bit of pudding this morning. No diarrhea. She is incontinent of urine. - Objective CBC & Chem 7: 01/09/19 05:58 01/09/19 05:58 - Exam Vitals: Temp Pulse Resp BP Pulse Ox 97.5 F L 66 17 151/77 89 01/09/19 04:26 01/09/19 04:26 01/09/19 04:26 01/09/19 04:26 01/09/19 04:26 Exam: Head: Atraumatic, normal inspection, normocephalic. Eye: PERRLA, no scleral icterus noted. ENT: Mucous membranes moist. No odontogenic infection noted. Complete oral exam unobtainable due to patient noncompliance. Neck: Normal inspection, no meningismus. Respiratory: Clear to auscultation. No rales, respiratory distress, rhonchi, or wheezes noted. Cardiovascular: Regular rate and rhythm, S1 and S2 audible. No murmurs, rubs, or gallops. GI: Soft, nondistended, normal bowel sounds. Extremities:No joint swelling, pedal edema, or tenderness noted. Ecchymosis noted to the bilateral lower extremities in various stages of healing. Bilateral lower extremity dressings are clean, dry, and intact. Back: Normal inspection. No vertebral tenderness noted. Neurological: Alert, answers yes when her name is called, but did not follow commands or attempt to communicate otherwise. Skin: Dry, intact, warm. Normal color. No rashes. - Assessment and Plan (1) Skin ulcer of right knee Current Visit: Yes Status: Acute Location: Right knee. Wound culture positive for MRSA. Currently on oral doxycycline. Qualifiers: Non-pressure ulcer stage: limited to breakdown of skin Qualified Code(s): L97.811 - Non-pressure chronic ulcer of other part of right lower leg limited to breakdown of skin SNOMED Code(s): 686059071 (2) Skin ulcer of left lower leg Current Visit: Yes Status: Acute Location: Left lower leg. No obvious indication of infection or fluctuance. Wound culture positive for green resistant Pseudomonas and gram-positive cocci, final ID and sensitivities are pending. Discussed with the micro-lab and requested Pseudomonas sensitivities for colistin, Avycaz, and Zerbaxa. Currently on IV colistin. SNOMED Code(s): 127202127, 374667212 (3) ROBERT (acute kidney injury) Current Visit: No Status: Resolved SNOMED Code(s): 61445360, 00342042 (4) Altered mental status Current Visit: Yes Status: Acute Etiology: Unclear. It is unclear what the patient's baseline mental status is. CT of the head 01/04/19 negative for acute intracranial abnormality. Discussed with nursing staff and advised them to discuss with family what the patient's baseline mental status is. Qualifiers: Altered mental status type: unspecified Qualified Code(s): R41.82 - Altered mental status, unspecified SNOMED Code(s): 443580473 (5) CKD (chronic kidney disease) stage 2, GFR 60-89 ml/min Current Visit: No Status: Chronic SNOMED Code(s): 209302625 (6) Multiple malignancies Current Visit: Yes Status: Chronic Metastatic colon cancer with metastases to the liver. Status post cycle 3 of palliative chemotherapy 12/14/18. Scheduled for next chemo 01/11/19. Follows with [facility]. SNOMED Code(s): 839876894 (7) KATINA (obstructive sleep apnea) Current Visit: No Status: Chronic SNOMED Code(s): 77508076 - Recommendations Recommendations: Await final identification and sensitivities from the left knee cultures. Await additional Pseudomonas susceptibilities. Continue colistin 120 mg IV every 12 hours. Continue doxycycline 100 mg by mouth twice a day. Duration of treatment depends on the clinical picture. Monitor renal function and dose adjust antibiotics. Contact precautions per hospital policy. Consult Discharge Plan - Plan Referrals: Olvin Gaming DPM [Partnered Physician] -
[2019-01-09] MEDS: Colistin (Colistimethate) 150 MG in 0.9 % Sodium Chloride 50 ML IVPB SCH (18:59)
[2019-01-09 21:15] LABS: Calcium 8.6 mg/dL (8.6-10.3); Potassium 4.4 mEq/L (3.5-5.1)
[2019-01-10] MEDS: Insulin LISPRO 300 UNITS/3 ML VIAL SQ SCH ×4 (00:25→18:38)
[2019-01-10] MEDS: ALPRAZolam 0.25 MG TABLET PO PRN (04:24)
[2019-01-10] MEDS: OXYCODONE Oral CONC 10 MG/0.5 ML ORAL.SYG SL PRN (04:25)
[2019-01-10 05:54] LABS: Basophils # 0.1 K/mcL (0.0-0.2); Basophils % 0.6 %; Eosinophils # 0.2 K/mcL (0.0-0.6); Eosinophils % 1.8 %; Hematocrit 31.6 % (35.3-44.9); Hemoglobin 9.3 g/dL (11.5-15.4); Immature Granulocytes % 0.6 % (0-4); Lymphocytes # 1.6 K/mcL (0.6-4.6); Mean Corpuscular HGB Conc 29.4 g/dL (31.6-35.5); Mean Corpuscular Hemoglobin 29.4 pg (28.0-33.3); Mean Platelet Volume 10.8 fL (9.4-12.4); Monocytes # 1.4 K/mcL (0.0-1.3); Monocytes % 15.1 %; Neutrophils # 5.8 K/mcL (1.6-8.9); Nucleated Red Blood Cells 0.2 /100 WBC (0); Platelet Count 200 K/mcL (140-400); Red Blood Count 3.16 M/mcL (3.82-4.97); Red Cell Distribution Width 16.6 % (11.5-14.5); Segmented Neutrophils % 63.9 %
[2019-01-10] MEDS: *HR* Enoxaparin 30 MG/0.3 ML SYRINGE SQ SCH (06:01)
[2019-01-10] MEDS: Doxycycline 100 MG in 0.9 % Sodium Chloride Mini Bag 100 ML IVPB SCH ×2 (06:01→17:29)
[2019-01-10 06:06] LABS: Albumin 2.8 g/dL (3.5-5.7); Albumin/Globulin Ratio 0.8 (1.1-2.2); Bilirubin,Total 0.4 mg/dL (0.3-1.0); Globulin 3.7 g/dL (2.4-3.5); Magnesium 1.7 mg/dL (1.6-2.6); Potassium 4.7 mEq/L (3.5-5.1); Total Protein 6.5 g/dL (6.4-8.9)
[2019-01-10] MEDS: cloNIDine HCl 0.1 MG TABLET PO SCH ×3 (08:38→20:15)
[2019-01-10] MEDS: Aspirin Enteric Coated 81 MG Tablet PO SCH (08:38)
--- NOTE | 2019-01-10 09:03 | Electrocardiograph Report ---
[place] [address] Test Date: 2019-01-09 Pat Name: Katie Hitchcock Department: 113 Room: 3B12 Gender: F [employer]: : 1945 Requested By: Silvestre Hernandez Order Number: [id number] Reading MD: Love Cee Measurements Intervals [place] Rate: 124 P: CO: 0 QRS: 37 QRSD: 112 T: 120 QT: 314 QTc: 388 Interpretive Statements ATRIAL FIBRILLATION WITH RAPID VENTRICULAR RESPONSE INCOMPLETE RIGHT BUNDLE BRANCH BLOCK [90+ ms QRS DURATION, TERMINAL R IN V1/V2, 40+ ms S IN I/aVL/V4/V5/V6] POSSIBLE ANTERIOR MYOCARDIAL INFARCTION [30 ms Q WAVE IN V3/V4, OR R < 0.2 mV IN V4], PROBABLY OLD ABNORMAL RHYTHM ECG Electronically Signed On 01-10-2019 9:01:58 EDT by Love Cee
--- NOTE | 2019-01-10 10:46 | Infectious Disease Progress No ---
ID Progress Note Date of Encounter: 01/10/19 Time of Encounter: 10:20 - Subjective Subjective: Patient seen and examined with nursing staff at the bedside. No acute events noted overnight. Review of systems unobtainable from the patient. Per nursing, the patient was very agitated this morning, but is now sleeping. She did eat a little bit of breakfast today. No diarrhea. She is incontinent of urine. - Objective CBC & Chem 7: 01/11/19 04:40 01/11/19 10:02 - Exam Vitals: Temp Pulse Resp BP Pulse Ox 97.4 F L 72 17 166/72 93 01/09/19 18:53 01/09/19 19:40 01/09/19 18:53 01/09/19 23:22 01/09/19 18:53 Exam: Head: Atraumatic, normal inspection, normocephalic. Eye: PERRLA, no scleral icterus noted. ENT: Mucous membranes moist. No odontogenic infection noted. Complete oral exam unobtainable due to patient noncompliance. Neck: Normal inspection, no meningismus. Respiratory: Clear to auscultation. No rales, respiratory distress, rhonchi, or wheezes noted. Cardiovascular: Regular rate and rhythm, S1 and S2 audible. No murmurs, rubs, or gallops. GI: Soft, nondistended, normal bowel sounds. Extremities: No joint swelling, pedal edema, or tenderness noted. Ecchymosis noted to the bilateral lower extremities in various stages of healing. Bilateral lower extremity dressings are clean, dry, and intact. Back: Normal inspection. No vertebral tenderness noted. Neurological: Sleeping. Skin: Dry, intact, warm. Normal color. No rashes. - Assessment and Plan (1) Skin ulcer of right knee Current Visit: Yes Status: Acute Location: Right knee. Wound culture positive for MRSA. Currently on oral doxycycline. Qualifiers: Non-pressure ulcer stage: limited to breakdown of skin Qualified Code(s): L97.811 - Non-pressure chronic ulcer of other part of right lower leg limited to breakdown of skin SNOMED Code(s): 996451910 (2) Skin ulcer of left lower leg Current Visit: Yes Status: Acute Location: Left lower leg. No obvious indication of infection or fluctuance. Wound culture positive for green resistant Pseudomonas and MRSA. Discussed with the micro-lab and requested Pseudomonas sensitivities for colistin, Avycaz, and Zerbaxa. --> pending. Currently on IV colistin and doxycycline. Qualifiers: Non-pressure ulcer stage: limited to breakdown of skin Qualified Code(s): L97.921 - Non-pressure chronic ulcer of unspecified part of left lower leg limited to breakdown of skin SNOMED Code(s): 005624242, 024827650 (3) ROBRET (acute kidney injury) Current Visit: No Status: Resolved SNOMED Code(s): 44341333, 87992474 (4) Altered mental status Current Visit: Yes Status: Acute Etiology: Unclear. It is unclear what the patient's baseline mental status is. CT of the head 01/04/19 negative for acute intracranial abnormality. Discussed with nursing staff and advised them to discuss with family what the patient's baseline mental status is. Qualifiers: Altered mental status type: unspecified Qualified Code(s): R41.82 - Altered mental status, unspecified SNOMED Code(s): 458637617 (5) CKD (chronic kidney disease) stage 2, GFR 60-89 ml/min Current Visit: No Status: Chronic SNOMED Code(s): 788673147 (6) Multiple malignancies Current Visit: Yes Status: Chronic Metastatic colon cancer with metastases to the liver. Status post cycle 3 of palliative chemotherapy 12/14/18. Scheduled for next chemo 01/11/19. Follows with [facility]. SNOMED Code(s): 771190732 (7) KATINA (obstructive sleep apnea) Current Visit: No Status: Chronic SNOMED Code(s): 92150366 - Recommendations Recommendations: Await final identification and sensitivities from the left knee cultures. Await additional Pseudomonas susceptibilities. Continue colistin 120 mg IV every 12 hours. Continue doxycycline 100 mg by mouth twice a day. Duration of treatment depends on the clinical picture. Monitor renal function and dose adjust antibiotics. Contact precautions per hospital policy. Consult Discharge Plan - Plan Referrals: Olvin Gaming DPM [Partnered Physician] - - Attending Attestation I have personally performed a face to face evaluation on this patient. I have reviewed and agree with the care plan. History and Exam by me shows: Assessment and plan: Skin ulcer of the right knee Skin ulcer on the left leg Acute kidney injury Altered mental status Recommendations: Await final identification and sensitivities from the left knee cultures. Await additional Pseudomonas susceptibilities. Continue colistin 120 mg IV every 12 hours. Continue doxycycline 100 mg by mouth twice a day. Duration of treatment depends on the clinical picture. Monitor renal function and dose adjust antibiotics. Contact precautions per hospital policy.
--- NOTE | 2019-01-10 14:14 | Internal Med Progress Note ---
<Karin Mejia - Last Filed: 01/10/19 17:23> Hospitalist Progress Note - Encounter Date of Encounter: 01/10/19 - Exam Vitals: Temp Pulse Resp BP Pulse Ox 96.4 F L 113 16 145/90 96 01/10/19 16:45 01/10/19 16:45 01/10/19 16:45 01/10/19 16:45 01/10/19 16:45 - Time Spent with Patient Total time spent is greater than 50% in coordination of care (as documented) at patient's floor/unit and/or counseling patient: Internal Medicine: Result - Labs CBC & Chem 7: 01/10/19 05:32 01/10/19 05:32 Labs: Short CBC 01/10/19 Range/Units 05:32 WBC 9.0 (4.3-11.1) K/mcL Hgb 9.3 L (11.5-15.4) g/dL Hct 31.6 L (35.3-44.9) % Plt Count 200 (140-400) K/mcL Neutrophils # 5.8 (1.6-8.9) K/mcL BMP 01/09/19 01/09/19 01/10/19 19:09 20:38 05:32 Sodium 150 H 149 H 151 H Potassium 4.4 4.7 Chloride 117 H 117 H Carbon Dioxide 22 L 22 L BUN 28 H 27 H Creatinine 1.38 H 1.32 H Glucose 159 H 117 H Calcium 8.6 9.0 Liver Function 01/10/19 Range/Units 05:32 Total Bilirubin 0.4 (0.3-1.0) mg/dL AST 18 (13-39) Units/L ALT 12 (7-52) Units/L Alkaline Phosphatase 142 H (34-104) Units/L Albumin 2.8 L (3.5-5.7) g/dL - ABG Interpretation ABG results: PT/INR, D-dimer PT 14.5 Seconds (9.4-12.1) H 01/04/19 13:53 Consult Discharge Plan - Plan Referrals: Olvin Gaming, DPM [Partnered Physician] - - Attending Attestation I examined this patient and my medical decision-making was reviewed with the Resident Physician Dr Leon. I agree with the documented findings, disposition and treatment plan as described except to the extent set forth below. Ms Hitchcock is admitted with lethargy in the setting of stage IV colon cancer, UTI, leg infection sitter at bedside, no family present, she is lethargic, follows no commands. it appears she did not require cardizem gtt overnight gen- lethargic, appears stated age eyes- pupils equal round cv- reg rate and irreg/irreg rhythm, normal s1,s2, no pitting le edema lungs- ctabl, no wheezing, rhonchi or crackles, normal resp effort abd- soft, no apparent tenderness, no guard or grimace, non distended neuro- lethargic with eyes open but sitting upright in bed, CN grossly intact on this exam limited by her cooperation Encephalopathy most likely infectious + metabolic with hypernatremia, waxing and waning mental status Most recent MRI rain last month was without brain mets -treatments as below -cont sitter -discussed with daughter potential causes including infection, metabolic disturbance, and her stage IV cancer, verbalized good understanding of scenario -cmp and ammonia no significant findings Klebsiella UTI BL leg wounds, R knee ulcer + MRSA -appreciate ID recs, cont colistin + doxy and following cxs Afib, currently tachycardic intermittently October 2018 echo reviewed -[facility], cardizem gtt if needed, monitor lytes, tele, prn BB -I discussed with her daughter Brit 01/09 that AC is being held this admission due to fall risk and she was aware and agrees, will cont lovenox for vte ppx at this time Hypernatremia- worsening, suspect related to lack of oral intake -nephro consulted, neuro checks, d5W as per nephro and serial sodium checks HTN- prn iv antihypertensive + oral meds, cont to monitor further diagnoses and plan as noted by resident <Sabina Leon - Last Filed: 01/10/19 18:14> Hospitalist Progress Note - Encounter Date of Encounter: 01/10/19 Time of Encounter: 10:15 - Subjective Interval History: Patient seen and examined at bedside today. She had some elevated heart rate last evening and and Cardizem drip was ordered however overnight her heart rate was in the 80s and this was not started. She had several episodes of agitation last night as well. She remains altered, mildly able to follow commands by squeezing my hand. Family is not present at bedside today. Per nursing staff, a sister stopped by, poked her head into the room saw that she was sleeping and left. Review of systems unobtainable due to mental status - Exam Vitals: Temp Pulse Resp BP Pulse Ox 96.8 F L 73 16 141/78 83 01/10/19 11:47 01/10/19 11:47 01/10/19 11:47 01/10/19 11:47 01/10/19 11:47 Exam: Gen: Vitals noted. A&Ox0, lying on her side in bed, opens eyes intermittently during exam. HEENT: PERRL/EOMI, oropharynx clear, Normocephalic, atraumatic, mucus membranes dry Cardiac: RRR, no murmur, +S1/S2, radial and dorsal pedis pulses 3+ and symmetrical Pulmonary: Diminished breath sounds bilaterally, no wheezes, rales or rhonchi, equal chest expansion Abdomen: soft, nontender, BS noted, no guarding, no rebound. MSK: ROM intact, no joint swelling noted. Extremities: 1+ pitting edema bilaterally to knees, no calf tenderness, no cyanosis or clubbing. Wounds on lower extremities are dressed and dry. Small abrasions on upper extremities dressed. Neuro: A&Ox0, moves all extremities, no focal deficits Psych: Unable to assess - Assessment and Plan (1) Altered mental status Current Visit: Yes Status: Acute Assessment and Plan: Continues to have altered mental status, delirium agitation, Suspect secondary to infection Urinary tract infection with Klebsiella as well as pain in resistant Pseudomonas and suspected MRSA of lower extremity wounds. Also metabolic encephalopathy, hypernatremia. Continue doxycycline, colistin Continue to give benzodiazepine as needed for agitation Hypernatremia continues Nephrology consulted-recommend D5 fluid resuscitation Family not available at bedside today Will need goals of care discussion Will most likely need consult palliative care tomorrow Continue sitter. (2) Metabolic encephalopathy Current Visit: Yes Status: Acute Assessment and Plan: C management as above (3) Hypernatremia Current Visit: Yes Status: Acute Assessment and Plan: Continues to have hypernatremia Sodium currently 151 [place] deficit of 2.1 L Secondary to decreased by mouth intake Nephrology has been consulted-recommend D5 with 50 mEq sodium bicarbonate, will check urine sodium and urine osmolality (4) Urinary tract infection Current Visit: Yes Status: Acute Assessment and Plan: Urine culture positive for Klebsiella oxytoca Continue doxycycline, colistin for broad antibiotic coverage Continue fluid resuscitation (5) Ulcer of leg, chronic, left Current Visit: Yes Status: Acute Assessment and Plan: Ulcer on left lower extremity Panresistant Pseudomonas and MRSA Current antibiotic coverage includes doxycycline, colistin Infectious disease following Sensitivities for green resistant Pseudomonas sent-colistin, ayvcaz, zerbaxa Continue colistin Contact precautions (6) CKD (chronic kidney disease) stage 3, GFR 30-59 ml/min Current Visit: Yes Status: Chronic Assessment and Plan: Slightly worsened overnight Suspect secondary to free water deficit, decreased by mouth intake, medications Status post nephrectomy Continue renally dose medications avoid nephrotoxins Nephrology consulted- urine osmolality, urine sodium pending. Recommend D5 with 50 mEq sodium bicarbonate (7) HTN (hypertension) Current Visit: Yes Status: Chronic Assessment and Plan: Continue clonidine, carvedilol, losartan (8) CHF (congestive heart failure) Current Visit: Yes Status: Chronic Assessment and Plan: Not in exacerbation Ejection fraction 55%, indeterminate diastolic function Currently dry, fluid resuscitation with D5 and sodium bicarbonate (9) PAF (paroxysmal atrial fibrillation) Current Visit: Yes Status: Chronic Assessment and Plan: Rate control with carvedilol, diltiazem May need to increase dose of diltiazem- diltiazem drip was ordered last night however heart rate improved and was not given. 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 She states that her oncologist will be updated about her hospital course. Patient was scheduled to have chemotherapy tomorrow, however this has been canceled while she remains in the hospital. (11) DVT prophylaxis Current Visit: Yes Status: Acute Assessment and Plan: Prophylactic Lovenox - Time Spent with Patient Total time spent is greater than 50% in coordination of care (as documented) at patient's floor/unit and/or counseling patient: Internal Medicine: Result - Labs CBC & Chem 7: 01/10/19 05:32 01/10/19 05:32 Labs: Short CBC 01/10/19 Range/Units 05:32 WBC 9.0 (4.3-11.1) K/mcL Hgb 9.3 L (11.5-15.4) g/dL Hct 31.6 L (35.3-44.9) % Plt Count 200 (140-400) K/mcL Neutrophils # 5.8 (1.6-8.9) K/mcL BMP 01/09/19 01/09/19 01/10/19 19:09 20:38 05:32 Sodium 150 H 149 H 151 H Potassium 4.4 4.7 Chloride 117 H 117 H Carbon Dioxide 22 L 22 L BUN 28 H 27 H Creatinine 1.38 H 1.32 H Glucose 159 H 117 H Calcium 8.6 9.0 Liver Function 01/10/19 Range/Units 05:32 Total Bilirubin 0.4 (0.3-1.0) mg/dL AST 18 (13-39) Units/L ALT 12 (7-52) Units/L Alkaline Phosphatase 142 H (34-104) Units/L Albumin 2.8 L (3.5-5.7) g/dL - ABG Interpretation ABG results: PT/INR, D-dimer PT 14.5 Seconds (9.4-12.1) H 01/04/19 13:53 <Sabina Leon - Last Filed: 01/10/19 18:14> (1) Altered mental status Qualifiers: Altered mental status type: somnolence Qualified Code(s): R40.0 - Somnolence (4) Urinary tract infection Qualifiers: Urinary tract infection type: acute cystitis Hematuria presence: without hematuria Qualified Code(s): N30.00 - Acute cystitis without hematuria (5) Ulcer of leg, chronic, left Qualifiers: Non-pressure ulcer stage: with fat layer exposed Qualified Code(s): L97.922 - Non-pressure chronic ulcer of unspecified part of left lower leg with fat layer exposed (7) HTN (hypertension) Qualifiers: Hypertension type: essential hypertension Qualified Code(s): I10 - Essential (primary) hypertension (8) CHF (congestive heart failure) Qualifiers: Heart failure type: unspecified Heart failure chronicity: unspecified Qualified Code(s): I50.9 - Heart failure, unspecified
[2019-01-10] MEDS: Colistin (Colistimethate) 150 MG in 0.9 % Sodium Chloride 50 ML IVPB SCH (16:13)
[2019-01-10] MEDS: Lidocaine 4% CREAM (LMX) 5 GM TP SCH (16:14)
[2019-01-10] MEDS ORDERED: Sodium Bicarbonate 50 MEQ in D5% in Water 1,000 ML IVC SCH (16:30)
--- NOTE | 2019-01-10 16:40 | Nephrology Consult Note ---
Date of Encounter: 01/10/19 Time of Encounter: 15:00 Assessment and Plan (1) Hypernatremia Current Visit: Yes Status: Acute Setting of hypovolemia. No No focal weakness on exam. No seizure like symptoms. Poor UOP. Etiology includes ROBERT on CKD vs post-obstruction. Free water deficit 2.1 L. - Urine osmolality. - Urine sodium. - Will start to D5 100 ml/hr with 50 meq NaHCO3. (2) Acute kidney injury superimposed on chronic kidney disease Current Visit: No Status: Resolved Stage III CKD. s/p L nephrectomy. Setting of sepsis. - Renal u/s. - Avoid nephrotoxins. - IVF. - Renal dose medications. (3) Metabolic acidosis Current Visit: Yes Status: Acute Non-gap (AG 12). - D5 with 50 meq NaHCO3 100 mls/hr. (4) Altered mental status Current Visit: Yes Status: Acute Qualifiers: Altered mental status type: unspecified Qualified Code(s): R41.82 - Altered mental status, unspecified (5) CHF (congestive heart failure) Current Visit: Yes Status: Chronic 10/2018 Echocardiogram: EF 55-60%. Intermediate diastolic dysfunction. Qualifiers: Heart failure type: unspecified Heart failure chronicity: unspecified Qualified Code(s): I50.9 - Heart failure, unspecified (6) HTN (hypertension) Current Visit: Yes Status: Chronic Qualifiers: Hypertension type: essential hypertension Qualified Code(s): I10 - Essentia l (primary) hypertension (7) UTI (urinary tract infection) Current Visit: Yes Status: Acute Qualifiers: Urinary tract infection type: site unspecified Qualified Code(s): N39.0 - Urinary tract infection, site not specified History of Present Illness - Reason for Consult hypernatremia - Chief Complaint AMS - History of Present Illness Patient is a 73 YO F that presents for AMS as well as UTI. PMH of atrial fibrillation, colon cancer with metastasis to kidney, liver who is in between chemotherapy treatments, skin cancer, preserved ejection fraction heart failure, COPD, coronary artery disease status post 2 stents in 2003 and CABG in 2013, prior NC, diabetes mellitus, hyperlipidemia, hypertension. 3 weeks ago when she was admitted for pneumonia, once discharged she was placed at [facility]. Per her family who is at bedside they state that her mental status has never completely recovered since this admission for pneumonia. Has multiple infections in the past including UTIs with MRSA, Escherichia coli, Enterococcus faecalis. A urinalysis was obtained and it revealed pyuria and culture was done. Urine culture grew Klebsiella oxytoca R ampicillin, Unasyn. Blood cultures 01/04/201909/29 sets no growth to date. Was started on oral doxy and IV colistin. Creatinine of 1.50 on presentation (baseline 1.05). GFR of 34 on presentation (baseline of 51). Takes macrobid as home medication. On losartan at home. Takes Lasix as well. Nephrology was consulted for hypernatremia given s/p L nephrectomy (2017). Past Med Surg Social Fam HX - Past Medical History Medical history: arthritis, asthma, atrial fibrillation, cancer, CHF, COPD, coronary artery disease, diabetes, hyperlipidemia, hypertension, myocardial infarction, venous stasis, other Additional medical history: Sleep apnea, Osteoporosis, Liver lesions, Pneumonia, UTI, type II diabetes Psychiatric history: anxiety, depression - Past Surgical History Surgical History: angioplasty/stent, cholecystectomy, colectomy, coronary bypass (CABG), other Additional surgical history: Left nephrectomy- 2016, Excision of RLE mass 2016, colon resection,2-stents during heart cath - Social History Smoking Status: Never smoker Smokeless Tobacco Status: No Alcohol use: none Drug use: none - Family History Father Family Member Ethnicity: Non- Living Status: Hx Family Cardiac Disorders: Yes ( of NC) Hx Family Respiratory Disorders: No Hx Family Cancer: No Hx Family GI Disorders: No Hx Family Endocrine Disorder: No Hx Family Neuromuscular Disorders: No Hx Family Neurologic Disorders: No Hx Family HEENT Disorders: No Hx Family Autoimmune Disorders: No Brother Family Member Ethnicity: Non- Living Status: Hx Family Cancer: Yes (Throat) Sister Family Member Ethnicity: Non- Living Status: Still Living Hx Family Respiratory Disorders: Yes (Emphysema) Hx Family Cancer: Yes (Breast) Mother Family Member Ethnicity: Non- Living Status: Hx Family Cardiac Disorders: No Hx Family Respiratory Disorders: Yes (asthma) Hx Family Cancer: Yes Hx Family GI Disorders: No Hx Family Endocrine Disorder: No Hx Family Neuromuscular Disorders: No Hx Family Neurologic Disorders: No Hx Family HEENT Disorders: No Hx Family Autoimmune Disorders: No Medications and Allergies Hydralazine HCl 100 mg PO TID 11/29/16 [History] Pravastatin Sodium [Pravachol] 80 mg PO HS 08/08/17 [History] Albuterol Neb [Proventil Neb] 2.5 mg IH Q8H PRN 08/29/18 [History] Albuterol Sulfate [Proair Hfa] 2 puff IH Q6H PRN 08/29/18 [History] Fluticasone Propionate Nasal [Flonase] 1 spray NS DAILY 11/09/18 [History] cloNIDine HCl [Clonidine HCl] 0.3 mg PO TID 11/09/18 [History] Apixaban [Eliquis] 2.5 mg PO BID 11/10/18 [History] Carvedilol [Coreg] 25 mg PO BID 11/10/18 [History] Gabapentin [Neurontin] 100 mg PO BID 11/10/18 [History] Insulin Degludec [Tresiba Flextouch U-200] 45 unit SQ HS 11/10/18 [History] [place]-3/Dha/Epa/Fish Oil [Cvs Fish Oil 1,000 mg Softgel] 1 cap PO DAILY 11/10/18 [History] Potassium Chloride 20 meq PO DAILY 11/10/18 [History] Furosemide [Lasix] 40 mg PO DAILY 12/08/18 [History] Diltiazem CD (24hr) [Cardizem CD] 180 mg PO DAILY cap.er.24h 12/17/18 [Rx] ALPRAZolam [Xanax 0.5 MG Tablet] 0.5 mg PO BID 01/04/19 [History] Aspirin [Adult Aspirin Regimen] 81 mg PO DAILY 01/04/19 [History] Dulaglutide [Trulicity] 0.75 mg SQ TH 01/04/19 [History] Ferrous Sulfate 325 mg PO DAILY 01/04/19 [History] Insulin LISPRO [HumaLOG] 5 units SQ TIDAC MDD + SLIDING SCALE ACHS 01/04/19 [History] Lidocaine [Lc-4] 1 appl TP AD 01/04/19 [History] Losartan Potassium 100 mg PO DAILY 01/04/19 [History] Nitrofurantoin (BID) [Macrobid] 100 mg PO BID 01/04/19 [History] OxyCODONE/APAP 5/325 [Percocet 5/325 MG] 1 tab PO TID PRN 01/04/19 [History] Sucralfate [Carafate] 1 gm PO ACHS 01/04/19 [History] Allergy/AdvReac Type Severity Reaction Status Date / Time Sulfa (Sulfonamide Allergy Severe Swelling Verified 11/30/18 08:51 Antibiotics) of Lip/Tongue/Throat Review of Systems ROS unobtainable: due to mental status Exam - Vital Signs Vital signs: Initial Vital Signs Temp Pulse Resp BP Pulse Ox 97.7 F 56 16 128/55 92 01/04/19 13:30 01/04/19 13:30 01/04/19 13:30 01/04/19 13:30 01/04/19 13:30 Vital Signs - Last 8 Hours Temp Pulse Resp BP Pulse Ox 01/10/19 11:47 96.8 F L 73 16 141/78 83 Intake and Output 01/10/19 01/10/19 01/10/19 07:59 15:59 23:59 Intake Total Balance Intake: IV Fluids 0 / 0 Doxycycline 100 MG In 0.9 % 0 / 0 Sodium Chloride (Mini-Bag +) 100 ML @ 100 mls/hr IVPB Q12HR MELO Rx#:[id number] Oral Other: Meal Breakfast Percent of Meal Consumed 0% 10% # Urine Diapers 1 1 Blood Glucose* 108 114 - General Appearance General appearance: appears started age, frail EENT: mucous membranes dry Neck: no JVD Respiratory: clear Cardiology: no murmurs, no rub, no gallops, no edema, regular rate, regular rhythm, normal S1, normal S2 Gastrointestinal: normoactive bowel sounds, no tenderness, no guarding, no organomegaly, no masses Integumentary: warm and dry Additional Comments: Ecchymosis noted to the bilateral lower extremities in various stages of healing. Bilateral lower extremity dressings are clean, dry, and intact. Neurologic: no focal deficit Additional Comments: AMS. Not responsive to questions. Musculoskeletal: no cyanosis, no clubbing Additional Comments: Non-responsive to questions. Results - Lab Results 01/10/19 05:32 01/10/19 05:32 Most recent lab results 01/10/19 05:32 Calcium 9.0 Magnesium 1.7 Consult Discharge Plan - Plan Referrals: Olvin Gaming DPM [Partnered Physician] -
[2019-01-10] MEDS: Diltiazem CD (24hr) 180 MG CAPSULE PO SCH (17:19)
[2019-01-10] MEDS: Sodium Bicarbonate 50 MEQ in D5% in Water 1,000 ML IVC SCH (18:38)
[2019-01-10] MEDS: *HR* LORazepam 2 MG/ML VIAL IVP PRN (20:14)
[2019-01-11] MEDS ORDERED: *HR* LORazepam 1 MG TABLET PO ONE (00:10)
[2019-01-11] MEDS: Insulin LISPRO 300 UNITS/3 ML VIAL SQ SCH ×4 (01:20→18:21)
[2019-01-11 04:52] LABS: Basophils % 0.5 %; Eosinophils # 0.2 K/mcL (0.0-0.6); Eosinophils % 2.1 %; Hematocrit 30.6 % (35.3-44.9); Hemoglobin 8.9 g/dL (11.5-15.4); Immature Granulocytes % 0.6 % (0-4); Lymphocytes # 1.7 K/mcL (0.6-4.6); Lymphocytes % 20.8 %; Mean Corpuscular HGB Conc 29.1 g/dL (31.6-35.5); Mean Corpuscular Volume 99.7 fL (83.0-100.0); Mean Platelet Volume 10.5 fL (9.4-12.4); Monocytes # 1.1 K/mcL (0.0-1.3); Neutrophils # 5.1 K/mcL (1.6-8.9); Nucleated Red Blood Cells 0.2 /100 WBC (0); Platelet Count 199 K/mcL (140-400); Red Blood Count 3.07 M/mcL (3.82-4.97); Red Cell Distribution Width 16.8 % (11.5-14.5)
[2019-01-11 05:11] LABS: Calcium 8.3 mg/dL (8.6-10.3); Potassium 4.5 mEq/L (3.5-5.1)
[2019-01-11] MEDS: *HR* Enoxaparin 30 MG/0.3 ML SYRINGE SQ SCH (06:15)
[2019-01-11] MEDS: Doxycycline 100 MG in 0.9 % Sodium Chloride Mini Bag 100 ML IVPB SCH ×2 (06:16→18:22)
[2019-01-11] MEDS ORDERED: Sodium Bicarbonate 50 MEQ in D5% in Water 1,000 ML IVC SCH (07:02)
[2019-01-11] MEDS: Diltiazem CD (24hr) 180 MG CAPSULE PO SCH (09:22)
[2019-01-11] MEDS: cloNIDine HCl 0.1 MG TABLET PO SCH ×3 (09:22→21:57)
[2019-01-11] MEDS: Aspirin Enteric Coated 81 MG Tablet PO SCH (09:22)
[2019-01-11] MEDS: Sodium Bicarbonate 50 MEQ in D5% in Water 1,000 ML IVC SCH (11:22)
[2019-01-11] MEDS: OXYCODONE Oral CONC 10 MG/0.5 ML ORAL.SYG SL PRN ×2 (11:33→22:25)
[2019-01-11] MEDS: ALPRAZolam 0.25 MG TABLET PO PRN ×2 (11:33→22:25)
--- NOTE | 2019-01-11 11:39 | Infectious Disease Progress No ---
ID Progress Note Date of Encounter: 01/11/19 Time of Encounter: 11:10 - Subjective Subjective: Patient seen and examined with nursing staff and the patient's daughterat the bedside. No acute events noted overnight. Review of systems unobtainable from the patient. Per the patient's daughter, the patient had a decline in her mental status over the 3 days prior to admission and has not noticed any improvement since hospitalization. She states prior to that, the patient was aw bharati, alert, oriented, and ambulatory with assistance. She was at the [facility] for about 2 weeks after her recent hospitalization for rehabilitation services. - Objective CBC & Chem 7: 01/13/19 03:50 01/13/19 03:50 - Exam Vitals: Temp Pulse Resp BP Pulse Ox 96.9 F L 71 20 188/72 95 01/11/19 11:29 01/11/19 11:29 01/11/19 11:29 01/11/19 11:29 01/11/19 11:29 Exam: Head: Atraumatic, normal inspection, normocephalic. Eye: PERRLA, no scleral icterus noted. ENT: Mucous membranes moist. No odontogenic infection noted. Complete oral exam unobtainable due to patient noncompliance. Neck: Normal inspection, no meningismus. Respiratory: Clear to auscultation. No rales, respiratory distress, rhonchi, or wheezes noted. Cardiovascular: Regular rate and rhythm, S1 and S2 audible. No murmurs, rubs, or gallops. GI: Soft, nondistended, normal bowel sounds. Extremities: No joint swelling, pedal edema, or tenderness noted. Ecchymosis noted to the bilateral lower extremities in various stages of healing. Bilateral lower extremity dressings are clean, dry, and intact. Back: Normal inspection. No vertebral tenderness noted. Neurological: Awake, looks at me when her name is called, but does not respond verbally or follow commands. Yells out spontaneously during exam and appropriate, Skin: Dry, intact, warm. Normal color. No rashes. - Assessment and Plan (1) UTI (urinary tract infection) Current Visit: Yes Status: Acute True infection versus asymptomatic bacteriuria. The patient has altered mental status so review of systems is unobtainable. Unsure if the patient's mental status changes are related to the UTI. Causative organism: K. oxytoca. Currently on Colistin, which should in theory cover this bacteria. Qualifiers: Urinary tract infection type: site unspecified Qualified Code(s): N39.0 - Urinary tract infection, site not specified SNOMED Code(s): 46405296 (2) Skin ulcer of right knee Current Visit: Yes Status: Acute Location: Right knee. Wound culture positive for MRSA. Currently on oral doxycycline. Qualifiers: Non-pressure ulcer stage: limited to breakdown of skin Qualified Code(s): L97.811 - Non-pressure chronic ulcer of other part of right lower leg limited to breakdown of skin SNOMED Code(s): 235569570 (3) Skin ulcer of left lower leg Current Visit: Yes Status: Acute Location: Left lower leg. No obvious indication of infection or fluctuance. Wound culture positive for green resistant Pseudomonas and MRSA. Discussed with the micro-lab and requested Pseudomonas sensitivities for colistin, Avycaz, and Zerbaxa. --> pending. Currently on IV colistin and doxycycline. Qualifiers: Non-pressure ulcer stage: limited to breakdown of skin Qualified Code(s): L97.921 - Non-pressure chronic ulcer of unspecified part of left lower leg limited to breakdown of skin SNOMED Code(s): 704739398, 598568739 (4) ROBERT (acute kidney injury) Current Visit: No Status: Resolved SNOMED Code(s): 48083142, 00502798 (5) Altered mental status Current Visit: Yes Status: Acute Etiology: Unclear. CT of the head 01/04/19 negative for acute intracranial abnormality. Per the family, the patient was alert and oriented 3 and had decline in her mental status about 3 days prior to admission. No meningeal signs. Review of systems unobtainable due to the patient's mental status. Qualifiers: Altered mental status type: unspecified Qualified Code(s): R41.82 - Altered mental status, unspecified SNOMED Code(s): 693090062 (6) CKD (chronic kidney disease) stage 2, GFR 60-89 ml/min Current Visit: No Status: Chronic SNOMED Code(s): 121814952 (7) Multiple malignancies Current Visit: Yes Status: Chronic Metastatic colon cancer with metastases to the liver. Status post cycle 3 of palliative chemotherapy 12/14/18. Scheduled for next chemo 01/11/19.--> [facility] SNOMED Code(s): 920609641 (8) KATINA (obstructive sleep apnea) Current Visit: No Status: Chronic SNOMED Code(s): 28927935 (9) Hypernatremia Current Visit: Yes Status: Acute Nephrology consulted and following. Resolved. SNOMED Code(s): 859729841 - Recommendations Recommendations: Consider neurology to evaluate. Await additional Pseudomonas susceptibilities. Continue colistin 120 mg IV every 12 hours. Continue doxycycline 100 mg by mouth twice a day. Duration of treatment depends on the clinical picture. Monitor renal function and dose adjust antibiotics. Contact precautions per hospital policy. Consult Discharge Plan - Plan Referrals: Olvin Gaming DPM [Partnered Physician] - - Attending Attestation I have personally performed a face to face evaluation on this patient. I have reviewed and agree with the care plan. History and Exam by me shows: Assessment and plan: 1.Skin ulcer of the right knee 2.Skin ulcer on the left leg 3.Acute kidney injury 4.Altered mental status Recommendations: Consider neurology to evaluate. Await additional Pseudomonas susceptibilities. Continue colistin 120 mg IV every 12 hours. Continue doxycycline 100 mg by mouth twice a day. Duration of treatment depends on the clinical picture. Monitor renal function and dose adjust antibiotics. Contact precautions per hospital policy.
--- NOTE | 2019-01-11 12:29 | Nephrology Progress Note ---
Date of Encounter: 01/11/19 Time of Encounter: 10:45 - Assessment and Plan (1) Hypernatremia Current Visit: Yes Status: Resolved Setting of hypovolemia. No No focal weakness on exam. No seizure like symptoms. Poor UOP. FeNa 1.4% indicating pre-renal and/or instrinsic pathology. Renal u/s shows mild caliectasis with mildly prominent extrarenal pelvis-no overt hydronephrosis and status post left nephrectomy. Given she has only one kidney, it would be expected to be slightly larger than normal. Etiology includes ROBERT on CKD. Unlikely post-obstruction given u/s results. Sodium improved from 151 down to 143 today. - Continue D5% 80 mls/hr in 50 meq NaHCO3. (2) Acute kidney injury superimposed on chronic kidney disease Current Visit: No Status: Resolved Stage III CKD. s/p L nephrectomy. Setting of sepsis. Colon cancer mets to kidney. Improving renal function, responsive to IVF: creatinine normalized to 1.08 from 1.32 yesterday, GFR improved from 39 to 49. - Avoid nephrotoxins. - IVF. - Renal dose medications. (3) Metabolic acidosis Current Visit: Yes Status: Resolved Bicarb normalized from 22 to 23 today. - Continue NaHCO3 infusion for today. Can d/c if continues to improve tomorrow. (4) Altered mental status Current Visit: Yes Status: Acute Patient's sodium level has corrected. She does not appear to be uremic. She is not hypoglycemic. However patient still continues to be severely altered with no signs of improvement. Given her history of colon cancer with metastasis, there could be a possibility of mets to the brain however last brain MRI on 12/14/18 showed no acute intracranial abnormality. - Management per primary team. Qualifiers: Altered mental status type: unspecified Qualified Code(s): R41.82 - Altered mental status, unspecified (5) CHF (congestive heart failure) Current Visit: Yes Status: Chronic Qualifiers: Heart failure type: unspecified Heart failure chronicity: unspecified Qualified Code(s): I50.9 - Heart failure, unspecified (6) HTN (hypertension) Current Visit: Yes Status: Chronic Qualifiers: Hypertension type: essential hypertension Qualified Code(s): I10 - Essential (primary) hypertension (7) UTI (urinary tract infection) Current Visit: Yes Status: Acute Qualifiers: Urinary tract infection type: site unspecified Qualified Code(s): N39.0 - Urinary tract infection, site not specified Subjective Interval history: When seen today, patient continues to be severely altered. Was not responsive to questions. Objective - Vital Signs Vital signs: Vital Signs Temp Pulse Resp BP Pulse Ox 01/11/19 11:29 96.9 F L 71 20 188/72 95 01/11/19 07:00 97.0 F L 120 19 144/92 98 01/11/19 04:22 98.7 F 114 19 131/72 95 01/11/19 00:03 97.6 F 95 20 134/80 93 01/10/19 20:40 98.6 F 98 20 125/60 95 01/10/19 18:41 96 01/10/19 16:45 96.4 F L 113 16 145/90 96 Intake and Output 01/10/19 01/11/19 01/11/19 23:59 07:59 15:59 Intake Total 280 / 310 0 / 100 100 / 100 Balance 280 / 310 0 / 100 100 / 100 Intake: IV Fluids 250 / 250 Coly-Mycin M PARENTERAL 150 MG 50 / 50 In 0.9 % Sodium Chloride 50 ML @ 100 mls/hr IVPB Q24H [facility] Rx#: [id number] Doxycycline 100 MG In 0.9 % 200 / 200 Sodium Chloride (Mini-Bag +) 100 ML @ 100 mls/hr IVPB Q12HR [facility] Rx#:[id number] Oral 30 / 60 0 / 100 100 / 100 Other: Meal Breakfast Percent of Meal Consumed 10% 70% # Urine Diapers 1 1 0 # Bowel Movements 0 # Bowel Movement Diapers 0 Weight 81.5 kg Blood Glucose* 104 205 Patient Weight 01/11/19 23:59 Weight 81.5 kg - General Appearance General appearance: Present: appears started age, obese Neck: Present: no JVD Respiratory: Present: clear Cardiology: Present: no murmurs, no rub, no gallops, no edema, regular rate, regular rhythm, normal S1, normal S2 Gastrointestinal: Present: normoactive bowel sounds, no tenderness, no guarding, no organomegaly, no masses Integumentary: Present: no rash, warm and dry Additional Comments: Bilateral lower extremity dressings are clean, dry, and intact. Neurologic: Present: no focal deficit Additional Comments: Awake but not responsive to questions. Yells out spontaneously during exam. Additional Comments: Awake but unresponsive to questions. - Lab 01/11/19 04:40 01/11/19 10:02 Most recent lab results 01/11/19 01/11/19 01/11/19 04:40 06:55 06:55 Calcium 8.3 L Urine Creatinine 71 Urine Sodium 135.8 Consult Discharge Plan - Plan Referrals: Olvin Gaming DPM [Partnered Physician] -
--- NOTE | 2019-01-11 12:52 | Internal Med Progress Note ---
<Karin Mejia - Last Filed: 01/11/19 14:12> Hospitalist Progress Note - Encounter Date of Encounter: 01/11/19 - Exam Vitals: Temp Pulse Resp BP Pulse Ox 96.9 F L 71 20 188/72 95 01/11/19 11:29 01/11/19 11:29 01/11/19 11:29 01/11/19 11:29 01/11/19 11:29 - Time Spent with Patient Total time spent is greater than 50% in coordination of care (as documented) at patient's floor/unit and/or counseling patient: Internal Medicine: Result - Labs CBC & Chem 7: 01/11/19 04:40 01/11/19 10:02 Labs: Short CBC 01/11/19 Range/Units 04:40 WBC 8.1 (4.3-11.1) K/mcL Hgb 8.9 L (11.5-15.4) g/dL Hct 30.6 L (35.3-44.9) % Plt Count 199 (140-400) K/mcL Neutrophils # 5.1 (1.6-8.9) K/mcL BMP 01/10/19 01/11/19 01/11/19 21:30 04:40 04:40 Sodium 148 H 143 143 Potassium 4.5 Chloride 113 H Carbon Dioxide 23 BUN 23 Creatinine 1.08 Glucose 400 H Calcium 8.3 L 01/11/19 10:02 Sodium 147 H Potassium Chloride Carbon Dioxide BUN Creatinine Glucose Calcium - ABG Interpretation ABG results: PT/INR, D-dimer PT 14.5 Seconds (9.4-12.1) H 01/04/19 13:53 - Impressions Impressions Retroperitoneum Ultrasound 01/10/19 22:00 IMPRESSION: Mild caliectasis with mildly prominent extrarenal pelvis-no overt hydronephrosis. Status post left oophorectomy. D/ / Duarte Cat / Duarte Cat Interpreting Provider: Duarte Cat Consult Discharge Plan - Plan Referrals: Olvin Gaming DPM [Partnered Physician] - - Attending Attestation I examined this patient and my medical decision-making was reviewed with the Resident Physician Dr Gutierrez. I agree with the documented findings, disposition and treatment plan as described except to the extent set forth below. Ms Hitchcock is admitted with lethargy in the setting of stage IV colon cancer, UTI, leg infection, hypernatremia sitter at bedside, no family present She was very agitated this mornign and is finally sleeping. Sitter notes she remains lethargic, no meaningful interaction, does not follow commands, does not speak. appears comfortable. Sitter confirmed did eat some breakfast. I spoke with her daughter Brit today, as did ID and Nephro consultants. She is up to date with treatment and that hypernatremia and kidney function, electrolytes improved, infection appears well controlled. All teams conveyed that with no improvement in mentation this may be cancer/treatment related. She is agreeable to palliative care and oncology consults for further discussion of prognosis and to establish goals of care now that her mother cannot make decisions. gen- asleep, appears stated age cv- reg rate and irreg/irreg rhythm, no pitting le edema, no jvd lungs- ctabl, no wheezing, rhonchi or crackles, normal resp effort on room air abd- soft, no apparent tenderness, no guard or grimace to palpation, non distended neuro- lethargic with eyes open but sitting upright in bed, CN grossly intact on this exam limited by her cooperation Encephalopathy most likely multifactorial infectious + metabolic with hypernatremia, suspecting metastatic cancer component now that other issues are improving and mentation is not Most recent MRI rain last month was without brain mets -treatments as below -cont sitter -discussed with daughter will get onc and palliative consults Klebsiella UTI BL leg wounds, R knee ulcer + MRSA -appreciate ID recs, cont colistin + doxy and following cxs Afib, currently tachycardic intermittently -CCB, uptitrate dose as needed today, monitor lytes, tele, prn BB -I discussed with her daughter Brit 01/09 that AC is being held this admission due to fall risk and she was aware and agrees, will cont lovenox for vte ppx at this time Hypernatremia- improving, 2/2 hypovolemia/ lack of oral intake -nephro consulted,NaHCO3 fluids as per nephro, cont to trend HTN- prn iv antihypertensive + oral meds, cont to monitor further diagnoses and plan as noted by resident <BrendaSabina Jacquie - Last Filed: 01/11/19 14:53> Hospitalist Progress Note - Encounter Date of Encounter: 01/11/19 Time of Encounter: 10:00 - Subjective Interval History: Patient seen and examined at bedside today. She remains lethargic, not following commands. She had episodes of agitation overnight. She is currently asleep, the sitter present in the room. Daughter of the patient was contacted and spoke with nephrology, infectious disease, hospitalist team. Patient has no improvement in mentation and palliative as well as oncology will be consulted for prognosis and goals.. Review of systems unobtainable. - Exam Vitals: Temp Pulse Resp BP Pulse Ox 96.9 F L 71 20 188/72 95 01/11/19 11:29 01/11/19 11:29 01/11/19 11:29 01/11/19 11:29 01/11/19 11:29 Exam: Gen: Vitals noted. A&Ox0, lethargic, laying on back in bed. No family at bedside HEENT: PERRL/EOMI, oropharynx clear, Normocephalic, atraumatic, mucus membranes dry Cardiac: RRR, no murmur, +S1/S2, radial and dorsal pedis pulses 3+ and symmetrical Pulmonary: Diminished breath sounds bilaterally, no wheezes, rales or rhonchi, equal chest expansion Abdomen: soft, nontender, BS noted, no guarding, no rebound. MSK: ROM intact, no joint swelling noted. Extremities: 1+ pitting edema bilaterally to knees, no calf tenderness, no c yanosis or clubbing. Wounds on lower extremities are dressed and dry. Small abrasions on upper extremities dressed. Neuro: A&Ox0, moves all extremities, no focal deficits, not following commands Psych: Unable to assess - Assessment and Plan (1) Altered mental status Current Visit: Yes Status: Acute Assessment and Plan: Multifactorial-infection, metabolic, possible metastatic Continues to be lethargic, agitated, delirious Brain MRI 12/14/18-no acute intracranial abnormality Head CT 01/04/19-no acute intracranial abnormality, diffuse atrophic changes with findings suggesting chronic microvascular ischemia Electrolytes improved, patient on appropriate antibiotic coverage, suspect less likely secondary to these factors, oncology will be consulted Continue antibiotic coverage doxycycline, colistin Continue benzodiazepine for agitation Continue monitoring sodium Nephrology-continue D5 percent 80 mL/h and 50 mEq sodium bicarbonate, may discontinue if metabolic acidosis continues to improve infectious disease- continue colistin and doxycycline, duration of treatment depending on clinical picture, dose adjust antibiotics per renal function Consults to palliative care, oncology Goals of care discussion Continue sitter (2) Metabolic encephalopathy Current Visit: Yes Status: Acute Assessment and Plan: Continue to monitor electrolytes Sodium currently improved however is now 147 Renal function has improved Continue to monitor glucose closely as patient is on D5 (3) Hypernatremia Current Visit: Yes Status: Acute Assessment and Plan: Initially improved however it is now 147 Continue D5 percent with sodium bicarbonate per nephrology recommendations Retroperitoneal ultrasound revealed mild caliectasis with mildly prominent extrarenal pelvis, no overt hydronephrosis Continue to monitor (4) Urinary tract infection Current Visit: Yes Status: Acute Assessment and Plan: Urine culture positive for Klebsiella oxytoca Continue doxycycline, colistin Continue fluids (5) Ulcer of leg, chronic, left Current Visit: Yes Status: Acute Assessment and Plan: Ulcer on left lower extremity Britton resistant pseudomonal sepsis and MRSA Continue doxycycline, colistin Infectious disease following Sensitivities for Pseudomonas remain pending Contact precautions (6) Skin ulcer of right knee Current Visit: Yes Status: Acute Assessment and Plan: Culture of right knee ulcer positive for MRSA Continue doxycycline, colistin (7) CKD (chronic kidney disease) stage 3, GFR 30-59 ml/min Current Visit: Yes Status: Chronic Assessment and Plan: Renal function improving with fluids Status post left nephrectomy Creatinine currently 1.08 Urine creatinine 71, urine sodium 135, urine osmolality 530 Retroperitoneal ultrasound revealed mild caliectasis with mildly prominent extrarenal pelvis, no overt hydronephrosis (8) HTN (hypertension) Current Visit: Yes Status: Chronic Assessment and Plan: Continue clonidine, carvedilol, losartan (9) CHF (congestive heart failure) Current Visit: Yes Status: Chronic Assessment and Plan: Not in exacerbation Ejection fraction 55%, indeterminate diastolic function Continue fluid resuscitation (10) PAF (paroxysmal atrial fibrillation) Current Visit: Yes Status: Chronic Assessment and Plan: Rate control with carvedilol, diltiazem Continue to hold liquids secondary to fall risk Will do 60 mg diltiazem this afternoon to assess whether or not daily dose needs to be increased for better heart rate control (11) Multiple malignancies Current Visit: Yes Status: Chronic Assessment and Plan: 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 (12) DVT prophylaxis Current Visit: Yes Status: Acute DVT Prophylaxis: Lovenox - Time Spent with Patient Total time spent is greater than 50% in coordination of care (as documented) at patient's floor/unit and/or counseling patient: Internal Medicine: Result - Labs CBC & Chem 7: 01/11/19 04:40 01/11/19 10:02 Labs: Short CBC 01/11/19 Range/Units 04:40 WBC 8.1 (4.3-11.1) K/mcL Hgb 8.9 L (11.5-15.4) g/dL Hct 30.6 L (35.3-44.9) % Plt Count 199 (140-400) K/mcL Neutrophils # 5.1 (1.6-8.9) K/mcL BMP 01/10/19 01/11/19 01/11/19 21:30 04:40 04:40 Sodium 148 H 143 143 Potassium 4.5 Chloride 113 H Carbon Dioxide 23 BUN 23 Creatinine 1.08 Glucose 400 H Calcium 8.3 L 01/11/19 10:02 Sodium 147 H Potassium Chloride Carbon Dioxide BUN Creatinine Glucose Calcium - ABG Interpretation ABG results: PT/INR, D-dimer PT 14.5 Seconds (9.4-12.1) H 01/04/19 13:53 - Impressions Impressions Retroperitoneum Ultrasound 01/10/19 22:00 IMPRESSION: Mild caliectasis with mildly prominent extrarenal pelvis-no overt hydronephrosis. Status post left oophorectomy. D/ / Duarte Cat / Duarte Cat Interpreting Provider: Duarte Cat <Sabina Gutierrez - Last Filed: 01/11/19 14:53> (1) Altered mental status Qualifiers: Altered mental status type: somnolence Qualified Code(s): R40.0 - Somnolence (4) Urinary tract infection Qualifiers: Urinary tract infection type: acute cystitis Hematuria presence: without hematuria Qualified Code(s): N30.00 - Acute cystitis without hematuria (5) Ulcer of leg, chronic, left Qualifiers: Non-pressure ulcer stage: with fat layer exposed Qualified Code(s): L97.922 - Non-pressure chronic ulcer of unspecified part of left lower leg with fat layer exposed (6) Skin ulcer of right knee Qualifiers: Non-pressure ulcer stage: limited to breakdown of skin Qualified Code(s): L97.811 - Non-pressure chronic ulcer of other part of right lower leg limited to breakdown of skin (8) HTN (hypertension) Qualifiers: Hypertension type: essential hypertension Qualified Code(s): I10 - Essential (primary) hypertension (9) CHF (congestive heart failure) Qualifiers: Heart failure type: unspecified Heart failure chronicity: unspecified Qualified Code(s): I50.9 - Heart failure, unspecified
[2019-01-11] MEDS: Lidocaine 4% CREAM (LMX) 5 GM TP SCH (15:29)
--- NOTE | 2019-01-11 16:26 | Palliative - Consult Note ---
Date of Encounter: 01/12/19 Time of Encounter: 16:00 - Assessment and Plan (1) Agitation Current Visit: No Status: Acute Assessment and plan: Patient is in alprazolam 0.25mg BID Was given Lorazepam for agitation, will discontinue. Please use Haldol prn (2) Generalized pain Current Visit: No Status: Acute Assessment and plan: Patient has several wounds, moans and groans when touched. Oxycodone 5mg Q4H prn please premedicate before care and turns (3) Goals of care, counseling/discussion Current Visit: No Status: Acute Assessment and plan: Called and reached Brit. Patient has 3 children, and Brit is the primary MPOA. Discussed patient's medical history and history of present illness. Explained theneed for goals of care discussion. Daughter will come in tomorrow at 11 am with siblings. Palliative care will follow up. (4) Altered mental status Current Visit: Yes Status: Acute Assessment and plan: Liquely multifactorial: sepsis, metabolic imbalances and disease progression. Patient mental status have not improved despite aggressive medical therapy. Management with Haldol prn as above Qualifiers: Altered mental status type: unspecified Qualified Code(s): R41.82 - Altered mental status, unspecified (5) Malignant tumor of ascending colon Current Visit: No Status: Chronic Assessment and plan: Oncology consult appreciated, patient was receiving palliative chemo and now is no longer candidate due to worsening functional status. Palliative-CN HPI - Data of Consult Patient: new to practice Consult date: 01/11/19 Requesting Physician: Karin Mejia Primary Care Provider: PCP NONE - Consult Narrative Palliative Care/Comfort Measures: Palliative care Reason for consult: Goals of care discussion History of present illness: Ms. Hitchcock is a 73 year old female with Metastatic colon cancer on Palliative chemotherapy, preserved ejection fraction heart failure, COPD, coronary artery disease status post 2 stents in 2004 and CABG in 2013, prior NV, diabetes mellitus, hyperlipidemia, hypertension, venous stasis, anxiety, admitted for altered mental status and UTI. Patient is lethargic, history from chart review and daughter reached over the phone. She was admitted in November 2017 for pneumonia and was noted to have altered mental status changes at this time. MRI of the brain was negative for intracranial metastasis. She was discharged to SNF and per daughter her mental status has declined since then. She is being treated for bilateral lower extremity wound infections Britton resistant pseudomonal sepsis and MRSA as well as metabolic encephalopathy. The etiology of her metabolic encephalopathy is unclear, she has had extensive workup and correction of electrolyte imbalances and her mentation has not improved despite this. Palliative care consult for goals of care discussion and hospice evaluation. At the time of exam, patient lethargic, opening eyes transiently to name calling, non verbal, not following commands. CC: Karin Mejia - Time Spent with Patient Time: Total time spent is greater than 50% in coordination of care (as documented) at patient's floor/unit and/or counseling patient: Time with patient: 60 minutes Past Med Surg Social Fam HX - Past Medical History Medical history: arthritis, asthma, atrial fibrillation, cancer, CHF, COPD, cor onary artery disease, diabetes, hyperlipidemia, hypertension, myocardial infarction, venous stasis, other Additional medical history: Sleep apnea, Osteoporosis, Liver lesions, Pneumonia, UTI, type II diabetes Psychiatric history: anxiety, depression - Past Surgical History Surgical History: angioplasty/stent, cholecystectomy, colectomy, coronary bypass (CABG), other Additional surgical history: Left nephrectomy- 2017, Excision of RLE mass 2017, colon resection,2-stents during heart cath - Social History Smoking Status: Never smoker Smokeless Tobacco Status: No Alcohol use: none Drug use: none - Family History Father Family Member Ethnicity: Non- Living Status: Hx Family Cardiac Disorders: Yes ( of [place]) Hx Family Respiratory Disorders: No Hx Family Cancer: No Hx Family GI Disorders: No Hx Family Endocrine Disorder: No Hx Family Neuromuscular Disorders: No Hx Family Neurologic Disorders: No Hx Family HEENT Disorders: No Hx Family Autoimmune Disorders: No Brother Family Member Ethnicity: Non- Living Status: Hx Family Cancer: Yes (Throat) Sister Family Member Ethnicity: Non- Living Status: Still Living Hx Family Respiratory Disorders: Yes (Emphysema) Hx Family Cancer: Yes (Breast) Mother Family Member Ethnicity: Non- Living Status: Hx Family Cardiac Disorders: No Hx Family Respiratory Disorders: Yes (asthma) Hx Family Cancer: Yes Hx Family GI Disorders: No Hx Family Endocrine Disorder: No Hx Family Neuromuscular Disorders: No Hx Family Neurologic Disorders: No Hx Family HEENT Disorders: No Hx Family Autoimmune Disorders: No Medications and Allergies Hydralazine HCl 100 mg PO TID 11/29/16 [History] Pravastatin Sodium [Pravachol] 80 mg PO HS 08/08/17 [History] Albuterol Neb [Proventil Neb] 2.5 mg IH Q8H PRN 08/29/18 [History] Albuterol Sulfate [Proair Hfa] 2 puff IH Q6H PRN 08/29/18 [History] Fluticasone Propionate Nasal [Flonase] 1 spray NS DAILY 11/09/18 [History] cloNIDine HCl [Clonidine HCl] 0.3 mg PO TID 11/09/18 [History] Apixaban [Eliquis] 2.5 mg PO BID 11/10/18 [History] Carvedilol [Coreg] 25 mg PO BID 11/10/18 [History] Gabapentin [Neurontin] 100 mg PO BID 11/10/18 [History] Insulin Degludec [Tresiba Flextouch U-200] 45 unit SQ HS 11/10/18 [History] [place]-3/Dha/Epa/Fish Oil [[facility] Fish Oil 1,000 mg Softgel] 1 cap PO DAILY 11/10/18 [History] Potassium Chloride 20 meq PO DAILY 11/10/18 [History] Furosemide [Lasix] 40 mg PO DAILY 12/08/18 [History] Diltiazem CD (24hr) [Cardizem CD] 180 mg PO DAILY cap.er.24h 12/17/18 [Rx] ALPRAZolam [Xanax 0.5 MG Tablet] 0.5 mg PO BID 01/04/19 [History] Aspirin [Adult Aspirin Regimen] 81 mg PO DAILY 01/04/19 [History] Dulaglutide [Trulicity] 0.75 mg SQ TH 01/04/19 [History] Ferrous Sulfate 325 mg PO DAILY 01/04/19 [History] Insulin LISPRO [HumaLOG] 5 units SQ TIDAC MDD + SLIDING SCALE ACHS 01/04/19 [History] Lidocaine [Lc-4] 1 appl TP AD 01/04/19 [History] Losartan Potassium 100 mg PO DAILY 01/04/19 [History] Nitrofurantoin (BID) [Macrobid] 100 mg PO BID 01/04/19 [History] OxyCODONE/APAP 5/325 [Percocet 5/325 MG] 1 tab PO TID PRN 01/04/19 [History] Sucralfate [Carafate] 1 gm PO ACHS 01/04/19 [History] Allergy/AdvReac Type Severity Reaction Status Date / Time Sulfa (Sulfonamide Allergy Severe Swelling Verified 11/30/18 08:51 Antibiotics) of Lip/Tongue/Throat ROS unobtainable: due to mental status Palliative Care-Exam - Constitutional Vitals: Temp Pulse Resp BP Pulse Ox 97.5 F L 70 19 129/75 90 01/11/19 14:38 01/11/19 14:38 01/11/19 14:38 01/11/19 14:38 01/11/19 14:38 Exam: Gen: Vitals noted. A&Ox0, lethargic, laying on back in bed. No family at bedside HEENT: PERRL/EOMI, oropharynx clear, Normocephalic, atraumatic, mucus membranes dry Cardiac: RRR, no murmur, +S1/S2, radial and dorsal pedis pulses 3+ and symmetrical Pulmonary: Diminished breath sounds bilaterally, no wheezes, rales or rhonchi, equal chest expansion Abdomen: soft, nontender, BS noted, no guarding, no rebound. MSK: ROM intact, no joint swelling noted. Extremities: 1+ pitting edema bilaterally to knees, no calf tenderness, no cya nosis or clubbing. Wounds on lower extremities are dressed and dry. Small abrasions on upper extremities dressed, clean dressings on arms. Neuro: A&Ox0, moves all extremities, no focal deficits, not following commands Psych: Unable to assess Internal Medicine - CN: Reslt - Labs CBC & Chem 7: 01/12/19 01:20 01/12/19 05:05 Labs: Short CBC 01/11/19 Range/Units 04:40 WBC 8.1 (4.3-11.1) K/mcL Hgb 8.9 L (11.5-15.4) g/dL Hct 30.6 L (35.3-44.9) % Plt Count 199 (140-400) K/mcL Neutrophils # 5.1 (1.6-8.9) K/mcL BMP 01/10/19 01/11/19 01/11/19 21:30 04:40 04:40 Sodium 148 H 143 143 Potassium 4.5 Chloride 113 H Carbon Dioxide 23 BUN 23 Creatinine 1.08 Glucose 400 H Calcium 8.3 L 01/11/19 10:02 Sodium 147 H Potassium Chloride Carbon Dioxide BUN Creatinine Glucose Calcium - ABG Interpretation ABG results: PT/INR, D-dimer PT 14.5 Seconds (9.4-12.1) H 01/04/19 13:53 - Impressions Impressions Retroperitoneum Ultrasound 01/10/19 22:00 IMPRESSION: Mild caliectasis with mildly prominent extrarenal pelvis-no overt hydronephrosis. Status post left oophorectomy. D/ / Duarte Cat / Duarte Cat Interpreting Provider: Duarte Cat Consult Discharge Plan - Plan Referrals: Olvin Gaming DPM [Partnered Physician] - Palliative Quality Palliative Quality: Screen for Code Status: Yes, Screen for Goals of Care: Yes, Screen for Pain: Yes, If Pain Regimen Started, Initiate Bowel Regimen: Yes, Screen for Nausea/Vomitting: No Code Status: 01/04/19 16:14 Resuscitation Status: Active [RES] Routine Comment: Resuscitation Status: Full Code Palliative Scale - Palliative Performance Scale How ambulatory is this patient?: Totally bed bound What is patient's level of activity and evidence of disease?: Unable to do most activity, Extensive disease How much self-care assistance does patient require?: Total care How much oral intake does the patient have?: Minimal to sips What is this patient's level of consciousness?: Full or drowsy with or without confusion Palliative Performance Score: 30 %
--- NOTE | 2019-01-11 16:51 | Oncology Inp Consult Note ---
<Rex Duncan - Last Filed: 01/11/19 16:56> Date of Encounter: 01/11/19 Time of Encounter: 16:56 - Data of Consult Requesting Physician: Karin Mejia Primary Care Provider: PCP NONE Medications and Allergies Hydralazine HCl 100 mg PO TID 11/29/16 [History] Pravastatin Sodium [Pravachol] 80 mg PO HS 08/08/17 [History] Albuterol Neb [Proventil Neb] 2.5 mg IH Q8H PRN 08/29/18 [History] Albuterol Sulfate [Proair Hfa] 2 puff IH Q6H PRN 08/29/18 [History] Fluticasone Propionate Nasal [Flonase] 1 spray NS DAILY 11/09/18 [History] cloNIDine HCl [Clonidine HCl] 0.3 mg PO TID 11/09/18 [History] Apixaban [Eliquis] 2.5 mg PO BID 11/10/18 [History] Carvedilol [Coreg] 25 mg PO BID 11/10/18 [History] Gabapentin [Neurontin] 100 mg PO BID 11/10/18 [History] Insulin Degludec [Tresiba Flextouch U-200] 45 unit SQ HS 11/10/18 [History] [place]-3/Dha/Epa/Fish Oil [[facility] Fish Oil 1,000 mg Softgel] 1 cap PO DAILY 11/10/18 [History] Potassium Chloride 20 meq PO DAILY 11/10/18 [History] Furosemide [Lasix] 40 mg PO DAILY 12/08/18 [History] Diltiazem CD (24hr) [Cardizem CD] 180 mg PO DAILY cap.er.24h 12/17/18 [Rx] ALPRAZolam [Xanax 0.5 MG Tablet] 0.5 mg PO BID 01/04/19 [History] Aspirin [Adult Aspirin Regimen] 81 mg PO DAILY 01/04/19 [History] Dulaglutide [Trulicity] 0.75 mg SQ TH 01/04/19 [History] Ferrous Sulfate 325 mg PO DAILY 01/04/19 [History] Insulin LISPRO [HumaLOG] 5 units SQ TIDAC MDD + SLIDING SCALE ACHS 01/04/19 [History] Lidocaine [Lc-4] 1 appl TP AD 01/04/19 [History] Losartan Potassium 100 mg PO DAILY 01/04/19 [History] Nitrofurantoin (BID) [Macrobid] 100 mg PO BID 01/04/19 [History] OxyCODONE/APAP 5/325 [Percocet 5/325 MG] 1 tab PO TID PRN 01/04/19 [History] Sucralfate [Carafate] 1 gm PO ACHS 01/04/19 [History] Allergy/AdvReac Type Severity Reaction Status Date / Time Sulfa (Sulfonamide Allergy Severe Swelling Verified 11/30/18 08:51 Antibiotics) of Lip/Tongue/Throat Consult Discharge Plan - Plan Referrals: Olvin Gaming DPM [Partnered Physician] - Inpatient Charges Provider: Dr. Arpit Duncan Follow up - Inpatient: [id number] - Attending Attestation I examined this patient and my medical decision-making was reviewed with the Advanced Practice Nurse. I agree with the documented findings, disposition and treatment plan as described except to the extent set forth below. -Patient with AMS, pseudomonas infection, and metastatic colon cancer. -Her clinical condition is deteriorating. -Agree with palliative care and hospice discussion. -We will sign off at this time. -Please call us if there any further questions. <Sindhu Mena - Last Filed: 01/11/19 17:39> Date of Encounter: 01/11/19 Assessment and Plan (1) Altered mental status Status: Acute Assessment and plan: Etiology unclear but suspect this is due to underlying sepsis CT of the head 01/04/19 negative for acute intracranial abnormality. MRI of the brain 12/14/2018 was negative for acute abnormality and did not reveal any evidence of intracranial metastatic disease Patient's mental status has waxed and waned since then At this time patient is altered and confused and does not respond appropriately to questions Qualifiers: Altered mental status type: unspecified Qualified Code(s): R41.82 - Altered mental status, unspecified (2) Colon cancer metastasized to liver Status: Chronic Assessment and plan: Metastatic colon cancer Palliative chemotherapy with FOLFIRI + Avastin Last dose on 11/30/18 Plan: Patient continues to have waxing and waning altered mental status and is currently confused and agitated Mental status has not improved despite aggressive treatment of infection and electrolyte abnormalities Her continued functional decline in altered mental status with preclude her from being a good treatment candidate moving forward Palliative care has been consulted and has initiated discussion on hospice, oncology would support this decision I attempted contact patient's daughter Brit and had to leave a voice mail, she may call me back over the weekend to discuss patient's case - Data of Consult Patient: known to practice within the last 3 years Consult date: 01/11/19 Requesting Physician: Karin Mejia Primary Care Provider: PCP NONE - Consult Narrative Reason for consult: Metastatic colon CA History of present illness: Ms. Hitchcock is a 73 year old female with Metastatic colon cancer on Palliative chemotherapy with FOLFIRI + Avastin. Last dose on 11/30/18. She was admitted in November 2017 for pneumonia and was noted to have altered mental status changes at this time. MRI of the brain was negative for intracranial metastasis. She was discharged and has not followed up with the cancer center prior to her current admission for urinary tract infection, bilateral lower extremity wound infections Britton resistant pseudomonal sepsis and MRSA as well as metabolic encephalopathy. He is apt etiology of her metabolic encephalopathy is unclear, she has had extensive workup and correction of electrolyte imbalances and her mentation has not improved despite this. Currently patient is confused and agitated and does not answer questions appropriately. Past Med Surg Social Fam HX - Past Medical History Medical history: arthritis, asthma, atrial fibrillation, cancer, CHF, COPD, coronary artery disease, diabetes, hyperlipidemia, hypertension, myocardial infarction, venous stasis, other Additional medical history: Sleep apnea, Osteoporosis, Liver lesions, Pneumonia, UTI, type II diabetes Psychiatric history: anxiety, depression - Past Surgical History Surgical History: angioplasty/stent, cholecystectomy, colectomy, coronary bypass (CABG), other Additional surgical history: Left nephrectomy- 2016, Excision of RLE mass 2017, colon resection,2-stents during heart cath - Social History Smoking Status: Never smoker Smokeless Tobacco Status: No Alcohol use: none Drug use: none - Family History Father Family Member Ethnicity: Non- Living Status: Hx Family Cardiac Disorders: Yes ( of [place]) Hx Family Respiratory Disorders: No Hx Family Cancer: No Hx Family GI Disorders: No Hx Family Endocrine Disorder: No Hx Family Neuromuscular Disorders: No Hx Family Neurologic Disorders: No Hx Family HEENT Disorders: No Hx Family Autoimmune Disorders: No Brother Family Member Ethnicity: Non- Living Status: Hx Family Cancer: Yes (Throat) Sister Family Member Ethnicity: Non- Living Status: Still Living Hx Family Respiratory Disorders: Yes (Emphysema) Hx Family Cancer: Yes (Breast) Mother Family Member Ethnicity: Non- Living Status: Hx Family Cardiac Disorders: No Hx Family Respiratory Disorders: Yes (asthma) Hx Family Cancer: Yes Hx Family GI Disorders: No Hx Family Endocrine Disorder: No Hx Family Neuromuscular Disorders: No Hx Family Neurologic Disorders: No Hx Family HEENT Disorders: No Hx Family Autoimmune Disorders: No ROS unobtainable: due to mental status Oncology - Exam - Constitutional General appearance: no acute distress, no febrile - Head Head exam: Present: atraumatic - Respiratory Respiratory exam: Present: CTAB. Absent: respiratory distress - Cardiovascular Cardiovascular exam: Present: RRR - GI/Abdominal GI/Abdominal exam: Present: normal bowel sounds, soft. Absent: tenderness - Extremities Exam Extremities exam: Present: normal inspection. Absent: calf tenderness - Neurological Exam Neurological exam: Present: altered Additional comments: Does not follow commands - Psychiatric Psychiatric exam: Present: agitated - Skin Skin exam: Present: dry, normal color, warm Additional comments: Dressings noted to bilateral lower extremities dry and intact
[2019-01-11] MEDS: Colistin (Colistimethate) 150 MG in 0.9 % Sodium Chloride 50 ML IVPB SCH (16:56)
[2019-01-11] MEDS: D5% in Water 1,000 ML IVC SCH (18:23)
[2019-01-12 01:55] LABS: Basophils % 0.3 %; Eosinophils # 0.2 K/mcL (0.0-0.6); Eosinophils % 2.3 %; Hemoglobin 8.5 g/dL (11.5-15.4); Immature Granulocytes % 0.4 % (0-4); Lymphocytes # 1.3 K/mcL (0.6-4.6); Lymphocytes % 18.2 %; Mean Corpuscular HGB Conc 30.4 g/dL (31.6-35.5); Mean Corpuscular Volume 98.9 fL (83.0-100.0); Mean Platelet Volume 10.4 fL (9.4-12.4); Monocytes # 0.9 K/mcL (0.0-1.3); Monocytes % 12.9 %; Neutrophils # 4.6 K/mcL (1.6-8.9); Nucleated Red Blood Cells 0.3 /100 WBC (0); Platelet Count 169 K/mcL (140-400); Red Blood Count 2.83 M/mcL (3.82-4.97); Red Cell Distribution Width 16.9 % (11.5-14.5); Segmented Neutrophils % 65.9 %
[2019-01-12 02:02] LABS: Calcium 8.1 mg/dL (8.6-10.3); Potassium 3.7 mEq/L (3.5-5.1)
[2019-01-12] MEDS: Insulin LISPRO 300 UNITS/3 ML VIAL SQ SCH ×4 (02:33→17:46)
[2019-01-12] MEDS: Doxycycline 100 MG in 0.9 % Sodium Chloride Mini Bag 100 ML IVPB SCH ×2 (05:26→17:37)
[2019-01-12] MEDS: *HR* Enoxaparin 30 MG/0.3 ML SYRINGE SQ SCH (05:28)
--- NOTE | 2019-01-12 07:51 | Internal Med Progress Note ---
<Karin Mejia - Last Filed: 01/12/19 12:30> Hospitalist Progress Note - Encounter Date of Encounter: 01/12/19 - Exam Vitals: Temp Pulse Resp BP Pulse Ox 98.4 F 72 17 144/82 96 01/12/19 08:20 01/12/19 08:20 01/12/19 08:20 01/12/19 08:20 01/12/19 08:20 - Time Spent with Patient Total time spent is greater than 50% in coordination of care (as documented) at patient's floor/unit and/or counseling patient: Internal Medicine: Result - Labs CBC & Chem 7: 01/12/19 01:20 01/12/19 10:50 Labs: Short CBC 01/12/19 Range/Units 01:20 WBC 7.0 (4.3-11.1) K/mcL Hgb 8.5 L (11.5-15.4) g/dL Hct 28.0 L (35.3-44.9) % Plt Count 169 (140-400) K/mcL Neutrophils # 4.6 (1.6-8.9) K/mcL BMP 01/11/19 01/11/19 01/11/19 14:46 16:45 21:05 Sodium 148 H 147 H 147 H Potassium Chloride Carbon Dioxide BUN Creatinine Glucose Calcium 01/12/19 01/12/19 01/12/19 01:20 05:05 10:50 Sodium 147 H 147 H 146 H Potassium 3.7 Chloride 117 H Carbon Dioxide 26 BUN 21 Creatinine 1.29 H Glucose 200 H Calcium 8.1 L - ABG Interpretation ABG results: PT/INR, D-dimer PT 14.5 Seconds (9.4-12.1) H 01/04/19 13:53 Consult Discharge Plan - Plan Referrals: Olvin Gaming DPM [Partnered Physician] - - Attending Attestation I examined this patient and my medical decision-making was reviewed with the Resident Physician Dr Hernandez. I agree with the documented findings, disposition and treatment plan as described except to the extent set forth below. Ms Hitchcock is admitted with lethargy in the setting of stage IV colon cancer, UTI, leg infection, hypernatremia sitter at bedside, family and Palliative Care at bedside. family meeting held Update provided. Pt resting comfortably. does not follow commands, alert and holding hands of daughters gen- awake, alert, appears stated age cv- reg rate and irreg/irreg rhythm, no pitting le edema lungs- ctabl, no wheezing, rhonchi or crackles, normal resp effort on room air abd- soft, no apparent tenderness, no guard or grimace to palpation, non distended skin- bl le dressings c/d/i neuro- awake, alert, CN grossly intact no focal deficit appreciated Encephalopathy most likely multifactorial infectious + metabolic with hypernatremia, suspecting metastatic cancer component now that other issues are improving and mentation is not Most recent MRI rain last month was without brain mets -treatments as below -cont sitter -multidisciplinary meeting today and pt daughters have decided to change code status to DNR CC and will be taking her home on hospice in the upcoming days -wish to cont ivf and abx while awaiting transition to hospice Klebsiella UTI BL leg wounds, R knee ulcer + MRSA -appreciate ID recs, cont colistin + doxy Afib, currently tachycardic intermittently, overall rate control improved -CCB, prn BB -AC is being held this admission due to fall risk, family aware and agrees, lovenox for vte ppx Hypernatremia-stable 2/2 hypovolemia/ lack of oral intake -nephro consulted, [id number] HTN- prn iv antihypertensive + oral meds, cont to monitor further diagnoses and plan as noted by resident <Silvestre Hernandez - Last Filed: 01/12/19 13:51> Hospitalist Progress Note - Encounter Date of Encounter: 01/12/19 Time of Encounter: 13:31 - Subjective Interval History: Patient was seen and examined at bedside this morning. Patient is notably a ltered at baseline and unable to participate in history. No family is present at bedside. No acute events overnight. Per SPRAY DRIER who is at bedside, patient has been sleeping soundly all morning however did not eat any of her breakfast or dinner last evening. - Exam Vitals: Temp Pulse Resp BP Pulse Ox 98.6 F 73 16 131/79 90 01/12/19 05:06 01/12/19 05:06 01/12/19 05:06 01/12/19 05:06 01/12/19 05:06 Exam: Gen.: Vitals noted. No acute distress. Patient is sleeping soundly upon when I enter the room, she does stir and makes eye contact with verbal stimuli. She does answer some questions with yes or no., resting comfortably in bed. HEENT: EOMI, oropharynx clear, Normocephalic, atraumatic, dry mucous membranes Cardiac: RRR, no murmur, +S1/S2, No BLE edema Pulmonary: CTA bilaterally, no wheezes, rales or rhonchi, equal chest expansion, unlabored breathing Abdomen: soft, nontender, BS noted, no guarding, no palpable HSM Skin: warm and dry, no visible lesions. MSK: Not assessed due to patient cooperation Neuro: Alert and oriented 0, moves extremities Psych: Unable to appreciate - Assessment and Plan (1) Altered mental status Current Visit: No Status: Acute Assessment and Plan: Multifactorial-infection, metabolic, possible metastatic Continues to be lethargic, agitated, delirious Brain MRI 12/14/18-no acute intracranial abnormality Head CT 01/04/19-no acute intracranial abnormality, diffuse atrophic changes with findings suggesting chronic microvascular ischemia - Etiologies include UTI growing Klebsiella, wound cultures growing green resistant pseudomonas and MRSA - Hypernatremia of 146 most recently which is likely related to no or minimal oral intake - Suspect that this is more likely related to progression of chronic disease in the setting of known stage IV cancer - Despite multiple days of antibiotics and periods of improved electrolyte numbers, patient continues to be disoriented and lethargic/agitated at times. To me, this points to a more accurate picture of progression of disease. Palliative care has been consult, appreciate recommendations. - Oncology is also been consulted and recommends hospice care - ID is on board for antibiotic recommendations, currently on doxycycline, colistin Plan - Agitation with when necessary Haldol per palliative care - Patient to be discharged to hospice care starting Monday - We will continue to treat underlying conditions as able to as below - Continue sitter (2) Metabolic encephalopathy Current Visit: Yes Status: Suspected Assessment and Plan: As above (3) Hypernatremia Current Visit: Yes Status: Acute Assessment and Plan: - Sodium of 146 this morning - Stable from yesterday at 147 - Etiology is likely related to minimal oral intake - Nephrology was consulted, started on D5W with minimal improvement - Patient continues to refuse food or drink Plan - Palliative care consult that and patient will go with hospice - We will continue D5W and defer any changes to nephrology - We will decrease sodium checks to every 6 hours (4) Anemia Current Visit: No Status: Chronic Assessment and Plan: - Hemoglobin of 8.5 this morning - Stable, baseline appears to be 9-10 - No signs of bleeding, will continue monitor (5) Multiple malignancies Current Visit: Yes Status: Chronic Assessment and Plan: - Patient is a very significant history of cancer including colon cancer with metastasis to the liver - Previous metastasis to the kidney status post nephrectomy - Skin cancer of the nose status post resection - Patient is reportedly stage IV in her colon cancer and does follow with [facility] - [facility] is currently recommending hospice care, family meeting today Plan - After discussion with palliative care, patient's family is electing to go to hospice care starting Monday - They still do desire antibiotics and supportive care until that time - Continue management as elsewhere, supportive care, pain control, anxiety control - CODE STATUS changed to DNR comfort care (6) CKD (chronic kidney disease) stage 3, GFR 30-59 ml/min Current Visit: Yes Status: Chronic Assessment and Plan: At baseline Possible mild elevation in creatinine today which is likely related to patient not eating or drinking Has been receiving fluids for hypernatremia as above Continue to monitor (7) Atrial fibrillation with rapid ventricular response Current Visit: Yes Status: Resolved Assessment and Plan: Rate control with carvedilol, diltiazem Appears to become tachycardic with agitation starting in the afternoons with suspected ing Added diltiazem 60 mg one time yesterday with good control of blood pressure and heart rate Heart rate currently well controlled, will consider increase if blood pressure should increase again (8) Urinary tract infection Current Visit: Yes Status: Acute Assessment and Plan: As above Currently growing Klebsiella oxytoca ID is following, currently on doxycycline and colistin (9) Coronary artery disease Current Visit: Yes Status: Chronic Assessment and Plan: - Troponin 0.04 which is trended and adynamic on admission - Patient unable to vocalize any chest pain complaints - EKG obtained that admission and shows no signs of ischemia - We will continue home medications- aspirin, losartan (10) Skin ulcer of left lower leg Current Visit: Yes Status: Acute Assessment and Plan: Per infectious disease Growing green resistant pseudomonas and MRSA (11) Skin ulcer of right knee Current Visit: Yes Status: Acute Assessment and Plan: As above Growing MRSA (12) Hypertension Current Visit: Yes Status: Chronic Assessment and Plan: Better control today 145/72 Currently on home Cardizem with when necessary metoprolol (13) Status post nephrectomy Current Visit: Yes Status: Chronic Assessment and Plan: - Secondary to malignancy with metastatic spread to kidney Resultant stage III chronic kidney disease (14) DVT prophylaxis Current Visit: Yes Status: Acute Assessment and Plan: Lovenox - Time Spent with Patient Total time spent is greater than 50% in coordination of care (as documented) at patient's floor/unit and/or counseling patient: Internal Medicine: Result - Labs CBC & Chem 7: 01/12/19 01:20 01/12/19 10:50 Labs: Short CBC 01/12/19 Range/Units 01:20 WBC 7.0 (4.3-11.1) K/mcL Hgb 8.5 L (11.5-15.4) g/dL Hct 28.0 L (35.3-44.9) % Plt Count 169 (140-400) K/mcL Neutrophils # 4.6 (1.6-8.9) K/mcL BMP 01/11/19 01/11/19 01/11/19 10:02 14:46 16:45 Sodium 147 H 148 H 147 H Potassium Chloride Carbon Dioxide BUN Creatinine Glucose Calcium 01/11/19 01/12/19 01/12/19 21:05 01:20 05:05 Sodium 147 H 147 H 147 H Potassium 3.7 Chloride 117 H Carbon Dioxide 26 BUN 21 Creatinine 1.29 H Glucose 200 H Calcium 8.1 L - ABG Interpretation ABG results: PT/INR, D-dimer PT 14.5 Seconds (9.4-12.1) H 01/04/19 13:53 <Benson Hernandezew - Last Filed: 01/12/19 13:51> (1) Altered mental status Qualifiers: Altered mental status type: somnolence Qualified Code(s): R40.0 - Somnolence (4) Anemia Qualifiers: Anemia type: other cause Other causes of anemia: acute posthemorrhagic Qualified Code(s): D62 - Acute posthemorrhagic anemia (8) Urinary tract infection Qualifiers: Urinary tract infection type: acute cystitis Hematuria presence: without hematuria Qualified Code(s): N30.00 - Acute cystitis without hematuria (9) Coronary artery disease Qualifiers: Coronary Disease-Associated Artery/Lesion type: [place] artery [place] vs. transplanted heart: [place] heart Associated angina: without angina Qualified Code(s): I25.10 - Atherosclerotic heart disease of [place] coronary artery without angina pectoris (10) Skin ulcer of left lower leg Qualifiers: Non-pressure ulcer stage: limited to breakdown of skin Qualified Code(s): L97.921 - Non-pressure chronic ulcer of unspecified part of left lower leg limited to breakdown of skin (11) Skin ulcer of right knee Qualifiers: Non-pressure ulcer stage: limited to breakdown of skin Qualified Code(s): L97.811 - Non-pressure chronic ulcer of other part of right lower leg limited to breakdown of skin (12) Hypertension Qualifiers: Hypertension type: essential hypertension
[2019-01-12] MEDS: cloNIDine HCl 0.1 MG TABLET PO SCH ×3 (08:18→20:16)
[2019-01-12] MEDS: Diltiazem CD (24hr) 180 MG CAPSULE PO SCH (08:18)
[2019-01-12] MEDS: Aspirin Enteric Coated 81 MG Tablet PO SCH (08:18)
[2019-01-12] MEDS: Haloperidol Lactate 5 MG/ML VIAL IVP PRN ×3 (10:29→20:28)
[2019-01-12] MEDS: OXYCODONE Oral CONC 10 MG/0.5 ML ORAL.SYG SL PRN ×2 (10:29→14:27)
[2019-01-12] MEDS ORDERED: *HR* LORazepam Oral Conc 2 MG/ML SL PRN (11:45)
--- NOTE | 2019-01-12 11:49 | Palliative Progress Note ---
Date of Encounter: 01/12/19 Time of Encounter: 11:00 - Assessment and plan (1) Colon cancer metastasized to liver Current Visit: No Status: Chronic Assessment and plan: Patient is a patient of [facility] outpatient. Brit reports she and Sindhu Mena CNP had a good conversation yesterday evening and verbalized understanding that patient is no longer a candidate for Palliative chemo therapy. Oncology recommendations appreciated. (2) Palliative care encounter Current Visit: Yes Status: Acute (3) Goals of care, counseling/discussion Current Visit: No Status: Acute Assessment and plan: Had a 45 minute discussion regarding goals of care patient patient's MPOA daughter Brit and daughter Ceci. Patient had been in [facility] for rehab. Had been up with walker and working on strength. Family admits to continuous decline since November. Dr. Hassan joined meeting to review from clinical standpoint patient is not improving mentally, whereas improving in all facets that could be linked to causing deterioration in mentation. Family verbalized understanding. Family concerned that patient may not get adequate enough care returning to [facility] home. Reviewed insurance requirements for paying for insurance involves ability to follow commands and participate in therapy. Ceci then added that her friend works for [facility] hospice and they would like more information on what hospice could offer for assistance at home. Patient resides with Brit at home and would be cared for by family 20/03 with hospice support. Explained hospice care involves nurses and aides coming to home to help care for patient, but does not stay for long periods of times. Explained coverage of medications and DME. Ceci and Brit concurred that hospice care would be best for Ms. Hitchcock and would like [facility] hospice. Family reports they cannot bring her home until Monday as they need a hospital bed and need to get some issues resolved prior to her discharge. Family expressed desire to change CODE STATUS to DNRCC. Want patient kept comfortable. DME needs: Briefs, hospital bed. [facility] will be called with referral on Monday. Updated Dr. Hassan with discharge plan, primary team in agreement. Family requested to continue IV antibiotics and IVF until discharge. (4) Altered mental status Current Visit: No Status: Acute Qualifiers: Altered mental status type: somnolence Qualified Code(s): R40.0 - Somnolence (5) Agitation Current Visit: No Status: Acute Assessment and plan: Patient continues to be agitated. Will add Haldol SL. Patient has Ativan SL. (6) Generalized pain Current Visit: No Status: Acute Assessment and plan: Patient has Oxycodone SL for pain control, continue as needed. - Time Spent With Patient Total time spent is greater than 50% in coordination of care (as documented) at patient's floor/unit and/or counseling patient: Greater than 35 minutes - Subjective Interval history: Patient lying in bed with eyes open and looking around room upon arrival for assessment. Patient able to speak and nod head occassionally with frequent prom pting. Patient's two daughters (Yohannes and Ceci) present at bedside. Patient acknowledges she is afraid and hurting, but made no response when asked if having nausea, vomiting, and dyspnea. Patient's sitter present at bedside. Patient not following commands more often than not. - Constitutional Vitals: Abnormal lab results WBC 12.3 K/mcL (4.3-11.1) H 01/06/19 00:25 RBC 2.83 M/mcL (3.82-4.97) L 01/12/19 01:20 Hgb 8.5 g/dL (11.5-15.4) L 01/12/19 01:20 Hct 28.0 % (35.3-44.9) L 01/12/19 01:20 MCV 101.7 fL (83.0-100.0) H 01/06/19 00:25 MCHC 30.4 g/dL (31.6-35.5) L 01/12/19 01:20 RDW 16.9 % (11.5-14.5) H 01/12/19 01:20 9.8 K/mcL (1.6-8.9) H 01/05/19 05:34 1.4 K/mcL (0.0-1.3) H 01/10/19 05:32 Nucleated RBCs/100 WBC 0.3 /100 WBC (0) H 01/12/19 01:20 PT 14.5 Seconds (9.4-12.1) H 01/04/19 13:53 Sodium 146 mEq/L (136-145) H 01/12/19 10:50 Chloride 117 mEq/L (98-107) H 01/12/19 01:20 Carbon Dioxide 22 mEq/L (23-29) L 01/10/19 05:32 BUN 27 mg/dL (8-23) H 01/10/19 05:32 1.29 mg/dL (0.60-1.20) H 01/12/19 01:20 Est GFR ( Amer) 49 (> 60) L 01/12/19 01:20 Est GFR (Non-Af Amer) 40 (> 60) L 01/12/19 01:20 30 (6-26) H 01/07/19 04:33 Glucose 200 mg/dL (70-105) H 01/12/19 01:20 POC Glucose 145 mg/dL (70-99) H 01/11/19 17:16 6.8 % (-5.6) H 01/05/19 09:16 313 (280-300) H 01/12/19 01:20 Calcium 8.1 mg/dL (8.6-10.3) L 01/12/19 01:20 142 Units/L (34-104) H 01/10/19 05:32 21 Units/L (30-223) L 01/04/19 13:53 0.04 ng/mL (< 0.04) H* 01/04/19 19:40 2.8 g/dL (3.5-5.7) L 01/10/19 05:32 3.7 g/dL (2.4-3.5) H 01/10/19 05:32 0.8 (1.1-2.2) L 01/10/19 05:32 TSH 0.127 mcIU/mL (0.340-5.600) L 01/04/19 13:53 Turbid (Clear) A 01/04/19 13:45 Ur Leukocyte Esterase Large (Negative) H 01/04/19 13:45 5-15 per hpf (0-3) H 01/04/19 13:45 TNTC per hpf (0-3) H 01/04/19 13:45 Ur Squamous Epith Cells Many per lpf (None-Few) H 01/04/19 13:45 Many per hpf (None-Few) H 01/04/19 13:45 Ur Culture Indicated? YES (NO) A 01/04/19 13:45 U Benzodiazepines Scrn Positive ng/mL (Tnryhd=028) H 01/04/19 13:45 General appearance: Present: disheveled, mild distress - Head Head exam: Present: atraumatic, normal inspection - Eye Eye exam: Present: conjuntiva pink. Absent: periorbital swelling, periorbital tenderness - ENT ENT exam: Present: mucous membranes dry, normal external ear exam - Neck Neck exam: Present: normal inspection - Respiratory Respiratory exam: Present: CTAB. Absent: accessory muscle use, respiratory distress - Cardiovascular Cardiovascular exam: Present: +S1, +S2 - GI/Abdominal GI/Abdominal exam: Present: hypoactive bowel sounds, soft. Absent: tenderness - Rectal Rectal exam: Present: deferred - Expanded Exam Female exam: Present: deferred (brief in place.) - Extremities Exam Extremities exam: Present: normal inspection. Absent: pedal edema - Back Exam Back exam: Present: normal inspection - Neurological Exam Neurological exam: Present: alert, altered. Absent: oriented X3 - Expanded Neurological Exam Coma Scale Eye Opening: To Voice Coma Scale Motor Response: Withdraws to Pain Coma Scale Verbal Response: Confused Coma Scale Total: 11 - Psychiatric Psychiatric exam: Present: agitated, anxious - Skin Skin exam: Present: dry, pallor, warm. Absent: intact Palliative Quality Palliative Quality: Screen for Code Status: Yes, Screen for Goals of Care: Yes, Screen for Pain: Yes, If Pain Regimen Started, Initiate Bowel Regimen: Yes, Screen for Nausea/Vomitting: Yes Code Status: 01/04/19 16:14 Resuscitation Status: Active [RES] Routine Comment: Resuscitation Status: Full Code 01/12/19 11:46 DNR [Resuscitation Status: Active] [RES] Routine Comment: Resuscitation Status: DNR-Comfort Care - Labs CBC & Chem 7: 01/12/19 01:20 01/12/19 10:50 Labs: Laboratory Results - last 24 hr 01/11/19 01/11/19 01/11/19 01:19 05:54 12:26 WBC RBC Hgb Hct MCV MCH MCHC RDW Plt Count MPV Immature Gran % Seg Neutrophils % Lymphocytes % Monocytes % Eosinophils % Basophils % Neutrophils # Lymphocytes # Monocytes # Eosinophils # Basophils # Nucleated RBCs/100 WBC Sodium Potassium Chloride Carbon Dioxide BUN Creatinine Est GFR ( Amer) Est GFR (Non-Af Amer) BUN/Creatinine Ratio Glucose POC Glucose 149 H 205 H 220 H Calculated Osmolality Calcium 01/11/19 01/11/19 01/11/19 14:46 16:45 17:16 WBC RBC Hgb Hct MCV MCH MCHC RDW Plt Count MPV Immature Gran % Seg Neutrophils % Lymphocytes % Monocytes % Eosinophils % Basophils % Neutrophils # Lymphocytes # Monocytes # Eosinophils # Basophils # Nucleated RBCs/100 WBC Sodium 148 H 147 H Potassium Chloride Carbon Dioxide BUN Creatinine Est GFR ( Amer) Est GFR (Non-Af Amer) BUN/Creatinine Ratio Glucose POC Glucose 145 H Calculated Osmolality Calcium 01/11/19 01/12/19 01/12/19 21:05 01:20 01:20 WBC 7.0 RBC 2.83 L Hgb 8.5 L Hct 28.0 L MCV 98.9 MCH 30.0 MCHC 30.4 L RDW 16.9 H Plt Count 169 MPV 10.4 Immature Gran % 0.4 Seg Neutrophils % 65.9 Lymphocytes % 18.2 Monocytes % 12.9 Eosinophils % 2.3 Basophils % 0.3 Neutrophils # 4.6 Lymphocytes # 1.3 Monocytes # 0.9 Eosinophils # 0.2 Basophils # 0.0 Nucleated RBCs/100 WBC 0.3 H Sodium 147 H 147 H Potassium 3.7 Chloride 117 H Carbon Dioxide 26 BUN 21 Creatinine 1.29 H Est GFR ( Amer) 49 L Est GFR (Non-Af Amer) 40 L BUN/Creatinine Ratio 16 Glucose 200 H POC Glucose Calculated Osmolality 313 H Calcium 8.1 L 01/12/19 01/12/19 05:05 10:50 WBC RBC Hgb Hct MCV MCH MCHC RDW Plt Count MPV Immature Gran % Seg Neutrophils % Lymphocytes % Monocytes % Eosinophils % Basophils % Neutrophils # Lymphocytes # Monocytes # Eosinophils # Basophils # Nucleated RBCs/100 WBC Sodium 147 H 146 H Potassium Chloride Carbon Dioxide BUN Creatinine Est GFR ( Amer) Est GFR (Non-Af Amer) BUN/Creatinine Ratio Glucose POC Glucose Calculated Osmolality Calcium - ABG Interpretation ABG results: PT/INR, D-dimer PT 14.5 Seconds (9.4-12.1) H 01/04/19 13:53 Palliative Scale - Palliative Performance Scale How ambulatory is this patient?: Totally bed bound What is patient's level of activity and evidence of disease?: Unable to do most activity, Extensive disease How much self-care assistance does patient require?: Total care How much oral intake does the patient have?: Minimal to sips What is this patient's level of consciousness?: Full or drowsy with or without confusion Palliative Performance Score: 30 % Consult Discharge Plan - Plan Referrals: Olvin Gaming DPM [Partnered Physician] -
--- NOTE | 2019-01-12 11:50 | Nephrology Progress Note ---
Date of Encounter: 01/12/19 Time of Encounter: 13:35 - Assessment and Plan (1) Hypernatremia Current Visit: Yes Status: Acute Trending better, and so at this point now that she has improved hypernatremia, her altered mental status is most likely unrelated to this condition. I explained this to the patient's family yesterday. I see that the patient is now pursuing palliative care, so I will sign off at this point. Thank you for having consulted the [facility]. Please feel free to call or page me with any nephrology questions. (2) Altered mental status Current Visit: Yes Status: Acute Multifactorial, and unlikely to be related to the hypernatremia, which has started to dramatically improve. Qualifiers: Altered mental status type: unspecified Qualified Code(s): R41.82 - Altered mental status, unspecified (3) CKD (chronic kidney disease) stage 3, GFR 30-59 ml/min Current Visit: Yes Status: Chronic Subjective Principal diagnosis: Hypernatremia Interval history: Patient seen and examined. No family at bedside, but the sitter was present. The hospitalist updated me the patient is pursuing comfort care. The patient was unable to provide any subjective history due to altered mental status. Objective - Vital Signs Vital signs: Vital Signs Temp Pulse Resp BP Pulse Ox 01/12/19 08:20 98.4 F 72 17 144/82 96 01/12/19 05:06 98.6 F 73 16 131/79 90 01/12/19 03:43 98.1 F 106 15 139/79 97 01/11/19 21:59 72 18 143/79 91 01/11/19 14:38 97.5 F L 70 19 129/75 90 Intake and Output 01/11/19 01/12/19 01/12/19 23:59 07:59 15:59 Intake Total 600 / 1850 100 / 100 Balance 600 / 1850 100 / 100 Intake: IV Fluids 600 / 1750 100 / 100 Sodium Bicarbonate 50 MEQ In 450 / 450 Dextrose 5% 1,000 ML @ 80 mls/ hr IVC .[id number] [facility] Rx#: [id number] Coly-Mycin M PARENTERAL 150 MG 50 / 50 In 0.9 % Sodium Chloride 50 ML @ 100 mls/hr IVPB Q24H [facility] Rx#: [id number] Doxycycline 100 MG In 0.9 % 100 / 200 100 / 100 Sodium Chloride (Mini-Bag +) 100 ML @ 100 mls/hr IVPB Q12HR [facility] Rx#:[id number] Oral 0 / 100 0 / 0 Other: Meal Dinner Percent of Meal Consumed 5% 5% Stool Size Smear Copious Stool Consistency soft liquid Stool Color Brown Brown # Voids 0 # Urine Diapers 0 # Bowel Movement Diapers 1 1 Weight 56.5 kg Blood Glucose* 145 177 Patient Weight 01/12/19 23:59 Weight 56.5 kg - General Appearance General appearance: Present: appears started age, fatigue, frail EENT: Present: mucous membranes dry Cardiology: Present: no edema Neurologic: Present: confused, disoriented - Lab 01/12/19 01:20 01/12/19 15:00 Most recent lab results 01/12/19 01:20 Calcium 8.1 L Consult Discharge Plan - Plan Referrals: Olvin Gaming DPM [Partnered Physician] -
[2019-01-12] MEDS: D5% in Water 1,000 ML IVC SCH (12:52)
[2019-01-12] MEDS: Lidocaine 4% CREAM (LMX) 5 GM TP SCH (14:59)
[2019-01-12] MEDS: Colistin (Colistimethate) 150 MG in 0.9 % Sodium Chloride 50 ML IVPB SCH (16:11)
[2019-01-13] MEDS: Insulin LISPRO 300 UNITS/3 ML VIAL SQ SCH ×4 (00:37→17:06)
[2019-01-13] MEDS: Haloperidol Lactate 5 MG/ML VIAL IVP PRN (02:00)
[2019-01-13] MEDS: OXYCODONE Oral CONC 10 MG/0.5 ML ORAL.SYG SL PRN ×3 (03:07→16:32)
[2019-01-13] MEDS: D5% in Water 1,000 ML IVC SCH ×4 (03:10→21:38)
[2019-01-13 04:01] LABS: Basophils # 0.1 K/mcL (0.0-0.2); Basophils % 0.5 %; Eosinophils # 0.4 K/mcL (0.0-0.6); Eosinophils % 3.2 %; Hematocrit 32.7 % (35.3-44.9); Hemoglobin 9.7 g/dL (11.5-15.4); Immature Granulocytes % 0.5 % (0-4); Lymphocytes # 2.2 K/mcL (0.6-4.6); Lymphocytes % 19.7 %; Mean Corpuscular HGB Conc 29.7 g/dL (31.6-35.5); Mean Corpuscular Hemoglobin 29.5 pg (28.0-33.3); Mean Corpuscular Volume 99.4 fL (83.0-100.0); Monocytes # 1.6 K/mcL (0.0-1.3); Monocytes % 14.7 %; Neutrophils # 6.8 K/mcL (1.6-8.9); Platelet Count 194 K/mcL (140-400); Red Blood Count 3.29 M/mcL (3.82-4.97); Red Cell Distribution Width 16.9 % (11.5-14.5); Segmented Neutrophils % 61.4 %
[2019-01-13 04:22] LABS: Calcium 8.8 mg/dL (8.6-10.3); Potassium 3.8 mEq/L (3.5-5.1)
[2019-01-13] MEDS: *HR* Enoxaparin 30 MG/0.3 ML SYRINGE SQ SCH (07:15)
[2019-01-13] MEDS: Doxycycline 100 MG in 0.9 % Sodium Chloride Mini Bag 100 ML IVPB SCH ×2 (07:15→17:03)
[2019-01-13] MEDS: Aspirin Enteric Coated 81 MG Tablet PO SCH (07:39)
[2019-01-13] MEDS: Diltiazem CD (24hr) 180 MG CAPSULE PO SCH (07:39)
[2019-01-13] MEDS: cloNIDine HCl 0.1 MG TABLET PO SCH ×3 (07:39→21:27)
--- NOTE | 2019-01-13 08:09 | Internal Med Progress Note ---
<Karin Mejia - Last Filed: 01/13/19 12:26> Hospitalist Progress Note - Encounter Date of Encounter: 01/13/19 - Exam Vitals: Temp Pulse Resp BP Pulse Ox 97.1 F L 72 14 147/86 94 01/13/19 04:00 01/13/19 07:00 01/13/19 07:00 01/13/19 07:00 01/13/19 04:00 - Time Spent with Patient Total time spent is greater than 50% in coordination of care (as documented) at patient's floor/unit and/or counseling patient: Internal Medicine: Result - Labs CBC & Chem 7: 01/13/19 03:50 01/13/19 03:50 Labs: Short CBC 01/13/19 Range/Units 03:50 WBC 11.1 D (4.3-11.1) K/mcL Hgb 9.7 L (11.5-15.4) g/dL Hct 32.7 L (35.3-44.9) % Plt Count 194 (140-400) K/mcL Neutrophils # 6.8 (1.6-8.9) K/mcL BMP 01/12/19 01/13/19 15:00 03:50 Sodium 143 142 Potassium 3.8 Chloride 110 H Carbon Dioxide 22 L BUN 16 Creatinine 1.23 H Glucose 111 H Calcium 8.8 - ABG Interpretation ABG results: PT/INR, D-dimer PT 14.5 Seconds (9.4-12.1) H 01/04/19 13:53 Consult Discharge Plan - Plan Referrals: Olvin Gaming DPJoce [Partnered Physician] - - Attending Attestation I examined this patient and my medical decision-making was reviewed with the Resident Physician Dr Hernandez. I agree with the documented findings, disposition and treatment plan as described except to the extent set forth below. Ms Hitchcock is admitted with lethargy in the setting of stage IV colon cancer, UTI, leg infection, hypernatremia. She is transitioning to hospice care sitter at bedside, no family present. asleep, awakes to name. non verbal. does not answer questions or follow commands. gen- asleep,a wakes to name, alert, appears stated age cv- reg rate and reg rhythm, no pitting le edema lungs- ctabl, no wheezing, rhonchi or crackles, normal resp effort on room air abd- soft, no apparent tenderness, no guard or grimace skin- bl le dressings c/d/i neuro- awakes to name, alert, CN grossly intact no focal deficit appreciated Encephalopathy most likely multifactorial infectious + metabolic with hypernatremia, suspecting metastatic cancer component now that other issues are improving and mentation is not Most recent MRI rain last month was without brain mets -treatments as below -cont sitter -multidisciplinary meeting 01/13 and pt daughters have decided to change code status to DNR CC and will be taking her home on hospice in the upcoming days -wish to cont ivf and abx while awaiting transition to hospice Klebsiella UTI BL leg wounds, R knee ulcer + MRSA -appreciate ID recs, cont colistin + doxy Afib,currently NSR -CCB, prn BB -AC is being held this admission due to fall risk, family aware and agrees, lovenox for vte ppx Hypernatremia-stable 2/2 hypovolemia/ lack of oral intake, improved -nephro consulted, IVFs while here per family request HTN- prn iv antihypertensive + oral meds, cont to monitor further diagnoses and plan as noted by resident dispo will be to home hospice monday <Silvestre Hernandez - Last Filed: 01/13/19 15:38> Hospitalist Progress Note - Encounter Date of Encounter: 01/13/19 Time of Encounter: 10:02 - Subjective Interval History: Patient was seen and examined at bedside this morning. Patient is notably altered at baseline and unable to participate in history. No family is present at bedside. No acute events overnight. Per ENT PHYSICIAN who is at bedside, patient has been sleeping soundly all morning however did not eat any of her breakfast or dinner last evening. - Exam Vitals: Temp Pulse Resp BP Pulse Ox 97.1 F L 85 18 142/79 94 01/13/19 04:00 01/13/19 04:00 01/13/19 04:00 01/13/19 04:00 01/13/19 04:00 Exam: Gen.: Vitals noted. No acute distress. Patient is sleeping soundly upon when I enter the room, she does stir and makes eye contact with verbal stimuli. She does answer some questions with yes or no., resting comfortably in bed. HEENT: EOMI, oropharynx clear, Normocephalic, atraumatic, dry mucous membranes Cardiac: RRR, no murmur, +S1/S2, No BLE edema Pulmonary: CTA bilaterally, no wheezes, rales or rhonchi, equal chest expansion, unlabored breathing Abdomen: soft, nontender, BS noted, no guarding, no palpable HSM Skin: warm and dry, no visible lesions. MSK: Not assessed due to patient cooperation Neuro: Alert and oriented 0, moves extremities Psych: Unable to appreciate - Assessment and Plan (1) Altered mental status Current Visit: Yes Status: Acute Assessment and Plan: Multifactorial-infection, metabolic, possible metastatic Continues to be lethargic, agitated, delirious Brain MRI 12/14/18-no acute intracranial abnormality Head CT 01/04/19-no acute intracranial abnormality, diffuse atrophic changes with findings suggesting chronic microvascular ischemia - Etiologies include UTI growing Klebsiella, wound cultures growing green resistant pseudomonas and MRSA - Hypernatremia of 142 most recently which is likely related to no or minimal oral intake - Suspect that this is more likely related to progression of chronic disease in the setting of known stage IV cancer - Despite multiple days of antibiotics and periods of improved electrolyte numbers, patient continues to be disoriented and lethargic/agitated at times. To me, this points to a more accurate picture of progression of disease. Palliative care has been consult, appreciate recommendations. - Oncology is also been consulted and recommends hospice care - ID is on board for antibiotic recommendations, currently on doxycycline, colistin Plan - Agitation with when necessary Haldol per palliative care - Patient to be discharged to hospice care starting Monday - We will continue to treat underlying conditions as able to as below - Continue sitter (2) Metabolic encephalopathy Current Visit: Yes Status: Suspected Assessment and Plan: As above (3) Hypernatremia Current Visit: Yes Status: Acute Assessment and Plan: - Sodium of 142 this morning - Stable from yesterday at 146 - Etiology is likely related to minimal oral intake - Nephrology was consulted, started on D5W with minimal improvement - Patient continues to refuse food or drink Plan - Palliative care consult that and patient will go with hospice - We will continue D5W and defer any changes to nephrology - We will decrease sodium checks (4) Anemia Current Visit: Yes Status: Chronic Assessment and Plan: - Hemoglobin of 9.7 this morning - Stable, baseline appears to be 9-10 - No signs of bleeding, will continue monitor (5) Multiple malignancies Current Visit: Yes Status: Chronic Assessment and Plan: - Patient is a very significant history of cancer including colon cancer with metastasis to the liver - Previous metastasis to the kidney status post nephrectomy - Skin cancer of the nose status post resection - Patient is reportedly stage IV in her colon cancer and does follow with [facility] - [facility] is currently recommending hospice care, family meeting today Plan - After discussion with palliative care, patient's family is electing to go to hospice care starting Monday - They still do desire antibiotics and supportive care until that time - Continue management as elsewhere, supportive care, pain control, anxiety control - CODE STATUS changed to DNR comfort care (6) CKD (chronic kidney disease) stage 3, GFR 30-59 ml/min Current Visit: Yes Status: Chronic Assessment and Plan: At baseline Possible mild elevation in creatinine today which is likely related to patient not eating or drinking Has been receiving fluids for hypernatremia as above Continue to monitor (7) Atrial fibrillation Current Visit: Yes Status: Chronic Assessment and Plan: Rate control with carvedilol, diltiazem Appears to become tachycardic with agitation starting in the afternoons with suspected ing Added diltiazem 60 mg one time yesterday with good control of blood pressure and heart rate Heart rate currently well controlled, will consider increase if blood pressure should increase again (8) UTI (urinary tract infection) Current Visit: Yes Status: Acute Assessment and Plan: As above Currently growing Klebsiella oxytoca ID is following, currently on doxycycline and colistin (9) Skin ulcer of left lower leg Current Visit: Yes Status: Acute Assessment and Plan: Per infectious disease Growing green resistant pseudomonas and MRSA (10) Skin ulcer of right knee Current Visit: Yes Status: Acute Assessment and Plan: As above Growing MRSA (11) Coronary artery disease Current Visit: Yes Status: Chronic Assessment and Plan: - Troponin 0.04 which is trended and adynamic on admission - Patient unable to vocalize any chest pain complaints - EKG obtained that admission and shows no signs of ischemia - We will continue home medications- aspirin, losartan (12) Hypertension Current Visit: Yes Status: Chronic Assessment and Plan: Better control today 147/86 Currently on home Cardizem with when necessary metoprolol (13) Status post nephrectomy Current Visit: Yes Status: Chronic Assessment and Plan: - Secondary to malignancy with metastatic spread to kidney Resultant stage III chronic kidney disease (14) DVT prophylaxis Current Visit: Yes Status: Acute Assessment and Plan: lovenox - Time Spent with Patient Total time spent is greater than 50% in coordination of care (as documented) at patient's floor/unit and/or counseling patient: Internal Medicine: Result - Labs CBC & Chem 7: 01/13/19 03:50 01/13/19 03:50 Labs: Short CBC 01/13/19 Range/Units 03:50 WBC 11.1 D (4.3-11.1) K/mcL Hgb 9.7 L (11.5-15.4) g/dL Hct 32.7 L (35.3-44.9) % Plt Count 194 (140-400) K/mcL Neutrophils # 6.8 (1.6-8.9) K/mcL BMP 01/12/19 01/12/19 01/13/19 10:50 15:00 03:50 Sodium 146 H 143 142 Potassium 3.8 Chloride 110 H Carbon Dioxide 22 L BUN 16 Creatinine 1.23 H Glucose 111 H Calcium 8.8 - ABG Interpretation ABG results: PT/INR, D-dimer PT 14.5 Seconds (9.4-12.1) H 01/04/19 13:53 <Silvestre Hernandez - Last Filed: 01/13/19 15:38> (1) Altered mental status Qualifiers: Altered mental status type: somnolence Qualified Code(s): R40.0 - Somnolence (4) Anemia Qualifiers: Anemia type: other cause Other causes of anemia: acute posthemorrhagic Qualified Code(s): D62 - Acute posthemorrhagic anemia (7) Atrial fibrillation Qualifiers: Atrial fibrillation type: paroxysmal Qualified Code(s): I48.0 - Paroxysmal atrial fibrillation (8) UTI (urinary tract infection) Qualifiers: Urinary tract infection type: site unspecified Qualified Code(s): N39.0 - Urinary tract infection, site not specified (9) Skin ulcer of left lower leg Qualifiers: Non-pressure ulcer stage: limited to breakdown of skin Qualified Code(s): L97.921 - Non-pressure chronic ulcer of unspecified part of left lower leg limited to breakdown of skin (10) Skin ulcer of right knee Qualifiers: Non-pressure ulcer stage: limited to breakdown of skin Qualified Code(s): L97.811 - Non-pressure chronic ulcer of other part of right lower leg limited to breakdown of skin (11) Coronary artery disease Qualifiers: Coronary Disease-Associated Artery/Lesion type: bypass graft [place] vs. transplanted heart: [place] heart Associated angina: without angina Qualified Code(s): I25.810 - Atherosclerosis of coronary artery bypass graft(s) without angina pectoris (12) Hypertension Qualifiers: Hypertension type: essential hypertension
--- NOTE | 2019-01-13 09:59 | Palliative Progress Note ---
Date of Encounter: 01/13/19 Time of Encounter: 09:30 - Assessment and plan (1) Colon cancer metastasized to liver Current Visit: No Status: Chronic Assessment and plan: No further cancer treatment desired. (2) Palliative care encounter Current Visit: Yes Status: Acute (3) Goals of care, counseling/discussion Current Visit: No Status: Acute Assessment and plan: Patient discharging home with [facility] hospice on Monday. Dr. Hassan in agreement of discharge plan. (4) Altered mental status Current Visit: No Status: Acute Assessment and plan: Patient remains altered at this time. Qualifiers: Altered mental status type: somnolence Qualified Code(s): R40.0 - Somnolence (5) Agitation Current Visit: No Status: Acute Assessment and plan: Patient continues to have intermittent periods of agitation resulting in pulling at IV lines and removing dressings. Patient has received 4 doses Haldol, 1 dose Ativan, and 4 doses of pain medication in the last 24 hours. Resting quietly on arrival. Changed IV Haldol to SL Haldol dosing. (6) Generalized pain Current Visit: No Status: Acute Assessment and plan: Patient has Oxycodone SL for pain control, continue as needed. Has utilized 4 doses in the last 24 hours. Appears more comfortable today. - Time Spent With Patient Total time spent is greater than 50% in coordination of care (as documented) at patient's floor/unit and/or counseling patient: - Subjective Interval history: Patient resting in bed with eyes closed upon arrival for assessment. Arouses with tactile stimulation. No family present at bedside. Patient's 1:1 sitter present. Patient does not respond to inquiry of pain, anxiety, shortness of breath. Checked in with patient's primary RN, patient has been calmer today and even aroused enough to request chocolate pudding. RN also reports Haldol IV not lasting long enough and patient re-agitates post dosing. - Constitutional Vitals: Abnormal lab results WBC 12.3 K/mcL (4.3-11.1) H 01/06/19 00:25 RBC 3.29 M/mcL (3.82-4.97) L 01/13/19 03:50 Hgb 9.7 g/dL (11.5-15.4) L 01/13/19 03:50 Hct 32.7 % (35.3-44.9) L 01/13/19 03:50 MCV 101.7 fL (83.0-100.0) H 01/06/19 00:25 MCHC 29.7 g/dL (31.6-35.5) L 01/13/19 03:50 RDW 16.9 % (11.5-14.5) H 01/13/19 03:50 9.8 K/mcL (1.6-8.9) H 01/05/19 05:34 1.6 K/mcL (0.0-1.3) H 01/13/19 03:50 Nucleated RBCs/100 WBC 0.3 /100 WBC (0) H 01/12/19 01:20 PT 14.5 Seconds (9.4-12.1) H 01/04/19 13:53 Sodium 146 mEq/L (136-145) H 01/12/19 10:50 Chloride 110 mEq/L (98-107) H 01/13/19 03:50 Carbon Dioxide 22 mEq/L (23-29) L 01/13/19 03:50 BUN 27 mg/dL (8-23) H 01/10/19 05:32 1.23 mg/dL (0.60-1.20) H 01/13/19 03:50 Est GFR ( Amer) 52 (> 60) L 01/13/19 03:50 Est GFR (Non-Af Amer) 43 (> 60) L 01/13/19 03:50 30 (6-26) H 01/07/19 04:33 Glucose 111 mg/dL (70-105) H 01/13/19 03:50 POC Glucose 172 mg/dL (70-99) H 01/13/19 00:31 6.8 % (-5.6) H 01/05/19 09:16 313 (280-300) H 01/12/19 01:20 Calcium 8.1 mg/dL (8.6-10.3) L 01/12/19 01:20 142 Units/L (34-104) H 01/10/19 05:32 21 Units/L (30-223) L 01/04/19 13:53 0.04 ng/mL (< 0.04) H* 01/04/19 19:40 2.8 g/dL (3.5-5.7) L 01/10/19 05:32 3.7 g/dL (2.4-3.5) H 01/10/19 05:32 0.8 (1.1-2.2) L 01/10/19 05:32 TSH 0.127 mcIU/mL (0.340-5.600) L 01/04/19 13:53 Turbid (Clear) A 01/04/19 13:45 Ur Leukocyte Esterase Large (Negative) H 01/04/19 13:45 5-15 per hpf (0-3) H 01/04/19 13:45 TNTC per hpf (0-3) H 01/04/19 13:45 Ur Squamous Epith Cells Many per lpf (None-Few) H 01/04/19 13:45 Many per hpf (None-Few) H 01/04/19 13:45 Ur Culture Indicated? YES (NO) A 01/04/19 13:45 U Benzodiazepines Scrn Positive ng/mL (Jxnmmm=804) H 01/04/19 13:45 General appearance: Present: no acute distress - Head Head exam: Present: atraumatic, normal inspection - Eye Eye exam: Present: normal appearance, PERRL, conjuntiva pink. Absent: periorbital swelling, periorbital tenderness - ENT ENT exam: Present: mucous membranes dry, normal external ear exam - Neck Neck exam: Present: normal inspection - Respiratory Respiratory exam: Present: CTAB - Cardiovascular Cardiovascular exam: Present: +S1, +S2 - GI/Abdominal GI/Abdominal exam: Present: normal bowel sounds, soft. Absent: tenderness - Rectal Rectal exam: Present: deferred - Extremities Exam Extremities exam: Present: normal inspection - Back Exam Back exam: Present: normal inspection - Neurological Exam Neurological exam: Present: alert, altered - Psychiatric Psychiatric exam: Present: flat affect - Skin Skin exam: Present: dry, pallor, warm. Absent: intact Palliative Quality Palliative Quality: Screen for Code Status: Yes, Screen for Goals of Care: Yes, Screen for Pain: Yes, If Pain Regimen Started, Initiate Bowel Regimen: Yes, Scr een for Nausea/Vomitting: Yes Code Status: 01/04/19 16:14 Resuscitation Status: Active [RES] Routine Comment: Resuscitation Status: Full Code 01/12/19 11:46 DNR [Resuscitation Status: Active] [RES] Routine Comment: Resuscitation Status: DNR-Comfort Care - Labs CBC & Chem 7: 01/13/19 03:50 01/13/19 03:50 Labs: Laboratory Results - last 24 hr 01/12/19 01/12/19 01/12/19 00:19 05:14 10:50 WBC RBC Hgb Hct MCV MCH MCHC RDW Plt Count MPV Immature Gran % Seg Neutrophils % Lymphocytes % Monocytes % Eosinophils % Basophils % Neutrophils # Lymphocytes # Monocytes # Eosinophils # Basophils # Sodium 146 H Potassium Chloride Carbon Dioxide BUN Creatinine Est GFR ( Amer) Est GFR (Non-Af Amer) BUN/Creatinine Ratio Glucose POC Glucose 198 H 177 H Calculated Osmolality Calcium 01/12/19 01/12/19 01/12/19 12:47 15:00 17:44 WBC RBC Hgb Hct MCV MCH MCHC RDW Plt Count MPV Immature Gran % Seg Neutrophils % Lymphocytes % Monocytes % Eosinophils % Basophils % Neutrophils # Lymphocytes # Monocytes # Eosinophils # Basophils # Sodium 143 Potassium Chloride Carbon Dioxide BUN Creatinine Est GFR ( Amer) Est GFR (Non-Af Amer) BUN/Creatinine Ratio Glucose POC Glucose 149 H 144 H Calculated Osmolality Calcium 01/13/19 01/13/19 01/13/19 00:31 03:50 03:50 WBC 11.1 D RBC 3.29 L Hgb 9.7 L Hct 32.7 L MCV 99.4 MCH 29.5 MCHC 29.7 L RDW 16.9 H Plt Count 194 MPV 11.0 Immature Gran % 0.5 Seg Neutrophils % 61.4 Lymphocytes % 19.7 Monocytes % 14.7 Eosinophils % 3.2 Basophils % 0.5 Neutrophils # 6.8 Lymphocytes # 2.2 Monocytes # 1.6 H Eosinophils # 0.4 Basophils # 0.1 Sodium 142 Potassium 3.8 Chloride 110 H Carbon Dioxide 22 L BUN 16 Creatinine 1.23 H Est GFR ( Amer) 52 L Est GFR (Non-Af Amer) 43 L BUN/Creatinine Ratio 13 Glucose 111 H POC Glucose 172 H Calculated Osmolality 296 Calcium 8.8 - ABG Interpretation ABG results: PT/INR, D-dimer PT 14.5 Seconds (9.4-12.1) H 01/04/19 13:53 Palliative Scale - Palliative Performance Scale How ambulatory is this patient?: Totally bed bound What is patient's level of activity and evidence of disease?: Unable to do most activity, Extensive disease How much self-care assistance does patient require?: Total care How much oral intake does the patient have?: Minimal to sips What is this patient's level of consciousness?: Full or drowsy with or without confusion Palliative Performance Score: 30 % Consult Discharge Plan - Plan Referrals: Olvin Gaming DPM [Partnered Physician] -
[2019-01-13] MEDS: Lidocaine 4% CREAM (LMX) 5 GM TP SCH (16:24)
[2019-01-13] MEDS: Colistin (Colistimethate) 150 MG in 0.9 % Sodium Chloride 50 ML IVPB SCH (16:26)
[2019-01-14] MEDS: Insulin LISPRO 300 UNITS/3 ML VIAL SQ SCH ×4 (01:08→18:06)
[2019-01-14] MEDS: Haloperidol Oral Conc 10 MG/5 ML UDC PO PRN (03:27)
[2019-01-14] MEDS: Doxycycline 100 MG in 0.9 % Sodium Chloride Mini Bag 100 ML IVPB SCH ×2 (06:35→18:01)
[2019-01-14] MEDS: *HR* Enoxaparin 30 MG/0.3 ML SYRINGE SQ SCH (06:37)
[2019-01-14] MEDS: cloNIDine HCl 0.1 MG TABLET PO SCH ×3 (10:04→20:05)
[2019-01-14] MEDS: Aspirin Enteric Coated 81 MG Tablet PO SCH (10:05)
[2019-01-14] MEDS: Diltiazem CD (24hr) 180 MG CAPSULE PO SCH (10:05)
--- NOTE | 2019-01-14 10:22 | Internal Med Progress Note ---
<Karin Mejia - Last Filed: 01/14/19 12:53> Hospitalist Progress Note - Encounter Date of Encounter: 01/14/19 - Exam Vitals: Temp Pulse Resp BP Pulse Ox 99.9 F H 121 20 170/99 98 01/14/19 08:27 01/14/19 08:27 01/14/19 08:27 01/14/19 08:27 01/14/19 10:14 - Time Spent with Patient Total time spent is greater than 50% in coordination of care (as documented) at patient's floor/unit and/or counseling patient: Internal Medicine: Result - Labs CBC & Chem 7: 01/13/19 03:50 01/13/19 03:50 - ABG Interpretation ABG results: PT/INR, D-dimer PT 14.5 Seconds (9.4-12.1) H 01/04/19 13:53 Consult Discharge Plan - Plan Referrals: Olvin Gaming DPM [Partnered Physician] - Prescriptions: LORazepam Oral Conc [Ativan Oral Conc] 1 mg PO Q6HR PRN 14 Days #30 mls PRN Reason: anxiety/restlessness Haloperidol Oral Conc [Haldol] 1 mg PO Q6H PRN 14 Days #30 mls PRN Reason: Agitation OXYCODONE Oral CONC [Oxycodone Oral Conc] 10 mg PO Q3H PRN 14 Days #30 oral.syg PRN Reason: cancer related pain - Attending Attestation I examined this patient and my medical decision-making was reviewed with the Resident Physician Dr Leon. I agree with the documented findings, disposition and treatment plan as described except to the extent set forth below. Ms Hitchcock is admitted with lethargy in the setting of stage IV colon cancer, UTI, leg infection, hypernatremia. She is transitioning to hospice care sitter at bedside, no family present. awake, restless, did not eat/drink with sitter for breakfast, opens eyes to name, non verbal. no further hpi / ros given mentation gen- asleep,a wakes to name, restless, appears stated age cv- reg rate and reg rhythm, normal s1s2 lungs- ctabl, normal resp effort on room air skin- bl le dressings c/d/i neuro- awakes to name, alert, moves all ext spontaneously, non verbal, does not follow commands Encephalopathy multifactorial infectious + metabolic with hypernatremia now resolved, suspecting metastatic cancer component now that other issues are resolved and mentation is not improved Most recent MRI rain last month was without brain mets -treatments as below -multidisciplinary meeting 01/13 and pt daughters have decided to change code status to DNR CC and will be taking her home on hospice tomorrow -wish to cont ivf and abx while awaiting transition to hospice Klebsiella UTI BL leg wounds, R knee ulcer + MRSA -appreciate ID recs, cont colistin + doxy until dc to hospice as above Afib,currently NSR -CCB, prn BB -AC is being held this admission due to fall risk, family aware and agrees, lovenox for vte ppx while inpt Hypernatremia, resolved/stable 2/2 hypovolemia/ lack of oral intake -nephro consulted, IVFs while here per family request HTN- prn iv antihypertensive + oral meds, cont to monitor further diagnoses and plan as noted by resident dispo will be to home hospice monday, cont of treatment until that time as family request to ensure she lives to make it home on hospice <OnursinansebastiánamySabina Jacquie - Last Filed: 01/14/19 15:47> Hospitalist Progress Note - Encounter Date of Encounter: 01/14/19 Time of Encounter: 10:00 - Subjective Interval History: Patient seen and examined at bedside today. She continues to have episodes of agitation. She has eaten a small amount of breakfast today. She continues to be lethargic, unable to answer questions and review of systems unobtainable. Family meeting with team has occurred and patient will be discharged with hospice tomorrow. - Exam Vitals: Temp Pulse Resp BP Pulse Ox 99.9 F H 121 20 170/99 98 01/14/19 08:27 01/14/19 08:27 01/14/19 08:27 01/14/19 08:27 01/14/19 10:14 Exam: Gen: Vitals noted. No acute distress. Lethargic, able to grasp my hand, unable to answer questions. HEENT: EOMI, oropharynx clear, Normocephalic, atraumatic, mucous membranes moist Cardiac: RRR, no murmur, +S1/S2, No BLE edema, radial as well as dorsal pedis pulses 2+ and symmetrical. Pulmonary: CTA bilaterally, no wheezes, rales or rhonchi, equal chest expansion, unlabored breathing Abdomen: soft, nontender, BS noted, no guarding, no palpable HSM Skin: warm and dry, no visible lesions. MSK: Able to move extremities, no joint swelling noted Neuro: Alert and oriented 0, moves extremities Psych: Unable to assess - Assessment and Plan (1) Altered mental status Current Visit: Yes Status: Acute Assessment and Plan: Continues to be lethargic Multifactorial- infection, metabolic, possible metastatic Brain MRI 12/14/18-no acute intracranial abnormality Head CT 01/04/19-no acute intracranial abnormality, diffuse atrophic changes with suggests the findings of chronic microvascular ischemia UTI-Klebsiella Wound cultures of lower extremity wounds-MRSA and green resistant pseudomonas Hypernatremia has resolved Patient mental status has not improved despite correction of electrolytes and treatment of infections Palliative as well as oncology recommends hospice care Family has changed CODE STATUS to DNR CC, agree with hospice tomorrow Continue antibiotics doxycycline, colistin until discharged tomorrow Per palliative care- haldol for agitation Continue sitter (2) Metabolic encephalopathy Current Visit: Yes Status: Suspected Assessment and Plan: Metabolic abnormalities resolved Continue management as above (3) Hypernatremia Current Visit: Yes Status: Resolved Assessment and Plan: Resolved Sodium currently 142 Suspect related to decreased by mouth intake Continue with D5W as needed (4) Urinary tract infection Current Visit: Yes Status: Acute Assessment and Plan: Urine culture positive for Klebsiella Continue antibiotic coverage doxycycline, colistin until discharge (5) Ulcer of leg, chronic, left Current Visit: Yes Status: Acute Assessment and Plan: Green resistant Pseudomonas and MRSA Continue colistin, doxycycline (6) Skin ulcer of right knee Current Visit: Yes Status: Acute Assessment and Plan: Culture positive for MRSA Continue colistin, doxycycline (7) CKD (chronic kidney disease) stage 3, GFR 30-59 ml/min Current Visit: Yes Status: Chronic Assessment and Plan: Continues to be at baseline Status post nephrectomy Continue to monitor (8) HTN (hypertension) Current Visit: Yes Status: Chronic Assessment and Plan: Continue Cardizem Metoprolol if needed (9) CHF (congestive heart failure) Current Visit: Yes Status: Chronic Assessment and Plan: History of CHF Currently not in exacerbation Continue to monitor fluid status (10) PAF (paroxysmal atrial fibrillation) Current Visit: No Status: Chronic Assessment and Plan: Rate control with carvedilol, diltiazem May need to increase rate control if needed Continue to monitor (11) Multiple malignancies Current Visit: Yes Status: Chronic Assessment and Plan: Colon cancer with metastasis to the liver Status post nephrectomy for metastasis to 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 Oncology recommended hospice care, family in agreement (12) DVT prophylaxis Current Visit: Yes Status: Acute Assessment and Plan: Prophylactic Lovenox - Time Spent with Patient Total time spent is greater than 50% in coordination of care (as documented) at patient's floor/unit and/or counseling patient: Internal Medicine: Result - Labs CBC & Chem 7: 01/13/19 03:50 01/13/19 03:50 - ABG Interpretation ABG results: PT/INR, D-dimer PT 14.5 Seconds (9.4-12.1) H 01/04/19 13:53 <Sabina Leon - Last Filed: 01/14/19 15:47> (1) Altered mental status Qualifiers: Altered mental status type: somnolence Qualified Code(s): R40.0 - Somnolence (4) Urinary tract infection Qualifiers: Urinary tract infection type: acute cystitis Hematuria presence: without hematuria Qualified Code(s): N30.00 - Acute cystitis without hematuria (5) Ulcer of leg, chronic, left Qualifiers: Non-pressure ulcer stage: with fat layer exposed Qualified Code(s): L97.922 - Non-pressure chronic ulcer of unspecified part of left lower leg with fat layer exposed (6) Skin ulcer of right knee Qualifiers: Non-pressure ulcer stage: limited to breakdown of skin Qualified Code(s): L97.811 - Non-pressure chronic ulcer of other part of right lower leg limited to breakdown of skin (8) HTN (hypertension) Qualifiers: Hypertension type: essential hypertension Qualified Code(s): I10 - Essential (primary) hypertension (9) CHF (congestive heart failure) Qualifiers: Heart failure type: unspecified Heart failure chronicity: unspecified Qualified Code(s): I50.9 - Heart failure, unspecified
[2019-01-14] MEDS ORDERED: OXYCODONE Oral CONC 10 MG/0.5 ML ORAL.SYG SL PRN (10:28)
--- NOTE | 2019-01-14 10:51 | Palliative Progress Note ---
Date of Encounter: 01/14/19 Time of Encounter: 10:00 - Assessment and plan (1) Cancer associated pain Current Visit: Yes Status: Acute Assessment and plan: She has only had 2 doses of Oxycodone 5mg over the past 24 hours. She was able to tell me she was in pain this am, although could not rate or elaborate where her pain was. She is grimacing, restless, and appears uncomfortable. Primary nurse who had patient yesterday stated that she was much better after her Oxycodone yesterday, but she is not receiving this consistently. Will schedule every 6 hours to ensure she at least gets 4 doses per day,, and allow every 3 hours if needed for breakthrough. (2) Restlessness and agitation Current Visit: Yes Status: Acute Assessment and plan: Her pain may be contributing to her restlessness and difficulty expressing herself. She does have Haloperidol PRN. Utilized x1 last 24 hours. Monitor. (3) Goals of care, counseling/discussion Current Visit: No Status: Acute Assessment and plan: [facility] liasion here to visit patient. She will be ordering hospital bed and reaching out to family. Chart copied and faxed to [facility]. Prescriptions for Haloperidol, Oxycodone, and Lorazepam completed and faxed to [facility] as well. These were placed in patient's discharge folder to be sent home with her in am. (4) CHF (congestive heart failure) Current Visit: Yes Status: Chronic (5) Acute kidney injury superimposed on chronic kidney disease Current Visit: No Status: Resolved (6) Colon cancer metastasized to liver Current Visit: No Status: Chronic (7) Palliative care encounter Current Visit: Yes Status: Acute - Time Spent With Patient Total time spent is greater than 50% in coordination of care (as documented) at patient's floor/unit and/or counseling patient: - Subjective Interval history: Patient awake and alert, restless and is sitting up in bed. She is alert and oriented to name only. Is able to tell me she is in pain, but cannot elaborate. Sitter at bedside, no family present. - Constitutional Vitals: Abnormal lab results WBC 12.3 K/mcL (4.3-11.1) H 01/06/19 00:25 RBC 3.29 M/mcL (3.82-4.97) L 01/13/19 03:50 Hgb 9.7 g/dL (11.5-15.4) L 01/13/19 03:50 Hct 32.7 % (35.3-44.9) L 01/13/19 03:50 MCV 101.7 fL (83.0-100.0) H 01/06/19 00:25 MCHC 29.7 g/dL (31.6-35.5) L 01/13/19 03:50 RDW 16.9 % (11.5-14.5) H 01/13/19 03:50 9.8 K/mcL (1.6-8.9) H 01/05/19 05:34 1.6 K/mcL (0.0-1.3) H 01/13/19 03:50 Nucleated RBCs/100 WBC 0.3 /100 WBC (0) H 01/12/19 01:20 PT 14.5 Seconds (9.4-12.1) H 01/04/19 13:53 Sodium 146 mEq/L (136-145) H 01/12/19 10:50 Chloride 110 mEq/L (98-107) H 01/13/19 03:50 Carbon Dioxide 22 mEq/L (23-29) L 01/13/19 03:50 BUN 27 mg/dL (8-23) H 01/10/19 05:32 1.23 mg/dL (0.60-1.20) H 01/13/19 03:50 Est GFR ( Amer) 52 (> 60) L 01/13/19 03:50 Est GFR (Non-Af Amer) 43 (> 60) L 01/13/19 03:50 30 (6-26) H 01/07/19 04:33 Glucose 111 mg/dL (70-105) H 01/13/19 03:50 POC Glucose 172 mg/dL (70-99) H 01/13/19 00:31 6.8 % (-5.6) H 01/05/19 09:16 313 (280-300) H 01/12/19 01:20 Calcium 8.1 mg/dL (8.6-10.3) L 01/12/19 01:20 142 Units/L (34-104) H 01/10/19 05:32 21 Units/L (30-223) L 01/04/19 13:53 0.04 ng/mL (< 0.04) H* 01/04/19 19:40 2.8 g/dL (3.5-5.7) L 01/10/19 05:32 3.7 g/dL (2.4-3.5) H 01/10/19 05:32 0.8 (1.1-2.2) L 01/10/19 05:32 TSH 0.127 mcIU/mL (0.340-5.600) L 01/04/19 13:53 Turbid (Clear) A 01/04/19 13:45 Ur Leukocyte Esterase Large (Negative) H 01/04/19 13:45 5-15 per hpf (0-3) H 01/04/19 13:45 TNTC per hpf (0-3) H 01/04/19 13:45 Ur Squamous Epith Cells Many per lpf (None-Few) H 01/04/19 13:45 Many per hpf (None-Few) H 01/04/19 13:45 Ur Culture Indicated? YES (NO) A 01/04/19 13:45 U Benzodiazepines Scrn Positive ng/mL (Yfmnuj=905) H 01/04/19 13:45 General appearance: Present: mild distress - Respiratory Respiratory exam: Present: decreased breath sounds, CTAB - Cardiovascular Cardiovascular exam: Present: +S1, +S2 - GI/Abdominal GI/Abdominal exam: Present: normal bowel sounds, soft - Extremities Exam Additional comments: Old abrasion to right knee wrapped with kerlix. - Neurological Exam Neurological exam: Present: alert Additional comments: Appears oriented to name only, restless. Will follow simple commands and answered a few "yes/no" questions appropriately. - Skin Skin exam: Present: dry, pallor, warm Palliative Quality Palliative Quality: Screen for Code Status: Yes, Screen for Goals of Care: Yes, Screen for Pain: Yes, If Pain Regimen Started, Initiate Bowel Regimen: Yes, Screen for Nausea/Vomitting: Yes Code Status: 01/04/19 16:14 Resuscitation Status: Active [RES] Routine Comment: Resuscitation Status: Full Code 01/12/19 11:46 DNR [Resuscitation Status: Active] [RES] Routine Comment: Resuscitation Status: DNR-Comfort Care - Labs CBC & Chem 7: 01/13/19 03:50 01/13/19 03:50 - ABG Interpretation ABG results: PT/INR, D-dimer PT 14.5 Seconds (9.4-12.1) H 01/04/19 13:53 Palliative Scale - Palliative Performance Scale How ambulatory is this patient?: Totally bed bound What is patient's level of activity and evidence of disease?: Unable to do most activity, Extensive disease How much self-care assistance does patient require?: Total care How much oral intake does the patient have?: Minimal to sips What is this patient's level of consciousness?: Full or drowsy with or without confusion Palliative Performance Score: 30 % Consult Discharge Plan - Plan Referrals: Olvin Gaming DPM [Partnered Physician] - Prescriptions: LORazepam Oral Conc [Ativan Oral Conc] 1 mg PO Q6HR PRN 14 Days #30 mls PRN Reason: anxiety/restlessness Haloperidol Oral Conc [Haldol] 1 mg PO Q6H PRN 14 Days #30 mls PRN Reason: Agitation OXYCODONE Oral CONC [Oxycodone Oral Conc] 10 mg PO Q3H PRN 14 Days #30 oral.syg PRN Reason: cancer related pain
[2019-01-14] MEDS: OXYCODONE Oral CONC 10 MG/0.5 ML ORAL.SYG SL SCH ×2 (12:05→18:03)
[2019-01-14] MEDS: Lidocaine 4% CREAM (LMX) 5 GM TP SCH (15:27)
[2019-01-14] MEDS: Colistin (Colistimethate) 150 MG in 0.9 % Sodium Chloride 50 ML IVPB SCH (16:31)
[2019-01-15] MEDS: OXYCODONE Oral CONC 10 MG/0.5 ML ORAL.SYG SL SCH ×3 (00:23→14:00)
[2019-01-15] MEDS: Insulin LISPRO 300 UNITS/3 ML VIAL SQ SCH ×3 (00:23→13:59)
[2019-01-15] MEDS: Haloperidol Oral Conc 10 MG/5 ML UDC PO PRN (04:02)
[2019-01-15] MEDS: Doxycycline 100 MG in 0.9 % Sodium Chloride Mini Bag 100 ML IVPB SCH (06:06)
[2019-01-15] MEDS: *HR* Enoxaparin 30 MG/0.3 ML SYRINGE SQ SCH (06:06)
[2019-01-15] MEDS: cloNIDine HCl 0.1 MG TABLET PO SCH (09:00)
[2019-01-15] MEDS: Diltiazem CD (24hr) 180 MG CAPSULE PO SCH (09:01)
[2019-01-15] MEDS: Aspirin Enteric Coated 81 MG Tablet PO SCH (09:01)
[2019-01-15 09:55] VITALS: BP 159/102
--- NOTE | 2019-01-15 10:20 | Discharge Summary ---
<Karin Mejia - Last Filed: 01/15/19 15:05> Date of Encounter: 01/15/19 - Discharge Diagnosis (1) Altered mental status Priority: Primary Status: Chronic Qualifiers: Altered mental status type: unspecified Qualified Code(s): R41.82 - Altered mental status, unspecified (2) UTI (urinary tract infection) Priority: Secondary Status: Acute Qualifiers: Urinary tract infection type: site unspecified Qualified Code(s): N39.0 - Urinary tract infection, site not specified (3) Atrial fibrillation Priority: Secondary Status: Chronic Qualifiers: Atrial fibrillation type: paroxysmal Qualified Code(s): I48.0 - Paroxysmal atrial fibrillation (4) HTN (hypertension) Priority: Secondary Status: Chronic Qualifiers: Hypertension type: essential hypertension Qualified Code(s): I10 - Essential (primary) hypertension (5) Multiple malignancies Priority: Secondary Status: Chronic (6) Hypernatremia Priority: Secondary Status: Resolved Hospital course: Ms. Hitchcock is a 73 year old female - Time Spent with Patient Total time spent providing and/or coordinating discharge services: Time spent: Greater than 30 minutes (45 min) - Discharge Medications Prescriptions: New LORazepam Oral Conc [Ativan Oral Conc] 1 mg PO Q6HR PRN 14 Days #30 mls PRN Reason: anxiety/restlessness Haloperidol Oral Conc [Haldol] 1 mg PO Q6H PRN 14 Days #30 mls PRN Reason: Agitation OXYCODONE Oral CONC [Oxycodone Oral Conc] 10 mg PO Q3H PRN 14 Days #30 oral.syg PRN Reason: cancer related pain Continued Hydralazine HCl 100 mg PO TID Albuterol Neb [Proventil Neb] 2.5 mg IH Q8H PRN PRN Reason: Shortness Of Breath Albuterol Sulfate [Proair Hfa] 2 puff IH Q6H PRN PRN Reason: Cough cloNIDine HCl [Clonidine HCl] 0.3 mg PO TID Fluticasone Propionate Nasal [Flonase] 1 spray NS DAILY Carvedilol [Coreg] 25 mg PO BID Gabapentin [Neurontin] 100 mg PO BID [place]-3/Dha/Epa/Fish Oil [Cvs Fish Oil 1,000 mg Softgel] 1 cap PO DAILY Diltiazem CD (24hr) [Cardizem CD] 180 mg PO DAILY cap.er.24h Aspirin [Adult Aspirin Regimen] 81 mg PO DAILY Lidocaine [Lc-4] 1 appl TP AD Losartan Potassium 100 mg PO DAILY Sucralfate [Carafate] 1 gm PO ACHS Discontinued Pravastatin Sodium [Pravachol] 80 mg PO HS Apixaban [Eliquis] 2.5 mg PO BID Insulin Degludec [Tresiba Flextouch U-200] 45 unit SQ HS Potassium Chloride 20 meq PO DAILY Furosemide [Lasix] 40 mg PO DAILY ALPRAZolam [Xanax 0.5 MG Tablet] 0.5 mg PO BID Dulaglutide [Trulicity] 0.75 mg SQ TH Ferrous Sulfate 325 mg PO DAILY Insulin LISPRO [HumaLOG] 5 units SQ TIDAC MDD + SLIDING SCALE ACHS Nitrofurantoin (BID) [Macrobid] 100 mg PO BID OxyCODONE/APAP 5/325 [Percocet 5/325 MG] 1 tab PO TID PRN PRN Reason: Pain Home Medications: Hydralazine HCl 100 mg PO TID 11/29/16 [History] Albuterol Neb [Proventil Neb] 2.5 mg IH Q8H PRN 08/29/18 [History] Albuterol Sulfate [Proair Hfa] 2 puff IH Q6H PRN 08/29/18 [History] Fluticasone Propionate Nasal [Flonase] 1 spray NS DAILY 11/09/18 [History] cloNIDine HCl [Clonidine HCl] 0.3 mg PO TID 11/09/18 [History] Carvedilol [Coreg] 25 mg PO BID 11/10/18 [History] Gabapentin [Neurontin] 100 mg PO BID 11/10/18 [History] [place]-3/Dha/Epa/Fish Oil [Cvs Fish Oil 1,000 mg Softgel] 1 cap PO DAILY 11/10/18 [History] Diltiazem CD (24hr) [Cardizem CD] 180 mg PO DAILY cap.er.24h 12/17/18 [Rx] Aspirin [Adult Aspirin Regimen] 81 mg PO DAILY 01/04/19 [History] Lidocaine [Lc-4] 1 appl TP AD 01/04/19 [History] Losartan Potassium 100 mg PO DAILY 01/04/19 [History] Sucralfate [Carafate] 1 gm PO ACHS 01/04/19 [History] Haloperidol Oral Conc [Haldol] 1 mg PO Q6H PRN 14 Days #30 mls 01/14/19 [Rx] LORazepam Oral Conc [Ativan Oral Conc] 1 mg PO Q6HR PRN 14 Days #30 mls 01/14/19 [Rx] OXYCODONE Oral CONC [Oxycodone Oral Conc] 10 mg PO Q3H PRN 14 Days #30 oral.syg 01/14/19 [Rx] Allergies/Adverse Reactions: Allergy/AdvReac Type Severity Reaction Status Date / Time Sulfa (Sulfonamide Allergy Severe Swelling Verified 11/30/18 08:51 Antibiotics) of Lip/Tongue/Throat Date of admission: 01/06/19 15:27 Primary care physician: PCP NONE Consults: 01/04/19 17:59 Consult to Wound Care [CONS] Routine Reason for Consult: left pak ulcer Call Completed: No 01/07/19 07:45 Consult to Invasive Line Access Team [CONS] Routine Reason for Consult: limited access Line Type: EPIV 01/07/19 08:07 Consult to Car Carder [CONS] Routine Reason for SW Consult: PATIENT FROM [facility] [place] 01/08/19 14:57 Consult to Infectious Diseases [CONS] Routine Consulting Provider: Infectious Disease Es Reason for Consult: Wound culture positive to resistant pseudomonas, MRSA Call Completed: No 01/10/19 13:03 Consult to Nephrology [CONS] Routine Consulting Provider: Kidney [facility]/JADA/JUVENCIO/SKYE Reason for Consult: Hypernatremia, s/p nephrectomy for mets from colon cancer Call Completed: Yes 01/11/19 14:10 Consult to Oncology Hematology [CONS] Routine Consulting Provider: Sindhu Mena Reason for Consult: Known stage IV colon cancer with mets, goals of care discussion Call Completed: Yes 01/11/19 14:17 Consult to Palliative Care [CONS] Routine Comment: Consulting Provider: Palliative Care [place] Reason for Consult: stage IV colon cancer with mets to liver. AMS Call Completed: Yes - Constitutional Vitals: Temp Pulse Resp BP Pulse Ox 97.3 F L 69 18 159/102 95 01/15/19 09:53 01/15/19 09:53 01/15/19 09:53 01/15/19 09:53 01/15/19 09:53 - Patient Status Disposition: Hospice - Home Condition: Serious - Discharge Instructions Follow Up With: Olvin Gaming DPM [Partnered Physician] - Forms: ED Satisfaction Letter - Diet and Activity Activity: increase activity as tolerated - Attending Attestation I examined this patient and my medical decision-making was reviewed with the Resident Physician Dr Leon. I agree with the documented findings, disposition and treatment plan as described except to the extent set forth below. Ms Hitchcock is admitted with lethargy in the setting of stage IV colon cancer, UTI, leg infection, hypernatremia. She is transitioning to hospice care at home today sitter at bedside, no family present.asleep, awakes to name, comfortable appearing, non verbal and follows no commands gen- asleep,a wakes to name, appears stated age cv- reg rate and reg rhythm, normal s1s2, no le edema lungs- ctabl, normal resp effort on room air skin- bl le dressings c/d/i neuro- awakes to name, alert, non verbal, does not follow commands Encephalopathy multifactorial infectious + metabolic with hypernatremia now resolved, suspecting metastatic cancer component now that other issues are resolved and mentation is not improved -treatments as below -multidisciplinary meeting 01/13 and pt daughters have decided to change code status to DNR CC and will be taking her home on hospice -wish to cont ivf and abx while awaiting transition to hospice -dc to home hospice today Klebsiella UTI BL leg wounds, R knee ulcer + MRSA -appreciate ID recs, was colistin + doxy until dc to hospice as above Afib,rate controlled to NSR throughout admit -CCB -AC was held this admission due to fall risk, family aware now dc'd on discharge to hospice Hypernatremia, stable 2/2 hypovolemia/ lack of oral intake -nephro consulted, IVFs while here per family request HTN- oral meds,fu with hospice further diagnoses and plan as noted by resident time spent on discharge 45 min <Sabina Leon - Last Filed: 01/15/19 19:51> - NOTES TO OUTPATIENT PROVIDER Notes to Outpatient Provider: Patient to be discharged to hospice. New medications include oxycodone, haldol, ativan. Anticoagulation has been discontinued secondary to falls with altered mental status. Date of Encounter: 01/15/19 Time of Encounter: 11:36 - Discharge Diagnosis (1) Altered mental status Priority: Primary Status: Acute Qualifiers: Altered mental status type: somnolence Qualified Code(s): R40.0 - Somnolence (2) Metabolic encephalopathy Priority: Secondary Status: Suspected (3) Ulcer of leg, chronic, left Priority: Secondary Status: Chronic Qualifiers: Non-pressure ulcer stage: with fat layer exposed Qualified Code(s): L97.922 - Non-pressure chronic ulcer of unspecified part of left lower leg with fat layer exposed (4) Skin ulcer of right knee Priority: Secondary Status: Chronic Qualifiers: Non-pressure ulcer stage: limited to breakdown of skin Qualified Code(s): L97.811 - Non-pressure chronic ulcer of other part of right lower leg limited to breakdown of skin (5) CKD (chronic kidney disease) stage 3, GFR 30-59 ml/min Priority: Secondary Status: Chronic (6) HTN (hypertension) Priority: Secondary Status: Chronic Qualifiers: Hypertension type: essential hypertension Qualified Code(s): I10 - Essential (primary) hypertension (7) CHF (congestive heart failure) Priority: Secondary Status: Chronic Qualifiers: Heart failure type: unspecified Heart failure chronicity: unspecified Qualified Code(s): I50.9 - Heart failure, unspecified (8) PAF (paroxysmal atrial fibrillation) Priority: Secondary Status: Chronic (9) Multiple malignancies Priority: Secondary Status: Chronic (10) DVT prophylaxis Priority: Secondary Status: Acute Hospital course: Ms. Hitchcock is a 73 year old female who presented from custodial facility with increased alteration of mental status. She had been admitted for pneumonia 3 weeks prior to this and on discharge was placed at [facility] where she had never fully returned to her baseline prior to the pneumonia. Per the family, in between admissions the patient became increasingly somnolent, no longer conversing, no longer ambulating. She has a medical history of colon adenocarcinoma with metastasis to liver, kidney and is status post nephrectomy of kidney. Also past history of atrial fibrillation, CHF, COPD, CAD, diabetes, hyperlipidemia, hypertension. Patient had had multiple falls over the past several weeks with a right knee ulcer, left calf ulcer as well as a left calf laceration. CT head showed no acute intracranial abnormality, chest x-ray showed stable bibasilar atelectasis with mild cardiomegaly, tibia fibula x-ray on the left showed no acute bony abnormality or osteomyelitis. Labs were significant for leukocytosis at 12.9, hemoglobin 9.7 suggestive of chronic anemia. Patient had acute kidney injury, creatinine 1.50 and BUN 46, she has baseline CTD stage III. She had negative troponins, TSH within normal limits, her calcitonin within normal limits, lactic acid within normal limits. A UA was positive for leukocyte esterase and bacteria. Blood cultures were taken which were no growth to date. Urine culture was positive for Klebsiella, wound cultures were positive for MRSA as well as green resistant Pseudomonas. Infectious disease was consulted. Patient was initially on doxycycline and ceftriaxone however upon recommendation of infectious disease, antibiotic coverage was changed to doxycycline and colistin. Over the course of admission, patient had increasing hypernatremia secondary to decreased by mouth intake. Nephrology was called and patient was treated with D5W. Patient had atrial fibrillation, she was previously on anticoagulation however secondary to her altered mental status and risk of falls, anticoagulation was discontinued, rate control with diltiazem continue. Over the course of admission, despite correcting electrolyte abnormalities and treating UTI, wound infections, patient did not regain baseline mental status. Oncology was consulted as patient would be missing her palliative chemotherapy during admission, the decision was made to discontinue chemotherapy, focus on comfort for the patient. Antibiotics were discontinued. Palliative was consulted and patient to be discharged to hospice with focus on comfort, prescriptions for Ativan, oxycodone, Haldol. The patient was discharged home with hospice today. Discharge discussed with: family, social work Time spent discussing smoking cessation with patient: more than 10 minutes - Time Spent with Patient Total time spent providing and/or coordinating discharge services: Time spent: Greater than 30 minutes Date of admission: 01/06/19 15:27 Primary care physician: PCP NONE Consults: 01/04/19 17:59 Consult to Wound Care [CONS] Routine Reason for Consult: left pak ulcer Call Completed: No 01/07/19 07:45 Consult to Invasive Line Access Team [CONS] Routine Reason for Consult: limited access Line Type: EPIV 01/07/19 08:07 Consult to Car Carder [CONS] Routine Reason for SW Consult: PATIENT FROM [facility] [place] 01/08/19 14:57 Consult to Infectious Diseases [CONS] Routine Consulting Provider: Infectious Disease Es Reason for Consult: Wound culture positive to resistant pseudomonas, MRSA Call Completed: No 01/10/19 13:03 Consult to Nephrology [CONS] Routine Consulting Provider: Kidney Es/JADA/JUVENCIO/SKYE Reason for Consult: Hypernatremia, s/p nephrectomy for mets from colon cancer Call Completed: Yes 01/11/19 14:10 Consult to Oncology Hematology [CONS] Routine Consulting Provider: Sindhu Mena Reason for Consult: Known stage IV colon cancer with mets, goals of care discussion Call Completed: Yes 01/11/19 14:17 Consult to Palliative Care [CONS] Routine Comment: Consulting Provider: Palliative Care [place] Reason for Consult: stage IV colon cancer with mets to liver. AMS Call Completed: Yes Discharging clinician: Sabina Leon Anticipated date of discharge: 01/15/19 - Constitutional Vitals: Temp Pulse Resp BP Pulse Ox 97.3 F L 69 18 159/102 95 01/15/19 09:53 01/15/19 09:53 01/15/19 09:53 01/15/19 09:53 01/15/19 09:53 Exam: Gen: Vitals noted. No acute distress. Lethargic, unable to answer questions. HEENT: EOMI, oropharynx clear, Normocephalic, atraumatic, mucous membranes moist Cardiac: RRR, no murmur, +S1/S2, No BLE edema, radial as well as dorsal pedis pulses 2+ and symmetrical. Pulmonary: CTA bilaterally, no wheezes, rales or rhonchi, equal chest expansion, unlabored breathing Abdomen: soft, nontender, BS noted, no guarding, no palpable HSM Skin: warm and dry, no visible lesions. MSK: Able to move extremities, no joint swelling noted Neuro: Alert and oriented 0, moves extremities Psych: Unable to assess - Patient Status Functional capacity at discharge: bed bound Overall status at discharge: patient is not back to baseline - Diet and Activity Diet: advance to your usual diet
--- NOTE | 2019-01-15 10:51 | Palliative Progress Note ---
Date of Encounter: 01/15/19 Time of Encounter: 10:00 - Assessment and plan (1) Cancer associated pain Current Visit: Yes Status: Acute Assessment and plan: Patient has rested better and been less agitated with the scheduled Oxycodone. Prescriptions for pain medication have been faxed to [facility] and scripts will go home with patient. (2) Restlessness and agitation Current Visit: Yes Status: Acute Assessment and plan: Has Lorazepam/Haldol PRN if needed. Utilized Haldol x1 last pm. Monitor (3) Goals of care, counseling/discussion Current Visit: No Status: Acute Assessment and plan: Spoke with Madisyn research coordinator for [facility] hospice. Patient can be discharged home today. [facility] SW will be setting up transport with ambulance they contract with for later this afternoon.. D/W Dr. Mejia, alteration manager Amina Galeas, and primary nurse Jean. (4) CHF (congestive heart failure) Current Visit: Yes Status: Chronic (5) Acute kidney injury superimposed on chronic kidney disease Current Visit: No Status: Resolved (6) Colon cancer metastasized to liver Current Visit: No Status: Chronic (7) Palliative care encounter Current Visit: Yes Status: Acute - Time Spent With Patient Total time spent is greater than 50% in coordination of care (as documented) at patient's floor/unit and/or counseling patient: - Subjective Interval history: Patient sleeping quietly. Did not awaken during assessment. Sitter at bedside states she was awake earlier and ate breakfast. No family present. - Constitutional Vitals: Abnormal lab results WBC 12.3 K/mcL (4.3-11.1) H 01/06/19 00:25 RBC 3.29 M/mcL (3.82-4.97) L 01/13/19 03:50 Hgb 9.7 g/dL (11.5-15.4) L 01/13/19 03:50 Hct 32.7 % (35.3-44.9) L 01/13/19 03:50 MCV 101.7 fL (83.0-100.0) H 01/06/19 00:25 MCHC 29.7 g/dL (31.6-35.5) L 01/13/19 03:50 RDW 16.9 % (11.5-14.5) H 01/13/19 03:50 9.8 K/mcL (1.6-8.9) H 01/05/19 05:34 1.6 K/mcL (0.0-1.3) H 01/13/19 03:50 Nucleated RBCs/100 WBC 0.3 /100 WBC (0) H 01/12/19 01:20 PT 14.5 Seconds (9.4-12.1) H 01/04/19 13:53 Sodium 146 mEq/L (136-145) H 01/12/19 10:50 Chloride 110 mEq/L (98-107) H 01/13/19 03:50 Carbon Dioxide 22 mEq/L (23-29) L 01/13/19 03:50 BUN 27 mg/dL (8-23) H 01/10/19 05:32 1.23 mg/dL (0.60-1.20) H 01/13/19 03:50 Est GFR ( Amer) 52 (> 60) L 01/13/19 03:50 Est GFR (Non-Af Amer) 43 (> 60) L 01/13/19 03:50 30 (6-26) H 01/07/19 04:33 Glucose 111 mg/dL (70-105) H 01/13/19 03:50 POC Glucose 249 mg/dL (70-99) H 01/15/19 00:22 6.8 % (-5.6) H 01/05/19 09:16 313 (280-300) H 01/12/19 01:20 Calcium 8.1 mg/dL (8.6-10.3) L 01/12/19 01:20 142 Units/L (34-104) H 01/10/19 05:32 21 Units/L (30-223) L 01/04/19 13:53 0.04 ng/mL (< 0.04) H* 01/04/19 19:40 2.8 g/dL (3.5-5.7) L 01/10/19 05:32 3.7 g/dL (2.4-3.5) H 01/10/19 05:32 0.8 (1.1-2.2) L 01/10/19 05:32 TSH 0.127 mcIU/mL (0.340-5.600) L 01/04/19 13:53 Turbid (Clear) A 01/04/19 13:45 Ur Leukocyte Esterase Large (Negative) H 01/04/19 13:45 5-15 per hpf (0-3) H 01/04/19 13:45 TNTC per hpf (0-3) H 01/04/19 13:45 Ur Squamous Epith Cells Many per lpf (None-Few) H 01/04/19 13:45 Many per hpf (None-Few) H 01/04/19 13:45 Ur Culture Indicated? YES (NO) A 01/04/19 13:45 U Benzodiazepines Scrn Positive ng/mL (Picqvf=[id number]) H 01/04/19 13:45 General appearance: Present: no acute distress - Respiratory Respiratory exam: Present: decreased breath sounds, CTAB - Cardiovascular Cardiovascular exam: Present: +S1, +S2 - GI/Abdominal GI/Abdominal exam: Present: distended, normal bowel sounds, soft - Extremities Exam Extremities exam: Present: normal capillary refill, normal inspection - Skin Skin exam: Present: dry, pallor, warm (Dressings to lower extremities D/I. ) Palliative Quality Palliative Quality: Screen for Code Status: Yes, Screen for Goals of Care: Yes, Screen for Pain: Yes, If Pain Regimen Started, Initiate Bowel Regimen: Yes, Screen for Nausea/Vomitting: Yes Code Status: 01/04/19 16:14 Resuscitation Status: Active [RES] Routine Comment: Resuscitation Status: Full Code 01/12/19 11:46 DNR [Resuscitation Status: Active] [RES] Routine Comment: Resuscitation Status: DNR-Comfort Care - Labs CBC & Chem 7: 01/13/19 03:50 01/13/19 03:50 Labs: Laboratory Results - last 24 hr 01/13/19 01/13/19 01/13/19 05:21 12:26 16:56 POC Glucose 140 H 187 H 106 H 01/13/19 01/14/19 01/14/19 23:10 04:58 06:46 POC Glucose 161 H 207 H 193 H 01/14/19 01/14/19 01/15/19 12:02 17:40 00:22 POC Glucose 187 H 170 H 249 H - ABG Interpretation ABG results: PT/INR, D-dimer PT 14.5 Seconds (9.4-12.1) H 01/04/19 13:53 Palliative Scale - Palliative Performance Scale How ambulatory is this patient?: Totally bed bound What is patient's level of activity and evidence of disease?: Unable to do most activity, Extensive disease How much self-care assistance does patient require?: Total care How much oral intake does the patient have?: Minimal to sips What is this patient's level of consciousness?: Full or drowsy with or without confusion Palliative Performance Score: 30 % Consult Discharge Plan - Plan Referrals: Olvin Gaming DPM [Partnered Physician] - Prescriptions: LORazepam Oral Conc [Ativan Oral Conc] 1 mg PO Q6HR PRN 14 Days #30 mls PRN Reason: anxiety/restlessness Haloperidol Oral Conc [Haldol] 1 mg PO Q6H PRN 14 Days #30 mls PRN Reason: Agitation OXYCODONE Oral CONC [Oxycodone Oral Conc] 10 mg PO Q3H PRN 14 Days #30 oral.syg PRN Reason: cancer related pain
== END 2019-01-15 15:17 | disposition hospice, home (50) | DRG 689 ==
LOC: EMEROOARM 13:17 → 3BNU 13:17 → SUATTDRO 15:20 → 3BNU 16:14 → SUATTDRO 01-06 15:27
PROVIDERS: ADMIT Student in an Organized Health Care Education/Training Program; ATTEND Internal Medicine